=== PATIENT | female | born 1960 ===

== ENCOUNTER 2024-06-25 18:09 | Outpatient (REF) | payer OTHER, SELFPAY ==
[2024-06-25 18:14] LABS: MANUAL DIFF FLAG NO
[2024-06-25 18:20] LABS: Basophils Absolute Auto 0.1 X10*3/uL (0.0-0.2); Basophils Percent Auto 0.7 % (0-2); Eosinophils Absolute Auto 0.2 X10*3/uL (0.0-0.4); Eosinophils Percent Auto 1.8 % (0-4); Hemoglobin 10.9 g/dl (12.0-16.0); Imm Gran Abs Auto 0.03 X10*3/uL (0.00-0.03); Imm Gran Pct Auto 0.3 % (0.0-0.4); Lymphocytes Absolute Auto 2.8 X10*3/uL (1.2-4.9); Lymphocytes Percent Auto 32.1 % (20-40); Mean Corpuscular HGB Conc 31.1 g/dl (31.0-35.0); Mean Corpuscular Hemoglobin 28.1 pg (27.0-33.0); Mean Corpuscular Volume 90.2 fL (80.0-98.0); Mean Platelet Volume 9.4 fL (9.4-12.3); Monocytes Absolute Auto 0.8 X10*3/uL (0.1-1.2); Monocytes Percent Auto 9.3 % (2-11); Neutrophils Absolute Auto 4.9 x10*3/uL (2.0-8.3); Neutrophils Percent Auto 55.8 % (45-73); Platelet Count 343 X10*3/uL (160-400); Red Blood Count 3.88 X10*6/uL (4.20-5.50); Red Cell Distribution Width 15.8 % (11.0-16.0); White Blood Count 8.8 X10*3/uL (4.8-10.8)
[2024-06-25 19:02] LABS: Alanine Aminotransferase 26 U/L (0-31); Alkaline Phosphatase 112 U/L (39-117); Anion Gap 14 (12-20); Aspartate Amino Transferase 27 U/L (5-31); Bilirubin Direct 0.1 mg/dL (0.0-0.5); Bilirubin Total 0.3 mg/dL (0.0-1.0); Blood Urea Nitrogen 16 mg/dL (9-16); C Reactive Protein 0.38 mg/dL (< or = 0.50); Calcium 8.8 mg/dL (8.4-10.2); Carbon Dioxide 26 mmol/L (22-29); Chloride 106 mmol/L (96-108); Estimated Glomerular Filt Rate > 60; Glucose Random 95 mg/dL (60-115); Potassium 4.7 mmol/L (3.3-5.1); Sodium 141 mmol/L (135-145); Total Protein 7.3 g/dL (6.5-8.0)
[2024-06-25 19:04] LABS: Erythrocyte Sedimentation Rate 62 MM/HR (0-20)
--- OUTSIDE RECORDS SUMMARY | 2024-06-25 19:18 | XMS_ITS | Encounter Summary ---
Demographics Address [address] [place] [address] Mobile Phone Home Phone Email Address Preferred Language Tajik Marital Status Baptist Affiliation Unknown Race White Ethnic Group Unknown Author Organization [facility] Address [address] [place] [address] Support Name Relationship Address Phone Houston Haas Emergency Contact [address] [place] [address] Shana Danielle Emergency Contact [address] [place] [address] Care Team Providers Care Production Line Mechanic Name Role Phone CostaAlfreda Primary Care Provider [phone] Leela Nieto MANAGER TRANSITION Unavailable Unavailable Encounter Details Date Type Department Care Team (Late st Contact Info) Description 10/16/2019 Orders Only [facility] [address] [place] [phone] Marybeth Chacon MD [address] [place] [phone] Social History Tobacco Use Types Packs/Day Years Used Date Smoking Tobacco: Never Smokeless Tobacco: Never Alcohol Use Standard Drinks/Week Comments Yes 1 (1 standard drink = 0.6 oz pure alcohol) occasional, 1 drink per week at the most Comments No Sex and Gender Information Value Date Recorded Sex Assigned at Not on file Legal Sex Female 2:53 AM EDT Gender Identity Not on file Sexual Orientation Not on file 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 No / Unsure 10/16/2019 3:46 PM EDT documented as of this encounter Progress Notes * Staci De Los Santos - 10/16/2019 3:58 PM EDT . * Leela Nieto NP - 10/16/2019 3:58 PM EDT MCM sent documented in this encounter Plan of Treatment Upcoming Encounters Date Type Department Care Team (Late st Contact Info) Description 06/27/2024 11:00 AM EST Office Visit [facility] [address] [place] [address] Deanne Ibarra PA [address] [place] [address] HFU 08/16/2024 10:25 AM EDT CPE - Comprehensive Physical Exam [facility] [address] [place] [address] Alfreda Costa DO [address] [place] [address] Physical [facility] 02/27/2025 1:15 PM EST Radiology [address] Mammography [address] [place] [address] documented as of this encounter Procedures * Due to [place] [email or web address] law, this organization might not be sharing negative HIV tests. Procedure Name Priority Date/Time Associated Diagnosis Comments THYROID STIMULATING HORMONE (TSH) WITH FREE T4 REFLEX, SERUM Routine 10/16/2019 3:58 PM EDT Weight gain documented in this encounter Results * Due to [place] [email or web address] law, this organization might not be sharing negative HIV tests. * THYROID STIMULATING HORMONE (TSH) WITH FREE T4 REFLEX, SERUM (10/16/2019 3:58 PM EDT) TSH 0.49 0.40 - 4.50 mIU/L [facility] 10/16/2019 3:58 PM EDT 10/16/2019 11:00 PM EDT Narrative Resulting Agency Comment [id number] us Marybeth Chacon MD LABORATORY Final Result [facility] [address] [place] [address] documented in this encounter Visit Diagnoses Diagnosis Weight gain Abnormal weight gain documented in this encounter Additional Health Concerns Infection Onset Date Last Indicated Resolved Time COVID-19 Rule-Out 01/05/2021 01/05/2021 01/06/2021 11:16 AM EDT documented as of this encounter Care Teams Production Line Mechanic Relationship Specialty Start Date End Date Alfreda Costa DO [address] [place] [address] PCP - General Internal Medicine 09/03/19 Leela Nieto NP [address] [place] [address] PCP - Backup PCP Internal Medicine 09/03/19 11/17/22 documented as of this encounter
--- OUTSIDE RECORDS SUMMARY | 2024-06-25 19:18 | XMS_ITS | Encounter Summary ---
Demographics Address [address] [place] [address] Mobile Phone Home Phone Email Address [email or web address] Preferred Language Nauruan Marital Status Christianity Affiliation Unknown Race White Ethnic Group Unknown Author Organization [facility] Address [address] [place] [address] Support Name Relationship Address Phone [place] Haas Emergency Contact [address] [place] [address] Shana Danielle Emergency Contact [address] [place] [address] Care Team Providers Care Plain Goods Hemmer Name Role Phone IgorAlfreda Primary Care Provider [phone] Encounter Details Date Type Department Care Team (Late st Contact Info) Description 05/29/2024 Consult (Initial) NON FC SA [facility] [address] [place] [address] [facility], Unknown Provider Social History Tobacco Use Types Packs/Day Years Used Date Smoking Tobacco: Never Smokeless Tobacco: Never Alcohol Use Standard Drinks/Week Comments Not Currently 1 (1 standard drink = 0.6 oz pure alcohol) occasional, 1 drink per week at the most PHQ-2 Answer Date Recorded PHQ-2 Score 0 08/08/2023 Intimate Partner Violence Answer Date R ecorded Fear of Current or Ex-Partner Not on file Emotionally Abused Not on file 12/10/2022 Physically Abused Not on file 12/10/2022 Sexually Abused Not on file 12/10/2022 Feel Safe at Home Not on file 12/10/2022 Comments No Sex and Gender Information Value Date Recorded Sex Assigned at Not on file Legal Sex Female 2:53 AM EDT Gender Identity Not on file Sexual Orientation Not on file 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 Denies any recent illness. REASON FOR CONSULTATION: ? Depression HISTORY OF PRESENT ILLNESS: Patient is a 63-year-old female with history of depression, currently admitted for concerns of PE, attempted to evaluate for depression. Patient was attempted to be evaluated this afternoon, patient was present with a family member. The patient was reluctant to talk about her psychiatric issues and did not want to engage in conversation with his provider. Patient stated she needs to see a psychiatrist, she will inform the team at some other point. Patient wanted to end the conversation with this provider, this provider has respected her decision. PHYSICAL EXAM: VITAL SIGNS: Vital Signs: Last Charted: 24 Hr Minimum: 24 Hr Maximum: Temperature Oral 37.0 (05/29 07:30) 37.0 (05/29 03:50) 37.1 (05/28 19:15) Heart Rate 89 (05/29 07:30) 85 (05/29 03:50) 97 (05/28 19:15) Respiratory Rate 16 (05/29 07:30) 16 (05/29 00:25) 17 (05/28 19:15) Systolic BP 96 (05/29 07:30) 96 (05/28 19:15) 99 (05/29 03:50) Diastolic BP 61 (05/29 07:30) 58 (L) (05/28 19:15) 62 (05/29 00:25) Blood Pressure Location Left, Uppe (05/29 03:50) Blood Pressure Method Automatic (05/29 07:30) Oxygen Percent 90 (05/29 07:30) 90 (05/29 07:30) 96 (05/29 03:50) MEDICAL DECISION MAKING: Adjust Lamical dose and cymbalta dose after contacting providers. ASSESSMENT/PLAN: 1. Leukocytosis (D72.829) 2. Ambulatory dysfunction (R26.2) 3. Memory loss (R41.3) Diagnosis: History of major depressive disorder. Patient was attempted to be evaluated for depression but patient did not want to talk with this provider. This provider has reviewed the patient's medication list and recommend the following. The dose of Lamictal is over the recommended dose, would recommend contacting with her outpatient prescriber, the usual recommended dose for Lamictal is up to 400 mg a day. Also the dose of Cymbalta is maximum dose, would recommend dose adjustment after consulting her outpatient provider. If patient wants psychiatric evaluation, she was told to inform the nurse. This provider will reevaluate if patient feels she needs any psychiatric help. PROBLEM LIST/PAST MEDICAL HISTORY: Ongoing Bipolar (Patient Stated) Depression (Patient Stated) Historical No qualifying data SOCIAL HISTORY: Home/Environment Human Trafficking Red Flags None., 07/14/2023 Smoking/Tobacco Use Smoking tobacco use: Never smoker., 07/14/2023 Substance Abuse Use: Denies use., 07/14/2023 MEDICATIONS: Medications (18) Active Scheduled: (12) acetaminophen (Tylenol) 975 mg = 3 tab, Oral, Q8hr atorvastatin 40 mg = 1 tab, Oral, Daily cefTRIAXone 2 g, IV Piggyback, [id number] duloxetine (DULoxetine) 120 mg = 2 cap, Oral, Daily haloperidol 0.5 mg = 0.5 tab, Oral, BID lamoTRIgine 200 mg = 1 tab, Oral, TID oxyCODONE 20 mg = 4 tab, Oral, Q6hr polyethylene glycol 3350 (MiraLax) 17 g = 1 packet(s), Oral, Daily psyllium (Metamucil) 3.4 g = 1 packet(s), Oral, Daily senna 17.2 mg = 2 tab, Oral, Q Bedtime traMADol 25 mg = 0.5 tab, Oral, Q6hr traZODONE (traZODone) 150 mg = 1 tab, Oral, Q Bedtime Continuous: (0) PRN: (6) clonazePAM 0.5 mg = 1 tab, Oral, TID docusate (Colace) 100 mg = 1 cap, Oral, BID ondansetron (Zofran) 4 mg = 2 mL, IV Push, Q8hr polyethylene glycol 3350 (MiraLax) 17 g = 1 packet(s), Oral, Daily senna (Senokot) 8.6 mg = 1 tab, Oral, Daily sodium chloride (sodium chloride 0.9% flush) 10 mL, IV Push, As Directed ALLERGIES: Allergies (3) Active Reaction ampicillin rash Keflex rash penicillin rash LAB RESULTS: Hematology Basic - Last 36 hours (34) Result Date/Time WBC 16.1 (H) 05/29 02:20 RBC 3.44 (L) 05/29 02:20 Hgb 9.6 (L) 05/29 02:20 Hct 30.1 (L) 05/29 02:20 MCV 88 05/29 02:20 MCH 28 05/29 02:20 MCHC 32 05/29 02:20 RDW-SD 47 05/29 02:20 Platelet Count 516 (H) 05/29 02:20 MPV 8.6 05/29 02:20 NRBC Auto Abs 0.00 05/29 02:20 NRBC Auto Rel 0 05/29 02:20 Neutrophil Rel 62 05/29 02:20 Lymphocyte Rel 24 (L) 05/29 02:20 Monocyte Rel 7 05/29 02:20 Eosinophil Rel 2 05/29 02:20 Basophil Rel 0 05/29 02:20 Imm Gran Rel 4 05/29 02:20 Neutrophil Abs 10.1 (H) 05/29 02:20 Lymphocyte Abs 3.8 05/29 02:20 Monocyte Abs 1.1 (H) 05/29 02:20 Eosinophil Abs 0.32 05/29 02:20 Basophil Abs 0.07 05/29 02:20 Imm Gran Abs 1 05/29 02:20 Segs Man 58 05/28 02:18 Band Man 1 05/28 02:18 Lymphocyte Man 30 05/28 02:18 Monocyte Man 5 05/28 02:18 Eos Man 2 05/28 02:18 Basophil Man 0 05/28 02:18 Metamyelo Man 2 05/28 02:18 Myelocyte Man 2 05/28 02:18 Cells Counted 100 cell diff 05/28 02:18 Plt Estimate Appears Normal 05/28 02:18 Chemistry Comprehensive - Last 36 hours (23) Result Date/time Sodium Lvl 138 05/29 02:20 Potassium Lvl 4.6 05/29 02:20 Chloride Lvl 100 05/29 02:20 CO2 30 05/29 02:20 Glucose Level 109 (H) 05/29 02:20 BUN 12 05/29 02:20 Creatinine Lvl 0.83 05/29 02:20 AGAP 8.0 05/29 02:20 BUN/Creat 14 05/29 02:20 Total Protein 7.1 05/29 02:20 Albumin Lvl 3.0 (L) 05/29 02:20 Calcium Lvl 9.1 05/29 02:20 Alk Phos 199 (H) 05/29 02:20 AST 28 05/29 02:20 ALT 20 05/29 02:20 Globulin 4.1 05/29 02:20 Osmolality Calc 286 05/29 02:20 A/G Ratio 0.7 (L) 05/29 02:20 Magnesium Lvl 2.3 05/29 02:20 Phosphate 4.6 (H) 05/28 02:18 Bili Total 0.2 05/29 02:20 Bili Direct <0.2 05/29 02:20 Bili Indirect >0.0 05/29 02:20 RADIOLOGY/DIAGNOSTIC RESULTS: Radiology - Last 36 hours (0) No results in past 36 hours Diagnostics - Non-Radiology (3) Non-Invasive Vascular Report (05/21 11:05) Please review the final report in the patient?s chart. Cardiology Reports (05/21 08:32) Please review the final report in the patient?s chart. ED EKG-CernerCV (05/20 00:19) Please review the final report in the patient?s chart. documented in this encounter Plan of Treatment Upcoming Encounters Date Type Department Care Team (Late st Contact Info) Description 06/27/2024 11:00 AM EST Office Visit [facility] 4 [place] [phone] Deanne Ibarra PA 4 [place] [address] HFU 08/16/2024 10:25 AM EDT CPE - Comprehensive Physical Exam [facility] 4 [facility] [place] [phone] Alfreda Costa DO 4 [place] [address] Physical - [facility] 02/27/2025 1:15 PM EST Rad[facility] [address] [facility] [facility] [address] [facility] [place] [place] [address] documented as of this encounter Visit Diagnoses Not on filedocumented in this encounter Care Teams Plain Goods Hemmer Relationship Specialty Start Date End Date Alfreda Costa DO [address] [place] [address] PCP - General Internal Medicine 09/03/19 documented as of this encounter
--- OUTSIDE RECORDS SUMMARY | 2024-06-25 19:18 | XMS_ITS | Encounter Summary ---
Demographics Address [address] [place] [address] Mobile Phone Home Phone Email Address [email or web address] Preferred Language Guatemalan Marital Status Nondenominational Affiliation Unknown Race White Ethnic Group Unknown Author Organization [facility] Address [address] [place] [address] Support Name Relationship Address Phone [place] Jangain Emergency Contact [address] [place] [address] Shana Danielle Emergency Contact [address] [place] [address] Care Team Providers Care Mud Mill Tender Name Role Phone Alfreda Costa Primary Care Provider [phone] Leela Nieto MAIL HANDLER Unavailable Unavailable Encounter Details Date Type Department Care Team (Late st Contact Info) Description 10/16/2019 Orders Only [facility]. Rheumatology [address] [place] [phone] Renetta Bailon MD Social History Tobacco Use Types Packs/Day Years [...] as of this encounter Progress Notes * Renetta Bailon MD - 10/16/2019 3:58 PM EDT . * Renetta Bailon MD - 10/16/2019 3:58 PM EDT . documented in this encounter Plan of Treatment Upcoming Encounters Date Type Department Care Team (Late st Contact Info) Description 06/27/2024 11:00 AM EST Office Visit [facility] [address] [place] [address] Deanne Ibarra PA [address] [place] [address] HFU 08/16/2024 10:25 AM EDT CPE - Comprehensive Physical Exam [facility] [address] [place] [phone] Alfreda Costa DO 4 [place] [address] Physical - [facility] 02/27/2025 1:15 PM EST Radiology [address] Mammography [address] [place] [address] documented as of this encounter Procedures * Due to [place] [employer] law, this organization might not be sharing negative HIV tests. Procedure Name Priority Date/Time Associated Diagnosis Comments VENIPUNCTURE Routine 10/16/2019 3:58 PM EDT Hand pain, left Hand pain, right Chronic bilateral low back pain without sciatica C-REACTIVE PROTEIN (CRP) - INFLAMMATION Routine 10/16/2019 3:58 PM EDT Hand pain, left Hand pain, right ERYTHROCYTE SEDIMENTATION RATE (ESR) Routine 10/16/2019 3:58 PM EDT Hand pain, left Hand pain, right documented in this encounter Results * Due to [place] state law, this organization might not be sharing negative HIV tests. * C-REACTIVE PROTEIN (CRP) - INFLAMMATION (10/16/2019 3:58 PM EDT) C reactive protein 0.3 <8.0 mg/L [facility] 10/16/2019 3:58 PM EDT 10/16/2019 11:00 PM EDT Narrative Resulting Agency Comment [id number] Renetta Bailon MD LABORATORY Final Result [facility] [address] [place] [address] * ERYTHROCYTE SEDIMENTATION RATE (ESR), [place] (10/16/2019 3:58 PM EDT) Sedimentation Rate [place] (ESR) 6 < OR = 30 mm/h [facility] 10/16/2019 3:58 PM EDT 10/16/2019 11:00 PM EDT Narrative Resulting Agency Comment [id number] Renetta Bailon MD LAB SAME DAY RESULT Final Result Performing Organization Address [facility] Co de Phone Number [facility] [address] [place] [address] * HLA-B27 ANITGEN (10/16/2019 3:58 PM EDT) HLA-B27 Negative Negative [facility] 10/16/2019 3:58 PM EDT 10/16/2019 11:00 PM EDT Narrative Resulting Agency Comment [id number] Renetta Bailon MD LABORATORY Final Result Performing Organization Address [facility] Co de Phone Number [facility] [address] [place] [address] documented in this encounter Visit Diagnoses Diagnosis Hand pain, left Pain in limb Hand pain, right Pain in limb Chronic bilateral low back pain without sciatica documented in this encounter Additional Health Concerns Infection Onset Date Last Indicated Resolved Time COVID-19 Rule-Out 01/05/2021 01/05/2021 01/06/2021 11:16 AM EDT documented as of this encounter Care Teams Mud Mill Tender Relationship Specialty Start Date End Date Alfreda Costa DO [address] [place] [address] PCP - General Internal Medicine 09/03/19 Leela Nieto NP [address] [place] [address] PCP - Backup PCP Internal Medicine 09/03/19 11/17/22 documented as of this encounter
--- OUTSIDE RECORDS SUMMARY | 2024-06-25 19:18 | XMS_ITS | Encounter Summary ---
Demographics Address [address] [place] [address] Mobile Phone Home Phone Email Address Preferred Language Equatorial Guinean Marital Status Religion Affiliation Unknown Race White Ethnic Group Unknown Author Organization [facility] Address [address] [place] [address] Support Name Relationship Address Phone [place] Haas Emergency Contact [address] [place] [address] Shana Danielle Emergency Contact [address] [place] [address] Care Team Providers Care Tube Coverer Name Role Phone IgorAlfreda Primary Care Provider [phone] Encounter Details Date Type Department Care Team (Late st Contact Info) Description 05/30/2024 Minor Procedure/Test NON FC SA [facility] [address] [place] [address] Sv, Unknown Provider Social History Tobacco Use Types [...] on file documented as of this encounter Procedure Notes * Svh, Unknown Provider - 05/30/2024 10:06 AM ESTAssociated Order(s): PROCEDURE NOTE PROCEDURE: Placement of Midline Catheter at the patient's bedside INDICATION: Intravenous access requested for 2 weeks IV Ceftriaxone SKIP MINER BLASTING: Jodi Ortega RN MEDICATIONS: Local anesthesia with 1% Lidocaine GUIDANCE: Ultrasound DEVICE: BARD POLYMIDLINE 4 Fr x 20 cm single lumen polyurethane catheter lot # [id number] COMPLICATIONS: None TECHNIQUE: Informed consent was obtained from the patient after discussion of risks, benefits and alternatives. The patient was prepped and draped using maximal barrier technique. A timeout was performed. After local anesthesia with 1% Lodcaine, the Left Basilic vein was accessed with a 21 gauge needle under sterile sonographic guidance. The access needle was exchanged for a peel-away sheath over a 0/018 wire. The determination for the appropriate catheter length was based on anthropometric measurements. The Midline was inserted in the left Basilic vein with tip terminating in the axilla. The lumen was flushed with 20mL normal saline, aspirated blood briskly and terminally flushed with Heparin 50units per 5mL NS. The catheter was secure with a StatLock adhesive device and covered with a sterile dressing. The patient tolerated the procedure well with no insertion related complications. Placement of 4 Fr x 20 cm Single Bard PolyMidline via the Left Basilic vein. The position of the catheter tip in the axilla. documented in this encounter Plan of Treatment Upcoming Encounters Date Type Department Care Team (Late st Contact Info) Description 06/27/2024 11:00 AM EST Office Visit [facility] [address] [place] [phone] Deanne Ibarra PA 4 [place] [address] HFU 08/16/2024 10:25 AM EDT CPE - Comprehensive Physical Exam [facility] [address] [place] [phone] Alfreda Costa DO [address] [place] [address] Physical - [facility] S[facility] 02/27/2025 1:15 PM EST Radiology [address] Mammography [address] [place] [address] documented as of this encounter Procedures * Due to [facility] law, this organization might not be sharing negative HIV tests. Procedure Name Priority Date/Time Associated Diagnosis Comments PROCEDURE NOTE 05/30/2024 documented in this encounter Results * Due to [place] [employer] law, this organization might not be sharing negative HIV tests. * PROCEDURE NOTE (05/30/2024) Narrative 05/30/2024 Ordered by an unspecified provider. Procedure Note [facility], Unknown Provider - 05/30/2024 10:06 AM EST PROCEDURE: Placement of Midline Catheter at the patient's bedside INDICATION: Intravenous access requested for 2 weeks IV Ceftriaxone SKIP MINER BLASTING: Jodi Ortega RN MEDICATIONS: Local anesthesia with 1% Lidocaine GUIDANCE: Ultrasound DEVICE: BARD POLYMIDLINE 4 Fr x 20 cm single lumen polyurethane catheterlot # [id number] COMPLICATIONS: None TECHNIQUE: Informed consent was obtained from the patient after discussionof risks, benefits and alternatives. The patient was prepped and drapedusing maximal barrier technique. A timeout was performed. After localanesthesia with 1% Lodcaine, the Left Basilic vein was accessed with a 21 gaugeneedle under sterile sonographic guidance. The access needle was exchanged fora peel-away sheath over a 0/018 wire. The determination for theappropriate catheter length was based on anthropometric measurements. The Midlinewas inserted in the left Basilic vein with tip terminating in the axilla. The lumen was flushed with 20mL normal saline, aspirated blood brisklyand terminally flushed with Heparin 50units per 5mL NS. The catheter wassecure with a StatLock adhesive device and covered with a sterile dressing. The patient tolerated the procedure well with no insertion relatedcomplications. Placement of 4 Fr x 20 cm Single Bard PolyMidline via the Left Basilicvein. The position of the catheter tip in the axilla. us Unknown Provider [facility] PROCEDURE NON-FC (HIWAY) Fi nal Result documented in this encounter Visit Diagnoses Not on filedocumented in this encounter Care Teams Tube Coverer Relationship Specialty Start Date End Date Alfreda Costa DO [address] [place] [address] PCP - General Internal Medicine 09/03/19 documented as of this encounter
--- OUTSIDE RECORDS SUMMARY | 2024-06-25 19:18 | XMS_ITS | Encounter Summary ---
Demographics Address [address] [place] [address] Mobile Phone Home Phone Email Address Preferred Language Sri Lankan Marital Status Congregational Affiliation Unknown Race White Ethnic Group Unknown Author Organization [facility] Address [address] [place] [address] Support Name Relationship Address Phone [facility] Contact 2 [address] [place] [address] Shana Danielle Emergency Contact [address] [place] [address] Care Team Providers Care Health Care Manager Name Role Phone Alfreda Costa DO Primary Care Provider [phone] Reason for Visit * Reason Comments Other Sick letter Encounter Details Date Type Department Care Team (Late st Contact Info) Description 05/15/2024 Telephone [facility] [address] [place] [phone] Alfreda Costa DO 4 [place] [address] Other (Sick letter ) Social History Tobacco Use Types Packs/Day Years [...] on file documented as of this encounter Miscellaneous Notes * Telephone Encounter - TatoTrina webb - 05/15/2024 8:31 AM EST Pt calling, says her employer is requesting a note stating she is able to return to work. Pt was dizzy, fell, had wallace removed. Due to her dizziness, the employer says she is unable to return to work without a note. Pt wants this by noon today. Routing to PSS. Can you pls ask Dr. Costa to sign this letter by noon today? documented in this encounter Plan of Treatment Upcoming Encounters Date Type Department Care Team (Late st Contact Info) Description 06/27/2024 11:00 AM EST Office Visit [facility] [address] [place] [address] Deanne Ibarra PA 4 [place] [address] U 08/16/2024 10:25 AM EDT CPE - Comprehensive Physical Exam [facility] [address] [place] [address] Alfreda Costa DO 4 [place] [address] Physical - [facility] 02/27/2025 1:15 PM EST Radiology [address] Mammography 5 [place] [address] documented as of this encounter Visit Diagnoses Not on filedocumented in this encounter Care Teams Health Care Manager Relationship Specialty Start Date End Date Alfreda Costa DO 4 [place] [address] PCP - General Internal Medicine 09/03/19 documented as of this encounter
--- OUTSIDE RECORDS SUMMARY | 2024-06-25 19:18 | XMS_ITS | Encounter Summary ---
Demographics Address [address] [place] [address] Mobile Phone Home Phone Email Address Preferred Language Turkmen Marital Status Samaritan Affiliation Unknown Race White Ethnic Group Unknown Author Organization [facility] Address [address] [place] [address] Support Name Relationship Address Phone [place] [facility] Contact 2 [address] [place] [address] Shana Danielle Emergency Contact [address] [place] [address] Care Team Providers Care Adventure Guide Name Role Phone CostaAlfreda Primary Care Provider [phone] Encounter Details Date Type Department Care Team (Latest Contact Info) Description 05/21/2024 Professional Billing [facility] Based Manager Investment Donnell Qureshi MD Unsteady gait-PT; Leukocytosis, unspecified type; Acute anemia; Bilateral pulmonary embolism; Hypotension, unspecified hypotension type; Gram-positive cocci bacteremia; Muscle abscess; Acute deep vein thrombosis (DVT) of left peroneal vein; MOOD DISORDER xx0.33xx Social History Tobacco Use Types Packs/Day Years [...] on file documented as of this encounter Plan of Treatment Upcoming Encounters Date Type Department Care Team (Late st Contact Info) Description 06/27/2024 11:00 AM EST Office Visit [facility] 4 [place] [address] Deanne Ibarra PA 4 [place] [address] HFU 08/16/2024 10:25 AM EDT CPE - Comprehensive Physical Exam [facility] 4 [place] [phone] Alfreda Costa DO 4 [place] [address] Physical - LETTER SENT TO [facility] 02/27/2025 1:15 PM EST Radiology [facility] [address] [place] [address] documented as of this encounter Visit Diagnoses Diagnosis Unsteady gait-PT Abnormality of gait Leukocytosis, unspecified type Acute anemia Bilateral pulmonary embolism (HCC) Other pulmonary embolism and infarction Hypotension, unspecified hypotension type Gram-positive cocci bacteremia Bacteremia Muscle abscess Other disorder of muscle, ligament, and fascia Acute deep vein thrombosis (DVT) of left peroneal vein (HCC) MOOD DISORDER xx0.33xx documented in this encounter Care Teams Adventure Guide Relationship Specialty Start Date End Date Alfreda Costa DO 4 [place] [address] PCP - General Internal Medicine 09/03/19 documented as of this encounter
--- OUTSIDE RECORDS SUMMARY | 2024-06-25 19:19 | XMS_ITS | Encounter Summary ---
Demographics Address [address] [place] [address] Mobile Phone Home Phone Email Address Preferred Language Cypriot Marital Status Latter Day Affiliation Unknown Race White Ethnic Group Unknown Author Organization [facility] Address [address] [place] [address] Support Name Relationship Address Phone [place] [facility] Contact [address] [place] [address] Shana Danielle Emergency Contact [address] [place] [address] Care Team Providers Care Waiter/Waitress Economy Class Name Role Phone CostaAlfreda Primary Care Provider [phone] Encounter Details Date Type Department Care Team (Late Contact Info) Description 06/20/2024 Minor Procedure/Test [facility] [address] [place] [address] [facility], Unknown Provider Social History Tobacco Use Types [...] Encounters Date Type Department Care Team (Late Contact Info) Description 06/27/2024 11:00 AM EST Office Visit [facility] 4 [place] [address] Deanne Ibarra PA 4 [place] [address] U 08/16/2024 10:25 AM EDT CPE - Comprehensive Physical Exam [facility] 4 [place] [address] Alfreda Costa DO 4 [place] [address] Physical - LETTER SENT TO [facility] 02/27/2025 1:15 PM EST Radiology [facility]. Mammography 5 [place] [address] documented as of this encounter Visit Diagnoses Not on filedocumented in this encounter Care Teams Waiter/Waitress Economy Class Relationship Specialty Start Date End Date Alfreda Costa DO [address] [place] [address] PCP - General Internal Medicine 09/03/19 documented as of this encounter
--- OUTSIDE RECORDS SUMMARY | 2024-06-25 19:19 | XMS_ITS | Encounter Summary ---
Demographics Address [address] [place] [address] Mobile Phone Home Phone Email Address Preferred Language Tuvaluan Marital Status Samaritan Affiliation Unknown Race White Ethnic Group Unknown Author Organization [facility] Address [address] [place] [address] Support Name Relationship Address Phone [place] [facility] Contact [address] [place] [address] Shana Danielle Emergency Contact [address] [place] [address] Care Team Providers Care Machine Welder Name Role Phone IgorAlfreda Primary Care Provider [phone] Encounter Details Date Type Department Care Team (Late st Contact Info) Description 06/07/2024 Orders Only [facility] [address] [place] [address] [facility], Unknown Provider Social History Tobacco Use Types [...] as of this encounter Procedure Notes * [facility], Unknown Provider - 06/07/2024 3:56 PM ESTAssociated Order(s): UNCLASSIFIED TEST/PROCEDURE Images from the original note were not included. Procedures by Eliazar Hammond RN at 06/07/2024 3:51 PM Author: Eliazar Hammond RN Service: IV Access Nursing Author Type: Registered Nurse Filed: 06/07/2024 3:56 PM Date of Service: 06/07/2024 3:51 PM Status: Signed Swimming Coach: Eliazar Hammond RN (Registered Nurse) Procedure Orders 1. PROCESS DESCRIPTION WRITER PICC and Midline [[id number]] ordered by Eliazar Hammond RN [facility] IV Access Nursing Procedure Note PICC line insertion Date/Time: 06/07/2024 3:55 PM Performed by: Eliazar Hammond RN Provider type: External RN Vendor Reason for Insertion: intravenous antibiotics Successful placement: yes [place] Protocol Patient identity confirmed: Name and MRN on the patient's armband and Name and with patient Written consent obtained?: yes Procedure consent matches procedure to be performed: Yes All relevant documents/tests are correctly identified, labeled, and matched to patient: Yes Relevant tests/ Imaging studies available/reviewed: Yes Correct site marked: N/A Required blood products, implants, devices and special equipment available: Yes Immediately prior to the procedure a time out was called: Yes Pre-Procedure Central Line Bundle Sterile barrier technique: All Elements of full barrier protection used Skin preparation: ChloraPrep Ultrasound: Sterile sheath and gel used Site Assessment Vein Accessed: Right deep brachial Initial Arm Circumference (cm): 27 Procedure Details Local Anesthetic: Injectable Ultrasound guidance: yes Number of attempts: 1 Blood return in all lumens?: Yes All lumens flush freely?: Yes Catheter Secured: Catheter securement device Device Details Catheter Type: Bard PowerPICC Sherlock ECG Tip Catheter Lumens: Single lumen Catheter Size (fr): 4 Lot #: [id number] Catheter Total Length (cm): 38 Catheter External Length (cm): 0 Post-Procedure Central Line Bundle Guidewire Removal Confirmed?: Yes All Ports Capped?: Yes Verification of Line Placement: ECG guidance system Dressing Applied: Antimicrobial Post-Procedure Details Patient tolerance of procedure: Tolerated well, no immediate complications Significant events: None Plan: PICC line ready for immediate use Handoff Report Given to: MJ Alfredo RN Susan J Stgermain : 1960 CSN: [id number] documented in this encounter Plan of Treatment Upcoming Encounters Date Type Department Care Team (Late st Contact Info) Description 06/27/2024 11:00 AM EST Office Visit [facility] 4 [place] [phone] Deanne Ibarra PA 4 [place] [address] HFU 08/16/2024 10:25 AM EDT CPE - Comprehensive Physical Exam [facility] 4 [place] [phone] Alfreda Costa DO 4 [place] [address] Physical - LETTER SENT TO [facility] 02/27/2025 1:15 PM EST Radiology [address] [facility] [facility] 5 [place] [address] documented as of this encounter Procedures * Due to [place] [employer] law, this organization might not be sharing negative HIV tests. Procedure Name Priority Date/Time Associated Diagnosis Comments CBC AUTO DIFFERENTIAL Routine 06/14/2024 6:00 AM EST COMPREHENSIVE METABOLIC PANEL Routine 06/14/2024 5:00 AM EST CBC AUTO DIFFERENTIAL Routine 06/11/2024 5:00 AM EST BASIC METABOLIC PANEL Routine 06/11/2024 5:00 AM EST UNCLASSIFIED TEST/PROCEDURE 06/07/2024 3:51 PM EST documented in this encounter Results * Due to [place] [employer] law, this organization might not be sharing negative HIV tests. * (ABNORMAL) CBC AUTO DIFFERENTIAL (06/14/2024 6:00 AM EST) WBC 6.1 4.8 - 10.8 10*3/uL [facility] RBC 3.33(L) 4.20 - 5.40 10*6/uL [facility] Hemoglobin 9.3(L) 11.7 - 15.5 g/dL [facility] Hematocrit 28.9(L) 35.7 - 45.8 % [facility] MCV 86.8 81.0 - 99.0 fL [facility] MCH 27.9 26.0 - 34.0 pg [facility] MCHC 32.2 31.0 - 36.0 g/dL [facility] RDW 14.4 12.0 - 15.0 % [facility] RDW STANDARD DEVIATION 45.1 36.4 - 46.3 fL [facility] PLT 470(H) 140 - 440 10*3/uL [facility] Platelet mean volume 8.7(L) 9.4 - 12.3 fL [facility] Neutrophils % 36.6(L) 50.0 - 75.0 % [facility] Granulocytes.betty ture/100 leukocytes 0.5 0.0 - 0.9 % [facility] Lymphocytes % 45.6(H) 20.0 - 44.0 % [facility] Monocytes % 10.1 0.0 - 14.0 % [facility] Eosinophils % 6.4(H) 0.0 - 5.0 % [facility] Basophils % 0.8 0.0 - 2.0 % [facility] Neutrophils # 2.24 1.80 - 7.70 10*3/uL [facility] Immature Granulocytes # 0.03 0.00 - 0.03 10*3/uL [facility] Lymphocytes # 2.80 1.00 - 4.75 10*3/uL [facility] Monocytes # 0.60 0.00 - 0.60 10*3/uL [facility] Eosinophils # 0.40 0.00 - 0.80 10*3/uL [facility] Basophils # 0.10 0.00 - 0.20 10*3/uL [facility] Erythrocytes.nucl eated/100 leukocytes 0.0 0 - 0 /100 WBCs [facility] Erythrocytes.nucl eated <0.01 0.00 - 0.13 10*3/uL [facility] 06/14/2024 6:00 AM EST Narrative [facility] - 06/14/2024 8:44 AM EST NUR3^300^A^0156^^BED^0156 us Unknown Provider [facility] LABORATORY Final Resu lt [facility] [employer] [address] [place] [address] * (ABNORMAL) COMPREHENSIVE METABOLIC PANEL (06/14/2024 5:00 AM EST) Sodium 142 136 - 145 mmol/L [facility] Potassium 4.2 3.5 - 5.1 mmol/L [facility] Chloride 103 98 - 109 mmol/L [facility] Carbon dioxide 32 22 - 32 mmol/L [facility] Anion gap 11 >=0 [facility] Glucose 103(H) 60 - 99 mg/dL [facility] Creatinine 0.66 0.50 - 1.12 mg/dL [facility] Calcium 8.7 8.4 - 10.4 mg/dL [facility] Protein Total (Serum) 6.1(L) 6.6 - 8.7 g/dL [facility] Albumin 3.2(L) 3.5 - 5.0 g/dL [facility] Bilirubin Total 0.1(L) 0.2 - 1.2 mg/dL [facility] Alkaline phosphatase 123 40 - 129 U/L [facility] AST (SGOT) 27 0 - 33 U/L [facility] ALT (SGPT) 17 <=33 U/L [facility] Urea Nitrogen Blood (BUN) 8 8 - 23 mg/dL [facility] EGFR >90 >=60 mL/min/1.7 3m2 [facility] Comment: The estimated glomerular filtration rate (eGFR) is calculated using a new formula developed by the NKF-ASN task force to eliminate race-based correction factors. The new formula uses serum/plasma creatinine, age, and gender to determine eGFR. A value below 60mls/min might indicate kidney disease and will be flagged. For additional information, see Lia valentino al, Am J Kidney Dis. 2021;79(2):268-288, A Unifying Approach for GFR estimation: Recommendations of the NKF-ASN Task Force on Reassessing the Inclusion of Race in Diagnosing Kidney Disease . GLOBULIN, TOTAL 2.9 2.1 - 4.2 g/dL [facility] A/G RATIO 1.1(L) 1.5 - 3.0 [facility] 06/14/2024 5:00 AM EST Narrative [facility] - 06/14/2024 9:08 AM EST NUR3^300^A^0156^^BED^0156 NUR3\S\300\S\A\S\0156\S\S\BED\S\0156 us Unknown Provider [facility] LABORATORY Final Resu lt [facility] [employer] [address] [place] [id number] * (ABNORMAL) BASIC METABOLIC PANEL (06/11/2024 5:00 AM EST) Sodium 136 136 - 145 mmol/L [facility] Potassium 4.4 3.5 - 5.1 mmol/L [facility] Chloride 97(L) 98 - 109 mmol/L [facility] Carbon dioxide 28 22 - 32 mmol/L [facility] Urea Nitrogen Blood (BUN) 7(L) 8 - 23 mg/dL [facility] Creatinine 0.61 0.50 - 1.12 mg/dL [facility] Glucose 106(H) 60 - 99 mg/dL [facility] Calcium 8.5 8.4 - 10.4 mg/dL [facility] Anion gap 15 >=0 [facility] EGFR >90 >=60 mL/min/1.7 3m2 [facility] Comment: The estimated glomerular filtration rate (eGFR) is calculated using a new formula developed by the NKF-ASN task force to eliminate race-based correction factors. The new formula uses serum/plasma creatinine, age, and gender to determine eGFR. A value below 60mls/min might indicate kidney disease and will be flagged. For additional information, see Lia valentino al, Am J Kidney Dis. 2021;79(2):268-288, A Unifying Approach for GFR estimation: Recommendations of the NKF-ASN Task Force on Reassessing the Inclusion of Race in Diagnosing Kidney Disease . 06/11/2024 5:00 AM EST Narrative [facility] - 06/11/2024 9:45 AM EST NUR3^300^A^0156^^BED^0156 NUR3\S\300\S\A\S\0156\S\S\BED\S\0156 us Unknown Provider [facility] LABORATORY Final Resu lt [facility] [address] [place] [address] * (ABNORMAL) CBC AUTO DIFFERENTIAL (06/11/2024 5:00 AM EST) WBC 6.0 4.8 - 10.8 10*3/uL [facility] RBC 3.30(L) 4.20 - 5.40 10*6/uL [facility] Hemoglobin 9.2(L) 11.7 - 15.5 g/dL [facility] Hematocrit 28.4(L) 35.7 - 45.8 % [facility] MCV 86.1 81.0 - 99.0 fL [facility] MCH 27.9 26.0 - 34.0 pg [facility] MCHC 32.4 31.0 - 36.0 g/dL [facility] RDW 14.3 12.0 - 15.0 % [facility] RDW STANDARD DEVIATION 43.8 36.4 - 46.3 fL [facility] PLT 537(H) 140 - 440 10*3/uL [facility] Platelet mean volume 9.2(L) 9.4 - 12.3 fL [facility] Neutrophils % 60.4 50.0 - 75.0 % [facility] Granulocytes.betty ture/100 leukocytes 0.7 0.0 - 0.9 % [facility] Lymphocytes % 20.1 20.0 - 44.0 % [facility] Monocytes % 12.9 0.0 - 14.0 % [facility] Eosinophils % 5.4(H) 0.0 - 5.0 % [facility] Basophils % 0.5 0.0 - 2.0 % [facility] Neutrophils # 3.61 1.80 - 7.70 10*3/uL [facility] Immature Granulocytes # 0.04(H) 0.00 - 0.03 10*3/uL [facility] Lymphocytes # 1.20 1.00 - 4.75 10*3/uL [facility] Monocytes # 0.80(H) 0.00 - 0.60 10*3/uL [facility] Eosinophils # 0.30 0.00 - 0.80 10*3/uL [facility] Basophils # <0.03 0.00 - 0.20 10*3/uL [facility] Erythrocytes.nucl eated/100 leukocytes 0.0 0 - 0 /100 WBCs [facility] Erythrocytes.nucl eated <0.01 0.00 - 0.13 10*3/uL [facility] 06/11/2024 5:0 0 AM EST Narrative [facility] - 06/11/2024 9:41 AM EST NUR3^300^A^0156^^BED^0156 us Unknown Provider [facility] LABORATORY Final Resu lt [facility] [address] [place] [address] * UNCLASSIFIED TEST/PROCEDURE (06/07/2024 3:51 PM EST) Narrative 06/07/2024 3:51 PM EST Ordered by an unspecified provider. Procedure Note [facility], Unknown Provider - 06/07/2024 3:56 PM EST Images from the original note were not included. Procedures by Eliazar Hammond RN at 06/07/2024 3:51 PM Author: Eliazar Hammond RN Service: IV Access Nursing Author Type:Registered Nurse Filed: 06/07/2024 3:56 PM Date of Service: 06/07/2024 3:51 PM Status:Signed Swimming Coach: Eliazar Hammond RN (Registered Nurse) Procedure Orders 1. PROCESS DESCRIPTION WRITER PICC and Midline [[id number]] ordered by Eliazar Hammond RN [facility] IV Access Nursing Procedure Note PICC line insertion Date/Time: 06/07/2024 3:55 PM Performed by: Eliazar Hammond RN Provider type: External RN Vendor Reason for Insertion: intravenous antibiotics Successful placement: yes [place] Protocol Patient identity confirmed: Name and MRN on the patient's armband andName and with patient Written consent obtained?: yes Procedure consent matches procedure to be performed: Yes All relevant documents/tests are correctly identified, labeled, andmatched to patient: Yes Relevant tests/ Imaging studies available/reviewed: Yes Correct site marked: N/A Required blood products, implants, devices and special equipmentavailable: Yes Immediately prior to the procedure a time out was called: Yes Pre-Procedure Central Line Bundle Sterile barrier technique: All Elements of full barrier protection used Skin preparation: ChloraPrep Ultrasound: Sterile sheath and gel used Site Assessment Vein Accessed: Right deep brachial Initial Arm Circumference (cm): 27 Procedure Details Local Anesthetic: Injectable Ultrasound guidance: yes Number of attempts: 1 Blood return in all lumens?: Yes All lumens flush freely?: Yes Catheter Secured: Catheter securement device Device Details Catheter Type: Bard PowerPICC Sherlock ECG Tip Catheter Lumens: Single lumen Catheter Size (fr): 4 Lot #: [id number] Catheter Total Length (cm): 38 Catheter External Length (cm): 0 Post-Procedure Central Line Bundle Guidewire Removal Confirmed?: Yes All Ports Capped?: Yes Verification of Line Placement: ECG guidance system Dressing Applied: Antimicrobial Post-Procedure Details Patient tolerance of procedure: Tolerated well, no immediatecomplications Significant events: None Plan: PICC line ready for immediate use Handoff Report Given to: MJ Alfredo RN Susan J Stgermain : 1960 CSN: [id number] us Unknown Provider [facility] PROCEDURES Final Resu lt documented in this encounter Visit Diagnoses Not on filedocumented in this encounter Care Teams Machine Welder Relationship Specialty Start Date End Date Alfreda Costa DO [address] [place] [address] PCP - General Internal Medicine 09/03/19 documented as of this encounter
--- OUTSIDE RECORDS SUMMARY | 2024-06-25 19:19 | XMS_ITS | Encounter Summary ---
Demographics Address [address] [place] [address] Mobile Phone Home Phone Email Address [email or web address] Preferred Language Chadian Marital Status Christianity Affiliation Unknown Race White Ethnic Group Unknown Author Organization [facility] Address [address] [place] [address] Support Name Relationship Address Phone [place] Haas Emergency Contact [address] [place] [address] Shana Danielle Emergency Contact [address] [place] [address] Care Team Providers Care Vp Scientific Affairs Name Role Phone Alfreda Costa DO Primary Care Provider [phone] Leela Nieto BUNCHER HAND Unavailable Unavailable Reason for Visit * Reason Comments Prior Authorization Issue Encounter Details Date Type Department Care Team (Late st Contact Info) Description 12/27/2019 Telephone [facility] Magnetic Resonance Imaging [address] [place] [address] Alfreda Costa DO [address] [place] [id number] Prior Authorization Issue Social History Tobacco Use Types Packs/Day Years [...] have Coronavirus / COVID-19? No / Unsure 12/28/2019 10:04 AM EDT documented as of this encounter Miscellaneous Notes * Telephone Encounter - Nicole Odom LPN - 01/10/2020 11:11 AM EDT My chart message and letter sent to pt. * Telephone Encounter - Lashay Richard - 01/08/2020 2:20 PM EDT Call # 2 to patient. Left message asking to return call to [facility]. * Telephone Encounter - Lashay Richard - 01/04/2020 5:04 PM EDT Call # 1 to patient. Left message asking to return call to [facility]. * Telephone Encounter - Rosa Velasquez - 01/04/2020 2:59 PM EDT This exam is now approved with the updated information. Thank you, Benefit Coordinator Radiology * Telephone Encounter - Kathleen Conklin NP - 01/04/2020 2:42 PM EDT Recalculation of Tyrer/Cuzick model using additional family history data obtained from the patient raised her breast cancer risk from 19.7 to 24.7. Using this additional information she does meet criteria for high risk screening for breast cancer. When appealing this decision please use the addendum of my note dated 08/12/2016. * Telephone Encounter - Alfreda Costa DO - 01/04/2020 12:16 PM EDT Sent back to Kathleen conklin to clarify. * Telephone Encounter - Alfreda Costa DO - 01/04/2020 12:14 PM EDT Kathleen, Please clarify your note from 2017. At one point it states pt meets criteria for alternating mammogram and mri of breasts but at the end it states there is insufficient evidence for breast MRI. MRI was denied by insurance so pt is asking why at one Point they were covered and now not. Vaibhav Gant * Telephone Encounter - Lashay Richard - 01/04/2020 11:51 AM EDT Call to patient. Given message below from provider. Pt seen in [address] Conklin and MRI suggested. Pt had breast MRI in 2019- unable to make f/u as she was caring for ill parent. To PCP- pt wondering why she was approved for breast MRI in the past and now being denied. * Telephone Encounter - Lashay Richard - 01/02/2020 10:39 AM EDT Call # 2 to patient. Left message asking to return call to [facility]. * Telephone Encounter - Lashay Richard - 12/28/2019 9:49 AM EDT Call # 1 to patient. Left message asking to return call to [facility]. * Telephone Encounter - Alfreda Costa DO - 12/27/2019 3:44 PM EDT Please let pt know she wont be having a breast MRI * Telephone Encounter - Rosa Velasquez - 12/27/2019 3:24 PM EDT We are unable to process your request for MRI breast screening for cancer. The insurance requires the patient meets criteria for this exam, which is 20% or higher lifetime risk of developing breast cancer. Per the Hem/Onc notes There is insufficient evidence to recommend for breast MRI screening according to the NCCN guidelines version 1.2016 given that her life time risk for breast cancer is below the high risk level of 20%. ??We recommend surveillance with monthly breast self-exam, physicianbreast exam (at least once a year). As per the [place] [employer] Guidelines, we also recommend yearly mammograms starting at age 45 and continuing for as long as a woman is in good health. Patient was instructed on self-breast exam and written information was provided. Thank you, Benefit Coordinator Radiology documented in this encounter Plan of Treatment Upcoming Encounters Date Type Department Care Team (Late st Contact Info) Description 06/27/2024 11:00 AM EST Office Visit [facility] [address] [place] [address] Deanne Ibarra PA [address] [place] [address] [facility] 08/16/2024 10:25 AM EDT CPE - Comprehensive Physical Exam [facility] [address] [place] [address] Alfreda Costa DO [address] [place] [address] Physical - [facility] 02/27/2025 1:15 PM EST Radiology [address] Mammography [address] [place] [address] documented as of this encounter Visit Diagnoses Not on filedocumented in this encounter Additional Health Concerns Infection Onset Date Last Indicated Resolved Time COVID-19 Rule-Out 01/05/2021 01/05/2021 01/06/2021 11:16 AM EDT documented as of this encounter Care Teams Vp Scientific Affairs Relationship Specialty Start Date End Date Alfreda Costa DO [address] [place] [address] PCP - General Internal Medicine 09/03/19 Leela Nieto NP [address] [place] [address] PCP - Backup PCP Internal Medicine 09/03/19 11/17/22 documented as of this encounter
--- OUTSIDE RECORDS SUMMARY | 2024-06-25 19:19 | XMS_ITS | Encounter Summary ---
Demographics Address [address] [place] [address] Mobile Phone Home Phone Email Address Preferred Language Austrian Marital Status Mormonism Affiliation Unknown Race White Ethnic Group Unknown Author Organization [facility] Address [address] [place] [address] Support Name Relationship Address Phone [place] Haas Emergency Contact [address] [place] [address] Shana Danielle Emergency Contact [address] [place] [address] Care Team Providers Care Technical Report Writer Name Role Phone IgorAlfreda Primary Care Provider Encounter Details Date Type Department Care Team (Late st Contact Info) Description 06/05/2024 Consult (Initial) [facility] [address] [place] [address] [facility], Unknown Provider Social History Tobacco Use Types [...] as of this encounter Consult Notes * [facility], Unknown Provider - 06/05/2024 9:35 PM EST Consults by Mitchell Elena IV, MD at 06/05/2024 8:46 PM Author: Mitchell Elena IV, MD Service: Infectious Disease Author Type: Physician Filed: 06/05/2024 9:35 PM Date of Service: 06/05/2024 8:46 PM Status: Signed Furniture Arranger: Mitchell Elena IV, MD (Physician) Related Notes: Original Note by Herman Sutherland MD (Fellow) filed at 06/05/2024 9:12 PM Consult Orders 1. Inpatient consult to Infectious Diseases [[id number]] ordered by Dejah Sweeney MD at 06/05/24 1342 Infectious Disease Consult Note Date of admission: 06/01/2024 11:18 AM Consult requested by: Attending Provider: Eliazar Morgan MD [phone] Reason for consult: Groin Abscess Chief complaint: Blood in urine History of present illness: Dorothy Vázquez is a 63 y.o. female with h/o major depressive disorder, memory loss recently hospitalized at [facility] where she was treated for strep intermedius bacteremia, pelvic abscess-???s/p drainage on 05/29 and was treated with ceftriaxone/Flagyl with tentative plan to complete 14 days of therapy ending 06/04. Over the course of hospitalization she was found to have DVT/pulmonary embolism and she was started on anticoagulation. She was admitted to [facility] 4 days back with hematuria. ID was engaged today because of CT chest findings of nodular lesions in the left lower zone. She has remained hemodynamically stable and afebrile throughout hospital her blood cultures drawn on 06/02 are negative. She did have leukocytosis on presentation with WBC count of 14.1 which has sincenormalized. Review of care everywhere reveals extensive workup done in [facility] including a transthoracic and transesophageal echocardiogram without any vegetations. MRI of the spine was done as well with noevidence of an infective focus. She had a CTAP on presentation on 06/01 which revealed a small residual intramuscular collection within the left adductor dian/obturator externus muscle consistent with residual abscess. She had grouped pulmonary nodules left lower lobe. Outside CT chest with contrast from 05/20 had shown acute pulmonary embolism in the right proximal to distal subsegmental lower lobe arteries. CT scan with contrast from 06/01 had shown non-occlusive filling defect in a segmental pulmonary artery branch of the left lower lobe. She continues to complain of pain in her groin. She denies any respiratory symptoms. She has complained of night sweats but mentions that they have been going on for over 5 years since menopause. 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 Review of systems: All other components of the review of systems are negative, except those described in the history of present illness. Past Medical History: Diagnosis Date ??? Anxiety ??? Depression ??? High cholesterol ??? Lung nodule s/p resection ??? Syncope Past Surgical History: Procedure Laterality Date ??? LUNG SEGMENTECTOMY 11/15/2022 MGB resection of a spiculated lung lesion; path is neg for malignancy Social History Tobacco Use ??? Smoking status: Never ??? Smokeless tobacco: Never Substance Use Topics ??? Alcohol use: Never ??? Drug use: Never Family History Problem Relation Age of Onset ??? Hyperlipidemia Mother ??? Prostate cancer Father ??? Graves' disease Brother ??? Breast cancer Maternal Grandmother ??? Ovarian cancer Maternal Grandmother ??? Lung cancer Maternal Grandfather ??? Graves' disease Paternal Grandmother ??? Breast cancer Paternal Grandmother ??? Bladder Cancer Paternal Grandmother ??? Liver cancer Paternal Grandfather ??? Uterine cancer Father's Sister ??? Ovarian cancer Paternal Great-grandmother Medications: apixaban, 5 mg, oral, q12h SERAFIN atorvastatin, 40 mg, oral, Daily [START ON 06/06/2024] cefTRIAXone, 1 g, intravenous, q24h SERAFIN clonazePAM, 0.5 mg, oral, 3x daily docusate sodium, 100 mg, oral, 2x daily [START ON 06/06/2024] DULoxetine DR, 120 mg, oral, Daily iron sucrose, 100 mg, intravenous, Daily lamoTRIgine, 200 mg, oral, 2x daily metroNIDAZOLE, 500 mg, intravenous, q8h SERAFIN senna, 17.2 mg, oral, Nightly sodium chloride, 10 mL, intravenous, See admin instructions And sodium chloride, 10 mL, intraluminal, q12h SERAFIN sodium chloride, 2.5-10 mL, intravenous, See admin instructions And sodium chloride, 2.5-10 mL, intravenous, q12h SERAFIN traZODone, 150 mg, oral, Nightly Allergies: Allergies Allergen Reactions ??? Ampicillin Rash ??? Cephalexin Rash ??? Penicillin G Potassium Rash Physical Exam: Temp: [36.9 ??C (98.4 ??F)-38 ??C (100.4 ??F)] 37 ??C (98.6 ??F) Heart Rate: [93-97] 93 Resp: [18-19] 18 BP: (97-113)/(54-62) 113/62 SpO2: [95 %-100 %] 95 % General appearance: no obvious distress, well nourished HEENT: normocephalic, atraumatic, no icterus, no conjunctival erythema CVS: regular rate and rhythm Lungs: No respiratory distress/accessory muscle use Abdomen: soft, non-distended, non-tender MSK: no obvious abnormality, no major joint effusion Extremities: no edema or swelling Skin: no obvious rashes or abnormal lesions Neuro: alert and oriented, no focal deficits Psych: appropriate mood and affect Laboratory data: I have independently reviewed all recent lab results; including all microbiological data and culture results from previous years. Results from last 7 days Lab Units 06/05/24 03406/04/24 2241 06/04/24 0957 WBC 10*3/uL 9.5 10.7 10.2 HEMOGLOBIN g/dL 9.2* 9.1* 9.7* HEMATOCRIT % 28.8* 27.7* 30.7* PLATELETS 10*3/uL 830* 803* 813* Results from last 7 days Lab Units 06/05/24 03406/04/247 06/04/24 0344 SODIUM mmol/L 137 136 138 POTASSIUM mmol/L 3.7 4.0 4.0 CHLORIDE mmol/L 99 98 99 CARBON DIOXIDE mmol/L 27 28 26 BUN mg/dL 7 8 10 CREATININE mg/dL 0.62 0.64 0.71 TOTAL BILIRUBIN mg/dL -- 0.3 0.4 ALKALINE PHOSPHATASE U/L -- 132* 163* ALT U/L -- 9* 12 AST U/L -- 19 22 GLUCOSE mg/dL 122* 115* 186* Microbiology data: Microbiology Results (last 21 days) Procedure Component Value - Date/Time Blood Culture, Peripheral #1 [[id number]] Collected: 06/02/241641 Lab Status: Preliminary result Specimen: Blood from Venous, Peripheral Updated: 06/03/24 0646 Culture No growth to date Narrative: [facility] Received Date: MICRO NUMBER: [id number] SPECIMEN QUALITY: Adequate SOURCE: BLOOD VENOUS, PERIPHERAL STATUS: PRELIMINARY COMMENT: Aerobic and anaerobic bottle received. Blood Culture, Peripheral #2 [[id number]] Collected: 06/02/241641 Lab Status: Preliminary result Specimen: Blood from Venous, Peripheral Updated: 06/03/24 0652 Culture No growth to date Narrative: [facility] Received Date: MICRO NUMBER: [id number] SPECIMEN QUALITY: Adequate SOURCE: BLOOD VENOUS, PERIPHERAL STATUS: PRELIMINARY COMMENT: Aerobic and anaerobic bottle received. Radiology: I have reviewed all imaging data available during this hospitalization independently. CT Chest W Contrast Result Date: 06/05/2024 Impression: Clustered nodular opacities in the left lower lobe favored to be infectious in etiology. Recommend repeat CT in 8 weeks to evaluate for complete resolution. Postsurgical changes status post wedge resection left upper lobe. Soft tissue thickening along the suture margin. Recommend correlation with prior studies attention on follow-up imaging. A(n) Yellow actionable finding has been communicated to the ordering or responsible provider via the [employer] system on06/05/2024 1:18 PM. Receipt of this communication by the responsible provider will be documented in [employer] upon receiving acknowledgement if applicable, Message ID [id number]. If this radiology report contains a blank impression section, it is an incomplete radiology report. Please contact the interpreting radiologist or applicable radiology division as soon as possible to obtain the completed interpretation. Workstation ID: [id number] Up-to-date CT equipment and radiation dose reduction techniques were employed. CTDIvol: 5.2 mGy. DLP: 154 mGy-cm. Impression: Dorothy Vázquez is a 63 y.o. female with history of major depressive disorder, memory loss, recent hospitalization at [facility] for strep intermedius associated pelvic abscess s/p drainage and / and a new lead diagnosed DVT with pulmonary embolism for which she was started on anticoagulation. She was admitted at [facility] because of hematuria stop she has remained hemodynamically stable and afebrile throughout her hospitalization with blood cultures on 06/02 remaining negative. Her persistent groin pain is likely related to the residual abscess within the left adductor dian/obturator externus muscle. DVT may also be contributing to her symptoms. We recommend continuation of ceftriaxone/Flagyl with repeat imaging in 2 weeks to assess for the resolution of collection prior to discontinuing antibiotics. She can be transition to oral cefadroxil 1 g twice daily and p.o. Flagyl at discharge. The pulmonary nodular lesions in the left lower lobe are likely secondary to evolving pulmonary infarcts. # Strep intermedius bacteremia --gluteal abscess s/p drainage at [facility] on 05/[address] scan on 06/01 showing residual collection; MAXIMO negative for any vegetations at [facility] # DVT with pulmonary embolism with a cluster of nodular pulmonary lesions in the left lower zone likely secondary to evolving pulmonary infarcts Recommendations: Continue ceftriaxone/Flagyl for now Can switch to PO cefadroxil 1gm twice daily and Flagyl 500 mg twice daily The plan of care was discussed with the primary hospital team. Thank you for this consultation. Please don't hesitate to call the Infectious Disease team for questions or any acute changes in patient's clinical condition. Herman Sutherland MD Fellow Infectious Diseases Dorothy Vázquez : 1960 CSN: [id number] Infectious Disease Attending Addendum I have seen and examined the patient with the ID fellow - Dr. Sutherland on the date of service and we discussed the history, physical exam, laboratory/radiographic data and plan as stated in the note. Strep intermedius bacteremia, likely GI in origin leading to obturator abscess. Collection size is improved. Still needs some consolidation at this time. Potentially needs a colonoscopy down the line. The ID team will continue to follow. Please don't hesitate to call us with any questions or changesin patient's condition. Mitchell Elena IV, MD MS Transplant/General Infectious Disease Independent Living Instructorsupervisor [place] [facility] documented in this encounter Plan of Treatment Upcoming Encounters Date Type Department Care Team (Late st Contact Info) Description 06/27/2024 11:00 AM EST Office Visit [facility] [address] [place] [phone] Deanne Ibarra PA [address] [place] [address] U 08/16/2024 10:25 AM EDT CPE - Comprehensive Physical Exam [facility] [address] [place] [address] Alfreda Costa DO [address] [place] [address] Physical - [facility] 02/27/2025 1:15 PM EST Radiology [facility]. Mammography [address] [place] [address] documented as of this encounter Visit Diagnoses Not on filedocumented in this encounter Care Teams Technical Report Writer Relationship Specialty Start Date End Date Alfreda Costa DO [address] [place] [address] PCP - General Internal Medicine 09/03/19 documented as of this encounter
--- OUTSIDE RECORDS SUMMARY | 2024-06-25 19:19 | XMS_ITS | Encounter Summary ---
Demographics Address [address] [place] [address] Mobile Phone Home Phone Email Address Preferred Language Emirati Marital Status Gnosticism Affiliation Unknown Race White Ethnic Group Unknown Author Organization [facility] Address [address] [place] [address] Support Name Relationship Address Phone Houston Haas Emergency Contact [address] [place] [address] Shana Danielle Emergency Contact [address] [place] [address] Care Team Providers Care Insole Department Worker Name Role Phone IgorAlfreda Primary Care Provider [phone] Encounter Details Date Type Department Care Team (Late st Contact Info) Description 06/02/2024 Consult (Initial) [facility] [address] [place] [address] [facility], Unknown Provider Social History Tobacco Use Types [...] as of this encounter Consult Notes * [facility], Unknown Provider - 06/02/2024 5:11 PM EST Consults by Fanny Dominguez MD at 06/02/2024 1:15 PM Author: Fanny Dominguez MD Service: Neurology Author Type: Physician Filed: 06/02/2024 5:11 PM Date of Service: 06/02/2024 1:15 PM Status: Addendum Meat Pickler: Fanny Dominguez MD (Physician) Related Notes: Original Note by Fanny Dominguez MD (Physician) filed at 06/02/2024 5:06 PM Consult Orders 1. Inpatient consult to Neurology [[id number]] ordered by Bin Fairchild MD at 06/02/24 1255 [facility] Neurology Initial Consult Note History of Present Illness: Ms. Vázquez is a 63 y.o. female with a history of HLD, syncope, cognitive impairment, bipolar disorder, for whom neurology is consulted for progressive proximal BLE weakness. She was recently admitted at [facility] (discharged 05/30/24) for intra-abdominal abscessof unknown etiology; this was drained by IR. Blood culture was positive for Streptococcus intermedius and she was treated with and discharged on ceftriaxone and metronidazole. She was also found to have pelvic DVT and PE and was discharged on apixaban. While home and getting home PT, she noted progressive weakness of the proximal BLE such that she now has significant difficulty elevating her knee while walking. She now uses a walker for the first time in life and has been using it for the past few weeks. Also while at home after discharge from [facility], she noticed hematuria and suprapubic pain, which prompted her admission at [facility]. She was seen by urology and recommended to continue apixaban use. Chart review shows BLE weakness started on 05/17. When I tried to confirm that with the patient today (06/02), she was unable to corroborate date. She did mention to me a recent fall with head strike and without loss of consciousness - chart review notes this occurred on 05/05/24 - and she was seen at [facility] for this. She endorses anesthesia of the groin during the same time period she has had suprapubic pain, but she is unable to state whether this has been ongoing for days or weeks. She denies recent diplopia, dysphagia, dysarthria, dysphonia, paresthesias, incontinence, constipation, retention. She follows with [facility] neurology for dizziness and cognitive impairment. Past Medical History: Diagnosis Date ??? Anxiety ??? Depression ??? High cholesterol ??? Syncope No past surgical history on file. Medications: Current Facility-Administered Medications Medication Dose Route Frequency Provider Last Rate Last Admin ??? apixaban (ELIQUIS) tablet 5 mg 5 mg oral q12h [facility] Juma Hernandez MD 5 mg at 06/02/24925 ??? cefTRIAXone (ROCEPHIN) injection 1 g 1 g intravenous q24h [facility] Yovany Khan MD 1 gat 06/02/24925 ??? docusate sodium (COLACE) capsule 100 mg 100 mg oral 2x daily Juma Hernandez MD 100 mg at 06/02/24925 ??? metroNIDAZOLE (FLAGYL) 500 mg in 0.9% NaCl 100 mL IVPB premix 500 mg intravenous q8h [facility] Yovany Khan MD 0 mL/hr at 06/01/24 2333 500 mg at 06/02/24 0604 ??? naloxone (NARCAN) injection 0.4 mg 0.4 mg intravenous q2h PRN Juma Hernandez MD ??? naloxone 0.04 mg injection 0.04 mg intravenous q3min PRN Juma Hernandez MD ??? oxyCODONE IR (ROXICODONE) tablet 5 mg 5 mg oral q3h PRN Juma Hernandez MD 5 mg at 06/02/24 0957 Or ??? oxyCODONE IR (ROXICODONE) tablet 20 mg 20 mg oral q6h PRN Juma Hernandez MD 20 mg at 06/02/24 1210 ??? senna (SENOKOT) tablet 17.2 mg 17.2 mg oral Nightly Juma Hernandez MD 17.2 mg at 06/01/24 2233 ??? sodium chloride 0.9% flush 2.5-10 mL 2.5-10 mL intravenous See admin instructions Juma Hernandez MD And ??? sodium chloride 0.9% flush 2.5-10 mL 2.5-10 mL intravenous q12h [facility] Juma Hernandez MD 10 mL at 06/02/24 0926 ??? traZODone (DESYREL) tablet 150 mg 150 mg oral Nightly Juma Hernandez MD 150 mg at 06/01/24 4084 Allergies: Allergies Allergen Reactions ??? Ampicillin Rash ??? Cephalexin Rash ??? Penicillin G Potassium Rash Social history: Social History Tobacco Use ??? Smoking status: Never ??? Smokeless tobacco: Never Substance Use Topics ??? Alcohol use: Never ??? Drug use: Never Family history: No family history on file. ROS: as above Vital Signs: BP 116/70 (BP Location: Right arm, Patient Position: Sitting) Pulse 93 Temp 36.6 ??C (97.9 ??F)(Axillary) Resp 20 Ht 1.638 m (5' 4.5 ) Wt 68.5 kg (151 lb 0.2 oz) SpO2 99% BMI 25.52 kg/m?? General Medical Exam: General: Clinically well-appearing, comfortable. Eyes/ENT: See cranial nerve examination. Neck: Adequate range of motion without tenderness. Respiratory: No respiratory distress Cardiac/vascular: Extremities well-perfused Neurologic Exam: Mental status: awake, alert, appropriately responsive to questions and commands. Repetition intact.Follows two-step commands CRANIAL NERVES: II: No visual field defects III-IV-: Pupils equal round and reactive to light. Normal conjugate, extra- ocular eye movements in all directions of gaze. No nystagmus. No ptosis V: Normal facial sensation VII: Normal facial symmetry and movements VIII: Normal gross hearing IX-X: Normal palatal movement XI: Normal shoulder shrug and head rotation XII: Normal tongue range of motion. Speech is not dysarthric MOTOR: No appreciable abnormal movements. No pronator drift. Tone is within normal limits Strength/Power (MRC grade out of 5): Neck flexion 5 Neck extension 5 Upper extremity power, when graded out of 5, revealed: Right Left Shoulder abduction 5 5 Elbow extension 5 5 Elbow flexion 5 5 Wrist extension 5 5 Wrist flexion 5 5 Finger extension 5 5 Deep finger flexion (D2-3) 5 5 Deep finger flexion (D4-5) 5 5 Finger abduction 5 5 Lower extremity strength, when reported the same way, showed: Right Left Hip flexion 4- 4- Hip adduction 4 4 Hip abduction 5 5 Knee flexion 5 5 Knee extension 5 5 Ankle dorsiflexion 5 5 Ankle plantarflexion 5 5 Foot inversion 5 5 Foot eversion 5 5 Toe extension 4 4 Toe flexion 5 5 Deep Tendon Reflexes (DTRs): Right Left Biceps 2+ 2+ Triceps 2+ 2+ Brachioradialis* 3+ 3+ Patellar 3+ 3+ Achilles 2+ 2+ *spreads to fingers Pectoralis spread: Yes on right Crossed adductors: Yes bilaterally Dumont's sign: Yes on left Plantar responses: Mute Clonus: 2-3 beats on left Jaw jerk: negative SENSORY: Light tough: Normal and symmetrical Pinprick: Normal and symmetrical. No sensory level with pinprick as patient has intact and symmetric sensation to pinprick throughout BLE and abdomen Temperature: Normal and symmetrical to cold sensation of tuning fork in all four extremities Vibration: Normal and symmetrical at first toe bilaterally COORDINATION: Normal qtvvab-al-xczv testing bilaterally GAIT: When attempting to get out of bed to use the walker, she has to rely on hands on walker and flexes torso forward. Cannot take a step due to difficulty of lifting either knee antigravity while standing Imaging: CTA chest with contrast (at [facility] on 05/20/24): 1.Multiple bilateral lower lobe acute segmental/subsegmental pulmonary emboli, more on the left compared to right. No evidence of right heart strain. No central pulmonary embolism. 2.Interstitial alveolar edema, right greater than left. There may be small left lower lobe pulmonary infarcts/hemorrhage in the distribution of left lower lobe pulmonary emboli vs regions of of alveolar edema 3.Incidental 0.7 cm right thyroid nodule, with macro/rim calcification. MRI pelvis with and without contrast (at [facility] on 05/21/24): IMPRESSION: 1.Findings suspicious for 3.6 cm abscess collection within the left obturator muscle. 2.Urinary bladder wall thickening could represent cystitis, correlation with urinalysis is advised. IMPRESSION: 63F PMH HLD, syncope, cognitive impairment, bipolar disorder, for whom neurology is consulted for progressive proximal BLE weakness. She had a recent abscess and Streptococcus intermedius bacteremia, as well as pelvic DVT and PE. Along the same timeline of this clinical course, she has had symmetric, progressive, proximal BLE weakness. Exam shows aforementioned weakness, which localizes to upper lumbar spine (when disregarding toe extension), along with signs of hyperreflexia in BLE but also in BUE. With negative jaw jerk and presence of bilateral weakness and hyperreflexia, localization points to spinal cord at this time. Given bacteremia, would evaluate for infective endocarditis and consider septic emboli as mechanismof cord disease. Also with pelvic DVT recently, would consider paradoxical embolism and thus would get TTE with bubble study. While she may have had an infarct of the cord in a manner that would affect the corticospinal tracts and not sensory tracts, this is uncommon. As such, again taking into consideration her bacteremia,recommend evaluating for epidural abscess with spinal cord imaging with and without contrast. Givenrecent apixaban initiation, epidural hematoma also a consideration. RECOMMENDATIONS: - Blood cultures q48h until negative - If blood culture results positive, recommend infectious disease involvement for management with consideration of potential infective endocarditis - TTE with bubble study - If vegetations not appreciated on TTE with bubble study, recommend MAXIMO - MRI C-spine, T-spine, and L-spine with and without contrast - If no etiology for clotting identified, consider malignancy workup with thorough CT (chest/abdomen/pelvis) or PET scan with and without contrast Please contact neurology consult service as needed. Kwasi Dominguez MD Agent of Neurology documented in this encounter Plan of Treatment Upcoming Encounters Date Type Department Care Team (Late st Contact Info) Description 06/27/2024 11:00 AM EST Office Visit [facility] [address] [place] [phone] Deanne Ibarra PA [address] [place] [address] HFU 08/16/2024 10:25 AM EDT CPE - Comprehensive Physical Exam [facility] [address] [place] [phone] Alfreda Costa DO [address] [place] [address] Physical - LETTER SENT [facility] 02/27/2025 1:15 PM EST Radiology [address] [facility] [address] [place] [address] documented as of this encounter Visit Diagnoses Not on filedocumented in this encounter Care Teams Insole Department Worker Relationship Specialty Start Date End Date Alfreda Costa DO [address] [place] [address] PCP - General Internal Medicine 09/03/19 documented as of this encounter
--- OUTSIDE RECORDS SUMMARY | 2024-06-25 19:19 | XMS_ITS | Encounter Summary ---
Demographics Address [address] [place] [address] Mobile Phone Home Phone Email Address [email or web address] Preferred Language Kenyan Marital Status Bahai Affiliation Unknown Race White Ethnic Group Unknown Author Organization [facility] Address [address] [place] [address] Support Name Relationship Address Phone [place] Haas Emergency Contact [address] [place] [address] Shana Danielle Emergency Contact [address] [place] [address] Care Team Providers Care Sorting Livestock Worker Name Role Phone Alfreda Costa DO Primary Care Provider [phone] Reason for Visit * Reason Comments Hospital F/U Encounter Details Date Type Department Care Team (Late st Contact Info) Description 05/31/2024 Telephone [facility] [address] [place] [phone] Alfreda Costa DO [address] [place] [address] Hospital F/U Social History Tobacco Use Types Packs/Day Years [...] encounter Miscellaneous Notes * Telephone Encounter - Alla Elise RN - 05/31/2024 1:38 PM EST See other TM from today. * Telephone Encounter - Karo Elise - 05/31/2024 1:26 PM EST HFU. documented in this encounter Plan of Treatment Upcoming Encounters Date Type Department Care Team (Late st Contact Info) Description 06/27/2024 11:00 AM EST Office Visit [facility] [address] [place] [phone] Deanne Ibarra PA [address] [place] [address] HFU 08/16/2024 10:25 AM EDT CPE - Comprehensive Physical Exam [facility] [address] [place] [address] Alfreda Costa DO [address] [place] [address] Physical - LETTER SENT TO [facility] 02/27/2025 1:15 PM EST [address] [facility] [address] [place] [phone] documented as of this encounter Visit Diagnoses Not on filedocumented in this encounter Care Teams Sorting Livestock Worker Relationship Specialty Start Date End Date Alfreda Costa DO [address] [place] [address] PCP - General Internal Medicine 09/03/19 documented as of this encounter
--- OUTSIDE RECORDS SUMMARY | 2024-06-25 19:19 | XMS_ITS | Encounter Summary ---
Demographics Address [address] [place] [address] Mobile Phone Home Phone Email Address Preferred Language Surinamese Marital Status Scientology Affiliation Unknown Race White Ethnic Group Unknown Author Organization [facility] Address [address] [place] [address] Support Name Relationship Address Phone [place] Haas Emergency Contact [address] [place] [address] Shana Danielle Emergency Contact [address] [place] [address] Care Team Providers Care Manufacturing Lab Technician Name Role Phone Alfreda Costa DO Primary Care Provider [phone] Reason for Visit * Reason Comments [facility] Hematuria Encounter Details Date Type Department Care Team (Late st Contact Info) Description 05/31/2024 Telephone [facility] [address] [place] [phone] Alfreda Costa DO [address] [place] [address] [facility] Communication; Hematuria Social History Tobacco Use Types Packs/Day Years [...] encounter Miscellaneous Notes * Telephone Encounter - Nolvia Saavedra RN - 06/01/2024 9:08 AM EST Plan and disposition: sent to ER Patient informed that his/her current symptoms require an evaluation in an emergency room setting. His/her symptoms are not appropriate for [facility] or any type of walk in clinic. The patient is informed that if he/she does not go to an ER to seek a medical evaluation for the symptoms described below, then this could lead to a delay in his/her care and may result in a life-threatening situation. Patient verbally acknowledges this nurse's instructions that the ER is the most appropriate place for a medical evaluation for his/her current symptoms. Chief Complaint: Daughter of Dorothy Haas 63 y.o. female calling with complaint of hematuria (very dark), cramping in lower abdomen, Denies burning, fever , other bleeding Onset occurred: today Emergent symptoms: none Allergies: is allergic to sulfamethoxazole-trimethoprim, ampicillin, cat, keflex, oxycodone, and penicillin [penicillin g potassium]. Medications: Current Outpatient Medications: Haloperidol (HALDOL) 0.5 MG tablet, Take 0.5 mg by mouth in the morning and at bedtime., Disp: , Rfl: Atorvastatin Calcium (LIPITOR) 40 MG tablet, Take one tablet (40 mg total) by mouth 1 (one) time each day for cholesterol., Disp: 90 tablet, Rfl: 1 traZODone HCl (DESYREL) 150 MG tablet, TAKE ONE TO TWO TABLETS BY MOUTH EVERY NIGHT AT BEDTIME, Disp: , Rfl: Lamotrigine (LaMICtal) 200 MG tablet, Take 200 mg by mouth - Take 3 tablets daily., Disp: , Rfl: clonazePAM (KlonoPIN) 0.5 MG tablet, 0.5 mg 3 (three) times a day if needed, Disp: , Rfl: DULoxetine HCl (CYMBALTA) 60 MG capsule, Take by mouth 1 (one) time each day, Disp: , Rfl: Amphetamine-Dextroamphetamine 30 MG Tab, 1 tablet twice daily, Disp: , Rfl: Pertinent hx: Eliquis 5mg BID Current home treatment: none. Effectiveness of current home tx: N/A * Telephone Encounter - Azul Ardon - 06/01/2024 9:07 AM EST Len is calling back Call transferred to nurse que * Telephone Encounter - Amie Herrera RN - 06/01/2024 9:02 AM EST Daughter Len calling. Patient gave permission to speak to her. Call dropped. Attempted to call len back x 2 with no ring. * Telephone Encounter - Karo Elise - 06/01/2024 9:00 AM EST Reason for call: hematuria How long have you had these symptoms? This am Is the patient having an emergent symptom? No Follow-up action needed: call transferred to Nurse queue * Telephone Encounter - Karo Elise - 05/31/2024 1:15 PM EST Calling back for nurse. * Telephone Encounter - Mya Zepeda RN - 05/31/2024 1:05 PM EST Josefina P/T with [facility] calling. SOC today. P/T asking when patient's wound dressing to left pelvic areacan come off/wound care orders. Advised they need to contact the provider who placed this to obtainorders. Stated she understood. Also stated they will be seeing patient 2xwk. Per PCP patient needs HFU. Patient's dtr calling (patient gave verbal permission to speak with her). D/C home last night from [facility]. Receiving O/T and P/T services. Calling to schedule HFU. Future Appointments Date Time Provider Department Phone 06/07/24 1:00 PM Taniya Carlos, ADOLFO [facility] [phone] 06/08/24 1:00 PM Alfreda Costa DO [facility] [phone] 08/16/24 10:25 AM Alfreda Costa DO [facility] [phone] 02/27/25 1:15 PM HIGH SPEED OPERATOR MAMMOGRAPHY [address] [facility] [phone] Dtr asking if patient can be seen sooner than this appt? This is the soonest hfu appt, are you ok with a different day/time? * Telephone Encounter - Karo Elise - 05/31/2024 1:03 PM EST [facility] documented in this encounter Plan of Treatment Upcoming Encounters Date Type Department Care Team (Late st Contact Info) Description 06/27/2024 11:00 AM EST Office Visit [facility] [address] [place] [phone] Deanne Ibarra PA [address] [place] [address] HFU 08/16/2024 10:25 AM EDT CPE - Comprehensive Physical Exam [facility] [address] [place] [phone] Alfreda Costa DO [address] [place] [address] Physical - LETTER SENT TO [facility] 02/27/2025 1:15 PM EST Radiology [address] [facility] [address] [place] [address] documented as of this encounter Visit Diagnoses Not on filedocumented in this encounter Care Teams Manufacturing Lab Technician Relationship Specialty Start Date End Date Alfreda Costa DO [address] [place] [address] PCP - General Internal Medicine 09/03/19 documented as of this encounter
--- OUTSIDE RECORDS SUMMARY | 2024-06-25 19:19 | XMS_ITS | Encounter Summary ---
Demographics Address [address] [place] [address] Mobile Phone Home Phone Email Address Preferred Language Latvian Marital Status Denominational Affiliation Unknown Race White Ethnic Group Unknown Author Organization [facility] Address [address] [place] [address] Support Name Relationship Address Phone [facility] Emergency Contact [address] [place] [address] Shana Danielle Emergency Contact [address] [place] [address] Care Team Providers Care Art Model Name Role Phone CostaAlfreda Primary Care Provider [phone] Encounter Details Date Type Department Care Team (Late st Contact Info) Description 06/01/2024 Hospital/Inpatient [address] [address] [place] [facility]/[address] [address] Social History Tobacco Use Types Packs/Day Years [...] Upcoming Encounters Date Type Department Care Team ([facility] st Contact Info) Description 06/27/2024 11:00 AM EST Office Visit [facility] [address] [place] [address] Deanne Ibarra PA [address] [place] [address] HFU 08/16/2024 10:25 AM EDT CPE - Comprehensive Physical Exam [facility] [address] [place] [phone] Alfreda Costa DO [address] [place] [address] Physical - [facility] 02/27/2025 1:15 PM EST Radiology [facility]. Mammography [address] [place] [phone] documented as of this encounter Procedures * Due to [place] state law, this organization might not be sharing negative HIV tests. Procedure Name Priority Date/Time Associated Diagnosis Comments CBC AUTO DIFFERENTIAL Routine 06/08/2024 5:49 AM EST MAGNESIUM Routine 06/08/2024 5:49 AM EST BASIC METABOLIC PANEL Routine 06/08/2024 5:49 AM EST C-REACTIVE PROTEIN Routine 06/07/2024 3: 14 PM EST SEDIMENTATION RATE Routine 06/07/2024 3: 14 PM EST CBC AUTO DIFFERENTIAL Routine 06/07/2024 5:31 AM EST MAGNESIUM Routine 06/07/2024 5:31 AM EST BASIC METABOLIC PANEL Routine 06/07/2024 5:31 AM EST CBC AUTO DIFFERENTIAL Routine 06/06/2024 7:13 AM EST MAGNESIUM Routine 06/06/2024 7:13 AM EST BASIC METABOLIC PANEL Routine 06/06/2024 7:13 AM EST MYELOPROLIFERATIVE NEOPLASMS (MPN) CORE DIAGNOSTIC PANEL Routine 06/05/2024 3:49 AM EST IMMUNOGLOBULINS PANEL (IGG, IGA, IGM) Routine 06/05/2024 3:49 AM EST CBC AUTO DIFFERENTIAL Routine 06/05/2024 3:49 AM EST MAGNESIUM Routine 06/05/2024 3:49 AM EST FOLATE Routine 06/05/2024 3:49 AM EST VITAMIN B12 Routine 06/05/2024 3:49 AM EST BASIC METABOLIC PANEL Routine 06/05/2024 3:49 AM EST CBC AUTO DIFFERENTIAL Routine 06/04/2024 10:41 PM EST LACTIC ACID, PLASMA Routine 06/04/2024 1 0:41 PM EST TYPE AND SCREEN Routine 06/04/2024 10:37 PM EST COMPREHENSIVE METABOLIC PANEL Routine 06/04/2024 10:37 PM EST VON WILLEBRAND FACTOR ANTIGEN Routine 06/04/2024 11:04 AM EST FACTOR 8 RISTOCETIN COFACTOR Routine 06/04/2024 11:04 AM EST CBC AUTO DIFFERENTIAL Routine 06/04/2024 9:57 AM EST MANUAL DIFFERENTIAL Routine 06/04/2024 9 :57 AM EST HOT DIP GALVANIZER ANTIBODY Routine 06/04/2024 3:44 AM EST MORENO (SM) ANTIBODY Routine 06/04/2024 3 :44 AM EST DNA ANTIBODY, DOUBLE-STRANDED Routine 06/04/2024 3:44 AM EST COMPLEMENT C4 Routine 06/04/2024 3:44 AM EST COMPLEMENT C3 Routine 06/04/2024 3:44 AM EST AMADOU SCREEN, IFA, W/REFLEX TO TITER & PATTERN Routine 06/04/2024 3:44 AM EST CBC AUTO DIFFERENTIAL Routine 06/04/2024 3:44 AM EST MANUAL DIFFERENTIAL Routine 06/04/2024 3 :44 AM EST MAGNESIUM Routine 06/04/2024 3:44 AM EST IRON SATURATION Routine 06/04/2024 3:44 AM EST FERRITIN Routine 06/04/2024 3:44 AM EST VITAMIN D 1,25 DIHYDROXY Routine 025 3:44 AM EST ALDOLASE Routine 06/04/2024 3:44 AM EST HEPATIC FUNCTION PANEL Routine 3:44 AM EST BASIC METABOLIC PANEL Routine 06/04/2024 3:44 AM EST PARANEOPLASTIC ANTIBODY EVALUATION W/REFLEX TO TITER AND LINE BLOT, BASIC Routine 06/04/2024 3:44 AM EST RHEUMATOID FACTOR Routine 06/03/2024 6:1 9 PM EST SEDIMENTATION RATE Routine 06/03/2024 6: 19 PM EST LACTATE DEHYDROGENASE Routine 06/03/2024 6:19 PM EST C-REACTIVE PROTEIN Routine 06/03/2024 11 :01 AM EST CBC AUTO DIFFERENTIAL Routine 06/03/2024 11:01 AM EST MAGNESIUM Routine 06/03/2024 11:01 AM EST BASIC METABOLIC PANEL Routine 06/03/2024 11:01 AM EST BLOOD CULTURE Routine 06/02/2024 4:42 PM EST BLOOD CULTURE Routine 06/02/2024 4:42 PM EST CK Routine 06/02/2024 12:03 PM EST CBC Routine 06/02/2024 8:13 AM EST TSH REFLEX FREE T4 Routine 06/02/2024 8: 13 AM EST COMPREHENSIVE METABOLIC PANEL Routine 06/02/2024 8:13 AM EST documented in this encounter Results * Due to [place] state law, this organization might not be sharing negative HIV tests. * (ABNORMAL) BASIC METABOLIC PANEL (06/08/2024 5:49 AM EST) Sodium 142 135 - 145 mmol/L [facility] Potassium 3.7 3.5 - 5.3 mmol/L [facility] Chloride 103 98 - 107 mmol/L [facility] Carbon dioxide 31 22 - 32 mmol/L [facility] Urea Nitrogen Blood (BUN) 9 7 - 23 mg/dL [facility] Creatinine 0.61 0.50 - 1.20 mg/dL [facility] Glucose 118(H) 65 - 99 mg/dL [facility] Calcium 8.5(L) 8.6 - 10.5 mg/dL [facility] Anion gap 8 5 - 15 [facility] EGFR >90 >=60 mL/min/1.7 3m2 [facility] Comment: The estimated glomerular filtration rate (eGFR) is calculated using a new formula developed by the NKF-ASN task force to eliminate race-based correction factors. The new formula uses serum/plasma creatinine, age, and gender to determine eGFR. A value below 60mls/min might indicate kidney disease and will be flagged. For additional information, see Lia et al, Am J Kidney Dis. 2021;79(2):268-288, A Unifying Approach for GFR estimation: Recommendations of the NKF-ASN Task Force on Reassessing the Inclusion of Race in Diagnosing Kidney Disease . 06/08/2024 5:49 AM EST us Unknown Provider [facility] LABORATORY Final Resu lt Performing Organization Address City/[facility]/ZIP Co de Phone Number [facility] [employer] [address] [place] [phone] * MAGNESIUM (06/08/2024 5:49 AM EST) Magnesium 1.9 1.6 - 2.4 mg/dL [facility] 06/08/2024 5:49 AM EST us Unknown Provider [facility] LABORATORY Final Resu lt Performing Organization Address City/[facility]/ZIP Co de Phone Number [facility] [employer] [address] [place] [phone] * (ABNORMAL) CBC AUTO DIFFERENTIAL (06/08/2024 5:49 AM EST) WBC 8.0 3.8 - 10.8 10*3/uL [facility] RBC 3.01(L) 3.80 - 5.10 10*6/uL [facility] Hemoglobin 8.4(L) 11.7 - 15.5 g/dL [facility] Hematocrit 26.3(L) 35.0 - 45.0 % [facility] MCV 87.4 80.0 - 100.0 fL [facility] MCH 27.9 27.0 - 33.0 pg [facility] MCHC 31.9(L) 32.0 - 36.0 g/dL [facility] RDW 13.8 11.0 - 15.0 % [facility] PLT 678(H) 140 - 400 10*3/uL [facility] Platelet mean volume 8.6 7.5 - 12.5 fL [facility] Neutrophils % 49.8 % [facility] Granulocytes.betty ture/100 leukocytes 0.4 0.0 - 0.9 % [facility] Lymphocytes % 31.3 % [facility] Monocytes % 13.7 % [facility] Eosinophils % 3.9 % [facility] Basophils % 0.9 % [facility] Neutrophils # 3.96 1.50 - 7.80 10*3/uL [facility] Immature Granulocytes # 0.03 <=0.03 10*3/uL [facility] Lymphocytes # 2.50 0.85 - 3.90 10*3/uL [facility] Monocytes # 1.10(H) 0.20 - 0.95 10*3/uL [facility] Eosinophils # 0.30 0.02 - 0.50 10*3/uL [facility] Basophils # 0.10 0.00 - 0.20 10*3/uL [facility] Erythrocytes.nucl eated/100 leukocytes 0.0 /100 WBCs [facility] Erythrocytes.nucl eated <0.01 <0.01 10*3/uL [facility] 06/08/2024 5:49 AM EST us Unknown Provider [facility] LABORATORY Final Resu lt [facility] [employer] [address] [place] [phone] * (ABNORMAL) C-REACTIVE PROTEIN (06/07/2024 3:14 PM EST) C reactive protein 29.3(H) <=9.9 mg/L [facility] 06/07/2024 3:14 PM EST us Unknown Provider [facility] LABORATORY Final Resu lt [employer] [address] [place] [address] * (ABNORMAL) SEDIMENTATION RATE (06/07/2024 3:14 PM EST) ESR 60(H) <30 mm/Hr mm/Hr [facility] 06/07/2024 3:14 PM EST us Unknown Provider [facility] LABORATORY Final Resu lt [facility] [employer] [address] [place] [address] * (ABNORMAL) BASIC METABOLIC PANEL (06/07/2024 5:31 AM EST) Sodium 140 135 - 145 mmol/L [facility] Potassium 4.3 3.5 - 5.3 mmol/L [facility] Chloride 102 98 - 107 mmol/L [facility] Carbon dioxide 30 22 - 32 mmol/L [facility] Urea Nitrogen Blood (BUN) 9 7 - 23 mg/dL [facility] Creatinine 0.58 0.50 - 1.20 mg/dL [facility] Glucose 100(H) 65 - 99 mg/dL [facility] Calcium 9.0 8.6 - 10.5 mg/dL [facility] Anion gap 8 5 - 15 [facility] EGFR >90 >=60 mL/min/1.7 3m2 [facility] Comment: The estimated glomerular filtration rate (eGFR) is calculated using a new formula developed by the NKF-ASN task force to eliminate race-based correction factors. The new formula uses serum/plasma creatinine, age, and gender to determine eGFR. A value below 60mls/min might indicate kidney disease and will be flagged. For additional information, see Lia et al, Am J Kidney Dis. 2021;79(2):268-288, A Unifying Approach for GFR estimation: Recommendations of the NKF-ASN Task Force on Reassessing the Inclusion of Race in Diagnosing Kidney Disease . 06/07/2024 5:31 AM EST us Unknown Provider [facility] LABORATORY Final Resu lt Performing Organization Address City/[facility]/ZIP Co de Phone Number [facility] [address] [place] [address] * MAGNESIUM (06/07/2024 5:31 AM EST) Magnesium 2.1 1.6 - 2.4 mg/dL [facility] 06/07/2024 5:31 AM EST us Unknown Provider [facility] LABORATORY Final Resu lt [facility] [employer] [address] [place] [id number] * (ABNORMAL) CBC AUTO DIFFERENTIAL (06/07/2024 5:31 AM EST) WBC 7.1 3.8 - 10.8 10*3/uL [facility] RBC 3.14(L) 3.80 - 5.10 10*6/uL [facility] Hemoglobin 8.7(L) 11.7 - 15.5 g/dL [facility] Hematocrit 27.6(L) 35.0 - 45.0 % [facility] MCV 87.9 80.0 - 100.0 fL [facility] MCH 27.7 27.0 - 33.0 pg [facility] MCHC 31.5(L) 32.0 - 36.0 g/dL [facility] RDW 13.9 11.0 - 15.0 % [facility] PLT 749(H) 140 - 400 10*3/uL [facility] Platelet mean volume 8.6 7.5 - 12.5 fL [facility] Neutrophils % 45.2 % [facility] Granulocytes.betty ture/100 leukocytes 0.3 0.0 - 0.9 % [facility] Lymphocytes % 38.1 % [facility] Monocytes % 12.2 % [facility] Eosinophils % 3.1 % [facility] Basophils % 1.1 % [facility] Neutrophils # 3.22 1.50 - 7.80 10*3/uL [facility] Immature Granulocytes # <0.03 <=0.03 10*3/uL [facility] Lymphocytes # 2.70 0.85 - 3.90 10*3/uL [facility] Monocytes # 0.90 0.20 - 0.95 10*3/uL [facility] Eosinophils # 0.20 0.02 - 0.50 10*3/uL [facility] Basophils # 0.10 0.00 - 0.20 10*3/uL [facility] Erythrocytes.nucl eated/100 leukocytes 0.0 /100 WBCs [facility] Erythrocytes.nucl eated <0.01 <0.01 10*3/uL [facility] 06/07/2024 5:31 AM EST us Unknown Provider [facility] LABORATORY Final Resu lt [facility] [employer] [address] [place] [address] * (ABNORMAL) BASIC METABOLIC PANEL (06/06/2024 7:13 AM EST) Sodium 136 135 - 145 mmol/L [facility] Potassium 4.5 3.5 - 5.3 mmol/L [facility] Chloride 98 98 - 107 mmol/L [facility] Carbon dioxide 30 22 - 32 mmol/L [facility] Urea Nitrogen Blood (BUN) 10 7 - 23 mg/dL [facility] Creatinine 0.63 0.50 - 1.20 mg/dL [facility] Glucose 109(H) 65 - 99 mg/dL [facility] Calcium 9.1 8.6 - 10.5 mg/dL [facility] Anion gap 8 5 - 15 [facility] EGFR >90 >=60 mL/min/1.7 3m2 [facility] Comment: The estimated glomerular filtration rate (eGFR) is calculated using a new formula developed by the NKF-ASN task force to eliminate race-based correction factors. The new formula uses serum/plasma creatinine, age, and gender to determine eGFR. A value below 60mls/min might indicate kidney disease and will be flagged. For additional information, see Lia et al, Am J Kidney Dis. 2021;79(2):268-288, A Unifying Approach for GFR estimation: Recommendations of the NKF-ASN Task Force on Reassessing the Inclusion of Race in Diagnosing Kidney Disease . 06/06/2024 7:13 AM EST us Unknown Provider [facility] LABORATORY Final Resu lt [facility] [employer] [address] [place] [address] * MAGNESIUM (06/06/2024 7:13 AM EST) Pathologist [facility] Magnesium 2.3 1.6 - 2.4 mg/dL [facility] 06/06/2024 7:13 AM EST us Unknown Provider [facility] LABORATORY Final Resu lt [facility] [employer] [address] [place] [address] * (ABNORMAL) CBC AUTO DIFFERENTIAL (06/06/2024 7:13 AM EST) Pathologist [facility] WBC 10.0 3.8 - 10.8 10*3/uL [facility] RBC 3.38(L) 3.80 - 5.10 10*6/uL [facility] Hemoglobin 9.4(L) 11.7 - 15.5 g/dL [facility] Hematocrit 30.0(L) 35.0 - 45.0 % [facility] MCV 88.8 80.0 - 100.0 fL [facility] MCH 27.8 27.0 - 33.0 pg [facility] MCHC 31.3(L) 32.0 - 36.0 g/dL [facility] RDW 13.7 11.0 - 15.0 % [facility] PLT 821(H) 140 - 400 10*3/uL [facility] Platelet mean volume 8.8 7.5 - 12.5 fL [facility] Neutrophils % 48.6 % [facility] Granulocytes.betty ture/100 leukocytes 0.3 0.0 - 0.9 % [facility] Lymphocytes % 35.1 % [facility] Monocytes % 13.0 % [facility] Eosinophils % 2.3 % [facility] Basophils % 0.7 % [facility] Neutrophils # 4.85 1.50 - 7.80 10*3/uL [facility] Immature Granulocytes # 0.03 <=0.03 10*3/uL [facility] Lymphocytes # 3.50 0.85 - 3.90 10*3/uL [facility] Monocytes # 1.30(H) 0.20 - 0.95 10*3/uL [facility] Eosinophils # 0.20 0.02 - 0.50 10*3/uL [facility] Basophils # 0.10 0.00 - 0.20 10*3/uL [facility] Erythrocytes.nucl eated/100 leukocytes 0.0 /100 WBCs [facility] Erythrocytes.nucl eated <0.01 <0.01 10*3/uL [facility] 06/06/2024 7:13 AM EST us Unknown Provider [facility] LABORATORY Final Resu lt [facility] [employer] [address] [place] [address] * MYELOPROLIFERATIVE NEOPLASMS (MPN) CORE DIAGNOSTIC PANEL (06/05/2024 3:49 AM EST) SPECIMENS Specimen Number: [id number] Specimen Type: Blood Specimen Source: Venous, Peripheral Linked Case: N/A Collection/Procedure Date: 06/05/2024 Specimen Description: N/A [facility] JAK2 gene.p.[id number] Not Detected Not Detected, See Comments [facility] CALR MUTATION (EXON 9) Not Detected Not Detected, See Comments [facility] JAK2 gene exon 12 mutation analysis Not Detected Not Detected, See Comments [facility] MPL gene.p.[id number] Not Detected Not Detected, See Comments [facility] INTERPRETATION A negative result does NOT exclude a diagnosis of myeloproliferative neoplasm (MPN) such as Polycythemia vera (PV) Essential thrombocythemia (ET), or Myelofibrosis (MF). ??Although this assay detects the majority mutations observed in MPN a negative result does not rule out the presence of a rare or low level mutation. ??Alterations outside of the tested areas of the JAK2, CALR and MPL genes will not be detected. ??Results should be interpreted in the context of other clinical findings. [facility] CLINICAL HISTORY Obturator Abcess, unknown etiology [facility] TEST DESCRIPTION Intended Use: The ION Ampliseq Custom Panel is designed to detect mutations in genes frequently mutated in human myeloid neoplasms. Clinically actionable mutations are reported, providing therapeutic, diagnostic, or prognostic information that may guide a patient to the appropriate therapy or clinical trial. Mutations which may be suitable for monitoring residual disease are also reported. Method: For tissue specimens, areas of tumor were identified by the pathologist and microdissected. The collected cells were lysed and genomic DNA was purified. DNA was quantified by spectrophotometry/fl uorometry. A library was created using multiplex PCR targeting oncogene hot spot mutations (see details below). PCR amplicons were isolated, followed by ligation of a sequencing linker and barcode for patient identification. Realtime-PCR was used to quantify the library. A sequencing template was prepared first by diluting the library, then by performing emulsion PCR to amplify and link the amplicon to a sequencing bead. Sequencing template was loaded onto an [employer] next generation sequencer and data was analyzed using [employer] V[employer] Caller and [employer] Gene software packages using [id number]_9 (Anatoly HG19) as the reference sequence. ION Ampliseq Custom Panel JAK2(V617F) [id number] MPL ??CALR Contact lab for detail of gene exon/hotspot codons covered in the assay. DNA sequences used as references for this panel of genes can be found at: http://www.ncbi.nlm. nih.gov/refseq/rsg/ The mutation nomenclature is based on the convention recommended by the Human Genome Variation Society (http://www.hgvs.org /mutnomen/). [employer]: When appropriate multiplex PCR amplification of 5 normal gene fragments (100 to 500bp), serving as internal controls, was used to assess the DNA integrity of the specimen. The real-time PCR cycle threshold value of the specimen may also used to evaluate DNA quality/quantity. Appropriate positive and negative controls were run and confirm assay sensitivity and specificity. Detection limit of diluted positive control DNA in a background of wild-type alleles was 5% for mis-sense mutations and 5% for insertions & deletions when sequencing coverage is >500X. When appropriate, mutations detected by [employer] sequencing were confirmed as follows. Patient DNA was analyzed using real time PCR. Specific primer sets were used to amplify the gene region of interest and PCR the amplicons were digested with ExoSAP. DNA products were purified from the S[employer] sequencing reaction and analyzed using capillary gel electrophoresis and fluorescence detection. Limitations: These mutation panels are designed to detect mutations previously identified in cancer genome studies. Most genes are not sequenced in their entirety and mutations outside the targeted regions will not be detected. In addition, this method will not detect gross genetic alterations, such as large deletions, duplications, and inversions. In instances when sequencing coverage falls below 500X a mutation <10% of the total population may not be detected. If a variant of unknown significance is detected, limited information regarding pathogenicity can be inferred since the assay does not distinguish between a somatic mutation and a germ line variant when testing the tumor component alone. [facility] REFERENCES 1. Meg et al. COSMIC: mining complete cancer genomes in the Catalogue of Somatic Mutations in Cancer (COSMIC) Nucleic Acids Research, 2011; 39:945-50. COSMIC Website:http://cancecily r.slick.ac.uk/cosmi c 2. Ramona STOUT et al. dbSNP: the NCBI database of genetic variation. Nucleic Acids Res. 2000Apr 25;29(1):308-11. Available from: http://www.ncbi.nlm. nih.gov/SNP/ 3. Zuri Guzman et al. Mutaional landscape and significance across 12 major cancer types. Nature, 2013; 502:333-339. 4. Rubi TJ et al. Cancer Genome Network. Genomic and Epigenomic Landscapes of Adult De Tu Acute Myeloid Leukemia. ??N Engl J Med 2013;368:2059-74. 5. Vianca A, Chris TL, Tiffanie CM, et al. CALR vs JAK2 vs MPL-mutated or triple-negative myelofibrosis: clinical, cytogenetic and molecular comparisons. Leukemia. 2014 Azeem;28(7):1472-7. doi: 10.1038/keiry.2014.3. [facility] ASR DISCLAIMER These tests were developed and their performance characteristics determined by the [facility]. They have not been cleared or approved by the U.S. Food and Drug Administration (FDA). The FDA has determined that such clearance or approval is not necessary. This test is used for clinical purposes. It should not be regarded as investigational or for research. The laboratory is certified under the Clinical Laboratory Improvement Amendments of 1988 (CLIA-88) as qualified to perform high complexity clinical laboratory testing. Information in this report is compiled from sources believed to be reliable. However, scientific literature, clinical trials, and therapies are constantly updated. This summary should be used only as a guide, and health care providers should employ sound clinical judgment in interpreting this information for individual patient care. These results do not rule out other gene mutations not included in the Ion AmpliSeq Myeloid Custom Panel v3. False positive or negative results may occur for reasons that include blood transfusions, a somatic mutation or single nucleotide polymorphism (SNP) at or near the primer binding sites or involvement of a target gene in a chromosome translocation. Moreover, negative results do not preclude the presence of mutations below detection limits of the assay. [facility] SIGNATURE . [facility] 06/05/2024 3:49 AM EST us Unknown Provider [facility] LABORATORY Final Resu lt Performing Organization Address [facility] Co de Phone Number [facility] [employer] [address] [place] [address] * IMMUNOGLOBULINS PANEL (IGG, IGA, IGM) (06/05/2024 3:49 AM EST) IgA 164 70 - 320 mg/dL [facility] IgG 1474 600 - 1540 mg/dL [facility] IgM 176 50 - 300 mg/dL [facility] 06/05/2024 3:49 AM EST Narrative [facility] - 06/05/2024 5:11 PM EST [facility] Received Date: us Unknown Provider [facility] LABORATORY Final Resu lt Performing Organization Address City/[facility]/ZIP Co de Phone Number [facility] [employer] [address] [place] [address] * FOLATE (06/05/2024 3:49 AM EST) Folate 15.5 4.8 - 24.2 ng/mL [facility] 06/05/2024 3:49 AM EST us Unknown Provider [facility] LABORATORY Final Resu lt Performing Organization Address City/[facility]/ZIP Co de Phone Number [facility] [employer] [address] [place] [address] * (ABNORMAL) VITAMIN B12 (06/05/2024 3:49 AM EST) Vitamin B12 (Cobalamins) 1,249(H) 232 - 1,245 pg/mL [facility] 06/05/2024 3:49 AM EST us Unknown Provider [facility] LABORATORY Final Resu lt [facility] [employer] [address] [place] [address] * (ABNORMAL) BASIC METABOLIC PANEL (06/05/2024 3:49 AM EST) Pathologist [facility] [place] Sodium 137 135 - 145 mmol/L [facility] Potassium 3.7 3.5 - 5.3 mmol/L [facility] Chloride 99 98 - 107 mmol/L [facility] Carbon dioxide 27 22 - 32 mmol/L [facility] Urea Nitrogen Blood (BUN) 7 7 - 23 mg/dL [facility] Creatinine 0.62 0.50 - 1.20 mg/dL [facility] Glucose 122(H) 65 - 99 mg/dL [facility] Calcium 9.0 8.6 - 10.5 mg/dL [facility] Anion gap 11 5 - 15 [facility] EGFR >90 >=60 mL/min/1.7 3m2 [facility] Comment: The estimated glomerular filtration rate (eGFR) is calculated using a new formula developed by the NKF-ASN task force to eliminate race-based correction factors. The new formula uses serum/plasma creatinine, age, and gender to determine eGFR. A value below 60mls/min might indicate kidney disease and will be flagged. For additional information, see Lia et al, Am J Kidney Dis. 2021;79(2):268-288, A Unifying Approach for GFR estimation: Recommendations of the NKF-ASN Task Force on Reassessing the Inclusion of Race in Diagnosing Kidney Disease . 06/05/2024 3:49 AM EST us Unknown Provider [facility] LABORATORY Final Resu lt [facility] [employer] [address] [place] [address] * MAGNESIUM (06/05/2024 3:49 AM EST) Pathologist [facility] [place] Magnesium 1.8 1.6 - 2.4 mg/dL [facility] 06/05/2024 3:49 AM EST us Unknown Provider [facility] LABORATORY Final Resu lt [facility] [employer] [address] [place] [address] * (ABNORMAL) CBC AUTO DIFFERENTIAL (06/05/2024 3:49 AM EST) [facility] WBC 9.5 3.8 - 10.8 10*3/uL [facility] RBC 3.30(L) 3.80 - 5.10 10*6/uL [facility] Hemoglobin 9.2(L) 11.7 - 15.5 g/dL [facility] Hematocrit 28.8(L) 35.0 - 45.0 % [facility] MCV 87.3 80.0 - 100.0 fL [facility] MCH 27.9 27.0 - 33.0 pg [facility] MCHC 31.9(L) 32.0 - 36.0 g/dL [facility] RDW 13.8 11.0 - 15.0 % [facility] PLT 830(H) 140 - 400 10*3/uL [facility] Platelet mean volume 8.6 7.5 - 12.5 fL [facility] Neutrophils % 52.7 % [facility] Granulocytes.betty ture/100 leukocytes 0.3 0.0 - 0.9 % [facility] Lymphocytes % 32.3 % [facility] Monocytes % 12.2 % [facility] Eosinophils % 1.8 % [facility] Basophils % 0.7 % [facility] Neutrophils # 4.98 1.50 - 7.80 10*3/uL [facility] Immature Granulocytes # 0.03 <=0.03 10*3/uL [facility] Lymphocytes # 3.10 0.85 - 3.90 10*3/uL [facility] Monocytes # 1.20(H) 0.20 - 0.95 10*3/uL [facility] Eosinophils # 0.20 0.02 - 0.50 10*3/uL [facility] Basophils # 0.10 0.00 - 0.20 10*3/uL [facility] Erythrocytes.nucl eated/100 leukocytes 0.0 /100 WBCs [facility] Erythrocytes.nucl eated <0.01 <0.01 10*3/uL [facility] 06/05/2024 3:49 AM EST us Unknown Provider [facility] LABORATORY Final Resu lt Performing Organization Address City/[facility]/ZIP Co de Phone Number [facility] [employer] [address] [place] [address] * LACTIC ACID, PLASMA (06/04/2024 10:41 PM EST) Lactate 1.1 0.5 - 1.9 mmol/L [facility] Comment: Sepsis Screening: Initial Lactate Level >2.0 mmol/L - Repeat Lactate Level within 3 hours. Initial Lactate Level >4.0 mmol/L - Repeat Lactate Level within 3 hours, Initiate Septic Shock Protocol. 06/04/2024 10:4 1 PM EST us Unknown Provider [facility] LABORATORY Final Resu lt Performing Organization Address City/[facility]/ZIP Co de Phone Number [facility] [employer] [address] [place] [address] * (ABNORMAL) CBC AUTO DIFFERENTIAL (06/04/2024 10:41 PM EST) WBC 10.7 3.8 - 10.8 10*3/uL [facility] RBC 3.19(L) 3.80 - 5.10 10*6/uL [facility] Hemoglobin 9.1(L) 11.7 - 15.5 g/dL [facility] Hematocrit 27.7(L) 35.0 - 45.0 % [facility] MCV 86.8 80.0 - 100.0 fL [facility] MCH 28.5 27.0 - 33.0 pg [facility] MCHC 32.9 32.0 - 36.0 g/dL [facility] RDW 13.7 11.0 - 15.0 % [facility] PLT 803(H) 140 - 400 10*3/uL [facility] Platelet mean volume 8.6 7.5 - 12.5 fL [facility] Neutrophils % 64.4 % [facility] Granulocytes.betty ture/100 leukocytes 0.5 0.0 - 0.9 % [facility] Lymphocytes % 21.3 % [facility] Monocytes % 11.4 % [facility] Eosinophils % 1.6 % [facility] Basophils % 0.8 % [facility] Neutrophils # 6.86 1.50 - 7.80 10*3/uL [facility] Immature Granulocytes # 0.05(H) <=0.03 10*3/uL [facility] Lymphocytes # 2.30 0.85 - 3.90 10*3/uL [facility] Monocytes # 1.20(H) 0.20 - 0.95 10*3/uL [facility] Eosinophils # 0.20 0.02 - 0.50 10*3/uL [facility] Basophils # 0.10 0.00 - 0.20 10*3/uL [facility] Erythrocytes.nucl eated/100 leukocytes 0.0 /100 WBCs [facility] Erythrocytes.nucl eated <0.01 <0.01 10*3/uL [facility] 06/04/2024 10:4 1 PM EST us Unknown Provider [facility] LABORATORY Final Resu lt [facility] [employer] [address] [place] [address] * TYPE AND SCREEN (06/04/2024 10:37 PM EST) ABO BLOOD TYPE O [facility] RH TYPE Positive [facility] EXPIRATION DATE/TIME 2024-06-07 23:59 [facility] ANTIBODY SCREEN Negative [facility] 06/04/2024 10:3 7 PM EST us Unknown Provider [facility] LABORATORY Edited Res ult - Final [facility] [employer] [address] [place] [address] * (ABNORMAL) COMPREHENSIVE METABOLIC PANEL (06/04/2024 10:37 PM EST) Sodium 136 135 - 145 mmol/L [facility] Potassium 4.0 3.5 - 5.3 mmol/L [facility] Chloride 98 98 - 107 mmol/L [facility] Carbon dioxide 28 22 - 32 mmol/L [facility] Anion gap 10 5 - 15 [facility] Glucose 115(H) 65 - 99 mg/dL [facility] Creatinine 0.64 0.50 - 1.20 mg/dL [facility] Calcium 9.1 8.6 - 10.5 mg/dL [facility] Protein Total (Serum) 7.1 6.0 - 8.0 g/dL [facility] Albumin 3.2(L) 3.5 - 5.2 g/dL [facility] Bilirubin Total 0.3 0.2 - 1.2 mg/dL [facility] Alkaline phosphatase 132(H) 35 - 129 U/L [facility] AST (SGOT) 19 10 - 40 U/L [facility] ALT (SGPT) 9(L) 10 - 40 U/L [facility] Urea Nitrogen Blood (BUN) 8 7 - 23 mg/dL [facility] EGFR >90 >=60 mL/min/1.7 3m2 [facility] Comment: The estimated glomerular filtration rate (eGFR) is calculated using a new formula developed by the NKF-ASN task force to eliminate race-based correction factors. The new formula uses serum/plasma creatinine, age, and gender to determine eGFR. A value below 60mls/min might indicate kidney disease and will be flagged. For additional information, see Lia et al, Am J Kidney Dis. 2021;79(2):268-288, A Unifying Approach for GFR estimation: Recommendations of the NKF-ASN Task Force on Reassessing the Inclusion of Race in Diagnosing Kidney Disease . GLOBULIN, TOTAL 3.9 2.1 - 4.2 g/dL [facility] A/G RATIO 0.8(L) 1.5 - 3.0 [facility] 06/04/2024 10:3 7 PM EST us Unknown Provider [facility] LABORATORY Final Resu lt Performing Organization Address City/[facility]/ZIP Co de Phone Number [facility] [employer] [address] [place] [address] * FACTOR 8 RISTOCETIN COFACTOR (06/04/2024 11:04 AM EST) von Willebrand factor.ristocet in cofactor activity actual/Normal (Platelet Poor Plasma) 68 42 - 200 % normal [facility] 06/04/2024 11:0 4 AM EST Narrative [facility] - 06/07/2024 3:08 PM EST [facility] Received Date:[id number] us Unknown Provider [facility] LABORATORY Final Resu lt Performing Organization Address [facility]/ZIP Co de Phone Number [facility] [employer] [address] [place] [phone] * VON WILLEBRAND FACTOR ANTIGEN (06/04/2024 11:04 AM EST) von Willebrand factor Ag actual/Normal (Platelet Poor Plasma) 111 50 - 217 % [facility] 06/04/2024 11:0 4 AM EST Narrative [facility] - 06/06/2024 1:04 PM EST [facility] Received Date:[id number] us Unknown Provider [facility] LABORATORY Final Resu lt Performing Organization Address City/[facility]/ZIP Co de Phone Number [facility] [employer] [address] [place] [address] * (ABNORMAL) MANUAL DIFFERENTIAL (06/04/2024 9:57 AM EST) Neutrophils.seg mented/100 leukocytes 67 % [facility] Band Neutrophils % 1 0 - 7 % [facility] Lymphocytes % 18 % [facility] Monocytes % 9 % [facility] Eosinophils % 0 % [facility] Basophils % 1 % [facility] Atypical Lymphocytes % 4 0 - 6 % [facility] Neutrophils 6.94 1.50 - 7.80 10*3/uL [facility] BANDS #, MANUAL 0.10 10*3/uL [facility] TOTAL LYMPH #, MANUAL 2.24 0.85 - 3.90 10*3/uL [facility] Monocytes 0.92 0.20 - 0.95 10*3/uL [facility] Eosinophils 0.00(L) 0.02 - 0.50 10*3/uL [facility] Basophils 0.10 0.00 - 0.20 10*3/uL [facility] REACTIVE LYMPHOCYTES # 0.41 10*3/uL [facility] Platelet morphology finding Increased( A) Adequate [facility] Erythrocyte morphology finding Normal Normal, No clinically significant RBC morphology present (IC [facility] Cells counted.total 114 [facility] 06/04/2024 9:57 AM EST us Unknown Provider [facility] LABORATORY Final Resu lt [facility] [employer] [address] [place] [address] * (ABNORMAL) CBC AUTO DIFFERENTIAL (06/04/2024 9:57 AM EST) WBC 10.2 3.8 - 10.8 10*3/uL [facility] RBC 3.48(L) 3.80 - 5.10 10*6/uL [facility] Hemoglobin 9.7(L) 11.7 - 15.5 g/dL [facility] Hematocrit 30.7(L) 35.0 - 45.0 % [facility] MCV 88.2 80.0 - 100.0 fL [facility] MCH 27.9 27.0 - 33.0 pg [facility] MCHC 31.6(L) 32.0 - 36.0 g/dL [facility] RDW 14.1 11.0 - 15.0 % [facility] PLT 813(H) 140 - 400 10*3/uL [facility] Platelet mean volume 8.6 7.5 - 12.5 fL [facility] Erythrocytes.nu cleated/100 leukocytes 0.0 /100 WBCs [facility] Erythrocytes.nu cleated <0.01 <0.01 10*3/uL [facility] 06/04/2024 9:57 AM EST us Unknown Provider [facility] LABORATORY Final Resu lt [facility] [employer] [address] [place] [address] * PARANEOPLASTIC ANTIBODY EVALUATION W/REFLEX TO TITER AND LINE BLOT, BASIC (06/04/2024 3:44 AM EST) Paraneoplastic Ab SEE NOTE [facility] Comment: Staining of HEp2 cells suggests nuclear non-neuronal specific antibodies are present. ?? No fluorescence observed on neuronal tissue. Neuronal nuclear type 1 Ab NEGATIVE NEGATIVE [facility] Neuronal nuclear type 2 Ab NEGATIVE NEGATIVE [facility] Neuronal nuclear type 3 Ab NEGATIVE NEGATIVE [facility] PCA1 (YO) AB, IFA NEGATIVE NEGATIVE [facility] PCA2 AB, IFA NEGATIVE NEGATIVE [facility] DANDY OPERATOR TR (DNER) AB, IFA NEGATIVE NEGATIVE [facility] AGNA/SOX1 AB, IFA NEGATIVE NEGATIVE [facility] Amphiphysin Ab NEGATIVE NEGATIVE [facility] CRMP5/CV2 AB, IFA NEGATIVE NEGATIVE [facility] Comment: The absence of detectable anti-neuronal autoantibodies in this test does not exclude an idiopathic or paraneoplastic autoimmune neurological disorder. Additional testing, including cell-based assays for antibodies to surface antigens, may be indicated. Testing using both CSF and serum increases sensitivity for detection. For additional information, please refer to https://www.[employer].Adzilla/ynz248 (This link is being provided for informational/educational purposes only.) This test was developed and its analytical performance characteristics have been determined by [employer]. It has not been cleared or approved by FDA. This assay has been validated pursuant to the CLIA regulations and is used for clinical purposes. Striated Muscle AB NEGATIVE NEGATIVE [facility] Comment: This test was developed and its analytical performance characteristics have been determined by [employer]. It has not been cleared or approved by FDA. This assay has been validated pursuant to the CLIA regulations and is used for clinical purposes. Voltage-Gated Calcium Channel Ab <30 <30 pmol/L [facility] Voltage-gated potassium channel Ab <80 <80 pmol/L [facility] Comment: This test was developed and its analytical performance characteristics have been determined by [email or web address]. It has not been cleared or approved by FDA. This assay has been validated pursuant to the CLIA regulations and is used for clinical purposes. Acetylcholine receptor ganglionic neuronal Ab <55 <55 pmol/L [facility] Comment: Reference Ranges for Acetylcholine Receptor Ganglionic Antibody: Negative: ?? <55 pmol/L Borderline: 55-160 pmol/L Positive: ?? >160 pmol/L This test was developed and its analytical performance characteristics have been determined by [employer]. It has not been cleared or approved by FDA. This assay has been validated pursuant to the CLIA regulations and is used for clinical purposes. Voltage-gated calcium channel N type binding Ab <54 <54 pmol/L [facility] Comment: This test was developed and its analytical performance characteristics have been determined by [employer]. It has not been cleared or approved by FDA. This assay has been validated pursuant to the CLIA regulations and is used for clinical purposes. Acetylcholine Receptor Binding AB <0.30 nmol/L [facility] Comment: Reference Ranges for Acetylcholine Receptor ??Binding Antibody: Negative: < or =0.30 nmol/L Equivocal: ??0.31-0.49 nmol/L Positive: > or =0.50 nmol/L 06/04/2024 3:44 AM EST Narrative [facility] - 06/14/2024 3:40 AM EST [facility] Received Date: us Unknown Provider [facility] LABORATORY Final Resu lt [facility] [employer] [address] [place] [phone] * AMADOU SCREEN, IFA, W/REFLEX TO TITER & PATTERN (06/04/2024 3:44 AM EST) AMADOU IFA NEGATIVE NEGATIVE [facility] Comment: AMADOU IFA is a first line screen for detecting the presence of up to approximately 150 autoantibodies in various autoimmune diseases. A negative AMADOU IFA result suggests an AMADOU-associated autoimmune disease is not present at this time, but is not definitive. If there is high clinical suspicion for Sjogren's syndrome, testing for anti-SS-A/Ro antibody should be considered. Anti-Lovely-1 antibody should be considered for clinically suspected inflammatory myopathies. AC-0: Negative International Consensus on AMADOU Patterns (https://doi.org/10.1515/fmfe-3924-1155) For additional information, please refer to http://[employer]oud[employer]/faq/CCI087 (This link is being provided for informational/ educational purposes only.) ?? 06/04/2024 3:44 AM EST Narrative [facility] - 06/08/2024 9:35 AM EST [facility] Received Date:[id number] us Unknown Provider [facility] LABORATORY Final Resu lt Performing Organization Address City/[facility]/ZIP Co de Phone Number [facility] [employer] [address] [place] [phone] * ALDOLASE (06/04/2024 3:44 AM EST) Aldolase 4.7 <=8.1 U/L [facility] 06/04/2024 3:44 AM EST Narrative [facility] - 06/08/2024 2:58 AM EST [facility] Received Date:[id number] us Unknown Provider [facility] LABORATORY Final Resu lt Performing Organization Address City/[facility]/ZIP Co de Phone Number [facility] [employer] [address] [place] [address] * (ABNORMAL) VITAMIN D 1,25 DIHYDROXY (06/04/2024 3:44 AM EST) 1,25-Dihydroxyvitami n D 17(L) 18 - 72 pg/mL [facility] Vitamin D3,1, 25(OH)2 17 pg/mL [facility] Vitamin D2, 1,25 (OH)2 <8 pg/mL [facility] Comment: Vitamin D3, 1,25(OH)2 indicates both endogenous production and supplementation. Vitamin D2, 1,25(OH)2 is an indicator of exogenous sources, such as diet or supplementation. ??Interpretation and therapy are based on measurement of Vitamin D,1,25(OH)2, Total. This test was developed and its analytical performance characteristics have been determined by [facility], [place], [place]. It has not been cleared or approved by the FDA. This assay has been validated pursuant to the CLIA regulations and is used for clinical purposes. 06/04/2024 3:44 AM EST Narrative [facility] - 06/07/2024 5:16 PM EST [facility] Received Date: us Unknown Provider [facility] LABORATORY Final Resu lt Performing Organization Address [facility] de Phone Number [facility] [employer] [address] [place] [address] * HOT DIP GALVANIZER ANTIBODY (06/04/2024 3:44 AM EST) Ribonucleoprotein extractable nuclear Ab <1.0 NEG <1.0 NEG AI [facility] 06/04/2024 3:44 AM EST Narrative [facility] - 06/07/2024 7:07 AM EST [facility] Received Date:[id number] us Unknown Provider [facility] LABORATORY Final Resu lt Performing Organization Address [facility] de Phone Number [facility] [employer] [address] [place] [address] * DNA ANTIBODY, DOUBLE-STRANDED (06/04/2024 3:44 AM EST) Dna (DS) Antibody <1 IU/mL [facility] Comment: ? IU/mL ? Interpretation ? < or = 4 ?Negative ? 5-9 ? Indeterminate ? > or = 10 ?? Positive 06/04/2024 3:44 AM EST Narrative [facility] - 06/07/2024 7:07 AM EST [facility] Received Date:[id number] us Unknown Provider [facility] LABORATORY Final Resu lt Performing Organization Address [facility] Co de Phone Number [facility] [employer] [address] [place] [address] * (ABNORMAL) COMPLEMENT C3 (06/04/2024 3:44 AM EST) C3 Complement 248(H) 83 - 193 mg/dL [facility] 06/04/2024 3:44 AM EST Narrative [facility] - 06/05/2024 2:15 PM EST [facility] Received Date:[id number] us Unknown Provider [facility] [facility] LABORATORY Final Resu lt Performing Organization Address [facility] Co de Phone Number [facility] [employer] [address] [place] [address] * COMPLEMENT C4 (06/04/2024 3:44 AM EST) C4 Complement 42 15 - 57 mg/dL [facility] 06/04/2024 3:44 AM EST Narrative [facility] [employer] - 06/05/2024 2:15 PM EST [facility] Received Date:[id number] us Unknown Provider [facility] LABORATORY Final Resu lt Performing Organization Address [facility] de Phone Number [employer] [address] [place] [address] * MORENO (SM) ANTIBODY (06/04/2024 3:44 AM EST) Moreno extractable nuclear Ab <1.0 NEG <1.0 NEG AI [facility] 06/04/2024 3:44 AM EST Narrative [facility] - 06/04/2024 2:23 PM EST [facility] Received Date:[id number] us Unknown Provider [facility] LABORATORY Final Resu lt Performing Organization Address City/[facility]/ZIP Co de Phone Number [facility] [employer] [address] [place] [address] * (ABNORMAL) HEPATIC FUNCTION PANEL (06/04/2024 3:44 AM EST) Protein Total (Serum) 8.2(H) 6.0 - 8.0 g/dL [facility] Albumin 3.7 3.5 - 5.2 g/dL [facility] GLOBULIN, TOTAL 4.5(H) 2.1 - 4.2 g/dL [facility] Bilirubin Total 0.4 0.2 - 1.2 mg/dL [facility] Bilirubin Direct 0.2 <=0.4 mg/dL [facility] Alkaline phosphatase 163(H) 35 - 129 U/L [facility] AST (SGOT) 22 10 - 40 U/L [facility] ALT (SGPT) 12 10 - 40 U/L [facility] BILIRUBIN, INDIRECT 0.20 <=0.70 mg/dL [facility] A/G RATIO 0.8(L) 1.5 - 3.0 [facility] 06/04/2024 3:44 AM EST us Unknown Provider [facility] LABORATORY Final Resu lt Performing Organization Address [facility]/ZIP Co de Phone Number [employer] [address] [place] [address] * (ABNORMAL) IRON SATURATION (06/04/2024 3:44 AM EST) Iron saturation 11(L) 20 - 50 % [facility] Iron 26(L) 30 - 160 ug/dL [facility] Transferrin 192(L) 200 - 360 mg/dL [facility] TOTAL IRON BINDING CAPACITY 240(L) 255 - 450 ug/dL [facility] 06/04/2024 3:44 AM EST us Unknown Provider [facility] LABORATORY Final Resu lt [employer] [address] [place] [address] [place] [address] * (ABNORMAL) FERRITIN (06/04/2024 3:44 AM EST) Ferritin 451.0(H) 11.0 - 306.0 ng/mL [facility] 06/04/2024 3:44 AM EST us Unknown Provider [facility] LABORATORY Final Resu lt Performing Organization Address City/[facility]/ZIP Co de Phone Number [facility] [employer] [address] [place] [address] * (ABNORMAL) MANUAL DIFFERENTIAL (06/04/2024 3:44 AM EST) Neutrophils.seg mented/100 leukocytes 49 % [facility] Lymphocytes % 40 % [facility] Monocytes % 9 % [facility] Eosinophils % 0 % [facility] Basophils % 1 % [facility] Atypical Lymphocytes % 1 0 - 6 % [facility] Neutrophils 5.68 1.50 - 7.80 10*3/uL [facility] TOTAL LYMPH #, MANUAL 4.76(H) 0.85 - 3.90 10*3/uL [facility] Monocytes 1.04(H) 0.20 - 0.95 10*3/uL [facility] Eosinophils 0.00(L) 0.02 - 0.50 10*3/uL [facility] Basophils 0.12 0.00 - 0.20 10*3/uL [facility] REACTIVE LYMPHOCYTES # 0.12 10*3/uL [facility] Platelet morphology finding Increased( A) Adequate [facility] Erythrocyte morphology finding Normal Normal, No clinically significant RBC morphology present (IC [facility] Cells counted.total 114 [facility] 06/04/2024 3:44 AM EST us Unknown Provider [facility] LABORATORY Final Resu lt Performing Organization Address City/[facility]/ZIP Co de Phone Number [facility] [employer] [address] [place] [address] * (ABNORMAL) CBC AUTO DIFFERENTIAL (06/04/2024 3:44 AM EST) WBC 11.6(H) 3.8 - 10.8 10*3/uL [facility] RBC 3.81 3.80 - 5.10 10*6/uL [facility] Hemoglobin 10.3(L) 11.7 - 15.5 g/dL [facility] Hematocrit 32.7(L) 35.0 - 45.0 % [facility] MCV 85.8 80.0 - 100.0 fL [facility] MCH 27.0 27.0 - 33.0 pg [facility] MCHC 31.5(L) 32.0 - 36.0 g/dL [facility] RDW 14.0 11.0 - 15.0 % [facility] PLT 1,166(HH) 140 - 400 10*3/uL [facility] Platelet mean volume 8.5 7.5 - 12.5 fL [facility] Erythrocytes.nu cleated/100 leukocytes 0.0 /100 WBCs [facility] Erythrocytes.nu cleated <0.01 <0.01 10*3/uL [facility] 06/04/2024 3:44 AM EST us Unknown Provider [facility] LABORATORY Final Resu lt [facility] [employer] [address] [place] [address] * (ABNORMAL) BASIC METABOLIC PANEL (06/04/2024 3:44 AM EST) Sodium 138 135 - 145 mmol/L [facility] Potassium 4.0 3.5 - 5.3 mmol/L [facility] Chloride 99 98 - 107 mmol/L [facility] Carbon dioxide 26 22 - 32 mmol/L [facility] Urea Nitrogen Blood (BUN) 10 7 - 23 mg/dL [facility] Creatinine 0.71 0.50 - 1.20 mg/dL [facility] Glucose 186(H) 65 - 99 mg/dL [facility] Calcium 9.5 8.6 - 10.5 mg/dL [facility] Anion gap 13 5 - 15 [facility] EGFR >90 >=60 mL/min/1.7 3m2 [facility] Comment: The estimated glomerular filtration rate (eGFR) [...] of Race in Diagnosing Kidney Disease . 06/04/2024 3:44 AM EST us Unknown Provider [facility] LABORATORY Final Resu lt Performing Organization Address City/[facility]/ZIP Co de Phone Number [facility] [employer] [address] [place] [address] * MAGNESIUM (06/04/2024 3:44 AM EST) Magnesium 2.0 1.6 - 2.4 mg/dL [facility] 06/04/2024 3:44 AM EST us Unknown Provider [facility] LABORATORY Final Resu lt Performing Organization Address City/[facility]/ZIP Co de Phone Number [facility] [employer] [address] [place] [address] * RHEUMATOID FACTOR (06/03/2024 6:19 PM EST) Rheumatoid Factor (Quant) <10 <14 IU/mL [facility] 06/03/2024 6:19 PM EST Narrative [facility] - 06/04/2024 5:10 PM EST [facility] Received Date:[id number] us Unknown Provider [facility] LABORATORY Final Resu lt Performing Organization Address City/[facility]/ZIP Co de Phone Number [facility] [employer] [address] [place] [address] * LACTATE DEHYDROGENASE (06/03/2024 6:19 PM EST) Lactate dehydrogenase 188 135 - 225 U/L [facility] 06/03/2024 6:19 PM EST us Unknown Provider [facility] LABORATORY Final Resu lt Performing Organization Address City/[facility]/ZIP Co de Phone Number [facility] [employer] [address] [place] [address] * (ABNORMAL) SEDIMENTATION RATE (06/03/2024 6:19 PM EST) ESR 84(H) <30 mm/Hr mm/Hr [facility] 06/03/2024 6:19 PM EST us Unknown Provider [facility] LABORATORY Final Resu lt Performing Organization Address [facility]/ZIP Co de Phone Number [facility] [employer] [address] [place] [address] * (ABNORMAL) C-REACTIVE PROTEIN (06/03/2024 11:01 AM EST) C reactive protein 59.2(H) <=9.9 mg/L [facility] [employer] 06/03/2024 11:0 1 AM EST us Unknown Provider [facility] LABORATORY Final Resu lt Performing Organization Address [facility] Co de Phone Number [facility] [employer] [address] [place] [phone] * (ABNORMAL) BASIC METABOLIC PANEL (06/03/2024 11:01 AM EST) Sodium 137 135 - 145 mmol/L [facility] Potassium 4.3 3.5 - 5.3 mmol/L [facility] Chloride 98 98 - 107 mmol/L [facility] Carbon dioxide 26 22 - 32 mmol/L [facility] Urea Nitrogen Blood (BUN) 11 7 - 23 mg/dL [facility] Creatinine 0.73 0.50 - 1.20 mg/dL [facility] Glucose 118(H) 65 - 99 mg/dL [facility] Calcium 9.5 8.6 - 10.5 mg/dL [facility] Anion gap 13 5 - 15 [facility] EGFR >90 >=60 mL/min/1.7 3m2 [facility] Comment: The estimated glomerular filtration rate (eGFR) is calculated using a new formula developed by the NKF-ASN task force to eliminate race-based correction factors. The new formula uses serum/plasma creatinine, age, and gender to determine eGFR. A value below 60mls/min might indicate kidney disease and will be flagged. For additional information, see Lia et al, Am J Kidney Dis. 2021;79(2):268-288, A Unifying Approach for GFR estimation: Recommendations of the NKF-ASN Task Force on Reassessing the Inclusion of Race in Diagnosing Kidney Disease . 06/03/2024 11:0 1 AM EST us Unknown Provider [facility] LABORATORY Final Resu lt [facility] [employer] [address] [place] [address] * MAGNESIUM (06/03/2024 11:01 AM EST) Magnesium 2.0 1.6 - 2.4 mg/dL [facility] 06/03/2024 11:0 1 AM EST us Unknown Provider [facility] LABORATORY Final Resu lt [facility] [employer] [address] [place] [address] * (ABNORMAL) CBC AUTO DIFFERENTIAL (06/03/2024 11:01 AM EST) WBC 11.3(H) 3.8 - 10.8 10*3/uL [facility] RBC 3.59(L) 3.80 - 5.10 10*6/uL [facility] Hemoglobin 10.1(L) 11.7 - 15.5 g/dL [facility] Hematocrit 31.2(L) 35.0 - 45.0 % [facility] MCV 86.9 80.0 - 100.0 fL [facility] MCH 28.1 27.0 - 33.0 pg [facility] MCHC 32.4 32.0 - 36.0 g/dL [facility] RDW 14.0 11.0 - 15.0 % [facility] PLT 805(H) 140 - 400 10*3/uL [facility] Platelet mean volume 8.5 7.5 - 12.5 fL [facility] Neutrophils % 61.3 % [facility] Granulocytes.betty ture/100 leukocytes 0.4 0.0 - 0.9 % [facility] Lymphocytes % 26.0 % [facility] Monocytes % 10.6 % [facility] Eosinophils % 1.1 % [facility] Basophils % 0.6 % [facility] Neutrophils # 6.91 1.50 - 7.80 10*3/uL [facility] Immature Granulocytes # 0.05(H) <=0.03 10*3/uL [facility] Lymphocytes # 2.90 0.85 - 3.90 10*3/uL [facility] Monocytes # 1.20(H) 0.20 - 0.95 10*3/uL [facility] Eosinophils # 0.10 0.02 - 0.50 10*3/uL [facility] Basophils # 0.10 0.00 - 0.20 10*3/uL [facility] Erythrocytes.nucl eated/100 leukocytes 0.0 /100 WBCs [facility] Erythrocytes.nucl eated <0.01 <0.01 10*3/uL [facility] 06/03/2024 11:0 1 AM EST us Unknown Provider [facility] LABORATORY Final Resu lt [facility] [employer] [address] [address] * BLOOD CULTURE (06/02/2024 4:42 PM EST) Bacteria culture No growth after 5 days [facility] 06/02/2024 4:42 PM EST Narrative [facility] - 06/07/2024 8:51 PM EST [facility] Received Date: MICRO NUMBER: [id number] SPECIMEN QUALITY: Adequate SOURCE: BLOOD VENOUS, PERIPHERAL STATUS: FINAL COMMENT: Aerobic and anaerobic bottle received. us Unknown Provider [facility] LABORATORY Final Resu lt Performing Organization Address [facility] Co de Phone Number [employer] [address] [place] [address] * BLOOD CULTURE (06/02/2024 4:42 PM EST) Bacteria culture No growth after 5 days [facility] 06/02/2024 4:42 PM EST Narrative [facility] - 06/07/2024 8:51 PM EST From a different site than #1. [facility] Received Date: MICRO NUMBER: [id number] SPECIMEN QUALITY: Adequate SOURCE: BLOOD VENOUS, PERIPHERAL STATUS: FINAL COMMENT: Aerobic and anaerobic bottle received. us Unknown Provider [facility] LABORATORY Final Resu lt Performing Organization Address [facility] de Phone Number [employer] [address] [place] [address] * (ABNORMAL) CK (06/02/2024 12:03 PM EST) CPK 35(L) 38 - 206 U/L [facility] 06/02/2024 12:0 3 PM EST us Unknown Provider [facility] LABORATORY Final Resu lt Performing Organization Address [facility] de Phone Number [employer] [address] [place] [address] * TSH REFLEX FREE T4 (06/02/2024 8:13 AM EST) TSH 2.910 0.280 - 3.890 uIU/mL [facility] Comment: Females: 1st trimester ? 0.150-4.000 ?IU/mL 2nd trimester ?? 0.310-4.170 ???IU/mL 3rd trimester ?0.380-4.150 ???IU/mL 06/02/2024 8:13 AM EST us Unknown Provider [facility] LABORATORY Final Resu lt Performing Organization Address City/[facility]/ZIP Co de Phone Number [employer] [facility] [address] [place] [address] * (ABNORMAL) COMPREHENSIVE METABOLIC PANEL (06/02/2024 8:13 AM EST) Sodium 139 135 - 145 mmol/L [facility] Potassium 4.2 3.5 - 5.3 mmol/L [facility] Chloride 104 98 - 107 mmol/L [facility] Carbon dioxide 26 22 - 32 mmol/L [facility] Anion gap 9 5 - 15 [facility] Glucose 114(H) 65 - 99 mg/dL [facility] Creatinine 0.77 0.50 - 1.20 mg/dL [facility] Calcium 9.0 8.6 - 10.5 mg/dL [facility] Protein Total (Serum) 7.3 6.0 - 8.0 g/dL [facility] Albumin 3.3(L) 3.5 - 5.2 g/dL [facility] Bilirubin Total <0.2(L) 0.2 - 1.2 mg/dL [facility] Alkaline phosphatase 159(H) 35 - 129 U/L [facility] AST (SGOT) 19 10 - 40 U/L [facility] ALT (SGPT) 12 10 - 40 U/L [facility] Urea Nitrogen Blood (BUN) 10 7 - 23 mg/dL [facility] EGFR 88 >=60 mL/min/1.7 3m2 [facility] Comment: The estimated glomerular filtration rate (eGFR) is calculated using a new formula developed by the NKF-ASN task force to eliminate race-based correction factors. The new formula uses serum/plasma creatinine, age, and gender to determine eGFR. A value below 60mls/min might indicate kidney disease and will be flagged. For additional information, see Fitzgerald et al, Am J Kidney Dis. 2021;79(2):268-288, A Unifying Approach for GFR estimation: Recommendations of the NKF-ASN Task Force on Reassessing the Inclusion of Race in Diagnosing Kidney Disease . GLOBULIN, TOTAL 4.0 2.1 - 4.2 g/dL [facility] A/G RATIO 0.8(L) 1.5 - 3.0 [facility] 06/02/2024 8:13 AM EST us Unknown Provider [facility] LABORATORY Final Resu lt Performing Organization Address [facility]/ZIP Co de Phone Number [employer] [address] [place] [phone] * (ABNORMAL) CBC (06/02/2024 8:13 AM EST) WBC 11.9(H) 3.8 - 10.8 10*3/uL [facility] RBC 3.57(L) 3.80 - 5.10 10*6/uL [facility] Hemoglobin 9.8(L) 11.7 - 15.5 g/dL [facility] Hematocrit 31.3(L) 35.0 - 45.0 % [facility] MCV 87.7 80.0 - 100.0 fL [facility] MCH 27.5 27.0 - 33.0 pg [facility] MCHC 31.3(L) 32.0 - 36.0 g/dL [facility] RDW 14.4 11.0 - 15.0 % [facility] PLT 739(H) 140 - 400 10*3/uL [facility] Platelet mean volume 8.4 7.5 - 12.5 fL [facility] 06/02/2024 8:13 AM EST us Unknown Provider [facility] LABORATORY Final Resu lt Performing Organization Address [facility] Co de Phone Number [employer] [address] [place] [phone] documented in this encounter Visit Diagnoses Not on filedocumented in this encounter Care Teams Art Model Relationship Specialty Start Date End Date Alfreda Costa DO [address] [place] [address] PCP - General Internal Medicine 09/03/19 documented as of this encounter
--- OUTSIDE RECORDS SUMMARY | 2024-06-25 19:19 | XMS_ITS | Encounter Summary ---
Demographics Address [address] [place] [address] Mobile Phone Home Phone Email Address Preferred Language Zimbabwean Marital Status Jewish Affiliation Unknown Race White Ethnic Group Unknown Author Organization [facility] Address [address] [place] [address] Support Name Relationship Address Phone [facility] Emergency Contact [address] [place] [address] Shana Danielle Emergency Contact [address] [place] [address] Care Team Providers Care Financial Cost Analyst Name Role Phone Alfreda Costa Primary Care Provider [phone] Leela Nieto [employer] Unavailable Unavailable Reason for Visit * Reason Comments E-prescribing Refill Request Encounter Details Date Type Department Care Team ([facility] st Contact Info) Description 10/01/2019 Refill [facility] Neurology [address] [facility] [address] [place] [address] Hollie Donato MD [address] [place] [address] E-prescribing Refill Request Social History Tobacco Use Types Packs/Day Years [...] have Coronavirus / COVID-19? No / Unsure 09/21/2019 1:41 PM EDT documented as of this encounter Miscellaneous Notes * Telephone Encounter - Naheed Hardwick RN - 10/02/2019 12:25 PM EDT Called to pt to see if she needs this refilled Chart review, pt states med made her feel worse Pt states she does not need this refilled documented in this encounter Plan of Treatment Upcoming Encounters Date Type Department Care Team (Late st Contact Info) Description 06/27/2024 11:00 AM EST Office Visit [facility] [address] [place] [address] Deanne Ibarra PA [address] [place] [address] HFU 08/16/2024 10:25 AM EDT CPE - Comprehensive Physical Exam [facility] [address] [place] [address] Alfreda Costa DO [address] [place] [address] [facility] 02/27/2025 1:15 PM EST Radiology [facility] [address] [place] [address] documented as of this encounter Visit Diagnoses Not on filedocumented in this encounter Additional Health Concerns Infection Onset Date Last Indicated Resolved Time COVID-19 Rule-Out 01/05/2021 01/05/2021 01/06/2021 11:16 AM EDT documented as of this encounter Care Teams Financial Cost Analyst Relationship Specialty Start Date End Date Alfreda Costa DO [address] [place] [address] PCP - General Internal Medicine 09/03/19 Leela Nieto NP [address] [place] [address] PCP - Backup PCP Internal Medicine 09/03/19 11/17/22 documented as of this encounter
--- OUTSIDE RECORDS SUMMARY | 2024-06-25 19:19 | XMS_ITS | Encounter Summary ---
Demographics Address [address] [place] [address] Mobile Phone Home Phone Email Address [email or web address] Preferred Language Libyan Marital Status Pentecostalism Affiliation Unknown Race White Ethnic Group Unknown Author Organization [facility] Address [address] [place] [address] Support Name Relationship Address Phone [place] Haas Emergency Contact [address] [place] [address] Shana Danielle Emergency Contact [address] [place] [address] Care Team Providers Care Chief Mate Name Role Phone IgorAlfreda Primary Care Provider [phone] Encounter Details Date Type Department Care Team (Late st Contact Info) Description 06/23/2024 Consult (Initial) [facility] [address] [place] [address] [facility], Unknown Provider Social History Tobacco Use [...] as of this encounter Consult Notes * [facility], Unknown Provider - 06/23/2024 11:37 PM EST Images from the original note were not included. Progress Notes by Herman Sutherland MD at 06/23/2024 11:06 PM Author: Herman Sutherland MD Service: Infectious Disease Author Type: Fellow Filed: 06/23/2024 11:37 PM Encounter Date: 06/20/2024 Creation Time: 06/23/2024 11:06 PM Status: Signed Hogshead Packer: Herman Sutherland MD (Fellow) Infectious Diseases Progress Note Reason for Follow-up: Groin abscess Subjective: Feels Better, discharged from rehab. Option care providing with home IV. Interval events: On IV ceftriaxone/Flagyl Review of systems: All other components of the review of systems are negative, except those described in the history of present illness. Medications: Medication Sig Start Date End Date Taking? Authorizing Provider 0.9% NaCl 0.9% piggyback 100 mL with cefTRIAXone 2 gram recon soln 2 g Infuse 2 g intravenously every 24 hours for 24 days. 06/09/24 07/03/24 Yes Luann Cuellar MD apixaban (ELIQUIS) 2.5 mg tablet Take 5 mg by mouth every 12 hours. Yes Unknown Provider, atorvastatin (LIPITOR) 40 mg tablet TAKE ONE TABLET (40 MG TOTAL) BY MOUTH 1 (ONE) TIME EACH DAY FOR CHOLESTEROL 07/18/20 Yes Unknown Provider, bisacodyL (DULCOLAX) 10 mg suppository Insert 1 suppository (10 mg total) into the rectum daily as needed for constipation. 06/08/24 07/08/24 Yes Luann Cuellar MD clonazePAM (KlonoPIN) 0.5 mg tablet Take 0.5 mg by mouth 3 times a day. 09/05/20 Yes Unknown Provider, dextroamphetamine-amphetamine (ADDERALL) 30 mg tablet Take 1 tablet by mouth 2 times a day. 07/01/20 Yes Unknown Provider, docusate sodium (COLACE) 100 mg capsule Take 1 capsule (100 mg total) by mouth 2 times a day. 06/09/24 07/09/24 Yes Luann Cuellar MD DULoxetine DR (CYMBALTA) 60 mg capsule Take 120 mg by mouth daily. 07/31/20 Yes Unknown Provider, haloperidoL (HALDOL) 0.5 mg tablet Take 0.5 mg by mouth 2 times daily. 03/29/24 Yes Unknown Provider, lamoTRIgine (LaMICtal) 200 mg tablet Take 200 mg by mouth 2 times a day. 06/13/20 Yes Unknown ProviderMD metroNIDAZOLE (FLAGYL) 500 mg tablet Take 1 tablet (500 mg total) by mouth every 12 hours for 25 days. 06/08/24 07/03/24 Yes Luann Cuellar MD polyethylene glycol 3350 (MIRALAX) 17 gram packet Take 1 packet (17 g total) by mouth once a day. Mix powder in 4 to 8 oz of water, juice, coffee, or tea prior to administration. 06/09/24 Yes Luann Cuellar MD senna (SENOKOT) 8.6 mg tablet Take 2 tablets (17.2 mg total) by mouth nightly. 06/08/24 07/08/24 Yes Luann Cuellar MD traZODone (DESYREL) 150 mg tablet Take 150 mg by mouth nightly. Yes Unknown Provider, Physical Exam: Vitals: 06/20/24 0952 BP: 101/63 Pulse: 82 Resp: 18 Temp: 36.6 ??C (97.8 ??F) SpO2: 100% General appearance: no obvious distress, well nourished, PICC line site without any redness/erythema Abdomen: non-distended MSK: no obvious abnormality, no major joint effusion Extremities: no edema or swelling Skin: no obvious rashes or abnormal lesions Neuro: alert and oriented, no focal deficits Laboratory data: I have independently reviewed all recent lab results; including all microbiological data and culture results from previous years. Results from last 7 days Lab Units 06/18/24 0555 WBC 10*3/uL 7.2 HEMOGLOBIN g/dL 10.2* HEMATOCRIT % 32.7* PLATELETS 10*3/uL 439 SODIUM mmol/L 141 CARBON DIOXIDE mmol/L 32 BUN mg/dL 13 CREATININE mg/dL 0.70 TOTAL BILIRUBIN mg/dL 0.1* ALKALINE PHOSPHATASE U/L 123 ALT U/L 30 AST U/L 41* GLUCOSE mg/dL 93 Microbiology data: No results found for: CDIFFTOXAB Blood Cultures Lab Results Component Value Date BCRESULT No growth after 5 days 06/02/2024 BCRESULT No growth after 5 days 06/02/2024 Radiology: I have reviewed all imaging data available during this hospitalization independently. Impression: Dorothy Vázquez is a 63 y.o. female with history of major depressive disorder, memory loss, recent hospitalization at [facility] for strep intermedius associated pelvic abscess s/p drainage and 05/29 and a newly diagnosed DVT with pulmonary embolism for which she was started on anticoagulation. She was admitted at [facility] because of hematuria stop she has remained hemodynamically stable and afebrilethroughout her hospitalization with blood cultures on 06/02 remaining negative. She underwent an MRI of the Pelvis which revealed confluent bone marrow edema centered at the pubic symphysis is concerning for acute osteomyelitis. Small amount of fluid at the pubic symphysis is likely septic. Edema involving the pectineus and adductor muscles, in keeping with myositis with small intramuscular abscesses, the largest within the left adductor brevis muscle. Given the recent positive blood cultures forstrep intermedius, we opted against a biopsy and decided to treat her for atleast 6 weeks from negative blood cultures from 05/22. The pulmonary nodular lesions in the left lower lobe are likely secondary to evolving pulmonary infarcts. # Acute osteomyelitis of the pubic symphasis # Strep intermedius bacteremia --gluteal abscess s/p drainage at [facility] on 05/[address] scan on 06/01 showing residual collection; MAXIMO negative for any vegetations at [facility] # DVT with pulmonary embolism with a cluster of nodular pulmonary lesions in the left lower zone likely secondary to evolving pulmonary infarcts # Pelvic Abscess/ Acute osteomyelitis/ myositis Recommendations: Continue IV Ceftriaxone 2gm once daily till 07/03 Please remove PICC line on 07/03 and switch to PO Cefadroxil 1gm twice daily afterwards till follow-up in ID clinic Continue PO flagyl until our next follow on 07/[address]-AP with contrast Follow-up in 3 weeks The plan of care was discussed with the patient, her and Dr Quarles. Herman Sutherland MD Fellow Infectious Diseases Dorothy Vázquez : 1960 CSN: [id number] documented in this encounter Plan of Treatment Upcoming Encounters Date Type Department Care Team (Late st Contact Info) Description 06/27/2024 11:00 AM EST Office Visit [facility] [address] [place] [address] Deanne Ibarra PA [address] [place] [address] [facility] 08/16/2024 10:25 AM EDT CPE - Comprehensive Physical Exam [facility] [address] [place] [address] Alfreda Costa DO [address] [place] [address] Physical - LETTER SENT TO [facility] 02/27/2025 1:15 PM EST Radiology [facility]. [facility] [address] [place] [address] documented as of this encounter Visit Diagnoses Not on filedocumented in this encounter Care Teams Chief Mate Relationship Specialty Start Date End Date Alfreda Costa DO [address] [place] [address] PCP - General Internal Medicine 09/03/19 documented as of this encounter
--- OUTSIDE RECORDS SUMMARY | 2024-06-25 19:19 | XMS_ITS | Encounter Summary ---
Demographics Address [address] [place] [address] Mobile Phone Home Phone Email Address Preferred Language Malawian Marital Status Sabianist Affiliation Unknown Race White Ethnic Group Unknown Author Organization [facility] Address [address] [place] [address] Support Name Relationship Address Phone [place] Haas Emergency Contact [address] [place] [address] Shana Danielle Emergency Contact [address] [place] [address] Care Team Providers Care Teacher Advisor Name Role Phone IgorAlfreda Primary Care Provider [phone] Encounter Details Date Type Department Care Team (Late st Contact Info) Description 06/24/2024 Consult (Initial) [facility] [address] [place] [address] Roslyn Quarles [address] [address] Social History Tobacco Use Types Packs/Day Years [...] as of this encounter Consult Notes * Roslyn Quarles - 06/24/2024 11:21 AM EST Progress Notes by Roslyn Quarles MD at 06/24/2024 11:21 AM Author: Roslyn Quarles MD Service: Infectious Disease Author Type: Physician Filed: 06/24/2024 11:21 AM Encounter Date: 06/20/2024 Creation Time: 06/24/2024 11:21 AM Status: Signed Telegraph Printer Mechanic: Roslyn Quarles MD (Physician) I saw and evaluated the patient. Case discussed with the resident/fellow and I agree with the findings and plan as documented in the resident's/fellow's note. documented in this encounter Plan of Treatment Upcoming Encounters Date Type Department Care Team (Late st Contact Info) Description 06/27/2024 11:00 AM EST Office Visit [facility] [address] [place] [address] Deanne Ibarra PA [address] [place] [address] [facility] 08/16/2024 10:25 AM EDT CPE - Comprehensive Physical Exam [facility] [address] [place] [address] Alfreda Costa DO [address] [place] [address] Physical - LETTER SENT TO [facility] 02/27/2025 1:15 PM EST Radiology [facility]. Mammography [address] [place] [phone] documented as of this encounter Visit Diagnoses Not on filedocumented in this encounter Care Teams Teacher Advisor Relationship Specialty Start Date End Date Alfreda Costa DO [address] [place] [address] PCP - General Internal Medicine 09/03/19 documented as of this encounter
--- OUTSIDE RECORDS SUMMARY | 2024-06-25 19:19 | XMS_ITS | Encounter Summary ---
Demographics Address [address] [place] [address] Mobile Phone Home Phone Email Address Preferred Language Dutch Marital Status Voodoo Affiliation Unknown Race White Ethnic Group Unknown Author Organization [facility] Address [address] [place] [address] Support Name Relationship Address Phone [place] Haas Emergency Contact [address] [place] [address] Shana Danielle Emergency Contact [address] [place] [address] Care Team Providers Care Boot Turner Name Role Phone CostaAlfreda Primary Care Provider [phone] Reason for Visit * Reason Comments Care Coordination Communication Encounter Details Date Type Department Care Team (Late st Contact Info) Description 06/13/2024 Telephone [facility] [address] [place] [phone] Rebekah Alejo [place] [address] [place] [address] Care Coordination Communication Social History Tobacco Use Types Packs/Day Years [...] encounter Miscellaneous Notes * Telephone Encounter - Rebekah Alejo MA - 06/13/2024 8:01 AM EST Attempted to contact patient/family for screening following recent Hospital/SNF Discharge. Patient's risk score is low. Recommended appointment time frame was not applicable. This is the first attempt to reach patient/family. Transition Coordinator was unable to contact patient/family to complete screening. Message was leftfor return call. Summary: pt was dc from [facility] on 06-08-24 for Hematuria and difficulty ambulating. Future Appointments Date Time Provider Department Center 06/20/2024 9:30 AM MD ALYX Walsh documented in this encounter Plan of Treatment Upcoming Encounters Date Type Department Care Team (Late st Contact Info) Description 06/27/2024 11:00 AM EST Office Visit [facility] [address] [place] [address] Deanne Ibarra PA [address] [place] [address] [facility] 08/16/2024 10:25 AM EDT CPE - Comprehensive Physical Exam [facility] [address] [place] [address] Alfreda Costa DO [address] [place] [address] Physical - LETTER SENT TO [facility] 02/27/2025 1:15 PM EST Radiology [facility] [address] [place] [phone] documented as of this encounter Visit Diagnoses Not on filedocumented in this encounter Care Teams Boot Turner Relationship Specialty Start Date End Date Alfreda Costa DO [address] [place] [address] PCP - General Internal Medicine 09/03/19 documented as of this encounter
--- OUTSIDE RECORDS SUMMARY | 2024-06-25 19:19 | XMS_ITS | Encounter Summary ---
Demographics Address [address] [place] [address] Mobile Phone Home Phone Email Address [email or web address] Preferred Language Bangladeshi Marital Status Roman Catholic Affiliation Unknown Race White Ethnic Group Unknown Author Organization [facility] Address [address] [place] [address] Support Name Relationship Address Phone [place] Haas Emergency Contact [address] [place] [address] Shana Danielle Emergency Contact [address] [facility] [place] [address] Care Team Providers Care Medical Certification Specialist Name Role Phone CostaAlfreda Primary Care Provider [phone] Encounter Details Date Type Department Care Team (Late Contact Info) Description 06/18/2024 Orders Only [facility] [address] [place] [address] [facility], Unknown Provider Social History Tobacco Use [...] Description 06/27/2024 11:00 AM EST Office Visit [facility] [address] [place] [phone] Deanne Ibarra PA [address] [place] [address] [facility] 08/16/2024 10:25 AM EDT CPE - Comprehensive Physical Exam [facility] [address] [place] [phone] Alfreda Costa DO [address] [place] [address] Physical - LETTER SENT TO [facility] 02/27/2025 1:15 PM EST Radiology [facility]. [facility] [address] [place] [phone] documented as of this encounter Procedures * Due to [facility] law, this organization might not be sharing negative HIV tests. Procedure Name Priority Date/Time Associated Diagnosis Comments CBC AUTO DIFFERENTIAL Routine 06/18/2024 5:55 AM EST COMPREHENSIVE METABOLIC PANEL Routine 06/18/2024 5:55 AM EST documented in this encounter Results * Due to [place] [employer] law, this organization might not be sharing negative HIV tests. * (ABNORMAL) COMPREHENSIVE METABOLIC PANEL (06/18/2024 5:55 AM EST) Sodium 141 136 - 145 mmol/L [facility] Potassium 4.5 3.5 - 5.1 mmol/L [facility] Chloride 101 98 - 109 mmol/L [facility] Carbon dioxide 32 22 - 32 mmol/L [facility] Anion gap 13 >=0 [facility] Glucose 93 60 - 99 mg/dL [facility] Creatinine 0.70 0.50 - 1.12 mg/dL [facility] Calcium 9.3 8.4 - 10.4 mg/dL [facility] Protein Total (Serum) 6.4(L) 6.6 - 8.7 g/dL [facility] Albumin 3.5 3.5 - 5.0 g/dL [facility] Bilirubin Total 0.1(L) 0.2 - 1.2 mg/dL [facility] Alkaline phosphatase 123 40 - 129 U/L [facility] AST (SGOT) 41(H) 0 - 33 U/L [facility] ALT (SGPT) 30 <=33 U/L [facility] Urea Nitrogen Blood (BUN) 13 8 - 23 mg/dL [facility] EGFR >90 >=60 mL/min/1.7 3m2 [facility] Comment: The estimated glomerular filtration [...] TOTAL 2.9 2.1 - 4.2 g/dL [facility] A/G RATIO 1.2(L) 1.5 - 3.0 [facility] 06/18/2024 5:55 AM EST Narrative [facility] - 06/18/2024 9:57 AM EST NUR3^300^A^0156^^BED^0156 NUR3\S\300\S\A\S\0156\S\S\BED\S\0156 us Unknown Provider [facility] LABORATORY Final Resu lt [facility] [employer] [address] [place] [address] * (ABNORMAL) CBC AUTO DIFFERENTIAL (06/18/2024 5:55 AM EST) WBC 7.2 4.8 - 10.8 10*3/uL [facility] RBC 3.67(L) 4.20 - 5.40 10*6/uL [facility] Hemoglobin 10.2(L) 11.7 - 15.5 g/dL [facility] Hematocrit 32.7(L) 35.7 - 45.8 % [facility] MCV 89.1 81.0 - 99.0 fL [facility] MCH 27.8 26.0 - 34.0 pg [facility] MCHC 31.2 31.0 - 36.0 g/dL [facility] RDW 15.2(H) 12.0 - 15.0 % [facility] RDW STANDARD DEVIATION 48.3(H) 36.4 - 46.3 fL [facility] PLT 439 140 - 440 10*3/uL [facility] Platelet mean volume 8.8(L) 9.4 - 12.3 fL [facility] Neutrophils % 42.0(L) 50.0 - 75.0 % [facility] Granulocytes.betty ture/100 leukocytes 0.8 0.0 - 0.9 % [facility] Lymphocytes % 41.4 20.0 - 44.0 % [facility] Monocytes % 9.8 0.0 - 14.0 % [facility] Eosinophils % 5.2(H) 0.0 - 5.0 % [facility] Basophils % 0.8 0.0 - 2.0 % [facility] Neutrophils # 3.03 1.80 - 7.70 10*3/uL [facility] Immature Granulocytes # 0.06(H) 0.00 - 0.03 10*3/uL [facility] Lymphocytes # 3.00 1.00 - 4.75 10*3/uL [facility] Monocytes # 0.70(H) 0.00 - 0.60 10*3/uL [facility] Eosinophils # 0.40 0.00 - 0.80 10*3/uL [facility] Basophils # 0.10 0.00 - 0.20 10*3/uL [facility] Erythrocytes.nucl eated/100 leukocytes 0.0 0 - 0 /100 WBCs [facility] Erythrocytes.nucl eated <0.01 0.00 - 0.13 10*3/uL [facility] 06/18/2024 5:55 AM EST Narrative [facility] - 06/18/2024 9:46 AM EST NUR3^300^A^0156^^BED^0156 us Unknown Provider [facility] LABORATORY Final Resu lt [facility] [address] [address] [place] [address] documented in this encounter Visit Diagnoses Not on filedocumented in this encounter Care Teams Medical Certification Specialist Relationship Specialty Start Date End Date Alfreda Costa DO [address] [place] [address] PCP - General Internal Medicine 09/03/19 documented as of this encounter
--- OUTSIDE RECORDS SUMMARY | 2024-06-25 19:19 | XMS_ITS | Encounter Summary ---
Demographics Address [address] [place] [address] Mobile Phone Home Phone Email Address Preferred Language Icelandic Marital Status Rastafari Affiliation Unknown Race White Ethnic Group Unknown Author Organization [facility] Address [address] [place] [address] Support Name Relationship Address Phone [place] Haas Emergency Contact [address] [place] [address] Shana Danielle Emergency Contact [address] [place] [address] Care Team Providers Care Freight Handler Name Role Phone Alfreda Costa Primary Care Provider [phone] Reason for Visit * Reason Comments Care Coordination Communication Discharg e CM Note Encounter Details Date Type Department Care Team (Late st Contact Info) Description 06/01/2024 Telephone Population Health [facility] [address] [place] [address] Kamini Tillman, RN [address] [place] [address] Care Coordination Communication (Discharge CM Note ) Social History Tobacco Use Types Packs/Day [...] encounter Miscellaneous Notes * Telephone Encounter - Layne Kamini, MJ - 06/01/2024 10:13 AM EST Summary: Dorothy Haas admitted to [facility] 05/20/24 with bilateral hip groin pain. Discharged home 05/30/24 with [facility]. 63-year-old female with PMH of MDD, memory loss who is presenting with bilateral hip and groin pain. Reports symptoms began with pain in her left anterior hip/groin, by night had pain in bilateral hips. Pain has been progressively worse, now is unable to walk due to pain and unsteady gait. Denies abdominal pain, nausea/vomiting, no fevers or chills, no urinary symptoms. Of note,she was seen in the ED on 05/05 for dizziness resulting in a fall with head trauma, had a lacerationthat was repaired with wallace subsequently removed by PCP. She has had ongoing dizziness for several months and is undergoing workup by PCP including vestibular rehab. Denies other falls since 05/05.She is concerned that her lamictal could be causing some of her symptoms. States she takes 200 mg TID which she has been for many years. She is hesitant to decrease her dose given episode of severe major depression after previously titrating down on her medications. She also reports ongoing memory loss along the same time period, had MOCA testing by PCP scoring 16/30 and is pending repeat evaluation by her neurologist Dr. Whitt on 05/22. Course: On present to the ED, she was afebrile 36.7 ??C, heart rate 81, BP 86/55 saturating 97% on room air. Patient underwent ICU evaluation due to concerns of hypotension with MAP less than 65. However blood pressures improved with MAP stable at >65 with 2 L fluid resuscitation. Patient was noted to have elevated D-dimer necessitating a CT chest PE protocol which showed multiple bilateral low er lobe acute segmental/subsegmental pulmonary emboli, more on the left compared to right, with no evidence of right heart strain/central PE. Interstitial alveolar edema right greater than left was noted along with an incidental 0.7 cm right thyroid nodule with macro/rim calcification. She was started on heparin drip for her acute pulmonary embolism and left peroneal DVT on venous duplex. Blood cultures was positive for Streptococcus intermedius and when she was continued on IV ceftriaxone 2 g daily. TTE and MAXIMO were both unremarkable for any vegetation. Neurology, rheumatology, gynecology were all consulted for evaluation of her bilateral hip and groin pain, however CK, TSH, AMADOU, ANCA were all negative and pelvic exam by gynecology was also unremarkable. Behavioral health was also consulted for any psychogenic causes for her pain, but she declined evaluation. Hester MRI from head to hip showed no septic emboli or abscess except for a 4.1 cm abscess in the left abdominal total muscle. IRwas consulted and they drained the abscess on 05/29/2024. Her second set of blood cultures were negative for any bacteremia, and she was on a 14-day course of IV ceftriaxone 2 g daily, to be completed on 06/04/2024. A midline was placed on 05/30/2024, and PT recommended home with home PT. Patient lives with her spouse and reports independence with ADLs and iADLs including driving. Patient reports that she works and is concerned about missed time from work. Information regarding [facility] and [facility] benefit provided. Patient questioned about advanced directives; blank MOLST form and instructions provided and patient notes she will follow up with her PCP to complete. Patientwill schedule any HFU appts and has been educated regarding IV abx administration in the home. Declines OP CM, denies unmet needs. Patient was discharged to home. Patient was discharged with skilled services. Patient was referred to [facility] Was post acute appointment scheduled prior to discharge? No. Patient was not able to be scheduled due to patient request Case management performed the following activities to assist in patient's discharge: Met with patient/family and supported existing discharge plan of care (3 or more conversations) Is patient being referred for ACP program? No Is outpatient care management recommended as part of discharge plan? No documented in this encounter Plan of Treatment Upcoming Encounters Date Type Department Care Team (Late st Contact Info) Description 06/27/2024 11:00 AM EST Office Visit [facility] [address] [facility] [place] [address] Deanne Ibarra PA [address] [facility] [place] [address] HFU 08/16/2024 10:25 AM EDT CPE - Comprehensive Physical Exam [facility] [address] [place] [address] Alfreda Costa DO [address] [place] [address] Physical - [facility] SENT TO [facility] 02/27/2025 1:15 PM EST Radiology [facility]. Mammography [address] [place] [address] documented as of this encounter Visit Diagnoses Not on filedocumented in this encounter Care Teams Freight Handler Relationship Specialty Start Date End Date Alfreda Costa DO [address] [place] [address] PCP - General Internal Medicine 09/03/19 documented as of this encounter
--- OUTSIDE RECORDS SUMMARY | 2024-06-25 19:19 | XMS_ITS | Encounter Summary ---
Demographics Address [address] [place] [address] Mobile Phone Home Phone Email Address [email or web address] Preferred Language British Marital Status Denominational Affiliation Unknown Race White Ethnic Group Unknown Author Organization [facility] Address [address] [place] [address] Support Name Relationship Address Phone [facility] Contact [address] [place] [address] Shana Danielle [facility] Contact [address] [place] [address] Care Team Providers Care Career Development Coordinator Name Role Phone IgorAlfreda Primary Care Provider [phone] Encounter Details Date Type Department Care Team (Late st Contact Info) Description 06/04/2024 Consult (Initial) [facility] [address] [place] [address] [facility], Unknown Provider Social History Tobacco Use [...] as of this encounter Consult Notes * [facility], Unknown Provider - 06/06/2024 4:47 AM EST Med Student Consult Note by Jesus Alberto Fernando at 06/04/2024 10:01 AM Author: Jesus Alberto Fernando Service: Hematology Author Type: Medical Student Filed: 06/04/2024 4:13 PM Date of Service: 06/04/2024 10:01 AM Status: Attested Credit Card Analyst: Jesus Alberto Fernando (Medical Student) Cosigner: Sathish Ott MD at 06/06/2024 4:47 AM Consult Orders 1. Inpatient consult to Heme/Onc [[id number]] ordered by Dejah Sweeney MD Attestation signed by Sathish Ott MD at 06/06/2024 4:47 AM A Medical Student assisted with the documentation of this service. I saw and personally examined the patient with the Medical Student and reviewed and verified all information documented by the Medical Student and made modification to such information, when appropriate. Katerin 63 yo women with significant family history of malignancy presenting with subacute systemic inflammatory syndrome, chronic suprapubic pain, hematuria, dysuria, asthenia and thrombocytosis in the setting of recent hospitalizatin at [facility] (05/19/24-05/30/24) for same presentation found to have obturator abscess (cryptic etiology), staph intermedius bacteremia, and DVT/PE. Hematology consulted forthrombocytosis. Lab data and symptom constelation are consistent with systemic inflammatory process, with polyclonal gammopathy, anemia, thrombocytosis, elevated ESR/CRP drenching night sweats and severe fatigue/asthenia. The abscess she presented with is troubling given no clear nidus for this, no known immune compromise state. Given abscess drained and on broad spectrum antibiotics, now with blood cultures cleared, if entirety of symptoms were related ot inflammation from abscess/bacteremia would expect markedly improved symptom burden, however this has not been the case. This evokes an underlying systemicinflammatory process that led to immune compromise, infection/abscess, with resulting hypercoaguable state. No clear rheumatologic disease clinically with relatively benign exam, no evidence of lymphoproliferative neoplasm or primary bone marrow pathology. Her anemia and thrombocytosis are both likely reactive in the setting of inflammation, in addition to iron deficiency. Her iron studies show mixed anemia of inflammation/acute phase reaction and RAJ concurrently (tsat <20%, elevated ferritin, low TIBC). Recommend venofer 200mg IV daily x5 doses to replete, expect anemia and thrombocytosis to improve within few days of completing course. Continue braod workup for occult rheumatologic disease among other etiologies, as I do not think we have the entire diagnostic landscape for her yet.Recommend HIV, hep b, c, repeat inflammatgory markers, CT a/p, IgG/M/A, SPEP, sFLC, peripheral flowcytometry r/o SPRAY UNIT FEEDER, and NGS MPN core panel to exclude MPN though this is unlikely given acuity. Please repeat hemolysis markers hapto, LDH, retic, Billirubin, JACK, if positive would send PN flow cytometry last check no hemolysis was present. Would also send PTT, INR, fibrinogen to exclude low gradeDIC though unlikely. Regarding suprapubic pain, perhaps discussion with urology for more insight into other etiologies would prompt other diagnostic avenues to explore, now fully treated for bacterial cystitis so aseptic/chronic cystitis seems to be best fit. No new/high risk sexual partners, no previous IVDU or smoking, no recent exotic travel, no ionizing radiation exposure. Could consider vaginal estrogen for ?post menopausal chronic cystitis, given this symptom has been extremely burdensomefor her. Continue AC for DVT/PE--this was a provoked VTE so 3-6 mo duration would be appropriate presuming underlying inflammatory process is controlled by then. If not would switch to low dose (eliquis 2.5mg bid) after 6mo. If MPN panel returns positive, would start aspirin, hydrea vs rodney. Additionally, given her +FH of malignancy, ensure mammogropahy, c-scope screening per guidelines, and would have her seen by genetics r/o germline mutation. I have reviewed, updated, and verified this note's content. I spent a total of 80 minutes on the date of encounter, which included: ?? Preparing to see the patient (e.g., review of test results) ?? Obtaining and/or reviewing separately obtained history ?? Performing a medically appropriate exam and/or evaluation ?? Counseling and educating the patient/family/caregiver ?? Ordering medications, tests, procedures ?? Referring and communicating with other healthcare professionals, when not separately reported ?? Documenting clinical information in the health record ?? Independently interpreting results (not separately reported) and communicating results to the patient/family/caregiver ?? Care coordination not separately reported ?? Documented time does not include time for procedures performed during this patient encounter Medical Student Notes should not be used for clinical decision making unless the note has been cosigned by an attending physician. Initial Consult Note Inpatient consult to Heme/Onc Consult performed by: Jesus Alberto Fernando Consult ordered by: Eliazar Morgan MD Reason for consult: Thrombocytosis HPI HISTORY OF PRESENT ILLNESS: History obtained from: Patient and Medical Record 63 year old female w/ PMHx HLD, bipolar disorder, syncope, and hx lung nodules, recently admitted at [facility] (05/19-05/30) for Streptococcus intermedius bacteremia 2/ intra-abdominal abscess s/p antibiotics and IR drainage (05/29) with hospital course c/b pelvic DVT and PE discharged on Eliquis who presented on 06/01 with hematuria and LE weakness. Hematology was consulted for uptrending thrombocytosis. Hematologic/Oncologic History: Extensive family history of multiple cancers (prostate, breast, ovarian, lung, bladder, liver, uterine) Spiculated lung mass o S/p ELZA wedge resection 11/15/22, negative for malignancy Screening colonoscopy: o 06/25/21: Tubular adenoma Hospital Admission 05/19/24-05/30/24: Prior to this admission, had a fall with head trauma requiring sutures (05/05/24) and ongoing dizziness/vertigo suspected to be vestibular in nature; also had COVID vaccine 1 week BECK TENDER. Presented with 3 days of b/l hip and groin pain. Patient was noted to have elevated D-dimer necessitating a CT chest PE protocol which showed multiple bilateral lower lobe acute segmental/subsegmental pulmonary emboli, [...] abscess in the left abdominal total muscle. IR was consulted and they drained theabscess on 05/29/2024. Her second set of blood cultures were negative for any bacteremia, and she wason a 14-day course of IV ceftriaxone 2 g daily, to be completed on 06/04/2024. Interval History: After being discharged home, patient reportedly was unable to to get out of bed and had difficult ambulating. Proximal muscle weakness ongoing for 3 weeks. The suprapubic discomfort did not improve significantly after IR biopsy. She denied any fever or sick contacts. She developed gross hematuria the morning of admission which prompted her to go to the hospital. This Admission: In the ED, patient was afebrile and hemodynamically stable. Initial labs notable for leukocytosis to 14, ALP 159. CTAP demonstrated segmental LLL PE, nonoclussive R external iliac DVT, small residualL obturator intramuscular collection, and grouped pulmonary nodules in the LLL suspected to be infectious or inflammatory. Urology was consulted with no intervention recommended. Neurology was consulted with recommendation to workup for infective endocarditis, myositis, and malignancy. Hematuria has improved since admission. She has been receiving CTX and metronidazole since admission. On interview, patient denied any prior blood clots (before April), easy bruising, or easy bleeding. She denied any family history of blood clots or bleeding. She stated that she has been having night sweats drenching through the bed sheets in the last month, although she has been post-menopausal since age 56. No history of hormone replacement therapy. She denied any weight changes or appetite changes. She described rapid progressive memory problem in the last year as well as multiple syncopalepisodes of unclear etiology, previously established outpatient with neurology. No facial flushing,paresthesias, or pruritus. No vaginal bleeding, GI bleeding, or black stool. She is up to date withmammograms and had a colonoscopy in 2021 which found polyps but she was told to follow up in 10 years. She endorsed an extensive family history of cancer. She has wedge resection in in 2022 at [facility] and the pathology was normal. 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 She stated that many of her family members were smokers but she has never smoked. She denied alcohol consumption. Subjective REVIEW OF SYSTEMS: Review of Systems Constitutional: Positive for activity change and diaphoresis. Negative for appetite change, chills,fever and weight loss. HENT: Negative for congestion and rhinorrhea. Eyes: Negative for blurred vision. Respiratory: Negative for cough. Cardiovascular: Negative for chest pain and leg swelling. Gastrointestinal: Positive for constipation. Negative for abdominal distention, melena, blood in stool, nausea and vomiting. Genitourinary: Positive for dysuria and hematuria. Negative for vaginal bleeding. Endocrine: Negative for cold intolerance. Musculoskeletal: Positive for gait problem. Skin: Negative for change in mole. Neurological: Positive for headaches, memory loss, syncope and weakness. Negative for no concussion, dizziness, numbness and tingling. Hematological: Positive for adenopathy and blood clots. Negative for bleeding disorder. Does not bruise/bleed easily. Endorsed a small submandibular tender lymph node Psychiatric/Behavioral: Positive for memory loss. Past Medical History: Anxiety Depression High cholesterol Lung nodule Syncope Past Surgical History: LUNG SEGMENTECTOMY Medications Current Medications: ??? apixaban (ELIQUIS) tablet 5 mg, 5 mg, oral, q12h SERAFIN ??? [START ON 06/05/2024] cefTRIAXone (ROCEPHIN) injection 1 g, 1 g, intravenous, q24h SERAFIN ??? clonazePAM (KlonoPIN) tablet 0.5 mg, 0.5 mg, oral, 3x daily PRN ??? docusate sodium (COLACE) capsule 100 mg, 100 mg, oral, 2x daily ??? metroNIDAZOLE (FLAGYL) 500 mg in 0.9% NaCl 100 mL IVPB premix, 500 mg, intravenous, q8h SERAFIN ??? naloxone (NARCAN) injection 0.4 mg, 0.4 mg, intravenous, q2h PRN ??? naloxone 0.04 mg injection, 0.04 mg, intravenous, q3min PRN ??? oxyCODONE IR (ROXICODONE) tablet 5 mg, 5 mg, oral, q3h PRN OR oxyCODONE IR (ROXICODONE) tablet 20 mg, 20 mg, oral, q6h PRN ??? senna (SENOKOT) tablet 17.2 mg, 17.2 mg, oral, Nightly ??? sodium chloride 0.9% (NS) premix infusion, , intravenous, Continuous ??? IV Midline Catheter Line Care, , , Until discontinued AND sodium chloride 0.9% flush 10 mL,10 mL, intravenous, See admin instructions AND sodium chloride 0.9% flush 10 mL, 10 mL, intraluminal, q12h SERAFIN ??? IV Peripheral Line Care, , , Until discontinued AND sodium chloride 0.9% flush 2.5-10 mL, 2.5-10 mL, intravenous, See admin instructions AND sodium chloride 0.9% flush 2.5-10 mL, 2.5-10 mL, intravenous, q12h SERAFIN ??? traZODone (DESYREL) tablet 150 mg, 150 mg, oral, Nightly Allergies: Ampicillin Cephalexin Penicillin G Potassium Social History: Tobacco Use ??? Smoking status: Never ??? Smokeless tobacco: Never Substance Use Topics ??? Alcohol use: Never ??? Drug use: Never Family History: Problem Relation Age of Onset ??? Bladder Cancer Paternal Grandmother ??? Breast cancer Maternal Grandmother Paternal Grandmother ??? Graves' disease Brother Paternal Grandmother ??? Hyperlipidemia Mother ??? Liver cancer Paternal Grandfather ??? Lung cancer Maternal Grandfather ??? Ovarian cancer Maternal Grandmother Paternal Great-grandmother ??? Prostate cancer Father ??? Uterine cancer Father's Sister Objective Temp: [36.2 ??C (97.2 ??F)-37.1 ??C (98.8 ??F)] 37.1 ??C (98.8 ??F) Heart Rate: [80-103] 90 Resp: [16-20] 20 BP: (110-121)/(56-78) 116/75 SpO2: [93 %-97 %] 93 % Physical Exam Physical Exam Vitals reviewed. Constitutional: General: She is not in acute distress. Appearance: She is not ill-appearing. Comments: Sitting up in bed, comfortable-appearing, conversational, NAD HENT: Mouth/Throat: Pharynx: Oropharynx is clear. Eyes: Conjunctiva/sclera: Conjunctivae normal. Neck: Comments: Small tender L submandibular lymph node Cardiovascular: Rate and Rhythm: Normal rate and regular rhythm. Heart sounds: No murmur heard. Pulmonary: Effort: Pulmonary effort is normal. Breath sounds: Normal breath sounds. No wheezing or rales. Abdominal: General: Abdomen is flat. There is no distension. Palpations: Abdomen is soft. Tenderness: There is no abdominal tenderness. Genitourinary: Comments: No awan Musculoskeletal: General: No swelling. Cervical back: No tenderness. Right lower leg: No edema. Left lower leg: No edema. Skin: General: Skin is warm and dry. Findings: No rash. Neurological: General: No focal deficit present. Mental Status: She is alert. Result Review Previously normal platelet count 289 on 05/25/24 Ongoing leukocytosis since last admission 05/19/24 Latest Reference Range & Units 10/18/20 15:31 06/01/24 13:01 06/02/24 08:13 06/03/24 11:01 06/04/24 03:44 WBC 3.8 - 10.8 10*3/uL 5.9 14.1 (H) 11.9 (H) 11.3 (H) 11.6 (H) RBC Counted 3.80 - 5.10 10*6/uL 4.66 3.69 (L) 3.57 (L) 3.59 (L) 3.81 Hemoglobin 11.7 - 15.5 g/dL 13.4 10.2 (L) 9.8 (L) 10.1 (L) 10.3 (L) Hematocrit 35.0 - 45.0 % 40.0 31.6 (L) 31.3 (L) 31.2 (L) 32.7 (L) MCV 80.0 - 100.0 fL 85.7 85.6 87.7 86.9 85.8 MCH 27.0 - 33.0 pg 28.7 27.6 27.5 28.1 27.0 MCHC 32.0 - 36.0 g/dL 33.5 32.3 31.3 (L) 32.4 31.5 (L) RDW 11.0 - 15.0 % 15.7 (H) 14.4 14.4 14.0 14.0 Platelet Count 140 - 400 10*3/uL 349 787 (H) 739 (H) 805 (H) 1,166 !! MPV 7.5 - 12.5 fL 7.9 8.6 8.4 8.5 8.5 !!: Data is critical (H): Data is abnormally high (L): Data is abnormally low Latest Reference Range & Units 06/04/24 03:44 Neutrophil %, Manual % 49 Lymphocyte %, Manual % 40 Monocyte %, Manual % 9 Eosinophil %, Manual % 0 Basophil %, Manual % 1 Total Neutrophil #, Manual 1.50 - 7.80 10*3/uL 5.68 Total Lymphocyte #, Manual 0.85 - 3.90 10*3/uL 4.76 (H) Monocyte #, Manual 0.20 - 0.95 10*3/uL 1.04 (H) Eosinophil #, Manual 0.02 - 0.50 10*3/uL 0.00 (L) Basophil #, Manual 0.00 - 0.20 10*3/uL 0.12 Reactive Lymphocytes # 10*3/uL 0.12 Reactive Lymphocyte % 0 - 6 % 1 Total Cells Counted 114 (H): Data is abnormally high (L): Data is abnormally low Latest Reference Range & Units 06/04/24 03:44 Sodium 135 - 145 mmol/L 138 Potassium 3.5 - 5.3 mmol/L 4.0 Chloride 98 - 107 mmol/L 99 CO2 22 - 32 mmol/L 26 Anion Gap 5 - 15 13 Glucose 65 - 99 mg/dL 186 (H) BUN 7 - 23 mg/dL 10 Creatinine Serum 0.50 - 1.20 mg/dL 0.71 Calcium 8.6 - 10.5 mg/dL 9.5 Magnesium 1.6 - 2.4 mg/dL 2.0 eGFR >=60 mL/min/1.73m2 >90 (H): Data is abnormally high Latest Reference Range & Units 06/04/24 03:44 Albumin 3.5 - 5.2 g/dL 3.7 Alkaline Phosphatase 35 - 129 U/L 163 (H) ALT 10 - 40 U/L 12 AST 10 - 40 U/L 22 Bilirubin Conjugated <=0.4 mg/dL 0.2 Bilirubin, Total 0.2 - 1.2 mg/dL 0.4 Bilirubin, Indirect <=0.70 mg/dL 0.20 Total Protein 6.0 - 8.0 g/dL 8.2 (H) (H): Data is abnormally high Latest Reference Range & Units 06/03/24 18:19 LDH 135 - 225 U/L 188 Latest Reference Range & Units 06/04/24 03:44 Ferritin 11.0 - 306.0 ng/mL 451.0 (H) Iron Concentration 30 - 160 ug/dL 26 (L) Iron Binding Capacity 255 - 450 ug/dL 240 (L) Transferrin 200 - 360 mg/dL 192 (L) % Saturation 20 - 50 % 11 (L) (H): Data is abnormally high (L): Data is abnormally low Latest Reference Range & Units 06/03/24 11:01 06/03/24 18:19 C Reactive Protein <=9.9 mg/L 59.2 (H) Sed Rate <30 mm/Hr mm/Hr 84 (H) (H): Data is abnormally high Latest Reference Range & Units 06/02/24 08:13 TSH 0.280 - 3.890 uIU/mL 2.910 Latest Reference Range & Units 06/01/24 11:09 Color, Urine Colorless, Light Yellow, Yellow, Dark Yellow Red ! Clarity, Urine Clear Cloudy ! Specific Kerrick, Urine 1.005 - 1.030 1.015 pH, Urine 4.6 - 8.0 6.0 Protein, Urine Negative 2+ ! Glucose, Urine Negative Negative Ketones, Urine Negative Negative Bilirubin, Urine Negative Negative Blood, Urine Negative 3+ ! Nitrite, Urine Negative Negative Urobilinogen, Urine Normal Normal Leukocyte Esterase, Urine Negative Negative WBC, Urine 0 - 2 /HPF 0 RBC, Urine 0 - 2 /HPF >180 (H) Hyaline Casts, Urine 0 - 2 /LPF 0 Bacteria, Urine None /HPF /HPF None Mucus, Urine /LPF Few !: Data is abnormal (H): Data is abnormally high Imaging/Other Studies CTA chest with contrast (at [facility] on 05/20/24): 1.Multiple bilateral lower lobe [...] MRI pelvis with and without contrast (at [facility] on 05/21/24): IMPRESSION: 1.Findings suspicious for 3.6 cm abscess collection within the left obturator muscle. 2.Urinary bladder wall thickening could represent cystitis, correlation with urinalysis is advised. CT Abd Pelvis W Contrast Addendum Date: 06/01/2024 Addendum: COMMUNICATION: The findings were communicated via [employer] secure chat acknowledged by Dr. Khan at 5:35 PM on 06/01/2024. If this radiology report contains a blank impression section, it is an incomplete radiology report. Please contact the interpreting radiologist or applicable radiology division as soon as possible to obtain the completed interpretation. Workstation ID: [id number] Result Date: 06/04/2024 1. Segmental pulmonary embolism in the left lower lobe. 2. Nonocclusive DVT in the right external iliac vein and also likely within the right superficial femoral vein. 3. Small residual intramuscularcollection within the left adductor dian/obturator externus muscle, consistent with residual or recurrent abscess. 4. Punctate 2 mm nonobstructing stone in the lower pole the left kidney. No hydronephrosis of either kidney. No ureteral stones. 5. Grouped pulmonary nodules in the left lower lobe may be infectious or inflammatory. Suggest comparison with previous outside imaging, if available. Otherwise recommend follow-up chest CT in 3 months. MRI Cervical Spine W WO Contrast, MRI Thoracic Spine with and without Contrast Result Date: 06/03/2024 Degraded study by motion artifact. There is straightening of cervical lordosis, could be positional. The alignment of the cervical spine is otherwise preserved. Diffuse low T1 signal intensity is present of osseous structures. This is nonspecific, possibly representing rebound red marrow in the setting of chronic anemia. Other diffuse infiltrative bone marrow processes may potentially have a similar appearance. No bone marrow signal abnormality is identified. The vertebral body heights are preserved. Degenerative signal through the posterior- superior aspect of the C6 vertebral body. Given thelimitation of the study the visualized spinal cord appears unremarkable. No abnormal enhancement. There is loss of intervertebral disc height and signal at multiple levels in keeping with disc degeneration. The visualized prevertebral and paraspinal soft tissues are unremarkable. At C2-C3, no neural foraminal or spinal canal stenosis.. At C3- C4,uncovertebral joint and facet arthropathy resulting in mild left neural foraminal narrowing. No spinal canal stenosis. At C4-C5, shallow disc herniation, bilateral facet arthropathy without significant neural foraminal or spinal canal stenosis. At C5-C6, grade 1 anterolisthesis of C5 on C6, no significant neural foraminal narrowing. Mild spinal canalstenosis. At C6-C7, uncovertebral joint and facet arthropathy resulting in moderate to severe left n eural foraminal narrowing. No significant spinal canal stenosis. At C7-T1, no significant neural foraminal or spinal canal stenosis. No significant neural foraminal or spinal canal stenosis at thoracic levels. IMPRESSION: Evaluation is degraded by motion artifact on multiple sequences. 1. Multilevel multifactorial degenerative changes most pronounced at C5-C6 and C6-C7 levels where there is up tomoderate to severe left neural foraminal narrowing and mild spinal canal stenosis. 2. No significant neural foraminal or spinal canal stenosis at thoracic levels. 3. No abnormal signal or postcontrast enhancement through the spinal cord. MRI Lumbar Spine W WO Contrast Result Date: 06/03/2024 No evidence of discitis/osteomyelitis in the lumbar spine. No epidural collections or cauda equina compression. Mild L5-S1 disc degeneration without significant spinal canal or neural foraminal narrowing. If this radiology report contains a blank impression section, it is an incomplete radiology report. Please contact the interpreting radiologist or applicable radiology division as soon as possible to obtain the completed interpretation. Workstation ID: [id number] Smear Review: Reactive lymphocytes, some ovalocytes, no schistocytes or dysplastic cells Assessment & Plan Principal Problem: Weakness of both lower extremities Active Problems: Hematuria Pelvic abscess in female Gait instability 63F w/ PMHx HLD, bipolar disorder, syncope, and hx lung nodules, recently admitted at [facility] (05/19-05/30) for Streptococcus intermedius bacteremia 2/2 intra- abdominal abscess s/p antibiotics and IR drainage (05/29) with hospital course c/b pelvic DVT and PE discharged on Eliquis who presented on 06/01 with hematuria and LE weakness. Hematology was consulted for uptrending thrombocytosis. # Severe thrombocytosis # Anemia of inflammation # Elevated acute phase reactants # Recent abdominal abscess s/p IR drainage # Recent unprovoked DVT and PE Impression: Patient with previously normal platelet count as recently as Apr 2024 has developed acute thrombocytosis without bleeding in the setting of recent Streptococcus intermedius bacteremia andintra-abdominal abscess s/p IR drainage (2/) and ongoing antibiotics which is altogether most consistent with reactive thrombocytosis in the setting of acute inflammation. The patient has an elevated ESR/CRP/ferritin and and iron studies are suggestive of a mixed inflammatory and iron deficiency profile. Blood smear was reviewed and notable for reactive lymphocytes suggestive of infection; no schistocytes or dysplastic cells. Would recommend starting IV iron x5 days for suspected iron deficiency and pursue further nutritional workup. While the patient has a history of syncope previously established with outpatient neurology, the patient's CBC trend in the past year is not suggestive of chronic polycythemia or thrombocytosis. No pruritus, flushing, or paresthesias and no family history of hematologic disorders. However, would send for MPN panel to definitely rule out acquired MPN-related primary thrombocytosis. PNH unlikely given absence of hemolysis and intact RBCs noted in gross hematuria. The patient did endorse 1 month of night sweats with no associated weight loss, but no lymphadenopathy noted on recent imaging at OSH. Would favor more extensive infectious workup (e.g. immunocompromised) given that cause of L obturator abscess is unclear. Given that platelets >100,000 recommend studies for acquired vWF deficiency as severe thrombocytosis can deplete vWF and increase risk for bleeding. Would continue anticoagulation with eliquis as previously indicated for recent unprovoked DVT/PE. - Recommend IV venofer x5 days - Recommend NGS MPN panel - Recommend B12/folate levels - Recommend IgG/IgM/IgA levels - F/u vWF antigen and factor 8 ristocetin cofactor - F/u cross-sectional imaging and TTE as recommenced by neurology - Consider further infectious workup (e.g. HIV) - Consider thyroid US for thyroid nodule with rim calcification - Defer to urology for bladder malignancy workup GLOBAL PLAN OF CARE: I have discussed the plan of care with: Fellow and Attending. JESUS ALBERTO FERNANDO MS-4 * [facility], Unknown Provider - 06/04/2024 2:17 PM EST Consults by Oli Hardwick RN at 06/04/2024 2:14 PM Author: Oli Hardwick RN Service: IV Access Nursing Author Type: Registered Nurse Filed: 06/04/2024 2:17 PM Date of Service: 06/04/2024 2:14 PM Status: Signed Credit Card Analyst: Oli Hardwick, RN (Registered Nurse) [facility] IV Access Nursing Consult CONSULTS [facility] ELECTROPLATER AUTOMATIC CONSULT NOTE Oli Hardwick, RN Requested by RN to assess Left UE IV device whether it was a Midline or PICC line. It is a single lumen midline with Midline printed on the hub and also the lumen tubing states power injectable midline. Patient's daughter at bedside also confirmed it was a midline place at [facility].Primary RN at bedside and shown the printing. documented in this encounter Plan of Treatment Upcoming Encounters Date Type Department Care Team (Late st Contact Info) Description 06/27/2024 11:00 AM EST Office Visit [facility] [address] [place] [phone] Deanne Ibarra PA [address] [place] [address] U 08/16/2024 10:25 AM EDT CPE - Comprehensive Physical Exam [facility] [address] [place] [phone] Alfreda Costa DO [address] [place] [address] Physical - LETTER SENT TO [facility] 02/27/2025 1:15 PM EST Radiology [facility] [address] [place] [phone] documented as of this encounter Visit Diagnoses Not on filedocumented in this encounter Care Teams Career Development Coordinator Relationship Specialty Start Date End Date Alfreda Costa DO [address] [place] [address] PCP - General Internal Medicine 09/03/19 documented as of this encounter
--- OUTSIDE RECORDS SUMMARY | 2024-06-25 19:19 | XMS_ITS | Clinical Summary ---
Demographics Address [address] [place] [address] Mobile Phone Home Phone Email Address [email or web address] Preferred Language Albanian Marital Status Sikhism Affiliation Unknown Race White Ethnic Group Unknown Author Organization [facility] Address [address] [place] [address] Support Name Relationship Address Phone [facility] Emergency Contact [address] [place] [address] Shana Danielle Emergency Contact [address] [place] [address] Care Team Providers Care Pattern Technician Name Role Phone CostaAlfreda Primary Care Provider [phone] Allergies Active Allergy Reactions Criticality Noted Date Comments Ampicillin Maculopapular Rash 07/06/2006 Cat Other 12/30/2022 Eyes nose ears and skin itch Keflex Maculopapular Rash 07/06/2006 Oxycodone Pruritus (itching) 11/22/2022 Penicillin G Potassium Maculopapular Rash 07/06 Sulfamethoxazole-Trimet hoprim Maculopapular Rash Medium 11/27/2022 Medications Amphetamine-Dextroa mphetamine 30 MG Tab 1 tablet twice daily 9 Active DULoxetine HCl (CYMBALTA) 60 MG capsule Take by mouth 1 (one) time each day 0 Active clonazePAM (KlonoPIN) 0.5 MG tablet 0.5 mg 3 (three) times a day if needed 0 Active Lamotrigine (LaMICtal) 200 MG tablet Take 200 mg by mouth - Take 3 tablets daily. 1 Active traZODone HCl (DESYREL) 150 MG tablet TAKE ONE TO TWO TABLETS BY MOUTH EVERY NIGHT AT BEDTIME 2 Active Atorvastatin Calcium (LIPITOR) 40 MG tabletIndications:H yperlipidemia, unspecified hyperlipidemia type Take one tablet (40 mg total) by mouth 1 (one) time each day for cholesterol. 90 tablet 1 Active Haloperidol (HALDOL) 0.5 MG tablet Take 0.5 mg by mouth in the morning and at bedtime. 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 A 9 mm nodule with spiculated margins in the left lung apex. 01/13: 1. Left upper lobe spiculated nodule measuring up to 9 mm, stable compared to 10/19/20, with 3 month stability documented. Continued surveillance recommended, with follow-up chest CT in approximately September 2021. 08/02/2022 Pet scan completed 08/[address] scan 6-12 months to monitor stability 07/2023: surgically removed 10/2022; continues to be followed by polmonology Colon cancer screening 03/24/2020 Overview (08/02/2022): 08/02/2022 up to date; colonoscopy 07/14 with recommended 7 year follow-up Hyperlipidemia 06/06/2017 Overview (08/02/2022): 08/02/2022: continues on statin therapy. Labs pending Lab Results Component Value Date CHOLESTEROL 132 12/26/2020 HDL 61 12/26/2020 LDL 55 12/26/2020 CHOLNONHDL 71 12/26/2020 TRIGLYCERIDE 78 12/26/2020 Family history of breast cancer 08/12/2016 Overview (08/08/2023): Recalculation of Tyrer/Cuzick model using additional family history data obtained from the patient raised her breast cancer risk from 19.7 to 24.7. Using this additional information she does meet criteria for high risk screening for breast cancer. mammogram alternative with mri breast This is to inform you that this patient did not schedule her appointment for a MRI to evaluate for Encounter for screening for malignant neoplasm of breast, unspecified screening . MRI done July 2020, next due for mmg Jan 2021. Pt aware and will call radiology for this. 08/02/2022 mammogram scheduled for 08/2022. She alternates between breast MRI and mammogram every 6 months. 07/2023: alternates between mammogram and MRI every 6 months. Pap smear for cervical cancer screening 07/29/19 Overview (08/02/2022): 06-19-2012 Pap - Negative/HPV not detected. 07-22-2016 Pap - Negative/HPV not detected. Plan: rpt 3 yrs. Due in 2019. Discussed New ASCCP guidelines and pt meets criteria to have pap every 5 years. Deferred pap today 07/15/2022: pap w;ith hpv typing done. Results = neg/ neg hpv. PLAN: repeat co- testing in 5 yrs. 08/02/2022: Followed by Cath Lab Manager Multinodular thyroid 07/12/2012 Overview (08/08/2023): 07/2023: continued to be followed by endocrinology Last seen in Endo 2012 with plan of: - f/up US in 1 year. If stable, will have fup US Q 1.5-2 years x 2, then Q 3 y x2 by PCP and return to endo if other Qs/ nodules need FNAs. That wasn't done. Ordering 08/15. Assessment & Plan (11/02/2022 4:52 PM EDT): 11/14: Impression: 1. Heterogeneous and hyperemic thyroid with nodules as above. Recommend fine needle biopsy of nodule #4 in the isthmus if not previously performed. Recommend follow-up imaging in 12 months. MOOD DISORDER xx0.33xx 11/30/2006 Overview (08/02/2022): On Haldol as needed (patienr rarely takes this) Adderall, Cymbalta,lamictal, mirtazapine 08/02/2022 established with both a therapist and a psychiatrist in [place]. She reports mood has been stable. She has started to spend time with friends, which she finds helpful. Assessment & Plan (04/11/2020 1:32 PM EST): On adderall thru Dr Jolly, psychiatrist. Anxiety 03/03/2006 Overview (08/02/2022): Seeing Dr. Bashir in [place]. Looking for therapist. 08/02/2022 she is established with a therapist, finds this helpful. Anxiety is manageable. 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 Sacral back pain PT 09/20/2018 01/01/20 Easy bruising 03/31/2018 03/11/2020 Dysfunction of right rotator cuff 08/01/2017 03/11/2020 Family history of ovarian cancer 08/12/2016 03/24/2020 Spinal stenosis, lumbar 12/15/201502/23 Overview (12/15/2015): Refer to MRI 10/30/15 Impression: Right foraminal/far lateral disc herniation L5-S1 which contacts the right L4 nerve root. There is moderate right-sided foraminal narrowing. Disc bulge L4-5 with mild central canal stenosis and mild left-sided foraminal narrowing. Degenerative changes. Adhesive capsulitis of left shoulder 10/02/2015 03/24/2020 Adhesive capsulitis of left shoulder--REHAB 08/13/2015 11/25/2015 Sacroiliitis 05/02/2015 03/24/2020 Nipple discharge in female 06/25/2014 0 01/04/2020 Overview (06/17/2015): 06/2014 Patient reports scant, intermittent whitish discharge from the right nipple approximately one month. At first, patient questioned if there may have been a foul odor to the discharge but now discharge is odorless. Right nipple has always been inverted. She denies any obvious injury or trauma to the right breast. Patient had a recent normal mammography in May 2014 that did note dense breasts, small mass could not be excluded. Left breast and nipple have been normal without discharge and/or pain. Patient has a family history of breast cancer in both grandmothers and a paternal great aunt. She denies any pain or redness of the breast, she denies any bleeding from the nipple and/or staining of her bras, no palpable masses on self breast examinations at home, and she denies fever/chills. Breast exam today is normal without masses and/or axillary lymphadenopathy bilaterally. Right nipple is inverted, dry and excoriated, culture obtained to rule out skin infection. Ultrasound right breast with focus on areola ordered to rule out malignancy. Advised warm compress and vitamin E oil to area for possible blocked mammary duct. Advised to follow-up as needed if symptoms fail to improve or sooner if redness, pain, fever, bleeding, and/or palpable mass develop. Patient agreeable with plan. 06/2014 Culture of nipple discharge positive for staph-patient started on bactrim DS x 10 days based on culture and sensitivity. Ultrasound normal, no collection or focal abnormality visualized Elevated cholesterol 10/22/2013 020 Blood glucose abnormal 10/22/201301/03 Eating disorder 11/14/2009 03/24/2020 VARICOSE VEIN OF LEG 10/21/2006 020 Overview (08/24/2013): Stripping august 2006 , Chronic headache 03/03/2006 05/15/2020 Overview (03/24/2020): Follows with neurology Gastroesophageal reflux disease 10/14/2003 03/24/2020 Overview (08/26/2020): 10/12/2000 Maegan PARMAR M.D. Sinusitis (chronic) 06/28/2003 01/01/20 20 Overview (03/21/2015): 06/28/2003 Maegan PARMAR M.D. 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 Encounters Date Type Department Care Team Description 06/24/2024 Consult (Initial) [facility] [address] [place] [address] Roslyn Quarles 06/23/2024 Consult (Initial) [facility] [address], Unknown Provider 06/20/2024 Minor Procedure/Test [facility] [address], Unknown Provider 06/18/2024 Telephone [facility] [address] [place] [address] Alfreda Costa [facility] F/U 06/18/2024 Orders Only [facility] [address], Unknown Provider 06/13/2024 Telephone [facility] [address] [place] [phone] Rebekah Alejo MA Care Coordination Communication 06/07/2024 Professional Billing [facility] Based Quality Assurance Auditor Chrissy Lincoln MD Lower abdominal pain [R10.30]; Hip pain, unspecified laterality [M25.559]; Difficulty walking [R26.2]; Hypotension, unspecified hypotension type [I95.9]; Bilateral pulmonary embolism (HCC) [I26.99]; Acute deep vein thrombosis (DVT) of left peroneal vein (HCC) [I82.452]; Pelvic abscess in female [N73.9]; Bacteremia due to Streptococcus [R78.81, B95.5]; Memory loss [R41.3]; Constipation, unspecified constipation type [K59.00] 06/07/2024 Orders Only [facility] [address], Unknown Provider 06/05/2024 Consult (Initial) [facility] [address] [place], [place] [id number] [place] [address], Unknown Provider 06/04/2024 Consult (Initial) [facility] [address] [place], [place] [phone] [place] [address], Unknown Provider 06/02/2024 Consult (Initial) [facility] [address] [place], [place] [id number] [place] [address], Unknown Provider 06/01/2024 Hospital/Inpatient [facility] [address] [place] [address] Cleveland Napoles 06/01/2024 Hospital/Inpatient [facility] [address] [place], [place] [id number] [place] [address], Unknown Provider 06/01/2024 Telephone [facility] Infectious Disease [address] [facility] [address] [place] [address] Juma Hernandez MD VNA Communication 06/01/2024 ER [facility] [address] [place], [place] [phone] [place] [address], Unknown Provider 06/01/2024 Telephone [facility] [address] [place] [address] Kamini Tillman, MJ Care Coordination Communication (Discharge CM Note ) 05/31/2024 Telephone [facility] [address] [place] [phone] Alfreda Costa DO Hospital F/U 05/31/2024 Telephone [facility] [address] [place] [phone] Alfreda Costa DO VNA Communication; Hematuria 05/30/2024 Minor Procedure/Test NON [facility] [address] [place] [address] [facility], Unknown Provider 05/29/2024 Consult (Initial) NON [facility] [address] [place] [address] [facility], Unknown Provider 05/25/2024 Consult (Initial) NON [facility] [address] [place] [address] [facility], Unknown Provider 05/24/2024 Consult (Initial) NON [facility] [address] [place] [address] [facility], Unknown Provider 05/24/2024 Professional Billing [facility] Cardiology [address] [facility] [address] [place] [address] Juan Jose Cannon, DO Bacteremia 05/23/2024 Professional Billing [facility] Cardiology [address] [facility] [address] [place] [address] Juan Jose Cannon, DO Acute pulmonary embolism without acute cor pulmonale, unspecified pulmonary embolism type; Bacteremia 05/22/2024 Consult (Initial) NON FC [facility] [address] [place] [address] Hollie Tellez MD 05/22/2024 Consult (Initial) NON FC [facility] [address] [place] [address] [facility], Unknown Provider 05/22/2024 Professional [facility] Neurology [address] [facility] [address] [place] [address] Hollie Tellez MD Bilateral leg weakness 05/22/2024 Consult (Initial) NON FC [facility] [address] [place] [address] Juma Hernandez MD 05/21/2024 Professional Billing [facility] Based Quality Assurance Auditor Donnell Qureshi MD Unsteady gait-PT; Leukocytosis, unspecified type; Acute anemia; Bilateral pulmonary embolism; Hypotension, unspecified hypotension type; Gram-positive cocci bacteremia; Muscle abscess; Acute deep vein thrombosis (DVT) of left peroneal vein; MOOD DISORDER xx0.33xx 05/21/2024 Professional [facility] [address] [facility] [address] [place] [address] Juan Jose Cannon, Other acute pulmonary embolism without acute cor pulmonale; Leukocytosis, unspecified type; Weakness of both lower extremities 05/21/2024 Consult (Initial) NON FC [facility] [address] [place] [address] [facility], Unknown Provider 05/21/2024 Consult (Initial) NON FC [facility] [address] [place] [address] Juan Jose Cannon, DO 05/21/2024 Minor Procedure/Test NON FC [facility] [address], Unknown Provider 05/20/2024 Telephone [facility] Night Triage [address] [place] [address] Alfreda Costa DO Return Call 05/20/2024 ER NON [address], Unknown Provider 05/19/2024 Hospital/[place] [address] Chrissy Lincoln MD Shortness of breath; Infective myositis, left thigh; Other pulmonary embolism with acute cor pulmonale; Other shock; Unspecified dementia, unspecified severity, with mood disturbance; Major depressive disorder, single episode, unspecified; Bipolar disorder, unspecified; Nonrheumatic mitral (valve) insufficiency; Acute embolism and thrombosis of left peroneal vein; Bacteremia; Unspecified dementia, unspecified severity, with anxiety; Other elevated white blood cell count; Hyperlipidemia, unspecified; Hypoxemia; senior living (current) use of anticoagulants; Other superintendent container terminal (current) drug therapy; Dizziness and giddiness; Other amnesia; 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) use of antithrombotics/antip latelets; Other streptococcus as the cause of diseases classified elsewhere; Elevated white blood cell count, unspecified; Unsteadiness on feet; Constipation, unspecified; History of falling; Allergy status to penicillin; Allergy status to other antibiotic agents Discharge Disposition: Discharged/transd to home (care by home health service organization) 05/18/[address] [phone] Alfreda Costa DO Other (Groin pain ) 05/15/[address] [phone] Alfreda Costa DO Other (Sick letter ) 05/11/2024 10:00 AM EST Office Visit [facility] [address] [phone] Alfreda Costa DO Open wound (Primary Dx); Vertigo; Need for vaccination; MOOD DISORDER xx0.33xx; Benign paroxysmal positional vertigo, unspecified laterality; Anxiety; Multinodular thyroid; Hyperlipidemia, unspecified hyperlipidemia type; Dementia, unspecified dementia severity, unspecified dementia type, unspecified whether behavioral, psychotic, or mood disturbance or anxiety; Hyperlipidemia; Major depressive disorder, recurrent episode, in partial remission; Unspecified dementia, unspecified severity, without behavioral disturbance, psychotic disturbance, mood disturbance, and anxiety 05/11/2024 Telephone [facility] [address] [place] [phone] Alfreda Costa, Other 05/10/2024 Telephone [facility] Neurology [address] [facility] [address] [place] [address] Ramakrishna Whitt MD Dizziness 05/08/2024 Telephone [facility] [address] [place] [phone] Alfreda Costa, Appointment 05/07/2024 Telephone [facility] Neurology [address] [facility] [address] [place] [address] Ramakrishna Whitt MD Dizziness (Evaluated at [facility] ER 05/06 ) 05/05/2024 Minor Procedure/Test Emergency Department [place], [address] Provider, Unknown 05/05/2024 Minor Procedure/Test Emergency Department [place], [address] Tenzin Mendieta 05/05/2024 ER [facility], Unk Prov 04/17/2024 Refill [facility] [address] [place] [phone] Alfreda Costa DO Refill Request 04/09/2024 Telephone [facility] Machine Operator Helper [address] [place] [phone] Taniya Carlos FUEL TECHNICIAN Reschedule 04/02/2024 Telephone [facility] Machine Operator [facility] [address] [place] [phone] Taniya Carlos NP Reschedule 03/27/2024 11:00 AM EST Minor Procedure/Test [facility] [address] [place] [phone] HarrisTommy ridley, TRACTOR SWEEPER DRIVER Unsteady gait-PT (Primary Dx) from Last 3 Months Immunizations Name Administration Dates Next Due COVID-19, mRNA (Pfizer Pre F all 2022) Monovalent, 30 mcg/0.3 ml 04/29/2021 Covid-19, Vector-nr (PLAYSTUDIOS), 0.5 Ml 07/26/2020 Covid-19, mRNA (Pfizer Comir anupama) Seasonal, 30 mcg/0.3 mL (12+) 08/08/2023 Flu Not O/W Specified, 3yrs & > 01/19/2012 Flu Vac Purchased 36 mos and older 01/25/2009 Influenza,MDCK,trivalent,PF (Flucelvax) 05/11/2024 Influenza,injectable,MDCK, P rsrv Fr,Quad 08/08/2023,04/11/2020 Influenza,injectable,quad,Prsrv Fr 04/29,12/20/2018,03/31/2018,2013 Influenza,seasonal,trivalent ,preserva tive (FLUZONE MDV) 04/05/2007,04/02/2003,02/10/2000 PPD/TST (Tuberculin Skin Test) 01/09/2014,2007,01/03/2008 Rsv Recombinant Bivalent, 0. 5 ML (Abrysvo) 05/11/2024 State H1N1 Vaccine,injection 05/21/2009 Td (adult), adsorbed 06/06/2017 Tdap 05/11/2024 Tdap(Boostrix) 10/21/2006 Zoster (Shingrix) 08/03/2021,04/11/2020 Family History Medical History Relation Name Comments Thyroid Disorder Brother Graves Cancer - Prostate Father Diabetes Father Lipid/Cholesterol Abnormality Father Cancer - Breast Maternal grandmother Lipid/Cholesterol Abnormality Mother Cancer - Ovarian Other 2 paternal gr eat grandmother Cancer (?Type) Paternal aunt uterine canc er age 19= hyst and ovaries removed. Cancer (?Type) Paternal grandfather liver Cancer (?Type) Paternal grandmother bladd er cancer before breast cancer. Cancer - Breast Paternal grandmother IN H ER 50'S/ Thyroid Disorder Paternal grandmother Gra ves Relation Name Status Comments Brother Alive Father Alive Maternal grandfather Maternal grandmother Mother Alive Other 1 Other 2 Paternal aunt Alive Paternal grandfather Paternal grandmother Social History Tobacco Use Types Packs/Day Years Used Date Smoking Tobacco: Never Smokeless Tobacco: Never Tobacco Cessation:Counseling Given: Not Answered Alcohol Use Standard Drinks/Week Comments Not Currently [...] file Not on file Not on file Last Filed Vital Signs Vital Sign Reading Time Taken Comments Blood Pressure 107/69 05/11/2024 10:14 AM EST Pulse 92 05/11/2024 10:14 AM EST Temperature 37.3 ??C (99.1 ??F) 03/29/2022 3:10 PM ES T Respiratory Rate 16 01/09/2018 7:27 PM EDT Oxygen Saturation 98% 03/29/2022 3:10 PM EST Inhaled Oxygen Concentration - - Weight 68.5 kg (151 lb) 05/11/2024 10:14 AM EST Height 163.8 cm (5' 4.5 ) 08/08/2023 10:21 AM ED T Body Mass Index 25.52 08/08/2023 10:21 AM EDT Plan of Treatment Upcoming Encounters Date Type Department Care Team (Late st Contact Info) Description 06/27/2024 11:00 AM EST Office Visit [facility] [address] [place], [place] [phone] [facility] [phone] Deanne Ibarra PA [address] [place] [address] HFU 08/16/2024 10:25 AM EDT CPE - Comprehensive Physical Exam [facility] [address] [place] [address] [place] [phone] Alfreda Costa DO [address] [place] [address] Physical - LETTER SENT TO [facility] 02/27/2025 1:15 PM EST Radiology [facility]. Mammography [address] [place] [address] Health Maintenance Due Date Last Done Comments Pneumococcal 50+ years (1 of 1 - PCV) 2012 COVID-19 Vaccine ( season) 2023 08/08/2023, 04/29/2021, 07/26/2020 Mammogram/Breast Imaging 01/10/2025 024, 12/21/2022, 08/13/2021, Additional history exists Pap Smear 07/15/2025 07/15/2022, 06/25, 06/19/2012, Additional history exists Colonoscopy 06/25/2028 06/25/2021 DTaP/Tdap/Td (4 - Td or Tdap) 05/11/2034 05/11/2024, 06/06/2017, 10/21/2006 PPD Discontinued 01/09/2014, 12/24, 01/03/2008 Bone Density Discontinued 07/12/2017 Eye/Retina Exam Discontinued 12/21/2017, 11/24, 12/21/2017, Additional history exists Hepatitis C Screening Completed 05/26/2018 Colon Cancer Screening Discontinued 06/25/2021 Zoster (Shingrix) Completed 08/03/2021, 04/11/2020 HPV Testing Discontinued 07/15/2022 LDL Cholesterol Discontinued 08/08/2023, 07/24, 12/26/2020, Additional history exists Physical Discontinued 08/08/2023, 07/24, 05/15/2020, Additional history exists Influenza Completed 05/11/2024, 07/24, 04/29/2021, Additional history exists RSV Completed 05/11/2024 EKG Discontinued 05/20/2024, 12/24, 12/30/2022, Additional history exists Chest Imaging Discontinued 06/05/2024, 05/26, 06/05/2024, Additional history exists Carotid Imaging Discontinued 06/06/2024, 10/19/2020 HPV Vaccine Aged Out No longer eligi ble based on patient's age to complete this topic Hep A Aged Out No longer eligi ble based on patient's age to complete this topic Hep B Aged Out No longer eligi ble based on patient's age to complete this topic Hib Aged Out No longer eligi ble based on patient's age to complete this topic Meningococcal ACWY Aged Out No longer eligible based on patient's age to complete this topic Zoster (Zostavax) Discontinued Procedures * Due to [place] state law, this organization might not be sharing negative HIV tests. Procedure Name Priority Date/Time Associated Diagnosis Comments COMPREHENSIVE METABOLIC PANEL Routine 06/18/2024 5:55 AM EST CBC AUTO DIFFERENTIAL Routine 06/18/2024 5:55 AM EST CBC AUTO DIFFERENTIAL Routine 06/14/2024 6:00 AM EST COMPREHENSIVE METABOLIC PANEL Routine 06/14/2024 5:00 AM EST BASIC METABOLIC PANEL Routine 06/11/2024 5:00 AM EST CBC AUTO DIFFERENTIAL Routine 06/11/2024 5:00 AM EST BASIC METABOLIC PANEL Routine 06/08/2024 5:49 AM EST MAGNESIUM Routine 06/08/2024 5:49 AM EST CBC AUTO DIFFERENTIAL Routine 06/08/2024 5:49 AM EST XR PELVIS 3 OR MORE VWS 06/07/19 5:18 PM EST UNCLASSIFIED TEST/PROCEDURE 06/07/2024 3:51 PM EST C-REACTIVE PROTEIN Routine 06/07/2024 3: 14 PM EST SEDIMENTATION RATE Routine 06/07/2024 3: 14 PM EST BASIC METABOLIC PANEL Routine 06/07/2024 5:31 AM EST MAGNESIUM Routine 06/07/2024 5:31 AM EST CBC AUTO DIFFERENTIAL Routine 06/07/2024 5:31 AM EST MRI BRAIN W WO CONTRAST 06/06/19 9:51 AM EST MRI (MSK) PELVIS W AND WO CONTRAST 06/06/2024 9:29 AM EST BASIC METABOLIC PANEL Routine 06/06/2024 7:13 AM EST MAGNESIUM Routine 06/06/2024 7:13 AM EST CBC AUTO DIFFERENTIAL Routine 06/06/2024 7:[address] CHEST WITH CONTRAST 1:18 PM EST TRANSTHORACIC ECHO (TTE) BUBBLE STUDY 06/05/2024 10:55 AM EST MYELOPROLIFERATIVE NEOPLASMS (MPN) CORE DIAGNOSTIC PANEL Routine 06/05/2024 3:49 AM EST IMMUNOGLOBULINS PANEL (IGG, IGA, IGM) Routine 06/05/2024 3:49 AM EST FOLATE Routine 06/05/2024 3:49 AM EST VITAMIN B12 Routine 06/05/2024 3:49 AM EST BASIC METABOLIC PANEL Routine 06/05/2024 3:49 AM EST MAGNESIUM Routine 06/05/2024 3:49 AM EST CBC AUTO DIFFERENTIAL Routine 06/05/2024 3:49 AM EST LACTIC ACID, PLASMA Routine 06/04/2024 10:41 PM EST CBC AUTO DIFFERENTIAL Routine 06/04/2024 10:41 PM EST TYPE AND SCREEN Routine 06/04/2024 10:37 PM EST COMPREHENSIVE METABOLIC PANEL Routine 06/04/2024 10:37 PM EST FACTOR 8 RISTOCETIN COFACTOR Routine 06/04/2024 11:04 AM EST VON WILLEBRAND FACTOR ANTIGEN Routine 06/04/2024 11:04 AM EST MANUAL DIFFERENTIAL Routine 06/04/2024 9 :57 AM EST CBC AUTO DIFFERENTIAL Routine 06/04/2024 9:57 AM EST PARANEOPLASTIC ANTIBODY EVALUATION W/REFLEX TO TITER AND LINE BLOT, BASIC Routine 06/04/2024 3:44 AM EST AMADOU SCREEN, IFA, W/REFLEX TO TITER & PATTERN Routine 06/04/2024 3:44 AM EST ALDOLASE Routine 06/04/2024 3:44 AM EST VITAMIN D 1,25 DIHYDROXY Routine 025 3:44 AM EST WATER SAF[employer]Y TEACHER ANTIBODY Routine 06/04/2024 3:44 AM EST DNA ANTIBODY, DOUBLE-STRANDED Routine 06/04/2024 3:44 AM EST COMPLEMENT C3 Routine 06/04/2024 3:44 AM EST COMPLEMENT C4 Routine 06/04/2024 3:44 AM EST MORENO (SM) ANTIBODY Routine 06/04/2024 3 :44 AM EST HEPATIC FUNCTION PANEL Routine 3:44 AM EST IRON SATURATION Routine 06/04/2024 3:44 AM EST FERRITIN Routine 06/04/2024 3:44 AM EST MANUAL DIFFERENTIAL Routine 06/04/2024 3 :44 AM EST CBC AUTO DIFFERENTIAL Routine 06/04/2024 3:44 AM EST BASIC METABOLIC PANEL Routine 06/04/2024 3:44 AM EST MAGNESIUM Routine 06/04/2024 3:44 AM EST RHEUMATOID FACTOR Routine 06/03/2024 6:1 9 PM EST LACTATE DEHYDROGENASE Routine 06/03/2024 6:19 PM EST SEDIMENTATION RATE Routine 06/03/2024 6: 19 PM EST MRI CERVICAL SPINE W WO CONTRAST 06/03/2024 2:11 PM EST MRI THORACIC SPINE W WO CONTRAST 06/03/2024 2:11 PM EST MRI LUMBAR SPINE W WO CONTRAST 06/03/2024 12:03 PM EST C-REACTIVE PROTEIN Routine 06/03/2024 11:01 AM EST BASIC METABOLIC PANEL Routine 06/03/2024 11:01 AM EST MAGNESIUM Routine 06/03/2024 11:01 AM EST CBC AUTO DIFFERENTIAL Routine 06/03/2024 11:01 AM EST BLOOD CULTURE Routine 06/02/2024 4:42 PM EST BLOOD CULTURE Routine 06/02/2024 4:42 PM EST CK Routine 06/02/2024 12:03 PM EST TSH REFLEX FREE T4 Routine 06/02/2024 8: 13 AM EST COMPREHENSIVE METABOLIC PANEL Routine 06/02/2024 8:13 AM EST CBC Routine 06/02/2024 8:[address] ABDOMEN PELVIS W CONTRAST 06/01/2024 5:47 PM EST TYPE AND SCREEN Routine 06/01/2024 1:01 PM EST BASIC METABOLIC PANEL Routine 06/01/2024 1:01 PM EST CBC AUTO DIFFERENTIAL Routine 06/01/2024 1:01 PM EST URINALYSIS W/REFLEX TO MICROSCOPIC & CULTURE Routine 06/01/2024 11:09 AM EST GLUCOSE POINT OF CARE Routine 05/30/2024 4:03 PM EST GLUCOSE POINT OF CARE Routine 05/30/2024 11:11 AM EST GLUCOSE POINT OF CARE Routine 05/30/2024 6:26 AM EST MAGNESIUM LEVEL Routine 05/30/2024 6:20 AM EST HEPATIC FUNCTION PANEL Routine 6:20 AM EST BASIC METABOLIC PANEL Routine 05/30/2024 6:20 AM EST COMPLETE BLOOD COUNT WITH AUTO DIFFERENTIAL Routine 05/30/2024 6:20 AM EST PROCEDURE NOTE 05/30/2024 GLUCOSE POINT OF CARE Routine 05/29/2024 8:18 PM EST GLUCOSE POINT OF CARE Routine 05/29/2024 4:[address] GUIDED CATH FLUID DRAINAGE Routine 05/29/2024 11:56 AM EST WOUND CULTURE Routine 05/29/2024 11:55 AM EST PARTIAL THROMBOPLASTIN TIME Routine 05/29/2024 10:40 AM EST PARTIAL THROMBOPLASTIN TIME Routine 05/29/2024 2:20 AM EST MAGNESIUM LEVEL Routine 05/29/2024 2:20 AM EST HEPATIC FUNCTION PANEL Routine 2:20 AM EST BASIC METABOLIC PANEL Routine 05/29/2024 2:20 AM EST COMPLETE BLOOD COUNT WITH AUTO DIFFERENTIAL Routine 05/29/2024 2:20 AM EST LAZARO INDIRECT ANTIBODY SCREEN, RBC WITH REFLEX TO IDENTIFICATION AND TITER Routine 05/28/2024 2:18 AM EST ABO/RH Routine 05/28/2024 2:18 AM EST PARTIAL THROMBOPLASTIN TIME Routine 05/28/2024 2:18 AM EST MANUAL DIFF Routine 05/28/2024 2:18 AM EST PHOSPHATE LEVEL Routine 05/28/2024 2:18 AM EST MAGNESIUM LEVEL Routine 05/28/2024 2:18 AM EST PROTHROMBIN TIME Routine 05/28/2024 2:18 AM EST BASIC METABOLIC PANEL Routine 05/28/2024 2:18 AM EST COMPLETE BLOOD COUNT WITH AUTO DIFFERENTIAL Routine 05/28/2024 2:18 AM EST PARTIAL THROMBOPLASTIN TIME Routine 05/27/2024 2:31 AM EST MAGNESIUM LEVEL Routine 05/27/2024 2:31 AM EST HEPATIC FUNCTION PANEL Routine 2:31 AM EST BASIC METABOLIC PANEL Routine 05/27/2024 2:31 AM EST COMPLETE BLOOD COUNT WITH AUTO DIFFERENTIAL Routine 05/27/2024 2:31 AM EST PARTIAL THROMBOPLASTIN TIME Routine 05/26/2024 6:50 PM EST PARTIAL THROMBOPLASTIN TIME Routine 05/26/2024 3:14 PM EST MANUAL DIFF Routine 05/26/2024 6:04 AM EST PARTIAL THROMBOPLASTIN TIME Routine 05/26/2024 6:04 AM EST COMPLETE BLOOD COUNT WITH AUTO DIFFERENTIAL Routine 05/26/2024 6:04 AM EST MAGNESIUM LEVEL Routine 05/26/2024 6:04 AM EST HEPATIC FUNCTION PANEL Routine 6:04 AM EST BASIC METABOLIC PANEL Routine 05/26/2024 6:04 AM EST PARTIAL THROMBOPLASTIN TIME Routine 05/25/2024 10:42 PM EST PARTIAL THROMBOPLASTIN TIME Routine 05/25/2024 3:[address] PELVIS W. CONTRAST Routine 05/25/2024 10:49 AM EST MAGNESIUM LEVEL Routine 05/25/2024 7:44 AM EST HEPATIC FUNCTION PANEL Routine 7:44 AM EST BASIC METABOLIC PANEL Routine 05/25/2024 7:44 AM EST PARTIAL THROMBOPLASTIN TIME Routine 05/25/2024 7:44 AM EST COMPLETE BLOOD COUNT WITH AUTO DIFFERENTIAL Routine 05/25/2024 7:44 AM EST PARTIAL THROMBOPLASTIN TIME Routine 05/24/2024 9:51 PM EST PARTIAL THROMBOPLASTIN TIME Routine 05/24/2024 2:42 PM EST PROTHROMBIN TIME Routine 05/24/2024 2:42 PM EST COMPLETE BLOOD COUNT WITH AUTO DIFFERENTIAL Routine 05/24/2024 2:42 PM EST VANCOMYCIN LEVEL TROUGH Routine 05/24/19 8:18 AM EST TRANSESOPHAGEAL ECHOCARDIOGRAM Routine 05/24/2024 7:45 AM EST ANTINEUTROPHIL CYTOPLASMIC AB Routine 05/24/2024 6:06 AM EST MYELOPEROXIDASE ANTIBODIES Routine 05/24/2024 6:06 AM EST ANTINUCLEAR ANTIBODIES, IFA Routine 05/24/2024 6:06 AM EST MAGNESIUM LEVEL Routine 05/24/2024 6:06 AM EST HEPATIC FUNCTION PANEL Routine 6:06 AM EST BASIC METABOLIC PANEL Routine 05/24/2024 6:06 AM EST COMPLETE BLOOD COUNT WITH AUTO DIFFERENTIAL Routine 05/24/2024 6:06 AM EST PHOSPHATE LEVEL Routine 05/23/2024 9:10 AM EST MAGNESIUM LEVEL Routine 05/23/2024 9:10 AM EST HEPATIC FUNCTION PANEL Routine 9:10 AM EST BASIC METABOLIC PANEL Routine 05/23/2024 9:10 AM EST COMPLETE BLOOD COUNT WITH AUTO DIFFERENTIAL Routine 05/23/2024 9:10 AM EST MRI THOR WO/W CM Routine 05/22/2024 8:16 PM EST MRI BRAIN/HEAD WO/W CM Routine 8:15 PM EST BLOOD CULTURE Routine 05/22/2024 4:50 PM EST BLOOD CULTURE Routine 05/22/2024 4:50 PM EST PARTIAL THROMBOPLASTIN TIME Routine 05/22/2024 12:20 PM EST VANCOMYCIN LEVEL TROUGH Routine 05/22/19 12:20 PM EST PARTIAL THROMBOPLASTIN TIME Routine 05/22/2024 8:01 AM EST PHOSPHATE LEVEL Routine 05/22/2024 5:25 AM EST MAGNESIUM LEVEL Routine 05/22/2024 5:25 AM EST COMPREHENSIVE METABOLIC PANEL Routine 05/22/2024 5:25 AM EST COMPLETE BLOOD COUNT WITH AUTO DIFFERENTIAL Routine 05/22/2024 5:25 AM EST PARTIAL THROMBOPLASTIN TIME Routine 05/21/2024 10:09 PM EST MRI PELVIS WO/W CM Routine 05/21/2024 10:06 PM EST MRI LUMB WO/W CM Routine 05/21/2024 10:03 PM EST PARTIAL THROMBOPLASTIN TIME Routine 05/21/2024 1:06 PM EST COMPREHENSIVE METABOLIC PANEL Routine 05/21/2024 12:52 PM EST TROPONIN T, HIGH SENSITIVITY Routine 05/21/2024 12:52 PM EST ECHOCARDIOGRAM Routine 05/21/2024 8:32 AM EST COMPLETE BLOOD COUNT WITH AUTO DIFFERENTIAL Routine 05/21/2024 6:25 AM EST MANUAL DIFF Routine 05/21/2024 12:05 AM EST PARTIAL THROMBOPLASTIN TIME Routine 05/21/2024 12:05 AM EST PROTHROMBIN TIME Routine 05/21/2024 12:05 AM EST COMPLETE BLOOD COUNT WITH AUTO DIFFERENTIAL Routine 05/21/2024 12:05 AM EST CARDIOVASCULAR TEST/PROCEDURE, UNSPECIFIED 05/21/2024 CTA CHEST W/ CONTRAST Routine 05/20/2024 10:57 PM EST OXYCODONE SCREEN Routine 05/20/2024 5:49 PM EST OPIATE SCREEN URINE Routine 05/20/2024 5 :49 PM EST COCAINE SCREEN URINE Routine 05/20/2024 5:49 PM EST CANNABINOID SCREEN URINE Routine 025 5:49 PM EST BENZODIAZEPINE SCREEN URINE Routine 05/20/2024 5:49 PM EST BARBITURATE SCREEN URINE Routine 025 5:49 PM EST AMPHETAMINE SCREEN URINE Routine 025 5:49 PM EST URINALYSIS WITH CULTURE IF INDICATED Routine 05/20/2024 5:49 PM EST D DIMER Routine 05/20/2024 5:39 PM EST RHEUMATOID FACTOR QUANTITATIVE Routine 05/20/2024 3:45 PM EST C REACTIVE PROTEIN QUANT Routine 025 3:45 PM EST THYROXINE FREE Routine 05/20/2024 3:45 PM EST THYROID STIMULATING HORMONE Routine 05/20/2024 3:45 PM EST LDH Routine 05/20/2024 3:45 PM EST CPK Routine 05/20/2024 3:45 PM EST SEDIMENTATION RATE Routine 05/20/2024 3: 45 PM EST CBC Routine 05/20/2024 3:[address] BRAIN W/O CONTRAST Routine 05/20/2024 8:24 AM EST RESPIRATORY VIRUS COVID-19 FLU A+B RSV PCR Routine 05/20/2024 6:34 AM EST CHEST, 1 VIEW Routine 05/20/2024 6:30 AM EST LAMOTRIGINE LEVEL Routine 05/20/2024 5:4 2 AM EST BLOOD CULTURE Routine 05/20/2024 5:42 AM EST BLOOD CULTURE Routine 05/20/2024 5:42 AM EST ELECTROCARDIOGRAM, TRACING Routine 05/20/2024 12:26 AM EST URINALYSIS MICROSCOPIC EXAM Routine 05/19/2024 10:59 PM EST URINALYSIS AUTO W/MICROSCOPIC Routine 05/19/2024 10:[address] ABDOMEN AND PELVIS COMBINED W CONTRAST Routine 05/19/2024 9:46 PM EST MAGNESIUM LEVEL Routine 05/19/2024 9:15 PM EST LIPASE LEVEL Routine 05/19/2024 9:15 PM EST HEPATIC FUNCTION PANEL Routine 9:15 PM EST BASIC METABOLIC PANEL Routine 05/19/2024 9:15 PM EST COMPLETE BLOOD COUNT WITH AUTO DIFFERENTIAL Routine 05/19/2024 8:13 PM EST XRAY ELBOW COMPLETE MIN 3 VWS 05/05/2024 XRAY CHEST 2 VIEWS PA & LAT 05/05/2024 CT HEAD/BRAIN W/O CONTRAST THEN W/CONTRAST AND MORE SECTIONS 05/05/2024 CT SCAN OF SPINE 05/05/2024 MAMMOGRAM SCREENING TOMOSYNTHESIS, BILATERAL Routine 01/11/2024 5:30 PM EDT Breast cancer screening by mammogram LIPID PANEL WITH REFLEX TO DIRECT LDL Routine 08/08/2023 11:13 AM EDT Hyperlipidemia, unspecified hyperlipidemia type THINPREP TIS PAP AND HPV RNA, HR E6/E7, TMA Routine 07/15/2022 2:35 PM EDT Screening for malignant neoplasm of cervix COLONOSCOPY, FLEXIBLE; WITH BIOPSY, SINGLE OR MULTIPLE Routine 06/25/2021 9:21 AM EST Adenomatous polyp of colon, unspecified part of colon Screen for colon cancer Internal hemorrhoids CT ANGIOGRAM HEAD AND NECK W CONTRAST STROKE ACTIVATION 10/19/2020 1:47 AM EDT HEPATITIS C AB WITH REFLEX TO RNA PCR, SERUM Routine 05/26/2018 3:52 PM EST Elevated liver function tests DXA BONE DENSITY STUDY AXIAL (LSSPINE, HIP) (DX: POSTMENOPAUSAL) Routine 07/12/2017 2:44 PM EDT from Last 3 Months or Most Recently Relevant to Health Maintenance Results * Due to [place] state law, this organization might not be sharing negative HIV tests. * (ABNORMAL) CBC AUTO DIFFERENTIAL (06/18/2024 5:55 AM EST) Only the most recent of12 resultswithin the time period is included. WBC 7.2 4.8 - 10.8 10*3/uL [facility] RBC 3.67(L) 4.20 - 5.40 10*6/uL [facility] Hemoglobin 10.2(L) 11.7 - 15.5 g/dL [facility] Hematocrit 32.7(L) 35.7 - 45.8 % [facility] MCV 89.1 81.0 - 99.0 fL [facility] MCH 27.8 26.0 - 34.0 pg [facility] MCHC 31.2 31.0 - 36.0 g/dL [facility] RDW 15.2(H) 12.0 - 15.0 % [facility] RDW STANDARD DEVIATION 48.3(H) 36.4 - 46.3 fL [facility] PLT 439 140 - 440 10*3/uL [facility] Platelet mean volume 8.8(L) 9.4 - 12.3 fL [facility] Neutrophils % 42.0(L) 50.0 - 75.0 % [facility] Granulocytes.betty ture/100 leukocytes 0.8 0.0 - 0.9 % [facility] Lymphocytes % 41.4 20.0 - 44.0 % [facility] Monocytes % 9.8 0.0 - 14.0 % [facility] Eosinophils % 5.2(H) 0.0 - 5.0 % [facility] Basophils % 0.8 0.0 - 2.0 % [facility] Neutrophils # 3.03 1.80 - 7.70 10*3/uL [facility] Immature Granulocytes # 0.06(H) 0.00 - 0.03 10*3/uL [facility] Lymphocytes # 3.00 1.00 - 4.75 10*3/uL [facility] Monocytes # 0.70(H) 0.00 - 0.60 10*3/uL [facility] Eosinophils # 0.40 0.00 - 0.80 10*3/uL [facility] Basophils # 0.10 0.00 - 0.20 10*3/uL [facility] Erythrocytes.nucl eated/100 leukocytes 0.0 0 - 0 /100 WBCs [facility] Erythrocytes.nucl eated <0.01 0.00 - 0.13 10*3/uL [facility] 06/18/2024 5:55 AM EST Narrative [facility] - 06/18/2024 9:46 AM EST NUR3^300^A^0156^^BED^0156 us Unknown Provider [facility] LABORATORY Final Resu lt [facility] [employer] [address] [place] [phone] * (ABNORMAL) COMPREHENSIVE METABOLIC PANEL (06/18/2024 5:55 AM EST) Only the most recent of4 resultswithin the time period is included. Sodium 141 136 - 145 mmol/L [facility] Potassium 4.5 3.5 - 5.1 mmol/L [facility] Chloride 101 98 - 109 mmol/L [facility] Carbon dioxide 32 22 - 32 mmol/L [facility] Anion gap 13 >=0 [facility] Glucose 93 60 - 99 mg/dL [facility] Creatinine 0.70 0.50 - 1.12 mg/dL [facility] Calcium 9.3 8.4 - 10.4 mg/dL [facility] Protein Total (Serum) 6.4(L) 6.6 - 8.7 g/dL [facility] Albumin 3.5 3.5 - 5.0 g/dL [facility] Bilirubin Total 0.1(L) 0.2 - 1.2 mg/dL [facility] Alkaline phosphatase 123 40 - 129 U/L [facility] AST (SGOT) 41(H) 0 - 33 U/L [facility] ALT (SGPT) 30 <=33 U/L [facility] Urea Nitrogen Blood (BUN) 13 8 - 23 mg/dL [facility] EGFR >90 >=60 mL/min/1.7 3m2 [facility] Comment: The estimated glomerular filtration [...] GLOBULIN, TOTAL 2.9 2.1 - 4.2 g/dL [facility] A/G RATIO 1.2(L) 1.5 - 3.0 [facility] 06/18/2024 5:55 AM EST Narrative [facility] - 06/18/2024 9:57 AM EST NUR3^300^A^0156^^BED^0156 NUR3\S\300\S\A\S\0156\S\S\BED\S\0156 us Unknown Provider [facility] LABORATORY Final Resu lt [facility] [employer] [address] [place] [phone] * (ABNORMAL) BASIC METABOLIC PANEL (06/11/2024 5:00 AM EST) Only the most recent of8 resultswithin the time period is included. Sodium 136 136 - 145 mmol/L [facility] Potassium 4.4 3.5 - 5.1 mmol/L [facility] Chloride 97(L) 98 - 109 mmol/L [facility] Carbon dioxide 28 22 - 32 mmol/L [facility] Urea Nitrogen Blood (BUN) 7(L) 8 - 23 mg/dL [facility] Creatinine 0.61 0.50 - 1.12 mg/dL [facility] Glucose 106(H) 60 - 99 mg/dL [facility] Calcium 8.5 8.4 - 10.4 mg/dL [facility] Anion gap 15 >=0 [facility] EGFR >90 >=60 mL/min/1.7 3m2 [facility] Comment: The estimated glomerular filtration rate (eGFR) [...] Disease . 06/11/2024 5:00 AM EST Narrative [facility] - 06/11/2024 9:45 AM EST NUR3^300^A^0156^^BED^0156 NUR3\S\300\S\A\S\0156\S\S\BED\S\0156 us Unknown Provider [facility] LABORATORY Final Resu lt Performing Organization Address City/[facility] Co de Phone Number [facility] [employer] [address] [place] [phone] * MAGNESIUM (06/08/2024 5:49 AM EST) Only the most recent of6 resultswithin the time period is included. Magnesium 1.9 1.6 - 2.4 mg/dL [facility] 06/08/2024 5:49 AM EST us Unknown Provider [facility] LABORATORY Final Resu lt Performing Organization Address [facility] Co de Phone Number [facility] [employer] [address] [place] [phone] * XR PELVIS 3 OR MORE VWS (06/07/2024 5:18 PM EST) Anatomical Region Laterality Modality Other 06/07/2024 5:18 PM EST Narrative 06/07/2024 5:18 PM EST COMPARISON: MRI of the pelvis from 06/06/2024. IMPRESSION: FINDINGS/IMPRESSION: There is patchy sclerosis involving the pubis symphysis, left greater right, which may be degenerative or related to suspected osteomyelitis demonstrated on prior MRI from 06/06/2023. No radiographic evidence of acute fracture or dislocation. Both hips are congruent. The sacroiliac joints appear intact. Degenerative changes of the partially imaged lumbar spine. The sacrum is obscured by overlying soft tissue structures. If this radiology report contains a blank impression section, it is an incomplete radiology report. ??Please contact the interpreting radiologist or applicable radiology division as soon as possible to obtain the completed interpretation. ? Workstation ID: [id number]' [id number] Procedure Note [facility], Unknown Provider - 06/07/2024 COMPARISON: MRI of the pelvis from 06/06/2024. IMPRESSION: FINDINGS/IMPRESSION: There is patchy sclerosis involving the pubissymphysis, left greater right, which may be degenerative or related tosuspected osteomyelitis demonstrated on prior MRI from 06/06/2023. No radiographic evidence of acute fracture or dislocation. Both hips arecongruent. The sacroiliac joints appear intact. Degenerative changes ofthe partially imaged lumbar spine. The sacrum is obscured by overlyingsoft tissue structures. If this radiology report contains a blank impression section, it is anincomplete radiology report. Please contact the interpreting radiologistor applicable radiology division as soon as possible to obtain thecompleted interpretation. Workstation ID: [id number] 5' [id number] us Unknown Provider [facility] Final Resu lt * UNCLASSIFIED TEST/PROCEDURE (06/07/2024 3:51 PM EST) Narrative 06/07/2024 3:51 PM EST Ordered by an unspecified provider. Procedure Note [facility], Unknown Provider - 06/07/2024 3:56 PM EST Images from the original note were not included. Procedures by Eliazar Hammond RN at 06/07/2024 3:51 PM Author: Eliazar Hammond RN Service: IV Access Nursing Author Type:Registered Nurse Filed: 06/07/2024 3:56 PM Date of Service: 06/07/2024 3:51 PM Status:Signed Keyseating Machine Set Up Operator: Eliazar Hammond RN (Registered Nurse) Procedure Orders 1. PLASTERER STUCCO PICC and Midline [[id number]] ordered by Eliazar Hammond RN [facility] IV Access Nursing Procedure Note PICC line insertion Date/Time: 06/07/2024 3:55 PM Performed by: Eliazar Hammond RN Provider type: External RN Vendor Reason for Insertion: intravenous antibiotics Successful placement: yes [place] Protocol Patient identity confirmed: Name and MRN [...] lumen Catheter Size (fr): 4 Lot #: [id number] Catheter Total Length (cm): 38 Catheter External Length (cm): 0 Post-Procedure Central Line Bundle Guidewire Removal Confirmed?: Yes All Ports Capped?: Yes Verification of Line Placement: ECG guidance system Dressing Applied: Antimicrobial Post-Procedure Details Patient tolerance of procedure: Tolerated well, no immediatecomplications Significant events: None Plan: PICC line ready for immediate use Handoff Report Given to: MJ Alfredo RN Ashleigh Silveira : 1960 [facility]: [phone] us Unknown Provider [facility] PROCEDURES Final Resu lt * (ABNORMAL) C-REACTIVE PROTEIN (06/07/2024 3:14 PM EST) Only the most recent of2 resultswithin the time period is included. C reactive protein 29.3(H) <=9.9 mg/L [facility] 06/07/2024 3:14 PM EST us Unknown Provider [facility] LABORATORY Final Resu lt Performing Organization Address [facility] Co de Phone Number [facility] [employer] [address] [place] [phone] * (ABNORMAL) SEDIMENTATION RATE (06/07/2024 3:14 PM EST) Only the most recent of2 resultswithin the time period is included. ESR 60(H) <30 mm/Hr mm/Hr [facility] 06/07/2024 3:14 PM EST us Unknown Provider [facility] LABORATORY Final Resu lt Performing Organization Address [facility] de Phone Number [facility] [employer] [address] [place] [phone] * MRI BRAIN W WO CONTRAST (06/06/2024 9:51 AM EST) Anatomical Region Laterality Modality Other 06/06/2024 9:51 AM EST Narrative 06/06/2024 9:51 AM EST EXAMINATION: MRI brain without and with contrast PHARMACEUTICAL: 0.1 mmol/kg of gadolinium administered intravenously. TECHNIQUE: Multiplanar and multisequence MRI of brain performed without and with intravenous administration of gadolinium. CLINICAL INFORMATION: new onset proximal muscle weakness FINDINGS: Very few small T2 hyperintense foci in cerebral white matter, with entirely nonspecific morphology and distribution. ??This degree of white matter change is of doubtful clinical significance considering the patient's age. Remainder of the brain parenchyma shows normal signal characteristics. ??No acute infarction or acute hemorrhage. ??No intracranial mass. ??No midline shift. ??No abnormal parenchymal or meningeal enhancement. The ventricles and extra-axial CSF spaces are normal in size and configuration. The major intracranial vessels show normal flow related signal void. The orbits, sellar/parasellar structures and craniovertebral junction show no significant abnormality on this nontargeted study. Subcutaneous T2 hyperintensity in frontal scalp, overlying nasal bridge in bilateral premaxillary regions, question prior cosmetic procedure. ??Correlate with history. IMPRESSION: 1. ??No acute intracranial abnormality. 2. ??Very few small T2 hyperintense foci in cerebral white matter, nonspecific, of doubtful clinical significance for patient's age. ?? 3. ??Subcutaneous T2 hyperintensity in face and frontal scalp, question prior cosmetic procedure. ??Correlate with history. If this radiology report contains a blank impression section, it is an incomplete radiology report. ??Please contact the interpreting radiologist or applicable radiology division as soon as possible to obtain the completed interpretation. ? Workstation ID: [id number] 5' [id number] Procedure Note [facility], Unknown Provider - 06/06/2024 EXAMINATION: MRI brain without and with contrast PHARMACEUTICAL: 0.1 mmol/kg of gadolinium administered intravenously. TECHNIQUE: Multiplanar and multisequence MRI of brain performed without and withintravenous administration of gadolinium. CLINICAL INFORMATION: new onset proximal muscle weakness FINDINGS: Very few small T2 hyperintense foci in cerebral white matter, withentirely nonspecific morphology and distribution. This degree of whitematter change is of doubtful clinical significance considering thepatient's age. Remainder of the brain parenchyma shows normal signal characteristics. Noacute infarction or acute hemorrhage. No intracranial mass. No midlineshift. No abnormal parenchymal or meningeal enhancement. The ventricles and extra-axial CSF spaces are normal in size andconfiguration. The major intracranial vessels show normal flow relatedsignal void. The orbits, sellar/parasellar structures and craniovertebral junction showno significant abnormality on this nontargeted study. Subcutaneous T2 hyperintensity in frontal scalp, overlying nasal bridge inbilateral premaxillary regions, question prior cosmetic procedure.Correlate with history. IMPRESSION: 1. No acute intracranial abnormality. 2. Very few small T2 hyperintense foci in cerebral white matter,nonspecific, of doubtful clinical significance for patient's age. 3. Subcutaneous T2 hyperintensity in face and frontal scalp, questionprior cosmetic procedure. Correlate with history. If this radiology report contains a blank impression section, it is anincomplete radiology report. Please contact the interpreting radiologistor applicable radiology division as soon as possible to obtain thecompleted interpretation. Workstation ID: [id number] 5' 4.940 204 us Unknown Provider [facility] Final Resu lt * (ABNORMAL) MRI (MSK) PELVIS W AND WO CONTRAST (06/06/2024 9:29 AM EST) Incidental Findings Yes(A) [facility] Anatomical Region Laterality Modality Other 06/06/2024 9:29 AM EST Narrative 06/06/2024 9:29 AM EST INDICATION: ??To eval for inflammatory changes or abscess(es) in muscles . Recent history of pelvic abscess status post drainage on 05/29/2024. TECHNIQUE: Multiplanar, multisequence MRI of the pelvis was performed according to standard departmental protocol both with and without the uneventful administration of intravenous contrast. COMPARISON: CT abdomen pelvis study 06/01/2024. FINDINGS: Confluent T1 hypointense, T2 hyperintense bone marrow edema centered at the pubic symphysis extending to the superior and inferior pubic rami bilaterally. Small amount of fluid in the pubic symphysis. Diffuse edema involving the bilateral pectineus and adductor muscles with heterogenous postcontrast enhancement and few small peripherally enhancing intramuscular fluid collections, the largest one measuring 0.9 x 0.5 cm in the left adductor brevis muscle. No evidence of fractures. Patchy heterogeneous appearance of the bone marrow, likely related to red marrow reconversion. Mild bilateral hip osteoarthritis. Degenerative changes of the sacroiliac joints. Multilevel disc degeneration facet arthropathy of the lower lumbar spine. Mild diffuse fatty atrophy of the pelvic musculature. No drainable intrapelvic fluid collections. 0.9 x 0.9 cm proteinaceous cyst in the cervix, in keeping with nabothian cyst. Visualized neurovascular structures appears unremarkable. IMPRESSION: IMPRESSION: 1. ??Confluent bone marrow edema centered at the pubic symphysis is concerning for acute osteomyelitis. Small amount of fluid at the pubic symphysis is likely septic. 2. ??Edema involving the pectineus and adductor muscles, in keeping with myositis with small intramuscular abscesses, the largest within the left adductor brevis muscle. A(n) [place] actionable finding has been communicated to the ordering or responsible provider via the Witel system on 06/06/2024 9:29 AM. ??Receipt of this communication by the responsible provider will be documented in Witel upon receiving acknowledgement if applicable, Message ID [id number]. I, Eliazar Nieves, have reviewed the examination and concur with the findings as reported or so edited. Trainee: ??Rosa Maria Morales If this radiology report contains a blank impression section, it is an incomplete radiology report. ??Please contact the interpreting radiologist or applicable radiology division as soon as possible to obtain the completed interpretation. ? Workstation ID: [id number] 5' 4.488 151 Procedure Note [facility], Unknown Provider - 06/06/2024 INDICATION: To eval for inflammatory changes or abscess(es) in muscles .Recent history of pelvic abscess status post drainage on 05/29/2024. TECHNIQUE: Multiplanar, multisequence MRI of the pelvis was performedaccording to standard departmental protocol both with and without theuneventful administration of intravenous contrast. COMPARISON: CT abdomen pelvis study 06/01/2024. FINDINGS: Confluent T1 hypointense, T2 hyperintense bone marrow edema centered atthe pubic symphysis extending to the superior and inferior pubic ramibilaterally. Small amount of fluid in the pubic symphysis. Diffuse edema involving the bilateral pectineus and adductor muscles withheterogenous postcontrast enhancement and few small peripherally enhancingintramuscular fluid collections, the largest one measuring 0.9 x 0.5 cm inthe left adductor brevis muscle. No evidence of fractures. Patchy heterogeneous appearance of the bonemarrow, likely related to red marrow reconversion. Mild bilateral hiposteoarthritis. Degenerative changes of the sacroiliac joints. Multileveldisc degeneration facet arthropathy of the lower lumbar spine. Mild diffuse fatty atrophy of the pelvic musculature. No drainableintrapelvic fluid collections. 0.9 x 0.9 cm proteinaceous cyst in thecervix, in keeping with nabothian cyst. Visualized neurovascularstructures appears unremarkable. IMPRESSION: IMPRESSION: 1. Confluent bone marrow edema centered at the pubic symphysis isconcerning for acute osteomyelitis. Small amount of fluid at the pubicsymphysis is likely septic. 2. Edema involving the pectineus and adductor muscles, in keeping withmyositis with small intramuscular abscesses, the largest within the leftadductor brevis muscle. A(n) [place] actionable finding has been communicated to the ordering orresponsible provider via the Witel system on06/06/2024 9:29 AM. Receipt of this communication by the responsibleprovider will be documented in Witel upon receiving acknowledgement ifapplicable, Message ID [id number]. I, Eliazar Nieves, have reviewed the examination and concur with the findings asreported or so edited. Trainee: Rosa Maria Morales If this radiology report contains a blank impression section, it is anincomplete radiology report. Please contact the interpreting radiologistor applicable radiology division as soon as possible to obtain thecompleted interpretation. Workstation ID: [id number] 5' 4.488 151 us Unknown Provider [facility] Final Resu lt * (ABNORMAL) CT CHEST WITH CONTRAST (06/05/2024 1:18 PM EST) Incidental Findings Yes(A) [facility] Anatomical Region Laterality Modality Other 06/05/2024 1:18 PM EST Narrative 06/05/2024 1:18 PM EST Indication: ??r/o malignancies, Comparison: None Dose: For radiation dose control at least one of the following techniques was used in this procedure (1) Automated exposure control (2) Adjustment of the mA and/or kV according to patient size (3) Use of iterative reconstruction technique. Findings: Neck and thoracic inlet: No abnormality. Mediastinum and large vessels: ? Aorta No abnormality. Pulmonary arteries Unremarkable shape and diameter. Esophagus Normal esophagus. Other mediastinal findings No other abnormal mediastinal findings are present. Heart: Cardiac size Heart size is normal. Coronary arteries No visible coronary calcifications. Valves No valvular calcifications. Pericardium No abnormality. Lymph nodes: Supraclavicular and axillary Normal sized lymph nodes, no enlarged lymph nodes. Mediastinal Normal sized lymph nodes, no enlarged lymph nodes. Hilar Normal sized lymph nodes, no enlarged lymph nodes. Others None. Lung parenchyma: Biapical pleural-parenchymal scarring. ??Postsurgical changes status post left upper lobe wedge resection. ??Minimal soft tissue thickening in the left upper lobe adjacent to the suture margin along the mediastinal pleural surface. ??Several clustered nodular opacities in the left lower lobe (4:191) peribronchial distribution (4:148) Airways: No abnormality. Pleura: No abnormality. Upper abdomen: No adrenal nodules. ??No focal abnormality in the spleen. ??Low-density lesions in liver suggestive of cysts. Chest wall and bones: Mild degenerative change in the spine. IMPRESSION: Impression: Clustered nodular opacities in the left lower lobe favored to be infectious in etiology. ??Recommend repeat CT in 8 weeks to evaluate for complete resolution. Postsurgical changes status post wedge resection left upper lobe. ??Soft tissue thickening along the suture margin. ??Recommend correlation with prior studies attention on follow-up imaging. A(n) [place] actionable finding has been communicated to the ordering or responsible provider via the Witel system on 06/05/2024 1:18 PM. ??Receipt of this communication by the responsible provider will be documented in Game[employer]ic Findings upon receiving acknowledgement if applicable, Message ID [id number]. If this radiology report contains a blank impression section, it is an incomplete radiology report. ??Please contact the interpreting radiologist or applicable radiology division as soon as possible to obtain the completed interpretation. ? Workstation ID: [id number] Up-to-date CT equipment and radiation dose reduction techniques were employed. CTDIvol: 5.2 mGy. DLP: 154 mGy-cm. 5' 4.488 151 Procedure Note [facility], Unknown Provider - 06/05/2024 Indication: r/o malignancies, Comparison: None Dose: For radiation dose control at least one of the following techniqueswas used in this procedure (1) Automated exposure control (2) Adjustmentof the mA and/or kV according to patient size (3) Use of iterativereconstruction technique. Findings: Neck and thoracic inlet: No abnormality. Mediastinum and large vessels: Aorta No abnormality. Pulmonary arteries Unremarkable shape and diameter. Esophagus Normal esophagus. Other mediastinal findings No other abnormal mediastinal findings are present. Heart: Cardiac size Heart size is normal. Coronary arteries No visible coronary calcifications. Valves No valvular calcifications. Pericardium No abnormality. Lymph nodes: Supraclavicular and axillary Normal sized lymph nodes, no enlarged lymph nodes. Mediastinal Normal sized lymph nodes, no enlarged lymph nodes. Hilar Normal sized lymph nodes, no enlarged lymph nodes. Others None. Lung parenchyma: Biapical pleural-parenchymal scarring. Postsurgical changes status postleft upper lobe wedge resection. Minimal soft tissue thickening in theleft upper lobe adjacent to the suture margin along the mediastinalpleural surface. Several clustered nodular opacities in the left lower lobe (4:191) peribronchialdistribution (4:148) Airways: No abnormality. Pleura: No abnormality. Upper abdomen: No adrenal nodules. No focal abnormality in the spleen. Low-densitylesions in liver suggestive of cysts. Chest wall and bones: Mild degenerative change in the spine. IMPRESSION: Impression: Clustered nodular opacities in the left lower lobe favored to beinfectious in etiology. Recommend repeat CT in 8 weeks to evaluate forcomplete resolution. Postsurgical changes status post wedge resection left upper lobe. Softtissue thickening along the suture margin. Recommend correlation withprior studies attention on follow-up imaging. A(n) [place] actionable finding has been communicated to the ordering orresponsible provider via the Witel system on06/05/2024 1:18 PM. Receipt of this communication by the responsibleprovider will be documented in Witel upon receiving acknowledgement ifapplicable, Message ID [id number]. If this radiology report contains a blank impression section, it is anincomplete radiology report. Please contact the interpreting radiologistor applicable radiology division as soon as possible to obtain thecompleted interpretation. Workstation ID: [id number] Up-to-date CT equipment and radiation dose reduction techniques wereemployed. CTDIvol: 5.2 mGy. DLP: 154 mGy-cm. 5' 4.488 151 us Unknown Provider [facility] Final Resu lt * TRANSTHORACIC ECHO (TTE) BUBBLE STUDY (06/05/2024 10:55 AM EST) 06/05/2024 10:5 5 AM EST Narrative [facility] RAD - 06/05/2024 10:55 AM EST - ??Normal biventricular size and global systolic function. ??Estimated LVEF is 70%. ??No regional wall motion abnormalities. - ??Normal atrial size. - ??No significant valvular disease identified. - ??No interatrial shunt detected by color flow Doppler. No interatrial septal aneurysm. Unable to perform bubble study. Table formatting from the original result was not included. Images from the original result were not included. ?? [facility] Cardiac Ultrasound [address] [place] [address] Phone: ? Ashleigh Silveira ?? Procedures: ??Transthoracic Echo (TTE) Complete w/ Bubble Patient Patient : ??1960 (63 y.o.) Legal Sex: ??Female Height: ??1.638 m (5' 4.49 ) Weight: ??68.5 kg (151 lb) BSA: ??1.77 m? Blood Pressure: ??107/61 Accession Number: ??[id number] Date of Study: ??06/05/2024 Ordering Provider: ??Bin Fairchild MD Clinical Indications: ??Other, Recent bacteremia, unexplained neurological weakness ??Reading Physicians ??Performing Staff Cardiology: ??Julián Rivera MD Tech: ??Inga Serra [facility] Patient Class: Inpatient Prior Study ?? No prior study available for comparison. Interpretation Summary ??Result History is available. - ??Normal biventricular size and global systolic function. ??Estimated LVEF is 70%. ??No regional wall motion abnormalities. - ??Normal atrial size. - ??No significant valvular disease identified. - ??No interatrial shunt detected by color flow Doppler. No interatrial septal aneurysm. Unable to perform bubble study. Study Findings ?? Left Ventricle The left ventricle size is normal. Normal left ventricular wall thickness. Left ventricular mass index is normal. Normal left ventricular wall motion. Normal left ventricular systolic function with estimated LVEF 70% by Campa?s biplane method of disc. Estimated left ventricular filling pressure is normal. Aorta The sinuses of Valsalva and ascending aorta are normal. Left Atrium Left atrium size is normal. Left atrium volume index is 27 mL/m2. Ventricular Septum Normal septal motion. Atrial Septum No interatrial shunt detected by color flow Doppler. No interatrial septal aneurysm. Right Ventricle Right ventricle size is normal. Normal right ventricular systolic function. TAPSE is normal (>=1.7 cm). Tissue Doppler peak systolic velocity is normal (>9.5 cm/s). Pulmonary Artery TR jet was inadequate to estimate pulmonary artery pressure. Right Atrium Right atrium is normal in size. RA volume index is 13.80 mL/m2. IVC/SVC IVC diameter is less than or equal to 21 mm and decreases greater than 50% during inspiration; therefore the estimated right atrial pressure is normal ( R 3 mmHg). Aortic Valve There is a normal aortic valve. No aortic regurgitation. No aortic stenosis. Mitral Valve Mitral valve structure is normal. Moderate systolic anterior motion of the mitral chordae. Trace mitral regurgitation. No mitral stenosis. Tricuspid Valve Tricuspid valve structure is normal. Mild tricuspid regurgitation. No tricuspid stenosis. Pulmonic Valve Pulmonic valve structure is normal. No pulmonic regurgitation. No pulmonic stenosis. Pericardium No pericardial effusion. Pediatric/Congenital Measurements ?? Measurement Z-score Normal Range Aortic Valve Diam 1.8 cm ?(cm) Ascending aorta 3.3 cm ?(cm) LV ED Dimension 4.00 ? LV ED Post Wall 1.00 ? LV ES Dimension 3.00 ? Data set: [place] Z-score normal range: +/-2 BSA formula: Haycock 2D Measurements ?? Dimensions LVIDD 4 cm LVIDS 3 cm IVS 0.9 cm PW 1 cm EF 2D 70 % LV Diastolic Volume 74 mL LV Diastolic Volume Index 42 mL/m2 LV Systolic Volume 18 mL LV Systolic Volume Index 10 mL/m2 LA size 3.1 cm LA volume 48 mL LA Volume Index 27 mL/m2 LA Volume Index 27 mL/m2 LV Mass Index 67 g/m2 Global longitudinal strain -18.2 ?? Relative Wall Thickness 0.5 ?? LV GLS A4C -20 ?? LV GLS A2C -17 ?? LV GLS A3C -12 ?? Aortic Root - End Diastolic Sinus 3.5 cm Aortic Root Z-score 1.29 ?? Ascending aorta 3.3 cm Ao-asc Z score 1.13 ?? Inferior Vena Cava RIGHT ATRIAL PRESSURE 3 mmHg ?? Doppler Measurements - Right Ventricle ?? Dimensions TAPSE 1.5 cm ?? Doppler Measurements - Aortic Valve ?? Stenosis LVOT diameter 1.8 cm LVOT area 2.54 cm2 ? Doppler Measurements - Mitral Valve ?? PISA-MS MV Peak E Zuly 0.56 m/s ? Doppler Measurements - Diastolic Filling ?? Diastolic Filling E/A ratio 0.9 ?? Septal e' 0.09 m/s Lateral e' 0.12 m/s E wave deceleration time 187 msec MV Peak A Zuly 0.64 m/s Signed ?? at 1055 EST Linked Charges ?? Charge Code Link Type Charge Type Modifiers Echo Heart Xthoracic,Complete W Doppler 49353 Automatic Professional 26 Echo 2d W/Doppler/Color Flow [[id number]] 45963 Automatic Technical ?? Echo Heart Xthoracic,Complete W Doppler 10167 Automatic Global ?? [place] Myocardial Strain Img Using Speckle Trck-Drvd Ass Myocrd Mechanics 96679 Context Professional ?? 3d Rendering W/Interp ??T ??Postprocess Supervision 48288 Context Professional 26 Procedure Note [facility], Unknown Provider - 06/05/2024 - Normal biventricular size and global systolic function. Estimated LVEFis 70%. No regional wall motion abnormalities. - Normal atrial size. - No significant valvular disease identified. - No interatrial shunt detected by color flow Doppler. No interatrialseptal aneurysm. Unable to perform bubble study. Table formatting from the original result was not included. Images from the original result were not included. [facility] Cardiac Ultrasound [address] [facility] [address] Phone: HeidebereAshleigh mcguire Procedures: Transthoracic Echo (TTE) Complete w/ Bubble Patient Patient : 1960 (63 y.o.) Legal Sex: Female Height: 1.638 m (5' 4.49 ) Weight: 68.5 kg (151 lb) BSA: 1.77 m? Blood Pressure: 107/61 Accession Number: [id number] Date of Study: 06/05/2024 Ordering Provider: Bin Fairchild MD Clinical Indications: Other, Recent bacteremia, unexplained neurologicalweakness Reading Physicians Performing Staff Cardiology: Julián Rivera MD Tech: Inga Serra RDCS Patient Class: Inpatient Prior Study No prior study available for comparison. Interpretation Summary Result History is available. - Normal biventricular size and global systolic function. Estimated LVEFis 70%. No regional wall motion abnormalities. - Normal atrial size. - No significant valvular disease identified. - No interatrial shunt detected by color flow Doppler. No interatrialseptal aneurysm. Unable to perform bubble study. Study Findings Left Ventricle The left ventricle size is normal. Normal left ventricularwall thickness. Left ventricular mass index is normal. Normal leftventricular wall motion. Normal left ventricular systolic function withestimated LVEF 70% by Campa?s biplane method of disc. Estimated left ventricular filling pressure is normal. Aorta The sinuses of Valsalva and ascending aorta are normal. Left Atrium Left atrium size is normal. Left atrium volume index is 27mL/m2. Ventricular Septum Normal septal motion. Atrial Septum No interatrial shunt detected by color flow Doppler. Nointeratrial septal aneurysm. Right Ventricle Right ventricle size is normal. Normal right ventricularsystolic function. TAPSE is normal (>=1.7 cm). Tissue Doppler peaksystolic velocity is normal (>9.5 cm/s). Pulmonary Artery TR jet was inadequate to estimate pulmonary arterypressure. Right Atrium Right atrium is normal in size. RA volume index is 13.80mL/m2. IVC/SVC IVC diameter is less than or equal to 21 mm and decreases greaterthan 50% during inspiration; therefore the estimated right atrial pressureis normal ( R 3 mmHg). Aortic Valve There is a normal aortic valve. No aortic regurgitation. Noaortic stenosis. Mitral Valve Mitral valve structure is normal. Moderate systolic anteriormotion of the mitral chordae. Trace mitral regurgitation. No mitralstenosis. Tricuspid Valve Tricuspid valve structure is normal. Mild tricuspidregurgitation. No tricuspid stenosis. Pulmonic Valve Pulmonic valve structure is normal. No pulmonicregurgitation. No pulmonic stenosis. Pericardium No pericardial effusion. Pediatric/Congenital Measurements Measurement Z-score Normal Range Aortic Valve Diam 1.8 cm (cm) Ascending aorta 3.3 cm (cm) LV ED Dimension 4.00 LV ED Post Wall 1.00 LV ES Dimension 3.00 Data set: [place] Z-score normal range: +/-2 BSA formula: Haycock 2D Measurements Dimensions LVIDD 4 cm LVIDS 3 cm IVS 0.9 cm PW 1 cm EF 2D 70 % LV Diastolic Volume 74 mL LV Diastolic Volume Index 42 mL/m2 LV Systolic Volume 18 mL LV Systolic Volume Index 10 mL/m2 LA size 3.1 cm LA volume 48 mL LA Volume Index 27 mL/m2 LA Volume Index 27 mL/m2 LV Mass Index 67 g/m2 Global longitudinal strain -18.2 Relative Wall Thickness 0.5 LV GLS A4C -20 LV GLS A2C -17 LV GLS A3C -12 Aortic Root - End Diastolic Sinus 3.5 cm Aortic Root Z-score 1.29 Ascending aorta 3.3 cm Ao-asc Z score 1.13 Inferior Vena Cava RIGHT ATRIAL PRESSURE 3 mmHg Doppler Measurements - Right Ventricle Dimensions TAPSE 1.5 cm Doppler Measurements - Aortic Valve Stenosis LVOT diameter 1.8 cm LVOT area 2.54 cm2 Doppler Measurements - Mitral Valve PISA-MS MV Peak E Zuly 0.56 m/s Doppler Measurements - Diastolic Filling Diastolic Filling E/A ratio 0.9 Septal e' 0.09 m/s Lateral e' 0.12 m/s E wave deceleration time 187 msec MV Peak A Zuly 0.64 m/s Signed at 1055 EST Linked Charges Charge Code Link Type Charge Type Modifiers Echo Heart Xthoracic,Complete W Doppler 23947 Automatic Professional 26 HC Echo 2d W/Doppler/Color Flow [[id number]] 22127 Automatic Technical Echo Heart Xthoracic,Complete W Doppler 59694 Automatic Global [place] Myocardial Strain Img Using Speckle Trck-Drvd Ass Myocrd Aafqtryct65563 Context Professional 3d Rendering W/Interp T Postprocess Supervision 13733 ContextProfessional 26 us Unknown Provider [facility] CARDIOVASCULAR-NO INBASKET RTG Final Result [facility] [employer] app [address] [place] [address] * MYELOPROLIFERATIVE NEOPLASMS (MPN) CORE DIAGNOSTIC PANEL (06/05/2024 3:49 AM EST) SPECIMENS Specimen Number: [id number] Specimen Type: Blood Specimen Source: Venous, Peripheral Linked Case: N/A Collection/Procedure Date: 06/05/2024 Specimen Description: N/A [facility] JAK2 gene.p.V617F Not Detected Not Detected, See Comments [facility] CALR MUTATION (EXON 9) Not Detected Not Detected, See Comments [facility] JAK2 gene exon 12 mutation analysis Not Detected Not Detected, See Comments [facility] MPL gene.p.W515L+W51 5K+[id number] Not Detected Not Detected, See Comments [facility] INTERPRETATION A negative result does NOT exclude [...] in the context of other clinical findings. [facility] CLINICAL HISTORY Obturator Abcess, unknown etiology [facility] TEST DESCRIPTION Intended Use: The ION Ampliseq [...] bead. Sequencing template was loaded onto an [employer] PGAxentra next generation sequencer and data was analyzed using [employer] Variant Caller and Verbling Next Gene software packages using BUDq44_0 (Anatoly HG19) as the reference sequence. ION Ampliseq Custom Panel JAK2(V617F) [id number] MPL ??CALR Contact lab for detail of gene exon/hotspot codons covered in the assay. DNA sequences used as references for this panel of genes can be found at: http://www.ncbi.nlm. nih.gov/refseq/rsg/ The mutation nomenclature is based on the convention recommended by the Human Genome Variation Society (http://www.hgvs.org /mutnomen/). Line Inspector: When appropriate multiplex PCR amplification of 5 [...] is >500X. When appropriate, mutations detected by Elevate HRt sequencing were confirmed as follows. Patient DNA was analyzed using real time PCR. Specific primer sets were used to amplify the gene region of interest and PCR the amplicons were digested with ExoSAP. DNA products were purified from the [place] sequencing reaction and analyzed using capillary gel [...] variant when testing the tumor component alone. [facility] REFERENCES 1. Meg et al. COSMIC: mining complete cancer genomes in the Catalogue of Somatic Mutations in Cancer (COSMIC) Nucleic Acids Research, 2011; 39:945-50. COSMIC Website:http://cance r.jermaine.ac.uk/cosmi c 2. Ramona STOUT et al. dbSNP: the NCBI database of genetic variation. Nucleic Acids Res. 2000Apr 25;29(1):308-11. Available from: http://www.ncbi.nlm. nih.gov/SNP/ 3. Zuri Guzman et al. Mutaional landscape and significance across 12 major cancer types. Nature, 2013; 502:333-339. 4. Rubi LORENZO et al. Cancer Genome Network. Genomic and Epigenomic Landscapes of Adult De Tu Acute Myeloid Leukemia. ??N Engl J Med 2013;368:2059-74. 5. Vianca A, Chirs TL, Tiffanie CM, et al. CALR vs JAK2 vs MPL-mutated or triple-negative myelofibrosis: clinical, cytogenetic and molecular comparisons. Leukemia. 2014 Azeem;28(7):1472-7. doi: 10.1038/keiry.2014.3. [facility] ASR DISCLAIMER These tests were developed and [...] other gene mutations not included in the Your Style [employer] Myeloid Custom Panel v3. False positive or negative results may occur for reasons that include blood transfusions, a somatic mutation or single nucleotide polymorphism (SNP) at or near the primer binding sites or involvement of a target gene in a chromosome translocation. Moreover, negative results do not preclude the presence of mutations below detection limits of the assay. [facility] SIGNATURE . [facility] 06/05/2024 3:49 AM EST us Unknown Provider [facility] LABORATORY Final Resu lt Performing Organization Address City/[facility]/ZIP Co de Phone Number [facility] [employer] ONE [address] [place] [phone] * IMMUNOGLOBULINS PANEL (IGG, IGA, IGM) (06/05/2024 3:49 AM EST) IgA 164 70 - 320 mg/dL [facility] IgG 1474 600 - 1540 mg/dL [facility] IgM 176 50 - 300 mg/dL [facility] 06/05/2024 3:49 AM EST Narrative [facility] - 06/05/2024 5:11 PM EST [facility] Received Date:[id number] us Unknown Provider [facility] LABORATORY Final Resu lt Performing Organization Address City/[facility]/ZIP Co de Phone Number [facility] [employer] [address] [place] [phone] * FOLATE (06/05/2024 3:49 AM EST) Folate 15.5 4.8 - 24.2 ng/mL [facility] 06/05/2024 3:49 AM EST us Unknown Provider [facility] LABORATORY Final Resu lt Performing Organization Address City/[facility]/ZIP Co de Phone Number [facility] Independent IP [employer] [address] [place] [phone] * (ABNORMAL) VITAMIN B12 (06/05/2024 3:49 AM EST) Vitamin B12 (Cobalamins) 1,249(H) 232 - 1,245 pg/mL [facility] 06/05/2024 3:49 AM EST us Unknown Provider [facility] LABORATORY Final Resu lt Performing Organization Address [facility]/ZIP Co de Phone Number [facility] Independent IP [employer] [address] [place] [address] * LACTIC ACID, PLASMA (06/04/2024 10:41 PM EST) Lactate 1.1 0.5 - 1.9 mmol/L [facility] Comment: Sepsis Screening: Initial Lactate Level >2.0 mmol/L - Repeat Lactate Level within 3 hours. Initial Lactate Level >4.0 mmol/L - Repeat Lactate Level within 3 hours, Initiate Septic Shock Protocol. 06/04/2024 10:4 1 PM EST us Unknown Provider [facility] LABORATORY Final Resu lt Performing Organization Address [facility] Co de Phone Number [facility] Independent IP [employer] [address] [place] [address]184 * TYPE AND SCREEN (06/04/2024 10:37 PM EST) Only the most recent of2 resultswithin the time period is included. ABO BLOOD TYPE O [facility] RH TYPE Positive [facility] EXPIRATION DATE/TIME 2024-06-07 23:59 [facility] ANTIBODY SCREEN Negative [facility] 06/04/2024 10:3 7 PM EST us Unknown Provider [facility] LABORATORY Edited Res ult - Final Performing Organization Address [facility]/ZIP Co de Phone Number [facility] Independent IP [employer] [address] [place] [address] * VON WILLEBRAND FACTOR ANTIGEN (06/04/2024 11:04 AM EST) von Willebrand factor Ag actual/Normal (Platelet Poor Plasma) 111 50 - 217 % [facility] 06/04/2024 11:0 4 AM EST Narrative [facility] - 06/06/2024 1:04 PM EST [facility] Received Date:[id number] us Unknown Provider [facility] LABORATORY Final Resu lt Performing Organization Address City/[facility]/ZIP Co de Phone Number [employer] [address] [place] [address] * FACTOR 8 RISTOCETIN COFACTOR (06/04/2024 11:04 AM EST) von Willebrand factor.ristocet in cofactor activity actual/Normal (Platelet Poor Plasma) 68 42 - 200 % normal [facility] 06/04/2024 11:0 4 AM EST Narrative [facility] - 06/07/2024 3:08 PM EST [facility] Received Date: us Unknown Provider [facility] LABORATORY Final Resu lt [employer] [address] [place] [address] * (ABNORMAL) MANUAL DIFFERENTIAL (06/04/2024 9:57 AM EST) Only the most recent of2 resultswithin the time period is included. Neutrophils.seg mented/100 leukocytes 67 % [facility] Band Neutrophils % 1 0 - 7 % [facility] Lymphocytes % 18 % [facility] Monocytes % 9 % [facility] Eosinophils % 0 % [facility] Basophils % 1 % [facility] Atypical Lymphocytes % 4 0 - 6 % [facility] Neutrophils 6.94 1.50 - 7.80 10*3/uL [facility] BANDS #, MANUAL 0.10 10*3/uL [facility] TOTAL LYMPH #, MANUAL 2.24 0.85 - 3.90 10*3/uL [facility] Monocytes 0.92 0.20 - 0.95 10*3/uL [facility] Eosinophils 0.00(L) 0.02 - 0.50 10*3/uL [facility] Basophils 0.10 0.00 - 0.20 10*3/uL [facility] REACTIVE LYMPHOCYTES # 0.41 10*3/uL [facility] Platelet morphology finding Increased( A) Adequate [facility] Erythrocyte morphology finding Normal Normal, No clinically significant RBC morphology present (IC [facility] Cells counted.total 114 [facility] 06/04/2024 9:57 AM EST us Unknown Provider [facility] LABORATORY Final Resu lt Performing Organization Address [facility] de Phone Number [facility] Independent IP [employer] [address] [place] [address] * W[employer] TE[employer]ER ANTIBODY (06/04/2024 3:44 AM EST) Ribonucleoprotein extractable nuclear Ab <1.0 NEG <1.0 NEG AI [facility] 06/04/2024 3:44 AM EST Narrative [facility] - 06/07/2024 7:07 AM EST [facility] Received Date:[id number] us Unknown Provider [facility] LABORATORY Final Resu lt Performing Organization Address [facility] de Phone Number [facility] Independent IP [employer] [address] [place] [address] * MORENO (SM) ANTIBODY (06/04/2024 3:44 AM EST) Moreno extractable nuclear Ab <1.0 NEG <1.0 NEG AI [facility] 06/04/2024 3:44 AM EST Narrative [facility] - 06/04/2024 2:23 PM EST [facility] Received Date:[id number] us Unknown Provider [facility] LABORATORY Final Resu lt Performing Organization Address [facility] de Phone Number [facility] Independent IP [employer] [address] [place] [address] * DNA ANTIBODY, DOUBLE-STRANDED (06/04/2024 3:44 AM EST) Dna (DS) Antibody <1 IU/mL [facility] Comment: ? IU/mL ? Interpretation ? < or = 4 ?Negative ? 5-9 ? Indeterminate ? > or = 10 ?? Positive 06/04/2024 3:44 AM EST Narrative [facility] - 06/07/2024 7:07 AM EST [facility] Received Date:[id number] us Unknown Provider [facility] LABORATORY Final Resu lt Performing Organization Address [facility] Co de Phone Number [facility] Independent IP [employer] [address] [place] [address] * COMPLEMENT C4 (06/04/2024 3:44 AM EST) C4 Complement 42 15 - 57 mg/dL [facility] 06/04/2024 3:44 AM EST Narrative [facility] - 06/05/2024 2:15 PM EST [facility] Received Date:[id number] us Unknown Provider [facility] LABORATORY Final Resu lt Performing Organization Address [facility] de Phone Number [facility] Independent IP [employer] [address] [place] [phone] * (ABNORMAL) COMPLEMENT C3 (06/04/2024 3:44 AM EST) C3 Complement 248(H) 83 - 193 mg/dL [facility] 06/04/2024 3:44 AM EST Narrative [facility] - 06/05/2024 2:15 PM EST [facility] Received Date:[id number] us Unknown Provider [facility] LABORATORY Final Resu lt Performing Organization Address [facility] de Phone Number [facility] Independent IP [employer] [address] [place] [address] * AMADOU SCREEN, IFA, W/REFLEX TO TITER & PATTERN (06/04/2024 3:44 AM EST) AMADOU IFA NEGATIVE NEGATIVE [facility] Comment: AMADOU IFA is a first line [...] AC-0: Negative International Consensus on AMADOU Patterns (https://doi.org/10.1515/iyyv-5829-1195) For additional information, please refer to http://education.[employer]/faq/URK105 (This link is being provided for informational/ educational purposes only.) ?? 06/04/2024 3:44 AM EST Narrative [facility] - 06/08/2024 9:35 AM EST [facility] Received Date: us Unknown Provider [facility] LABORATORY Final Resu lt Performing Organization Address [facility] Co de Phone Number [facility] [employer] [address] [place] [phone] * (ABNORMAL) IRON SATURATION (06/04/2024 3:44 AM EST) Iron saturation 11(L) 20 - 50 % [facility] Iron 26(L) 30 - 160 ug/dL [facility] Transferrin 192(L) 200 - 360 mg/dL [facility] TOTAL IRON BINDING CAPACITY 240(L) 255 - 450 ug/dL [facility] 06/04/2024 3:44 AM EST us Unknown Provider [facility] LABORATORY Final Resu lt Performing Organization Address City/[facility]/ZIP Co de Phone Number [facility] [employer] [address] [place] [address] * (ABNORMAL) FERRITIN (06/04/2024 3:44 AM EST) Ferritin 451.0(H) 11.0 - 306.0 ng/mL [facility] 06/04/2024 3:44 AM EST us Unknown Provider [facility] LABORATORY Final Resu lt Performing Organization Address City/[facility]/ZIP Co de Phone Number [facility] [employer] ONE [address] [place] [address] * (ABNORMAL) VITAMIN D 1,25 DIHYDROXY (06/04/2024 3:44 AM EST) 1,25-Dihydroxyvitami n D 17(L) 18 - 72 pg/mL [facility] Vitamin D3,1, 25(OH)2 17 pg/mL [facility] Vitamin D2, 1,25 (OH)2 <8 pg/mL [facility] Comment: Vitamin D3, 1,25(OH)2 indicates both endogenous production and supplementation. Vitamin D2, 1,25(OH)2 is an indicator of exogenous sources, such as diet or supplementation. ??Interpretation and therapy are based on measurement of Vitamin D,1,25(OH)2, Total. This test was developed and its analytical performance characteristics have been determined by [employer] [place], [place], [place]. It has not been cleared or approved by the FDA. This assay has been validated pursuant to the CLIA regulations and is used for clinical purposes. 06/04/2024 3:44 AM EST Narrative [facility] - 06/07/2024 5:16 PM EST [facility] Received Date:[id number] us Unknown Provider [facility] LABORATORY Final Resu lt Performing Organization Address [facility] Co de Phone Number [facility] [employer] ONE [address] [place] [phone] * ALDOLASE (06/04/2024 3:44 AM EST) Aldolase 4.7 <=8.1 U/L [facility] 06/04/2024 3:44 AM EST Narrative [facility] - 06/08/2024 2:58 AM EST [facility] Received Date:[id number] us Unknown Provider [facility] LABORATORY Final Resu lt Performing Organization Address [facility]/ZIP Co de Phone Number [facility] Independent IP [employer] [address] [place] [phone] * (ABNORMAL) HEPATIC FUNCTION PANEL (06/04/2024 3:44 AM EST) Protein Total (Serum) 8.2(H) 6.0 - 8.0 g/dL [facility] Albumin 3.7 3.5 - 5.2 g/dL [facility] GLOBULIN, TOTAL 4.5(H) 2.1 - 4.2 g/dL [facility] Bilirubin Total 0.4 0.2 - 1.2 mg/dL [facility] Bilirubin Direct 0.2 <=0.4 mg/dL [facility] Alkaline phosphatase 163(H) 35 - 129 U/L [facility] AST (SGOT) 22 10 - 40 U/L [facility] ALT (SGPT) 12 10 - 40 U/L [facility] BILIRUBIN, INDIRECT 0.20 <=0.70 mg/dL [facility] A/G RATIO 0.8(L) 1.5 - 3.0 [facility] 06/04/2024 3:44 AM EST us Unknown Provider [facility] LABORATORY Final Resu lt [facility] [employer] [address] [place] [address] * PARANEOPLASTIC ANTIBODY EVALUATION W/REFLEX TO TITER AND LINE BLOT, BASIC (06/04/2024 3:44 AM EST) Pathologist [facility] Paraneoplastic Ab SEE NOTE [facility] Comment: Staining of HEp2 cells suggests nuclear non-neuronal specific antibodies are present. ?? No fluorescence observed on neuronal tissue. Neuronal nuclear type 1 Ab NEGATIVE NEGATIVE [facility] Neuronal nuclear type 2 Ab NEGATIVE NEGATIVE [facility] Neuronal nuclear type 3 Ab NEGATIVE NEGATIVE [facility] PCA1 (YO) AB, IFA NEGATIVE NEGATIVE [facility] PCA2 AB, IFA NEGATIVE NEGATIVE [facility] DIE TURNER TR (DNER) AB, IFA NEGATIVE NEGATIVE [facility] AGNA/SOX1 AB, IFA NEGATIVE NEGATIVE [facility] Amphiphysin Ab NEGATIVE NEGATIVE [facility] CRMP5/CV2 AB, IFA NEGATIVE NEGATIVE [facility] Comment: The absence of detectable anti-neuronal autoantibodies in this test does not exclude an idiopathic or paraneoplastic autoimmune neurological disorder. Additional testing, including cell-based assays for antibodies to surface antigens, may be indicated. Testing using both CSF and serum increases sensitivity for detection. For additional information, please refer to [email or web address].[email or web address] (Listn)/zkd302 (This link is being provided for informational/educational purposes only.) This test was developed and its analytical performance characteristics have been determined by [employer]. It has not been cleared or approved by FDA. This assay has been validated pursuant to the CLIA regulations and is used for clinical purposes. Striated Muscle AB NEGATIVE NEGATIVE [facility] Comment: This test was developed and its analytical performance characteristics have been determined by [employer]. It has not been cleared or approved by FDA. This assay has been validated pursuant to the CLIA regulations and is used for clinical purposes. Voltage-Gated Calcium Channel Ab <30 <30 pmol/L [facility] Voltage-gated potassium channel Ab <80 <80 pmol/L [facility] Comment: This test was developed and its analytical performance characteristics have been determined by [employer]. It has not been cleared or approved by FDA. This assay has been validated pursuant to the CLIA regulations and is used for clinical purposes. Acetylcholine receptor ganglionic neuronal Ab <55 <55 pmol/L [facility] Comment: Reference Ranges for Acetylcholine Receptor Ganglionic Antibody: Negative: ?? <55 pmol/L Borderline: 55-160 pmol/L Positive: ?? >160 pmol/L This test was developed and its analytical performance characteristics have been determined by [employer]. It has not been cleared or approved by FDA. This assay has been validated pursuant to the CLIA regulations and is used for clinical purposes. Voltage-gated calcium channel N type binding Ab <54 <54 pmol/L [facility] Comment: This test was developed and its analytical performance characteristics have been determined by [employer]. It has not been cleared or approved by FDA. This assay has been validated pursuant to the CLIA regulations and is used for clinical purposes. Acetylcholine Receptor Binding AB <0.30 nmol/L [facility] Comment: Reference Ranges for Acetylcholine Receptor ??Binding Antibody: Negative: < or =0.30 nmol/L Equivocal: ??0.31-0.49 nmol/L Positive: > or =0.50 nmol/L 06/04/2024 3:44 AM EST Narrative [facility] - 06/14/2024 3:40 AM EST [facility] Received Date:[id number] us Unknown Provider [facility] LABORATORY Final Resu lt Performing Organization Address [facility] Co de Phone Number [facility] [employer] ONE [address] [place] [phone] * RHEUMATOID FACTOR (06/03/2024 6:19 PM EST) Rheumatoid Factor (Quant) <10 <14 IU/mL [facility] 06/03/2024 6:19 PM EST Narrative [facility] - 06/04/2024 5:10 PM EST [facility] Received Date:[id number] us Unknown Provider [facility] LABORATORY Final Resu lt Performing Organization Address [facility] Phone Number [facility] [employer] ONE [address] [place] [address] * LACTATE DEHYDROGENASE (06/03/2024 6:19 PM EST) Lactate dehydrogenase 188 135 - 225 U/L [facility] 06/03/2024 6:19 PM EST us Unknown Provider [facility] LABORATORY Final Resu lt Performing Organization Address [facility] de Phone Number [facility] [employer] [address] [place] [address] * MRI THORACIC SPINE W WO CONTRAST (06/03/2024 2:11 PM EST) Anatomical Region Laterality Modality Other 06/03/2024 2:11 PM EST Narrative 06/03/2024 2:11 PM EST EXAMINATION: MRI of cervical spine and thoracic without and with contrast PHARMACEUTICAL: 0.1 mmol/kg of Gadolinium administered intravenously. TECHNIQUE: Multiplanar and multisequence MR imaging of cervical spine and thoracic performed prior to and following intravenous administration of Gadolinium. Sequences obtained include, Sagittal plane: T1, T2 and STIR Axial plane: T2 and gradient Post gadolinium sequences: T1 in sagittal and axial plane. CLINICAL INFORMATION: Unexplained hyperreflexia and proximal muscle weakness in patient with recent bacteremia COMPARISON: ??None IMPRESSION: Degraded study by motion artifact. There is [...] identified. The vertebral body heights are preserved. ??Degenerative signal through the posterior-superior aspect of the C6 vertebral body. Given the limitation of the study the visualized spinal cord appears unremarkable. No abnormal enhancement. There is loss of intervertebral disc height and signal at multiple levels in keeping with disc degeneration. The visualized prevertebral and paraspinal soft tissues are unremarkable. At C2-C3, no neural foraminal or spinal canal stenosis.. At C3-C4,uncovertebral joint and facet arthropathy resulting in mild left neural foraminal narrowing. No spinal canal stenosis. At C4-C5, shallow disc herniation, bilateral facet arthropathy without significant neural foraminal or spinal canal stenosis. At C5-C6, grade 1 anterolisthesis of C5 on C6, no significant neural foraminal narrowing. Mild spinal canal stenosis. At C6-C7, uncovertebral joint and facet arthropathy resulting in moderate to severe left neural foraminal narrowing. No significant spinal canal stenosis. At C7-T1, no significant neural foraminal or spinal canal stenosis. No significant neural foraminal or spinal canal stenosis at thoracic levels. IMPRESSION: Evaluation is degraded by motion artifact on multiple sequences. 1. ??Multilevel multifactorial degenerative changes most pronounced at C5-C6 and C6-C7 levels where there is up to moderate to severe left neural foraminal narrowing and mild spinal canal stenosis. 2. ??No significant neural foraminal or spinal canal stenosis at thoracic levels. 3. ??No abnormal signal or postcontrast enhancement through the spinal cord. I, Hollis French, have reviewed the examination and concur with the findings as reported or so edited. Trainee: ??Salome Pineda If this radiology report contains a blank impression section, it is an incomplete radiology report. ??Please contact the interpreting radiologist or applicable radiology division as soon as possible to obtain the completed interpretation. ? Workstation ID: [id number] 5' 4.5 151.02 Procedure Note [facility], Unknown Provider - 06/03/2024 EXAMINATION: MRI of cervical spine and thoracic without and withcontrast PHARMACEUTICAL: 0.1 mmol/kg of Gadolinium administered intravenously. TECHNIQUE: Multiplanar and multisequence MR imaging of cervical spine and thoracicperformed prior to and following intravenous administration ofGadolinium. Sequences obtained include, Sagittal plane: T1, T2 and STIR Axial plane: T2 and gradient Post gadolinium sequences: T1 in sagittal and axial plane. CLINICAL INFORMATION: Unexplained hyperreflexia and proximal muscleweakness in patient with recent bacteremia COMPARISON: None IMPRESSION: Degraded study by motion artifact. There is straightening of cervical lordosis, could be positional. Thealignment of the cervical spine is otherwise preserved. Diffuse low [id number] intensity is present of osseous structures. This is nonspecific,possibly representing rebound red marrow in the setting of chronic anemia. Other diffuse infiltrative bone marrowprocesses may potentially have a similar appearance. No bone marrow signalabnormality is identified. The vertebral body heights are preserved. Degenerative signal through theposterior-superior aspect of the C6 vertebral body. Given the limitation of the study the visualized spinal cord appearsunremarkable. No abnormal enhancement. There is loss of intervertebral disc height and signal at multiple levelsin keeping with disc degeneration. The visualized prevertebral and paraspinal soft tissues areunremarkable. At C2-C3, no neural foraminal or spinal canal stenosis.. At C3-C4,uncovertebral joint and facet arthropathy resulting in mild leftneural foraminal narrowing. No spinal canal stenosis. At C4-C5, shallow disc herniation, bilateral facet arthropathy withoutsignificant neural foraminal or spinal canal stenosis. At C5-C6, grade 1 anterolisthesis of C5 on C6, no significant neuralforaminal narrowing. Mild spinal canal stenosis. At C6-C7, uncovertebral joint and facet arthropathy resulting in moderateto severe left neural foraminal narrowing. No significant spinal canalstenosis. At C7-T1, no significant neural foraminal or spinal canal stenosis. No significant neural foraminal or spinal canal stenosis at thoraciclevels. IMPRESSION: Evaluation is degraded by motion artifact on multiple sequences. 1. Multilevel multifactorial degenerative changes most pronounced atC5-C6 and C6-C7 levels where there is up to moderate to severe left neuralforaminal narrowing and mild spinal canal stenosis. 2. No significant neural foraminal or spinal canal stenosis at thoraciclevels. 3. No abnormal signal or postcontrast enhancement through the spinalcord. I, Hollis French, have reviewed the examination and concur with the findingsas reported or so edited. Trainee: Salome Pineda If this radiology report contains a blank impression section, it is anincomplete radiology report. Please contact the interpreting radiologistor applicable radiology division as soon as possible to obtain thecompleted interpretation. Workstation ID: [id number] 5' 4.5 151.02 us Unknown Provider [facility] Final Resu lt * MRI CERVICAL SPINE W WO CONTRAST (06/03/2024 2:11 PM EST) Anatomical Region Laterality Modality Other 06/03/2024 2:11 PM EST Narrative 06/03/2024 2:11 PM EST EXAMINATION: MRI of cervical spine and thoracic without and with contrast PHARMACEUTICAL: 0.1 mmol/kg of Gadolinium administered intravenously. TECHNIQUE: Multiplanar and multisequence MR imaging of cervical spine and thoracic performed prior to and following intravenous administration of Gadolinium. Sequences obtained include, Sagittal plane: T1, T2 and STIR Axial plane: T2 and gradient Post gadolinium sequences: T1 in sagittal and axial plane. CLINICAL INFORMATION: Unexplained hyperreflexia and proximal muscle weakness in patient with recent bacteremia COMPARISON: ??None IMPRESSION: Degraded study by motion artifact. There is [...] identified. The vertebral body heights are preserved. ??Degenerative signal through the posterior-superior aspect of the C6 vertebral body. Given the limitation of the study the visualized spinal cord appears unremarkable. No abnormal enhancement. There is loss of intervertebral disc height and signal at multiple levels in keeping with disc degeneration. The visualized prevertebral and paraspinal soft tissues are unremarkable. At C2-C3, no neural foraminal or spinal canal stenosis.. At C3-C4,uncovertebral joint and facet arthropathy resulting in mild left neural foraminal narrowing. No spinal canal stenosis. At C4-C5, shallow disc herniation, bilateral facet arthropathy without significant neural foraminal or spinal canal stenosis. At C5-C6, grade 1 anterolisthesis of C5 on C6, no significant neural foraminal narrowing. Mild spinal canal stenosis. At C6-C7, uncovertebral joint and facet arthropathy resulting in moderate to severe left neural foraminal narrowing. No significant spinal canal stenosis. At C7-T1, no significant neural foraminal or spinal canal stenosis. No significant neural foraminal or spinal canal stenosis at thoracic levels. IMPRESSION: Evaluation is degraded by motion artifact on multiple sequences. 1. ??Multilevel multifactorial degenerative changes most pronounced at C5-C6 and C6-C7 levels where there is up to moderate to severe left neural foraminal narrowing and mild spinal canal stenosis. 2. ??No significant neural foraminal or spinal canal stenosis at thoracic levels. 3. ??No abnormal signal or postcontrast enhancement through the spinal cord. I, Hollis French, have reviewed the examination and concur with the findings as reported or so edited. Trainee: ??Salome Pineda If this radiology report contains a blank impression section, it is an incomplete radiology report. ??Please contact the interpreting radiologist or applicable radiology division as soon as possible to obtain the completed interpretation. ? Workstation ID: [id number] 5' 4.5 151.02 Procedure Note [facility], Unknown Provider - 06/03/2024 EXAMINATION: MRI of cervical spine and thoracic without and withcontrast PHARMACEUTICAL: 0.1 mmol/kg of Gadolinium administered intravenously. TECHNIQUE: Multiplanar and multisequence MR imaging of cervical spine and thoracicperformed prior to and following intravenous administration ofGadolinium. Sequences obtained include, Sagittal plane: T1, T2 and STIR Axial plane: T2 and gradient Post gadolinium sequences: T1 in sagittal and axial plane. CLINICAL INFORMATION: Unexplained hyperreflexia and proximal muscleweakness in patient with recent bacteremia COMPARISON: None IMPRESSION: Degraded study by motion artifact. There is straightening of cervical lordosis, could be positional. Thealignment of the cervical spine is otherwise preserved. Diffuse low S5tlrpes intensity is present of osseous structures. This is nonspecific,possibly representing rebound red marrow in the setting of chronic anemia. Other diffuse infiltrative bone marrowprocesses may potentially have a similar appearance. No bone marrow signalabnormality is identified. The vertebral body heights are preserved. Degenerative signal through theposterior-superior aspect of the C6 vertebral body. Given the limitation of the study the visualized spinal cord appearsunremarkable. No abnormal enhancement. There is loss of intervertebral disc height and signal at multiple levelsin keeping with disc degeneration. The visualized prevertebral and paraspinal soft tissues areunremarkable. At C2-C3, no neural foraminal or spinal canal stenosis.. At C3-C4,uncovertebral joint and facet arthropathy resulting in mild leftneural foraminal narrowing. No spinal canal stenosis. At C4-C5, shallow disc herniation, bilateral facet arthropathy withoutsignificant neural foraminal or spinal canal stenosis. At C5-C6, grade 1 anterolisthesis of C5 on C6, no significant neuralforaminal narrowing. Mild spinal canal stenosis. At C6-C7, uncovertebral joint and facet arthropathy resulting in moderateto severe left neural foraminal narrowing. No significant spinal canalstenosis. At C7-T1, no significant neural foraminal or spinal canal stenosis. No significant neural foraminal or spinal canal stenosis at thoraciclevels. IMPRESSION: Evaluation is degraded by motion artifact on multiple sequences. 1. Multilevel multifactorial degenerative changes most pronounced atC5-C6 and C6-C7 levels where there is up to moderate to severe left neuralforaminal narrowing and mild spinal canal stenosis. 2. No significant neural foraminal or spinal canal stenosis at thoraciclevels. 3. No abnormal signal or postcontrast enhancement through the spinalcord. I, Hollis French, have reviewed the examination and concur with the findingsas reported or so edited. Trainee: Salome Pineda If this radiology report contains a blank impression section, it is anincomplete radiology report. Please contact the interpreting radiologistor applicable radiology division as soon as possible to obtain thecompleted interpretation. Workstation ID: [id number] 5' 4.5 151.02 us Unknown Provider [facility] Final Resu lt * MRI LUMBAR SPINE W WO CONTRAST (06/03/2024 12:03 PM EST) Anatomical Region Laterality Modality Other 06/03/2024 12:0 3 PM EST Narrative 06/03/2024 12:03 PM EST INDICATION: Proximal muscle weakness. Bacteremia. TECHNIQUE: Multiplanar, multisequence MRI of the lumbar spine was performed with and without contrast using standard departmental protocol. COMPARISON: CT abdomen and pelvis 06/01/2024. FINDINGS: Numbering: This report assumes five nonrib-bearing lumbar-type vertebrae. L5 is identified by the iliolumbar ligament and lumbosacral angle. Alignment: Anatomic. Bones: Vertebral body heights are within normal limits. Background bone marrow signal is unremarkable. T12 hemangioma. Discs: Mild L5-S1 disc desiccation with mild disc height loss. Fatty type degenerative endplate changes at L5-S1. Sacroiliac joints: Incompletely imaged. Nerves: The conus medullaris terminates at L1-L2. The visualized spinal cord signal is intact. No clumping or thickening of cauda equina nerve roots. No epidural collections. No abnormal enhancement. T11-T12: Intervertebral disc: Within normal limits. Spinal canal: No stenosis. Neuroforamina: No narrowing. T12-L1: Intervertebral disc: Within normal limits. Spinal canal: No stenosis. Neuroforamina: No narrowing. Facet joints: Mild arthropathy. L1-L2: Intervertebral disc: Within normal limits. Spinal canal: No stenosis. Neuroforamina: No narrowing. Facet joints: Mild arthropathy. L2-L3: Intervertebral disc: Within normal limits. Spinal canal: No stenosis. Neuroforamina: No narrowing. Facet joints: Mild arthropathy. L3-L4: Intervertebral disc: Within normal limits. Spinal canal: No stenosis. Neuroforamina: Mild bilateral narrowing. Facet joints: Mild arthropathy. L4-L5: Intervertebral disc: Within normal limits. Spinal canal: No stenosis. Neuroforamina: Mild bilateral narrowing. Facet joints: Mild arthropathy. L5-S1: Intervertebral disc: Mild disc bulge. Spinal canal: No stenosis. Neuroforamina: Mild bilateral narrowing. Facet joints: Mild arthropathy. Abdomen/Retroperitoneum: Hepatic cysts. Left adnexal 1.2 cm cyst. Paraspinal muscles and soft tissues: Within normal limits. IMPRESSION: No evidence of discitis/osteomyelitis in the lumbar spine. No epidural collections or cauda equina compression. Mild L5-S1 disc degeneration without significant spinal canal or neural foraminal narrowing. If this radiology report contains a blank impression section, it is an incomplete radiology report. ??Please contact the interpreting radiologist or applicable radiology division as soon as possible to obtain the completed interpretation. ? Workstation ID: [id number] 5' 4.5 151.02 Procedure Note [facility], Unknown Provider - 06/03/2024 INDICATION: Proximal muscle weakness. Bacteremia. TECHNIQUE: Multiplanar, multisequence MRI of the lumbar spine wasperformed with and without contrast using standard departmentalprotocol. COMPARISON: CT abdomen and pelvis 06/01/2024. FINDINGS: Numbering: This report assumes five nonrib-bearing lumbar-type vertebrae.L5 is identified by the iliolumbar ligament and lumbosacral angle. Alignment: Anatomic. Bones: Vertebral body heights are within normal limits. Background bonemarrow signal is unremarkable. T12 hemangioma. Discs: Mild L5-S1 disc desiccation with mild disc height loss. Fatty typedegenerative endplate changes at L5-S1. Sacroiliac joints: Incompletely imaged. Nerves: The conus medullaris terminates at L1-L2. The visualized spinalcord signal is intact. No clumping or thickening of cauda equina nerveroots. No epidural collections. No abnormal enhancement. T11-T12: Intervertebral disc: Within normal limits. Spinal canal: No stenosis. Neuroforamina: No narrowing. T12-L1: Intervertebral disc: Within normal limits. Spinal canal: No stenosis. Neuroforamina: No narrowing. Facet joints: Mild arthropathy. L1-L2: Intervertebral disc: Within normal limits. Spinal canal: No stenosis. Neuroforamina: No narrowing. Facet joints: Mild arthropathy. L2-L3: Intervertebral disc: Within normal limits. Spinal canal: No stenosis. Neuroforamina: No narrowing. Facet joints: Mild arthropathy. L3-L4: Intervertebral disc: Within normal limits. Spinal canal: No stenosis. Neuroforamina: Mild bilateral narrowing. Facet joints: Mild arthropathy. L4-L5: Intervertebral disc: Within normal limits. Spinal canal: No stenosis. Neuroforamina: Mild bilateral narrowing. Facet joints: Mild arthropathy. L5-S1: Intervertebral disc: Mild disc bulge. Spinal canal: No stenosis. Neuroforamina: Mild bilateral narrowing. Facet joints: Mild arthropathy. Abdomen/Retroperitoneum: Hepatic cysts. Left adnexal 1.2 cm cyst. Paraspinal muscles and soft tissues: Within normal limits. IMPRESSION: No evidence of discitis/osteomyelitis in the lumbar spine. No epidural collections or cauda equina compression. Mild L5-S1 disc degeneration without significant spinal canal or neuralforaminal narrowing. If this radiology report contains a blank impression section, it is anincomplete radiology report. Please contact the interpreting radiologistor applicable radiology division as soon as possible to obtain thecompleted interpretation. Workstation ID: [id number] 5' 4.5 151.02 us Unknown Provider [facility] Final Resu lt * BLOOD CULTURE (06/02/2024 4:42 PM EST) Only the most recent of2 resultswithin the time period is included. Bacteria culture No growth after 5 days [facility] 06/02/2024 4:42 PM EST Narrative [facility] - 06/07/2024 8:51 PM EST [facility] Received Date: MICRO NUMBER: [id number] SPECIMEN QUALITY: Adequate SOURCE: BLOOD VENOUS, PERIPHERAL STATUS: FINAL COMMENT: Aerobic and anaerobic bottle received. us Unknown Provider [facility] LABORATORY Final Resu lt Performing Organization Address [facility] de Phone Number [facility] [employer] [address] [place] [phone] * (ABNORMAL) CK (06/02/2024 12:03 PM EST) CPK 35(L) 38 - 206 U/L [facility] 06/02/2024 12:0 3 PM EST us Unknown Provider [facility] LABORATORY Final Resu lt Performing Organization Address [facility] Co de Phone Number [facility] [employer] [address] [place] [address] * (ABNORMAL) CBC (06/02/2024 8:13 AM EST) WBC 11.9(H) 3.8 - 10.8 10*3/uL [facility] RBC 3.57(L) 3.80 - 5.10 10*6/uL [facility] Hemoglobin 9.8(L) 11.7 - 15.5 g/dL [facility] Hematocrit 31.3(L) 35.0 - 45.0 % [facility] MCV 87.7 80.0 - 100.0 fL [facility] MCH 27.5 27.0 - 33.0 pg [facility] MCHC 31.3(L) 32.0 - 36.0 g/dL [facility] RDW 14.4 11.0 - 15.0 % [facility] PLT 739(H) 140 - 400 10*3/uL [facility] Platelet mean volume 8.4 7.5 - 12.5 fL [facility] 06/02/2024 8:13 AM EST us Unknown Provider [facility] LABORATORY Final Resu lt Performing Organization Address City/[facility]/ZIP Co de Phone Number [facility] [employer] [address] [place] [phone] * TSH REFLEX FREE T4 (06/02/2024 8:13 AM EST) [facility] TSH 2.910 0.280 - 3.890 uIU/mL [facility] Comment: Females: 1st trimester ? 0.150-4.000 ?IU/mL 2nd trimester ?? 0.310-4.170 ???IU/mL 3rd trimester ?0.380-4.150 ???IU/mL 06/02/2024 8:13 AM EST us Unknown Provider [facility] LABORATORY Final Resu lt Performing Organization Address City/[facility]/ZIP Co de Phone Number [facility] [employer] [address] [place] [phone] * (ABNORMAL) CT ABDOMEN PELVIS W CONTRAST (06/01/2024 5:47 PM EST) [facility] Incidental Findings Yes(A) [facility] Anatomical Region Laterality Modality Other 06/01/2024 5:47 PM EST Addenda Addendum by [facility], Unknown Provider on 06/01/2024 5:49 PM EST COMMUNICATION: The findings were communicated via [employer] secure chat acknowledged by Dr. Khan at 5:35 PM on 06/01/2024. If this radiology report contains a blank impression section, it is an incomplete radiology report. ??Please contact the interpreting radiologist or applicable radiology division as soon as possible to obtain the completed interpretation. ? Workstation ID: [id number] COMPARISON: None ?? FINDINGS: Evaluation of the lung bases reveals a group of nodules, each measuring approximately 10-11 mm in the left lower lobe. A nonocclusive filling defect in a segmental pulmonary arterial branch of the left lower lobe is also seen (series 2021, images 12-17), consistent with pulmonary embolism. The liver is normal in contour. Multiple well-circumscribed hypodensities in the liver are consistent with cysts, the largest in the left hepatic lobe measures 2 cm. The gallbladder is unremarkable. There is no biliary ductal dilatation. The spleen, adrenal glands and pancreas are normal. Kidneys are normal in size with symmetrical parenchymal enhancement. Note is made of a punctate 2 mm nonobstructing stone in the lower pole collecting system of the left kidney. There are no renal masses or cysts. There is no hydronephrosis of either kidney. No ureteral stones. The renal arteries and veins are patent. The GI tract is normal in caliber without bowel obstruction or mural thickening. The appendix is normal. No free air or free fluid in the abdomen or pelvis. No lymphadenopathy. The abdominal aorta is normal in caliber. The main branch vessels are patent. IVC is within normal limits. However, there is a nonocclusive filling defect in the right external iliac vein (series 201, image 117), consistent with deep venous thrombosis. There also appears to be a filling defect within the right superficial femoral vein (series 201, image 150). The portal, splenic and superior mesenteric veins are patent. The urinary bladder is unremarkable. The uterus and adnexa are grossly within normal limits. The bones are intact. There is no acute osseous abnormality. However, there appears to be a small mildly rim-enhancing collection within the left adductor dian/obturator externus measuring approximately 2 x 0.9 x 0.8 cm (series 201, image 145). IMPRESSION: 1. Segmental pulmonary embolism in the left lower lobe. 2. Nonocclusive DVT in the right external iliac vein and also likely within the right superficial femoral vein. 3. Small residual intramuscular collection within the left adductor dian/obturator externus muscle, [...] recommend follow-up chest CT in 3 months. (Incidental) COMMUNICATION: Per this written report. A(n) Incidental - ED actionable finding has been communicated to the ordering or responsible provider via the [employer] system on 06/01/2024 5:05 PM. ??Receipt of this communication by the responsible provider will be documented in Witel upon receiving acknowledgement if applicable, Message ID [id number]. If this radiology report contains a blank impression section, it is an incomplete radiology report. ??Please contact the interpreting radiologist or applicable radiology division as soon as possible to obtain the completed interpretation. ? Workstation ID: [id number] Narrative 06/01/2024 5:13 PM EST COMPARISON: None ?? FINDINGS: Evaluation of the lung bases reveals a group of nodules, each measuring approximately 10-11 mm in the left lower lobe. A nonocclusive filling defect in a segmental pulmonary arterial branch of the left lower lobe is also seen (series 202, images 12-17), consistent with pulmonary embolism. The liver is normal in contour. Multiple well-circumscribed hypodensities in the liver are consistent with cysts, the largest in the left hepatic lobe measures 2 cm. The gallbladder is unremarkable. There is no biliary ductal dilatation. The spleen, adrenal glands and pancreas are normal. Kidneys are normal in size with symmetrical parenchymal enhancement. Note is made of a punctate 2 mm nonobstructing stone in the lower pole collecting system of the left kidney. There are no renal masses or cysts. There is no hydronephrosis of either kidney. No ureteral stones. The renal arteries and veins are patent. The GI tract is normal in caliber without bowel obstruction or mural thickening. The appendix is normal. No free air or free fluid in the abdomen or pelvis. No lymphadenopathy. The abdominal aorta is normal in caliber. The main branch vessels are patent. IVC is within normal limits. However, there is a nonocclusive filling defect in the right external iliac vein (series 201, image 117), consistent with deep venous thrombosis. There also appears to be a filling defect within the right superficial femoral vein (series 201, image 150). The portal, splenic and superior mesenteric veins are patent. The urinary bladder is unremarkable. The uterus and adnexa are grossly within normal limits. The bones are intact. There is no acute osseous abnormality. However, there appears to be a small mildly rim-enhancing collection within the left adductor dian/obturator externus measuring approximately 2 x 0.9 x 0.8 cm (series 201, image 145). IMPRESSION: 1. Segmental pulmonary embolism in the left lower lobe. 2. Nonocclusive DVT in the right external iliac vein and also likely within the right superficial femoral vein. 3. Small residual intramuscular collection within the left adductor dian/obturator externus muscle, [...] recommend follow-up chest CT in 3 months. (Incidental) COMMUNICATION: Per this written report. A(n) Incidental - ED actionable finding has been communicated to the ordering or responsible provider via the Witel system on 06/01/2024 5:05 PM. ??Receipt of this communication by the responsible provider will be documented in Witel upon receiving acknowledgement if applicable, Message ID [id number]. If this radiology report contains a blank impression section, it is an incomplete radiology report. ??Please contact the interpreting radiologist or applicable radiology division as soon as possible to obtain the completed interpretation. ? Workstation ID: [id number] Procedure Note [facility], Unknown Provider - 06/01/2024 COMPARISON: None FINDINGS: Evaluation of the lung bases reveals a group of nodules, each measuringapproximately 10-11 mm in the left lower lobe. A nonocclusive fillingdefect in a segmental pulmonary arterial branch of the left lower lobe isalso seen (series 2021, images 12-17), consistent with pulmonary embolism. The liver is normal in contour. Multiple well-circumscribed hypodensitiesin the liver are consistent with cysts, the largest in the left hepaticlobe measures 2 cm. The gallbladder is unremarkable. There is no biliaryductal dilatation. The spleen, adrenal glands and pancreas are normal. Kidneys are normal in size with symmetrical parenchymal enhancement. Noteis made of a punctate 2 mm nonobstructing stone in the lower polecollecting system of the left kidney. There are no renal masses or cysts.There is no hydronephrosis of either kidney. No ureteral stones. The renal arteries and veins are patent. The GI tract is normal in caliber without bowel obstruction or muralthickening. The appendix is normal. No free air or free fluid in the abdomen or pelvis. No lymphadenopathy. The abdominal aorta is normal in caliber. The main branch vessels arepatent. IVC is within normal limits. However, there is a nonocclusivefilling defect in the right external iliac vein (series 201, image 117),consistent with deep venous thrombosis. There also appears to be a filling defect within the right superficialfemoral vein (series 201, image 150). The portal, splenic and superiormesenteric veins are patent. The urinary bladder is unremarkable. The uterus and adnexa are grosslywithin normal limits. The bones are intact. There is no acute osseous abnormality. However,there appears to be a small mildly rim-enhancing collection within theleft adductor dian/obturator externus measuring approximately 2 x 0.9 x0.8 cm (series 201, image 145). IMPRESSION: 1. Segmental pulmonary embolism in the left lower lobe. 2. Nonocclusive DVT in the right external iliac vein and also likelywithin the right superficial femoral vein. 3. Small residual intramuscular collection within the left adductormagnus/obturator externus muscle, consistent with residual or recurrentabscess. 4. Punctate 2 mm nonobstructing stone in the lower pole the left kidney.No hydronephrosis of either kidney. No ureteral stones. 5. Grouped pulmonary nodules in the left lower lobe may be infectious orinflammatory. Suggest comparison with previous outside imaging, ifavailable. Otherwise recommend follow-up chest CT in 3 months.(Incidental) COMMUNICATION: Per this written report. A(n) Incidental - ED actionable finding has been communicated to theordering or responsible provider via the [employer] FindingsChartbeat on 06/01/2024 5:05 PM. Receipt of this communication by theresponsible provider will be documented in [employer] Findings upon receiving acknowledgement ifapplicable, Message ID [id number]. If this radiology report contains a blank impression section, it is anincomplete radiology report. Please contact the interpreting radiologistor applicable radiology division as soon as possible to obtain thecompleted interpretation. Workstation ID: [id number] 135 us Unknown Provider [facility] IMAGING-[facility] Final Resu lt * (ABNORMAL) URINALYSIS W/REFLEX TO MICROSCOPIC & CULTURE (06/01/2024 11:09 AM EST) Color (Urine) Red(A) Colorless, Light Yellow, Yellow, Dark Yellow [facility] Clarity (Urine) Cloudy(A) Clear [facility] Specific gravity (Urine) 1.015 1.005 - 1.030 [facility] pH (Urine) 6.0 4.6 - 8.0 [facility] Protein (Urine) 2+(A) Negative [facility] Glucose (Urine) Negative Negative [facility] Ketones (Urine) Negative Negative [facility] Bilirubin (Urine) Negative Negative [facility] Hemoglobin (Urine) 3+(A) Negative [facility] Nitrite (Urine) Negative Negative [facility] Urobilinogen (Urine) Normal Normal [facility] Leukocyte esterase (Urine) Negative Negative [facility] WBC (Urine) 0 0 - 2 /HPF [facility] RBC (Urine Sed) >180(H) 0 - 2 /HPF [facility] Hyaline casts (Urine sed) 0 0 - 2 /LPF [facility] Bacteria (Urine) None None /HPF /HPF [facility] Mucus (Urine sed) Few /LPF [facility] 06/01/2024 11:0 9 AM EST us Unknown Provider [facility] LABORATORY Final Resu lt [facility] [employer] [address] [place] [address] * (ABNORMAL) GLUCOSE POINT OF CARE (05/30/2024 4:03 PM EST) Only the most recent of5 resultswithin the time period is included. Glucose (Capillary Blood) 148(H) 70 - 105 mg/dL [facility] 05/30/2024 4:03 PM EST 05/30/2024 4:03 PM EST us Chrissy Lincoln MD LABORATORY Final Result Performing Organization Address [facility]/ZIP Co de Phone Number [facility] [address] [place] [address] * MAGNESIUM LEVEL (05/30/2024 6:20 AM EST) Only the most recent of10 resultswithin the time period is included. Magnesium 2.3 1.6 - 2.6 mg/dL [facility] 05/30/2024 6:20 AM EST 05/30/2024 6:40 AM EST us Unknown Provider [facility] LABORATORY Final Resul t Performing Organization Address [facility]/ZIP Co de Phone Number [facility] [address] [place] [address] * (ABNORMAL) COMPLETE BLOOD COUNT WITH AUTO DIFFERENTIAL (05/30/2024 6:20 AM EST) Only the most recent of13 resultswithin the time period is included. WBC 13.3(H) 3.9 - 11.0 x10(3)/mcL [facility] RBC 3.37(L) 3.70 - 5.10 million/mc L [facility] HGB 9.5(L) 11.5 - 12.5 g/dL [facility] HCT 29.2(L) 34.0 - 44.0 % [facility] MCV 87 80 - 100 fL [facility] MCH 28 27 - 33 pg [facility] MCHC 32 31 - 36 g/dL [facility] RDW-SD 47 [facility] PLATELET COUNT 559(H) 150 - 450 x10(3)/[facility] MPV 8.5 7.0 - 11.0 fL [facility] NEUTROPHIL REL 62 42 - 76 % [facility] LYMPHOCYTE REL 24(L) 27 - 47 % [facility] MONOCYTE REL 10 4 - 13 % [facility] EOSINOPHIL REL 2 0 - 7 % [facility] BASOPHIL REL 0 0 - 3 % [facility] IMM GRAN REL 2 % [facility] NEUTROPHIL ABS 8.2(H) 1.8 - 7.0 x10(3)/[facility] LYMPHOCYTE ABS 3.2 1.1 - 5.9 x10(3)/[facility] MONOCYTE ABS 1.3(H) 0.1 - 0.8 x10(3)/[facility] EOSINOPHIL ABS 0.22 0.00 - 0.40 x10(3)/[facility] BASOPHIL ABS 0.06 0.00 - 0.20 x10(3)/[facility] IMM GRAN ABS 0 10(3)/uL [facility] NRBC AUTO REL 0 % [facility] NRBC AUTO ABS 0.00 x10(3)/[facility] 05/30/2024 6:20 AM EST 05/30/2024 6:40 AM EST us Unknown Provider [facility] LABORATORY Final Resul t [facility] [address] [place] [address] * (ABNORMAL) HEPATIC FUNCTION PANEL (05/30/2024 6:20 AM EST) Only the most recent of8 resultswithin the time period is included. Protein Total (Serum) 7.4 6.0 - 8.5 g/dL [facility] Albumin 3.2(L) 3.6 - 4.8 g/dL [facility] Alkaline phosphatase 197(H) 25 - 165 U/L [facility] AST (SGOT) 22 0 - 40 U/L [facility] ALT (SGPT) 17 0 - 32 U/L [facility] Bilirubin Total 0.2 0.1 - 1.2 mg/dL [facility] Comment: ?Premature ? Full Term Cord ? <2.0 ?<2.0 0-1d ? <8.0 ?<8.0 1-2d ? <12.0 ?<8.0 3-5d ? <16.0 ?<12.0 5-10d ?<2.0 ? 0.2-1.0 >10d ? <2.0 ? 0.2-1.0 Bilirubin Direct <0.2 0.0 - 0.4 mg/dL [facility] Bilirubin Indirect >0.0 0.0 - 0.8 mg/dL [facility] Globulin 4.2 1.5 - 4.5 g/dL [facility] Albumin/Globulin 0.8(L) 1.1 - 2.5 [facility] 05/30/2024 6:20 AM EST 05/30/2024 6:40 AM EST us Unknown Provider [facility] LABORATORY Final Resul t Performing Organization Address [facility] Co de Phone Number [facility] [address] [place] [address] * (ABNORMAL) BASIC METABOLIC PANEL (05/30/2024 6:20 AM EST) Only the most recent of9 resultswithin the time period is included. Sodium 139 134 - 144 mEq/L [facility] Potassium 4.3 3.6 - 5.6 mEq/L [facility] Chloride 102 96 - 109 mEq/L [facility] Carbon dioxide 30 20 - 32 mEq/L [facility] Glucose 102(H) 65 - 99 mg/dL [facility] Urea Nitrogen Blood (BUN) 11 5 - 26 mg/dL [facility] Creatinine 0.76 0.50 - 1.50 mg/dL [facility] Calcium 9.3 8.3 - 10.0 mg/dL [facility] Anion gap 7.0(L) 8.0 - 15.0 [facility] BUN/Creatinine Ratio 14 8 - 27 [facility] Osmolality 288 275 - 295 mOsm/kg [facility] EGFR CKD-EPI 89(L) >=90 mL/min/1.7 3m2 [facility] 05/30/2024 6:20 AM EST 05/30/2024 6:40 AM EST us Unknown Provider [facility] LABORATORY Final Resul t Performing Organization Address [facility] Co de Phone Number [facility] [address] [place] [address] * PROCEDURE NOTE (05/30/2024) Narrative 05/30/2024 Ordered by an unspecified provider. Procedure Note [facility], Unknown Provider - 05/30/2024 10:06 AM EST PROCEDURE: Placement of Midline Catheter at the patient's bedside INDICATION: Intravenous access requested for 2 weeks IV Ceftriaxone BRADDISHER: Jodi Ortega RN MEDICATIONS: Local anesthesia with 1% Lidocaine GUIDANCE: Ultrasound DEVICE: BARD POLYMIDLINE 4 Fr x 20 cm single lumen polyurethane catheterlot # [id number] COMPLICATIONS: None TECHNIQUE: Informed consent was obtained [...] tip in the axilla. us Unknown Provider [facility] PROCEDURE NON-FC (HIWAY) Fi nal Result * CT GUIDED CATH FLUID DRAINAGE (05/29/2024 11:56 AM EST) [facility] Patient Name: ? AGUILAASHLEIGH MCGUIRE : ??1960 ? Sex:Female ?Location: [place] [address]; [facility]; ? [facility] [address] ?[place] [address]- ? Radiology ACCESSION ? EXAM DATE/TIME ??PROCEDURE ? ORDERING ? STATUS ?PROVIDER [id number] ??05/29/2024 11:56 ??IR Drain Sft ?LATONIA CRAIG, ? Auth 12 ?EST ? Tiss Fluid ?CHRISSY A ?(Verified) ?Monse W/Cath ?Perc Reason For Exam (IR Drain Sft Tiss Fluid Monse W/Cath Perc) pelvic abcess Report PROCEDURE: Fluid collection aspiration Procedural Personnel Attending physician(s): Rodney Perez MD Fellow physician(s): None Resident physician(s): Amarilis Hayward MD Advanced practice provider(s): None Pre-procedure diagnosis: Left obturator intramuscular focal fluid collection Post-procedure diagnosis: Same Indication: Suspected abscess Additional clinical history: None Complications: No immediate complications. IMPRESSION: Percutaneous aspiration of left obturator intramuscular focal fluid collection, yielding 3 mL of bloody fluid. No drainage catheter was left in place. Plan: -Per primary team. -Follow up specimen culture studies. __ PROCEDURE SUMMARY: - Puncture aspiration of focal fluid collection under CT guidance - Additional procedure(s): None PROCEDURE DETAILS: Pre-procedure Admitting: ?LATONIA CRAIG, CHRISSY Azevedo Consulting: ?? Darlene CRAIG, Iesha Freeman ; EDIN CRAIG, AUTUMN Lennon ; RICH DRUMMOND ?DO, CHRIS Tejeda ; LEANDRA CRAIG, ELDER ; DOUGLAS CRAIG, MIRNA Mendez ; JINA ?, JUMA ; GEOFF CRAIG, HOLLIE Johnson ; PAULA CRAIG, ANNA ; Patient Name: ? ASHLEIGH SILVEIRA : ??1960 ? Sex:Female ?Location: [facility] - 34; 3416; ? [address] ?[place] [address]- ? Radiology Report Consent: Informed consent for the procedure including risks, benefits and alternatives was obtained and time-out was performed prior to the procedure. Preparation: The site was prepared and draped using maximal sterile barrier technique including cutaneous antisepsis. Anesthesia/sedati on Level of anesthesia/sedati on: Moderate sedation (conscious sedation) Anesthesia/sedati on administered by: Independent trained observer under attending supervision with continuous monitoring of the patient\X2019\s level of consciousness and physiologic status Total intra-service sedation time (minutes): 20 Fluid collection aspiration The patient was positioned supine. Initial imaging was performed. Local anesthesia was administered. The fluid collection was accessed using an access needle. Position within the fluid collection was confirmed and fluid aspiration was performed. All instruments were then removed. Aspiration location: Left obturator muscle Initial imaging findings: focal fluid collection in the left obturator muscle. Aspiration needle/catheter: 5F [place] Radiation Dose CT dose length product (mGy-cm): 205 Additional Details Additional description of procedure: None Registry event: V/3/f Device used: None Equipment details: None Specimens removed: 3 mL of bloody fluid. Aspirated fluid was sent for analysis. Estimated blood loss (mL): Less than 10 Standardized report: SIR_DrainageAspir ation_v3.1 Attestation Signer name: Rodney Perez MD I attest that I was present for the entire procedure. I reviewed the stored images and agree with the report as written. Admitting: ?LATONIA CRAIG, CHRISSY Azevedo Consulting: ?? Darlene CRAIG, Iesha Freeman ; EDIN CRAIG, AUTUMN Lennon ; RICH DRUMMOND ?DO, CHRIS Tejeda ; LEANDRA CRAIG, ELDER ; DOUGLAS CRAIG, MIRNA Mendez ; JINA ?JUMA CRAIG ; GEOFF CRAIG, HOLLIE Johnson ; PAULA CRAIG, ANNA ; Patient Name: ? ASHLEIGH SILVEIRA : ??1960 ? Sex:Female ?Location: [facility] - 34; 341; ? B [facility] [address] ?[place] [address]- ? Radiology Report Reading Site: [facility] Final Report Dictated: 05/29/2024 1:07 pm ?Dictated By: Amarilis Hayward Electronic Signature: ??05/30/2024 3:00 pm ?? Signed By: CHRIS CRAIG, RODNEY Admitting: ?LATONIA CRAIG, CHRISSY Azevedo Consulting: ?? Darlene CRAIG, Iesha Freeman ; EDIN CRAIG, AUTUMN Lennon ; RICH DRUMMOND ?DO, CHRIS Tejeda ; LEANDRA CRAIG, ELDER ; DOUGLAS CRAIG, MIRNA Mendez ; JINA ?, JUMA ; GEOFF CRAIG, HOLLIE Johnson ; PAULA CRAIG, ANNA ; [facility] 05/29/2024 11:5 6 AM EST us Chrissy Lincoln MD OTHERTESTPROC IMAGING-[facility] Final Result [facility] [address] [place] [address] * WOUND CULTURE (05/29/2024 11:55 AM EST) WOUND CULTURE Patient Name: ? ASHLEIGH SILVEIRA : ??1960 ? Sex:Female ?Location: [facility] - 34; 3416; [facility] ? Medical ? Director(s): [address] ? [place] [address]- Ordering Physician: ?CHRISSY LINCOLN MD ? Microbiology Procedure: ?Wound Culture ??[*1] Accession: ? [id number] Source: ? Abscess ? Body Site: ? Pelvic Collected ? 05/29/2024 11:55 EST ??Received ? 05/29/2024 12:50 EST Date/Time: ?Date/Time: Start Date/Time: ?05/29/2024 12:51 EST ??Free Text Source: ??pelvic abscess ? drainage FINAL REPORTS Final Report ??[] Verified Date/Time: 06/02/2024 14:02 EST No growth at 4 days. PRELIMINARY REPORTS Preliminary Report ??[] Verified Date/Time: 06/02/2024 08:02 EST No growth at 4 days. Preliminary Report ??[] Verified Date/Time: 06/01/2024 09:02 EST No growth at 3 days. Preliminary Report ??[] Verified Date/Time: 05/31/2024 10:30 EST No growth at 2 days. Preliminary Report ??[] Verified Date/Time: 05/30/2024 11:37 EST No growth at 1 day. STAINS GS ??[] Verified Date/Time: 05/29/2024 17:10 EST Moderate White Blood Cells No bacteria seen Performing Locations *1: ?? This test was performed at: ?[facility], [address] [place] [address], [address], [place], ?[phone] Legend: A = Abnormal, H = High, L = Low, ! = Critical, f = Footnote, r = Refere = Corrected, I = Interpretation [facility] 05/29/2024 11:5 5 AM EST 05/29/2024 12:50 PM EST Chrissy Lincoln MD LABORATORY Final Result Performing Organization Address [facility] Co de Phone Number [facility] [address] [place] [id number] * PARTIAL THROMBOPLASTIN TIME (05/29/2024 10:40 AM EST) Only the most recent of17 resultswithin the time period is included. Thromboplastin Time 31.5 25.0 - 35.0 sec [facility] Comment: Normal: ? 25.0-35.0 Therapeutic: ??50.0-90.0 05/29/2024 10:4 0 AM EST 05/29/2024 10:49 AM EST Chrissy Lincoln MD LABORATORY Final Result Performing Organization Address [facility] Co de Phone Number [facility] [address] [place] [id number] * ABO/RH (05/28/2024 2:18 AM EST) ABORH TYPE Patient Name: ? ASHLEIGH SILVEIRA : ??1960 ? Sex:Female ?Location: [place] [address]; [facility]; [facility] ? Medical ? Director(s): [address] ? [place] [address]- Ordering Physician: ?ZEENAT PATINO MD ?Laboratory Results ? Blood Bank Collected Date/Time ? Specimen Type 05/28/2024 02:18 EST ?Blood Procedure ? Result ?Units ? Reference ?Verified ?Range ?Date/Time BB ID Number ?[id number] ??[*1] ?05/28/2024 03:35 ? EST ABORh Bld Gr/ ?? O POS [*1] ? 05/28/2024 03:35 Tp ? EST Performing Locations *1: ?? This test was performed at: ?[facility], [address] [place] [address], [address], , ?[phone] Legend: A = Abnormal, H = High, L = Low, ! = Critical, f = Footnote, r = Refere = Corrected, I = Interpretation [facility] 05/28/2024 2:1 8 AM EST 05/28/2024 2:45 AM EST us Unknown Provider [facility] LABORATORY Final Resul t [facility] [address] [place] [address] * LAZARO INDIRECT ANTIBODY SCREEN, RBC WITH REFLEX TO IDENTIFICATION AND TITER (05/28/2024 2:18 AM EST) ANTIBODY SCREEN Patient Name: ? ASHLEIGH SILVEIRA DOB: ??1960 ? Sex:Female ?Location: [place] [address]; [facility]; [facility] ? Medical ? Director(s): [address] [place] [address] ? [place] [address]- Ordering Physician: ?SUKUMAR CRAIG, ZEENAT OCASIO ?Laboratory Results ? Blood Bank Collected Date/Time ? Specimen Type 05/28/2024 02:18 EST ?Blood Procedure ? Result ?Units ? Reference ?Verified ?Range ?Date/Time Antibody ?Negative ABSC ?05/28/2024 03:35 Screen ?[*1] ? EST Performing Locations *1: ?? This test was performed at: ?[facility], [address] [place] [address], [address], , ?[phone] Legend: A = Abnormal, H = High, L = Low, ! = Critical, f = Footnote, r = Refere = Corrected, I = Interpretation [facility] 05/28/2024 2:18 AM EST 05/28/2024 2:45 AM EST us Unknown Provider [facility] LABORATORY Final Resul t [facility] [address] [place] [address] * (ABNORMAL) PROTHROMBIN TIME (05/28/2024 2:18 AM EST) Only the most recent of3 resultswithin the time period is included. PT 11.0 9.1 - 12.0 sec [facility] INR 1.0(L) 2.0 - 3.5 [facility] Comment: INR reference interval applies to patients on anticoagulant therapy. Suggested INR therapeutic range for oral anticoagulant therapy: (Stabilized anticoagulated patients) Routine Therapy: 2.0-3.0 Recurrent Myocardial Infarction or Mechanical Prosthetic Valves: 2.5-3.5 05/28/2024 2:18 AM EST 05/28/2024 2:46 AM EST us Unknown Provider [facility] LABORATORY Final Resul t Performing Organization Address City/[facility]/ZIP Co de Phone Number [facility] [address] [place] [address] * (ABNORMAL) MANUAL DIFF (05/28/2024 2:18 AM EST) Only the most recent of3 resultswithin the time period is included. SEGS MAN 58 % [facility] BAND MAN 1 % [facility] LYMPHOCYTE MAN 30 % [facility] MONOCYTE MAN 5 % [facility] EOS MAN 2 0 - 3 % [facility] BASOPHIL MAN 0 % [facility] METAMYELO MAN 2 % [facility] MYELOCYTE MAN 2 % [facility] Platelet Estimation Appears Normal Appears Normal [facility] Erythrocyte shape Abnormal(A) Normal [facility] Microcytes 1+(A) None Seen [facility] Polychromasia 1+(A) None Seen [facility] Platelet morphology finding Large(A) Normal [facility] Ovalocytes 1+(A) None Seen [facility] CELLS COUNTED 100 cell diff [facility] 05/28/2024 2:18 AM EST 05/28/2024 2:46 AM EST us Unknown Provider [facility] LABORATORY Final Resul t Performing Organization Address [facility]/ZIP Co de Phone Number [facility] [address] [place] [address] * (ABNORMAL) PHOSPHATE LEVEL (05/28/2024 2:18 AM EST) Only the most recent of3 resultswithin the time period is included. Phosphate 4.6(H) 2.5 - 4.5 mg/dL [facility] 05/28/2024 2:18 AM EST 05/28/2024 2:47 AM EST us Unknown Provider [facility] LABORATORY Final Resul t [facility] [address] [place] [address] * CT PELVIS W. CONTRAST (05/25/2024 10:49 AM EST) RADRPT Patient Name: ? ASHLEIGH SILVEIRA : ??1960 ? Sex:Female ?Location: [facility] - 34; 3416; ? [facility] [address] ?[place] [address]- ? Radiology ACCESSION ? EXAM DATE/TIME ??PROCEDURE ? ORDERING ? STATUS ?PROVIDER [id number] ??05/25/2024 ? CT Pelvis w/ ?IAM CRAIG KARRI Auth 08 ?10:49 EST ? Contrast ? (Verified) Reason For Exam (CT Pelvis w/ Contrast) Abscess Pelvis Report EXAM: CT pelvis with contrast INDICATION: Pelvic abscess TECHNIQUE: CT of the pelvis with intravenous contrast was performed. Multiplanar reformats were provided. ??80 cc Isovue-370 IV. Adaptive Iterative Dose Reduction (AIDR) and NEMA XR 25 DOSE Check software, were used to reduce radiation dose to the patient. COMPARISON: MR pelvis with and without contrast dated May 21, 2024. FINDINGS: Redemonstrated peripherally enhancing 4.1 cm collection within the left obturator muscle, similar in appearance to the prior MRI. ??No other abscess is seen. ??Reactive appearing bilateral inguinal lymph nodes. Filling defects in the right common femoral and external iliac veins. There is mild gallbladder wall thickening. ??Other pelvic structures appear unremarkable. ??No acute osseous abnormalities. IMPRESSION: 1.Stable appearance of left obturator abscess measuring up to 4.1 cm. 2.Filling defects in the right venous system could represent venous thrombosis or contrast mixing artifact. ??Correlation with Doppler ultrasound is recommended. 3.Urinary bladder wall thickening could represent cystitis. Admitting: ?LATONIA CRAIG, CHRISSY Azevedo Consulting: ?? LEANDRA CRAIG, ELDER ; DOUGLAS CRAIG, MIRNA Mendez ; JINA CRAIG, JUMA ; ?GEOFF CRAIG, HOLLIE Johnson ; PAULA CRAIG, ANNA ; JUAN JOSE CANNON DO Patient Name: ? RAOUL ASHLEIGH : ??1960 ? Sex:Female ?Location: [place] [address]; [facility]; ? [facility] [address] ?[place] [address]- ? Radiology Report Reading site: [facility] Final Report Dictated: 05/25/2024 1:28 pm ?Dictated By: CASSIDY GUILLAUME MD Electronic Signature: ??05/25/2024 1:33 pm ?? Signed By: CASSIDY GUILLAUME MD Admitting: ?LATONIA CRAIG, CHRISSY Azevedo Consulting: ?? LEANDRA CRAIG, ELDER ; DOUGLAS CRAIG, MIRNA Mendez ; JINA CRAIG, JUMA ; ?GEOFF CRAIG, HOLLIE Johnson ; PAULA CRAIG, ANNA ; KASSANDRA BARTON, JUAN JOSE Garcia [facility] Anatomical Region Laterality Modality Other 05/25/2024 10:4 9 AM EST Unknown Provider [facility] Final Resul t * VANCOMYCIN LEVEL TROUGH (05/24/2024 8:18 AM EST) Only the most recent of2 resultswithin the time period is included. [facility] Vancomycin^trou gh 17.1 10.0 - 20.0 mcg/mL [facility] 05/24/2024 8:18 AM EST 05/24/2024 9:03 AM EST Donnell Qureshi MD LABORATORY Final Result [facility] [address] [place] [address] * TRANSESOPHAGEAL ECHOCARDIOGRAM (05/24/2024 7:45 AM EST) [facility] CARDIOLOGY REPORTS Please click on link to see image. [facility] Comment:Missing Attachment A TTACHMENT Can be viewed in source system REPORT Study ID: [id number] [address] [id number] Non- Invasive Cardiology Laboratory ?Transesophageal Echocardiogram Final Report Name: ASHLEIGH SILVEIRA ? Study Date: 05/24/2024 07:45 AM ? Patient Location: 34 : 1960 ? Age: 63 yrs ?Gender: Female Reason For Study: Bacteremia Ordering Physician: KARRI VITALE Referring Physician: CHRISSY LINCOLN Interpretation Summary The study was diagnostic quality. -Left ventricular systolic function is normal. -Ejection Fraction = 65 %. -No valve vegetation. No echocardiographic evidence of endocarditis. MAXIMO Procedure Notes A 2D transesophageal echocardiogram with Spectral and color flow Doppler was performed. The patient was prepped in the standard fashion. Intravenous access was obtained and the patient received continuous oxygen with oximetric monitoring. The patient???s blood pressure, heart rate, and cardiac rhythm were continuously monitored. Once informed consent for the MAXIMO and for conscious sedation was obtained by the attending, the posterior oropharynx was anesthetized. Conscious sedation was obtained. The MAXIMO probe was then inserted into the mouth, guided to the posterior oropharynx, and, with manipulation, the esophagus was intubated. A standard MAXIMO was then performed using the Omniplane probe through transesophageal and transgastric windows. Spectral Doppler, color-flow Doppler, and 2-dimensional echocardiographic images were obtained of all important cardiac structures in multiple planes and were saved on videotape and in digital files. The probe was withdrawn from the esophagus and the posterior pharynx. The patient was observed until satisfactory recovery was achieved. There were no complications. DOSING: Versed: 2.5 mg. DOSING: Fentanyl: 62.5 mcg. Left Ventricle The left ventricle is normal in size. There is normal left ventricular wall thickness. Left ventricular systolic function is normal. Ejection Fraction = 65 %. No regional wall motion abnormalities noted. Right Ventricle The right ventricle is normal in size and function. Atria The interatrial septum is intact with no evidence for an atrial septal defect. The left atrial size is normal. 4 out of 4 pulmonary veins visualized draining into the left atrium. Right atrial size is normal. Mitral Valve The mitral valve leaflets appear normal. There is no evidence of stenosis, fluttering, or prolapse. There is no vegetation seen on the mitral valve. There is mild mitral regurgitation. Tricuspid Valve The tricuspid valve is normal. There is no tricuspid valve vegetation. There is trace tricuspid regurgitation. Pulmonary Artery Systolic Pressure could not be estimated because of incomplete tricuspid regurgitation Doppler jet envelope. Aortic Valve The aortic valve is trileaflet. The aortic valve opens well. There is no aortic valvular vegetation. There is no aortic stenosis. No aortic regurgitation is present. Pulmonic Valve The pulmonic valve leaflets are thin and pliable; valve motion is normal. There is no vegetation on the pulmonic valve. Trace pulmonic valvular regurgitation. Vessels The aortic root is normal size. The ascending aorta is normal in size. Pericardium There is no pericardial effusion. MMode/2D Measurements \T\ Calculations Ao root diam: 3.0 cm ?asc Aorta Diam: 3.2 cm Ao root area: 7.2 cm2 Electronically Signed By: ? Juan Jose Cannon ? 05/24/2024 07:49 AM Authenticated by JUAN JOSE CANNON DO [[id number]] on 05/24/2024 at 07:31:03 [facility] 05/24/2024 7:45 AM EST Narrative [facility] - 05/24/2024 7:31 AM EST per ID recommendations us Unknown Provider Svh CARDIOVASCULAR-NO INANAHY RTG Edited Result - Final [facility] [address] [place] [address] * ANTINEUTROPHIL CYTOPLASMIC AB (05/24/2024 6:06 AM EST) C ANCA Titer <1:20 Neg:<1:20 titer [facility] Comment: Performed at: ?? - [facility] [address] ??[id number] Revenue Analyst: Maranda Mon MD, Phone: ??[phone] P Anca Titer <1:20 Neg:<1:20 titer [facility] Comment: The presence of positive fluorescence exhibiting P-ANCA or C-ANCA patterns alone is not specific for the diagnosis of Will's Granulomatosis (WG) or microscopic polyangiitis. Decisions about treatment should not be based solely on ANCA IFA results. ??The [employer] ANCA [employer] Consensus recommends follow up testing of positive sera with both TN- 3 and MPO-ANCA enzyme immunoassays. As many as 5% serum samples are positive only by EIA. Ref. AM J Clin Pathol 1999;111:507-513. Performed at: ?? - [facility] [address] ??[id number] Revenue Analyst: Maranda Mon MD, Phone: ??[phone] Atypical P ANCA Titer <1:20 Neg:<1:20 titer [facility] Comment: The atypical pANCA pattern has been observed in a significant percentage of patients with ulcerative colitis, primary sclerosing cholangitis and autoimmune hepatitis. Performed at: ?? - [facility] [address] ??[id number] Revenue Analyst: Maranda Mon MD, Phone: ??[phone] 05/24/2024 6:06 AM EST 05/24/2024 6:13 AM EST us Unknown Provider [facility] LABORATORY Final Resul t [facility] [address] [place] [address] * MYELOPEROXIDASE ANTIBODIES (05/24/2024 6:06 AM EST) Myeloperoxidase Ab <0.2 0.0 - 0.9 units [facility] Comment: Performed at: ??BN - [facility] [address] ??[id number] Revenue Analyst: Maranda Mon MD, Phone: ??[phone] 05/24/2024 6:06 AM EST 05/24/2024 6:12 AM EST us Unknown Provider [facility] LABORATORY Final Resul t Performing Organization Address [facility] Co de Phone Number [facility] [address] [place] [address] * ANTINUCLEAR ANTIBODIES, IFA (05/24/2024 6:06 AM EST) [facility] AMADOU Screen Negative Negative [facility] Comment: Performed at: ??RN - [facility] [address] ??[id number] Revenue Analyst: Raquel English MD, Phone: ??[phone] 05/24/2024 6:06 AM EST 05/24/2024 6:13 AM EST us Unknown Provider [facility] LABORATORY Final Resul t Performing Organization Address [facility] de Phone Number [facility] [address] [place] [address] * MRI THOR WO/W CM (05/22/2024 8:16 PM EST) Pathologist [facility] RADRPT Patient Name: ? ASHLEIGH SILVEIRA : ??1960 ? Sex:Female ?Location: [facility] - 34; 3416; ? [facility] [address] ?[place] [address]- ? Radiology ACCESSION ? EXAM DATE/TIME ??PROCEDURE ? ORDERING ? STATUS ?PROVIDER [id number] ??05/22/2024 ? MRI Spine ? IAM CRAIG, KARRI Auth 56 ?20:16 EST ? Thoracic w/ + ?(Verified) ?w/o Contrast Reason For Exam (MRI Spine Thoracic w/ + w/o Contrast) concern for septic emboli/abscess;Ot her - Populate Reason For Exam (Freetext) Report MRI THORACIC SPINE WITHOUT AND WITH CONTRAST INDICATION: Concern for septic emboli/abscess. TECHNIQUE: MRI of the thoracic spine was performed using 1.5Tesla magnet with and without intravenous contrast. Sagittal T1, T2 and STIR; axial T1 and T2 sequences were obtained. After injection of 13 mL of Dotarem intravenously, axial, sagittal images were obtained. COMPARISON: Lumbar spine May 21, 2024 FINDINGS: VERTEBRA: Normal height and alignment. ??Normal vertebral signal intensity. Bridging anterior osteophytosis of T10-T11. ??Small lipoma noted within the left T11 posterior vertebral body/anterior pedicle. SPINAL CORD: ??Normal caliber and signal intensity of the spinal cord. Flow-void seen within the spinal canal. INTERVERTEBRAL DISCS: ??Mild multilevel desiccation changes of discs.. Axial images were obtained from C7-T1 through T12-L1. Level by level analysis yields the following: C7-T1: No significant disc abnormality or critical canal stenosis. No neural foraminal narrowing. T1-T2: No significant disc abnormality or critical canal stenosis. No neural foraminal narrowing. T2-T3: No significant disc abnormality or critical canal stenosis. No neural foraminal narrowing. Admitting: ?LATONIA CRAIG, CHRISSY Azevedo Consulting: ?? JINA CRAIG, JUMA TELLEZ MD, HOLLIE MITCHELL MD, ?ANNA CANNON DO, JUAN JOSE Garcia Patient Name: ? ASHLEIGH SILVEIRA : ??1960 ? Sex:Female ?Location: [facility] - ; [facility]; ? [facility] [address] ?[place] [address]- ? Radiology Report T3-T4: No significant disc abnormality or critical canal stenosis. No neural foraminal narrowing. T4-T5: No significant disc abnormality or critical canal stenosis. No neural foraminal narrowing. T5-T6: No significant disc abnormality or critical canal stenosis. No neural foraminal narrowing. T6-T7: No significant disc abnormality or critical canal stenosis. No neural foraminal narrowing. T7-T8: No significant disc abnormality or critical canal stenosis. Left facet joint hypertrophy and mild left neural from stenosis.. T8-T9: Minor central to minimally right-sided protrusion, barely impressing the thecal sac. ??No spinal or foraminal stenosis. ??Anterior endplate proliferative changes. T9-T10: No significant disc abnormality or critical canal stenosis. No neural foraminal narrowing. T10-T11: No significant disc abnormality or critical canal stenosis. No neural foraminal narrowing. ?? Mild endplate degenerative changes are seen. T11-T12: No significant disc abnormality or critical canal stenosis. No neural foraminal narrowing. Likely small osseous hemangioma the left pedicle. T12-L1: No significant disc abnormality or critical canal stenosis. No neural foraminal narrowing. SOFT TISSUES AND PARAVERTEBRAL REGION: OTHER: No abnormal enhancement is seen. ??Posterior dependent effusions. IMPRESSION: 1.No definite evidence of fluid collections. ??Soft tissues are intact. 2.No significant disc abnormality or critical canal stenosis. Mild chronic degenerative changes as described above. 3.No abnormal enhancement is seen. ATTENDING REVIEW by Bryanna Gay MD: 05/23/2024 8:22 AM I have reviewed the case and agree with the reported findings. Admitting: ?LATONIA CRAIG, CHRISSY Azevedo Consulting: ?? JINA CRAIG, JUMA TELLEZ MD, HOLLIE MITCHELL MD, ?ANNA CANNON DO, JUAN JOSE Garcia Patient Name: ? ASHLEIGH SILVEIRA : ??1960 ? Sex:Female ?Location: [facility] - ; [facility]; ? [facility] [address] ?[place] [address] ? Radiology Report Reading Site: [facility] Final Report Dictated: 05/23/2024 7:48 am ?Dictated By: Francisco Wheat Electronic Signature: ??05/23/2024 8:29 am ?? Signed By: BRYANNA GAY MD Admitting: ?LATONIA CRAIG, CHRISSY Azevedo Consulting: ?? JINA CRAIG, JUMA TELLEZ MD, HOLLIE MITCHELL MD, ?ANNA CANNON DO, [facility] Anatomical Region Laterality Modality Other 05/22/2024 8:16 PM EST us Unknown Provider [facility] IMAGING-[facility] Final Resul t * MRI BRAIN/HEAD WO/W CM (05/22/2024 8:15 PM EST) RADRPT Patient Name: ? HEIDEASHLEIGH SERNA : ??1960 ? Sex:Female ?Location: [facility] - 34; 3416; ? [facility] [address] [facility] [address] ?[place] [address] ? Radiology ACCESSION ? EXAM DATE/TIME ??PROCEDURE ? ORDERING ? STATUS ?PROVIDER [id number] ??05/22/2024 ? MRI Brain w/ + ??IAM CRAIG, KARRI Auth 55 ?20:15 EST ? w/o Contrast ? (Verified) Reason For Exam (MRI Brain w/ + w/o Contrast) concern for septic emboli/abscess;O ther - Populate Reason For Exam (Freetext) Report MRI Brain without and with contrast History [ : Concern for septic emboli/abscess. ??Head injury. All images 1.5 [employer] scanner. Sagittal FLAIR T1, axial T1, FLAIR T2, T2, SWI, DWI sequences are obtained. ??Following ??13 cc of Dotarem intravenous contrast, Ax T1, and T1 LAWLER imaging is performed with multiplanar reformatted imaging. Comparison: CT brain dated 05/20/2024. Findings: Diffusion Weighted imaging: There is no evidence of acute infarction. Ventricles, sulci and extra-axial spaces: Ventricular size, sulci and extra-axial spaces are normal in appearance. Parenchyma: Parenchymal structures are normal in appearance. No hemorrhage or mass effect is seen. Minor foci of white matter FLAIR and T2 ??bright foci are noted in keeping with non-specific changes often seen with small vessel disease. Post contrast imaging reveals normal parenchymal enhancement. Skull base: Sella and foramen magnum regions are unremarkable. Orbits: There is a normal appearance of the orbital structures. Paranasal sinuses: Paranasal sinuses are clear. Mastoid air cells are clear. Bones: Normal appearance of the bones and bony marrow. Admitting: ?LATONIA CRAIG, CHRISSY Azevedo Consulting: ?? JINA CRAIG, JUMA ; GEOFF CRAIG, HOLLIE MITCHELL MD, ?ANNA CANNON DO, JUAN JOSE Garcia Patient Name: ? STGASHLEIGH SERNA : ??1960 ? Sex:Female ?Location: [facility] - 34; 3416; ? [facility] [address] ?[place] [address]- ? Radiology Report Vessels: Normal major intracranial vascular flow voids are seen including vessels of the [place] of [place] and dural venous sinuses. Soft tissues: Normal appearance of the soft tissues. Impression: 1. No acute intracranial changes are noted.. ??No restriction of diffusion. ??No evidence of abscess. ??No evidence of acute infarction. 2. No mass effect or abnormal enhancement is seen. Reading Site: ??[facility] Final Report Dictated: 05/23/2024 7:13 am ?Dictated By: BRYANNA GAY MD Electronic Signature: ??05/23/2024 7:37 am ?? Signed By: BRYANNA GAY MD Admitting: ?LATONIA CRAIG, CHRISSY Azevedo Consulting: ?? JINA CRAIG, JUMA TELLEZ MD, HOLLIE MITCHELL MD, ?ANNA CANNON DO, JUAN JOSE Garcia [facility] Anatomical Region Laterality Modality Other 05/22/2024 8:15 PM EST us Unknown Provider [facility] IMAGING-[facility] Final Resul t * BLOOD CULTURE (05/22/2024 4:50 PM EST) Only the most recent of4 resultswithin the time period is included. BLOOD CULTURE Patient Name: ? ASHLEIGH SILVEIRA : ??1960 ? Sex:Female ?Location: [place] [address]; [facility]; [facility] ? Medical ? Director(s): [address] [place] [address] ? [place] [address]- Ordering Physician: ?KARRI VITALE MD ? Microbiology Procedure: ?Blood Culture ??[*1] Accession: ? [id number] Source: ? Peripheral Draw ? Body Site: Collected ? 05/22/2024 16:50 ? Received ? 05/22/2024 17:51 Date/Time: ?EST ? Date/Time: ? EST Start Date/Time: ?05/22/2024 17:51 ? Free Text Source: ?EST FINAL REPORTS Final Report ??[] Verified Date/Time: 05/28/2024 00:01 EST No growth at 5 days. PRELIMINARY REPORTS Preliminary Report ??[] Verified Date/Time: 05/27/2024 00:01 EST No growth at 4 days. Preliminary Report ??[] Verified Date/Time: 05/26/2024 00:01 EST No growth at 3 days. Preliminary Report ??[] Verified Date/Time: 05/25/2024 00:01 EST No growth at 2 days. Preliminary Report ??[] Verified Date/Time: 05/24/2024 00:02 EST No growth at 1 day. Performing Locations *1: ?? This test was performed at: ?[facility], [address] [place] [address], [phone], , ?[phone] Legend: A = Abnormal, H = High, L = Low, ! = Critical, f = Footnote, r = Refere = Corrected, I = Interpretation [facility] 05/22/2024 4:50 PM EST 05/22/2024 5:51 PM EST us Unknown Provider [facility] LABORATORY Final Resul t [facility] [address] [place] [address] * (ABNORMAL) COMPREHENSIVE METABOLIC PANEL (05/22/2024 5:25 AM EST) Only the most recent of2 resultswithin the time period is included. Sodium 141 134 - 144 mEq/L [facility] Potassium 3.2(L) 3.6 - 5.6 mEq/L [facility] Chloride 108 96 - 109 mEq/L [facility] Carbon dioxide 22 20 - 32 mEq/L [facility] Glucose 107(H) 65 - 99 mg/dL [facility] Urea Nitrogen Blood (BUN) 7 5 - 26 mg/dL [facility] Creatinine 0.69 0.50 - 1.50 mg/dL [facility] Anion gap 11.0 8.0 - 15.0 [facility] BUN/Creatinine Ratio 10 8 - 27 [facility] Protein Total (Serum) 5.7(L) 6.0 - 8.5 g/dL [facility] Albumin 2.8(L) 3.6 - 4.8 g/dL [facility] Calcium 8.1(L) 8.3 - 10.0 mg/dL [facility] Bilirubin Total 0.3 0.1 - 1.2 mg/dL [facility] Comment: ?Premature ? Full Term Cord ? <2.0 ?<2.0 0-1d ? <8.0 ?<8.0 1-2d ? <12.0 ?<8.0 3-5d ? <16.0 ?<12.0 5-10d ?<2.0 ? 0.2-1.0 >10d ? <2.0 ? 0.2-1.0 Alkaline phosphatase 278(H) 25 - 165 U/L [facility] AST (SGOT) 38 0 - 40 U/L [facility] ALT (SGPT) 27 0 - 32 U/L [facility] Globulin 2.9 1.5 - 4.5 g/dL [facility] Osmolality 290 275 - 305 mmol/kg [facility] Albumin/Globulin 1.0(L) 1.1 - 2.5 [facility] Calcium 9 mg/dL [facility] EGFR CKD-EPI >90 >=90 mL/min/1.7 3m2 [facility] 05/22/2024 5:25 AM EST 05/22/2024 6:13 AM EST us Unknown Provider [facility] LABORATORY Final Resul t [facility] [address] [place] [address] * MRI PELVIS WO/W CM (05/21/2024 10:06 PM EST) RADRPT Patient Name: ? HEIDEASHLEIGH SERNA JUAN: ??1960 ? Sex:Female ?Location: [facility] - 34; 3416; ? [facility] [address] ?[place] [address]- ? Radiology ACCESSION ? EXAM DATE/TIME ??PROCEDURE ? ORDERING ? STATUS ?PROVIDER [id number] ??05/21/2024 ? MRI Pelvis w/ ?? DONNELL QURESHI MD Modified 24 ?22:07 EST ? + w/o Contrast ??K Reason For Exam (MRI Pelvis w/ + w/o Contrast) bilateral thigh pain & concern for infection;Other - Populate Reason For Exam (Freetext) Addendum error Final Report Dictated: 05/22/2024 2:49 pm ?Dictated By: CASSIDY GUILLAUME MD Electronic Signature: ??05/22/2024 2:50 pm ?? Signed By: CASSIDY GUILLAUME MD Report MRI OF THE PELVIS WITH AND WITHOUT CONTRAST INDICATION: Bilateral thigh pain, concern for infection TECHNIQUE: MRI of the pelvis is performed with and without intravenous contrast. 13mL of Dotarem was injected intravenously. Coronal T1, T2 and STIR. Axial T1, T2 and proton density. Sagittal T1 FSE. Post contrast injection axial, sagittal and coronal images. COMPARISON: CT abdomen pelvis May 19, 2024 FINDINGS: UTERUS: The uterus is retroflexed. No endometrial canal thickening. OVARIES:Ovaries not well demonstrated, most likely atrophic. BLADDER: There is mild urinary bladder wall thickening. ??No suspicious intraluminal masses. LYMPH NODES: No definite lymphadenopathy seen. OTHERS: Partially demonstrated lower GI tract is unremarkable. Large stool burden of the cecum. Admitting: ?LATONIA RCAIG, CHRISSY Azevedo Consulting: ?? JINA CRAIG, JUMA TELLEZ MD, HOLLIE MITCHELL MD, ?ANNA CANNON DO, JUAN JOSE Garcia Patient Name: ? RAOUL ASHLEIGH : ??1960 ? Sex:Female ?Location: [place] [address]; [facility]; ? [facility] [address] ?[place] [address]- ? Radiology Report BONES and SOFT TISSUES: There is a fluid collection measuring 3.6 x 0.7 cm within the left obturator muscle, noting surrounding capsular enhancement. No suspicious bone finding. IMPRESSION: 1.Findings suspicious for 3.6 cm abscess collection within the left obturator muscle. 2.Urinary bladder wall thickening could represent cystitis, correlation with urinalysis is advised. I have personally reviewed the study and agree with the reported findings. Cassidy Guillaume MD Reading site: [facility] Final Report Dictated: 05/22/2024 12:51 pm ? Dictated By: Francisco Wheat Electronic Signature: ??05/22/2024 2:40 pm ?? Signed By: CASSIDY GUILLAUME MD Report last revised on 05/22/2024 14:50 EST by CASSIDY GUILLAUME MD Admitting: ?LATONIA CRAIG, CHRISSY Azevedo Consulting: ?? JINA CRAIG, JUMA Danielle TELLEZ MD, HOLLIE MITCHELL MD, ?ANNA CANNON DO, JUAN JOSE Garcia [facility] Anatomical Region Laterality Modality Other 05/21/2024 10:0 6 PM EST us Donnell Qureshi MD IMAGING-[facility] Edited Result - Final * MRI LUMB WO/W CM (05/21/2024 10:03 PM EST) RADRPT Patient Name: ? RAOULASHLEIGH : ??1960 ? Sex:Female ?Location: [facility] - 34; 3416; ? [facility] [address] [facility] [address] ?[place] [address] ? Radiology ACCESSION ? EXAM DATE/TIME ??PROCEDURE ? ORDERING ? STATUS ?PROVIDER [id number] ??05/21/2024 ? MRI Spine ? TITUS CRAIG, DONNELL Modified 25 ?22:06 EST ? Lumbar w/ + ? K ?w/o Contrast Reason For Exam (MRI Spine Lumbar w/ + w/o Contrast) low back pain & concern for infection;Lower Extremity Pain Addendum Addendum: Abnormal T2 and STIR hyperintense signal within the L5-S1 disc space, suggestive of a small annular fissure. Final Report Dictated: 05/22/2024 2:50 pm ?Dictated By: CASSIDY GUILLAUME MD Electronic Signature: ??05/22/2024 2:50 pm ?? Signed By: CASSIDY GUILLAUME MD Report MRI LUMBAR SPINE WITHOUT AND WITH CONTRAST INDICATION: Lower extremity pain, back pain. COMPARISON: None available. TECHNIQUE: Magnetic resonance imaging of the lumbar spine was performed both WITHOUT and WITH injected contrast. 13 cc of Dotarem was administered intravenously. Sagittal T1, T2, STIR, axial T1 and T2 and pre and post contrast T1 fat-sat with ((+++subtraction+++ )))in axial and sagittal planes were obtained. FINDINGS: LUMBAR SPINE: Normal lumbar lordosis. Normal height and alignment. ??Type II Modic changes seen at L5-S1 ??Normal vertebral body signal intensity otherwise seen. CONUS: Normal distal tapering of conus medullaris at T12-L1 INTERVERTEBRAL DISKS: Mild loss of height and degenerative signal seen in the L5-S1 disc. ??Normal height and signal intensity otherwise seen. ??No abnormal enhancing lesions. Admitting: ?LATONIA CRAIG, CHRISSY Azevedo Consulting: ?? JINA CRAIG, JUMA ; GEOFF CRAIG, HOLLIE MITCHELL MD, ?ANNA CANNON DO, JUAN JOSE Garcia Patient Name: ? ASHLEIGH SILVEIRA : ??1960 ? Sex:Female ?Location: [place] [address]; [facility]; ? [address] [place] [address] [address] ?[place] [id number]- ? Radiology Report T12- L1: No disc herniation. ??No spinal canal stenosis or neuroforaminal narrowing. L1-L2: No disc herniation. ??No spinal canal stenosis. ??No neuroforaminal narrowing L2-L3: No disc herniation. ??No spinal canal stenosis or neuroforaminal narrowing.. L3-L4: No disc herniation. ??No spinal canal stenosis or neuroforaminal narrowing.. L4-L5: Mild circumferential disc bulging. ??No spinal canal stenosis or neuroforamina.. L5-S1: Mild circumferential disc bulging. ??Minimal right neuroforaminal narrowing. ??No spinal stenosis Unremarkable appearance of the overlying soft tissue and visualized retroperitoneal structures. No abnormal postcontrast enhancement. Mild dependent sacral edema. IMPRESSION: No high-grade spinal canal stenosis. ??No other acute MRI findings within the lumbar spine. I have personally reviewed the study and agree with the reported findings. Cassidy Guillaume MD Reading site: [facility] Final Report Dictated: 05/22/2024 5:54 am ?Dictated By: Angela Gonzalez MD Electronic Signature: ??05/22/2024 8:21 am ?? Signed By: CASSIDY GUILLAUME MD Report last revised on 05/22/2024 14:50 EST by CASSIDY GUILLAUME MD Admitting: ?LATONIA CRAIG, CHRISSY Azevedo Consulting: ?? JINA CRAIG, JUMA TELLEZ MD, HOLLIE MITCHELL MD, ?ANNA CANNON DO, JUAN JOSE Garcia [facility] Anatomical Region Laterality Modality Other 05/21/2024 10:0 3 PM EST Donnell Qureshi MD IMAGING-[facility] Edited Result - Final * TROPONIN T, HIGH SENSITIVITY (05/21/2024 12:52 PM EST) TROPONIN T. CARDIAC [facility] PT SER/PLAS QN HIGH SENSITIVITY 9 0 - 14 ng/L [facility] 05/21/2024 12:5 2 PM EST 05/21/2024 1:08 PM EST Donnell Carter Titus CRAIG LABORATORY Final Result [facility] [address] [place] [address] * ECHOCARDIOGRAM (05/21/2024 8:32 AM EST) REPORT Study ID: [id number] [facility] [address] [place] [address] Non- Invasive Cardiology Laboratory ? Transthoracic Echocardiogram Final Report Name: ASHLEIGH SILVEIRA ??Study Date: 05/21/2024 08:32 AM ?Patient Location: : 1960 ? Height: 65 in Age: 63 yrs ? Gender: Female ?Weight: 143 lb Reason For Study: Embolic event ? BSA: 1.7 m2 History: Embolic event Ordering Physician: KIM SOLORZANO Referring Physician: CHRISSY LINCOLN Performed By: Lashay Craig [facility] Fellow: MD Edith Sweeney Interpretation Summary The study was technically adequate. There is no comparison study available. A two-dimensional transthoracic echocardiogram was performed. A prominent pericardial fat pad is suggested. Ejection Fraction = 60-65%. There is mild mitral regurgitation. Left Ventricle The left ventricle is normal in size. There is normal left ventricular wall thickness. The left ventricular ejection fraction is normal. Ejection Fraction = 60-65%. Left ventricular systolic function is normal. The transmitral spectral Doppler flow pattern is normal for age. The left ventricular wall motion is normal. Right Ventricle The right ventricle is normal size. The right ventricular systolic function is normal. Atria The left atrial size is normal. Right atrial size is normal. The interatrial septum is intact with no evidence for an atrial septal defect. Mitral Valve The mitral valve leaflets appear thickened, but open well. There is no evidence of mitral valve prolapse. There is no mitral valve stenosis. There is mild mitral regurgitation. Tricuspid Valve The tricuspid valve is normal in structure and function. There is mild tricuspid regurgitation. Pulmonary Artery Systolic Pressure estimates from tricuspid regurgitation jet velocity is 23 mms of Hg. Pulmonary Artery Systolic Pressure estimates assume a Right Atrial pressure of 0-3 mm of Hg. Aortic Valve The aortic valve is trileaflet. The aortic valve opens well. Cusp calcification is mild. There is no aortic stenosis. No aortic regurgitation is present. Pulmonic Valve The pulmonic valve is not well seen, but is grossly normal. Trace pulmonic valvular regurgitation. Great Vessels The aortic root is normal size. The ascending aorta is normal in size. Inferior Vena Cava is normal suggesting a normal right atrial pressure. Pericardium/Pleur al A prominent pericardial fat pad is suggested. There is no pericardial effusion. MMode/2D Measurements \T\ Calculations IVSd: 1.0 cm ? LVIDd: 4.7 cm ? LVIDs: 2.9 cm ? LVPWd: 0.93 cm FS: 37.9 % ? Ao root diam: 3.1 cm EDV(Teich): 104.5 ml ? Ao root area: 7.7 cm2 ESV(Teich): 33.5 ml ?LA dimension: 3.6 cm asc Aorta Diam: 3.1 cm ? LVOT diam: 1.9 cm ? LVOT area: 3.0 cm2 TAPSE_phl: 2.2 cm ?IVC Diam_phl: 1.2 cm RA A4Cs_phl: 11.5 cm2 ?RV Base_phl: 3.4 cm LA Area AP2C: 18.7 cm2 ? LA Area AP4C: 18.4 cm2 LA Length: 5.1 cm ?LA Vol: 57.0 ml LA Vol Index: 33.2 ml/m2 Doppler Measurements \T\ Calculations MV E max zuly: 89.3 cm/sec MV A max zuly: 72.3 cm/sec ? MV dec slope: 650.9 cm/sec2 MV E/A: 1.2 ? MV dec time: 0.14 sec LV V1 max P.9 mmHg ?SV(LVOT): 76.1 ml LV V1 mean P.4 mmHg LV V1 max: 131.6 cm/sec LV V1 mean: 101.0 cm/sec LV V1 VTI: 25.6 cm TR max zuly: 226.1 cm/sec ?MV P1/2t-pr_phl: 40.2 msec TR max P.4 mmHg RV S Vel_phl: 12.8 cm/sec ? E/Lat E': 8.2 E/Med E': 7.6 Electronically Signed By: ? Josesito Bustamante DO ? 05/21/2024 05:44 PM [facility] CARDIOLOGY REPORTS Please click on link to see image. Authenticated by JOSESITO BUSTAMANTE DO [[id number]] on 05/21/2024 at 12:10:54 [facility] Comment:Missing Attachment A TTACHMENT Can be viewed in source system 05/21/2024 8:32 AM EST us Kim STEWART CARDIOVASCULAR-NO INBASK ET RTG Edited Result - Final [facility] [address] [place] [id number] * CARDIOVASCULAR TEST/PROCEDURE, UNSPECIFIED (05/21/2024) Narrative 05/21/2024 Ordered by an unspecified provider. Procedure Note Beka Stewart MD - 05/27/2024 1:33 PM EST Vascular Laboratory Report: Venous LE SVH History: Note: OP Indications: PE Venous Duplex Scan Report (Lower Extremity) Right Thrombus Left Thrombus Patency Imaged Patency Imaged External Iliac Com Fem. Patient No PatentNo Prof Fem. Patient No PatentNo Prox Fem Patient No PatentNo Dist Fem Patient No PatentNo Popliteal Patient No PatentNo Ant Tibial Post Tibial Patient No PatentNo Peroneal Patient No Partial Yes Prox GSV Mid GSV Dist GSV SSV Impressions: Final Comments: One of paired left peroneal veins partial compression and color filldefect consistent with acute DVT. The remainder of the venous duplex scan of the bilateral lower extremity showed no evidence of acute deep vein thrombosis in the visualizedsegments. The visualized veins were fully compressible with good respiratoryvariance and response to augmentation. Normal Doppler flow was noted. Results Called To: us Unknown Provider [facility] CARDIOVASCULAR-NO INBASKET RTG Final Result * CTA CHEST W/ CONTRAST (05/20/2024 10:57 PM EST) Pathologist [facility] RADRPT Patient Name: ? STGASHLEIGH SERNA: ??1960 ? Sex:Female ?Location: [facility]; [facility]; ? [facility] [address] [facility] [address] ?[place] [address] ? Radiology ACCESSION ? EXAM DATE/TIME ??PROCEDURE ? ORDERING ? STATUS ?PROVIDER [id number] ??05/20/2024 ? CTA Chest w/ ?LATONIA CRAIG, ? Auth 37 ?23:17 EST ? Contrast ?CHRISSY A ?(Verified) Reason For Exam (CTA Chest w/ Contrast) abnormal D dimer;Other - Populate Reason For Exam (Freetext) Report STUDY: CT chest with contrast, pulmonary artery embolism detection protocol INDICATION:Abnormal d-dimer. COMPARISON: PET/CT from 08/12/2019 TECHNIQUE: CT scan of the chest was performed utilizing the pulmonary artery embolism detection protocol following the rapid intravenous administration of 100 cc of Isovue 370. ??Coronal and sagittal reformatted images were generated, together with axial maximum intensity projection images of the lungs. \X201C\Adaptive Iterative Dose Reduction (AIDR) and NEMA XR 25 DOSE Check software, were used to reduce radiation dose to the patient.\X201D\ FINDINGS: PULMONARY ARTERIES: Acute pulmonary embolus seen in the right proximal to distal subsegmental lower lobe arteries. Multiple acute pulmonary emboli seen in the proximal segmental and multiple proximal to mid subsegmental arteries in the lower lobe. The main pulmonary trunk, right and left pulmonary arteries are opacified normally with no evidence of embolism. The main pulmonary artery is not dilated. ??No evidence for right heart strain, the RV/LV ratio is less than 1 LUNGS AND LARGE AIRWAYS: The trachea and mainstem bronchi are patent. Right greater than left interest lobular septal thickening, and right posterior, basilar atelectasis seen. Left basilar small irregular opacities seen in the description of the pulmonary emboli, likely small secondary lung infarcts/hemorrhage versus alveolar edema. Admitting: ?LATONIA CRAIG, CHRISSY Azevedo Consulting: ?? ANNA MITCHELL MD ; JUAN JOSE CANNON DO Patient Name: ? HEIDEASHLEIGH SERNA : ??1960 ? Sex:Female ?Location: [facility] - ; [facility]; ? [address] [place] [address] [address] ?[place] [address]- ? Radiology Report PLEURA: Fluid seen tracking along the left nature fissure. ??No pneumothorax.. MEDIASTINUM AND LISA: Few scattered subcentimeter mediastinal lymph nodes are seen. No hilar lymphadenopathy. ??There is a 0.7 mm right thyroid hypodensity/nodule, with macro calcification/rim calcification.. ??The esophagus is underdistended. HEART AND VESSELS: ??The heart is not enlarged. ??Trace pericardial effusion. ?? The thoracic aorta is non-aneurysmal with atherosclerotic calcifications. UPPER ABDOMEN: Scattered hepatic hypodensities, compatible with simple hepatic cysts. ??There is fluid seen surrounding the contracted gallbladder. ??No other cystic signs of inflammation/acute cholecystitis. This is likely related to third spacing. ??Incidental splenule. ??Other partially visualized upper abdominal structures are within normal limits. BONES AND SOFT TISSUES: No acute soft tissue abnormality. No acute osseous abnormality. IMPRESSION: 1.Multiple bilateral lower lobe acute segmental/subsegmen barb pulmonary emboli, more on the left compared to right. ??No evidence of right heart strain. ??No central pulmonary embolism. 2.Interstitial alveolar edema, right greater than left. ??There may be small left lower lobe pulmonary infarcts/hemorrhage in the distribution of left lower lobe pulmonary emboli vs regions of of alveolar edema 3.Incidental 0.7 cm right thyroid nodule, with macro/rim calcification. Recommend nonemergent thyroid ultrasound for further evaluation. Findings of bilateral segmental pulmonary embolism discussed by Dr. Gonzalez, Metal Mixer, with CHRISSY LINCOLN at 05/20/2024 11:33 PM. Attending review by Sameer Venegas.Wolfgang. I have personally reviewed the study and agree with the reported findings. Admitting: ?CHRISSY LINCOLN MD Consulting: ?? ANNA MITCHELL MD ; JUAN JOSE CANNON DO Patient Name: ? ASHLEIGH SILVEIRA : ??1960 ? Sex:Female ?Location: [place] [address]; [facility]; ? [facility] [address] ?[place] [address] ? Radiology Report Reading Site: [facility] Final Report Dictated: 05/20/2024 11:29 pm ? Dictated By: Angela Gonzalez MD Electronic Signature: ??05/21/2024 2:05 pm ?? Signed By: DIAZ MARQUES DO Admitting: ?LATONIA CRAIG, CHRISSY Azevedo Consulting: ?? ANNA MITCHELL MD ; KASSANDRA BARTON, JUAN JOSE Garcia [facility] 05/20/2024 10:5 7 PM EST Chrissy Lincoln MD CV IMAGING-[facility] Final Result Performing Organization Address [facility] Co de Phone Number [facility] [address] [place] [address] * OPIATE SCREEN URINE (05/20/2024 5:49 PM EST) Opiates (Urine) Negative Negative [facility] Comment: Result is unconfirmed and is to be used for medical purposes only. Unconfirmed results must not be used for non-medical purposes. 05/20/2024 5:49 PM EST 05/20/2024 5:51 PM EST us Kim Solorzano PA LABORATORY Final Re sult Performing Organization Address [facility]/ZIP Co de Phone Number [facility] [address] [place] [address] * BARBITURATE SCREEN URINE (05/20/2024 5:49 PM EST) Barbiturates (Urine) Negative Negative [facility] Comment: Result is unconfirmed and is to be used for medical purposes only. Unconfirmed results must not be used for non-medical purposes. 05/20/2024 5:49 PM EST 05/20/2024 5:51 PM EST Kim STEWART LABORATORY Final Re sult Performing Organization Address [facility] Co de Phone Number [facility] [address] [place] [address] * URINALYSIS WITH CULTURE IF INDICATED (05/20/2024 5:49 PM EST) Specific gravity (Urine) 1.016 1.003 - 1.030 [facility] pH (Urine) 6.0 5.0 - 9.0 [facility] Leukocyte esterase (Urine) Negative Negative [facility] Nitrite (Urine) Negative Negative [facility] Protein (Urine) Negative Negative mg/dL [facility] Glucose (Urine) Negative Negative mg/dL [facility] Ketones (Urine) Negative Negative mg/dL [facility] Urobilinogen (Urine) Normal Normal mg/dL [facility] Bilirubin (Urine) Negative [facility] Hemoglobin (Urine) Trace Negative [facility] Color (Urine) Light-Yellow [facility] Appearance (Urine) Clear Clear [facility] 05/20/2024 5:49 PM EST 05/20/2024 5:51 PM EST Kim STEWART LABORATORY Final Re sult Performing Organization Address [facility]/ZIP Co de Phone Number [facility] [address] [place] [id number] * AMPHETAMINE SCREEN URINE (05/20/2024 5:49 PM EST) Amphetamine (Urine) Negative Negative [facility] Comment: Result is unconfirmed and is to be used for medical purposes only. Unconfirmed results must not be used for non-medical purposes. 05/20/2024 5:49 PM EST 05/20/2024 5:51 PM EST Kim STEWART LABORATORY Final Re sult Performing Organization Address City/[facility]/ZIP Co de Phone Number [facility] [address] [place] [address] * CANNABINOID SCREEN URINE (05/20/2024 5:49 PM EST) Cannabinoids (Urine) Negative Negative [facility] 05/20/2024 5:49 PM EST 05/20/2024 5:51 PM EST Kim STEWART LABORATORY Final Re sult Performing Organization Address City/[facility]/ZIP Co de Phone Number [facility] [address] [place] [address] * BENZODIAZEPINE SCREEN URINE (05/20/2024 5:49 PM EST) Benzodiazepines (Urine) Negative Negative [facility] Comment: Result is unconfirmed and is to be used for medical purposes only. Unconfirmed results must not be used for non-medical purposes. 05/20/2024 5:49 PM EST 05/20/2024 5:51 PM EST Kim STEWART LABORATORY Final Re sult Performing Organization Address [facility] Co de Phone Number [facility] [address] [place] [address] * COCAINE SCREEN URINE (05/20/2024 5:49 PM EST) Cocaine (Urine) Negative Negative [facility] Comment: Result is unconfirmed and is to be used for medical purposes only. Unconfirmed results must not be used for non-medical purposes. 05/20/2024 5:49 PM EST 05/20/2024 5:51 PM EST Kim STEWART LABORATORY Final Re sult Performing Organization Address City/[facility]/ZIP Co de Phone Number [facility] [address] [place] [address] * OXYCODONE SCREEN (05/20/2024 5:49 PM EST) Oxycodone (Urine) Negative Negative [facility] 05/20/2024 5:49 PM EST 05/20/2024 5:51 PM EST Kim STEWART LABORATORY Final Re sult [facility] [address] [place] [address] * (ABNORMAL) D DIMER (05/20/2024 5:39 PM EST) Fibrin D-dimer FEU (Platelet Poor Plasma) 12.09(C) <=0.49 mg/L FEU [facility] Comment: Critical called to and read back by Pedrito Garza RN 05/20/2024 18:25:15 EST TS According to the assay rn call center's published package insert, a normal (<0.50 mg/L FEU) D-dimer result in conjunction with a non-high clinical probability assessment, excludes deep vein thrombosis (DVT) and pulmonary embolism (PE) with high sensitivity. D-dimer values increase with age and this can make VTE exclusion of an older population difficult. To address this, the [employer], based on best available evidence and recent guidelines, recommends that clinicians use age-adjusted D-dimer thresholds in patients greater than 50 years of age with; a) a low probability of PE who do not meet all Pulmonary Embolism Rule Out Criteria, or b) in those with intermediate probability of PE. The formula for an age-adjusted D-dimer cut-off is 'age/100'. For example, a 60 year old patient would have an age-adjustment cut-off of 0.60 mg/L FEU and an 80 year old 0.80 mg/L FEU. 05/20/2024 5:39 PM EST 05/20/2024 5:42 PM EST Chrissy Lincoln MD LABORATORY Final Result [facility] [address] [place] [address] * (ABNORMAL) RHEUMATOID FACTOR QUANTITATIVE (05/20/2024 3:45 PM EST) Pathologist [facility] Rheumatoid Factor (Quant) 26.3(H) <14.0 int_units/ mL [facility] Comment: Performed at: ??RN - [facility] [address] ??[id number] Revenue Analyst: Raquel English MD, Phone: ??[phone] 05/20/2024 3:45 PM EST 05/20/2024 4:16 PM EST Kim STEWART LABORATORY Final Re sult Performing Organization Address [facility]/ZIP Co de Phone Number [facility] [address] [place] [address] * (ABNORMAL) C REACTIVE PROTEIN QUANT (05/20/2024 3:45 PM EST) [facility] C reactive protein 237.60(H) 0.00 - 4.90 mg/L [facility] Comment:result by auto dilut ion 05/20/2024 3:45 PM EST 05/20/2024 4:04 PM EST Kim STEWART LABORATORY Final Re sult Performing Organization Address [facility]/ZIP Co de Phone Number [facility] [address] [place] [phone] * (ABNORMAL) SEDIMENTATION RATE (05/20/2024 3:45 PM EST) Pathologist [facility] SED RATE 25(H) 2 - 15 mm/hr [facility] 05/20/2024 3:45 PM EST 05/20/2024 4:04 PM EST Kim STEWART LABORATORY Final Re sult Performing Organization Address [facility]/ZIP Co de Phone Number [facility] [address] [place] [phone] * (ABNORMAL) CBC (05/20/2024 3:45 PM EST) WBC 17.4(H) 3.9 - 11.0 x10(3)/[facility] RBC 3.29(L) 3.70 - 5.10 million/mc L [facility] HGB 9.5(L) 11.5 - 12.5 g/dL [facility] HCT 29.5(L) 34.0 - 44.0 % [facility] MCV 90 80 - 100 fL [facility] MCH 29 27 - 33 pg [facility] MCHC 32 31 - 36 g/dL [facility] RDW-SD 45 [facility] PLATELET COUNT 184 150 - 450 x10(3)/[facility] MPV 9.4 7.0 - 11.0 fL [facility] 05/20/2024 3:45 PM EST 05/20/2024 4:04 PM EST Kim STEWART LABORATORY Final Re sult Performing Organization Address City/[facility]/ZIP Co de Phone Number [facility] [address] [place] [address] * THYROID STIMULATING HORMONE (05/20/2024 3:45 PM EST) Pathologist [facility] TSH 0.632 0.450 - 4.500 uU/mL [facility] Comment: Thyroid Fannin: If the TSH is normal, no additional testing is performed unless individually ordered. 05/20/2024 3:45 PM EST 05/20/2024 4:04 PM EST Kim STEWART LABORATORY Final Re sult [facility] [address] [place] [address] * LDH (05/20/2024 3:45 PM EST) Pathologist [facility] Lactate dehydrogenase 147 0 - 215 U/L [facility] 05/20/2024 3:45 PM EST 05/20/2024 4:04 PM EST Kim STEWART LABORATORY Final Re sult Performing Organization Address [facility] de Phone Number [facility] [address] [place] [address] * THYROXINE FREE (05/20/2024 3:45 PM EST) FT4 1.130 0.700 - 1.700 ng/dL [facility] 05/20/2024 3:45 PM EST 05/20/2024 4:04 PM EST Kim STEWART LABORATORY Final Re sult Performing Organization Address [facility] de Phone Number [facility] [address] [place] [address] * CPK (05/20/2024 3:45 PM EST) CPK 43 24 - 173 U/L [facility] 05/20/2024 3:45 PM EST 05/20/2024 4:04 PM EST Kim STEWART LABORATORY Final Re sult Performing Organization Address [facility] de Phone Number [facility] [address] [place] [address] * CT BRAIN W/O CONTRAST (05/20/2024 8:24 AM EST) RADRPT Patient Name: ? HEIDEASHLEIGH SERNA : ??1960 ? Sex:Female ?Location: [facility] - 34; 3416; ? [facility] [address] ?[place] [address] ? Radiology ACCESSION ? EXAM DATE/TIME ??PROCEDURE ? ORDERING ? STATUS ?PROVIDER [id number] ??05/20/2024 ? CT Head or ?JEANINE STEWART, ?? Auth 92 ?08:31 EST ? Brain w/o ? KIM ?(Verified) ?Contrast Reason For Exam (CT Head or Brain w/o Contrast) Head Injury Report Unenhanced CT Scan of the Brain INDICATION: Head injury TECHNIQUE: Axial acquisition through the brain performed without contrast material. ??Coronal and sagittal reconstructions created. Adaptive Iterative Dose Reduction (AIDR) and NEMA XR 25 DOSE Check software, were used to reduce radiation dose to the patient. COMPARISON: Head CT from 05/05/2024 FINDINGS: Ventricles, Sulci and extra axial spaces: The ventricles, sulci and cisterns are symmetric and prominent in keeping with age-related volume loss without hydrocephalous. Brain Parenchyma: No acute hemorrhage or infarct is seen. ??No mass, shift of midline structures or vasogenic edema. Jj white differentiation is preserved. Vascular: No intracranial atherosclerotic calcifications. There is no evidence of hyperdense MCA or basilar artery to suggest intraluminal thrombus. Skull Base: Sella and pineal gland are unremarkable. Orbits: The orbits are unremarkable. Paranasal sinuses: The visualized paranasal sinuses and mastoid air cells are clear.. Bones and soft tissues: The calvarium is intact. Redemonstrated tiny left frontal scalp swelling. IMPRESSION: Admitting: ?CHRISSY LINCOLN MD Consulting: ?? GEOFF CRAIG, HOLLIE Johnson Patient Name: ? ASHLEIGH SILVEIRA DOB: ??1960 ? Sex:Female ?Location: [facility] - 34; 3416; ? [facility] [address] ?[place] [id number] ? Radiology Report No interval change from the prior exam. No acute intracranial abnormality. Reading site: [facility] Final Report Dictated: 05/20/2024 5:00 pm ?Dictated By: RABIA RAUSCH MD Electronic Signature: ??05/20/2024 5:05 pm ?? Signed By: RABIA RAUSCH MD Admitting: ?CHRISSY LINCOLN MD Consulting: ?? GEOFF CRAIG, MONIK [facility] Anatomical Region Laterality Modality Other 05/20/2024 8:24 AM EST us Kim STEWART IMAGING-[facility] Final Re sult * RESPIRATORY VIRUS COVID-19 FLU A+B RSV PCR (05/20/2024 6:34 AM EST) SARS-COV-2 RNA Negative [address] [facility] Influenza A Negative Negative [facility] Influenza B Negative Negative [facility] Respiratory syncytial virus RNA Negative Negative [facility] 05/20/2024 6:34 AM EST 05/20/2024 6:39 AM EST us Kim STEWART LABORATORY Final Re sult [facility] [address] [place] [address] * CHEST, 1 VIEW (05/20/2024 6:30 AM EST) RADRPT Patient Name: ? ASHLEIGH SILVEIRA : ??1960 ? Sex:Female ?Location: [place] [address]; [facility]; ? [facility] [address] ?[place] [address]- ? Radiology ACCESSION ? EXAM DATE/TIME ??PROCEDURE ? ORDERING ? STATUS ?PROVIDER [id number] ??05/20/2024 ? XR Chest 1 ?JEANINE STEWART, ?? Auth 36 ?06:37 EST ? View ?KIM ?(Verified) Reason For Exam (XR Chest 1 View) Tachycardia Report AP UPRIGHT PORTABLE CHEST RADIOGRAPH AT 06:17 HOURS INDICATION: Tachycardia. COMPARISON STUDY: Chest radiograph latest dated 05/05/2024. FINDINGS: Unchanged mild rightward tracheal deviation . Mild background of pulmonary vascular congestion. ??No focal consolidation. No pleural effusion is seen. No pneumothorax is seen. The heart is normal in size. ??There is atherosclerosis of the thoracic aorta. ??Left upper lung/mediastinal post surgical changes noted. No surrounding soft tissue abnormalities. No acute osseous abnormalities. IMPRESSION: Mild pulmonary vascular congestion. ??No focal consolidation. Attending review by Dr. Rabia Rausch, 05/21/2024 12:01 AM. I have personally reviewed the case and agree with the reported findings. Reading site: [facility] Final Report Dictated: 05/20/2024 7:10 am ?Dictated By: Angela Gonzalez MD Electronic Signature: ??05/21/2024 0:02 am ?? Signed By: RABIA RAUSCH MD Admitting: ?LATONIA CRAIG, CHRISSY Azevedo Consulting: ?? GEOFF CRAIG, [facility] Anatomical Region Laterality Modality Other 05/20/2024 6:30 AM EST us Kim Solorzano PA IMAGING-[facility] Final Re sult * LAMOTRIGINE LEVEL (05/20/2024 5:42 AM EST) Lamotrigine 9.3 2.0 - 20.0 mcg/mL [facility] Comment: ?Detection Limit = 1.0 Performed at: ?? - [facility] ??[id number] Revenue Analyst: Maranda Mon MD, Phone: ??[phone] 05/20/2024 5:42 AM EST 05/20/2024 6:09 AM EST us Kim Solorzano PA LABORATORY Final Re sult Performing Organization Address [facility] Co de Phone Number [facility] [address] [place] [address] * ELECTROCARDIOGRAM, TRACING (05/20/2024 12:26 AM EST) T-40 HORIZONTAL AXIS -76 degree [facility] QTCF 435 msec [facility] Q ONSET 499 msec [facility] RR INTERVAL 496 msec [facility] RAD I-40 FRONT AXIS -50 degree [facility] P FRONT AXIS degree [facility] ED EKG-CERNERCV - ABNORMAL ECG - Atrial fibrillation [facility] Comment:Missing Attachment B [id number] Can be viewed in source system T WAVE AXIS 1 degree [facility] RAD I-40 HORIZONTAL AXIS 65 degree [facility] HEART RATE 121 bpm [facility] RAD P HORIZONTAL AXIS degree [facility] QTCB 488 msec [facility] T HORIZONTAL AXIS 53 degree [facility] P DURATION 132 msec [facility] QT INTERVAL 344 msec [facility] RAD S-T FRONT AXIS -[address] [facility] RAD T-40 FRONT AXIS degree [facility] QRS AXIS 64 degree [facility] TN INTERVAL msec [facility] RAD QRSD INTERVAL 96 msec [facility] RAD S-T HORIZONTAL AXIS 213 degree [facility] QRS HORIZONTAL AXIS -4 degree [facility] ATRIAL RATE 123 msec [facility] 05/20/2024 12:2 6 AM EST us Unknown Provider [facility] CARDIOVASCULAR-NO INBASKET RTG Final Result Performing Organization Address [facility]/ZIP Co de Phone Number [facility] [address] [place] [address] * (ABNORMAL) URINALYSIS MICROSCOPIC EXAM (05/19/2024 10:59 PM EST) Pathologist [facility] WBC (Urine) 0-10 0 - 10 /hpf [facility] RBC (Urine Sed) 3-5(A) 0 - 2 /hpf [facility] Bacteria (Urine) None Seen None Seen /hpf [facility] Epithelial cells.squamous (Urine sed) None Seen None Seen /hpf [facility] 05/19/2024 10:5 9 PM EST 05/19/2024 11:04 PM EST us Unknown Provider [facility] LABORATORY Final Resul t Performing Organization Address City/[facility]/ZIP Co de Phone Number [facility] [address] [place] [address] * (ABNORMAL) URINALYSIS AUTO W/MICROSCOPIC (05/19/2024 10:59 PM EST) [facility] Specific gravity (Urine) 1.038(H) 1.003 - 1.030 [facility] pH (Urine) 6.5 5.0 - 9.0 [facility] Leukocyte esterase (Urine) Negative Negative [facility] Nitrite (Urine) Negative Negative [facility] Protein (Urine) Negative Negative mg/dL [facility] Glucose (Urine) Negative Negative mg/dL [facility] Ketones (Urine) Negative Negative mg/dL [facility] Urobilinogen (Urine) Normal Normal mg/dL [facility] Bilirubin (Urine) Negative [facility] Hemoglobin (Urine) Trace Negative [facility] Color (Urine) Light-Yellow [facility] Appearance (Urine) Clear Clear [facility] 05/19/2024 10:5 9 PM EST 05/19/2024 11:04 PM EST us Unknown Provider [facility] LABORATORY Final Resul t Performing Organization Address [facility]/ZIP Co de Phone Number [facility] [address] [place] [address] * CT ABDOMEN AND PELVIS COMBINED W CONTRAST (05/19/2024 9:46 PM EST) Pathologist [facility] RADRPT Patient Name: ? STGERMAIN, ASHLEIGH : ??1960 ? Sex:Female ?Location: [facility] [address] ?[place] [address]- ? Radiology ACCESSION ? EXAM DATE/TIME ??PROCEDURE ? ORDERING ? STATUS ?[id number] ??05/19/2024 ? CT Abdomen ?ELISEO CRAIG, ? Auth 73 ?21:59 EST ? And Pelvis W/ ?? BEAULIEU ? (Verified) ?Contrast Reason For Exam (CT Abdomen And Pelvis W/ Contrast) Abdominal Pain Generalized Report CT ABDOMEN AND PELVIS WITH INTRAVENOUS CONTRAST TECHNIQUE: CT scan of the abdomen and pelvis was performed following the intravenous administration of 80 cc of Isovue 370. Coronal and sagittal reformatted images were generated. Adaptive Iterative Dose Reduction (AIDR) and NEMA XR 25 DOSE Check software, were used to reduce radiation dose to the patient. INDICATION: Abdominal pain, generalized COMPARISON: PET/CT dated 08/11/2021. FINDINGS: LOWER THORAX: ??The heart is normal in size. No pericardial effusion. No focal consolidation in the visualized lungs. ??Mild bibasilar atelectasis. No pleural effusion. HEPATOBILIARY: ??The liver is normal in size and contour. Multiple hepatic hypodensities compatible with simple cysts, largest measures 2.0 cm in the liver segment 5. No intrahepatic or extrahepatic biliary ductal dilatation. The gallbladder is physiologic. SPLEEN: ??The spleen is not enlarged. No focal lesion is seen. PANCREAS: ??Unremarkable. The pancreatic duct is not dilated. ADRENAL GLANDS: ??No nodules. KIDNEYS AND UPPER URETERS: ??The bilateral kidneys enhance symmetrically. They appear normal in size and position. No hydronephrosis or hydroureters. Admitting: ?ELISEO CRAIG, CHRISTOFER Consulting: Patient Name: ? ASHLEIGH SILVEIRA : ??1960 ? Sex:Female ?Location: [address] ?[place] [address]- ? Radiology Report STOMACH/GI TRACT: ??Small amount of fluid seen in the distal esophagus, can be seen in gastroesophageal reflux. The stomach is distended with ingested contents. The caliber and wall thickness of the small and large bowel loops are within limits of normal. Unremarkable appendix. PELVIC STRUCTURES AND URINARY BLADDER: The urinary bladder is well distended and unremarkable. No abnormal pelvic masses. PERITONEUM AND RETROPERITONEUM: ??No free or loculated fluid. No free air. Anteverted uterus within normal limits. LYMPH NODES: ??No lymph node enlargement by CT size criteria. VESSELS: ??The abdominal aorta is nonaneurysmal. The visualized abdominal and pelvic vessels enhance homogeneously. BONES AND SOFT TISSUES: No acute soft tissue abnormality.No acute osseous abnormality. IMPRESSION: 1.No acute intra-abdominal/pelv ic pathology. 2.Fluid seen in the distal esophagus, can be seen in gastroesophageal reflux. Attending review by Dr. Perez, 05/19/2024 11:45 PM. I have personally reviewed the case and agree with the reported findings. Final Report Dictated: 05/19/2024 10:23 pm ? Dictated By: Angela Gonzalez MD Electronic Signature: ??05/19/2024 11:46 pm ??Signed By: RODNEY PEREZ MD Admitting: ?CHRISTOFER GOMES MD Consulting: [facility] Anatomical Region Laterality Modality Other 05/19/2024 9:46 PM EST us Unknown Provider [facility] IMAGING-[facility] Final Resul t * LIPASE LEVEL (05/19/2024 9:15 PM EST) Lipase 17 0 - 59 U/L [facility] 05/19/2024 9:15 PM EST 05/19/2024 9:17 PM EST us Unknown Provider [facility] LABORATORY Final Resul t [facility] [address] [place] [address] * CT SCAN OF SPINE (05/05/2024) 05/05/2024 Narrative 05/05/2024 Ordered by an unspecified provider. us Unknown Provider GENERAL IMAGING- OTHER Final Re sult * XRAY ELBOW COMPLETE MIN 3 VWS (05/05/2024) 05/05/2024 Narrative 05/05/2024 Ordered by an unspecified provider. us Unknown Provider GENERAL IMAGING- OTHER Final Re sult * XRAY CHEST 2 VIEWS PA & LAT (05/05/2024) 05/05/2024 Narrative 05/05/2024 Ordered by an unspecified provider. us Unknown Provider GENERAL IMAGING- OTHER Final Re sult * CT HEAD/BRAIN W/O CONTRAST THEN W/CONTRAST AND MORE SECTIONS (05/05/2024) 05/05/2024 Narrative 05/05/2024 Ordered by an unspecified provider. us Unknown Provider CONTRAST STUDY- OTHER Final Res ult * MAMMOGRAM SCREENING TOMOSYNTHESIS, BILATERAL FC (01/11/2024 5:30 PM EDT) Anatomical Region Laterality Modality BREAST Bilateral Mammography Impressions 01/22/2024 10:10 AM EDT : No mammographic evidence of malignancy BI-RADS: 1 - Negative (overall) RECOMMENDATION: ?- Routine Screening Mammogram. A result letter has been sent to the patient. Narrative 01/22/2024 10:10 AM EDT Name: Ashleigh Stout Germain Exam Date: 01/11/24 [facility] [address], [place] [address] EXAMINATION: SCREENING MAMMOGRAM HISTORY: Screening TECHNIQUE: Standard Bilateral 2D digital mammography and tomosynthesis were obtained and interpreted with CAD COMPARISON: Comparison is made to prior exams dated back to 2020 BREAST COMPOSITION: The breasts are heterogeneously dense, which may obscure small masses. FINDINGS: There are no suspicious masses, calcifications or areas of unexplained architectural distortion. Alfreda Costa DO G MAMMO ORDERABLES Final Resul t * LIPID PANEL WITH REFLEX TO DIRECT LDL (08/08/2023 11:13 AM EDT) Cholesterol 148 <200 mg/dL [facility] HDL Cholesterol 66 > OR = 50 mg/dL [facility] Triglyceride 74 <150 mg/dL [facility] LDL Cholesterol 67 mg/dL (calc) [facility] Comment: Reference range: <100 Desirable range <100 mg/dL for primary prevention; ?? <70 mg/dL for patients with CHD or diabetic patients with > or = 2 CHD risk factors. LDL-C is now calculated using the Walter calculation, which is a validated novel method providing better accuracy than the Friedewald equation in the estimation of LDL-C. Quentin SS et al. JAMEE. 2013;310(57): 8025-3940 (http://education.MVious Xotics/faq/ABL151) CHOL/HDL Ratio 2.2 <5.0 (calc) [facility] Cholesterol Non-HDL 82 <130 mg/dL (calc) [facility] Comment: For patients with diabetes plus 1 major ASCVD risk factor, treating to a non-HDL-C goal of <100 mg/dL (LDL-C of <70 mg/dL) is considered a therapeutic option. 08/08/2023 11:1 3 AM EDT 08/08/2023 7:11 PM EDT Narrative Resulting Agency Comment [id number] Deanne STEW[facility]ORAT[facility] Final Result Performing Organization Address City/State/[facility] Co de Phone Number [facility] [address] [place] [address] * THINPREP TIS PAP AND HPV RNA, HR E6/E7, TMA (07/15/2022 2:35 PM EDT) Clinical information Postmenopausal [facility] Date last menstrual period POSTMENOPAUSAL [facility] Date of previous PAP smear 07/22/2016 [facility] Date of previous biopsy NONE GIVEN [facility] Specimen source (Cvx/Vag) Cervix [facility] Statement of Adequacy (Cvx/Vag) SATISFACTORY FOR EVALUATION [facility] Cytology, Pap Smear Negative for intraepithelial lesion or malignancy. Atrophic pattern; predominantly parabasal cells [facility] Cytology study comment (Cvx/Vag) This Pap test has been evaluated with computer assisted technology. [facility] Animal Breeder (Cvx/Vag) NAOMY GREEN(ASCP) CT screening location: [place] [address] [facility] COMMENT SEE NOTE [facility] Comment: EXPLANATORY NOTE: The Pap is a screening test for cervical cancer. It is not a diagnostic test and is subject to false negative and false positive results. It is most reliable when a satisfactory sample, regularly obtained, is submitted with relevant clinical findings and history, and when the Pap result is evaluated along with historic and current clinical information. HPV MRNA E6/E7 Not Detected Not Detected [facility] Comment: Methodology: Telephone Operator Receptionist-Mediated Amplification This assay detects E6/E7 viral messenger RNA (mRNA) from 14 high-risk HPV types (16,18,31,33,35,39,45,51,52,56,58,59,66,68). Cervical sources are required for HPV testing. If a vaginal source from a patient who has had a total hysterectomy with removal of cervix was submitted, please contact the testing laboratory for alternative testing options. For additional information, please refer to http://education.Drimmi/faq/CEA805z3 (This link if provided for information/ educational purposes only.) Cervical 07/15/2022 2:35 PM EDT 07/16/2022 5:57 AM EDT Narrative Resulting Agency Comment [id number] us Amiekel Lloydkitty [facility] Final Result [facility] [address] [place] [address] * CT ANGIOGRAM HEAD AND NECK W CONTRAST STROKE ACTIVATION (10/19/2020 1:47 AM EDT) 10/19/2020 1:47 AM EDT Narrative [facility] - 10/19/2020 1:47 AM EDT Comparison: None available. 3-D reformats were obtained. FINDINGS: CTA NECK: The aortic arch shows atheromatous changes without aneurysmal dilatation. The arch of aorta shows conventional branching pattern. Bilateral common, internal carotid arteries are normal in caliber. The vertebral arteries are normal in caliber. The right vertebral artery is dominant. CTA HEAD: The internal carotid arteries are normal in caliber. The anterior cerebral arteries are normal in caliber. The middle cerebral arteries and their distal branches are normal in caliber. The vertebral arteries, the basilar artery and the posterior cerebral arteries are normal in caliber. The left posterior communicating artery is patent. The right posterior, indicating arteries are not well visualized. The major dural venous sinuses grossly appear unremarkable. Nonvascular findings: Heterogenous subcentimeter size nodule in the right lobe of the thyroid gland. Biapical pleuroparenchymal scarring is noted with a 9 mm nodule with spiculated margins in the left apex. Otherwise, the included bilateral upper lungs do not show significant abnormality. The osseous cervical spine appears unremarkable. IMPRESSION: 1. ??No large vessel occlusion, hemodynamically significant stenosis, dissection, aneurysm or vascular malformation is identified. 2. ??A 9 mm nodule with spiculated margins in the left lung apex. Please refer to the Fleischner Society guidelines for follow-up recommendations as described below. Fleischner Society 2017 Guidelines for Management of Incidentally Detected Pulmonary Nodules in Adults either low or high risk patients consider follow-up CT at 3 months, and/or CT-PET, and/or biopsy Low risk patients: minimal or absent history of smoking and or other known risk factors High risk patients: history of smoking or of other known risk factors (e.g. first degree relative with lung cancer, or exposure to asbestos, radon, uranium) Note: These guidelines do not apply to patients younger than 35 years, immunocompromised patients, or patients with cancer. A Incidental - ED actionable finding has been communicated via the Witel system on 10/19/2020 1:47 AM. ??Receipt of this communication by the responsible provider will be documented in Witel upon receiving acknowledgement, Message ID [id number] If this radiology report contains a blank impression section, it is an incomplete radiology report. ??Please contact the interpreting radiologist or applicable radiology division as soon as possible to obtain the completed interpretation. ? Workstation ID: [id number] Up-to-date CT equipment and radiation dose reduction techniques were employed. CTDIvol: 2.9 - 22.9 mGy. DLP: 905 mGy-cm. Procedure Note [facility], Unknown Provider - 10/19/2020 Comparison: None available. 3-D reformats were obtained. FINDINGS: CTA NECK: The aortic arch shows atheromatous changes without aneurysmal dilatation.The arch of aorta shows conventional branching pattern. Bilateral common,internal carotid arteries are normal in caliber. The vertebral arteriesare normal in caliber. The right vertebral artery is dominant. CTA HEAD: The internal carotid arteries are normal in caliber. The anterior cerebralarteries are normal in caliber. The middle cerebral arteries and theirdistal branches are normal in caliber. The vertebral arteries, the basilarartery and the posterior cerebral arteries are normal in caliber. The left posterior communicatingartery is patent. The right posterior, indicating arteries are not wellvisualized. The major dural venous sinuses grossly appear unremarkable. Nonvascular findings: Heterogenous subcentimeter size nodule in the rightlobe of the thyroid gland. Biapical pleuroparenchymal scarring is notedwith a 9 mm nodule with spiculated margins in the left apex. Otherwise,the included bilateral upper lungs do not show significant abnormality. The osseous cervical spine appearsunremarkable. IMPRESSION: 1. No large vessel occlusion, hemodynamically significant stenosis,dissection, aneurysm or vascular malformation is identified. 2. A 9 mm nodule with spiculated margins in the left lung apex. Pleaserefer to the Fleischner Society guidelines for follow-up recommendationsas described below. Fleischner Society 2017 Guidelines for Management of Incidentally DetectedPulmonary Nodules in Adults either low or high risk patients consider follow-up CT at 3 months, and/or CT-PET, and/or biopsy Low risk patients: minimal or absent history of smoking and or other knownrisk factors High risk patients: history of smoking or of other known risk factors(e.g. first degree relative with lung cancer, or exposure to asbestos,radon, uranium) Note: These guidelines do not apply to patients younger than 35 years,immunocompromised patients, or patients with cancer. A Incidental - ED actionable finding has been communicated via PetLove Findings system on 10/19/2020 1:47 AM. Receipt ofthis communication by the responsible provider will be documented inWaremakers Actionable Findings upon receiving acknowledgement, Message ID [id number] If this radiology report contains a blank impression section, it is anincomplete radiology report. Please contact the interpreting radiologistor applicable radiology division as soon as possible to obtain thecompleted interpretation. Workstation ID: [id number] Up-to-date CT equipment and radiation dose reduction techniques wereemployed. CTDIvol: 2.9 - 22.9 mGy. DLP: 905 mGy-cm. us Unknown Provider [facility] CARDIOVASCULAR IMAGING-NAVEED SS Final Result [facility] [place] [address] [address] * HEPATITIS C AB WITH REFLEX TO RNA PCR, SERUM (05/26/2018 3:52 PM EST) Hepatitis C virus Ab NON-REACTI VE NON-REACT EBEN [facility] Hepatitis C virus Ab Signal/Cutoff 0.02 <1.00 [facility] 05/26/2018 3:52 PM EST 05/26/2018 9:05 PM EST Narrative Resulting Agency Comment [id number] us Elizabet Hair MD LABORATORY Final Res ult [facility] [address] [facility] [address] * DXA BONE DENSITY STUDY AXIAL (LSSPINE, HIP) (DX: POSTMENOPAUSAL Z78.0/ V49.81 ) FC (07/12/2017 2:44PM EDT) Anatomical Region Laterality Modality BONE DENSITY Impressions 07/14/2017 7:59 PM EDT : All patients should be treated with appropriate dosages of calcium and vitamin D as necessary to meet recommended daily requirements. Weight bearing exercise and resistive weight training may also be helpful if clinically appropriate. Avoidance of tobacco and excessive alcohol is recommended. FOLLOWUP: Approximately 2-3 years after menopause or as clinically indicated. WHO DIAGNOSTIC CRITERIA: (Applicable for ??postmenopausal women and men age 50 and older.) Normal: ?T-score at or above -1 SD Osteopenia: ?T-score between -1 and -2.5 SD Osteoporosis: ?T-score at or below -2.5 SD Established (Severe) Osteoporosis : T-score at or below -2.5 SD plus ?? fragility fracture Narrative 07/14/2017 7:59 PM EDT DUAL-ENERGY X-RAY ABSORPTIOMETRY (DXA) SCAN: ?? DXA MODEL: Sifteo SL in fast scan mode RISK FACTORS: The patient reports none. TREATMENT: The patient reports none. LIMITATIONS: None. RESULTS: Lumbar Spine L1-L4: 1.041 g/cm2, T-score -0.1, Z-score 1.0 Left Femoral Neck: 0.678 g/cm2, ??T- score -1.5, Z-score -0.5 Left Total Hip: 0.774 g/cm2, ??T-score -1.4, Z-score -0.7 DIAGNOSIS: Bone density is within range expected for patient's age. Note: World Health Organization guidelines are not validated for premenopausal women. ??In this population, Z-scores, not T-scores, are preferred. A Z-score of -2.0 or lower is defined as below the expected range for age and a Z-score above -2.0 is within the expected range for age. 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
--- OUTSIDE RECORDS SUMMARY | 2024-06-25 19:19 | XMS_ITS | Encounter Summary ---
Demographics Address [address] [place] [address] Mobile Phone Home Phone Email Address Preferred Language Moroccan Marital Status Church Affiliation Unknown Race White Ethnic Group Unknown Author Organization [facility] Address [address] [place] [address] Support Name Relationship Address Phone Houston Haas Emergency Contact [address] [place] [address] Shana Danielle Emergency Contact [address] [place] [address] Care Team Providers Care Awning Craftsperson Name Role Phone CostaAlfreda Primary Care Provider [phone] Reason for Visit * Reason Comments VNA Communication Encounter Details Date Type Department Care Team ([facility] st Contact Info) Description 06/01/2024 Telephone [facility] Infectious Disease [address] [facility] [address] [place] [address] Juma Hernandez MD [address] [id number] VNA Communication Social History Tobacco Use Types Packs/Day [...] encounter Miscellaneous Notes * Telephone Encounter - Herminia Jose RN - 06/12/2024 8:41 AM EST Chart reviewed- noted patient has f/u with [facility] ID Dr. Herman Sutherland on 06/20/24. * Telephone Encounter - Roxana Casanova LVN LPN - 06/04/2024 5:04 PM EST Currently inpatient at [facility] Will follow [facility] with [facility] in morning 06/05 * Telephone Encounter - Oma Blake - 06/04/2024 1:31 PM EST Received call from Verena with [facility] in regards to message below. Verena asking if we had any updates. Requesting nursing return call when available at [phone] Nursing please advise * Telephone Encounter - Roxana Casanova LVN LPN - 06/01/2024 4:05 PM EST [facility] calling stating they admitted patient from hospital and will be on iv ceftriaxone 2 grams daily with end date 06/04/24 asking for orders Reviewed above with dr hernandez and he advised stop date of iv ceftriaxone is on 06/04 but at this time he advised vna not to remove iv line and follow up with ID Sunday 06/04 for further orders as he isawaiting culture result to determine if patient will continue on a different iv antibiotic Called and spoke with kanika at [facility] and they advised they will follow up with us Sunday 06/04 for further orders Noted patient currently at [facility] ER documented in this encounter Plan of Treatment Upcoming Encounters Date Type Department Care Team (Late st Contact Info) Description 06/27/2024 11:00 AM EST Office Visit [facility] [address] [place] [address] Deanne Ibarra PA [address] [place] [address] HFU 08/16/2024 10:25 AM EDT CPE - Comprehensive Physical Exam [facility] [address] [place] [address] Alfreda Costa DO [address] [place] [address] Physical - LETTER SENT TO [facility] 02/27/2025 1:15 PM EST Radiology [facility]. Mammography [address] [place] [id number] documented as of this encounter Visit Diagnoses Not on filedocumented in this encounter Care Teams Awning Craftsperson Relationship Specialty Start Date End Date Alfreda Costa DO [address] [place] [address] PCP - General Internal Medicine 09/03/19 documented as of this encounter
--- OUTSIDE RECORDS SUMMARY | 2024-06-25 19:19 | XMS_ITS | Encounter Summary ---
Demographics Address [address] [place] [address] Mobile Phone Home Phone Email Address Preferred Language Mauritanian Marital Status Zoroastrianism Affiliation Unknown Race White Ethnic Group Unknown Author Organization [facility] Address [address] [place] [address] Support Name Relationship Address Phone [place] Haas Emergency Contact [address] [place] [address] Shana Danielle Emergency Contact [address] [place] [address] Care Team Providers Care Exterminator Helper Termite Name Role Phone Alfreda Costa DO Primary Care Provider [phone] Reason for Visit * Reason Comments Hospital F/U Encounter Details Date Type Department Care Team (Late st Contact Info) Description 06/18/2024 Telephone [facility] [address] [place] [id number] Alfreda Costa DO [address] [place] [address] Hospital F/U Social History Tobacco Use Types [...] encounter Miscellaneous Notes * Telephone Encounter - Lilly Adkins RN - 06/18/2024 10:33 AM EST Plan/disposition: Future Appointments Date Time Provider Department Phone 06/27/24 11:00 AM Deanne Ibarra PA [facility] [phone] 08/16/24 10:25 AM Alfreda Costa DO [facility] [phone] 02/27/25 1:15 PM [facility]TER [facility]ITER MAMMOGRAPHY [id number] Mammography [phone] Noreen CM from [facility] calls to book a HFU for patient who is in rehab and going home tomorrow Has infectious disease followup on 06/20/24 Was seen at hospital for abscess, staph intermedius bacteremia, DVT/PE Has patient made any non reliant specialty/consult follow up appointments? No Referral to Care Management/Disease Management: not needed Chief Complaint: Dorothy Haas 63 y.o. female was assessed following an Emergency Department visit. ED location: [facility] ER Was The Injury Work Related: No She was hospitalized following this ED visit. Clinical Reason for ED Visit: hematuria and dysuria Testing done during ED visit: CT scan, blood work, and urine * Telephone Encounter - Karo Elise - 06/18/2024 10:22 AM EST HFU. documented in this encounter Plan of Treatment Upcoming Encounters Date Type Department Care Team (Late st Contact Info) Description 06/27/2024 11:00 AM EST Office Visit [facility] [address] [place] [address] Deanne Ibarra PA [address] [place] [address] HFU 08/16/2024 10:25 AM EDT CPE - Comprehensive Physical Exam [facility] [address] [place] [facility] [place] [address] Alfreda Costa DO [address] [place] [address] Physical - [facility] 02/27/2025 1:15 PM EST Radiology [facility]. Mammography [address] [place] [address] documented as of this encounter Visit Diagnoses Not on filedocumented in this encounter Care Teams Exterminator Helper Termite Relationship Specialty Start Date End Date Alfreda Costa DO [address] [place] [address] PCP - General Internal Medicine 09/03/19 documented as of this encounter
--- OUTSIDE RECORDS SUMMARY | 2024-06-25 19:19 | XMS_ITS | Encounter Summary ---
Demographics Address [address] [place] [address] Mobile Phone Home Phone Email Address Preferred Language Mongolian Marital Status Scientologist Affiliation Unknown Race White Ethnic Group Unknown Author Organization [facility] Address [address] [place] [address] Support Name Relationship Address Phone [facility] Contact 2 04/[address] [place] [address] Shana Danielle Emergency Contact [address] [place] [address] Care Team Providers Care Career Placement Specialist Name Role Phone Igor Alfreda Primary Care Provider [phone] Encounter Details Date Type Department Care Team (Late st Contact Info) Description 06/01/2024 Hospital/Inpatient [facility] [address] [place] [address] [facility], Unknown Provider Social History Tobacco [...] on file documented as of this encounter Discharge Summaries * [facility], Unknown Provider - 06/08/2024 5:34 PM EST Images from the original note were not included. Discharge Summary by Luann Cuellar MD at 06/08/2024 4:54 PM Author: Luann Cuellar MD Service: Internal Medicine Author Type: Resident Filed: 06/08/2024 4:55 PM Date of Service: 06/08/2024 4:54 PM Status: Attested Procurement Manager: Luann Cuellar MD (Resident) Cosigner: Eliazar Morgan MD at 06/08/2024 5:34 PM Attestation signed by Eliazar Morgan MD at 06/08/2024 5:34 PM I spent 29 minutes performing discharge day services (e.g. examination, discussion of hospital course, follow up care and planning) as appropriate I saw and evaluated the patient on the date of discharge. I reviewed and agree with the resident's documentation. Patient able to obtain bed at [facility] today. Discharged on antibiotics until 07/03. Needs follow up with ID as documented here. Also has incidental cervical spinal stenosis (not causing her symptoms) and pulmonary nodules that will need follow-up with PCP. Dorothy Lunaeran : 1960 CSN: [id number] DISCHARGE SUMMARY [facility] DISCHARGE INFORMATION: Date and Time of Admission: 06/01/2024 8:17 PM Date of Discharge: 06/08/24 DISCHARGE DIAGNOSIS: Problem List Active Problems * (Principal) Gait instability Anemia Anxiety Hematuria Hyperlipidemia Left leg weakness Osteomyelitis of pelvis (CMS/HCC) (HCC) Pelvic abscess in female Pulmonary nodules Streptococcal bacteremia Thrombocytosis ATTENDING PHYSICIAN ON DISCHARGE: Attending Provider: Eliazar Morgan MD [phone] FOLLOW-UPS AND SCHEDULED APPOINTMENTS: Future Appointments Date Time Provider Department Center 06/20/2024 9:30 AM Herman Sutherland MD MEM INFECT D [facility] CONTACT INFORMATION FOR FOLLOW-UP Alfreda Costa Specialty: Internal Medicine Relationship: PCP - General [facility] Internal Medicine [address] [place] [id number] Next Steps: Follow up Instructions: After discharge from [facility]. Herman Sutherland MD Specialty: Infectious Diseases [address] [place] [address] Infectious Diseases [facility] [id number] Next Steps: Follow up on 06/20/2024 Instructions: at 9:30 am - Bigg ESTRADA, [facility], [address] PENDING LABS: . Ordered COMPREHENSIVE MYOSITIS PANEL -RF 06/03/24 1532 DISCHARGE MEDICATIONS: Discharge Medication list: Discharge Medications New Medications Sig Disp Refill 0.9% NaCl 0.9% piggyback 100 mL with cefTRIAXone 2 gram recon soln 2 g Start taking on: June 09, 2024 Infuse 2 g intravenously every 24 hours for 24 days. 0 bisacodyL 10 mg suppository Commonly known as: DULCOLAX Insert 1 suppository (10 mg total) into the rectum daily as needed for constipation. 0 docusate sodium 100 mg capsule Commonly known as: COLACE Start taking on: June 09, 2024 Take 1 capsule (100 mg total) by mouth 2 times a day. 0 metroNIDAZOLE 500 mg tablet Commonly known as: FLAGYL Take 1 tablet (500 mg total) by mouth every 12 hours for 25 days. 0 oxyCODONE IR 5 mg tablet Commonly known as: ROXICODONE Take 1 tablet (5 mg total) by mouth every 3 hours as needed for pain for up to 5 days. Max Daily Amount: 40 mg 0 polyethylene glycol 3350 17 gram packet Commonly known as: MIRALAX Start taking on: June 09, 2024 Take 1 packet (17 g total) by mouth once a day. Mix powder in 4 to 8 oz of water, juice, coffee, ortea prior to administration. 0 senna 8.6 mg tablet Commonly known as: SENOKOT Take 2 tablets (17.2 mg total) by mouth nightly. 0 Medications To Continue Sig Disp Refill apixaban 2.5 mg tablet Commonly known as: ELIQUIS Take 5 mg by mouth every 12 hours. 0 atorvastatin 40 mg tablet Commonly known as: LIPITOR TAKE ONE TABLET (40 MG TOTAL) BY MOUTH 1 (ONE) TIME EACH DAY FOR CHOLESTEROL 0 clonazePAM 0.5 mg tablet Commonly known as: KlonoPIN Take 0.5 mg by mouth 3 times a day. 0 dextroamphetamine-amphetamine 30 mg tablet Commonly known as: ADDERALL Take 1 tablet by mouth 2 times a day. [address] 60 mg capsule Commonly known as: CYMBALTA Take 120 mg by mouth daily. 0 lamoTRIgine 200 mg tablet Commonly known as: LaMICtal Take 200 mg by mouth 2 times a day. 0 traZODone 150 mg tablet Commonly known as: DESYREL Take 150 mg by mouth nightly. 0 ALLERGIES: Ampicillin, Cephalexin, and Penicillin g potassium IMMUNIZATION HISTORY: Most Recent Immunizations Administered Date(s) Administered ? ? Covid-19 Vaccine, J&J, Vector-nr, [id number], PF, 0.5 mL 07/26/2020 ??? Covid-19, Pfizer, mRNA, Monovalent, PF 30 mcg/0.3 mL dose (for ages 12 and older) 04/29/2021 ??? Covid-19, Pfizer, mRNA, Kendrick-sucrose Vaccine, PF, 30 mcg/0.3 mL (for age 12 y and up) 08/08/2023 PRESENTATION INFORMATION: HISTORY OF PRESENT ILLNESS: CHIEF COMPLAINT: Hematuria and difficulty ambulating HISTORY OF PRESENT ILLNESS: History obtained from: Patient and Family Member: 63 years old female, past medical history of MDD, memory loss and pelvic DVT/abscess recently discharged from [facility] after being treated for PE, pelvic DVT and intra-abdominal abscess with IR drainage has returned to the hospital complaining of difficulty getting out of the bed and hematuria. Per records, patient presented to [facility] about 10 days ago with severe pelvic pain, imaging and studies at that time showed 4 cm pelvic abscess and DVT and pulmonary emboli. Blood culture later came back positive for strep intermedius for which she got treated with ceftriaxone and p.o. metronidazole and later underwent IR drainage of the abscess, cultures pending at discharge. Patient was able to start ambulating slightly and therefore got discharged home with recommendations for home PT. After going home she notices she cannot get out of the bed and now has hematuria and therefore came back to the hospital. Seen by urology in the ED and after evaluation they decided against any active intervention and they recommended patient can resume taking Eliquis. On the other hand patient cannot get out of the bed due to severe proximal muscle weakness and therefore needs to be seen by physical therapy probably rehab placement To make an approach more complicated , patient has developed severe memory problem and her MoCA score has dropped to 16/30 on her last visit with neurology, no specific reason could be found. PAST MEDICAL HISTORY: Past Medical History: Diagnosis Date ??? Anxiety ??? Depression ??? High cholesterol ??? Lung nodule s/p resection ??? Syncope PAST SURGICAL HISTORY: Past Surgical History: Procedure Laterality Date ??? LUNG SEGMENTECTOMY 11/15/2022 MGB resection of a spiculated lung lesion; path is neg for malignancy PAST FAMILY HISTORY: Family History Problem Relation Age of Onset ??? Hyperlipidemia Mother ??? Prostate cancer Father ??? Graves' disease Brother ??? Breast cancer Maternal Grandmother ??? Ovarian cancer Maternal Grandmother ??? Lung cancer Maternal Grandfather ??? Graves' disease Paternal Grandmother ??? Breast cancer Paternal Grandmother ??? Bladder Cancer Paternal Grandmother ??? Liver cancer Paternal Grandfather ??? Uterine cancer Father's Sister ??? Ovarian cancer Paternal Great-grandmother PAST SOCIAL HISTORY: Social History[1] HOSPITAL COURSE: Internal Medicine Hospital Course Admission dates: 06/01/2024 to 06/08/2024 Principle diagnosis: Gait instability. Hospital Summary Pt is a 63 y/o F w PMH of MDD, memory loss, pelvic DVT/abscess, and recent PE currently on Eliquis,as well as PFH of multiple cancers (uterine, ovarian, breast, prostate), who was admitted for hematuria. Now resolved and back on Eliquis, course c/b proximal BLE weakness x3wks. UPON DISCHARGE: - START antibiotics until 07/03 - CTX 2g daily - Flagyl 500mg BID *Please see ID DC Recs below - Continue oxycodone 5-7.5mg q3h PRN for moderate-severe pain - Continue bowel reg w nightly senna, daily miralax, and PRN bisacodyl suppository - Continue Eliquis - Consider IVC filter placement if continues having hematuria or bleed - Continue all other home meds, including: - Clonazepam 0.5mg 3 times a day - Lamotrigine 200mg BID - Duloxetine 120mg daily - Adderall 30mg BID PRN - Atorvastatin 40mg daily [ ] F/up labs below: - Myositis panel - Serum paraneoplastic panel - NGS MPN panel [ ] F/up rpt CT chest in 6 wks to be ordered by PCP ID DC Recs: Indication for IV/PO antibiotics: Pelvis Abscess Continue Parenteral Ceftriaxone 2 g every day and Peroral Flagyl 500mg twice daily Plan is to complete 6 weeks of antimicrobial therapy from 05/22 Can consider switching to PO abx in clinic Pending results: None End date of antimicrobial therapy: 07/03 Suppressive antibiotic therapy?: No Line: It can be removed at the completion of therapy unless necessary for another speciality. Please remove PICC line after completion of antibiotic therapy, if not needed by other services. Please call to verify removal beforehand. Is follow-up imaging/EKG indicated?: Yes; Consider Repeat CT_AP towards completion of therapy if symptoms are persistent Outpatient labs to be drawn weekly (Please have results faxed attention outpatient team identified below). CBC w/ diff and CMP Upon discharge, please direct questions/concerns re: patient's care to the outpatient ID team: Outpatient ID attending: Dr Quarles Outpatient ID fellow/DEBBIE: [place] [address] Please follow-up at the ID clinic: Dr. Sutherland 06/20 @ 9:30 AM Bigg WILSON, [facility], [address] [place] [address] * Gait instability Left leg weakness Assessment & Plan Patient is mainly brought to the hospital due to gait instability. Patient was recently discharged home with recommendation for home PT- OT but since being discharged she has not been able to get outof the bed-the main reason that she is brought to the hospital. Seen by home PT who recommended sheis likely candidate for home physical therapy and she needs to be sent to rehab for inpatient physical therapy. There is unexplainable weakness in the lower extremity, mostly in the proximal muscles.Interestingly the left rapid progressive memory problem in the last 1 year. MRI spine demonstratingmultilevel multifactorial degenerative changes most pronounced at C5-C6 and C6-C7 levels where there is up to moderate to severe left neural foraminal narrowing and mild spinal canal stenosis, however there is no significant neural foraminal or spinal canal stenosis at the thoracic levels and thereis no abnormal signal or postcontrast enhancement through the spinal cord. The degenerative changesseen on imaging are not felt to be consistent with the patient's clinical symptoms. Neurology consulted, feeling that lower extremity weakness on exam is more likely secondary to suprapubic pain, andwith encouragement weakness was slightly better prior to previous exams. They do agree with plan for MRI pelvis and MRI brain although have low suspicion for new septic emboli. Patient had TTE with bu bble study not demonstrating any vegetation. MRI brain with with and without contrast was performedwithout any acute intracranial abnormality. Patient's folate and B12 levels within normal limits. Patient's MRI pelvis was significant for several small intramuscular abscesses and concern for osteomyelitis centered around pubic symphysis, likely resulting in patient's gait instability secondary topain. W/up: MRI pelvis: several intramuscular abscesses and concern for osteo around pubic symphysis Myositis panel: pending Serum paraneoplastic panel: pending Autoimmune w/up: AMADOU: negative RF: <10 negative SM (raymond): <1.0 negative Anti-dsDNA: negative HOTEL LOBBY CONCIERGE: negative C3: elevated C4: negative ESR, CRP: elevated Metabolic testing: Aldolase: 4.7 nl VitD: 17 low LDH: 147 [ ] F/up myositis panel, serum paraneoplastic panel Pelvic abscess in female Osteomyelitis of pelvis (CMS/HCC) ([facility]) Streptococcal bacteremia Assessment & Plan Recently been diagnosed with pelvic abscess, 4 cm pelvic abscess status post IR drainage about 2 to3 days ago. During the hospitalization she had a positive culture with strep intermedius. She is onIV ceftriaxone plus p.o. Flagyl to cover PID/pelvic abscess and bacteremia. End date of antibioticswas set on 06/04. However CT demonstrating residual abscess. . Infectious disease consulted. Plan for 2 additional weeks of ceftriaxone and Flagyl . MRI pelvis demonstrating confluent bone marrow edema centered at the pubic symphysis concerning for acute osteomyelitis. Also demonstrating edema involving the pectineus and adductor muscles, in keeping with myositis with small intramuscular abscesses, the largest within the left adductor brevis muscle. Per ortho, no acute intervention. - Continue CTX 2g daily until 07/03 - Continue flagyl 500mg BID until 07/03 - Oxycodone 5-7.5mg q3h PRN for moderate-severe pain - Senna jimmy nightly - Miralax jimmy daily - Bisacodyl suppository PRN ID DC Recs: Indication for IV/PO antibiotics: Pelvis Abscess Continue Parenteral Ceftriaxone 2 g every day and Peroral Flagyl 500mg twice daily Plan is to complete 6 weeks of antimicrobial therapy from 05/22 Can consider switching to PO abx in clinic Pending results: None End date of antimicrobial therapy: 07/03 Suppressive antibiotic therapy?: No Line: It can be removed at the completion of therapy unless necessary for another speciality. Please remove PICC line after completion of antibiotic therapy, if not needed by other services. Please call to verify removal beforehand. Is follow-up imaging/EKG indicated?: Yes; Consider Repeat CT_AP towards completion of therapy if symptoms are persistent Outpatient labs to be drawn weekly (Please have results faxed attention outpatient team identified below). CBC w/ diff and CMP Upon discharge, please direct questions/concerns re: patient's care to the outpatient ID team: Outpatient ID attending: Dr Quarles Outpatient ID fellow/DEBBIE: [place] [address] Please follow-up at the ID clinic: Dr. Sutherland 06/20 @ 9:30 AM [facility], [facility], [address] [place] [address] Thrombocytosis Assessment & Plan Patient was significant acute thrombocytosis on labs, with platelets up to 1166 on Sunday 06/04. Hematology consulted. Given that patient has recent Streptococcus intermedius bacteremia and intra-abdominal abscess and is status post IR drainage, recent acute thrombocytosis is believed to be reactive thrombocytosis secondary to inflammation or infection. Patient's acute inflammatory markers and iron studies consistent with mixed inflammatory and iron deficiency profile. Given CBC trend over the past year and lack of pruritus flushing paresthesias or family history of hematologic disorders, hematology with low suspicion for chronic polycythemia or MPN related primary thrombocytosis. However inorder to rule out, will acquire MPN panel. IgG IgM IgA levels negative. vWF antigen and factor 8 ristocetin cofactor WNL. [ ] F/up NGS MPN panel Hematuria Assessment & Plan Recently diagnosed with PE due to pulmonary vein thrombosis, patient has been on Eliquis. Patient recently discharged home, noticed hematuria and came to the hospital. Seen by urology, hematuria has stopped and they recommended patient can go back on Eliquis. - Continue Eliquis - Consider IVC filter placement if continues having hematuria or bleed Anxiety Assessment & Plan -Continue home clonazepam 0.5 mg 3 times daily -Continue home lamotrigine 200 mg twice daily -Continue home duloxetine 120 mg daily -Continue home Adderall 30 mg twice daily as needed Hyperlipidemia Assessment & Plan -Continue home atorvastatin 40 mg daily Pulmonary nodules Assessment & Plan CT chest performed and significant for biapical pleural parenchymal scarring, postsurgical changes from left upper lobe wedge resection, minimal soft tissue thickening in the left upper lobe adjacentto the suture margin, and clustered nodular opacities in left lower lobe concerning for infectious etiology. Patient is endorsing night sweats. Most recent CBC without elevated white blood cell count, patient remaining afebrile vital checks. HIV Ab negative. [ ] F/up rpt CT chest in 6 wks to be ordered by PCP Anemia Assessment & Plan Patient with slight but stable anemia, Hgb around 10. Iron studies significant for ferritin of 451,iron concentration 26, iron binding capacity 240, transferrin 192, percent saturation of 11%. Iron studies suggestive of mixed chronic inflammatory and iron deficiency anemia. Given IV venofer x4d 06/05-06/08. DISCHARGE DAY INFORMATION: DISCHARGE PHYSICAL EXAM: Vital signs: Blood pressure (!) 90/47, pulse 65, temperature 37 ??C (98.6 ??F), temperature source Oral, resp. rate 18, height 1.638 m (5' 4.49 ), weight 68.2 kg (150 lb 5.7 oz), SpO2 92%. Physical Exam: Gen: Awake and alert, NAD, lying comfortably in bed HEENT: NCAT, MMM, anicteric sclerae w pink and moist conjunctivae CV: RRR, normal S1 and S2, no m/r/g, non-cyanotic Pulm: lungs CTAB, no crackles/wheezes, breathing comfortably, no increased WOB Abd: soft, NTND, no guarding or rebound, pelvic tenderness present Ext: MURPHY, WWP, no edema bilaterally Neuro: A&O to situation, answering questions appropriately, normal affect RLE: 3/5 HF unable to lift fully antigravity but able to keep leg off bed after being passively lifted, 5/5 KF/KE/DF/PF LLE: 3/5 HF unable to lift fully antigravity but able to keep leg off bed after being passively lifted, 5/5 KF/KE/DF/PF Sensation: intact to light touch in BLE Gait: unsteady gait pitched forward, using hands for stability on furniture LAB AND RADIOLOGY: Labs: Recent Results (from the past 48 hours) CBC Auto Differential Collection Time: 06/07/24 5:31 AM Specimen: Venous, Peripheral; Blood Result Value Ref Range WBC 7.1 3.8 - 10.8 10*3/uL RBC 3.14 (L) 3.80 - 5.10 10*6/uL Hemoglobin 8.7 (L) 11.7 - 15.5 g/dL Hematocrit 27.6 (L) 35.0 - 45.0 % MCV 87.9 80.0 - 100.0 fL MCH 27.7 27.0 - 33.0 pg MCHC 31.5 (L) 32.0 - 36.0 g/dL RDW 13.9 11.0 - 15.0 % Platelets 749 (H) 140 - 400 10*3/uL MPV 8.6 7.5 - 12.5 fL Neutrophil % 45.2 % Immature Grans % 0.3 0.0 - 0.9 % Lymphocyte % 38.1 % Monocyte % 12.2 % Eosinophil % 3.1 % Basophil % 1.1 % Neutrophil # 3.22 1.50 - 7.80 10*3/uL Immature Grans # <0.03 <=0.03 10*3/uL Lymphocyte # 2.70 0.85 - 3.90 10*3/uL Monocyte # 0.90 0.20 - 0.95 10*3/uL Eosinophil # 0.20 0.02 - 0.50 10*3/uL Basophil # 0.10 0.00 - 0.20 10*3/uL nRBC % 0.0 /100 WBCs nRBC # <0.01 <0.01 10*3/uL Basic metabolic panel Collection Time: 06/07/24 5:31 AM Specimen: Venous, Peripheral; Blood Result Value Ref Range NA 140 135 - 145 mmol/L K 4.3 3.5 - 5.3 mmol/L Cl 102 98 - 107 mmol/L CO2 30 22 - 32 mmol/L BUN 9 7 - 23 mg/dL Creatinine 0.58 0.50 - 1.20 mg/dL Glucose 100 (H) 65 - 99 mg/dL Calcium 9.0 8.6 - 10.5 mg/dL Anion Gap 8 5 - 15 eGFR >90 >=60 mL/min/1.73m2 Magnesium Collection Time: 06/07/24 5:31 AM Specimen: Venous, Peripheral; Blood Result Value Ref Range MG 2.1 1.6 - 2.4 mg/dL Sedimentation Rate Collection Time: 06/07/24 3:14 PM Specimen: Venous, Peripheral; Blood Result Value Ref Range Sed Rate 60 (H) <30 mm/Hr mm/Hr C-reactive protein Collection Time: 06/07/24 3:14 PM Specimen: Venous, Peripheral; Blood Result Value Ref Range C Reactive Protein 29.3 (H) <=9.9 mg/L CBC Auto Differential Collection Time: 06/08/24 5:49 AM Specimen: Venous, Peripheral; Blood Result Value Ref Range WBC 8.0 3.8 - 10.8 10*3/uL RBC 3.01 (L) 3.80 - 5.10 10*6/uL Hemoglobin 8.4 (L) 11.7 - 15.5 g/dL Hematocrit 26.3 (L) 35.0 - 45.0 % MCV 87.4 80.0 - 100.0 fL MCH 27.9 27.0 - 33.0 pg MCHC 31.9 (L) 32.0 - 36.0 g/dL RDW 13.8 11.0 - 15.0 % Platelets 678 (H) 140 - 400 10*3/uL MPV 8.6 7.5 - 12.5 fL Neutrophil % 49.8 % Immature Grans % 0.4 0.0 - 0.9 % Lymphocyte % 31.3 % Monocyte % 13.7 % Eosinophil % 3.9 % Basophil % 0.9 % Neutrophil # 3.96 1.50 - 7.80 10*3/uL Immature Grans # 0.03 <=0.03 10*3/uL Lymphocyte # 2.50 0.85 - 3.90 10*3/uL Monocyte # 1.10 (H) 0.20 - 0.95 10*3/uL Eosinophil # 0.30 0.02 - 0.50 10*3/uL Basophil # 0.10 0.00 - 0.20 10*3/uL nRBC % 0.0 /100 WBCs nRBC # <0.01 <0.01 10*3/uL Basic metabolic panel Collection Time: 06/08/24 5:49 AM Specimen: Venous, Peripheral; Blood Result Value Ref Range NA 142 135 - 145 mmol/L K 3.7 3.5 - 5.3 mmol/L Cl 103 98 - 107 mmol/L CO2 31 22 - 32 mmol/L BUN 9 7 - 23 mg/dL Creatinine 0.61 0.50 - 1.20 mg/dL Glucose 118 (H) 65 - 99 mg/dL Calcium 8.5 (L) 8.6 - 10.5 mg/dL Anion Gap 8 5 - 15 eGFR >90 >=60 mL/min/1.73m2 Magnesium Collection Time: 06/08/24 5:49 AM Specimen: Venous, Peripheral; Blood Result Value Ref Range MG 1.9 1.6 - 2.4 mg/dL Microbiology Results (last 21 days) Procedure Component Value - Date/Time Blood Culture, Peripheral #1 [[id number]] Collected: 06/02/241641 Lab Status: Final result Specimen: Blood from Venous, Peripheral Updated: 06/07/242051 Culture No growth after 5 days Narrative: [facility] Received Date: MICRO NUMBER: [id number] SPECIMEN QUALITY: Adequate SOURCE: BLOOD VENOUS, PERIPHERAL STATUS: FINAL COMMENT: Aerobic and anaerobic bottle received. Blood Culture, Peripheral #2 [[id number]] Collected: 06/02/241641 Lab Status: Final result Specimen: Blood from Venous, Peripheral Updated: 06/07/242051 Culture No growth after 5 days Narrative: [facility] Received Date: MICRO NUMBER: [id number] SPECIMEN QUALITY: Adequate SOURCE: BLOOD VENOUS, PERIPHERAL STATUS: FINAL COMMENT: Aerobic and anaerobic bottle received. Imaging: X-Ray Pelvis 3+ Views Result Date: 06/07/2024 FINDINGS/IMPRESSION: There is patchy sclerosis involving the [...] an incomplete radiology report. Please contact the in terpreting radiologist or applicable radiology division as soon as possible to obtain the completedinterpretation. Workstation ID: [id number] MRI Brain with and without Contrast Result Date: 06/06/2024 1. No acute intracranial abnormality. 2. Very few small T2 hyperintense foci in cerebral white matter, nonspecific, of doubtful clinical significance for patient's age. 3. Subcutaneous T2 hyperintensity in face and frontal scalp, question prior cosmetic procedure. Correlate with history. If this radiology report contains a blank impression section, it is an incomplete radiology report. Please contact the interpreting radiologist or applicable radiology division as soon as possible to obtain thecompleted interpretation. Workstation ID: [id number] MRI ([facility]) Pelvis W WO Contrast Result Date: 06/06/2024 IMPRESSION: 1. Confluent bone marrow edema centered at the pubic symphysis is concerning for acute osteomyelitis. Small amount of fluid at the pubic symphysis is likely septic. 2. Edema involving thepectineus and adductor muscles, in keeping with myositis with small intramuscular abscesses, the largest within the left adductor brevis muscle. A(n) Wells actionable finding has been communicated to the ordering or responsible provider via the [employer] system on 06/06/2024 9:29 AM. Receipt of this communication by the responsible provider will be documented in [employer] upon receiving acknowledgement if applicable, Message ID [id number]. IEliazar,have reviewed the examination and concur with the findings as reported or so edited. Trainee: Rosa Maria Morales If this radiology report contains a blank impression section, it is an incomplete radiology report. Please contact the interpreting radiologist or applicable radiology division as soon as possible to obtain the completed interpretation. Workstation ID: [id number] CT Chest W Contrast Result Date: 06/05/2024 [...] the ordering or responsible provider via the Gen9 system on06/05/2024 1:18 PM. Receipt of this communication by the responsible provider will be documented in Gen9 upon receiving acknowledgement if applicable, Message ID [id number]. If this radiology report contains a blank impression section, it is an incomplete radiology report. Please contact the interpreting radiologist or applicable radiology division as soon as possible to obtain the completed interpretation. Workstation ID: [id number] Up-to-date CT equipment and radiation dose reduction techniques were employed. CTDIvol: 5.2 mGy. DLP: 154 mGy-cm. MRI Cervical Spine W WO Contrast MRI Cervical Spine W WO Contrast, MRI [...] French, have reviewed the examination and concur withthe findings as reported or so edited. Trainee: Salome Pineda If this radiology report containsa blank impression section, it is an incomplete radiology report. Please contact the interpreting radiologist or applicable radiology division as soon as possible to obtain the completed interpretation. Workstation ID: [id number] MRI Lumbar Spine W WO Contrast Result [...] to obtain the completed interpretation. Workstation ID: [id number] Prior Echo Procedures Transthoracic Echo (TTE) Bubble Study Exam End: 06/05/2024 9:39 AM (Final result) Narrative: ??? Normal biventricular size and global systolic function. Estimated LVEF is 70%. No regional wall motion abnormalities. ??? Normal atrial size. ??? No significant valvular disease identified. ??? No interatrial shunt detected by color flow Doppler. No interatrial septal aneurysm. Unable to perform bubble study. GLOBAL PLAN OF CARE CONSULTS: IP CONSULT TO NEUROLOGY IP CONSULT TO HEMATOLOGY IP CONSULT TO IV THERAPY NURSE IP CONSULT TO INFECTIOUS DISEASES IP CONSULT TO NUTRITION SERVICES IP CONSULT TO ORTHOPEDIC SURGERY INPATIENT CONSULT FOR PICC PLACEMENT BY NURSING PROCEDURES: . Active Lines Name Placement date Placement time Site Days PICC 06/07/24 Pressure injectable Right Brachial Single Lumen 06/07/24 1535 Right Brachial 1 QUALITY Central Venous Catheter: keep central line in for IV abx CONDITION: Fair ADVANCED CARE PLANNING Code Status: Full Code Medical Decision Maker: Signature: Luann Cuellar MD PGY-1 Electronic Signature [1] Social History Socioeconomic History ??? Marital status: Spouse name: Not on file ??? Number of children: Not on file ??? Years of education: Not on file ??? Highest education level: Not on file Occupational History ??? Not on file Tobacco Use ??? Smoking status: Never ??? Smokeless tobacco: Never Substance and Sexual Activity ??? Alcohol use: Never ??? Drug use: Never ??? Sexual activity: Not on file Other Topics Concern ??? Not on file Social History Narrative ??? Not on file documented in this encounter H&P Notes * [facility], Unknown Provider - 06/07/2024 5:48 PM EST Consult to H&P by Agueda Dominguez MD at 06/07/2024 12:38 PM Author: Agueda Dominguez MD Service: Orthopedics Author Type: Resident Filed: 06/07/2024 2:33 PM Date of Service: 06/07/2024 12:38 PM Status: Attested Procurement Manager: Agueda Dominguez MD (Resident) Cosigner: Immanuel Ulloa MD at 06/07/2024 5:48 PM Attestation signed by Immanuel Ulloa MD at 06/07/2024 5:48 PM I reviewed the case with the resident but did not see the patient. I agree with the assessment and plan as documented in the resident's note. Orthopaedic Surgery Consult Note Reason for Consultation: Pubic symphysis osteomyelitis Date of Injury: Approximately 2 weeks Mechanism of Injury: Atraumatic History of Present Ilness: Dorothy Vázquez is a prior community ambulator 63 y.o. female with no significant past medical history who presents with hematuria and lower extremity weakness. An MRI of the pelvis was obtained and had concern for pubic symphysis osteomyelitis and so orthopedics was consulted. This patient has ahistory of a left obturator intramuscular abscess which was drained at [facility] on 05/29. It grew Staph intermedius. She was discharged on antibiotics, ceftriaxone and metronidazole.. She was alsofound to have a PE at that time. She was started on Eliquis for that. She represented with hematuria and lower extremity weakness. Her hematuria has since resolved. Due to lower extremity weakness multiple MRIs were obtained. Orthopedics is consulted for radiology readof possible osteomyelitis. On examination she is complaining of pain in her anterior pelvic area. She denies any numbness or tingling. She has been ambulating with a walker which is somewhat difficult secondary to the pain Past Medical History: Past Medical History: Diagnosis Date ??? Anxiety ??? Depression ??? High cholesterol ??? Lung nodule s/p resection ??? Syncope Past Surgical History: Past Surgical History: Procedure Laterality Date ??? LUNG SEGMENTECTOMY 11/15/2022 MGB resection of a spiculated lung lesion; path is neg for malignancy Medications: Current Outpatient Medications Medication Instructions ??? apixaban (ELIQUIS) 5 mg, Every 12 hours scheduled ??? atorvastatin (LIPITOR) 40 mg tablet TAKE ONE TABLET (40 MG TOTAL) BY MOUTH 1 (ONE) TIME EACH DAY FOR CHOLESTEROL ??? clonazePAM (KLONOPIN) 0.5 mg, oral, 3 times daily ??? dextroamphetamine-amphetamine (ADDERALL) 30 mg tablet 1 tablet, oral, 2 times daily ??? DULoxetine DR (CYMBALTA) 120 mg, oral, Daily ??? lamoTRIgine (LAMICTAL) 200 mg, oral, 2 times daily ??? traZODone (DESYREL) 150 mg, Nightly Allergies: Allergies Allergen Reactions ??? Ampicillin Rash ??? Cephalexin Rash ??? Penicillin G Potassium Rash Social History: Other Drugs: Denies drug use Pre-injury ambulatory status: Community Contact: Extended Emergency Contact Information Primary Emergency Contact: Patrick Vázquez Mobile Relation: Spouse Secondary Emergency Contact: Esme Vázquez Mobile Relation: Daughter Family History: Denies family history of bleeding or clotting disorders Review of Systems: Negative unless noted in HPI Physical Exam: Vitals: 06/07/24 0546 BP: 104/65 Gen Appearance: Well appearing, NAD Lungs: Non labored breathing Abdomen: Nondistended Alert and conversing appropriately Oriented to person, place, time, situation Left Lower Extremity Skin not examined, patient in pink pajamas Motor: Fires EHL, FHL, GSC, TA Sensation: SP, DP, T distributions intact Brisk Capillary Refill Palp DP Pulse Right Lower Extremity Skin intact without erythema or ecchymosis Motor: Fires EHL, FHL, GSC, TA Sensation: SP, DP, T distributions intact Brisk Capillary Refill Palp DP Pulse Imaging: Xrays reveal no acute osseous abnormalities. MRI of the pelvis demonstrates bone marrow edema of the pubic symphysis. Labs: Pertinent labs were reviewed by me. They include: Hematocrit: 27.6 WBC: 7.1 Na: 140 K: 4.3 INR: Cr: 0.58 Glucose: 100 CRP: 59.2 ESR: 84 Lactate: 1.1 EtOH: Assessment + Plan: Dorothy Vázquez is a 63 y.o. female with past medical history of anxiety, depression, hyperlipidemia, who presents with hematuria and lower extremity weakness. She has history of a left obturator intramuscular abscess that was drained at [facility] on 06/19. She was just charged on ceftriaxoneand metronidazole. It grew Staph intermedius. She also had a PE at that time. She presents with hematuria and lower extremity weakness. For this she got multiple MRIs. MRI of the pelvis demonstrated concern for osteomyelitis for which orthopedics is consulted. On physical exam she is having pain in the anterior pelvic region. She has no numbness or tingling.She is hemodynamically stable and afebrile. Inflammatory markers are pending. She has been having difficulty ambulating due to the pain and has been using a walker. ESR and CRP are pending. Due to medical concern for possible osteomyelitis that has been refractory to antibiotics we are recommending an IR consult for possible IR biopsy. No orthopedic intervention. Antibiotic treatment per primary team. As for the abscesses if there is concern for need for further treatment of the abscesses would recommend consult to general surgery. Weightbearing restrictions: WBAT BLE Immobilization: none DVT PPx: per primary Antibiotics: Per primary team Disposition: pending IR biopsy Agueda Dominguez MD PGY-2 Orthopedic Surgery * [facility], Unknown Provider - 06/02/2024 7:36 AM EST Consult to H&P by Lea Horne MD at 06/01/2024 4:28 PM Author: Lea Horne MD Service: Urology Author Type: Resident Filed: 06/01/2024 6:11 PM Date of Service: 06/01/2024 4:28 PM Status: Attested Procurement Manager: Lea Horne MD (Resident) Related Notes: Original Note by Lea Horne MD (Resident) filed at 06/01/2024 6:11 PM Cosigner: Kirsty Salgado MD at 06/02/2024 7:36 AM Attestation signed by Kirsty Salgado MD at 06/02/2024 7:36 AM I reviewed the case with the resident but did not see the patient. I agree with the assessment and plan as documented in the resident's note. History and Physical/ED Consult CONSULTS REQUESTED BY: Yovany Khan MD REASON FOR CONSULT: Gross hematuria HPI CHIEF COMPLAINT: Gross hematuria HISTORY OF PRESENT ILLNESS: History obtained from: Patient, Partner, and Medical Record Dorothy Vázquez is a 63 year old female with history of MDD, anxiety, high cholesterol, and syncopepresenting with gross hematuria, dysuria, suprapubic discomfort, and bilateral leg pain/weakness. Patient was recently hospitalized at [facility] for Streptococcus intermedius bacteremia secondary to L obturator muscle abscess s/p IR guided drainage on 05/29, and discharged on 05/30. Duringthat hospital stay the patient was found to have a PE/DVT, and was started on Eliquis. She was alsodischarged on ceftriaxone and flagyl. Urology consulted for gross hematuria. Patient states the gross hematuria began this morning, and was dark red without clots. She states since then the urine has become pink. She notes suprapubic discomfort that's exacerbated with movement of her legs. She states that she was having difficulty urinating earlier while in the ER, but was eventually able to void a large amount. Labs notable for leukocytosis of 14.1 (compared to 13 on day of discharge), creatinine 0.72. UA with 3+ blood, negative nitrite, negative leukocyte, 0 WBC, >[address] AP notable for a 2 mm non-obstructing stone in the lower pole of the left kidney, but no hydronephrosis or ureteral stones. Bladder was unremarkable. Small residual left adductor dian/obturator externus muscle as well as leftlower lobe PE and right external iliac vein DVT. Subjective REVIEW OF SYSTEMS: All other systems are negative Past Medical History: Anxiety Depression High cholesterol Syncope Past Surgical History: No Surgical History Home Medications: ??? atorvastatin (LIPITOR) 40 mg tablet, TAKE ONE TABLET (40 MG TOTAL) BY MOUTH 1 (ONE) TIME EACH DAY FOR CHOLESTEROL ??? clonazePAM (KlonoPIN) 0.5 mg tablet, Take 0.5 mg by mouth 3 times a day. ??? dextroamphetamine-amphetamine (ADDERALL) 30 mg tablet, Take 1 tablet by mouth 2 times a day. ??? DULoxetine DR (CYMBALTA) 60 mg capsule, Take 120 mg by mouth daily. ??? lamoTRIgine (LaMICtal) 200 mg tablet, Take 200 mg by mouth 2 times a day. ??? mirtazapine (REMERON) 15 mg tablet, Take 15 mg by mouth nightly. ??? propranoloL (INDERAL) 10 mg tablet, Allergies: Ampicillin Cephalexin Penicillin G Potassium Social History: Tobacco Use ??? Smoking status: Never ??? Smokeless tobacco: Never Substance Use Topics ??? Alcohol use: Never ??? Drug use: Never Family History: History reviewed. No pertinent family history. Objective Temp: [36.9 ??C (98.4 ??F)] 36.9 ??C (98.4 ??F) Heart Rate: [84-87] 84 Resp: [11-16] 16 BP: (94-106)/(48-70) 101/63 SpO2: [97 %-99 %] 99 % . Active Lines Name Placement date Placement time Site Days PICC 06/01/24 Left Cephalic Double Lumen 06/01/24 -- Left Cephalic less than 1 , Active Drains None Physical Exam Gen: Alert and oriented x 4 GI: Abdomen soft, nondistended. Mild suprapubic discomfort : No awan catheter in place Back: Negative CVA tenderness Skin: Warm, dry, intact Psych: Answers all questions appropriately Result Review I have reviewed the patient's labs results from the last 24 hours. Results from last 24 hours Lab Units 06/01/24 1301 WBC 10*3/uL 14.1* HEMOGLOBIN g/dL 10.2* HEMATOCRIT % 31.6* PLATELETS 10*3/uL 787* Results from last 24 hours Lab Units 06/01/24 1301 SODIUM mmol/L 137 BUN mg/dL 13 CREATININE mg/dL 0.72 GLUCOSE mg/dL 111* Results from last 24 hours Lab Units 06/01/24 1109 COLOR, UA Red* CLARITY, UA Cloudy* SPEC GRAV, UA 1.015 PH, UA 6.0 PROTEIN, UA 2+* GLUCOSE, UA Negative KETONES, UA Negative BILIRUBIN, UA Negative BLOOD, UA 3+* NITRITE, UA Negative UROBILINOGEN, UA Normal LEUKOCYTE ESTERASE, UA Negative WBC, UA /HPF 0 RBC, UA /HPF >180* HYALINE CASTS, UA /LPF 0 BACTERIA, UA /HPF None Imaging Results Radiology Review: I have personally reviewed the patient's imaging results. CT Abd Pelvis W Contrast Result Date: 06/01/2024 1. Segmental pulmonary embolism in the left [...] the ordering or responsible provider via the Gen9 system on 06/01/2024 5:05 PM. Receipt of this communication by the responsible provider will be documented in Gen9 upon receiving acknowledgement if applicable, Message ID [id number]. If this radiology report contains a blank impression section, it is an incomplete radiology report. Please contact the interpreting radiologist or applicable radiology division as soon as possible to obtain the completed interpretation. Workstation ID: [id number] Assessment & Plan Active Problems: No Active Problems: There are no active problems currently on the Problem List. Please update the Problem List and refresh. A: 63 year old female with pmh MDD, anxiety, high cholesterol, and syncope, presenting with gross hematuria x 1 day, dysuria, and suprapubic discomfort. Patient recently hospitalized at [facility] where she had IR drainage of a left obturator abscess, and was found to have a PE and DVT, and was started on Eliquis. Labs notable for leukocytosis to 14. Patient's CT shows a decompressed bladder without clot and she states her urine has lightened in color compared to this morning. Hematuria may likely be due to being on an anticoagulant and bladder deconditioning/dehydration after long hospital stay. P: After discussion with attending Dr. Salgado, the recommendations are as follows: - No acute urologic interventions - No indication for awan catheter - Increase hydration - Okay to continue anticoagulation from urologic perspective - Continue patient's home antibiotics. It would be beneficial to ensure IR culture specificities cover with current antibiotics Urology will sign off at this time. Please reconsult the team at #[id number] if you have any questions, concerns or if there is anyway we can support you in caring for this patient. GLOBAL PLAN OF CARE: FLUIDS AND NUTRITION FLUIDS: NUTRITION: No diet orders on file ADVANCED CARE PLANNING Code Status: No Order Medical Decision Maker: I have discussed the plan of care with: Patient, Family, Attending, Resident, and Inter-professional team. I have reviewed, updated, and verified this note's content. I spent a total of 40 minutes on the date of encounter, which included: ?? Preparing to see the patient (e.g., review of test results) ?? Obtaining and/or reviewing separately obtained history ?? Performing a medically appropriate exam and/or evaluation ?? Counseling and educating the patient/family/caregiver ?? Referring and communicating with other healthcare professionals, when not separately reported Signature: TERRY Warner MD PGY2 Electronic Signature * [facility], Unknown Provider - 06/01/2024 9:55 PM EST H&P by Juma Hernandez MD at 06/01/2024 9:36 PM Author: Juma Hernandez MD Service: Internal Medicine Author Type: Physician Filed: 06/01/2024 9:54 PM Date of Service: 06/01/2024 9:36 PM Status: Signed Procurement Manager: Juma Hernandez MD (Physician) History and Physical HPI CHIEF COMPLAINT: Hematuria and difficulty ambulating HISTORY OF PRESENT ILLNESS: History obtained from: Patient and Family Member: 63 years old female, past medical history of MDD, memory loss and pelvic DVT/abscess recently discharged from [facility] after being treated for PE, pelvic DVT and intra-abdominal abscess with IR drainage has returned to the hospital complaining of difficulty getting out of the bed and hematuria. Per records, patient presented to [facility] about 10 days ago with severe pelvic pain, imaging and studies at that time showed 4 cm pelvic abscess and DVT and pulmonary emboli. Blood culture later came back positive for strep intermedius for which she got treated with ceftriaxone and p.o. metronidazole and later underwent IR drainage of the abscess, cultures pending at discharge. Patient was able to start ambulating slightly and therefore got discharged home with recommendations for home PT. After going home she notices she cannot get out of the bed and now has hematuria and therefore came back to the hospital. Seen by urology in the ED and after evaluation they decided against any active intervention and they recommended patient can resume taking Eliquis. On the other hand patient cannot get out of the bed due to severe proximal muscle weakness and therefore needs to be seen by physical therapy probably rehab placement To make an approach more complicated , patient has developed severe memory problem and her MoCA score has dropped to 16/30 on her last visit with neurology, no specific reason could be found. Subjective REVIEW OF SYSTEMS: Review of Systems - History obtained from the patient General ROS: positive for - fatigue Respiratory ROS: no cough, shortness of breath, or wheezing Cardiovascular ROS: no chest pain or dyspnea on exertion Gastrointestinal ROS: no abdominal pain, change in bowel habits, or black or bloody stools Genito-Urinary ROS: positive for - hematuria and pelvic pain Musculoskeletal ROS: positive for - gait disturbance and muscular weakness Neurological ROS: positive for - memory loss Dermatological ROS: negative Past Medical History: Anxiety Depression High cholesterol Syncope Past Surgical History: No Surgical History Home Medications: ??? atorvastatin (LIPITOR) 40 mg tablet, TAKE ONE TABLET (40 MG TOTAL) BY MOUTH 1 (ONE) TIME EACH DAY FOR CHOLESTEROL ??? clonazePAM (KlonoPIN) 0.5 mg tablet, Take 0.5 mg by mouth 3 times a day. ??? dextroamphetamine-amphetamine (ADDERALL) 30 mg tablet, Take 1 tablet by mouth 2 times a day. ??? DULoxetine DR (CYMBALTA) 60 mg capsule, Take 120 mg by mouth daily. ??? lamoTRIgine (LaMICtal) 200 mg tablet, Take 200 mg by mouth 2 times a day. ??? mirtazapine (REMERON) 15 mg tablet, Take 15 mg by mouth nightly. ??? propranoloL (INDERAL) 10 mg tablet, Allergies: Ampicillin Cephalexin Penicillin G Potassium Social History: Tobacco Use ??? Smoking status: Never ??? Smokeless tobacco: Never Substance Use Topics ??? Alcohol use: Never ??? Drug use: Never Family History: History reviewed. No pertinent family history. Objective Temp: [36.9 ??C (98.4 ??F)] 36.9 ??C (98.4 ??F) Heart Rate: [77-87] 77 Resp: [11-18] 18 BP: (94-149)/(48-84) 149/84 SpO2: [97 %-99 %] 97 % Left arm PICC line Physical Exam General appearance: Alert, In no acute distress HEENT: Normocephalic, atraumatic Pupils are equal, round and react to light Nonicteric Lungs: clear to ausculation bilaterally, no wheeze, rales or rhonchi Heart: Rate and Rhythm: regular Abdomen: Soft, non-tender throughout and non-distended Extremities: Normal range of motion, Skin warm and dry, and No muscular atrophy Skin: No rash or ulcers Neurologic: Alert and oriented x 3, CN II - XII intact, No facial droop, and Hearing normal Result Review Results from last 24 hours Lab Units 06/01/24 1301 SODIUM mmol/L 137 BUN mg/dL 13 CREATININE mg/dL 0.72 GLUCOSE mg/dL 111* Results from last 24 hours Lab Units 06/01/24 1301 WBC 10*3/uL 14.1* HEMOGLOBIN g/dL 10.2* HEMATOCRIT % 31.6* PLATELETS 10*3/uL 787* Results from last 24 hours Lab Units 06/01/24 1109 COLOR, UA Red* CLARITY, UA Cloudy* SPEC GRAV, UA 1.015 PH, UA 6.0 PROTEIN, UA 2+* GLUCOSE, UA Negative KETONES, UA Negative BILIRUBIN, UA Negative BLOOD, UA 3+* NITRITE, UA Negative UROBILINOGEN, UA Normal LEUKOCYTE ESTERASE, UA Negative WBC, UA /HPF 0 RBC, UA /HPF >180* HYALINE CASTS, UA /LPF 0 BACTERIA, UA /HPF None Imaging Results Radiology Review: I have personally reviewed the patient's imaging results. Assessment & Plan Principal Problem: Hematuria Active Problems: Pelvic abscess in female Gait instability * Hematuria Assessment & Plan Recently diagnosed with PE due to pulmonary vein thrombosis, patient has been on Eliquis. Patient recently discharged home, noticed hematuria and came to the hospital. Seen by urology, hematuria has stopped and they recommended patient can go back on Eliquis. Plan: 1-high risk for DVT/PE, will resume Eliquis. If she continues having hematuria, she may need IVC filter placement Gait instability Assessment & Plan Patient is mainly brought to the hospital due to gait instability. Patient has been discharged homewith recommendation for home PT- OT but since being discharged she has not been able to get out of the bed-the main reason that she is brought to the hospital. Seen by home PT who recommended she is likely candidate for home physical therapy and she needs to be sent to rehab for inpatient physical therapy. There is unexplainable weakness in the lower extremity, mostly in the proximal muscles. Interestingly the left rapid progressive memory problem in the last 1 year. Combination of these findings with pelvic DVT may point toward autoimmune encephalitis Plan: 1-PT/OT 2-neurology consult in the morning Pelvic abscess in female Assessment & Plan Recently been diagnosed with pelvic abscess, 4 cm pelvic abscess status post IR drainage about 2 to3 days ago. During the hospitalization she had a positive culture with strep intermedius. She is onIV ceftriaxone plus p.o. Flagyl to cover PID/pelvic abscess and bacteremia. End date of antibioticswas set on 06/04. Culture from pelvic abscess drainage is pending Plan: 1-resume ceftriaxone and Flagyl 2-follow-up with cultures from [facility] from IR abscess drainage GLOBAL PLAN OF CARE: FLUIDS AND NUTRITION FLUIDS: NUTRITION: Diet, Adult Full participation; Regular VTE PROPHYLAXIS Pharmacologic Prophylaxis: eliquis Mechanical Prophylaxis: not needed ADVANCED CARE PLANNING Code Status: Full Code Medical Decision Maker: I have discussed the plan of care with: Patient and Family. Med Reconciliation Status: Medication Reconciliation Status: COMPLETE: Medication reconciliation iscomplete in full using one or more reliable source(s). I have reviewed, updated, and verified this note's content. Signature: Juma Hernandez MD Electronic Signature documented in this encounter Plan of Treatment Upcoming Encounters Date Type Department Care Team (Late st Contact Info) Description 06/27/2024 11:00 AM EST Office Visit [facility] [address] [place] [id number] Deanne Ibarra PA [address] [place] [address] HFU 08/16/2024 10:25 AM EDT CPE - Comprehensive Physical Exam [facility] [address] [place] [id number] Alfreda Costa DO [address] [place] [address] Physical - LETTER SENT TO [facility] 02/27/2025 1:15 PM EST Radiology [facility]. Mammography [address] [place] [id number] documented as of this encounter Procedures * Due to [place] [email or web address] law, this organization might not be sharing negative HIV tests. Procedure Name Priority Date/Time Associated Diagnosis Comments XR PELVIS 3 OR MORE VWS 06/07/2024 5:18 PM EST MRI BRAIN W WO CONTRAST 06/06/2024 9:51 AM EST MRI ([facility]) PELVIS W AND WO CONTRAST 06/06/2024 9:[address] CHEST WITH CONTRAST 1:18 PM EST TRANSTHORACIC ECHO (TTE) BUBBLE STUDY 06/05/2024 10:55 AM EST MRI THORACIC SPINE W WO CONTRAST 06/03/2024 2:11 PM EST MRI CERVICAL SPINE W WO CONTRAST 06/03/2024 2:11 PM EST MRI LUMBAR SPINE W WO CONTRAST 06/03/2024 12:03 PM EST documented in this encounter Results * Due to [place] [email or web address] law, this organization might not be sharing negative HIV tests. * XR PELVIS 3 OR MORE VWS [...] obtain the completed interpretation. ? Workstation ID: [id number] 5' 4.488 150.35 Procedure Note [facility], Unknown Provider - 06/07/2024 COMPARISON: [...] possible to obtain thecompleted interpretation. Workstation ID: [id number] 5' 4.488 150.35 us Unknown Provider [facility] IMAGING-[place] Final Resu lt * MRI BRAIN W WO CONTRAST (06/06/2024 [...] obtain the completed interpretation. ? Workstation ID: [id number] 5' 4.488 151 Procedure Note [facility], Unknown Provider - 06/06/2024 EXAMINATION: [...] possible to obtain thecompleted interpretation. Workstation ID: [id number] 5' 4.040 151 us Unknown Provider [facility] Final Resu lt * (ABNORMAL) MRI (MSK) PELVIS W AND WO CONTRAST (06/06/2024 9:29 AM EST) Incidental Findings Yes(A) [facility] Anatomical Region Laterality Modality Other 06/06/2024 [...] within the left adductor brevis muscle. A(n) Wells actionable finding has been communicated to the ordering or responsible provider via the Gen9 system on 06/06/2024 9:29 AM. ??Receipt of this communication by the responsible provider will be documented in Gen9 upon receiving acknowledgement if applicable, Message ID [id number]. I, Eliazar Nieves, have reviewed the examination and concur with the findings as reported or so edited. Trainee: ??Rosa Maria Morales If this radiology report contains a blank impression section, it is an incomplete radiology report. ??Please contact the interpreting radiologist or applicable radiology division as soon as possible to obtain the completed interpretation. ? Workstation ID: [id number] 5' 4.488 151 Procedure Note [facility], Unknown Provider - 06/06/2024 INDICATION: [...] largest within the leftadductor brevis muscle. A(n) Wells actionable finding has been communicated to the ordering orresponsible provider via the Gen9 system on06/06/2024 9:29 AM. Receipt of this communication by the responsibleprovider will be documented in [employer] Findings upon receiving acknowledgement ifapplicable, Message ID [id number]. I, Eliazar Nieves, have reviewed the examination and concur with the findings asreported or so edited. Trainee: Rosa Maria Morales If this radiology report contains a blank impression section, it is anincomplete radiology report. Please contact the interpreting radiologistor applicable radiology division as soon as possible to obtain thecompleted interpretation. Workstation ID: [id number] 5' 4.488 151 us Unknown Provider [facility] IMAGING-[facility] Final Resu lt * (ABNORMAL) CT CHEST WITH CONTRAST (06/05/2024 1:18 PM EST) Incidental Findings Yes(A) [facility] Anatomical Region Laterality Modality Other 06/05/2024 [...] the ordering or responsible provider via the Gen9 system on 06/05/2024 1:18 PM. ??Receipt of this communication by the responsible provider will be documented in [employer] Actionable Findings upon receiving acknowledgement if applicable, Message ID [id number]. If this radiology report contains a blank impression section, it is an incomplete radiology report. ??Please contact the interpreting radiologist or applicable radiology division as soon as possible to obtain the completed interpretation. ? Workstation ID: [id number] Up-to-date CT equipment and radiation dose reduction techniques were employed. CTDIvol: 5.2 mGy. DLP: 154 mGy-cm. 5' 4.488 151 Procedure Note [facility], Unknown Provider - 06/05/2024 Indication: [...] to the ordering orresponsible provider via the Gen9 system on06/05/2024 1:18 PM. Receipt of this communication by the responsibleprovider will be documented in Gen9 upon receiving acknowledgement ifaruma, Message ID [id number]. If this radiology report contains a blank impression section, it is anincomplete radiology report. Please contact the interpreting radiologistor applicable radiology division as soon as possible to obtain thecompleted interpretation. Workstation ID: [id number] Up-to-date CT equipment and radiation dose reduction techniques wereemployed. CTDIvol: 5.2 mGy. DLP: 154 mGy-cm. 5' 4.488 151 us Unknown Provider [facility] Final Resu lt * TRANSTHORACIC ECHO (TTE) BUBBLE STUDY (06/05/2024 10:55 AM EST) 06/05/2024 10:5 5 AM EST Narrative [facility] - 06/05/2024 10:55 AM EST - ??Normal [...] the original result were not included. ?? [facility] Cardiac Ultrasound [address] [place] [id number] Phone: ? Dorothy Vázquez ?? Procedures: ??Transthoracic Echo (TTE) Complete w/ Bubble Patient Patient : ??1960 (63 y.o.) Legal Sex: ??Female Height: ??1.638 m (5' 4.49 ) Weight: ??68.5 kg (151 lb) BSA: ??1.77 m? Blood Pressure: ??107/61 Accession Number: ??[id number] Date of Study: ??06/05/2024 Ordering Provider: ??Bin Fairchild MD Clinical Indications: ??Other, Recent bacteremia, unexplained neurological weakness ??[facility] ??Performing Staff Cardiology: ??Julián Rivera MD Tech: ??Inga Serra [facility] Patient Class: Inpatient Prior Study ?? No [...] LV ES Dimension 3.00 ? Data set: [place] Z-score normal range: +/-2 BSA formula: [place] 2D Measurements ?? Dimensions LVIDD 4 cm [...] Mitral Valve ?? PISA-MS MV Peak E Jamie 0.56 m/s ? Doppler Measurements - Diastolic Filling ?? Diastolic Filling E/A ratio 0.9 ?? Septal e' 0.09 m/s Lateral e' 0.12 m/s E wave deceleration time 187 msec MV Peak A Jamie 0.64 m/s Signed ?? at 1055 EST Linked Charges ?? Charge Code Link Type Charge Type Modifiers Echo Heart Xthoracic,Complete W Doppler 68892 Automatic Professional 26 HC Echo 2d W/Doppler/Color Flow [[id number]] 09183 Automatic Technical ?? Echo Heart Xthoracic,Complete W Doppler 75904 Automatic Global ?? [place] Myocardial Strain Img Using Speckle Trck-Drvd Ass Myocrd Mechanics 79443 Context Professional ?? 3d Rendering W/Interp ??T ??Postprocess Supervision 98458 Context Professional 26 Procedure Note [facility], Unknown Provider - 06/05/2024 - [...] from the original result were not included. [facility] Cardiac Ultrasound [address] [place] [address] Phone: Dorothy Vázquez Procedures: Transthoracic Echo (TTE) Complete w/ Bubble Patient Patient : 1960 (63 y.o.) Legal Sex: Female Height: 1.638 m (5' 4.49 ) Weight: 68.5 kg (151 lb) BSA: 1.77 m? Blood Pressure: 107/61 Accession Number: [id number] Date of Study: 06/05/2024 Ordering Provider: Bin Fairchild MD Clinical Indications: Other, Recent bacteremia, unexplained neurologicalweakness [facility] Performing Staff Cardiology: Julián Rivera MD Tech: Inga Serra [facility] Patient Class: Inpatient Prior Study No prior [...] 1.00 LV ES Dimension 3.00 Data set: [place] Z-score normal range: +/-2 BSA formula: [place] [...] - Mitral Valve PISA-MS MV Peak E Jamie 0.56 m/s Doppler Measurements - Diastolic Filling Diastolic Filling E/A ratio 0.9 Septal e' 0.09 m/s Lateral e' 0.12 m/s E wave deceleration time 187 msec MV Peak A Jamie 0.64 m/s Signed at 1055 EST Linked Charges Charge Code Link Type Charge Type Modifiers Echo Heart Xthoracic,Complete W Doppler 24213 Automatic Professional 26 HC Echo 2d W/Doppler/Color Flow [[id number]] 12083 Automatic Technical Echo Heart Xthoracic,Complete W Doppler 10733 Automatic Global [place] Myocardial Strain Img Using Speckle Trck-Drvd Ass Myocrd [id number] Context Professional 3d Rendering W/Interp T Postprocess Supervision 99778 ContextProfessional 26 us Unknown Provider [facility] CARDIOVASCULAR-NO INBASKET RTG Final Result [facility] [employer] [address] [place] [address] * MRI CERVICAL SPINE W WO CONTRAST [...] obtain the completed interpretation. ? Workstation ID: [id number] 5' 4.5 151.02 Procedure Note [facility], Unknown Provider - 06/03/2024 EXAMINATION: [...] cervical spine is otherwise preserved. Diffuse low D9iqauov intensity is present of osseous structures. This [...] possible to obtain thecompleted interpretation. Workstation ID: [id number] 5' 4.5 151.02 us Unknown Provider [facility] Final Resu lt * MRI THORACIC SPINE W WO CONTRAST [...] obtain the completed interpretation. ? Workstation ID: [id number] 5' 4.5 151.02 Procedure Note [facility], Unknown Provider - 06/03/2024 EXAMINATION: [...] cervical spine is otherwise preserved. Diffuse low O5helnbi intensity is present of osseous structures. This [...] possible to obtain thecompleted interpretation. Workstation ID: [id number] 5' 4.5 151.02 us Unknown Provider [facility] Final Resu lt * MRI LUMBAR SPINE [...] obtain the completed interpretation. ? Workstation ID: [id number] 5' 4.5 151.02 Procedure Note [facility], Unknown Provider - 06/03/2024 INDICATION: [...] possible to obtain thecompleted interpretation. Workstation ID: [id number] 5' 4.5 151.02 us Unknown Provider [facility] Final Resu lt documented in this encounter Visit Diagnoses Not on filedocumented in this encounter Care Teams Career Placement Specialist Relationship Specialty Start Date End Date Alfreda Costa DO [address] [place] [address] PCP - General Internal Medicine 09/03/19 documented as of this encounter
--- OUTSIDE RECORDS SUMMARY | 2024-06-25 19:19 | XMS_ITS | Encounter Summary ---
Demographics Address [address] [place] [address] Mobile Phone Home Phone Email Address Preferred Language Israeli Marital Status Holiness Affiliation Unknown Race White Ethnic Group Unknown Author Organization [facility] Address [address] [place] [address] Support Name Relationship Address Phone [place] Haas Emergency Contact [address] [place] [address] Shana Danielle Emergency Contact [address] [place] [address] Care Team Providers Care Almond Blancher Name Role Phone Igor Alfreda Primary Care Provider [phone] Encounter Details Date Type Department Care Team (Late st Contact Info) Description 06/01/2024 ER [facility] [address] [place] [address] [facility], Unknown Provider Social History Tobacco Use [...] on file documented as of this encounter ED Notes * [facility], Unknown Provider - 06/11/2024 8:49 AM EST ED Continuation of Care by Yovany Khan MD at 06/01/2024 3:16 PM Author: Yovany Khan MD Service: Emergency Medicine Author Type: Resident Filed: 06/10/2024 9:44 PM Date of Service: 06/01/2024 3:16 PM Status: Attested Director Home Health: Yovany Khan MD (Resident) Cosigner: Cleveland Napoles MD at 06/11/2024 8:49 AM Attestation signed by Cleveland Napoles MD at 06/11/2024 8:49 AM Attending to Resident/Fellow - I saw and evaluated the patient that I received in signout from the prior attending. I discussed the case with the previous attending, and discussed the plan with the resident(s)/fellow(s) and agree with the findings and plan as documented by the resident(s)/fellow(s). Alston elements, clarifications and/or exceptions are noted by me. Dorothy Garcia Kathie : 1960 CSN: [id number] ED Continuation of Care 06/01/24 3:16 PM Sign out 63-year-old female with history of MDD, recent admission at [facility] after being found have Streptococcus intermedius bacteremia likely secondary to left abdominal muscle abscess status post IR guided drainage, discharged on IV antibiotics, also found to have PE/DVT discharged on Eliquis who presents emergency department today with hematuria and dysuria. Patient was recently discharged from the hospital 05/30. Since then has had some lower abdominal discomfort that she had while she was hospitalized at [facility]. This morning started having some suprapubic discomfort, dysuria and new hematuria. Denies any vaginal bleeding or any blood in the stool or melena. Called her PCP out of concern for this, who recommended she come to the ED for evaluation. Patient denies any other symptoms. No fevers or chills. No dizziness or lightheadedness. No chest pain or shortness of breath. No nausea or vomiting. BS US showed clot but was voiding on her own so no awan placed UA with hematuria Urine is still yeimi blood CT AP for question of injury during her abscess drain did not show any new injury or issues with the abcess 06/01/24 6:08 PM Attending Note: urine is less bloody. Urology does not rec any CBI. I think it is best to continue anticoagulant at this time given recent PE/DVT. Will consider observation for this till them am. Will d/w the patient MDM Pt was admitted to the hospital ED Course as of 06/01/24 180TueJun 01, 2024 1222 ED Attending Note 63 y/o female with [facility] who presents with difficulty urinating and lower abd pain/suprapubic pain this AM, dysuria and hematuria. Patient bacteremic at St . Also had PE/DVT on eliquis during the visit. Discharged 2 days ago. [CM] 1301 Patient was able to spontaneously void on her own. Given this, will defer 3-way awan at this time. [AP] 1729 CT AP shows: IMPRESSION: 1. Segmental pulmonary embolism in the [...] follow-up chest CT in 3 months. (Incidental) [MB] 1730 Given hematuria with a stone and PE/DVT who was recently on Eliquis will wait for urology to weigh in and discuss AC given the stone and large hematuria [MB] ED Course User Index [AP] Ross Lobato MD [CM] Luz Fisher MD [MB] Yovany Khan MD [facility] 1960 [facility]N: [id number] * [facility], Unknown Provider - 06/05/2024 1:56 PM EST ED Provider Notes by Ross Lobato MD at 06/01/2024 10:46 AM Author: Ross Lobato MD Service: Emergency Medicine Author Type: Resident Filed: 06/04/2024 2:24 PM Date of Service: 06/01/2024 10:46 AM Status: Attested Director Home Health: Ross Lobato MD (Resident) Cosigner: Luz Fisher MD at 06/05/2024 1:55 PM Attestation signed by Luz Fisher MD at 06/05/2024 1:55 PM Attending to Resident/Fellow - I saw and evaluated the patient. I discussed the case with the resident(s)/fellow(s) and agree with the findings and plan as documented by the resident(s)/fellow(s). Alston elements, clarifications and/or exceptions are noted by me. Dorothy Vázquez : 1960 CSN: [id number] History HPI: Chief Complaint Patient presents with ??? Blood in Urine HPI 63-year-old female with history of MDD, recent admission at [facility] after being found have Streptococcus intermedius bacteremia likely secondary to left abdominal muscle abscess status post IR guided drainage, discharged on IV antibiotics, also found to have PE/DVT discharged on Eliquis who presents emergency department today with hematuria and dysuria. Patient was recently discharged from the hospital 05/30. Since then has had some lower abdominal discomfort that she had while she was hospitalized at [facility]. This morning started having some suprapubic discomfort, dysuria and new hematuria. Denies any vaginal bleeding or any blood in the stool or melena. Called her PCP out of concern for this, who recommended she come to the ED for evaluation. Patient denies any other symptoms. No fevers or chills. No dizziness or lightheadedness. No chest pain or shortness of breath. No nausea or vomiting. No other new symptoms. Patient History Past Medical History: Diagnosis Date ??? Anxiety ??? Depression ??? High cholesterol ??? Syncope No past surgical history on file. No family history on file. Social History Tobacco Use ??? Smoking status: Never ??? Smokeless tobacco: Never Substance Use Topics ??? Alcohol use: Never ??? Drug use: Never Sexuality and Gender Identity Sexuality Legal Information Legal first name: Dorothy Legal last name: [place] Legal sex: Female Gender Identity Patient's sex assigned at : Female Organ Inventory Organs the patient currently has: Organs present at or expected at to develop: Organs surgically enhanced or constructed: Organs hormonally enhanced or developed: breasts cervix ovaries uterus vagina penis prostate testes Review of Systems REVIEW OF SYSTEMS: Physical Exam Physical Exam ED Triage Vitals [06/01/24 1105] Temp Heart Rate Resp BP SpO2 36.9 ??C (98.4 ??F) 85 16 103/65 99 % Temp src Heart Rate Source Patient Position BP Location Set FiO2 (O2%) -- -- -- -- -- Physical Exam Vitals and nursing note reviewed. Constitutional: General: She is not in acute distress. HENT: Head: Normocephalic. Cardiovascular: Rate and Rhythm: Normal rate and regular rhythm. Pulmonary: Effort: Pulmonary effort is normal. No respiratory distress. Breath sounds: Normal breath sounds. Abdominal: Palpations: Abdomen is soft. Tenderness: There is abdominal tenderness (Lower abdomen). There is no guarding or rebound. Musculoskeletal: Cervical back: Normal range of motion. Skin: General: Skin is warm and dry. Comments: No overlying skin changes/wounds to abdomen Neurological: Mental Status: She is alert and oriented to person, place, and time. Medical Decision Making and ED Course Assessment and Plan: 63-year-old female with history of MDD, recent admission at [facility] after being found have Streptococcus intermedius bacteremia likely secondary to left abdominal muscle abscess status post IR guided drainage, discharged on IV antibiotics, also found to have PE/DVT discharged on Eliquis who presents emergency department today with hematuria and dysuria that started today. No fevers, no nausea or vomiting. Here she is well-appearing, afebrile, vitals reassuring. Exam as above. Bedside ultrasound performed demonstrating distended bladder with heterogeneous material within thebladder suggestive of blood clots. Differential includes hemorrhagic cystitis, hematuria in the setting of newly started anticoagulation. Given her recent IR procedure with anterior approach, consider bladder injury. Given recent bacteremia and DVT/PE, consider renal infarct though less likely. Will obtain labs including CBC, BMP, and UA. Will pursue CT abdomen pelvis. If patient unable to void here, will plan to place three-way Awan for bladder irrigation. 1500 See ED course below for additional updates. Labs with leukocytosis of 14, hemoglobin 10.2. UA with 3+ blood, greater than 180 RBCs, nitrite negative, negative LE, 0 WBC, no bacteria. BMP with reassuring electrolytes and kidney function. Patient ultimately signed out to [facility] pod team, pending CT abdomen pelvis. Also plan for urology consult given hematuria on anticoagulation. Amount and/or Complexity of Data Reviewed: Type of data reviewed: external radiology data reviewed Type of external notes reviewed: hospitalization Details: 63-year-old female with history of MDD, recent admission at [facility] after being found have Streptococcus intermedius bacteremia likely secondary to left abdominal muscle abscess statuspost IR guided drainage, discharged on IV antibiotics, also found to have PE/DVT discharged on Eliquis ED Course as of 06/04/24 1419 TueJun 01, 2024 1222 ED Attending Note 63 y/o female with recent [facility] admission who presents with difficulty urinating and lower abd pain/suprapubic pain this AM, dysuria and hematuria. Patient bacteremic at [facility]. Also had PE/DVT on eliquis during the visit. Discharged 2 days ago. [CM] 1301 Patient was able to spontaneously void on her own. Given this, will defer 3-way awan at this time. [AP] 1729 CT AP shows: IMPRESSION: 1. Segmental pulmonary embolism in the [...] follow-up chest CT in 3 months. (Incidental) [MB] 1730 Given hematuria with a stone and PE/DVT who was recently on Eliquis will wait for urology to weigh in and discuss AC given the stone and large hematuria [MB] ED Course User Index [AP] Ross Lobato MD [CM] Luz Fisher MD [MB] Yovany Khan MD Dorothy Vázquez : 1960 CSN: [id number] Ross Lobato MD Resident 06/04/24 1424 Electronically signed by Interface, [facility] External Transcriptions at 06/05/2024 2:01 PM EST documented in this encounter Plan of Treatment Upcoming Encounters Date Type Department Care Team (Late st Contact Info) Description 06/27/2024 11:00 AM EST Office Visit [facility] [address] [place] [address] Deanne Ibarra PA [address] [place] [address] HFU 08/16/2024 10:25 AM EDT CPE - Comprehensive Physical Exam [facility] [address] [place] [address] Alfreda Costa DO [address] [place] [address] Physical - LETTER SENT TO [facility]ULE- [facility] 02/27/2025 1:15 PM EST Radiology [facility]. [facility] [address] [place] [phone] documented as of this encounter Procedures * Due to [place] state law, this organization might not be sharing negative HIV tests. Procedure Name Priority Date/Time Associated Diagnosis Comments CT ABDOMEN PELVIS W CONTRAST 06/01/2024 5:47 PM EST TYPE AND SCREEN Routine 06/01/2024 1:01 PM EST CBC AUTO DIFFERENTIAL Routine 06/01/2024 1:01 PM EST BASIC METABOLIC PANEL Routine 06/01/2024 1:01 PM EST URINALYSIS W/REFLEX TO MICROSCOPIC & CULTURE Routine 06/01/2024 11:09 AM EST documented in this encounter Results * Due to [place] state law, this organization might not be sharing negative HIV tests. * (ABNORMAL) CT ABDOMEN PELVIS W CONTRAST (06/01/2024 5:47 PM EST) Incidental Findings Yes(A) [facility] Anatomical Region Laterality Modality Other 06/01/2024 5:47 PM EST Addenda Addendum by [facility], Unknown Provider on 06/01/2024 5:49 PM EST COMMUNICATION: The findings were communicated via [employer] secure chat acknowledged by Dr. Khan at 5:35 PM on 06/01/2024. If this radiology report contains a blank impression section, it is an incomplete radiology report. ??Please contact the interpreting radiologist or applicable radiology division as soon as possible to obtain the completed interpretation. ? Workstation ID: [id number] COMPARISON: None ?? FINDINGS: Evaluation of the [...] the ordering or responsible provider via the [employer] system on 06/01/2024 5:05 PM. ??Receipt of this communication by the responsible provider will be documented in [employer] upon receiving acknowledgement if applicable, Message ID [id number]. If this radiology report contains a blank impression section, it is an incomplete radiology report. ??Please contact the interpreting radiologist or applicable radiology division as soon as possible to obtain the completed interpretation. ? Workstation ID: [id number] Narrative 06/01/2024 5:13 PM EST COMPARISON: [...] the ordering or responsible provider via the [employer] system on 06/01/2024 5:05 PM. ??Receipt of this communication by the responsible provider will be documented in [employer] upon receiving acknowledgement if applicable, Message ID [id number]. If this radiology report contains a blank impression section, it is an incomplete radiology report. ??Please contact the interpreting radiologist or applicable radiology division as soon as possible to obtain the completed interpretation. ? Workstation ID: [id number] Procedure Note [facility], Unknown Provider - 06/01/2024 COMPARISON: None FINDINGS: Evaluation of the lung bases reveals a group of nodules, each measuringapproximately 10-11 mm in the left lower lobe. A nonocclusive fillingdefect in a segmental pulmonary arterial branch of the left lower lobe isalso seen (series 202, images 12-17), consistent with [...] to theordering or responsible provider via the [employer] Findingssystem on 06/01/2024 5:05 PM. Receipt of this communication by theresponsible provider will be documented in [employer] upon receiving acknowledgement ifapplicable, Message ID [id number]. If this radiology report contains a blank impression section, it is anincomplete radiology report. Please contact the interpreting radiologistor applicable radiology division as soon as possible to obtain thecompleted interpretation. Workstation ID: [id number] 135 us Unknown Provider [facility] Final Resu lt * TYPE AND SCREEN (06/01/2024 1:01 PM EST) ABO BLOOD TYPE O [facility] RH TYPE Positive [facility] EXPIRATION DATE/TIME 2024-06-04 23:59 [facility] ANTIBODY SCREEN Negative [facility] 06/01/2024 1:01 PM EST us Unknown Provider [facility] Edited Res ult - Final [facility] [employer] [address] [place] [address] * (ABNORMAL) BASIC METABOLIC PANEL (06/01/2024 1:01 PM EST) Sodium 137 135 - 145 mmol/L [facility] Potassium 4.3 3.5 - 5.3 mmol/L [facility] Chloride 100 98 - 107 mmol/L [facility] Carbon dioxide 26 22 - 32 mmol/L [facility] Urea Nitrogen Blood (BUN) 13 7 - 23 mg/dL [facility] Creatinine 0.72 0.50 - 1.20 mg/dL [facility] Glucose 111(H) 65 - 99 mg/dL [facility] Calcium 9.3 8.6 - 10.5 mg/dL [facility] Anion gap 11 5 - 15 [facility] EGFR >90 >=60 mL/min/1.7 3m2 [facility] Comment: The estimated glomerular filtration rate (eGFR) [...] of Race in Diagnosing Kidney Disease . 06/01/2024 1:01 PM EST us Unknown Provider [facility] Final Resu lt [facility] [employer] [address] [place] [address] * (ABNORMAL) CBC AUTO DIFFERENTIAL (06/01/2024 1:01 PM EST) WBC 14.1(H) 3.8 - 10.8 10*3/uL [facility] RBC 3.69(L) 3.80 - 5.10 10*6/uL [facility] Hemoglobin 10.2(L) 11.7 - 15.5 g/dL [facility] Hematocrit 31.6(L) 35.0 - 45.0 % [facility] MCV 85.6 80.0 - 100.0 fL [facility] MCH 27.6 27.0 - 33.0 pg [facility] MCHC 32.3 32.0 - 36.0 g/dL [facility] RDW 14.4 11.0 - 15.0 % [facility] PLT 787(H) 140 - 400 10*3/uL [facility] Platelet mean volume 8.6 7.5 - 12.5 fL [facility] Neutrophils % 69.9 % [facility] Granulocytes.betty ture/100 leukocytes 0.9 0.0 - 0.9 % [facility] Lymphocytes % 20.5 % [facility] Monocytes % 7.5 % [facility] Eosinophils % 0.8 % [facility] Basophils % 0.4 % [facility] Neutrophils # 9.86(H) 1.50 - 7.80 10*3/uL [facility] Immature Granulocytes # 0.12(H) <=0.03 10*3/uL [facility] Lymphocytes # 2.90 0.85 - 3.90 10*3/uL [facility] Monocytes # 1.10(H) 0.20 - 0.95 10*3/uL [facility] Eosinophils # 0.10 0.02 - 0.50 10*3/uL [facility] Basophils # 0.10 0.00 - 0.20 10*3/uL [facility] Erythrocytes.nucl eated/100 leukocytes 0.0 /100 WBCs [facility] Erythrocytes.nucl eated <0.01 <0.01 10*3/uL [facility] 06/01/2024 1:01 PM EST us Unknown Provider [facility] Final Resu lt [facility] [employer] [address] [place] [address] * (ABNORMAL) URINALYSIS W/REFLEX TO MICROSCOPIC & CULTURE (06/01/2024 11:09 AM EST) Color (Urine) Red(A) Colorless, Light Yellow, Yellow, Dark Yellow [facility] Clarity (Urine) Cloudy(A) Clear [facility] Specific gravity (Urine) 1.015 1.005 - 1.030 [facility] pH (Urine) 6.0 4.6 - 8.0 [facility] Protein (Urine) 2+(A) Negative [facility] Glucose (Urine) Negative Negative [facility] Ketones (Urine) Negative Negative [facility] Bilirubin (Urine) Negative Negative [facility] Hemoglobin (Urine) 3+(A) Negative [facility] Nitrite (Urine) Negative Negative [facility] Urobilinogen (Urine) Normal Normal [facility] Leukocyte esterase (Urine) Negative Negative [facility] WBC (Urine) 0 0 - 2 /HPF [facility] RBC (Urine Sed) >180(H) 0 - 2 /HPF [facility] Hyaline casts (Urine sed) 0 0 - 2 /LPF [facility] Bacteria (Urine) None None /HPF /HPF [facility] Mucus (Urine sed) Few /LPF [facility] 06/01/2024 11:0 9 AM EST us Unknown Provider [facility]OR[facility] Final Resu lt [facility] [employer] [address] [place] [address] documented in this encounter Visit Diagnoses Not on filedocumented in this encounter Care Teams Almond Blancher Relationship Specialty Start Date End Date Alfreda Costa DO [address] [place] [address] PCP - General Internal Medicine 09/03/19 documented as of this encounter
--- OUTSIDE RECORDS SUMMARY | 2024-06-25 19:20 | XMS_ITS | Encounter Summary ---
Demographics Address [address] [place] [address] Mobile Phone Home Phone Email Address Preferred Language Citizen Of [place] Marital Status Restorationist Affiliation Unknown Race White Ethnic Group Unknown Author Organization [facility] Address [address] [place] [address] Support Name Relationship Address Phone [place] Haas Emergency Contact [address] [place] [address] Shana Danielle Emergency Contact [address] [place] [address] Care Team Providers Care Licensed Appraiser Name Role Phone Baldo Parmar MD Primary Care Provider Unavaila Ami Ansari-C Unavailable Unavailab Elizabet Hawthorne MD Primary Care Provider [phone] Elizabet Hair MD Primary Care Provider [phone] Marybeth Chacon MD Primary Care Provider [phone] Alfreda Costa DO Primary Care Provider [phone] Leela Nieto SPORTS COMPLEX ATTENDANT Unavailable Unavailable Encounter Details Date Type Department Care Team ([facility] Contact Info) Description 07/10/2013 Orders Only [facility] [address] [place] [phone] Baldo Parmar MD Social History Tobacco Use Types Packs/Day Years Used Date Smoking Tobacco: Never Smokeless Tobacco: Never Alcohol Use Standard Drinks/Week Comments No 0 (1 standard drink = 0.6 oz pur e alcohol) Comments No Sex and Gender Information Value Date Recorded Sex Assigned at Not on file Legal Sex Female 2:53 AM EDT Gender Identity Not on file Sexual Orientation Not on file Occupation Industry Job Start Date Job End Date Not on file Not on file Not on file Not on file documented as of this encounter Plan of Treatment Upcoming Encounters Date Type Department Care Team (Late Contact Info) Description 06/27/2024 11:00 AM EST Office Visit [facility] [address] [place] [phone] Deanne Ibarra PA [address] [place] [address] HFU 08/16/2024 10:25 AM EDT CPE - Comprehensive Physical Exam [facility] [address] [place] [phone] Alfreda Costa DO [address] [place] [address] Physical - LETTER SENT TO [facility] 02/27/2025 1:15 PM EST Radiology [facility] [address] [place] [address] documented as of this encounter Visit Diagnoses Not on filedocumented in this encounter Additional Health Concerns Infection Onset Date Last Indicated Resolved Time COVID-19 Rule-Out 01/05/2021 01/05/2021 01/06/2021 11:16 AM EDT documented as of this encounter Care Teams Licensed Appraiser Relationship Specialty Start Date End Date Baldo Parmar MD PCP - General 05/11/12 12/11/17 Ami Osullivan PA-C PCP - Backup PCP Internal Medicine 06/16/15 11/24/17 Elizabet Hair MD PCP - General Family Medicine 12/12/17 02/14/18 Elizabet Hair MD PCP - General 02/15/18 08/15/18 Marybeth Chacon MD PCP - General Internal Medicine 08/16/18 09/02/19 Alfreda Costa DO [address] [place] [address] PCP - General Internal Medicine 09/03/19 Leela Nieto NP [address] [place] [address] PCP - Backup PCP Internal Medicine 09/03/19 11/17/22 documented as of this encounter
--- OUTSIDE RECORDS SUMMARY | 2024-06-25 19:20 | XMS_ITS | Encounter Summary ---
Demographics Address [address] [place] [address] Mobile Phone Home Phone Email Address [email or web address] Preferred Language Malagasy Marital Status Alevism Affiliation Unknown Race White Ethnic Group Unknown Author Organization [facility] Address [address] [place] [address] Support Name Relationship Address Phone [place] Jangain Emergency Contact 2 [address] [place] [address] Shana Danielle Emergency Contact [address] [place] [address] Care Team Providers Care Senior Shipping Clerk Name Role Phone Baldo Parmar MD Primary Care Provider Unavaila Ami Ansari-Megan Unavailable Unavailab Elizabet Hawthorne MD Primary Care Provider [phone] Elizabet Hair MD Primary Care Provider [phone] Marybeth Chacon MD Primary Care Provider [phone] Alfreda Costa DO Primary Care Provider Leela Nieto [employer] Unavailable Unavailable Reason for Visit * Reason Comments Leg Pain Encounter Details Date Type Department Care Team ([facility] st Contact Info) Description 07/22/2016 Telephone [facility] Vascular Surgery [address] [facility] [address] [place] [phone] Baldo Davis MD [address] [place] [address] Leg Pain Social History Tobacco Use Types Packs/Day Years Used Date Smoking Tobacco: Never Smokeless Tobacco: Never Alcohol Use Standard Drinks/Week Comments Yes 0 (1 standard drink = 0.6 oz pur e alcohol) occasional Comments No Sex and Gender Information Value [...] encounter Miscellaneous Notes * Telephone Encounter - Cherry Pressley - 08/02/2016 2:12 PM EDT Spoke to pt, booked duplex and f/u on 08/19. * Telephone Encounter - Clara Leslie - 07/27/2016 11:03 AM EDT Pt called back. Tried to get a active insurance for her but both where coming up as ineligible. Pt is going to call insurance then call us back. * Telephone Encounter - Priscilla Chin - 07/27/2016 9:10 AM EDT LMOM to book appt with vas lab and with us. * Telephone Encounter - Felicita Wilkerson - 07/26/2016 10:[address] Davis would you like testing done before this appointment? * Telephone Encounter - Nolvia Rahman - 07/22/2016 5:02 PM EDT PSS: Please schedule appt * Telephone Encounter - Priscilla Chin - 07/22/2016 4:08 PM EDT Patient Calling-Went to OBGYN who said she should get her legs checked out before the obgyn can prescribe any hormones for her. She was last seen in 2010 for Varicose veins with Dr. Davis. Please advise. documented in this encounter Plan of Treatment Upcoming Encounters Date Type Department Care Team (Late st Contact Info) Description 06/27/2024 11:00 AM EST Office Visit [facility] [address] [place] [address] Deanne Ibarra PA [address] [place] [address] HFU 08/16/2024 10:25 AM EDT CPE - Comprehensive Physical Exam [facility] 4 [place] [phone] Alfreda Costa DO 4 [place] [address] Physical - LETTER SENT TO [facility] 02/27/2025 1:15 PM EST Radiology [address] Mammography 5 [place] [address] documented as of this encounter Visit Diagnoses Not on filedocumented in this encounter Additional Health Concerns Infection Onset Date Last Indicated Resolved Time COVID-19 Rule-Out 01/05/2021 01/05/2021 01/06/2021 11:16 AM EDT documented as of this encounter Care Teams Senior Shipping Clerk Relationship Specialty Start Date End Date Baldo Parmar MD PCP - General 05/11/12 12/11/17 Ami Osullivan PATellyC PCP - Backup PCP Internal Medicine 06/16/15 11/24/17 Elizabet Hair MD PCP - General Family Medicine 12/12/17 02/14/18 Elizabet Hair MD PCP - General 02/15/18 08/15/18 Marybeth Chacon MD PCP - General Internal Medicine 08/16/18 09/02/19 Alfreda Costa DO [address] [facility] [place] [address] PCP - General Internal Medicine 09/03/19 Leela Nieto NP [address] [place] [address] PCP - Backup PCP Internal Medicine 09/03/19 11/17/22 documented as of this encounter
--- OUTSIDE RECORDS SUMMARY | 2024-06-25 19:20 | XMS_ITS | Encounter Summary ---
Demographics Address [address] [place] [address] Mobile Phone Home Phone Email Address Preferred Language Algerian Marital Status Samaritan Affiliation Unknown Race White Ethnic Group Unknown Author Organization [facility] Address [address] [place] [address] Support Name Relationship Address Phone [place] Haas Emergency Contact [address] [place] [address] Shana Danielle Emergency Contact [address] [place] [address] Care Team Providers Care Senior Java Ui Developer Name Role Phone Baldo Parmar MD Primary Care Provider Unavaila Ami Ansari-Megan Unavailable Unavailab Elizabet Hawthorne MD Primary Care Provider [phone] Elizabet Hair MD Primary Care Provider [phone] Marybeth Chacon MD Primary Care Provider [phone] Alfreda Costa DO Primary Care Provider [phone] Leela Nieto NP Unavailable Unavailable Encounter Details Date Type Department Care Team (Late st Contact Info) Description 05/04/2017 Orders Only [facility] [address] [place] [id number] Roselyn Hopper NP Social History Tobacco Use Types Packs/Day Years [...] on file documented as of this encounter Progress Notes * Roselyn Hopper NP - 05/05/2017 11:47 AM EST Call patient about recent lab results. CBC, basic metabolic panel, and Lyme titer were all negative/unremarkable. As discussed in our visit, with Lyme ruled out, I have placed orders to further evaluate her symptoms of polyarthralgia and polymyalgia. She can go directly to lab at her convenience. documented in this encounter Plan of Treatment Upcoming Encounters Date Type Department Care Team (Late st Contact Info) Description 06/27/2024 11:00 AM EST Office Visit [facility] 4 [place] [address] Deanne Ibarra PA 4 [place] [address] HFU 08/16/2024 10:25 AM EDT CPE - Comprehensive Physical Exam [facility] 4 [place] [address] Alfreda Costa DO 4 [place] [address] Physical - LETTER SENT TO [facility] 02/27/2025 1:15 PM EST Radiology [facility] 5 [place] [address] documented as of this encounter Procedures * Due to [place] [employer] law, this organization might not be sharing negative HIV tests. Procedure Name Priority Date/Time Associated Diagnosis Comments BORRELIA BURGDORFERI AB (LYME), EIA WITH REFLEX IGG, IGM WB Routine 05/04/2017 3:00 PM EST Polyarthralgia CBC INCLUDES DIFFERENTIAL AND PLATELET COUNT Routine 05/04/2017 3:00 PM EST Polyarthralgia BASIC METABOLIC PANEL WITH (GFR) Routine 05/04/2017 3:00 PM EST Polyarthralgia documented in this encounter Results * Due to [place] state law, this organization might not be sharing negative HIV tests. * BORRELIA BURGDORFERI AB (LYME), EIA WITH REFLEX IGG, IGM WB (05/04/2017 3:00 PM EST) [facility] Borrelia burgdorferi Ab <0.90 index [facility] Comment: ? Index ?Interpretation ? ----- ? < 0.90 ? Negative ? 0.90-1.09 ?Equivocal ? > 1.09 ? Positive As recommended by the Food and Drug Administration (FDA), all samples with positive or equivocal results in a Borrelia burgdorferi antibody screen will be tested using a blot method. Positive or equivocal screening test results should not be interpreted as truly positive until verified as such using a supplemental assay (e.g., B. burgdorferi blot). The screening test and/or blot for B. burgdorferi antibodies may be falsely negative in early stages of Lyme disease, including the period when erythema migrans is apparent. 05/04/2017 3:00 PM EST 05/04/2017 10:54 PM EST Narrative Resulting Agency Comment [id number] Roselyn Hopper NP LABORATORY Final Result Performing Organization Address City/State/[facility] Co de Phone Number [facility] [address] [place] [address] * (ABNORMAL) CBC INCLUDES DIFFERENTIAL AND PLATELET COUNT (05/04/2017 3:00 PM EST) [facility] WBC 7.1 3.8 - 10.8 Thousand/u L [facility] RBC 4.66 3.80 - 5.10 Million/uL [facility] Hemoglobin 13.1 11.7 - 15.5 g/dL [facility] Hematocrit 39.5 35.0 - 45.0 % [facility] MCV 84.8 80.0 - 100.0 fL [facility] MCH 28.0 27.0 - 33.0 pg [facility] MCHC 33.0 32.0 - 36.0 g/dL [facility] RDW 16.2(H) 11.0 - 15.0 % [facility] PLT 340 140 - 400 Thousand/u L [facility] MPV 8.1 7.5 - 12.5 fL [facility] Neutrophils # 3216 1500 - 7800 cells/uL [facility] Lymphocytes # 3060 850 - 3900 cells/uL [facility] Monocytes # 682 200 - 950 cells/uL [facility] Eosinophils # 107 15 - 500 cells/uL [facility] Basophils # 36 0 - 200 cells/uL [facility] Neutrophils % 45.3 % [facility] Lymphocytes % 43.1 % [facility] Monocytes % 9.6 % [facility] Eosinophils % 1.5 % [facility] Basophils % 0.5 % [facility] 05/04/2017 3:00 PM EST 05/04/2017 10:54 PM EST Narrative Resulting Agency Comment [id number] Roselyn Hopper [facility] SAME DAY RESULT Final Result Performing Organization Address City/State/[facility] Co de Phone Number [facility] [address] [place] [address] * BASIC METABOLIC PANEL WITH (GFR) (05/04/2017 3:00 PM EST) Glucose 95 65 - 99 mg/dL [facility] Comment:Fasting reference in terval Urea Nitrogen Blood (BUN) 22 7 - 25 mg/dL [facility] Creatinine 0.81 0.50 - 1.05 mg/dL [facility] Comment: For patients >49 years of age, the reference limit for Creatinine is approximately 13% higher for people identified as -Guyanese. GFR 82 > OR = 60 mL/min/1 .73m2 [facility] GFR () 95 > OR = 60 mL/min/1 .73m2 [facility] BUN/Creatinine Ratio NOT APPLICABLE 6 - 22 (calc) [facility] Sodium 140 135 - 146 mmol/L [facility] Potassium 4.6 3.5 - 5.3 mmol/L [facility] Chloride 100 98 - 110 mmol/L [facility] Carbon dioxide 26 20 - 31 mmol/L [facility] Calcium 10.2 8.6 - 10.4 mg/dL [facility] 05/04/2017 3:00 PM EST 05/04/2017 10:54 PM EST Narrative [facility] - 05/05/2017 1:34 AM EST Please note that this estimated GFR does not include an adjustment for the patient's height or weight, and can therefore, be viewed as reliable only for patients with heights between 60 and 72 . More precise quantification using a 24-hour urine sample or height-based algorithm is recommended for patients outside of this range of height and for those individuals with more precise needs for GFR calculation. Resulting Agency Comment [id number] Roselyn Hopper [facility] Final Result [facility] [address] [place] [address] documented in this encounter Visit Diagnoses Diagnosis Polyarthralgia Pain in joint, multiple sites documented in this encounter Additional Health Concerns Infection Onset Date Last Indicated Resolved Time COVID-19 Rule-Out 01/05/2021 01/05/2021 01/06/2021 11:16 AM EDT documented as of this encounter Care Teams Senior Java Ui Developer Relationship Specialty Start Date End Date Baldo Parmar MD PCP - General 05/11/12 12/11/17 Ami Osullivan PA-C PCP - Backup PCP Internal Medicine 06/16/15 11/24/17 Elizabet Hair MD PCP - General Family Medicine 12/12/17 02/14/18 Elizabet Hair MD PCP - General 02/15/18 08/15/18 Marybeth Chacon MD PCP - General Internal Medicine 08/16/18 09/02/19 Alfreda Costa DO [address] [facility] [address] PCP - General Internal Medicine 09/03/19 Leela Nieto NP [address] [place] [address] PCP - Backup PCP Internal Medicine 09/03/19 11/17/22 documented as of this encounter
--- OUTSIDE RECORDS SUMMARY | 2024-06-25 19:20 | XMS_ITS | Encounter Summary ---
Demographics Address [address] [place] [address] Mobile Phone Home Phone Email Address Preferred Language Venezuelan Marital Status Yazidi Affiliation Unknown Race White Ethnic Group Unknown Author Organization [facility] Address [address] [place] [address] Support Name Relationship Address Phone [place] Haas Emergency Contact [address] [place] [address] Shana Danielle Emergency Contact [address] [place] [address] Care Team Providers Care Resident Care Provider Name Role Phone Baldo Parmar MD Primary Care Provider Unavaila Ami Ansari PA-C Unavailable Unavailab Elizabet Hawthorne MD Primary Care Provider [phone] Elizabet Hair MD Primary Care Provider [phone] Marybeth Chacon MD Primary Care Provider [phone] Alfreda Costa DO Primary Care Provider [phone] Leela Nieto DEVOPS ENGINEER Unavailable Unavailable Reason for Referral * OUTPT PROCEDURES AND DIAGNOSTICS (Routine) - Auth Not Needed Specialty Diagnoses / Procedures Referred By Contac t Referred To Contact Vascular Lab Diagnoses Varicose vein of leg Procedures REQUEST FOR VENOUS REFLUX STUDY RIGHT NON-FC Baldo Davis MD [address] [place] [address] Phone: tel: fax: Referral ID Status Reason Start Date Expiration Date Visits Requested Visits Authorized [id number] Auth Not Needed Specialty Services Required 05/05/2017 1 1 Encounter Details Date Type Department Care Team ([facility] Contact Info) Description 05/05/2017 Orders Only [facility] Vascular Surgery [address] [facility] [address] [place] [address] Baldo Davis MD [address] [place] [address] Social History Tobacco Use Types Packs/Day Years [...] Upcoming Encounters Date Type Department Care Team ([facility] Contact Info) Description 06/27/2024 11:00 AM EST Office Visit [facility] 4 [place] [address] Deanne Ibarra PA [address] [place] [address] HFU 08/16/2024 10:25 AM EDT CPE - Comprehensive Physical Exam [facility] [address] [place] [address] Alfreda Costa DO [address] [place] [address] Physical - LETTER SENT TO [facility] 02/27/2025 1:15 PM EST Radiology [facility]. Mammography [address] [place] [phone] Scheduled Orders Name Type Priority Associated Diagnoses Orde r Schedule REQUEST FOR VENOUS REFLUX STUDY RIGHT NON-FC cardiovascular Routine Varicose vein of leg Ordered: 05/05/2017 documented as of this encounter Visit Diagnoses Diagnosis Varicose vein of leg Asymptomatic varicose veins documented in this encounter Additional Health Concerns Infection Onset Date Last Indicated Resolved Time COVID-19 Rule-Out 01/05/2021 01/05/2021 01/06/2021 11:16 AM EDT documented as of this encounter Care Teams Resident Care Provider Relationship Specialty Start Date End Date Baldo Parmar MD PCP - General 05/11/12 12/11/17 Ami Osullivan PA-C PCP - Backup PCP Internal Medicine 06/16/15 11/24/17 Elizabet Hair MD PCP - General Family Medicine 12/12/17 02/14/18 Elizabet Hair MD PCP - General 02/15/18 08/15/18 Marybeth Chacon MD PCP - General Internal Medicine 08/16/18 09/02/19 Alfreda Costa DO 4 [place] [address] PCP - General Internal Medicine 09/03/19 Leela Nieto NP 4 [place] [address] PCP - Backup PCP Internal Medicine 09/03/19 11/17/22 documented as of this encounter
--- OUTSIDE RECORDS SUMMARY | 2024-06-25 19:20 | XMS_ITS | Encounter Summary ---
Demographics Address [address] [place] [address] Mobile Phone Home Phone Email Address Preferred Language Sao Tomean Marital Status Religion Affiliation Unknown Race White Ethnic Group Unknown Author Organization [facility] Address [address] [place] [address] Support Name Relationship Address Phone [place] Paz Germain Emergency Contact 2 [address] [place] [address] Shana Danielle Emergency Contact [address] [place] [address] Care Team Providers Care Paginator Name Role Phone Baldo Parmar MD Primary Care Provider Unavaila Ami Ansari-C Unavailable Unavailab Elizabet Hawthorne MD Primary Care Provider [phone] Elizabet Hair MD Primary Care Provider [phone] Marybeth Chacon MD Primary Care Provider [phone] Alfreda Costa DO Primary Care Provider [phone] Leela Nieto CORRIDOR REDEVELOPMENT MANAGER Unavailable Unavailable Encounter Details Date Type Department Care Team (Late st Contact Info) Description 07/12/2012 Orders Only [facility] Endocrinology [address] [place] [phone] Marcy David MD [facility] [address] [address] Social History Tobacco Use Types Packs/Day Years [...] Description 06/27/2024 11:00 AM EST Office Visit [facility] [address] [place] [address] Deanne Ibarra PA [address] [place] [address] HFU 08/16/2024 10:25 AM EDT CPE - Comprehensive Physical Exam [facility] [address] [place] [phone] Alfreda Costa DO [address] [place] [address] Physical - LETTER SENT TO [facility] 02/27/2025 1:15 PM EST Radiology [facility]. Mammography [address] [place] [address] Scheduled Orders Name Type Priority Associated Diagnoses Orde r Schedule REQUEST FOR THYROID FINE NEEDLE US GUIDED BIOPSY NON-FC Procedures Routine Multinodular goiter Ordered: 07/12/2012 documented as of this encounter Visit Diagnoses Diagnosis Multinodular goiter- Primary Nontoxic multinodular goiter documented in this encounter Additional Health Concerns Infection Onset Date Last Indicated Resolved Time COVID-19 Rule-Out 01/05/2021 01/05/2021 01/06/2021 11:16 AM EDT documented as of this encounter Care Teams Paginator Relationship Specialty Start Date End Date Baldo Parmar MD PCP - General 05/11/12 12/11/17 Ami Osullivan, PATellyC PCP - Backup PCP Internal Medicine 06/16/15 11/24/17 Elizabet Hair MD PCP - General Family Medicine 12/12/17 02/14/18 Elizabet Hair MD PCP - General 02/15/18 08/15/18 Marybeth Chacon MD PCP - General Internal Medicine 08/16/18 09/02/19 Alfreda Costa DO [address] [place] [address] PCP - General Internal Medicine 09/03/19 Leela Nieto NP 4 [place] [address] PCP - Backup PCP Internal Medicine 09/03/19 11/17/22 documented as of this encounter
--- OUTSIDE RECORDS SUMMARY | 2024-06-25 19:20 | XMS_ITS | Encounter Summary ---
Demographics Address [address] [place] [address] Mobile Phone Home Phone Email Address [email or web address] Preferred Language Barbadian Marital Status Oriental Orthodox Affiliation Unknown Race White Ethnic Group Unknown Author Organization [facility] Address [address] [place] [address] Support Name Relationship Address Phone [place] Ha[facility] Emergency Contact 2 [address] [place] [address] Shana Danielle Emergency Contact [address] [place] [address] Care Team Providers Care Health Information Assistant Name Role Phone Baldo Parmar MD Primary Care Provider Unavaila ble Ami Osullivan-C Unavailable Unavailab Elizabet Hawthorne MD Primary Care Provider [phone] Elizabet Hair MD Primary Care Provider [phone] Marybeth Chacon MD Primary Care Provider [phone] Alfreda Costa DO Primary Care Provider [phone] Leela Nieto CHICKEN STUFFER Unavailable Unavailable Encounter Details Date Type Department Care Team (Late st Contact Info) Description 10/08/2010 Orders Only [facility] [address] [place] [phone] Ami Osullivan, PA-C Social History Tobacco Use Types Packs/Day Years [...] as of this encounter Progress Notes * Alfreda Regan - 10/12/2010 10:45 AM EDTQuick Note: Letter sent * Maria Eugenia Lyons - 10/12/2010 10:13 AM EDTQuick Note: . * Vidal Wilson - 10/09/2010 6:04 PM EDTQuick Note: All labs and hormone levels normal, lyme titers negative. * Alfreda Regan - 10/09/2010 2:21 PM EDTQuick Note: . * Alfreda Regan - 10/09/2010 7:33 AM EDTQuick Note: Holding for lyme panel documented in this encounter Plan of Treatment Upcoming Encounters Date Type Department Care Team (Late st Contact Info) Description 06/27/2024 11:00 AM EST Office Visit [facility] [address] [place] [phone] Deanne Ibarra PA [address] [place] [address] [facility] 08/16/2024 10:25 AM EDT CPE - Comprehensive Physical Exam [facility] [address] [place] [address] Alfreda Costa DO [address] [place] [address] Physical - LETTER SENT TO [facility] 02/27/2025 1:15 PM EST Radiology [address] [facility] [address] [place] [address] documented as of this encounter Procedures * Due to [place] [employer] law, this organization might not be sharing negative HIV tests. Procedure Name Priority Date/Time Associated Diagnosis Comments BASIC METABOLIC PANEL W/GLOMERULAR FILTRATION RATE (EGFR) Routine 10/08/2010 Malaise and fatigue LYME DISEASE PANEL W/WB REFLEX Routine 10/08/2010 Malaise and fatigue CBC 5 PART DIFF Routine 10/08/2010 Malaise and fatigue THYROID STIMULATING HORMONE (TSH) WITH FREE T4 REFLEX, SERUM Routine 10/08/2010 Malaise and fatigue LUTEINIZING HORMONE Routine 10/08/2010 Malaise and fatigue FOLLICLE STIM. HORMONE Routine 10/08/2010 Malaise and fatigue documented in this encounter Results * Due to [place] [employer] law, this organization might not be sharing negative HIV tests. * LYME DISEASE PANEL W/WB REFLEX (10/08/2010) LYME (B. BURGDORFERI) AB SCREEN NEGATIVE [facility] Comment: < OR = 0.90 ?? NEGATIVE 0.91 - 1.09 ?? EQUIVOCAL > OR = 1.10 ?? POSTIVE LYME EIA SCREEN IS REFLEXED TO WESTERN BLOT IF POSITIVE. 10/08/2010 10/08/2010 9:1 5 PM EDT Ami Osullivan PA-C LABORATORY Final Resu lt [facility] [address] [place] [address] * (ABNORMAL) CBC 5 PART DIFF (10/08/2010) WHITE BLOOD COUNT 7.9 3.8 - 10.8 THOUS/UL [facility] RBC 4.22 3.80 - 5.10 MIL/UL [facility] Hemoglobin 12.4 11.7 - 15.5 G/DL [facility] HCT (HEMATOCRIT) 37.1 35.0 - 45.0 % [facility] MCV 88.0 80.0 - 100.0 FL [facility] MCH 29.4 27.0 - 33.0 PG [facility] MCHC 33.4 32.0 - 36.0 G/DL [facility] BAND % 0 0 - 5 % [facility] NEUTROPHIL % 50 48 - 75 % [facility] LYMPHOCYTE % 40 17 - 40 % [facility] MONOCYTE % 10 0 - 14 % [facility] EOSINOPHIL % 0 0 - 5 % [facility] BASOPHIL % 0 0 - 3 % [facility] ATYPICAL LYMPHOCYTE % 0 0 - 5 % [facility] PLATELETS 225 140 - 400 THOUS/UL [facility] BANDS # 0 0 - 750 CELLS/MCL [facility] NEUTROPHILS # 3950 1500 - 7800 CELLS/MCL [facility] LYMPHOCYTES # 3160 850 - 3900 CELLS/MCL [facility] MONOCYTES # 790 200 - 950 CELLS/MCL [facility] EOSINOPHILS # 0(L) 15 - 550 CELLS/MCL [facility] BASOPHILS # 0 0 - 200 CELLS/MCL [facility] ATYPICAL LYMPHOCYTES # 0 0 - 200 CELLS/MCL [facility] RDW 13.6 11.0 - 15.0 % [facility] MPV 8.8 7.5 - 11.5 FL [facility] 10/08/2010 10/08/2010 9:1 5 PM EDT Ami Osullivan PA-C LAB SAME DAY RESULT Final Result [facility] [address] [place] [address] * BASIC METABOLIC PANEL W/GLOMERULAR FILTRATION RATE (EGFR) (10/08/2010) CALCIUM 8.6 8.6 - 10.2 MG/DL [facility] BUN 15 7 - 25 MG/DL [facility] CREATININE 0.70 0.59 - 1.07 MG/DL [facility] Glucose 76 65 - 99 MG/DL [facility] SODIUM 144 135 - 146 MMOL/L [facility] POTASSIUM 3.8 3.5 - 5.3 MMOL/L [facility] CHLORIDE 107 98 - 110 MMOL/L [facility] CARBON DIOXIDE 22 21 - 33 MMOL/L [facility] GFR > 60 60 AND ABOVE [facility] Comment:UNITS: ML/MIN/1.73 S Q METERS EGFR > 60 60 AND ABOVE [facility] Comment:UNITS: ML/MIN/1.73 S Q METERS 10/08/2010 10/08/2010 9:1 5 PM EDT Narrative [facility] - 10/09/2010 4:47 AM EDT Please note that this estimated GFR does [...] with more precise needs for GFR calculation. [employer] PA-C LABORATORY Final Resu lt Performing Organization Address [facility] de Phone Number [facility] [address] [place] [address] * THYROID STIMULATING HORMONE (TSH) WITH FREE T4 REFLEX, SERUM (10/08/2010) TSH, THYROTROPIN 0.633 0.40 - 4.50 UIU/ML [facility] 10/08/2010 10/08/2010 9:1 5 PM EDT [employer] PA-C LABORATORY Final Resu lt Performing Organization Address [facility] de Phone Number [facility] [address] [place] [address] * LUTEINIZING HORMONE (10/08/2010) Luteinizing Hormone (LH) 1.8 MIU/ML [facility] Comment: FOLLICULAR: ??1.9 - 12.5 MIDCYCLE: ??8.7 - 76.3 LUTEAL: ??0.5 - 16.9 POST MENOPAUSAL: ??5.0 - 52.3 10/08/2010 10/08/2010 9:1 5 PM EDT [employer]-C LAB SAME DAY RESULT Final Result Performing Organization Address [facility] de Phone Number [facility] [address] [place] [address] * FOLLICLE STIM. HORMONE (10/08/2010) FSH 2.9 MIU/ML [facility] Comment: FOLLICULAR: 2.5 - 10.2 MIDCYCLE: 3.1 - 17.7 LUTEAL: 1.5 - 9.1 POST MENOPAUSAL: 23.0 - 116.3 10/08/2010 10/08/2010 9:1 5 PM EDT Ami Osullivan PA-C LAB SAME DAY RESULT Final Result [facility] [address] [place] [address] documented in this encounter Visit Diagnoses Diagnosis Malaise and fatigue Other malaise and fatigue documented in this encounter Additional Health Concerns Infection Onset Date Last Indicated Resolved Time COVID-19 Rule-Out 01/05/2021 01/05/2021 01/06/2021 11:16 AM EDT documented as of this encounter Care Teams Health Information Assistant Relationship Specialty Start Date End Date Baldo Parmar MD PCP - General 05/11/12 12/11/17 Ami Osullivan PA-C PCP - Backup PCP Internal Medicine 06/16/15 11/24/17 Elizabet Hair MD PCP - General Family Medicine 12/12/17 02/14/18 Elizabet Hair MD PCP - General 02/15/18 08/15/18 Marybeth Chacon MD PCP - General Internal Medicine 08/16/18 09/02/19 Alfreda Costa DO [address] [place] [address] PCP - General Internal Medicine 09/03/19 Leela Nieto NP [address] [place] [address] PCP - Backup PCP Internal Medicine 09/03/19 11/17/22 documented as of this encounter
--- OUTSIDE RECORDS SUMMARY | 2024-06-25 19:20 | XMS_ITS | Encounter Summary ---
Demographics Address [address] [place] [address] Mobile Phone Home Phone Email Address Preferred Language Spanish Marital Status Baptist Affiliation Unknown Race White Ethnic Group Unknown Author Organization [facility] Address [address] [place] [address] Support Name Relationship Address Phone [place] Haas Emergency Contact [address] [place] [address] Shana Danielle Emergency Contact [address] [place] [address] Care Team Providers Care Patrol Police Lieutenant Name Role Phone Alfreda Costa DO Primary Care Provider [phone] Leela Nieto STEM CLEANING MACHINE FEEDER Unavailable Unavailable Reason for Visit * Reason Comments Mouth Lesions Encounter Details Date Type Department Care Team (Late st Contact Info) Description 12/01/2020 Telephone [facility] [address] [place] [phone] Alfreda Costa DO [address] [place] [address] Mouth Lesions Social History Tobacco Use Types Packs/Day Years Used Date Smoking Tobacco: Never Smokeless Tobacco: Never Alcohol Use Standard Drinks/Week Comments Not Currently 1 (1 standard drink = 0.6 oz pure alcohol) occasional, 1 drink per week at the most PHQ-2 Answer Date Recorded PHQ-2 Score 0 05/15/2020 Comments No Sex and Gender Information Value Date Recorded Sex Assigned at Not on file Legal Sex Female 2:53 AM EDT Gender Identity Not on file Sexual Orientation Not on file 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 Not on file Not on file documented as of this encounter Miscellaneous Notes * Telephone Encounter - , September - 12/01/2020 3:32 PM EDT Brown raised spot on lip She would like a referral to see derm Order done if ok please sign documented in this encounter Plan of Treatment Upcoming Encounters Date Type Department Care Team (Late st Contact Info) Description 06/27/2024 11:00 AM EST Office Visit [facility] [address] [place] [address] Deanne Ibarra PA [address] [place] [address] HFU 08/16/2024 10:25 AM EDT CPE - Comprehensive Physical Exam [facility] [address] [place] [phone] Alfreda Costa DO [address] [place] [address] Physical - LETTER SENT TO [facility] 02/27/2025 1:15 PM EST Radiology [address] [facility] [facility] [address] [place] [address] documented as of this encounter Visit Diagnoses Diagnosis Mouth lesion Other and unspecified diseases of the oral soft tissues documented in this encounter Additional Health Concerns Infection Onset Date Last Indicated Resolved Time COVID-19 Rule-Out 01/05/2021 01/05/2021 01/06/2021 11:16 AM EDT documented as of this encounter Care Teams Patrol Police Lieutenant Relationship Specialty Start Date End Date Alfreda Costa DO [address] [place] [address] PCP - General Internal Medicine 09/03/19 Leela Nieto NP [address] [place] [address] PCP - Backup PCP Internal Medicine 09/03/19 11/17/22 documented as of this encounter
--- OUTSIDE RECORDS SUMMARY | 2024-06-25 19:20 | XMS_ITS | Encounter Summary ---
Demographics Address [address] [place] [address] Mobile Phone Home Phone Email Address [email or web address] Preferred Language Ugandan Marital Status Church Affiliation Unknown Race White Ethnic Group Unknown Author Organization [facility] Address [address] [place] [address] Support Name Relationship Address Phone [place] Haas Emergency Contact 2 [address] [place] [address] Shana Danielle Emergency Contact [address] [facility] [place] [address] Care Team Providers Care Remanufacturing Technician Name Role Phone Baldo Parmar MD Primary Care Provider Unavaila Ami Anasri-Megan Unavailable Unavailab Elizabet Hawthorne MD Primary Care Provider [phone] Elizabet Hair MD Primary Care Provider [phone] Marybeth Chacon MD Primary Care Provider [phone] Alfreda Costa DO Primary Care Provider [phone] Leela Nieto DIRECTOR BUILDING Unavailable Unavailable Encounter Details Date Type Department Care Team ([facility] Contact Info) Description 10/21/2006 Orders Only [facility] [address] [place] [phone] Baldo Parmar MD Social History Tobacco Use Types Packs/Day Years Used Date Smoking Tobacco: Never Alcohol Use Standard Drinks/Week Comments [...] Upcoming Encounters Date Type Department Care Team ([facility] Contact Info) Description 06/27/2024 11:00 AM EST Office Visit [facility] [address] [place] [phone] Deanne Ibarra PA [address] [place] [address] HFU 08/16/2024 10:25 AM EDT CPE - Comprehensive Physical Exam [facility] [address] [place] [phone] Alfreda Costa DO [address] [place] [address] Physical - LETTER SENT TO [facility]CH[facility] 02/27/2025 1:15 PM EST Radiology [address] [facility] [address] [place] [phone] documented as of this encounter Procedures * Due to [place] [employer] law, this organization might not be sharing negative HIV tests. Procedure Name Priority Date/Time Associated Diagnosis Comments BASIC METABOLIC PANEL Routine 10/21/2006 SCREENING FOR HYPERTENSION CBC 5 PART DIFF Routine 10/21/2006 SCREENING FOR LIPOID DISORDERS ALANINE AMINOTRANSFERASE (ALT), SERUM Routine 10/21/2006 SCREENING FOR LIPOID DISORDERS TSH, THYROTROPIN Routine 10/21/2006 SCREENING FOR LIPOID DISORDERS URINALYSIS, COMPLETE (DIP & MICRO) Routine 10/21/2006 SCREENING FOR LIPOID DISORDERS CARDIAC RISK/LIPID PROFILE I Routine 10/21/2006 SCREENING FOR LIPOID DISORDERS documented in this encounter Results * Due to [place] [employer] law, this organization might not be sharing negative HIV tests. * TSH, THYROTROPIN (10/21/2006) TSH, THYROTROPIN 0.7 0.3 - 5.5 UIU/ML [facility] (CLIA# [id number]) 10/21/2006 10/21/2006 4:4 6 PM EDT Baldo Parmar MD LABORATORY Final Result [facility] (CLIA# [id number]) [address] [place] [address] * URINALYSIS, COMPLETE (DIP & MICRO) (10/21/2006) COLOR (URINE) YELLOW YELLOW [facility] (CLIA# [id number]) APPEARANCE (URINE) CLEAR CLEAR [facility] (CLIA# [id number]) SPECIFIC GRAVITY 1.016 1.001 - 1.035 [facility] (CLIA# [id number]) PH (URINE) 8.0 5.0 - 8.0 [facility] (CLIA# [id number]) PROTEIN (URINE) NEG NEG [facility] (CLIA# [id number]) GLUCOSE (URINE) NEG NEG FC [facility] (CLIA# [id number]) Ketones (Urine) NEG NEG [facility] (CLIA# [id number]) BILIRUBIN (URINE) NEG NEG [facility] (CLIA# [id number]) BLOOD (URINE) NEG NEG [facility] (CLIA# [id number]) WBC (URINE) NEG NEG [facility] (CLIA# [id number]) NITRITE (URINE) NEG NEG [facility] (CLIA# [id number]) WBC (URINE) 0-4 0-4/HPF [facility] (CLIA# [id number]) RBC (Urine Sed) 0 0-3/HPF [facility] (CLIA# [id number]) EPITHELIAL CELLS.SQUAMOUS (URINE SED) 0-5 0-5/HPF [facility] (CLIA# [id number]) EPITHELIAL CELLS.TRANSITIO NAL (URINE SED) 0 0-5/HPF [facility] (CLIA# [id number]) EPITHELIAL CELLS.RENAL (URINE SED) 0 0-3/HPF [facility] (CLIA# [id number]) BACTERIA (URINE) NONE SEEN NONE SEEN [facility] (CLIA# [id number]) 10/21/2006 10/21/2006 4:4 6 PM EDT us Baldo Parmar MD LAB SAME DAY RESULT Final Resul t Performing Organization Address [facility] Co de Phone Number [facility] (CLIA# [id number]) [address] [place] [address] * ALANINE AMINOTRANSFERASE (ALT), SERUM (10/21/2006) ALT (SGPT) 12 6 - 40 U/L [facility] (CLIA# [id number]) 10/21/2006 10/21/2006 4:4 6 PM EDT us Baldo Parmar MD LAB SAME DAY RESULT Final Resul t Performing Organization Address [facility] de Phone Number [facility] (CLIA# [id number]) [address] [place] [address] * CARDIAC RISK/LIPID PROFILE I (10/21/2006) CHOLESTEROL, TOTAL 190 125 - 200 MG/DL [facility] (CLIA# [id number]) TRIGLYCERIDES 88 30 - 149 MG/DL [facility] (CLIA# [id number]) HDL-CHOLESTEROL 63 40 - 77 MG/DL [facility] (CLIA# [id number]) LDL-CHOLESTEROL 109 62 - 130 MG/DL [facility] (CLIA# [id number]) Comment: RISK CATEGORY: ??LDL-CHOLESTEROL GOAL CHD AND CHD RISK EQUIVALENTS: ??<100 MULTIPLE (2+) FACTORS: ??<130 ZERO TO ONE RISK FACTOR: ??<160 CHD RELATIVE RISK RATIO (TOTAL/HDL) 3.02 0.0 - 5.0 [facility] (CLIA# [id number]) Comment:(< .25 X AVERAGE) 10/21/2006 10/21/2006 4:4 6 PM EDT us Baldo Parmar MD LABORATORY Final Result [facility] (CLIA# [id number]) [address] [place] [address] * (ABNORMAL) CBC 5 PART DIFF (10/21/2006) WHITE BLOOD COUNT 7.4 3.8 - 10.8 THOUS/UL [facility] (CLIA# [id number]) RBC 4.63 3.80 - 5.10 MIL/UL [facility] (CLIA# [id number]) Hemoglobin 14.2 11.7 - 15.5 G/DL [facility] (CLIA# [id number]) HCT (HEMATOCRIT) 41 35.0 - 45.0 % [facility] (CLIA# [id number]) MCV 88 80.0 - 100.0 FL [facility] (CLIA# [id number]) MCH 31 27.0 - 33.0 PG [facility] (CLIA# [id number]) MCHC 35 32.0 - 36.0 G/DL [facility] (CLIA# [id number]) BAND % 0 0 - 5 % [facility] (CLIA# [id number]) NEUTROPHIL % 50 48 - 75 % [facility] (CLIA# [id number]) LYMPHOCYTE % 35 17 - 40 % [facility] (CLIA# [id number]) MONOCYTE % 10 0 - 14 % [facility] (CLIA# [id number]) EOSINOPHIL % 4 0 - 5 % [facility] (CLIA# [id number]) BASOPHIL % 1 0 - 3 % [facility] (CLIA# [id number]) ATYPICAL LYMPHOCYTE % 0 0 - 5 % [facility] (CLIA# [id number]) PLATELETS 211 140 - 400 THOUS/UL [facility] (CLIA# [id number]) BANDS # 0 0 - 750 CELLS/MCL [facility] (CLIA# [id number]) NEUTROPHILS # 3700 1500 - 7800 CELLS/MCL [facility] (CLIA# [id number]) LYMPHOCYTES # 2590 850 - 3900 CELLS/MCL [facility] (CLIA# [id number]) MONOCYTES # 740 200 - 950 CELLS/MCL [facility] (CLIA# [id number]) EOSINOPHILS # 296 15 - 550 CELLS/MCL [facility] (CLIA# [id number]) BASOPHILS # 74 0 - 200 CELLS/MCL [facility] (CLIA# [id number]) ATYPICAL LYMPHOCYTES # 0 0 - 200 /UL [facility] (CLIA# [id number]) RDW 15.1(H) 11.0 - 15.0 % [facility] (CLIA# [id number]) MPV 8.3 7.5 - 11.5 FL [facility] (CLIA# [id number]) 10/21/2006 10/21/2006 4:4 6 PM EDT Baldo Parmar MD LAB SAME DAY RESULT Final Resul t [facility] (CLIA# [id number]) [address] [place] [address] * BASIC METABOLIC PANEL (10/21/2006) CALCIUM 9.4 8.6 - 10.2 MG/DL [facility] (CLIA# [id number]) BUN 15 7 - 25 MG/DL [facility] (CLIA# [id number]) CREATININE 0.9 0.5 - 1.2 MG/DL [facility] (CLIA# [id number]) BUN/Creatinine Ratio 17 6 - 25 [facility] (CLIA# [id number]) Glucose 78 65 - 99 MG/DL [facility] (CLIA# [id number]) SODIUM 141 135 - 146 MMOL/L [facility] (CLIA# [id number]) POTASSIUM 4.2 3.5 - 5.3 MMOL/L [facility] (CLIA# [id number]) CHLORIDE 104 98 - 110 MMOL/L [facility] (CLIA# [id number]) CARBON DIOXIDE 27 21 - 33 MMOL/L [facility] (CLIA# [id number]) 10/21/2006 10/21/2006 4:4 6 PM EDT us Baldo Parmar MD LAB SAME DAY RESULT Final Resul t [facility] (CLIA# [id number]) [address] [place] [address] documented in this encounter Visit Diagnoses Diagnosis SCREENING FOR HYPERTENSION Screening for hypertension SCREENING FOR LIPOID DISORDERS Screening for lipoid disorders documented in this encounter Additional Health Concerns Infection Onset Date Last Indicated Resolved Time COVID-19 Rule-Out 01/05/2021 01/05/2021 01/06/2021 11:16 AM EDT documented as of this encounter Care Teams Remanufacturing Technician Relationship Specialty Start Date End Date Baldo Parmar MD PCP - General 05/11/12 12/11/17 Ami Osullivan PA-C PCP - Backup PCP Internal Medicine 06/16/15 11/24/17 Elizabet Hair MD PCP - General Family Medicine 12/12/17 02/14/18 Elizabet Hair MD PCP - General 02/15/18 08/15/18 Marybeth Chacon MD PCP - General Internal Medicine 08/16/18 09/02/19 Alfreda Costa DO [address] [place] [address] PCP - General Internal Medicine 09/03/19 Leela Nieto NP [address] [place] [address] PCP - Backup PCP Internal Medicine 09/03/19 11/17/22 documented as of this encounter
--- OUTSIDE RECORDS SUMMARY | 2024-06-25 19:20 | XMS_ITS | Encounter Summary ---
Demographics Address [address] [place] [address] Mobile Phone Home Phone Email Address Preferred Language Hungarian Marital Status Jehovah'S Witness Affiliation Unknown Race White Ethnic Group Unknown Author Organization [facility] Address [address] [place] [address] Support Name Relationship Address Phone [place] Haas Emergency Contact [address] [place] [address] Shana Danielle Emergency Contact [address] [place] [address] Care Team Providers Care Early Childhood Specialist Name Role Phone Baldo Parmar MD Primary Care Provider Unavaila ble Ami Osullivan-C Unavailable Unavailab Elizabet Hawthorne MD Primary Care Provider [phone] Elizabet Hair MD Primary Care Provider [phone] Marybeth Chacon MD Primary Care Provider [phone] Alfreda Costa DO Primary Care Provider [phone] Leela Nieto ELECTRICAL TRYOUT PERSON Unavailable Unavailable Encounter Details Date Type Department Care Team ([facility] Contact Info) Description 12/02/2015 Orders Only [facility] [address] [place] [id number] Ami Osullivan, PATellyC Social History Tobacco Use Types Packs/Day Years [...] Description 06/27/2024 11:00 AM EST Office Visit [facility] [address] [place] [phone] Deanne Ibarra PA [address] [place] [address] HFU 08/16/2024 10:25 AM EDT CPE - Comprehensive Physical Exam [facility] 4 [place] [phone] Alfreda Costa DO [address] [place] [address] Physical - LETTER SENT TO [facility] 02/27/2025 1:15 PM EST Radiology [facility]. Mammography [address] [place] [address] documented as of this encounter Procedures * Due to [place] [employer] law, this organization might not be sharing negative HIV tests. Procedure Name Priority Date/Time Associated Diagnosis Comments HEMOGLOBIN A1C Routine 12/02/2015 2:27 PM EDT Hyperlipemia ALBUMIN (MICROALBUMIN), RANDOM URINE, WITH CREATININE Routine 12/02/2015 2:27 PM EDT Hyperlipemia LIPID PANEL WITH REFLEX TO DIRECT LDL Routine 12/02/2015 2:27 PM EDT Hyperlipemia BASIC METABOLIC PANEL WITH (GFR) Routine 12/02/2015 2:27 PM EDT Hyperlipemia documented in this encounter Results * Due to [place] [employer] law, this organization might not be sharing negative HIV tests. * BASIC METABOLIC PANEL WITH (GFR) (12/02/2015 2:27 PM EDT) Glucose 96 65 - 99 mg/dL [facility] Comment: {GLUCOSE {[id number]) ? Fasting reference interval Urea Nitrogen Blood (BUN) 13 7 - 25 mg/dL [facility] Comment:{UREA NITROGEN (BUN) {[id number]) Creatinine 0.90 0.50 - 1.05 mg/dL [facility] Comment: {CREATININE {[id number]) For patients >49 years of age, the reference limit for Creatinine is approximately 13% higher for people identified as -Norwegian. GFR 73 > OR = 60 mL/min/1 .73m2 [facility] Comment:{eGFR NON-AFR. AMERI CAN {[id number]) GFR () 85 > OR = 60 mL/min/1 .73m2 [facility] Comment:{eGFR AMERIC AN {[id number]) BUN/Creatinine Ratio NOT APPLICABLE (calc) [facility] Comment:{BUN/CREATININE RATI O {[id number]) Sodium 140 135 - 146 mmol/L [facility] Comment:{SODIUM {[id number]) Potassium 4.4 3.5 - 5.3 mmol/L [facility] Comment:{POTASSIUM {[id number]) Chloride 104 98 - 110 mmol/L [facility] Comment:{CHLORIDE {[id number]) Carbon dioxide 28 20 - 31 mmol/L [facility] Comment:{CARBON DIOXIDE {[id number]) Calcium 9.2 8.6 - 10.4 mg/dL [facility] Comment:{CALCIUM {[id number]) 12/02/2015 2:27 PM EDT 12/02/2015 8:09 PM EDT Narrative [facility] - 12/02/2015 10:18 PM EDT Please note that this estimated GFR [...] needs for GFR calculation. Resulting Agency Comment [id number] Ami Osullivan PA-C LABORATORY Final Resu lt [facility] [address] [place] [address] * ALBUMIN (MICROALBUMIN), RANDOM URINE, WITH CREATININE (12/02/2015 2:27 PM EDT) Creatinine (Urine) 169 20 - 320 mg/dL [facility] Comment:{CREATININE, RANDOM URINE {[id number]) Albumin (Urine) 0.3 mg/dL [facility] Comment: {MICROALBUMIN {[id number]) Reference Range Not established Albumin/Creatinine (Urine) 2 <30 mcg/mg creat [facility] Comment: {MICROALBUMIN/CREATININE RATIO, RANDOM URINE {[id number]) The ADA defines abnormalities in albumin excretion as follows: Category ? Result (mcg/mg creatinine) Normal ?<30 Microalbuminuria ? 30-299 Clinical albuminuria ?? > OR = 300 The ADA recommends that at least two of three specimens collected within a 3-6 month period be abnormal before considering a patient to be within a diagnostic category. 12/02/2015 2:27 PM EDT 12/02/2015 8:09 PM EDT Narrative Resulting Agency Comment [id number] Ami Osullivan PA-C LABORATORY Final Resu lt [facility] [address] [place] [address] * (ABNORMAL) LIPID PANEL WITH REFLEX TO DIRECT LDL (12/02/2015 2:27 PM EDT) Cholesterol 239(H) 125 - 200 mg/dL [facility] Comment:{CHOLESTEROL, TOTAL {[id number]) HDL Cholesterol 88 > OR = 46 mg/dL [facility] Comment:{HDL CHOLESTEROL {[id number]) Triglyceride 110 <150 mg/dL [facility] Comment:{TRIGLYCERIDES {[id number]) LDL Cholesterol 129 <130 mg/dL (calc) [facility] Comment: {LDL-CHOLESTEROL {[id number]) Desirable range <100 mg/dL for patients with CHD or diabetes and <70 mg/dL for diabetic patients with known heart disease. CHOL/HDL Ratio 2.7 < OR = 5.0 (calc) [facility] Comment:{CHOL/HDLC RATIO {[id number]) Cholesterol Non-HDL 151 mg/dL (calc) [facility] Comment: {NON HDL CHOLESTEROL {[id number]) Target for non-HDL cholesterol is 30 mg/dL higher than LDL cholesterol target. 12/02/2015 2:27 PM EDT 12/02/2015 8:09 PM EDT Narrative Resulting Agency Comment [id number] Ami Osullivan PA-C LABORATORY Final Resu lt [facility] [address] [place] [address] * (ABNORMAL) HEMOGLOBIN A1C (12/02/2015 2:27 PM EDT) Hemoglobin A1C 6.0(H) <5.7 % of total Hgb [facility] Comment: {HEMOGLOBIN A1c {[id number]) According to ADA guidelines, hemoglobin A1c <7.0% represents optimal control in non- diabetic patients. Different metrics may apply to specific patient populations. Standards of Medical Care in Diabetes-2013. Diabetes Care. 2013;36:s11-s66 For the purpose of screening for the presence of diabetes <5.7% ? Consistent with the absence of diabetes 5.7-6.4% ?Consistent with increased risk for diabetes ?(prediabetes) >or=6.5% ?Consistent with diabetes This assay result is consistent with an increased risk of diabetes. Currently, no consensus exists for use of hemoglobin A1c for diagnosis of diabetes for children. Estimated Average Glucose 136 mg/dL (calc) [facility] Comment:{MEAN PLASMA GLUCOSE {[id number]) 12/02/2015 2:27 PM EDT 12/02/2015 8:09 PM EDT Narrative Resulting Agency Comment [id number] Ami Osullivan PA-C LABORATORY Final Resu lt [facility] [address] [place] [address] documented in this encounter Visit Diagnoses Diagnosis Hyperlipemia- Primary Other and unspecified hyperlipidemia documented in this encounter Additional Health Concerns Infection Onset Date Last Indicated Resolved Time COVID-19 Rule-Out 01/05/2021 01/05/2021 01/06/2021 11:16 AM EDT documented as of this encounter Care Teams Early Childhood Specialist Relationship Specialty Start Date End Date Baldo Parmar MD PCP - General 05/11/12 12/11/17 Ami Osullivan PA-C PCP - Backup PCP Internal Medicine 06/16/15 11/24/17 Elizabet Hair MD PCP - General Family Medicine 12/12/17 02/14/18 Elizabet Hair MD PCP - General 02/15/18 08/15/18 Marybeth Chacon MD PCP - General Internal Medicine 08/16/18 09/02/19 Alfreda Costa DO [address] [place] [address] PCP - General Internal Medicine 09/03/19 Leela Nieto NP [address] [place] [address] PCP - Backup PCP Internal Medicine 09/03/19 11/17/22 documented as of this encounter
--- OUTSIDE RECORDS SUMMARY | 2024-06-25 19:20 | XMS_ITS | Encounter Summary ---
Demographics Address [address] [place] [address] Mobile Phone Home Phone Email Address Preferred Language Bruneian Marital Status Sabianism Affiliation Unknown Race White Ethnic Group Unknown Author Organization [facility] Address [address] [place] [address] Support Name Relationship Address Phone [place] Paz Germain Emergency Contact [address] [place] [address] Shana Danielle Emergency Contact [address] [place] [address] Care Team Providers Care Fitting Room Inspector Name Role Phone Baldo Parmar MD Primary Care Provider Unavaila Ami Ansari-Megan Unavailable Unavailab Elizabet Hawthorne MD Primary Care Provider [phone] Elizabet Hair MD Primary Care Provider [phone] Marybeth Chacon MD Primary Care Provider [phone] Alfreda Costa DO Primary Care Provider [phone] Leela Nieto RV TECHNICIAN Unavailable Unavailable Encounter Details Date Type Department Care Team (Late st Contact Info) Description 10/10/2015 Telephone [facility] Magnetic Resonance Imaging [address] [place] [address] Houston Conti MD [address] [place] [address] Social History Tobacco Use Types Packs/Day Years [...] Description 06/27/2024 11:00 AM EST Office Visit [facility] [address] [place] [address] Deanne Ibarra PA [address] [place] [address] HFU 08/16/2024 10:25 AM EDT CPE - Comprehensive Physical Exam [facility] [address] [place] [phone] Alfreda Costa DO [address] [place] [address] Physical - LETTER SENT TO [facility] 02/27/2025 1:15 PM EST Radiology [facility]. Mammography [address] [place] [address] documented as of this encounter Visit Diagnoses Not on filedocumented in this encounter Additional Health Concerns Infection Onset Date Last Indicated Resolved Time COVID-19 Rule-Out 01/05/2021 01/05/2021 01/06/2021 11:16 AM EDT documented as of this encounter Care Teams Fitting Room Inspector Relationship Specialty Start Date End Date Baldo Parmar MD PCP - General 05/11/12 12/11/17 Ami Osullivan PA-C PCP - Backup PCP Internal Medicine 06/16/15 11/24/17 Elizabet Hair MD PCP - General Family Medicine 12/12/17 02/14/18 Elizabet Hair MD PCP - General 02/15/18 08/15/18 Marybeth Chacon MD PCP - General Internal Medicine 08/16/18 09/02/19 Alfreda Costa DO [address] [place] [address] PCP - General Internal Medicine 09/03/19 Leela Nieto NP [address] [place] [address] PCP - Backup PCP Internal Medicine 09/03/19 11/17/22 documented as of this encounter
--- OUTSIDE RECORDS SUMMARY | 2024-06-25 19:20 | XMS_ITS | Encounter Summary ---
Demographics Address [address] [place] [place] [address] Mobile Phone Home Phone Preferred Language New Zealander Marital Status Buddhism Affiliation Unknown Race White Ethnic Group Not or Lati no Author Organization [facility] Address [address] [place] [address] Care Team Providers Care Refund Specialist Name Role Phone Alfreda Costa Jose Primary Care Provider [phone] Reason for Referral * MRI/CAT/PET Scan (Emergency) - Authorized Specialty Diagnoses / Procedures Referred By Contac t Referred To Contact Radiology Diagnoses Osteomyelitis of pelvis (CMS/HCC) (HCC) Streptococcal bacteremia Pelvic abscess in female Procedures CT Abdomen Pelvis with Contrast CT Abdomen Pelvis with Contrast Roslyn Quarles MD [address] [place] [address] Phone: tel: fax: Referral ID Status Reason Start Date Expiration Date V isits Requested Visits Authorized [id number] Authorized 06/25/2024 07/24/2024 1 1 Reason for Visit * Reason Comments General ID Encounter Details Date Type Department Care Team (Late st Contact Info) Description 06/20/2024 9:30 AM EST Follow-Up [facility] [address] [place] [address] Compliance Coordinator: Herman Michael MD [address] [place] [address] [address] [address] Osteomyelitis of pelvis (CMS/HCC) (HCC) (Primary Dx); Streptococcal bacteremia; Pelvic abscess in female; Antibiotic long-term use Social History Tobacco Use Types Packs/Day Years Used Date Smoking Tobacco: Never Smokeless Tobacco: Never Alcohol Use Standard Drinks/Week Comments Never 0 (1 standard drink = 0.6 oz pur e alcohol) Comments Unknown Sex and Gender Information Value Date Recorded Sex Assigned at Female 06/01/2024 11:00 AM EST Legal Sex Female 1:26 AM EDT Gender Identity Not on file Sexual Orientation Not on file documented as of this encounter Last Filed Vital Signs Vital Sign Reading Time Taken Comments Blood Pressure 101/63 06/20/2024 9:52 AM EST Pulse 82 06/20/2024 9:52 AM EST Temperature 36.6 ??C (97.8 ??F) 06/20/2024 9:52 AM ES T Respiratory Rate 18 06/20/2024 9:52 AM EST Oxygen Saturation 100% 06/20/2024 9:52 AM EST Inhaled Oxygen Concentration - - Weight 66.8 kg (147 lb 3.2 oz) 06/20/2024 9:52 A M EST Height - - Body Mass Index 24.89 06/05/2024 6:43 AM EST documented in this encounter Progress Notes * Roslyn Quarles MD - 06/24/2024 11:21 AM EST I saw and evaluated the patient. Case discussed with the resident/fellow and I agree with the findings and plan as documented in the resident's/fellow's note. * Herman Sutherland MD - 06/23/2024 11:06 PM EST Images from the original note were not included. Infectious Diseases Progress Note Reason for Follow-up: [...] 2 times a day. 06/13/20 Yes Unknown Provider, metroNIDAZOLE (FLAGYL) 500 mg tablet Take 1 [...] depressive disorder, memory loss, recent hospitalization at [facility] for strep intermedius associated pelvic abscess s/p drainage and 05/29 and a newly diagnosed DVT with pulmonary embolism for which she was started on anticoagulation. She was admitted at [facility] because of hematuria stop she has [...] intermedius bacteremia --gluteal abscess s/p drainage at [facility] on 05/[address] scan on 06/01 showing residual collection; MAXIMO negative for any vegetations at [facility] # DVT with pulmonary embolism with [...] Infectious Diseases Dorothy Vázquez : 1960 CSN: [id number] documented in this encounter Plan of Treatment Upcoming Encounters Date Type Department Care Team (Late st Contact Info) Description 07/11/2024 9:00 AM EDT Follow-Up [facility] [address] [place] [address] Compliance Coordinator: Herman Michael MD [address] [place] [address] [address] [place] [address] Scheduled Orders Name Type Priority Associated Diagnoses Orde r Schedule CT Abdomen Pelvis with Contrast Imaging STAT Osteomyelitis of pelvis (CMS/HCC) (HCC) Streptococcal bacteremia Pelvic abscess in female Expected: 06/23/2024, Expires: 08/23/2025 documented as of this encounter Visit Diagnoses Diagnosis Osteomyelitis of pelvis (CMS/HCC) (HCC)- Primary Streptococcal bacteremia Pelvic abscess in female Antibiotic long-term use Encounter for long-term (current) use of antibiotics documented in this encounter Care Teams Refund Specialist Relationship Specialty Start Date End Date Alfreda Costa [address] [place] [address] PCP - General Internal Medicine 06/01/24 documented as of this encounter
--- OUTSIDE RECORDS SUMMARY | 2024-06-25 19:20 | XMS_ITS | Encounter Summary ---
Demographics Address [address] [place] [address] Mobile Phone Home Phone Email Address Preferred Language Uzbek Marital Status Yarsani Affiliation Unknown Race White Ethnic Group Unknown Author Organization [facility] Address [address] [place] [address] Support Name Relationship Address Phone [place] Haas Emergency Contact [address] [place] [address] Shana Danielle Emergency Contact [address] [place] [address] Care Team Providers Care Business Liaison Officer Name Role Phone Marybeth Chacon MD Primary Care Provider Alfreda Costa DO Primary Care Provider [phone] Leela Nieto MOTION GRAPHICS ARTIST Unavailable Unavailable Reason for Visit * Reason Comments Labs/orders Encounter Details Date Type Department Care Team (Late st Contact Info) Description 05/10/2019 Telephone [facility] [address] [place] [address] Marybeth Chacon MD [address] [place] [address] Labs/orders Social History Tobacco Use Types Packs/Day Years [...] encounter Miscellaneous Notes * Telephone Encounter - Staci De Los Santos - 05/10/2019 10:33 AM EST Psych asking to have TSH drawn Psych may need to switch meds but asking for TSH first Due to side effects, She has had weight gain, no explanation why. phych wants to R/O thyroid before changing as meds areworking well for her Med, Quetiapine TSH ordered FYI to PCP * Telephone Encounter - Val Veronica - 05/10/2019 10:31 AM EST Pt calling to discuss 30 day holter monitor order and discuss getting TSH checked documented in this encounter Plan of Treatment Upcoming Encounters Date Type Department Care Team (Late st Contact Info) Description 06/27/2024 11:00 AM EST Office Visit [facility] [address] [place] [address] Deanne Ibarra PA [address] [place] [address] HFU 08/16/2024 10:25 AM EDT CPE - Comprehensive Physical Exam [facility] [address] [place] [address] Alfreda Costa DO [address] [place] [address] Physical - [facility] 02/27/2025 1:15 PM EST Radiology [facility] [facility] Mammography [address] [place] [address] documented as of this encounter Results * Due to [place] state law, this organization might not be sharing negative HIV tests. * THYROID STIMULATING HORMONE (TSH) WITH FREE T4 REFLEX, SERUM (10/16/2019 3:58 PM EDT) TSH 0.49 0.40 - 4.50 mIU/L [facility] 10/16/2019 3:58 PM EDT 10/16/2019 11:00 PM EDT Narrative Resulting Agency Comment [id number] Marybeth Chacon MD LABORATORY Final Result [facility] [address] [place] [address] documented in this encounter Visit Diagnoses Diagnosis Weight gain Abnormal weight gain documented in this encounter Additional Health Concerns Infection Onset Date Last Indicated Resolved Time COVID-19 Rule-Out 01/05/2021 01/05/2021 01/06/2021 11:16 AM EDT documented as of this encounter Care Teams Business Liaison Officer Relationship Specialty Start Date End Date Marybeth Chacon MD PCP - General Internal Medicine 08/16/18 09/02/19 Alfreda Costa DO [address] [facility] [place] [address] PCP - General Internal Medicine 09/03/19 Leela Nieto NP 4 [place] [address] PCP - Backup PCP Internal Medicine 09/03/19 11/17/22 documented as of this encounter
--- OUTSIDE RECORDS SUMMARY | 2024-06-25 19:20 | XMS_ITS | Encounter Summary ---
Demographics Address [address] [place] [address] Mobile Phone Home Phone Email Address [email or web address] Preferred Language Peruvian Marital Status Cheondoism Affiliation Unknown Race White Ethnic Group Unknown Author Organization [facility] Address [address] [place] [address] Support Name Relationship Address Phone [place] Haas Emergency Contact 2 [address] [place] [address] Shana Danielle Emergency Contact [address] [place] [address] Care Team Providers Care Chief Lending Officer Name Role Phone Baldo Parmar MD Primary Care Provider Unavaila Ami Ansari-Megan Unavailable Unavailab Elizabet Hawthorne MD Primary Care Provider [phone] Elizabet Hair MD Primary Care Provider [phone] Marybeth Chacon MD Primary Care Provider [phone] Alfreda Costa DO Primary Care Provider [phone] Leela Nieto LOBBYIST Unavailable Unavailable Encounter Details Date Type Department Care Team (Late st Contact Info) Description 05/05/2017 Orders Only [facility] Pre-Admission Testing [address] [facility] [address] [place] [address] Sulema Garcia MD 4 [place] [address] Social History Tobacco Use Types Packs/Day Years [...] Description 06/27/2024 11:00 AM EST Office Visit [facility] [address] [place] [address] Deanne Ibarra PA 4 [place] [address] HFU 08/16/2024 10:25 AM EDT CPE - Comprehensive Physical Exam [facility] [address] [place] [phone] Alfreda Costa DO 4 [place] [address] Physical - LETTER SENT TO [facility] 02/27/2025 1:15 PM EST Radiology [address] Mammography 5 [place] [address] documented as of this encounter Procedures * Due to [place] state law, this organization might not be sharing negative HIV tests. Procedure Name Priority Date/Time Associated Diagnosis Comments MRSA CULTURE SCREEN, NASAL ONLY Routine 05/05/2017 4:05 PM EST Preoperative examination Radiculopathy, unspecified spinal region Esophageal reflux MOOD DISORDER xx0.33xx Mixed hyperlipidemia Migraine without aura and without status migrainosus, not intractable EKG-TO BE READ & BILLED BY ADULT OR PEDIATRIC CARDIOLOGY Routine 05/05/2017 3:19 PM EST Preoperative examination Radiculopathy, unspecified spinal region Esophageal reflux MOOD DISORDER xx0.33xx Mixed hyperlipidemia Migraine without aura and without status migrainosus, not intractable PROTHROMBIN TIME (PT) (INR), BLOOD Routine 05/05/2017 3:02 PM EST Preoperative examination Radiculopathy, unspecified spinal region Esophageal reflux MOOD DISORDER xx0.33xx Mixed hyperlipidemia Migraine without aura and without status migrainosus, not intractable documented in this encounter Results * Due to [place] state law, this organization might not be sharing negative HIV tests. * MRSA CULTURE SCREEN, NASAL ONLY (05/05/2017 4:05 PM EST) Methicillin Resistant Staphylococcus Aureus Screen SEE NOTE [facility] Comment: ??MRSA CULTURE SCREEN ??MICRO NUMBER: ?[id number] ??TEST STATUS: ? FINAL ??SPECIMEN SOURCE: ?? NOT GIVEN ??SPECIMEN QUALITY: ??ADEQUATE ??RESULT: ?No methicillin resistant Staphylococcus aureus ? (MRSA) isolated. 05/05/2017 4:05 PM EST 05/05/2017 10:25 PM EST Narrative Resulting Agency Comment [id number] Sulema Garcia MD LABORATORY Final Result Performing Organization Address [facility]/ZIP Co de Phone Number [facility] [address] [place] [address] * EKG-TO BE READ AND BILLED BY CARDIOLOGY (05/05/2017 3:19 PM EST) VENTRICULAR RATE 83 BPM MUS E EKG SYSTEM ATRIAL RATE 83 BPM MUSE EKG SYSTEM P-R INTERVAL 142 ms MUSE EK G SYSTEM QRS DURATION 78 ms MUSE EK G SYSTEM QT 372 ms MUSE EKG SYSTEM QTC 437 ms MUSE EKG SYSTEM P AXIS 58 degrees MUSE EKG SYSTEM R AXIS 60 degrees MUSE EKG SYSTEM T AXIS 61 degrees MUSE EKG SYSTEM EKG INTERPRETATION Normal sinus rhythm Normal ECG When compared with ECG of 14-APR-2010 15:03, No significant change was found MUSE EKG SYSTEM 05/05/2017 3:19 PM EST 05/07/2017 4:05 AM EST Sulema Garcia MD CARDIOVASCULAR-WITH INBSKT RTG E dited Result - Final Performing Organization Address [facility]/ZIP Co de Phone Number MUSE EKG SYSTEM * PROTHROMBIN TIME (PT) (INR), BLOOD (05/05/2017 3:02 PM EST) INR 1.0 [facility] Comment: Reference Range ? 0.9-1.1 Moderate-intensity Warfarin Therapy 2.0-3.0 Higher-intensity Warfarin Therapy ?? 3.0-4.0 PT 10.0 9.0 - 11.5 sec [facility] Comment: For more information on this test, go to: http://education.Harry [employer] David/faq/CXT939 05/05/2017 3:02 PM EST 05/05/2017 8:53 PM EST us Sulema Garcia MD LAB SAME DAY RESULT Final Result Performing Organization Address City/State/[facility] Co de Phone Number [facility] [address] [place] [address] documented in this encounter Visit Diagnoses Diagnosis Preoperative examination Preoperative examination, unspecified Radiculopathy, unspecified spinal region Esophageal reflux MOOD DISORDER xx0.33xx Mixed hyperlipidemia Migraine without aura and without status migrainosus, not intractable Migraine without aura, without mention of intractable migraine without mention of status migrainosus documented in this encounter Additional Health Concerns Infection Onset Date Last Indicated Resolved Time COVID-19 Rule-Out 01/05/2021 01/05/2021 01/06/2021 11:16 AM EDT documented as of this encounter Care Teams Chief Lending Officer Relationship Specialty Start Date End Date Baldo Parmar MD PCP - General 05/11/12 12/11/17 Ami Osullivan, PATellyC PCP - Backup PCP Internal Medicine 06/16/15 11/24/17 Elizabet Hair MD PCP - General Family Medicine 12/12/17 02/14/18 Elizabet Hair MD PCP - General 02/15/18 08/15/18 Marybeth Chacon MD PCP - General Internal Medicine 08/16/18 09/02/19 Alfreda Costa DO [address] [place] [address] PCP - General Internal Medicine 09/03/19 Leela Nieto NP [address] [place] [address] PCP - Backup PCP Internal Medicine 09/03/19 11/17/22 documented as of this encounter
--- OUTSIDE RECORDS SUMMARY | 2024-06-25 19:20 | XMS_ITS | Encounter Summary ---
Demographics Address [address] [place] [address] Mobile Phone Home Phone Email Address Preferred Language Hungarian Marital Status Methodist Affiliation Unknown Race White Ethnic Group Unknown Author Organization [facility] Address [address] [place] [address] Support Name Relationship Address Phone [place] Haas Emergency Contact [address] [place] [address] Shana Danielle Emergency Contact [address] [place] [address] Care Team Providers Care Special Police Officer Name Role Phone Baldo Parmar MD Primary Care Provider Unavaila ble Ami Osullivan-C Unavailable Unavailab Elizabet Hawthorne MD Primary Care Provider [phone] Elizabet Hair MD Primary Care Provider [phone] Marybeth Chacon MD Primary Care Provider Alfreda Costa DO Primary Care Provider [phone] Leela Nieot PROGRAMMER BUSINESS Unavailable Unavailable Encounter Details Date Type Department Care Team (Late st Contact Info) Description 10/16/2013 Orders Only [facility] [address] [place] [phone] Ami Osullivan, PA-C Social History Tobacco Use [...] as of this encounter Progress Notes * Trice Perez - 10/25/2013 8:48 AM EDTQuick Note: Letter Sent * Maria Eugenia Lyons - 10/25/2013 8:17 AM EDTQuick Note: Send normal stable * Baldo Parmar - 10/25/2013 8:09 AM EDTQuick Note: The results of this test are normal/ stable and/or acceptable notify patient - there is no need to make any changes in approach - as always if the patient has any questions/problems please let me know - documented in this encounter Plan of Treatment Upcoming Encounters Date Type Department Care Team (Late st Contact Info) Description 06/27/2024 11:00 AM EST Office Visit [facility] 4 [place] [address] Deanne Ibarra PA 4 [place] [address] HFU 08/16/2024 10:25 AM EDT CPE - Comprehensive Physical Exam [facility] [address] [place] [address] Alfreda Costa DO 4 [place] [address] Physical - [facility] 02/27/2025 1:15 PM EST Radiology [address] Mammography [address] [place] [address] documented as of this encounter Procedures * Due to [place] state law, this organization might not be sharing negative HIV tests. Procedure Name Priority Date/Time Associated Diagnosis Comments CBC INCLUDES DIFFERENTIAL AND PLATELET COUNT Routine 10/16/2013 8:53 AM EDT Screening for other disorders of blood and blood-forming organs LIPID PANEL WITH REFLEX TO DIRECT LDL Routine 10/16/2013 8:53 AM EDT Lipid screening documented in this encounter Results * Due to [place] state law, this organization might not be sharing negative HIV tests. * (ABNORMAL) LIPID PANEL WITH REFLEX TO DIRECT LDL (10/16/2013 8:53 AM EDT) Cholesterol 213(H) 125 - 200 mg/dL [facility] Comment:{CHOLESTEROL, TOTAL {[id number]) HDL Cholesterol 57 > OR = 46 mg/dL [facility] Comment:{HDL CHOLESTEROL {[id number]) Triglyceride 192(H) <150 mg/dL [facility] Comment:{TRIGLYCERIDES {[id number]) LDL Cholesterol 118 <130 mg/dL (calc) [facility] Comment: {LDL-CHOLESTEROL {[id number]) Desirable range <100 mg/dL for patients with CHD or diabetes and <70 mg/dL for diabetic patients with known heart disease. CHOL/HDL Ratio 3.7 < OR = 5.0 (calc) [facility] Comment:{CHOL/HDLC RATIO {[id number]) Cholesterol Non-HDL 156 mg/dL (calc) [facility] Comment: {NON HDL CHOLESTEROL {[id number]) Target for non-HDL cholesterol is 30 mg/dL higher than LDL cholesterol target. 10/16/2013 8:53 AM EDT 10/16/2013 5:55 PM EDT Narrative Resulting Agency Comment [id number] Ami Osullivan PA-C LABORATORY Final Resu lt [facility] [address] [place] [address] * CBC INCLUDES DIFFERENTIAL AND PLATELET COUNT (10/16/2013 8:53 AM EDT) WBC 6.3 3.8 - 10.8 Thousand/u L [facility] Comment:{WHITE BLOOD CELL CO UNT {[id number]) RBC 4.21 3.80 - 5.10 Million/uL [facility] Comment:{RED BLOOD CELL COUN T {[id number]) Hemoglobin 12.2 11.7 - 15.5 g/dL [facility] Comment:{HEMOGLOBIN {[id number]) Hematocrit 36.2 35.0 - 45.0 % [facility] Comment:{HEMATOCRIT {[id number]) MCV 86.1 80.0 - 100.0 fL [facility] Comment:{MCV {[id number]) MCH 28.9 27.0 - 33.0 pg [facility] Comment:{MCH {[id number]) MCHC 33.6 32.0 - 36.0 g/dL [facility] Comment:{MCHC {[id number]) RDW 13.3 11.0 - 15.0 % [facility] Comment:{RDW {[id number]) PLT 212 140 - 400 Thousand/u L [facility] Comment:{PLATELET COUNT {[id number]) MPV 9.0 7.5 - 11.5 fL [facility] Comment:{MPV {[id number]) Neutrophils # 2785 1500 - 7800 cells/uL [facility] Comment:{ABSOLUTE NEUTROPHIL S {[id number]) Lymphocytes # 2898 850 - 3900 cells/uL [facility] Comment:{ABSOLUTE LYMPHOCYTE S {[id number]) Monocytes # 504 200 - 950 cells/uL [facility] Comment:{ABSOLUTE MONOCYTES {[id number]) Eosinophils # 88 15 - 500 cells/uL [facility] Comment:{ABSOLUTE EOSINOPHIL S {[id number]) Basophils # 25 0 - 200 cells/uL [facility] Comment:{ABSOLUTE BASOPHILS {[id number]) Neutrophils % 44.2 % [facility] Comment:{NEUTROPHILS {[id number]) Lymphocytes % 46.0 % [facility] Comment:{LYMPHOCYTES {[id number]) Monocytes % 8.0 % [facility] Comment:{MONOCYTES {[id number]) Eosinophils % 1.4 % [facility] Comment:{EOSINOPHILS {[id number]) Basophils % 0.4 % [facility] Comment:{BASOPHILS {[id number]) 10/16/2013 8:53 AM EDT 10/16/2013 5:55 PM EDT Narrative Resulting Agency Comment [id number] Ami Osullivan PA-C LAB SAME DAY RESULT Final Result [facility] [address] [place] [address] documented in this encounter Visit Diagnoses Diagnosis Screening for other disorders of blood and blood-forming organs- Primary Lipid screening Screening for lipoid disorders Screen for colon cancer Special screening for malignant neoplasms, colon documented in this encounter Additional Health Concerns Infection Onset Date Last Indicated Resolved Time COVID-19 Rule-Out 01/05/2021 01/05/2021 01/06/2021 11:16 AM EDT documented as of this encounter Care Teams Special Police Officer Relationship Specialty Start Date End Date Baldo Parmar MD PCP - General 05/11/12 12/11/17 Ami Osullivan PA-C PCP - Backup PCP Internal Medicine 06/16/15 11/24/17 Elizabet Hair MD PCP - General Family Medicine 12/12/17 02/14/18 Elizabet Hair MD PCP - General 02/15/18 08/15/18 Marybeth Chacon MD PCP - General Internal Medicine 08/16/18 09/02/19 Alfreda Costa DO [address] [place], [place] [address] [address] PCP - General Internal Medicine 09/03/19 Leela Nieto NP [address] [place] [address] PCP - Backup PCP Internal Medicine 09/03/19 11/17/22 documented as of this encounter
--- OUTSIDE RECORDS SUMMARY | 2024-06-25 19:20 | XMS_ITS | Encounter Summary ---
Demographics Address [address] [place] [address] Mobile Phone Home Phone Email Address [email or web address] Preferred Language Spanish Marital Status Bahai Affiliation Unknown Race White Ethnic Group Unknown Author Organization [facility] Address [address] [place] [address] Support Name Relationship Address Phone [place] Zambrano [facility] Emergency Contact [address] [place] [address] Shana Danielle Emergency Contact [address] [place] [address] Care Team Providers Care Archival Records Clerk Name Role Phone Baldo Parmar MD Primary Care Provider Unavaila Ami Ansari-Megan Unavailable Unavailab Elizabet Hawthorne MD Primary Care Provider [phone] Elizabet Hair MD Primary Care Provider [phone] Marybeth Chacon MD Primary Care Provider [phone] Alfreda Costa DO Primary Care Provider [phone] Leela Nieto SENIOR QUALITY CONTROL TECHNICIAN Unavailable Unavailable Reason for Visit * Reason Comments Letter/form Request Encounter Details Date Type Department Care Team ([facility] st Contact Info) Description 06/10/2017 Telephone [facility] Orthopedic Surgery [address] [address] [place] Conti MD [address] [place] [address] Letter/form Request Social History Tobacco Use Types Packs/Day [...] encounter Miscellaneous Notes * Telephone Encounter - Jeffery Duffy - 06/13/2017 12:22 PM EST Called and left a message stating that if she needs an appointment, to call and have the follow up scheduled. * Telephone Encounter - Karen Crawley - 06/10/2017 4:07 PM EST Patient calling to schedule a f/u with Dr. Conti after her MRI on 06/17. Patient advised Dr. Conti is booking out until July. Please advise on sooner date and time. 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 Pt is seeing Dr Conti for F/up for Spinal Chord Stimulator. Please fax this letter to: [phone], make sure to inculde Bad number #[phone]. Please call Patient to confirm when faxed. documented in this encounter Plan of Treatment Upcoming Encounters Date Type Department Care Team (Late st Contact Info) Description 06/27/2024 11:00 AM EST Office Visit [facility] [address] [place] [address] [place] [address] Deanne Ibarra PA 4 [facility] [place] [address] U 08/16/2024 10:25 AM EDT CPE - Comprehensive Physical Exam [facility] 4 [place] [address] Alfreda Costa DO [address] [place] [address] Physical - LETTER SENT TO [facility] 02/27/2025 1:15 PM EST Radiology [address] [facility] Mammography [address] [place] [address] documented as of this encounter Visit Diagnoses Not on filedocumented in this encounter Additional Health Concerns Infection Onset Date Last Indicated Resolved Time COVID-19 Rule-Out 01/05/2021 01/05/2021 01/06/2021 11:16 AM EDT documented as of this encounter Care Teams Archival Records Clerk Relationship Specialty Start Date End Date Baldo Parmar MD PCP - General 05/11/12 12/11/17 Ami Osullivan, LAURITAC PCP - Backup PCP Internal Medicine 06/16/15 11/24/17 Elizabet Hair MD PCP - General Family Medicine 12/12/17 02/14/18 Elizabet Hair MD PCP - General 02/15/18 08/15/18 Marybeth Chacon MD PCP - General Internal Medicine 08/16/18 09/02/19 Alfreda Costa DO [address] [place] [address] PCP - General Internal Medicine 09/03/19 Leela Nieto NP [address] [place] [address] PCP - Backup PCP Internal Medicine 09/03/19 11/17/22 documented as of this encounter
--- OUTSIDE RECORDS SUMMARY | 2024-06-25 19:20 | XMS_ITS | Encounter Summary ---
Demographics Address [address] [place] [address] Mobile Phone Home Phone Email Address Preferred Language Eritrean Marital Status Faith Affiliation Unknown Race White Ethnic Group Unknown Author Organization [facility] Address [address] [place] [address] Support Name Relationship Address Phone [place] Haas Emergency Contact [address] [place] [address] Sahna Danielle Emergency Contact [address] [facility] [place] [address] Care Team Providers Care Individualized Education Plan Aide Name Role Phone Baldo Parmar MD Primary Care Provider Unavaila Ami Ansari-Megan Unavailable Unavailab Elizabet Hawthorne MD Primary Care Provider [phone] Elizabet Hair MD Primary Care Provider [phone] Marybeth Chacon MD Primary Care Provider [phone] Alfreda Costa DO Primary Care Provider [phone] Leela Nieto GROUP SALES MANAGER Unavailable Unavailable Encounter Details Date Type Department Care Team (Late st Contact Info) Description 06/30/2016 Orders Only [facility] [address] [place] [address] Sharona Workman NP Social History Tobacco Use Types Packs/Day [...] as of this encounter Progress Notes * Roxana Fowler MA - 07/02/2016 7:18 AM EST Letter sent * Sharona Workman NP - 07/01/2016 11:33 AM EST Please send letter that A1C improved from 7 mos ago; has gone down to 5.9. Would recommend monitoring in 1 year documented in this encounter Plan of Treatment Upcoming Encounters Date Type Department Care Team (Late st Contact Info) Description 06/27/2024 11:00 AM EST Office Visit [facility] [address] [place] [address] Deanne Ibarra PA [address] [place] [address] HFU 08/16/2024 10:25 AM EDT CPE - Comprehensive Physical Exam [facility] [address] [place] [address] Alfreda Costa DO [address] [place] [address] Physical - [facility] SENT TO [facility] 02/27/2025 1:15 PM EST Radiology [facility] Mammography [address] [place] [address] documented as of this encounter Procedures * Due to [place] [employer] law, this organization might not be sharing negative HIV tests. Procedure Name Priority Date/Time Associated Diagnosis Comments HEMOGLOBIN A1C Routine 06/30/2016 2:56 PM EST Blood glucose abnormal Urinary frequency documented in this encounter Results * Due to [place] [employer] law, this organization might not be sharing negative HIV tests. * (ABNORMAL) HEMOGLOBIN A1C (06/30/2016 2:56 PM EST) Hemoglobin A1C 5.9(H) <5.7 % of total Hgb [facility] Comment: According to ADA guidelines, hemoglobin A1c <7.0% [...] of diabetes for children. Estimated Average Glucose 133 mg/dL (calc) [facility] 06/30/2016 2:56 PM EST 06/30/2016 9:31 PM EST Narrative Resulting Agency Comment [id number] Sharona Workman NP LABORATORY Final Result Performing Organization Address City/State/[facility] Co de Phone Number [facility] [address] [place] [address] documented in this encounter Visit Diagnoses Diagnosis Blood glucose abnormal Other abnormal glucose Urinary frequency documented in this encounter Additional Health Concerns Infection Onset Date Last Indicated Resolved Time COVID-19 Rule-Out 01/05/2021 01/05/2021 01/06/2021 11:16 AM EDT documented as of this encounter Care Teams Individualized Education Plan Aide Relationship Specialty Start Date End Date Baldo Parmar MD PCP - General 05/11/12 12/11/17 Ami Osullivan PA-C PCP - Backup PCP Internal Medicine 06/16/15 11/24/17 Elizabet Hair MD PCP - General Family Medicine 12/12/17 02/14/18 Elizabet Hair MD PCP - General 02/15/18 08/15/18 Marybeth Chacon MD PCP - General Internal Medicine 08/16/18 09/02/19 Alfreda Costa DO [address] [place] [address] PCP - General Internal Medicine 09/03/19 Leela Nieto NP [address] [place] [address] PCP - Backup PCP Internal Medicine 09/03/19 11/17/22 documented as of this encounter
--- OUTSIDE RECORDS SUMMARY | 2024-06-25 19:20 | XMS_ITS | Encounter Summary ---
Demographics Address [address] [place] [address] Mobile Phone Home Phone Email Address Preferred Language Gabonese Marital Status Church Affiliation Unknown Race White Ethnic Group Unknown Author Organization [facility] Address [address] [place] [address] Support Name Relationship Address Phone Houston Haas Emergency Contact [address] [place] [address] Shana Danielle Emergency Contact [address] [place] [address] Care Team Providers Care Neck Skewer Name Role Phone Alfreda Costa DO Primary Care Provider [phone] Leela Nieto [employer] Unavailable Unavailable Reason for Visit * Reason Comments Unable To Schedule The patient is unabl e to contact for Mammography scheduling,several attempts was made to schedule the appointment, Encounter Details Date Type Department Care Team (Late st Contact Info) Description 12/24/2020 Telephone CALL CENTER [address] [address] Alfreda Costa DO [address] [place] [address] Unable To Schedule (The patient is unable to contact for Mammography scheduling,several attempts was made to schedule the appointment,) Social History Tobacco Use Types Packs/Day Years [...] encounter Miscellaneous Notes * Telephone Encounter - Daniela Bruno - 12/24/2020 7:00 PM EDT There was an attempt to schedule the appointment. The patient is unable to contact for scheduling MAMMOGRAPHY BILAT 3D JENA (DX: SCREENING FOR BREAST CANCER Z12.31) (1 YR FROM LAST) FC the order willbe Pull from [facility] 01/22/21. Thank You Radiology Scheduling Dpet documented in this encounter Plan of Treatment Upcoming Encounters Date Type Department Care Team (Late st Contact Info) Description 06/27/2024 11:00 AM EST Office Visit [facility] [address] [place] [address] Deanne Ibarra PA [address] [place] [address] HFU 08/16/2024 10:25 AM EDT CPE - Comprehensive Physical Exam [facility] [address] [place] [address] Alfreda Costa DO [address] [place] [address] Physical - [facility] S[facility] 02/27/2025 1:15 PM EST Radiology [facility]. Mammography [address] [place] [address] documented as of this encounter Results * Due to [place] state law, this organization might not be sharing negative HIV tests. * MAMMOGRAPHY BILAT 3D JENA (DX: SCREENING FOR BREAST CANCER Z12.31) (1 YR FROM LAST) FC (01/08/2021 1:38 PM EDT) Anatomical Region Laterality Modality BREAST Bilateral Mammography Impressions 01/12/2021 1:03 PM EDT : No specific mammographic evidence of malignancy. RECOMMENDATION: ? - Routine Screening Mammogram in 1 Year for both breasts. BI-RADS: 1 Negative (overall) RESULTS COMMUNICATED TO PATIENT: In a letter Narrative 01/12/2021 1:03 PM EDT EXAMINATION: SCREENING MAMMOGRAM HISTORY: Routine screening mammogram. TECHNIQUE: Digital Bilateral, CAD ,tomosynthesis COMPARISON: Comparison is made to prior mammograms. BREAST COMPOSITION: ??The breasts are heterogeneously dense, which may obscure small masses. FINDINGS:No suspicious dominant mass lesions, clustered microcalcifications, or areas of unexplained architectural distortion are seen in either breast(s). Alfreda Costa DO IMG MAMMO ORDERABLES Final Resul t documented in this encounter Visit Diagnoses Not on filedocumented in this encounter Additional Health Concerns Infection Onset Date Last Indicated Resolved Time COVID-19 Rule-Out 01/05/2021 01/05/2021 01/06/2021 11:16 AM EDT documented as of this encounter Care Teams Neck Skewer Relationship Specialty Start Date End Date Alfreda Costa DO [address] [place] [address] PCP - General Internal Medicine 09/03/19 Leela Nieto NP [address] [place] [address] PCP - Backup PCP Internal Medicine 09/03/19 11/17/22 documented as of this encounter
--- OUTSIDE RECORDS SUMMARY | 2024-06-25 19:20 | XMS_ITS | Encounter Summary ---
Demographics Address [address] [place] [address] Mobile Phone Home Phone Email Address [email or web address] Preferred Language North Korean Marital Status Buddhism Affiliation Unknown Race White Ethnic Group Unknown Author Organization [facility] Address [address] [place] [address] Support Name Relationship Address Phone Houston Paz Germain Emergency Contact 2 [address] [place] [address] Shana Danielle Emergency Contact [address] [place] [address] Care Team Providers Care Supervising Appraiser Name Role Phone Baldo Parmar MD Primary Care Provider Unavaila Ami Ansari-Megan Unavailable Unavailab Elizabet Hawthorne MD Primary Care Provider [phone] Elizabet Hair MD Primary Care Provider [phone] Marybeth Chacon MD Primary Care Provider [phone] Alfreda Costa DO Primary Care Provider Leela Nieto LABORATORY SECRETARY Unavailable Unavailable Reason for Referral * OUTPT PROCEDURES AND DIAGNOSTICS (Routine) - New Request Specialty Diagnoses / Procedures Referred By Juventino bailon Referred To Contact Endocrinology Diagnoses Multinodular goiter Procedures REQUEST FOR THYROID FINE NEEDLE US GUIDED BIOPSY NON-FC Marcy David MD Phone: tel: fax: Referral ID Status Reason Start Date Expiration Date Visits Requested Visits Authorized [id number] New Request Specialty Services Required 10/20/2012 1 1 Encounter Details Date Type Department Care Team ([facility] st Contact Info) Description 10/20/[address] [facility] [address] [place] [phone] Marcy David MD [address] [address] Social History Tobacco Use Types Packs/Day Years [...] Upcoming Encounters Date Type Department Care Team ([facility] st Contact Info) Description 06/27/2024 11:00 AM EST Office Visit [facility] [address] [place] [address] Deanne Ibarra PA [address] [place] [address] HFU 08/16/2024 10:25 AM EDT CPE - Comprehensive Physical Exam [facility] [address] [place] [address] Alfreda Costa DO [address] [place] [address] Physical - [facility] 02/27/2025 1:15 PM EST Radiology [facility]. Mammography [address] [place] [address] Scheduled Orders Name Type Priority Associated Diagnoses Orde r Schedule REQUEST FOR THYROID FINE NEEDLE US GUIDED BIOPSY NON-FC Procedures Routine Multinodular goiter Ordered: 10/20/2012 documented as of this encounter Visit Diagnoses Diagnosis Multinodular goiter- Primary Nontoxic multinodular goiter documented in this encounter Additional Health Concerns Infection Onset Date Last Indicated Resolved Time COVID-19 Rule-Out 01/05/2021 01/05/2021 01/06/2021 11:16 AM EDT documented as of this encounter Care Teams Supervising Appraiser Relationship Specialty Start Date End Date Baldo Parmar MD PCP - General 05/11/12 12/11/17 Ami Osullivan PA-C PCP - Backup PCP Internal Medicine 06/16/15 11/24/17 Elizabet Hair MD PCP - General Family Medicine 12/12/17 02/14/18 Elizabet Hair MD PCP - General 02/15/18 08/15/18 Marybeth Chacon MD PCP - General Internal Medicine 08/16/18 09/02/19 Alfreda Costa DO [address] [place] [address] PCP - General Internal Medicine 09/03/19 Leela Nieto NP [address] [place] [address] PCP - Backup PCP Internal Medicine 09/03/19 11/17/22 documented as of this encounter
--- OUTSIDE RECORDS SUMMARY | 2024-06-25 19:20 | XMS_ITS | Encounter Summary ---
Demographics Address [address] [place] [address] Mobile Phone Home Phone Email Address Preferred Language Singaporean Marital Status Adventism Affiliation Unknown Race White Ethnic Group Unknown Author Organization [facility] Address [address] [place] [address] Support Name Relationship Address Phone [place] Haas Emergency Contact [address] [place] [address] Shana Danielle Emergency Contact [address] [place] [address] Care Team Providers Care Outpatient Services Director Name Role Phone Baldo Parmar MD Primary Care Provider Unavaila Ami Ansari-Megan Unavailable Unavailab Elizabet Hawthorne MD Primary Care Provider [phone] Elizabet Hair MD Primary Care Provider [phone] Marybeth Chacon MD Primary Care Provider [phone] Alfreda Costa DO Primary Care Provider [phone] Leela Nieto NP Unavailable Unavailable Encounter Details Date Type Department Care Team (Late st Contact Info) Description 05/04/2017 Orders Only [facility] [address] [place] [phone] Sharona Workman NP Social History Tobacco Use [...] Description 06/27/2024 11:00 AM EST Office Visit [facility] [address] [place] [address] Deanne Ibarra PA [address] [place] [address] HFU 08/16/2024 10:25 AM EDT CPE - Comprehensive Physical Exam [facility] 4 [place] [id number] Alfreda Costa DO [address] [place] [address] Physical - [facility] 02/27/2025 1:15 PM EST Radiology [facility]. Mammography [address] [place] [address] documented as of this encounter Procedures * Due to [place] [employer] law, this organization might not be sharing negative HIV tests. Procedure Name Priority Date/Time Associated Diagnosis Comments ALANINE AMINOTRANSFERASE (ALT), SERUM Routine 05/04/2017 3:00 PM EST Healthcare maintenance LIPID PANEL WITH REFLEX TO DIRECT LDL Routine 05/04/2017 3:00 PM EST Healthcare maintenance documented in this encounter Results * Due to [place] [employer] law, this organization might not be sharing negative HIV tests. * ALANINE AMINOTRANSFERASE (ALT), SERUM (05/04/2017 3:00 PM EST) ALT (SGPT) 28 6 - 29 U/L [facility] 05/04/2017 3:00 PM EST 05/04/2017 10:55 PM EST Narrative Resulting Agency Comment [id number] us Sharona Workman NP LAB SAME DAY RESULT Final Re sult [facility] [address] [place] [address] * (ABNORMAL) LIPID PANEL WITH REFLEX TO DIRECT LDL (05/04/2017 3:00 PM EST) Cholesterol 224(H) <200 mg/dL [facility] HDL Cholesterol 82 >50 mg/dL [facility] Triglyceride 80 <150 mg/dL [facility] LDL Cholesterol 125(H) mg/dL (calc) [facility] Comment: Reference range: <100 Desirable range <100 mg/dL for patients with CHD or diabetes and <70 mg/dL for diabetic patients with known heart disease. LDL-C is now calculated using the Quentin-Arevalo calculation, which is a validated novel method providing better accuracy than the Friedewald equation in the estimation of LDL-C. Quentin SS et al. JAMEE. 2013;310(19): 6645-4507 (http://education.[employer]/faq/WTI694) CHOL/HDL Ratio 2.7 <5.0 (calc) [facility] Cholesterol Non-HDL 142(H) <130 mg/dL (calc) [facility] Comment: For patients with diabetes plus 1 major ASCVD risk factor, treating to a non-HDL-C goal of <100 mg/dL (LDL-C of <70 mg/dL) is considered a therapeutic option. 05/04/2017 3:00 PM EST 05/04/2017 10:55 PM EST Narrative Resulting Agency Comment [id number] Sharona Workman NP LABORATORY Final Result [facility] [address] [place] [address] documented in this encounter Visit Diagnoses Diagnosis Healthcare maintenance Routine general medical examination at a health care facility documented in this encounter Additional Health Concerns Infection Onset Date Last Indicated Resolved Time COVID-19 Rule-Out 01/05/2021 01/05/2021 01/06/2021 11:16 AM EDT documented as of this encounter Care Teams Outpatient Services Director Relationship Specialty Start Date End Date Baldo Parmar MD PCP - General 05/11/12 12/11/17 Ami Osullvian PA-C PCP - Backup PCP Internal Medicine 06/16/15 11/24/17 Elizabet Hair MD PCP - General Family Medicine 12/12/17 02/14/18 Elizabet Hair MD PCP - General 02/15/18 08/15/18 Marybeth Chacon MD PCP - General Internal Medicine 08/16/18 09/02/19 Alfreda Costa DO [address] [place] [address] PCP - General Internal Medicine 09/03/19 Leela Nieto NP [address] [place] [address] PCP - Backup PCP Internal Medicine 09/03/19 11/17/22 documented as of this encounter
--- OUTSIDE RECORDS SUMMARY | 2024-06-25 19:20 | XMS_ITS | Encounter Summary ---
Demographics Address [address] [place] [address] Mobile Phone Home Phone Email Address Preferred Language Icelandic Marital Status Sikhism Affiliation Unknown Race White Ethnic Group Unknown Author Organization [facility] Address [address] [place] [address] Support Name Relationship Address Phone Houston Zambrano [facility] Emergency Contact [address] [place] [address] Shana Danielle Emergency Contact [address] [place] [address] Care Team Providers Care Filler Spreader Name Role Phone Baldo Parmar MD Primary Care Provider Unavaila Ami Ansari-Megan Unavailable Unavailab Elizabet Hawthorne MD Primary Care Provider [phone] Elizabet Hair MD Primary Care Provider [phone] Marybeth Chacon MD Primary Care Provider [phone] Alfreda Costa DO Primary Care Provider [phone] Leela Nieto CEMENT PAVER Unavailable Unavailable Encounter Details Date Type Department Care Team (Late st Contact Info) Description 06/23/2017 Orders Only [facility] Orthopedic Surgery [address] [facility] [address] [place] [address] Houston Conti MD [address] [place] [address] Social History Tobacco Use Types Packs/Day Years [...] Description 06/27/2024 11:00 AM EST Office Visit [facility] [address] [place] [address] Deanne Ibarra PA [address] [place] [address] HFU 08/16/2024 10:25 AM EDT CPE - Comprehensive Physical Exam [facility] [address] [place] [phone] Alfreda Costa DO [address] [place] [address] Physical [facility] 02/27/2025 1:15 PM EST Radiology [facility]. [facility] [address] [place] [phone] documented as of this encounter Results * Due to [place] state law, this organization might not be sharing negative HIV tests. * XRAY HIPS, BILAT, COMPLETE 2 VIEWS FC (07/26/2017 2:31 PM EDT) Anatomical Region Laterality Modality LOWER EXTREMITY Computed Radiogr aphy 07/27/2017 9:04 PM EDT Narrative 07/27/2017 9:04 PM EDT Single view of the pelvis with bilateral hips Comparison: None Findings: Minimal degenerative changes of the right hip with minimal osteophyte formation. ??No fractures. ??Normal alignment. Normal left hip. ??No fractures. ??Normal alignment. ??No significant degenerative changes. Impression: Minimal degenerative changes right hip with minimal osteophyte formation. Procedure Note Cal Gray MD - 07/27/2017 Single view of the pelvis with bilateral hips Comparison: None Findings: Minimal degenerative changes of the right hip with minimalosteophyte formation. No fractures. Normal alignment. Normal left hip. No fractures. Normal alignment. No significantdegenerative changes. Impression: Minimal degenerative changes right hip with minimal osteophyteformation. us Houston Conti MD IMG XRAY NO CONTRAST ORDERABLE S Final Result documented in this encounter Visit Diagnoses Diagnosis Bilateral hip pain Pain in joint, pelvic region and thigh Bilateral hip pain Pain in joint, pelvic region and thigh Chronic right shoulder pain Pain in joint, shoulder region documented in this encounter Additional Health Concerns Infection Onset Date Last Indicated Resolved Time COVID-19 Rule-Out 01/05/2021 01/05/2021 01/06/2021 11:16 AM EDT documented as of this encounter Care Teams Filler Spreader Relationship Specialty Start Date End Date Baldo Parmar MD PCP - General 05/11/12 12/11/17 Ami Osullivan PA-C PCP - Backup PCP Internal Medicine 06/16/15 11/24/17 Elizabet Hair MD PCP - General Family Medicine 12/12/17 02/14/18 Elizabet Hair MD PCP - General 02/15/18 08/15/18 Marybeth Chacon MD PCP - General Internal Medicine 08/16/18 09/02/19 lAfreda Costa DO [address] [place] [address] PCP - General Internal Medicine 09/03/19 Leela Nieto NP [address] [place] [address] PCP - Backup PCP Internal Medicine 09/03/19 11/17/22 documented as of this encounter
--- OUTSIDE RECORDS SUMMARY | 2024-06-25 19:20 | XMS_ITS | Encounter Summary ---
Demographics Address [address] [place] [address] Mobile Phone Home Phone Email Address Preferred Language Kazakh Marital Status Latter Day Affiliation Unknown Race White Ethnic Group Unknown Author Organization [facility] Address [address] [place] [address] Support Name Relationship Address Phone [place] Paz Germain Emergency Contact 2 [address] [place] [address] Shana Danielle Emergency Contact [address] [place] [address] Care Team Providers Care Reinforcing Rod Layer Name Role Phone Baldo Parmar MD Primary Care Provider Unavaila Ami Ansari-C Unavailable Unavailab Elizabet Hawthorne MD Primary Care Provider [phone] Elizabet Hair MD Primary Care Provider [phone] Marybeth Chacon MD Primary Care Provider [phone] Alfreda Costa DO Primary Care Provider [phone] Leela Nieto COGNOS TM1 DEVELOPER Unavailable Unavailable Encounter Details Date Type Department Care Team (Late st Contact Info) Description 09/14/2012 Orders Only [facility] Endocrinology [address] [place] [phone] Marcy David MD [facility] [address] [address] Social History Tobacco Use Types Packs/Day Years [...] Description 06/27/2024 11:00 AM EST Office Visit [facility] [address] [place] [address] Deanne Ibarra PA [address] [place] [address] HFU 08/16/2024 10:25 AM EDT CPE - Comprehensive Physical Exam [facility] [address] [place] [phone] Alfreda Costa DO [address] [place] [address] Physical - [facility] 02/27/2025 1:15 PM EST Radiology [facility]. Mammography [address] [place] [address] documented as of this encounter Procedures * Due to [place] state law, this organization might not be sharing negative HIV tests. Procedure Name Priority Date/Time Associated Diagnosis Comments ERYTHROCYTE SEDIMENTATION RATE (ESR) Routine 09/14/2012 7:41 AM EDT Fatigue CBC INCLUDES DIFFERENTIAL AND PLATELET COUNT Routine 09/14/2012 7:41 AM EDT Fatigue ASPARTATE AMINOTRANSFERASE (AST), SERUM Routine 09/14/2012 7:41 AM EDT Fatigue TSH, 3RD GENERATION Routine 09/14/2012 7 :41 AM EDT Multinodular thyroid IRON PROFILE (IRON/TIBC), SERUM Routine 09/14/2012 7:41 AM EDT Fatigue FERRITIN Routine 09/14/2012 7:41 AM EDT Fatigue BASIC METABOLIC PANEL WITH (GFR) Routine 09/14/2012 7:41 AM EDT Fatigue documented in this encounter Results * Due to [place] state law, this organization might not be sharing negative HIV tests. * ERYTHROCYTE SEDIMENTATION RATE (ESR), WESTERGREN (09/14/2012 7:41 AM EDT) Sedimentation Rate [place] (ESR) 14 < OR = 20 mm/h [facility] Comment:{SED RATE BY MODIFIE D WESTERGREN {[id number]) 09/14/2012 7:41 AM EDT 09/14/2012 11:36 AM EDT Narrative Resulting Agency Comment [id number] Marcy David MD LAB SAME DAY RESULT Final Resu lt Performing Organization Address City/[facility]/ZIP Co de Phone Number [facility] [address] [place] [address] * ASPARTATE AMINOTRANSFERASE (AST), SERUM (09/14/2012 7:41 AM EDT) AST (SGOT) 17 10 - 35 U/L [facility] Comment:{AST {[id number]) 09/14/2012 7:41 AM EDT 09/14/2012 11:36 AM EDT Narrative Resulting Agency Comment [id number] Marcy David MD LAB SAME DAY RESULT Final Resu lt Performing Organization Address City/[facility]/ZIP Co de Phone Number [facility] [address] [place] [address] * (ABNORMAL) BASIC METABOLIC PANEL WITH (GFR) (09/14/2012 7:41 AM EDT) Glucose 100(H) 65 - 99 mg/dL [facility] Comment: {GLUCOSE {[id number]) ? Fasting reference interval Urea Nitrogen Blood (BUN) 15 7 - 25 mg/dL [facility] Comment:{UREA NITROGEN (BUN) {[id number]) Creatinine 0.84 0.50 - 1.05 mg/dL [facility] Comment: {CREATININE {[id number]) For patients >49 years of age, the reference limit for Creatinine is approximately 13% higher for people identified as -Brazilian. GFR 81 > OR = 60 mL/min/1 .73m2 [facility] Comment:{eGFR NON-AFR. AMERI CAN {[id number]) GFR () 94 > OR = 60 mL/min/1 .73m2 [facility] Comment:{eGFR AMERIC AN {[id number]) BUN/Creatinine Ratio NOT APPLICABLE 6 (calc) [facility] Comment:{BUN/CREATININE RATI O {[id number]) Sodium 140 135 - 146 mmol/L [facility] Comment:{SODIUM {[id number]) Potassium 4.2 3.5 - 5.3 mmol/L [facility] Comment:{POTASSIUM {[id number]) Chloride 105 98 - 110 mmol/L [facility] Comment:{CHLORIDE {[id number]) Carbon dioxide 26 19 - 30 mmol/L [facility] Comment:{CARBON DIOXIDE {[id number]) Calcium 9.1 8.6 - 10.4 mg/dL [facility] Comment:{CALCIUM {[id number]) 09/14/2012 7:41 AM EDT 09/14/2012 11:36 AM EDT Narrative [facility] - 09/14/2012 3:46 PM EDT Please note that this estimated [...] needs for GFR calculation. Resulting Agency Comment [id number] Marcy David MD LABORATORY Final Result [facility] [address] [place] [address] * CBC INCLUDES DIFFERENTIAL AND PLATELET COUNT (09/14/2012 7:41 AM EDT) WBC 6.5 3.8 - 10.8 Thousand/u L [facility] Comment:{WHITE BLOOD CELL CO UNT {[id number]) RBC 4.28 3.80 - 5.10 Million/uL [facility] Comment:{RED BLOOD CELL COUN T {[id number]) Hemoglobin 12.6 11.7 - 15.5 g/dL [facility] Comment:{HEMOGLOBIN {[id number]) Hematocrit 37.5 35.0 - 45.0 % [facility] Comment:{HEMATOCRIT {[id number]) MCV 87.6 80.0 - 100.0 fL [facility] Comment:{MCV {[id number]) MCH 29.4 27.0 - 33.0 pg [facility] Comment:{MCH {[id number]) MCHC 33.6 32.0 - 36.0 g/dL [facility] Comment:{MCHC {[id number]) RDW 13.5 11.0 - 15.0 % [facility] Comment:{RDW {[id number]) PLT 345 140 - 400 Thousand/u L [facility] Comment:{PLATELET COUNT {[id number]) MPV 8.5 7.5 - 11.5 fL [facility] Comment:{MPV {[id number]) Neutrophils # 2912 1500 - 7800 cells/uL [facility] Comment:{ABSOLUTE NEUTROPHIL S {[id number]) Lymphocytes # 2776 850 - 3900 cells/uL [facility] Comment:{ABSOLUTE LYMPHOCYTE S {[id number]) Monocytes # 644 200 - 950 cells/uL [facility] Comment:{ABSOLUTE MONOCYTES {[id number]) Eosinophils # 150 15 - 500 cells/uL [facility] Comment:{ABSOLUTE EOSINOPHIL S {[id number]) Basophils # 20 0 - 200 cells/uL [facility] Comment:{ABSOLUTE BASOPHILS {[id number]) Neutrophils % 44.8 % [facility] Comment:{NEUTROPHILS {[id number]) Lymphocytes % 42.7 % [facility] Comment:{LYMPHOCYTES {[id number]) Monocytes % 9.9 % [facility] Comment:{MONOCYTES {[id number]) Eosinophils % 2.3 % [facility] Comment:{EOSINOPHILS {[id number]) Basophils % 0.3 % [facility] Comment:{BASOPHILS {[id number]) 09/14/2012 7:41 AM EDT 09/14/2012 11:36 AM EDT Narrative Resulting Agency Comment [id number] Marcy David MD LAB SAME DAY RESULT Final Resu lt Performing Organization Address City/[facility] Co de Phone Number [facility] [address] [place] [address] * IRON PROFILE (IRON/TIBC), SERUM (09/14/2012 7:41 AM EDT) Iron 92 40 - 160 mcg/dL [facility] Comment:{IRON, TOTAL {[id number]) Iron binding capacity 411 250 - 450 mcg/dL [facility] Comment:{IRON BINDING CAPACI TY {[id number]) Iron saturation 22 15 - 50 % (calc) [facility] Comment:{% SATURATION {[id number]) 09/14/2012 7:41 AM EDT 09/14/2012 11:36 AM EDT Narrative Resulting Agency Comment [id number] Marcy David MD LABORATORY Final Result Performing Organization Address [facility] Co de Phone Number [facility] [address] [place] [address] * FERRITIN (09/14/2012 7:41 AM EDT) Ferritin 85 10 - 232 ng/mL [facility] Comment:{FERRITIN {[id number]) 09/14/2012 7:41 AM EDT 09/14/2012 11:36 AM EDT Narrative Resulting Agency Comment [id number] Marcy David MD LABORATORY Final Result Performing Organization Address City/[facility] Co de Phone Number [facility] [address] [place] [address] * TSH, 3RD GENERATION (09/14/2012 7:41 AM EDT) TSH 0.61 mIU/L [facility] Comment: {TSH {[id number]) ?Reference Range ?> or = 20 Years ??0.40-4.50 ? Ranges ?First trimester ?0.26-2.66 ?Second trimester ?? 0.55-2.73 ?Third trimester ?0.43-2.91 09/14/2012 7:41 AM EDT 09/14/2012 11:36 AM EDT Narrative Resulting Agency Comment [id number] Marcy David MD LABORATORY Final Result Performing Organization Address City/State/[facility] Co de Phone Number [facility] [address] [place] [address] documented in this encounter Visit Diagnoses Diagnosis Multinodular thyroid Nontoxic multinodular goiter Fatigue Other malaise and fatigue documented in this encounter Additional Health Concerns Infection Onset Date Last Indicated Resolved Time COVID-19 Rule-Out 01/05/2021 01/05/2021 01/06/2021 11:16 AM EDT documented as of this encounter Care Teams Reinforcing Rod Layer Relationship Specialty Start Date End Date Baldo Parmar MD PCP - General 05/11/12 12/11/17 Ami Osullivan PA-C PCP - Backup PCP Internal Medicine 06/16/15 11/24/17 Elizabet Hair MD PCP - General Family Medicine 12/12/17 02/14/18 Elizabet Hair MD PCP - General 02/15/18 08/15/18 Marybeth Chacon MD PCP - General Internal Medicine 08/16/18 09/02/19 Alfreda Costa DO [address] [place] [address] PCP - General Internal Medicine 09/03/19 Leela Nieto NP [address] [place] [address] PCP - Backup PCP Internal Medicine 09/03/19 11/17/22 documented as of this encounter
--- OUTSIDE RECORDS SUMMARY | 2024-06-25 19:20 | XMS_ITS | Encounter Summary ---
Demographics Address [address] [place] [address] Mobile Phone Home Phone Email Address Preferred Language Montenegrin Marital Status Voodoo Affiliation Unknown Race White Ethnic Group Unknown Author Organization [facility] Address [address] [place] [address] Support Name Relationship Address Phone [place] Haas Emergency Contact [address] [place] [address] Shana Danielle Emergency Contact [address] [place] [address] Care Team Providers Care Manager Home Name Role Phone Baldo Parmar MD Primary Care Provider Unavaila ble Ami Osullivan-C Unavailable Unavailab Elizabet Hawthorne MD Primary Care Provider [phone] Elizabet Hair MD Primary Care Provider [phone] Marybeth Chacon MD Primary Care Provider [phone] Alfreda Costa DO Primary Care Provider [phone] Leela Nieto MISSILE INSPECTOR PREFLIGHT Unavailable Unavailable Encounter Details Date Type Department Care Team ([facility] Contact Info) Description 09/14/2012 Orders Only [facility] [address] [place] [phone] Ami Osullivan, PATellyC Social History Tobacco Use [...] Description 06/27/2024 11:00 AM EST Office Visit [facility] [address] [place] [phone] Deanne Ibarra PA [address] [place] [address] HFU 08/16/2024 10:25 AM EDT CPE - Comprehensive Physical Exam [facility] [address] [place] [phone] Alfreda Costa DO [address] [place] [address] Physical - [facility] SENT [facility] 02/27/2025 1:15 PM EST Radiology [facility]. Mammography [address] [place] [address] documented as of this encounter Procedures * Due to [place] [employer] law, this organization might not be sharing negative HIV tests. Procedure Name Priority Date/Time Associated Diagnosis Comments VITAMIN D, 25-HYDROXY, TOTAL, IMMUNOASSAY Routine 09/14/2012 7:41 AM EDT Special screening for other specified conditions LIPID PANEL WITH REFLEX TO DIRECT LDL Routine 09/14/2012 7:41 AM EDT Lipid screening documented in this encounter Results * Due to [place] [employer] law, this organization might not be sharing negative HIV tests. * VITAMIN D, 25-HYDROXY, LC/MS/MS (09/14/2012 7:41 AM EDT) Vitamin D, 25-OH, Total 42 30 - 100 ng/mL [facility] Comment:{VITAMIN D, 25 OH, T OTAL {[id number]) Vitamin D, D3 (Cholecalciferol ) 42 ng/mL [facility] Comment:{VITAMIN D, 25 OH, D 3 {[id number]) Vitamin D, 25-OH, D2 (Calciferol) <4 ng/mL [facility] Comment: {VITAMIN D, 25 OH, D2 {[id number]) ? 25-OHD3 indicates both endogenous production and ? supplementation. 25-OHD2 is an indicator of exogenous ? sources such as diet or supplementation. Therapy is based on ? measurement of Total 25-OHD, with levels <20 ng/mL indicative ? of Vitamin D deficiency, while levels between 20 ng/mL and ? 30 ng/mL suggest insufficiency. Optimal levels are ? > or = 30 ng/mL. 09/14/2012 7:41 AM EDT 09/14/2012 11:36 AM EDT Narrative Resulting Agency Comment [id number] Baldo Parmar MD LABORATORY Final Result [facility] [address] [place] [address] * (ABNORMAL) LIPID PANEL WITH REFLEX TO DIRECT LDL (09/14/2012 7:41 AM EDT) Cholesterol 208(H) 125 - 200 mg/dL [facility] Comment:{CHOLESTEROL, TOTAL {[id number]) HDL Cholesterol 68 > OR = 46 mg/dL [facility] Comment:{HDL CHOLESTEROL {[id number]) Triglyceride 143 <150 mg/dL [facility] Comment:{TRIGLYCERIDES {[id number]) LDL Cholesterol 111 <130 mg/dL (calc) [facility] Comment: {LDL-CHOLESTEROL {[id number]) Desirable range <100 mg/dL for patients with CHD or diabetes and <70 mg/dL for diabetic patients with known heart disease. CHOL/HDL Ratio 3.1 < OR = 5.0 (calc) [facility] Comment:{CHOL/HDLC RATIO {[id number]) Cholesterol Non-HDL 140 mg/dL (calc) [facility] Comment: {NON HDL CHOLESTEROL {[id number]) Target for non-HDL cholesterol is 30 mg/dL higher than LDL cholesterol target. 09/14/2012 7:41 AM EDT 09/14/2012 11:36 AM EDT Narrative Resulting Agency Comment [id number] Baldo Parmar MD LABORATORY Final Result [facility] [address] [place] [address] documented in this encounter Visit Diagnoses Diagnosis Lipid screening Screening for lipoid disorders Special screening for other specified conditions(V82.89) Special screening for other specified conditions documented in this encounter Additional Health Concerns Infection Onset Date Last Indicated Resolved Time COVID-19 Rule-Out 01/05/2021 01/05/2021 01/06/2021 11:16 AM EDT documented as of this encounter Care Teams Manager Home Relationship Specialty Start Date End Date Baldo Parmar MD PCP - General 05/11/12 12/11/17 Ami Osullivan PA-C PCP - Backup PCP Internal Medicine 06/16/15 11/24/17 Elizabet Hair MD PCP - General Family Medicine 12/12/17 02/14/18 Elizabet Hair MD PCP - General 02/15/18 08/15/18 Marybeth Chacon MD PCP - General Internal Medicine 08/16/18 09/02/19 Alfreda Costa DO [address] [place] [address] PCP - General Internal Medicine 09/03/19 Leela Nieto NP [address] [place] [address] PCP - Backup PCP Internal Medicine 09/03/19 11/17/22 documented as of this encounter
--- OUTSIDE RECORDS SUMMARY | 2024-06-25 19:20 | XMS_ITS | Encounter Summary ---
Demographics Address [address] [place] [address] Mobile Phone Home Phone Email Address [email or web address] Preferred Language Bermudian Marital Status Rastafari Affiliation Unknown Race White Ethnic Group Unknown Author Organization [facility] Address [address] [place] [address] Support Name Relationship Address Phone [place] Haas Emergency Contact 2 [address] [place] [address] Shana Danielle Emergency Contact [address] [place] [address] Care Team Providers Care Skilled Nursing Facility Counselor Name Role Phone CostaAlfreda Primary Care Provider [phone] Leela Nieto MANAGER APPOINTMENT Unavailable Unavailable Reason for Visit * Reason Comments Appointment Encounter Details Date Type Department Care Team (Late st Contact Info) Description 10/24/2020 Telephone [facility] Neurology [address] [facility] [address] [place] [address] Ramakrishna Whitt MD [address] [place] [address] Appointment Social History Tobacco Use Types Packs/Day Years [...] Telephone Encounter - Naheed Hardwick RN - 10/24/2020 2:06 PM EDT See other tms * Telephone Encounter - Ann Brady - 10/24/2020 2:02 PM EDT Dorothy called she has been experiencing new symptoms that have nothing to do with her headaches or botox. She went to the ER recently for uncontrollable jerking of her body. She is looking to come in and see Dr. Whitt but you are booking 12/22/20 for an appointment and she really can't wait that long. She is looking to have you call her on return to the office. Please call then. documented in this encounter Plan of Treatment Upcoming Encounters Date Type Department Care Team (Late st Contact Info) Description 06/27/2024 11:00 AM EST Office Visit [facility] [address] [place] [address] Deanne Ibarra PA [address] [place] [address] [facility] 08/16/2024 10:25 AM EDT CPE - Comprehensive Physical Exam [facility] [address] [place] [address] Alfreda Costa DO [address] [place] [address] Physical [facility] 02/27/2025 1:15 PM EST Radiology [address] Mammography [address] [place] [address] documented as of this encounter Visit Diagnoses Not on filedocumented in this encounter Additional Health Concerns Infection Onset Date Last Indicated Resolved Time COVID-19 Rule-Out 01/05/2021 01/05/2021 01/06/2021 11:16 AM EDT documented as of this encounter Care Teams Skilled Nursing Facility Counselor Relationship Specialty Start Date End Date Alfreda Costa DO [address] [place] [address] PCP - General Internal Medicine 09/03/19 Leela Nieto NP [address] [place] [address] PCP - Backup PCP Internal Medicine 09/03/19 11/17/22 documented as of this encounter
--- OUTSIDE RECORDS SUMMARY | 2024-06-25 19:20 | XMS_ITS | Encounter Summary ---
Demographics Address [address] [place] [address] Mobile Phone Home Phone Email Address Preferred Language Bahraini Marital Status Jainism Affiliation Unknown Race White Ethnic Group Unknown Author Organization [facility] Address [address] [place] [address] Support Name Relationship Address Phone [place] Haas Emergency Contact 2 [address] [place] [address] Shana Danielle Emergency Contact [address] [place] [address] Care Team Providers Care Electric Blasting Cap Assembler Name Role Phone CostaAlfreda Primary Care Provider [phone] Encounter Details Date Type Department Care Team (Latest Contact Info) Description 06/07/2024 Professional Billing [facility] Based Traffic Or System Dispatcher Bon Clark MD [address] [place] [address] Lower abdominal pain [R10.30]; Hip pain, unspecified laterality [M25.559]; Difficulty walking [R26.2]; Hypotension, unspecified hypotension type [I95.9]; Bilateral pulmonary embolism (HCC) [I26.99]; Acute deep vein thrombosis (DVT) of left peroneal vein (HCC) [I82.452]; Pelvic abscess in female [N73.9]; Bacteremia due to Streptococcus [R78.81, B95.5]; Memory loss [R41.3]; Constipation, unspecified constipation type [K59.00] Social History Tobacco Use Types Packs/Day Years [...] Description 06/27/2024 11:00 AM EST Office Visit [facility] [address] [place] [address] Deanne Ibarra PA [address] [place] [address] HFU 08/16/2024 10:25 AM EDT CPE - Comprehensive Physical Exam [facility] [address] [place] [address] Alfreda Costa DO [address] [place] [address] Physical - LETTER SENT TO [facility] 02/27/2025 1:15 PM EST Radiology 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
--- OUTSIDE RECORDS SUMMARY | 2024-06-25 19:20 | XMS_ITS | Encounter Summary ---
Demographics Address [address] [place] [address] Mobile Phone Home Phone Email Address [email or web address] Preferred Language Papua [place] Guinean Marital Status Denominational Affiliation Unknown Race White Ethnic Group Unknown Author Organization [facility] Address [address] [place] [address] Support Name Relationship Address Phone [place] Haas Emergency Contact 2 [address] [place] [address] Shana Danielle Emergency Contact [address] [place] [address] Care Team Providers Care Airset Molder Name Role Phone Baldo Parmar MD Primary Care Provider Unavaila Ami Ansari-Megan Unavailable Unavailab Elizabet Hawthorne MD Primary Care Provider [phone] Elizabet Hair MD Primary Care Provider [phone] Marybeth Chacon MD Primary Care Provider [phone] Alfreda Costa DO Primary Care Provider [phone] Leela Nieto GAS ANALYST Unavailable Unavailable Encounter Details Date Type Department Care Team (Late st Contact Info) Description 07/22/2016 Orders Only [facility] [address] [place] [facility] [address] [place] [address] Amie Wade CRNP [address] [place] [address] Social History Tobacco Use Types Packs/Day Years [...] as of this encounter Progress Notes * Megha Sun LVN LPN - 07/28/2016 10:56 AM EDT Per provider note, No hx of abnl pap. Normal pap/hpv letter sent to pt with annual breast/pelvic exams and repeat pap in 3 years. To provider documented in this encounter Plan of Treatment Upcoming Encounters Date Type Department Care Team (Late st Contact Info) Description 06/27/2024 11:00 AM EST Office Visit [facility] [address] [place] [address] Deanne Ibarra PA [address] [place] [address] HFU 08/16/2024 10:25 AM EDT CPE - Comprehensive Physical Exam [facility] [address] [place] [address] Alfreda Costa DO [address] [place] [address] Physical - [facility] SENT [facility] 02/27/2025 1:15 PM EST Radiology [facility]. Mammography [address] [place] [phone] documented as of this encounter Procedures * Due to [place] Sm[employer] law, this organization might not be sharing negative HIV tests. Procedure Name Priority Date/Time Associated Diagnosis Comments [facility] PAP AND HR HPV DNA Routine 07/22/2016 1:19 PM EDT Screening for malignant neoplasm of cervix documented in this encounter Results * Due to [place] Sm[employer] law, this organization might not be sharing negative HIV tests. * [facility] PAP AND HR HPV DNA (07/22/2016 1:19 PM EDT) Clinical information None given [facility] Date last menstrual period [id number] [facility] Date of previous PAP smear [id number] -HPV- [facility] Date of previous biopsy NONE GIVEN [facility] Specimen source (Cvx/Vag) Cervix, Endocervix [facility] Statement of Adequacy (Cvx/Vag) Satisfactory for evaluation. Endocervical/zhou sformation zone component present. Partially obscuring inflammation [facility] Cytology, Pap Smear Negative for intraepithelial lesion or malignancy. [facility] Cytology study comment (Cvx/Vag) This Pap test has been evaluated with computer assisted technology. [facility] Larriman Helper (Cvx/Vag) RMM, CT(ASCP) CT screening location: [place] [address] [facility] Larriman Helper (Cvx/Vag) CMG, CT(ASCP) CT screening location: [place] [address] [facility] HPV MRNA E6/E7 Not Detected NOT DETECTED [facility] Comment: This test was performed using the APTIMA HPV Assay ([employer] This assay detects E6/E7 viral messenger RNA (mRNA) from 14 high-risk HPV types (16,18,31,33,35,39,45,51,52,56,58,59,66,68). The analytical performance characteristics of this assay, when used to test [facility] specimens, have been determined by [employer] 07/22/2016 1:19 PM EDT 07/22/2016 10:56 PM EDT Narrative Resulting Agency Comment [id number] [facility] Final Result Performing Organization Address City/State/[facility] Co de Phone Number [facility] [address] [place] [address] documented in this encounter Visit Diagnoses Diagnosis Screening for malignant neoplasm of cervix Screening for malignant neoplasm of the cervix documented in this encounter Additional Health Concerns Infection Onset Date Last Indicated Resolved Time COVID-19 Rule-Out 01/05/2021 01/05/2021 01/06/2021 11:16 AM EDT documented as of this encounter Care Teams Airset Molder Relationship Specialty Start Date End Date Baldo Parmar MD PCP - General 05/11/12 12/11/17 Ami Osullivan PA-C PCP - Backup PCP Internal Medicine 06/16/15 11/24/17 Elizabet Hair MD PCP - General Family Medicine 12/12/17 02/14/18 Elizabet Hair MD PCP - General 02/15/18 08/15/18 Marybeth Chacon MD PCP - General Internal Medicine 08/16/18 09/02/19 Alfreda Costa DO 4 [place] [address] PCP - General Internal Medicine 09/03/19 Leela Nieto NP 4 [place] [address] PCP - Backup PCP Internal Medicine 09/03/19 11/17/22 documented as of this encounter
--- OUTSIDE RECORDS SUMMARY | 2024-06-25 19:20 | XMS_ITS | Encounter Summary ---
Demographics Address [address] [place] [address] Mobile Phone Home Phone Email Address Preferred Language Montserratian Marital Status Anabaptism Affiliation Unknown Race White Ethnic Group Unknown Author Organization [facility] Address [address] [place] [address] Support Name Relationship Address Phone [place] Haas Emergency Contact 2 [address] [place] [address] Shana Danielle Emergency Contact [address] [place] [address] Care Team Providers Care Dealer Sales Manager Name Role Phone Baldo Parmar MD Primary Care Provider Unavaila Ami Ansari-Megan Unavailable Unavailab Elizabet Hawthorne MD Primary Care Provider [phone] Elizabet Hair MD Primary Care Provider [phone] Marybeth Chacon MD Primary Care Provider [phone] Alfreda Costa DO Primary Care Provider [phone] Leela Nieto BANKING ASSISTANT Unavailable Unavailable Reason for Referral * OUTPT PROCEDURES AND DIAGNOSTICS (Routine) - Incomplete Specialty Diagnoses / Procedures Referred By Contac t Referred To Contact Vascular Lab Procedures REQUEST FOR VENOUS DUPLEX LEG BILATERAL (DX: LEG EDEMA R60.0) WITHIN 24 HOURS NON-FC Baldo Davis MD [address] [place] [address] Phone: tel: fax: Referral ID Status Reason Start Date Expiration Date Visits Requested Visits Authorized [id number] Incomplete Specialty Services Required 07/26/2016 1 1 Encounter Details Date Type Department Care Team ([facility] st Contact Info) Description 07/26/2016 Orders Only [facility] Vascular Surgery [address] [facility] [address] [place] [address] Baldo Davis MD [address] [place] [address] Social History Tobacco Use Types Packs/Day Years [...] Upcoming Encounters Date Type Department Care Team ([facility] Contact Info) Description 06/27/2024 11:00 AM EST Office Visit [facility] [address] [place] [address] Deanne Ibarra PA 4 [place] [address] HFU 08/16/2024 10:25 AM EDT CPE - Comprehensive Physical Exam [facility] 4 [place] [address] Alfreda Costa DO 4 [place] [address] Physical - [facility] 02/27/2025 1:15 PM EST Radiology [facility]. [facility] [address] [place] [phone] Scheduled Orders Name Type Priority Associated Diagnoses Orde r Schedule REQUEST FOR VENOUS DUPLEX LEG BILATERAL (DX: LEG EDEMA R60.0) WITHIN 24 HOURS NON-FC cardiovascular Routine Ordered: 017 documented as of this encounter Visit Diagnoses Not on filedocumented in this encounter Additional Health Concerns Infection Onset Date Last Indicated Resolved Time COVID-19 Rule-Out 01/05/2021 01/05/2021 01/06/2021 11:16 AM EDT documented as of this encounter Care Teams Dealer Sales Manager Relationship Specialty Start Date End Date Baldo Parmar MD PCP - General 05/11/12 12/11/17 Ami Osullivan PA-C PCP - Backup PCP Internal Medicine 06/16/15 11/24/17 Elizabet Hair MD PCP - General Family Medicine 12/12/17 02/14/18 Elizabet Hair MD PCP - General 02/15/18 08/15/18 Marybeth Chacon MD PCP - General Internal Medicine 08/16/18 09/02/19 Alfreda Costa DO 4 [place] [address] PCP - General Internal Medicine 09/03/19 Leela Nieto NP 4 [place] [address] PCP - Backup PCP Internal Medicine 09/03/19 11/17/22 documented as of this encounter
--- OUTSIDE RECORDS SUMMARY | 2024-06-25 19:20 | XMS_ITS | Encounter Summary ---
Demographics Address [address] [place] [address] Mobile Phone Home Phone Email Address Preferred Language Namibian Marital Status Islam Affiliation Unknown Race White Ethnic Group Unknown Author Organization [facility] Address [address] [place] [address] Support Name Relationship Address Phone [place] Haas Emergency Contact [address] [place] [address] Shana Danielle Emergency Contact [address] [place] [address] Care Team Providers Care Garbage Depot Worker Name Role Phone Alfreda Costa DO Primary Care Provider [phone] Leela Nieto CHAINSTITCH SEAT JOINER Unavailable Unavailable Reason for Visit * Reason Comments Other Encounter Details Date Type Department Care Team (Late st Contact Info) Description 02/18/2021 Telephone [facility] [address] [place] [phone] Alfreda Costa DO [address] [place] [address] Other Social History Tobacco Use Types Packs/Day Years [...] encounter Miscellaneous Notes * Telephone Encounter - Arcadio [place] - 02/18/2021 9:46 AM EDT No recent message from PCP office but pt informed she has an echo scheduled for 02/27 she was unaware was booked. Pt also advised she can call radiology to schedule CT Chest ordered on 01/21 for 3 mo f/u. Pt had questions about her insurance and scheduled mammogram on 07/13. Advised pt she can call the radiology dept to see if exam is approved by her insurance. Pt had no other questions at this time. * Telephone Encounter - King September - 02/18/2021 9:34 AM EDT Patient is insisting that a nurse from Dr. Costa's office called her documented in this encounter Plan of Treatment Upcoming Encounters Date Type Department Care Team (Late st Contact Info) Description 06/27/2024 11:00 AM EST Office Visit [facility] [address] [place] [address] Deanne Ibarra PA 4 [place] [address] U 08/16/2024 10:25 AM EDT CPE - Comprehensive Physical Exam [facility] [address] [place] [address] Alfreda Costa DO 4 [place] [address] Physical - [facility] 02/27/2025 1:15 PM EST Radiology [facility]. Mammography [address] [place] [address] documented as of this encounter Visit Diagnoses Not on filedocumented in this encounter Care Teams Garbage Depot Worker Relationship Specialty Start Date End Date Alfreda Costa DO 4 [place] [address] PCP - General Internal Medicine 09/03/19 Leela Nieto NP [address] [place] [address] PCP - Backup PCP Internal Medicine 09/03/19 11/17/22 documented as of this encounter
--- OUTSIDE RECORDS SUMMARY | 2024-06-25 19:20 | XMS_ITS | Encounter Summary ---
Demographics Address [address] [place] [address] Mobile Phone Home Phone Email Address [email or web address] Preferred Language Jamaican Marital Status Presybeterian Affiliation Unknown Race White Ethnic Group Unknown Author Organization [facility] Address [address] [place] [address] Support Name Relationship Address Phone [place] Paz Germain Emergency Contact 2 [address] [place] [address] Shana Danielle Emergency Contact [address] [place] [address] Care Team Providers Care Factory Focus Technician Name Role Phone Baldo Parmar MD Primary Care Provider Unavaila Ami Ansari-C Unavailable Unavailab Elizabet Hawthorne MD Primary Care Provider [phone] Elizabet Hair MD Primary Care Provider [phone] Marybeth Chacon MD Primary Care Provider [phone] Alfreda Costa DO Primary Care Provider [phone] Leela Nieto ELECTRONICS MECHANIC APPRENTICE Unavailable Unavailable Encounter Details Date Type Department Care Team (Late st Contact Info) Description 12/05/2012 Orders Only [facility] Endocrinology [address] [place] [phone] Marcy David MD [facility] [address] [address] Social History Tobacco Use Types Packs/Day Years [...] as of this encounter Progress Notes * Marcy David - 12/06/2012 5:59 AM EDTQuick Note: [place] FNa 12/12/12 documented in this encounter Plan of Treatment Upcoming Encounters Date Type Department Care Team (Late st Contact Info) Description 06/27/2024 11:00 AM EST Office Visit [facility] [address] [place] [address] Deanne Ibarra PA [address] [place] [address] HFU 08/16/2024 10:25 AM EDT CPE - Comprehensive Physical Exam [facility] [address] [place] [address] Alfreda Costa DO 4 [place] [address] Physical - [facility]ENT [facility] 02/27/2025 1:15 PM EST Radiology [facility]. Mammography [address] [place] [address] documented as of this encounter Procedures * Due to [place] Restore [employer] law, this organization might not be sharing negative HIV tests. Procedure Name Priority Date/Time Associated Diagnosis Comments US GUIDANCE FOR NEEDLE BIOPSY Routine 12/12/2012 3:40 PM EDT ACTIVATED PARTIAL THROMBOPLASTIN TIME (APTT), PLASMA Routine 12/05/2012 3:25 PM EDT Screening for cardiovascular condition PROTHROMBIN TIME (PT) (INR), BLOOD Routine 12/05/2012 3:25 PM EDT Screening for cardiovascular condition documented in this encounter Results * Due to [place] [employer]ore [employer] law, this organization might not be sharing negative HIV tests. * US GUIDANCE FOR NEEDLE BIOPSY (12/12/2012 3:40 PM EDT) RADIOLOGY REPORT [facility] Department of Radiology [address] [place] [address], [place], [address] Name: DOROTHY SILVEIRA : 64 Date of Service: 12/12/12 1541 Acct Number: [id number] Order Number: ??[id number] ?Location: [facility] Report Number: [id number] ?Service: REG REF/ Requesting Physician: Marcy David ([facility]) Category: ULTRASOUND ??[facility] Exam: NEEDLE PLACE ?? Signs/Symptoms: MULTINODULAR GOITER Report Status: Signed Procedures: 1. ??Ultrasound-guided fine needle aspiration of a left isthmic thyroid nodule 2. ??Ultrasound-guided fine needle aspiration of a right lower pole thyroid nodule Technique: Written and oral consent was obtained prior to the procedure. ??Preliminary sonographic interrogation demonstrates a left neck nodule which is heterogeneous and partially cystic containing multiple microcalcifications measuring 1.9 x 1.3 x 0.8 cm in size. ??There is also a right lower pole thyroid nodule which is also heterogeneous with possible small cystic spaces also containing microcalcifications measuring 1.5 x 1.0 x 0.9 cm in size. Attention was first directed to the left neck. ??The overlying skin was prepped and draped in the usual sterile fashion. ??Full-stop time-was performed for patient, site and site verification. Local anesthesia was achieved with a 2% lidocaine solution. ??The ultrasound probe was placed in the left neck. ??Under ultrasound guidance, five 25-gauge FNA samples of the left isthmic thyroid nodule were obtained without difficulty. Following this, attention was then directed to the contralateral right neck. ??The overlying skin was prepped and draped in the usual sterile fashion. ??Full-stop time-was performed for patient, site and site verification. Local anesthesia was achieved with a 2% lidocaine solution. ??The ultrasound probe was placed in the right neck. ??Under ultrasound guidance, five 25-gauge FNA samples of the right lower pole thyroid nodule were obtained without difficulty. The patient tolerated the procedure well. ??There are no immediate complications. ??The patient left the department in good condition with appropriate instructions. Impression: 1. ??Successful ultrasound-guided fine needle aspiration of a 1.9-cm left isthmic thyroid nodule containing microcalcifications. 2. ??Successful ultrasound-guided fine needle aspiration of a 1.5-cm right lower pole thyroid nodule containing microcalcifications. 3. ??Given that both nodules contain multiple microcalcifications, if either sample is non-diagnostic, repeat ultrasound-guided fine needle aspiration should be performed. residential advisor: Shannon Gar MD Interpreting Resident: Date/Time of Dictation: 12/12/12 1540 Approved Electronically By/Date: Deon Mehta 12/12/12 1548 [facility] Department of Radiology [address] [place] [address], [address] ? [phone] ? [facility] RAD Anatomical Region Laterality Modality Other 12/12/2012 3:40 PM EDT Narrative 12/12/2012 3:48 PM EDT Reason for Study/History: Department of Radiology TEST(S) PROCESSED BY [facility] XRAY Marcy David MD IMAGING-[facility] Final Result * ACTIVATED PARTIAL THROMBOPLASTIN TIME (APTT), PLASMA (12/05/2012 3:25 PM EDT) Thromboplastin Time 26 22 - 34 sec [facility] Comment: {PARTIAL THROMBOPLASTIN TIME, ACTIVATED {[id number]) The therapeutic range for unfractionated heparin therapy is 1.5-2.5 times the mean of the reference interval. In patients in whom there is an apparent heparin resistance, a heparin level by an anti-Xa method is available. 12/05/2012 3:25 PM EDT 12/05/2012 6:48 PM EDT Narrative Resulting Agency Comment [id number] Marcy David MD LAB SAME DAY RESULT Final Resu lt Performing Organization Address [facility] Co de Phone Number [facility] [address] [place] [address] * PROTHROMBIN TIME (PT) (INR), BLOOD (12/05/2012 3:25 PM EDT) INR 0.9 [facility] Comment: {INR {[id number]) Reference Range ? 0.9-1.1 Moderate-intensity Warfarin Therapy 2.0-3.0 Higher-intensity Warfarin Therapy ?? 3.0-4.0 PT 9.4 9.0 - 11.5 sec [facility] Comment:{PT {[id number]) 12/05/2012 3:25 PM EDT 12/05/2012 6:48 PM EDT Narrative Resulting Agency Comment [id number] Marcy David MD LAB SAME DAY RESULT Final Resu lt Performing Organization Address [facility] de Phone Number [facility] [address] [place] [address] documented in this encounter Visit Diagnoses Diagnosis Screening for cardiovascular condition Screening for other and unspecified cardiovascular conditions documented in this encounter Additional Health Concerns Infection Onset Date Last Indicated Resolved Time COVID-19 Rule-Out 01/05/2021 01/05/2021 01/06/2021 11:16 AM EDT documented as of this encounter Care Teams Factory Focus Technician Relationship Specialty Start Date End Date Baldo Parmar MD PCP - General 05/11/12 12/11/17 Ami Osullivan PA-C PCP - Backup PCP Internal Medicine 06/16/15 11/24/17 Elizabet Hair MD PCP - General Family Medicine 12/12/17 02/14/18 Elizabet Hair MD PCP - General 02/15/18 08/15/18 Marybeth Chacon MD PCP - General Internal Medicine 08/16/18 09/02/19 Alfreda Costa DO [address] [place] [address] PCP - General Internal Medicine 09/03/19 Leeal Nieto NP [address] [place] [address] PCP - Backup PCP Internal Medicine 09/03/19 11/17/22 documented as of this encounter
--- OUTSIDE RECORDS SUMMARY | 2024-06-25 19:20 | XMS_ITS | Encounter Summary ---
Demographics Address [address] [place] [address] Mobile Phone Home Phone Email Address Preferred Language Wallisian Marital Status Pentecostalism Affiliation Unknown Race White Ethnic Group Unknown Author Organization [facility] Address [address] [place] [address] Support Name Relationship Address Phone [place] Haas Emergency Contact 2 [address] [place] [address] Shana Danielle Emergency Contact [address] [place] [address] Care Team Providers Care Bradley Linebacker Crewmember Name Role Phone Baldo Parmar MD Primary Care Provider Unavaila Ami Ansari-C Unavailable Unavailab Elizabet Hawthorne MD Primary Care Provider [phone] Elizabet Hair MD Primary Care Provider [phone] Marybeth Chacon MD Primary Care Provider [phone] Alfreda Costa DO Primary Care Provider [phone] Leela Nieto BAR TACKER Unavailable Unavailable Encounter Details Date Type Department Care Team ([facility] Contact Info) Description 06/30/2016 Orders Only [facility] [address] [place] [phone] Baldo Parmar MD Social History Tobacco Use [...] Description 06/27/2024 11:00 AM EST Office Visit [facility] [address] [place] [phone] Deanne Ibarra PA [address] [place] [address] HFU 08/16/2024 10:25 AM EDT CPE - Comprehensive Physical Exam [facility] [address] [place] [phone] Alfreda Costa DO [address] [place] [address] Physical - LETTER SENT TO [facility] 02/27/2025 1:15 PM EST Radiology [address] Mammography [address] [place] [address] documented as of this encounter Visit Diagnoses Diagnosis Screening for colorectal cancer Special screening for malignant neoplasms, colon documented in this encounter Additional Health Concerns Infection Onset Date Last Indicated Resolved Time COVID-19 Rule-Out 01/05/2021 01/05/2021 01/06/2021 11:16 AM EDT documented as of this encounter Care Teams Bradley Linebacker Crewmember Relationship Specialty Start Date End Date Baldo Parmar MD PCP - General 05/11/12 12/11/17 Ami Osullivan PA-C PCP - Backup PCP Internal Medicine 06/16/15 11/24/17 Elizabet Hair MD PCP - General Family Medicine 12/12/17 02/14/18 Elizabet Hair MD PCP - General 02/15/18 08/15/18 Marybeth Chacon MD PCP - General Internal Medicine 08/16/18 09/02/19 Alfreda Costa DO [address] [place] [address] PCP - General Internal Medicine 09/03/19 Leela Nieto NP [address] [place] [address] PCP - Backup PCP Internal Medicine 09/03/19 11/17/22 documented as of this encounter
--- OUTSIDE RECORDS SUMMARY | 2024-06-25 19:20 | XMS_ITS | Encounter Summary ---
Demographics Address [address] [place] [address] Mobile Phone Home Phone Email Address [email or web address] Preferred Language Liberian Marital Status Quaker Affiliation Unknown Race White Ethnic Group Unknown Author Organization [facility] Address [address] [place] [address] Support Name Relationship Address Phone Houston Haas Emergency Contact [address] [place] [address] Shana Danielle Emergency Contact [address] [place] [address] Care Team Providers Care Home Care Liaison Name Role Phone Alfreda Costa DO Primary Care Provider [phone] Leela Nieto A AUXILIARY Unavailable Unavailable Reason for Referral * OUTPT P&D-MED SOLUTIONS (Routine) - Closed Specialty Diagnoses / Procedures Referred By Contac t Referred To Contact Magnetic Resonance Imaging Diagnoses Encounter for screening for malignant neoplasm of breast, unspecified screening modality Procedures MRI BREASTS BILATERAL W AND W/O CONTRAST FC Alfreda Costa DO [address] [place] [address] Phone: tel: fax: Referral ID Status Reason Start Date Expiration Date V isits Requested Visits Authorized [id number] Closed Specialty Services Required 06/27/2020 07/26/2020 1 1 Reason for Visit * Reason Comments Cancellation Encounter Details Date Type Department Care Team (Late st Contact Info) Description 05/20/2020 Telephone [facility] Magnetic Resonance Imaging [address] [place] [id number] Alfreda Costa DO [address] [place] [address] Cancellation Social History Tobacco Use Types Packs/Day Years [...] have Coronavirus / COVID-19? No / Unsure 05/20/2020 11:05 AM EST documented as of this encounter Miscellaneous Notes * Telephone Encounter - Lashay Richard - 05/20/2020 12:00 PM EST To PCP to sign new pended order if correct- To Radiology to schedule patient- * Telephone Encounter - Staci Manrique - 05/20/2020 11:25 AM EST This patient had to cancel due to a in her family. She did try to reschedule and there was nothing available until after the order expiration date. She would like to have this done near July 2020 and we have advised her to reach out to your office to get a new order in place at that time. Thank You Radiology Scheduling Dept documented in this encounter Plan of Treatment Upcoming Encounters Date Type Department Care Team (Late st Contact Info) Description 06/27/2024 11:00 AM EST Office Visit [facility] 4 [place] [address] Deanne Ibarra PA [address] [place] [address] [facility] 08/16/2024 10:25 AM EDT CPE - Comprehensive Physical Exam [facility] [address] [place] [phone] Alfreda Costa DO [address] [place] [address] Physical - LETTER SENT TO [facility] 02/27/2025 1:15 PM EST Radiology [facility]. Mammography [address] [place] [address] documented as of this encounter Results * Due to [place] state law, this organization might not be sharing negative HIV tests. * MRI BREASTS BILATERAL W AND W/O CONTRAST FC (07/24/2020 12:28 PM EDT) Anatomical Region Laterality Modality BREAST Bilateral Magnetic Resonan ce Impressions 07/28/2020 10:13 AM EDT : No MRI evidence of malignancy. BI-RADS: ?? - 1 Negative (overall) RECOMMENDATION: ? - Breast MRI in 1 Year for both breasts. Narrative 07/28/2020 10:13 AM EDT EXAMINATION: MRI of the breasts with and without contrast HISTORY: High risk screening for breast cancer COMPARISON: Comparison is made to prior breast MRI's TECHNIQUE: ??Multiplanar imaging was performed through the breasts using routine breast mass protocol. 7 cc of intravenous Multihance was administered for the dynamic portion of the study. The examination was interpreted with the aid of a computer aided detection system FINDINGS: BREAST COMPOSITION: ??The breasts have heterogeneous fibroglandular tissue. Background enhancement: The background parenchymal enhancement is mild. Right breast: No morphologically suspicious masses or suspicious areas of contrast enhancement are seen within the right breast Left breast: No morphologically suspicious masses or suspicious areas of contrast enhancement are seen within the left breast Secondary findings: There is no axillary lymphadenopathy or skin thickening Alfreda Costa DO IMG MR WITH CONTRAST ORDERABLES Final Result documented in this encounter Visit Diagnoses Diagnosis Encounter for screening for malignant neoplasm of breast, unspecified screening modality Encounter for screening for malignant neoplasm of breast, unspecified screening modality documented in this encounter Additional Health Concerns Infection Onset Date Last Indicated Resolved Time COVID-19 Rule-Out 01/05/2021 01/05/2021 01/06/2021 11:16 AM EDT documented as of this encounter Care Teams Home Care Liaison Relationship Specialty Start Date End Date Alfreda Costa DO [address] [place] [place] [address] PCP - General Internal Medicine 09/03/19 Leela Nieto NP [address] [place] [place] [address] PCP - Backup PCP Internal Medicine 09/03/19 11/17/22 documented as of this encounter
--- OUTSIDE RECORDS SUMMARY | 2024-06-25 19:20 | XMS_ITS | Encounter Summary ---
Demographics Address [address] [place] [address] Mobile Phone Home Phone Email Address Preferred Language Citizen Of [place] Marital Status Spiritism Affiliation Unknown Race White Ethnic Group Unknown Author Organization [facility] Address [address] [place] [address] Support Name Relationship Address Phone [place] Haas Emergency Contact [address] [place] [address] Shana Danielle Emergency Contact [address] [place] [address] Care Team Providers Care Therapist Phys Name Role Phone Baldo Parmar MD Primary Care Provider Unavaila Ami Ansari-Megan Unavailable Unavailab Elizabet Hawthorne MD Primary Care Provider [phone] Elizabet Hair MD Primary Care Provider [phone] Marybeth Chacon MD Primary Care Provider [phone] Alfreda Costa DO Primary Care Provider [phone] Leela Nieto APN Unavailable Unavailable Encounter Details Date Type Department Care Team (Late st Contact Info) Description 07/21/2017 Orders Only [facility] Orthopedic Surgery [address] [facility] [address] [place] [address] Ahmet Christie MD [address] [facility] [address] [place] [address] Social History Tobacco Use Types Packs/Day Years [...] Description 06/27/2024 11:00 AM EST Office Visit [facility] 4 [place] [phone] Deanne Ibarra PA 4 [place] [address] [facility] 08/16/2024 10:25 AM EDT CPE - Comprehensive Physical Exam [facility] 4 [place] [phone] Alfreda Costa DO 4 [place] [address] Physical - [facility] 02/27/2025 1:15 PM EST Radiology [facility]. [facility] 5 [place] [phone] documented as of this encounter Results * Due to [place] state law, this organization might not be sharing negative HIV tests. * XRAY SHOULDER COMPLETE MIN 2 VWS - RIGHT FC (07/26/2017 2:31 PM EDT) Anatomical Region Laterality Modality UPPER EXTREMITY Computed Radiogr aphy 07/27/2017 9:04 PM EDT Narrative 07/27/2017 9:04 PM EDT 3 views of the right shoulder Comparison: None Findings: Normal right glenohumeral joint. ??No fractures. ??Normal alignment. ?? Normal soft tissues. ??Normal right acromioclavicular joint. Impression: Normal right shoulder. Procedure Note Cal Gray MD - 07/27/2017 3 views of the right shoulder Comparison: None Findings: Normal right glenohumeral joint. No fractures. Normalalignment. Normal soft tissues. Normal right acromioclavicular joint. Impression: Normal right shoulder. us Ahmet Christie MD IMG XRAY NO CONTRAST ORDERAB LES Final Result documented in this encounter Visit Diagnoses Diagnosis Chronic right shoulder pain Pain in joint, shoulder region Bilateral hip pain Pain in joint, pelvic region and thigh Chronic right shoulder pain Pain in joint, shoulder region documented in this encounter Additional Health Concerns Infection Onset Date Last Indicated Resolved Time COVID-19 Rule-Out 01/05/2021 01/05/2021 01/06/2021 11:16 AM EDT documented as of this encounter Care Teams Therapist Phys Relationship Specialty Start Date End Date Baldo Pamrar MD PCP - General 05/11/12 12/11/17 Ami Osullivan, LAURITAC PCP - Backup PCP Internal Medicine 06/16/15 11/24/17 Elizabet Hair MD PCP - General Family Medicine 12/12/17 02/14/18 Elizabet Hair MD PCP - General 02/15/18 08/15/18 Marybeth Chacon MD PCP - General Internal Medicine 08/16/18 09/02/19 Alfreda Costa DO [address] [place] [address] PCP - General Internal Medicine 09/03/19 Leela Nieto NP [address] [place] [address] PCP - Backup PCP Internal Medicine 09/03/19 11/17/22 documented as of this encounter
--- OUTSIDE RECORDS SUMMARY | 2024-06-25 19:20 | XMS_ITS | Encounter Summary ---
Demographics Address [address] [place] [address] Mobile Phone Home Phone Email Address [email or web address] Preferred Language Ivorian Marital Status Quaker Affiliation Unknown Race White Ethnic Group Unknown Author Organization [facility] Address [address] [place] [address] Support Name Relationship Address Phone Houston Jangain Emergency Contact [address] [place] [address] Shana Danielle Emergency Contact [address] [place] [address] Care Team Providers Care Art Consultant Name Role Phone Baldo Parmar MD Primary Care Provider Unavaila Ami Ansari-C Unavailable Unavailab Elizabet Hawthorne MD Primary Care Provider [phone] Elizabet Hair MD Primary Care Provider [phone] Marybeth Chacon MD Primary Care Provider [phone] Alfreda Costa DO Primary Care Provider [phone] Leela Nieto [employer] PROGRAM DIRECTOR Unavailable Unavailable Encounter Details Date Type Department Care Team ([facility] Contact Info) Description 11/24/2011 Orders Only [facility] [address] [place] [phone] Baldo Parmar MD Social History Tobacco Use [...] Description 06/27/2024 11:00 AM EST Office Visit [facility] 4 [facility] [phone] Deanne Ibarra PA [address] [place] [address] HFU 08/16/2024 10:25 AM EDT CPE - Comprehensive Physical Exam [facility] [address] [place] [phone] Alfreda Costa DO 4 [place] [address] Physical [facility] 02/27/2025 1:15 PM EST Radiology [facility]. Mammography [address] [place] [phone] documented as of this encounter Procedures * Due to [place] GTxcel law, this organization might not be sharing negative HIV tests. Procedure Name Priority Date/Time Associated Diagnosis Comments BORRELIA BURGDORFERI AB (LYME), EIA WITH REFLEX IGG, IGM WB Routine 11/24/2011 2:36 PM EDT Fatigue CBC INCLUDES DIFFERENTIAL AND PLATELET COUNT Routine 11/24/2011 2:36 PM EDT Fatigue FOLATE, SERUM Routine 11/24/2011 2:36 PM EDT Fatigue VITAMIN B12 (CYANOCOBALAMIN), SERUM Routine 11/24/2011 2:36 PM EDT Fatigue VITAMIN D, 25-HYDROXY, TOTAL, IMMUNOASSAY Routine 11/24/2011 2:36 PM EDT Fatigue documented in this encounter Results * Due to [place] GTxcel law, this organization might not be sharing negative HIV tests. * VITAMIN D, 25-HYDROXY, LC/MS/MS (11/24/2011 2:36 PM EDT) Vitamin D, 25-OH, Total 44 30 - 100 ng/mL [employer] Comment:{VITAMIN D, 25 OH, T OTAL {[id number]) Vitamin D, D3 (Cholecalciferol ) 44 ng/mL [facility] Comment:{VITAMIN D, 25 OH, D 3 {[id number]) Vitamin D, 25-OH, D2 (Calciferol) <4 ng/mL [facility] Comment: {VITAMIN D, 25 OH, D2 {[id number]) ? 25-OHD3 indicates both endogenous production and ? supplementation. 25-OHD2 is an indicator of exogenous ? sources such as diet or supplementation. Therapy is based on ? measurement of Total 25-OHD, with levels <20 ng/mL indicative ? of Vitamin D deficiency, while levels between 20 ng/mL and ? 30 ng/mL suggest insufficiency. Optimal levels are ? > or = 30 ng/mL. 11/24/2011 2:36 PM EDT 11/24/2011 10:24 PM EDT Narrative Resulting Agency Comment [id number] Baldo Parmar MD LABORATORY Final Result Performing Organization Address City/State/[facility] Co de Phone Number [facility] [address] [place] [address] * FOLATE, SERUM (11/24/2011 2:36 PM EDT) Folate 17.8 ng/mL [facility] Comment: {FOLATE, SERUM {[id number]) ? Reference Range ? Low: ? <3.4 ? Borderline: ?3.4-5.4 ? Normal: ?>5.4 11/24/2011 2:36 PM EDT 11/24/2011 10:24 PM EDT Narrative Resulting Agency Comment [id number] Baldo Parmar MD LABORATORY Final Result Performing Organization Address [facility] de Phone Number [facility] [address] [place] [address] * VITAMIN B12 (CYANOCOBALAMIN), SERUM (11/24/2011 2:36 PM EDT) Vitamin B12 (Cobalamins) 574 200 - 1100 pg/mL [facility] Comment:{VITAMIN B12 {[id number]) 11/24/2011 2:36 PM EDT 11/24/2011 10:24 PM EDT Narrative Resulting Agency Comment [id number] Baldo Parmar MD LABORATORY Final Result Performing Organization Address [facility] de Phone Number [facility] [address] [place] [address] * BORRELIA BURGDORFERI AB (LYME), EIA WITH REFLEX IGG, IGM WB (11/24/2011 2:36 PM EDT) Pathologist [facility] Borrelia burgdorferi Ab < OR = 0.90 index [facility] Comment: {LYME AB SCREEN {[id number]) Index ? Interpretation < or = 0.90 ? Negative 0.91-1.09 ? Equivocal > or = 1.10 ? Positive As recommended by the Food and Drug Administration (FDA), all samples with positive or equivocal results in the Borrelia burgdorferi antibody EIA (screening) will be tested by Western Blot. Positive or equivocal screening test results should not be interpreted as truly positive until verified as such using a confirmatory assay (e.g., B. burgdorferi Western Blot). The screening test and/or Western Blot for B. burgdorferi antibodies may be falsely negative in early stages of Lyme disease, including the period when erythema migrans is apparent. 11/24/2011 2:36 PM EDT 11/24/2011 10:24 PM EDT Narrative Resulting Agency Comment [id number] us Baldo Parmar MD LABORATORY Final Result [facility] [address] [place] [address] * CBC INCLUDES DIFFERENTIAL AND PLATELET COUNT (11/24/2011 2:36 PM EDT) WBC 8.5 3.8 - 10.8 Thousand/u L [facility] Comment:{WHITE BLOOD CELL CO UNT {[id number]) RBC 4.59 3.80 - 5.10 Million/uL [facility] Comment:{RED BLOOD CELL COUN T {[id number]) Hemoglobin 13.4 11.7 - 15.5 g/dL [facility] Comment:{HEMOGLOBIN {[id number]) Hematocrit 40.6 35.0 - 45.0 % [facility] Comment:{HEMATOCRIT {[id number]) MCV 88.4 80.0 - 100.0 fL [facility] Comment:{MCV {[id number]) MCH 29.3 27.0 - 33.0 pg [facility] Comment:{MCH {[id number]) MCHC 33.1 32.0 - 36.0 g/dL [facility] Comment:{MCHC {[id number]) RDW 13.4 11.0 - 15.0 % [facility] Comment:{RDW {[id number]) PLT 282 140 - 400 Thousand/u L [facility] Comment:{PLATELET COUNT {[id number]) MPV 8.5 7.5 - 11.5 fL [facility] Comment:{MPV {[id number]) Neutrophils # 4769 1500 - 7800 cells/uL [facility] Comment:{ABSOLUTE NEUTROPHIL S {[id number]) Lymphocytes # 2992 850 - 3900 cells/uL [facility] Comment:{ABSOLUTE LYMPHOCYTE S {[id number]) Monocytes # 629 200 - 950 cells/uL [facility] Comment:{ABSOLUTE MONOCYTES {[id number]) Eosinophils # 51 15 - 500 cells/uL [facility] Comment:{ABSOLUTE EOSINOPHIL S {[id number]) Basophils # 60 0 - 200 cells/uL [facility] Comment:{ABSOLUTE BASOPHILS {[id number]) Neutrophils % 56.1 % [facility] Comment:{NEUTROPHILS {[id number]) Lymphocytes % 35.2 % [facility] Comment:{LYMPHOCYTES {[id number]) Monocytes % 7.4 % [facility] Comment:{MONOCYTES {[id number]) Eosinophils % 0.6 % [facility] Comment:{EOSINOPHILS {[id number]) Basophils % 0.7 % [facility] Comment:{BASOPHILS {[id number]) 11/24/2011 2:36 PM EDT 11/24/2011 10:24 PM EDT Narrative Resulting Agency Comment [id number] us Baldo Parmar MD LAB SAME DAY RESULT Final Resul t [facility] [address] [place] [address] documented in this encounter Visit Diagnoses Diagnosis Fatigue Other malaise and fatigue documented in this encounter Additional Health Concerns Infection Onset Date Last Indicated Resolved Time COVID-19 Rule-Out 01/05/2021 01/05/2021 01/06/2021 11:16 AM EDT documented as of this encounter Care Teams Art Consultant Relationship Specialty Start Date End Date Baldo Parmar MD PCP - General 05/11/12 12/11/17 Ami Osullivan PA-C PCP - Backup PCP Internal Medicine 06/16/15 11/24/17 Elizabet Hair MD PCP - General Family Medicine 12/12/17 02/14/18 Elizabet Hair MD PCP - General 02/15/18 08/15/18 Marybeth Chacon MD PCP - General Internal Medicine 08/16/18 09/02/19 Alfreda Costa DO [address] [place] [address] PCP - General Internal Medicine 09/03/19 Leela Nieto NP [address] [place] [address] PCP - Backup PCP Internal Medicine 09/03/19 11/17/22 documented as of this encounter
--- OUTSIDE RECORDS SUMMARY | 2024-06-25 19:21 | XMS_ITS | Encounter Summary ---
Demographics Address [address] [place] [address] Home Phone Mobile Phone Email Address [email or web address] Preferred Language Saudi Arabian Marital Status /Civil Union Jain Affiliation Unknown Race White Ethnic Group Not or Lati no Author Organization [facility] Address [phone] [facility] [place] [address] Care Team Providers Care Software Packager Name Role Phone Alfreda Costa DO Primary Care Provider Encounter Details Date Type Department Care Team (Late st Contact Info) Description 11/26/2022 Procedure Pass [facility] Echocardiography [address] [place] [address] Social History Tobacco Use Types Packs/Day Years Used Date Smoking Tobacco: Never Smokeless Tobacco: Never Alcohol Use Standard Drinks/Week Comments Never 0 (1 standard drink = 0.6 oz pur e alcohol) Education Answer Date Recorded Are you interested in more education? Not on jett e 10/13/2022 Are you concerned about learning? Not on file 10/13/2022 No 10/13/2022 No 10/13/2022 Digital Access Answer Date Recorded No 10/13/2022 No 10/13/2022 Reliable internet access at home? Not on file 10/13/2022 Device with a working camera? Not on file Intimate Partner Violence Answer Date R ecorded Are you denied basic needs s uch as food, clothing, or medical care? No 11/26/2022 In the past 12 months have y ou been in a relationship with a person who hurts, threatens, or tries to control you? No 11/26/2022 Are you denied basic needs s uch as food, clothing, or medical care? No 11/26/2022 In the past 12 months have y ou been in a relationship with a person who hurts, threatens, or tries to control you? No 11/26/2022 Sex and Gender Information Value Date Recorded Sex Assigned at Female 10/12/2022 4:45 PM EDT Gender Identity Female 10/12/2022 4:45 PM EDT Sexual Orientation Straight 10/12/2022 4: 45 PM EDT documented as of this encounter Plan of Treatment Not on file documented as of this encounter Visit Diagnoses Not on filedocumented in this encounter Additional Health Concerns Assessment Noted Time PHQ-2 Depression Total Score: 0 11/25/19 12:22 PM EDT documented as of this encounter Care Teams Software Packager Relationship Specialty Start Date End Date Alfreda Costa DO [address] [place] [address] [email or web address] PCP - General Internal Medicine 10/12/22 documented as of this encounter Additional Source Comments The information contained in this document represents components of the legal health record. It is not the complete legal health record.[facility]
--- OUTSIDE RECORDS SUMMARY | 2024-06-25 19:21 | XMS_ITS | Clinical Summary ---
Demographics Address [address] [place] [address] Home Phone Mobile Phone Email Address [email or web address] Preferred Language Tajik Marital Status /Civil Union Congregation Affiliation Unknown Race White Ethnic Group Not or Lati no Author Organization [facility] Address [phone] [place] [address] Care Team Providers Care Vp Global Name Role Phone Alfreda Costa DO Primary Care Provider [phone] Allergies Active Allergy Reactions Criticality Noted Date Comments Ampicillin Rash Low 07/06/2006 Sulfamethoxazole-Trimet hoprim Maculopapular Rash Medium 11/27/2022 Cephalexin Rash Low 07/06/2006 Oxycodone 11/22/2022 Other reaction(s): Pruritus (itching) Penicillin G Potassium Rash Low 07/06/2006 Medications Medication Sig Dispensed Refills Start Date End Date Status atorvastatin (LIPITOR) 40 MG tablet Take 40 mg by mouth daily. 02/01/2022 Active dextroamphetamine-a mphetamine (ADDERALL) 30 mg Tab tablet Take 1 tablet by mouth 2 (two) times a day. 09/15/2022 Active DULoxetine (CYMBALTA) 60 MG capsule Take 2 capsules by mouth every morning. 10/13/2022 Active lamoTRIgine (LAMICTAL) 200 MG IMMEDIATE release tablet Take 200 mg by mouth 3 (three) times a day. 08/09/2022 Active traZODone (DESYREL) 150 MG tablet Take 150 mg by mouth nightly at bedtime. 07/27/2021 Active senna (SENOKOT) 8.6 mg tablet Take 1 tablet by mouth 2 (two) times a day. Take while requiring narcotic pain medication to prevent constipation. Hold for loose stools. 60 tablet 11/17/2022 Active clobetasol (TEMOVATE) 0.05 % ointment Apply topically 2 (two) times a day. 11/29/2022 Active ibuprofen (ADVIL,MOTRIN) 600 MG tablet Take 1 tablet (600 mg total) by mouth every 6 (six) hours as needed. 11/29/2022 Active Active Problems Problem Noted Date Diagnosed Date Cellulitis 11/26/2022 Lung nodule 11/15/2022 Family History Medical History Relation Comments Prostate cancer Father Lung cancer Maternal Grandfather Breast cancer Maternal Grandmother Relation Status Comments Father Maternal Grandfather Maternal Grandmother Social History Tobacco Use Types Packs/Day Years Used Date Smoking Tobacco: Never Smokeless Tobacco: Never Tobacco Cessation:Counseling Given: Not Answered Alcohol Use Standard Drinks/Week Comments Never 0 [...] Orientation Straight 10/12/2022 4: 45 PM EDT Last Filed Vital Signs Vital Sign Reading Time Taken Comments Blood Pressure 99/59 11/29/2022 8:33 AM EDT Pulse 88 11/29/2022 10:21 AM EDT Temperature 36.4 ??C (97.5 ??F) 11/29/2022 8:33 AM ED T Respiratory Rate 16 11/29/2022 8:33 AM EDT Oxygen Saturation 97% 11/29/2022 8:33 AM EDT Inhaled Oxygen Concentration - - Weight 68.6 kg (151 lb 4.8 oz) 11/27/2022 6:11 A M EDT Height 165.1 cm (5' 5 ) 11/26/2022 7:00 PM EDT Body Mass Index 25.18 11/26/2022 7:00 PM EDT Plan of Treatment Health Maintenance Due Date Last Done Comments LIPID PANEL 1962 HEPATITIS B SCREENING 1980 HIV ONE-TIME SCREENING (18-65 YEARS) 1980 PAP SMEAR 07/09/1983 COLOGUARD 07/09/2007 COLONOSCOPY 07/09/2007 COLORECTAL CANCER SCREENING 07/09/2007 FIT TEST 07/09/2007 FOBT 07/09/2007 SIGMOIDOSCOPY 07/09/2007 VIRTUAL COLONOSCOPY 07/09/2007 PNEUMOCOCCAL VACCINES (50+ years) (1 of 1 - PCV) 2012 MAMMOGRAM 01/17/2020 01/16/2018 INFLUENZA VACCINE (#1) 2023 , 04/11/2020, 12/20/2018, Additional history exists DEPRESSION SCREENING 11/25/2023 11/24/2022 COVID-19 VACCINE ( season) 2023 04/29/2021, 07/26/2020 SCREENING FOR DIABETES 11/29/2025 11/29/2022, 2022 Adult Td,Tdap Booster 06/06/2027 06/06/2017, 007 RSV VACCINE (1 - 1-dose 75+ series) 2037 HEPATITIS C SCREENING Completed 05/26/2018 ZOSTER VACCINES Completed 08/03/2021, 04/11/2020 SMOKING STATUS SCREENING (Once After 26 Yrs) Completed 11/15/2022 HEPATITIS A VACCINES Aged Out No long er eligible based on patient's age to complete this topic HEPATITIS B VACCINES Aged Out No long er eligible based on patient's age to complete this topic HIB VACCINES Aged Out No longer eligi ble based on patient's age to complete this topic MENINGOCOCCAL VACCINES (ACWY) Aged Out No longer eligible based on patient's age to complete this topic Medical Devices Not on file Advance Directives * Full Code (Latest Code Status on File) Date Activated Date Inactivated Comments 11/26/2022 8:13 PM Question Answer Comments Code Status Confirmed With: Patient * Full Code Date Activated Date Inactivated Comments 11/15/2022 2:59 PM 11/26/2022 8:13 PM Question Answer Comments Code Status Confirmed With: Patient Care Teams Vp Global Relationship Specialty Start Date End Date Alfreda Costa DO [address] [place] [id number] [email or web address] PCP - General Internal Medicine 10/12/22 Additional Source Comments The information contained in this document represents components of the legal health record. It is not the complete legal health record.[facility]
--- OUTSIDE RECORDS SUMMARY | 2024-06-25 19:21 | XMS_ITS | Encounter Summary ---
Demographics Address [address] [place] [address] Home Phone Mobile Phone Email Address Preferred Language Niuean Marital Status /Civil Union Scientologist Affiliation Unknown Race White Ethnic Group Not or Lati no Author Organization Located [facility] Address [phone] [facility] [place] [address] Care Team Providers Care Expanding Machine Operator Name Role Phone Alfreda Costa DO Primary Care Provider [phone] Encounter Details Date Type Department Care Team (Late st Contact Info) Description 10/27/2022 Prep for Surgery [facility] Thoracic Surgery [address] [place] [address] [email or web address] Social History Tobacco Use Types Packs/Day Years [...] with a working camera? Not on file Sex and Gender Information Value Date Recorded [...] Noted Time PHQ-2 Depression Total Score: 0 10/23/19 23 12:02 PM EDT documented as of this encounter Care Teams Expanding Machine Operator Relationship Specialty Start Date End Date Alfreda Costa DO [address] [place] [address] [email or web address] PCP - General Internal Medicine 10/12/22 documented as of this encounter Additional Source Comments The information contained in this document represents components of the legal health record. It is not the complete legal health record.[facility]
--- OUTSIDE RECORDS SUMMARY | 2024-06-25 19:21 | XMS_ITS | Referral Summary ---
Demographics Address [address] [place] [address] Mobile Phone Home Phone Preferred Language Kyrgyz Marital Status Yarsanism Affiliation Unknown Race White Ethnic Group Not or Lati no Author Organization [facility] Address [address] [place] [address] Care Team Providers Care Process Inspector Name Role Phone Alfreda Costa Primary Care Provider Encounters Date Type Department Care Team Description 06/20/2024 9:30 AM EST Follow-[facility] [address] [place] [address] Automation Consultant: Herman Michael MD Osteomyelitis of pelvis (CMS/HCC) (HCC) (Primary Dx); Streptococcal bacteremia; Pelvic abscess in female; Antibiotic long-term use 06/08/2024 Lab Requisition [facility] [address] [place] [address] Unknown, Doctor 06/01/2024 11:18 AM EST - 06/08/2024 10:47 PM EST Hospital Encounter [facility] [address] [place] [address] Luz Fisher MD Darling, Chad E, MD Javady, Houman J., MD Dang, Evan N, DO Paudel, Prakash, MD Quarles, Ryan H, MD Lee, Nancy, MD Hematuria (Primary Dx) Discharge Disposition: Inpatient Rehab Facility (IRF) (62) from Last 3 Months Allergies Active Allergy Reactions Criticality Noted Date Comments Ampicillin Rash 07/06/2006 Cephalexin Rash 07/06/2006 Penicillin G Potassium Rash 07/06/2006 Medications lamoTRIgine (LaMICtal) 200 mg tablet Take 200 mg by mouth 2 times a day. 06/13/[address] (CYMBALTA) 60 mg capsule Take 120 mg by mouth daily. 08/01/19 Active dextroamphetam ine-amphetamin e (ADDERALL) 30 mg tablet Take 1 tablet by mouth 2 times a day. 07/02/19 Active clonazePAM (KlonoPIN) 0.5 mg tablet Take 0.5 mg by mouth 3 times a day. 09/06/19 Active atorvastatin (LIPITOR) 40 mg tablet TAKE ONE TABLET (40 MG TOTAL) BY MOUTH 1 (ONE) TIME EACH DAY FOR CHOLESTEROL 07/19/19 Active traZODone (DESYREL) 150 mg tablet Take 150 mg by mouth nightly. Active apixaban (ELIQUIS) 2.5 mg tablet Take 5 mg by mouth every 12 hours. Active 0.9% NaCl 0.9% piggyback 100 mL with cefTRIAXone 2 gram recon soln 2 g Infuse 2 g intravenously every 24 hours for 24 days. 06/09/192024 Active bisacodyL (DULCOLAX) 10 mg suppository Insert 1 suppository (10 mg total) into the rectum daily as needed for constipation. 06/08/19 25 2024 Active docusate sodium (COLACE) 100 mg capsule Take 1 capsule (100 mg total) by mouth 2 times a day. 06/09/192024 Active polyethylene glycol 3350 (MIRALAX) 17 gram packet Take 1 packet (17 g total) by mouth once a day. Mix powder in 4 to 8 oz of water, juice, coffee, or tea prior to administration. 06/09/19 Active senna (SENOKOT) 8.6 mg tablet Take 2 tablets (17.2 mg total) by mouth nightly. 06/08/19 25 2024 Active haloperidoL (HALDOL) 0.5 mg tablet Take 0.5 mg by mouth 2 times daily. 03/29/20 Active cefadroxil (DURICEF) 1 gram tablet Take 1 tablet (1 g total) by mouth 2 times a day for 8 days. 16 tablet 07/05/19 25 2024 Active metroNIDAZOLE (FLAGYL) 500 mg tablet Take 1 tablet (500 mg total) by mouth 2 (two) times a day for 19 days. 38 tablet 06/24/19 25 2024 Active mirtazapine (REMERON) 15 mg tablet Take 15 mg by mouth nightly. 11/01/19 20 2024 Discontinued propranoloL (INDERAL) 10 mg tablet 09/04/19 21 2024 Discontinued metroNIDAZOLE (FLAGYL) 500 mg tablet Take 1 tablet (500 mg total) by mouth every 12 hours for 25 days. 06/08/19 25 2024 Discontinued oxyCODONE IR (ROXICODONE) 5 mg tablet Take 1 tablet (5 mg total) by mouth every 3 hours as needed for pain for up to 5 days. Max Daily Amount: 40 mg 06/08/192024 Active Problems Problem Noted Date Diagnosed Date Osteomyelitis of pelvis ([facility] 06/07/2024 Assessment & Plan (06/08/2024 8:40 AM EST): Streptococcal bacteremia 06/07/2024 Assessment & Plan (06/08/2024 8:40 AM EST): Pulmonary nodules 06/05/2024 Assessment & Plan (06/08/2024 9:34 AM EST): CT chest performed and significant for biapical pleural parenchymal scarring, postsurgical changes from left upper lobe wedge resection, minimal soft tissue thickening in the left upper lobe adjacent to the suture margin, and clustered nodular opacities in left lower lobe concerning for infectious etiology. Patient is endorsing night sweats. Most recent CBC without elevated white blood cell count, patient remaining afebrile vital checks. HIV Ab negative. -Infectious disease consulted Assessment & Plan (06/07/2024 5:47 PM EST): CT chest performed and significant for biapical pleural parenchymal scarring, postsurgical changes from left upper lobe wedge resection, minimal soft tissue thickening in the left upper lobe adjacent to the suture margin, and clustered nodular opacities in left lower lobe concerning for infectious etiology. Patient is endorsing night sweats. Most recent CBC without elevated white blood cell count, patient remaining afebrile vital checks. -Infectious disease consulted -HIV antibodies, negative Assessment & Plan (06/06/2024 7:46 AM EST): CT chest performed and significant for biapical pleural parenchymal scarring, postsurgical changes from left upper lobe wedge resection, minimal soft tissue thickening in the left upper lobe adjacent to the suture margin, and clustered nodular opacities in left lower lobe concerning for infectious etiology. Patient is endorsing night sweats. Most recent CBC without elevated white blood cell count, patient remaining afebrile vital checks. -Infectious disease consulted -HIV antibodies, pending Assessment & Plan (06/05/2024 6:40 PM EST): CT chest performed and significant for biapical pleural parenchymal scarring, postsurgical changes from left upper lobe wedge resection, minimal soft tissue thickening in the left upper lobe adjacent to the suture margin, and clustered nodular opacities in left lower lobe concerning for infectious etiology. Patient is endorsing night sweats. Most recent CBC without elevated white blood cell count, patient remaining afebrile vital checks. -Infectious disease consulted -HIV antibodies, pending Hyperlipidemia 06/05/2024 Assessment & Plan (06/08/2024 8:40 AM EST): -Continue home atorvastatin 40 mg daily Assessment & Plan (06/07/2024 7:50 AM EST): -Continue home atorvastatin 40 mg daily Assessment & Plan (06/06/2024 7:46 AM EST): -Continue home atorvastatin 40 mg daily Assessment & Plan (06/05/2024 6:55 PM EST): -Continue home atorvastatin 40 mg daily Anxiety 06/05/2024 Assessment & Plan (06/08/2024 8:40 AM EST): -Continue home clonazepam 0.5 mg 3 times daily -Continue home lamotrigine 200 mg twice daily -Continue home duloxetine 120 mg daily -Continue home Adderall 30 mg twice daily as needed Assessment & Plan (06/07/2024 7:50 AM EST): -Continue home clonazepam 0.5 mg 3 times daily -Continue home lamotrigine 200 mg twice daily -Continue home duloxetine 120 mg daily -Continue home Adderall 30 mg twice daily as needed Assessment & Plan (06/06/2024 7:46 AM EST): -Continue home clonazepam 0.5 mg 3 times daily -Continue home lamotrigine 200 mg twice daily -Continue home duloxetine 120 mg daily -Continue home Adderall 30 mg twice daily as needed Assessment & Plan (06/05/2024 6:55 PM EST): -Continue home clonazepam 0.5 mg 3 times daily -Continue home lamotrigine 200 mg twice daily -Continue home duloxetine 120 mg daily -Continue home Adderall 30 mg twice daily as needed Thrombocytosis 06/04/2024 Assessment & Plan (06/08/2024 9:33 AM EST): Patient was significant acute thrombocytosis on labs, [...] polycythemia or MPN related primary thrombocytosis. However in order to rule out, will acquire MPN panel. IgG IgM IgA levels negative. vWF antigen and factor 8 ristocetin cofactor WNL. -Hematology consulted -NGS MPN panel, pending Assessment & Plan (06/07/2024 5:47 PM EST): Patient was significant acute thrombocytosis on labs, [...] polycythemia or MPN related primary thrombocytosis. However in order to rule out, will acquire MPN panel. -Hematology consulted -NGS MPN panel, pending -IgG IgM IgA levels, negative -vWF antigen and factor 8 ristocetin cofactor, WNL Assessment & Plan (06/06/2024 7:46 AM EST): Patient was significant acute thrombocytosis on labs, [...] polycythemia or MPN related primary thrombocytosis. However in order to rule out, will acquire MPN panel. -Hematology consulted -NGS MPN panel, pending -IgG IgM IgA levels, pending -vWF antigen and factor 8 ristocetin cofactor, pending -Consider further infectious workup (e.g. HIV) Assessment & Plan (06/05/2024 7:42 AM EST): Patient was significant acute thrombocytosis on labs, [...] polycythemia or MPN related primary thrombocytosis. However in order to rule out, will acquire MPN panel. -Hematology consulted -NGS MPN panel, pending -IgG IgM IgA levels, pending -vWF antigen and factor 8 ristocetin cofactor, pending -Consider further infectious workup (e.g. HIV) Assessment & Plan (06/04/2024 6:20 PM EST): Patient was significant acute thrombocytosis on labs, [...] polycythemia or MPN related primary thrombocytosis. However in order to rule out, will acquire MPN panel. -Hematology consulted -NGS MPN panel, pending -IgG IgM IgA levels, pending -vWF antigen and factor 8 ristocetin cofactor, pending -Consider further infectious workup (e.g. HIV) Anemia 06/04/2024 Assessment & Plan (06/08/2024 8:40 AM EST): Patient with slight but stable anemia, Hgb around 10. Iron studies significant for ferritin of 451, iron concentration 26, iron binding capacity 240, transferrin 192, percent saturation of 11%. Iron studies suggestive of mixed chronic inflammatory and iron deficiency anemia. -Hematology consulted -Venofer IV 5 days, until 06/09 Assessment & Plan (06/07/2024 5:47 PM EST): Patient with slight but stable anemia, Hgb around 10. Iron studies significant for ferritin of 451, iron concentration 26, iron binding capacity 240, transferrin 192, percent saturation of 11%. Iron studies suggestive of mixed chronic inflammatory and iron deficiency anemia. -Hematology consulted -Venofer IV 5 days, until 06/09 Assessment & Plan (06/06/2024 7:46 AM EST): Patient with slight but stable anemia, Hgb around 10. Iron studies significant for ferritin of 451, iron concentration 26, iron binding capacity 240, transferrin 192, percent saturation of 11%. Iron studies suggestive of mixed chronic inflammatory and iron deficiency anemia. -Hematology consulted -Venofer IV 5 days Assessment & Plan (06/05/2024 9:52 AM EST): Patient with slight but stable anemia, Hgb around 10. Iron studies significant for ferritin of 451, iron concentration 26, iron binding capacity 240, transferrin 192, percent saturation of 11%. Iron studies suggestive of mixed chronic inflammatory and iron deficiency anemia. -Hematology consulted -Venofer IV 5 days Assessment & Plan (06/04/2024 6:20 PM EST): Patient with slight but stable anemia, Hgb around 10. Iron studies significant for ferritin of 451, iron concentration 26, iron binding capacity 240, transferrin 192, percent saturation of 11%. Iron studies suggestive of mixed chronic inflammatory and iron deficiency anemia. -Hematology consulted -Venofer IV 5 days Left leg weakness 06/02/2024 Assessment & Plan (06/08/2024 8:40 AM EST): See gait instability and patient summary Assessment & Plan (06/07/2024 7:50 AM EST): See gait instability and patient summary Assessment & Plan (06/06/2024 7:46 AM EST): See gait instability and patient summary Assessment & Plan (06/05/2024 7:42 AM EST): See gait instability and patient summary Assessment & Plan (06/04/2024 8:03 AM EST): See gait instability and patient summary Assessment & Plan (06/03/2024 8:18 AM EST): See gait instability and patient summary Assessment & Plan (06/02/2024 4:45 PM EST): See gait instability and patient summary Hematuria 06/01/2024 Assessment & Plan (06/08/2024 8:40 AM EST): Recently diagnosed with PE due to pulmonary vein thrombosis, patient has been on Eliquis. Patient recently discharged home, noticed hematuria and came to the hospital. Seen by urology, hematuria has stopped and they recommended patient can go back on Eliquis. - High risk for DVT/PE, will resume Eliquis. If she continues having hematuria, she may need IVC filter placement. - Patient was evaluated by urology and was okay to continue the Eliquis - Continue close monitoring. 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 Patient recently discharged home, noticed hematuria and came to the hospital. Seen by urology, hematuria has stopped and they recommended patient can go back on Eliquis. - High risk for DVT/PE, will resume Eliquis. If she continues having hematuria, she may need IVC filter placement. - Patient was evaluated by urology and was okay to continue the Eliquis - Continue close monitoring. 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 Patient recently discharged home, noticed hematuria and came to the hospital. Seen by urology, hematuria has stopped and they recommended patient can go back on Eliquis. - High risk for DVT/PE, will resume Eliquis. If she continues having hematuria, she may need IVC filter placement. - Patient was evaluated by urology and was okay to continue the Eliquis - Continue close monitoring. 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 Patient recently discharged home, noticed hematuria and came to the hospital. Seen by urology, hematuria has stopped and they recommended patient can go back on Eliquis. - High risk for DVT/PE, will resume Eliquis. If she continues having hematuria, she may need IVC filter placement. - Patient was evaluated by urology and was okay to continue the Eliquis - Continue close monitoring. Assessment & Plan (06/04/2024 6:20 PM EST): Recently diagnosed with PE due to pulmonary vein thrombosis, patient has been on Eliquis. Patient recently discharged home, noticed hematuria and came to the hospital. Seen by urology, hematuria has stopped and they recommended patient can go back on Eliquis. - high risk for DVT/PE, will resume Eliquis. If she continues having hematuria, she may need IVC filter placement. - Patient was evaluated by urology and was okay to continue the Eliquis - Continue close monitoring. Assessment & Plan (06/03/2024 3:27 PM EST): Recently diagnosed with PE due to pulmonary vein thrombosis, patient has been on Eliquis. Patient recently discharged home, noticed hematuria and came to the hospital. Seen by urology, hematuria has stopped and they recommended patient can go back on Eliquis. - high risk for DVT/PE, will resume Eliquis. If she continues having hematuria, she may need IVC filter placement. - Patient was evaluated by urology and was okay to continue the Eliquis - Continue close monitoring. Assessment & Plan (06/02/2024 5:27 PM EST): Recently diagnosed with PE due to pulmonary vein thrombosis, patient has been on Eliquis. Patient recently discharged home, noticed hematuria and came to the hospital. Seen by urology, hematuria has stopped and they recommended patient can go back on Eliquis. Plan: high risk for DVT/PE, will resume Eliquis. If she continues having hematuria, she may need IVC filter placement. Patient was evaluated by urology and was okay to continue the Eliquis Continue close monitoring. Pelvic abscess in female 06/01/2024 Assessment & Plan (06/08/2024 1:52 PM EST): Recently been diagnosed with pelvic abscess, 4 cm pelvic abscess status post IR drainage about 2 to 3 days ago. During the hospitalization she had a positive culture with strep intermedius. She is on IV ceftriaxone plus p.o. Flagyl to cover PID/pelvic abscess and bacteremia. End date of antibiotics was set on 06/04. However CT demonstrating residual [...] brevis muscle. Per ortho, no acute intervention. -ID consulted and following - Continue CTX 2g daily - Continue flagyl 500mg BID - Plan for 6wk course abx until 06/23 - Oxycodone 5-7.5mg q3h PRN for moderate-severe [...] outpatient ID team: Outpatient ID attending: Dr Qualres Outpatient ID fellow/DEBBIE: [place] [address] Please follow-up at the ID clinic: Dr. Sutherland 06/20 @ 9:[address] Assessment & Plan (06/07/2024 5:47 PM EST): Recently been diagnosed with pelvic abscess, 4 cm pelvic abscess status post IR drainage about 2 to 3 days ago. During the hospitalization she had a positive culture with strep intermedius. She is on IV ceftriaxone plus p.o. Flagyl to cover PID/pelvic abscess and bacteremia. End date of antibiotics was set on 06/04. However CT demonstrating residual abscess. . Infectious disease consulted. Plan for 2 additional weeks of ceftriaxone and Flagyl . MRI pelvis demonstrating confluent bone marrow edema centered at the pubic symphysis concerning for acute osteomyelitis. Also demonstrating edema involving the pectineus and adductor muscles, in keeping with myositis with small intramuscular abscesses, the largest within the left adductor brevis muscle. -ID consulted and following -Recommending continued ceftriaxone and Flagyl until 06/23 -Oxycodone 5 mg - 10 mg for moderate - severe pain every 3 hours -Ortho consulted Assessment & Plan (06/06/2024 2:45 PM EST): Recently been diagnosed with pelvic abscess, 4 cm pelvic abscess status post IR drainage about 2 to 3 days ago. During the hospitalization she had a positive culture with strep intermedius. She is on IV ceftriaxone plus p.o. Flagyl to cover PID/pelvic abscess and bacteremia. End date of antibiotics was set on 06/04. However CT demonstrating residual abscess. . Infectious disease consulted. Plan for 2 additional weeks of ceftriaxone and Flagyl . MRI pelvis demonstrating confluent bone marrow edema centered at the pubic symphysis concerning for acute osteomyelitis. Also demonstrating edema involving the pectineus and adductor muscles, in keeping with myositis with small intramuscular abscesses, the largest within the left adductor brevis muscle. -ID consulted and following -Recommending continued ceftriaxone and Flagyl -Oxycodone 5 mg - 10 mg for moderate - severe pain every 3 hours Assessment & Plan (06/05/2024 6:55 PM EST): Recently been diagnosed with pelvic abscess, 4 cm pelvic abscess status post IR drainage about 2 to 3 days ago. During the hospitalization she had a positive culture with strep intermedius. She is on IV ceftriaxone plus p.o. Flagyl to cover PID/pelvic abscess and bacteremia. End date of antibiotics was set on 06/04. However CT demonstrating residual abscess. . Infectious disease consulted. Plan for 2 additional weeks of ceftriaxone and Flagyl . -Continue ceftriaxone and Flagyl -Blood cultures from [facility] growing Streptococcus intermedius. -MRI pelvis and proximal lower extremities with contrast, as needed premed w/ Dilaudid once -Oxycodone 5 mg - 10 mg for moderate - severe pain every 3 hours Assessment & Plan (06/04/2024 6:20 PM EST): Recently been diagnosed with pelvic abscess, 4 cm pelvic abscess status post IR drainage about 2 to 3 days ago. During the hospitalization she had a positive culture with strep intermedius. She is on IV ceftriaxone plus p.o. Flagyl to cover PID/pelvic abscess and bacteremia. End date of antibiotics was set on 06/04. Culture from pelvic abscess drainage is pending -Continue ceftriaxone and Flagyl -Blood cultures from [facility] growing Streptococcus intermedius. -MRI pelvis and proximal lower extremities with contrast (to eval for inflammatory changes or abscess(es) in muscles), Assessment & Plan (06/03/2024 3:22 PM EST): Recently been diagnosed with pelvic abscess, 4 cm pelvic abscess status post IR drainage about 2 to 3 days ago. During the hospitalization she had a positive culture with strep intermedius. She is on IV ceftriaxone plus p.o. Flagyl to cover PID/pelvic abscess and bacteremia. End date of antibiotics was set on 06/04. Culture from pelvic abscess drainage is pending -Continue ceftriaxone and Flagyl -Blood cultures from [facility] growing Streptococcus intermedius. -MRI pelvis and proximal lower extremities with contrast (to eval for inflammatory changes or abscess(es) in muscles), Assessment & Plan (06/02/2024 4:45 PM EST): Recently been diagnosed with pelvic abscess, 4 cm pelvic abscess status post IR drainage about 2 to 3 days ago. During the hospitalization she had a positive culture with strep intermedius. She is on IV ceftriaxone plus p.o. Flagyl to cover PID/pelvic abscess and bacteremia. End date of antibiotics was set on 06/04. Culture from pelvic abscess drainage is pending Plan: Continue ceftriaxone and Flagyl Blood cultures from [facility] growing Streptococcus intermedius. Gait instability 06/01/2024 Assessment & Plan (06/08/2024 1:52 PM EST): Patient is mainly brought to the hospital due to gait instability. Patient was recently discharged home with recommendation for home PT-OT but since being discharged she has not [...] in the last 1 year. MRI spine demonstrating multilevel multifactorial degenerative changes most pronounced at C5-C6 and C6-C7 levels where there is up to moderate to severe left neural foraminal narrowing and mild spinal canal stenosis, however there is no significant neural foraminal or spinal canal stenosis at the thoracic levels and there is no abnormal signal or postcontrast enhancement through the spinal cord. The degenerative changes seen on imaging are not felt to be consistent with the patient's clinical symptoms. Neurology consulted, feeling that lower extremity weakness on exam is more likely secondary to suprapubic pain, and with encouragement weakness was slightly better prior to previous exams. They do agree with plan for MRI pelvis and MRI brain although have low suspicion for new septic emboli. Patient had TTE with bubble study not demonstrating any vegetation. MRI brain with with and without contrast was performed without any acute intracranial abnormality. Patient's folate and B12 levels within normal limits. 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 W/up: MRI pelvis: several intramuscular abscesses and concern for osteo around pubic symphysis Myositis panel: pending Serum paraneoplastic panel: pending Autoimmune w/up: AMADOU: negative RF: <10 negative SM (moreno): <1.0 negative Anti-dsDNA: negative [employer]: negative C3: elevated C4: negative ESR, CRP: elevated Metabolic testing: Aldolase: 4.7 nl VitD: 17 low LDH: 147 - F/up w/up as above - PT consulted, rec'd inpt facility Assessment & Plan (06/07/2024 5:47 PM EST): Patient is mainly brought to the hospital due to gait instability. Patient was recently discharged home with recommendation for home PT-OT but since being discharged she has not [...] in the last 1 year. MRI spine demonstrating multilevel multifactorial degenerative changes most pronounced at C5-C6 and C6-C7 levels where there is up to moderate to severe left neural foraminal narrowing and mild spinal canal stenosis, however there is no significant neural foraminal or spinal canal stenosis at the thoracic levels and there is no abnormal signal or postcontrast enhancement through the spinal cord. The degenerative changes seen on imaging are not felt to be consistent with the patient's clinical symptoms. Neurology consulted, feeling that lower extremity weakness on exam is more likely secondary to suprapubic pain, and with encouragement weakness was slightly better prior to previous exams. They do agree with plan for MRI pelvis and MRI brain although have low suspicion for new septic emboli. Patient had TTE with bubble study not demonstrating any vegetation. MRI brain with with and without contrast was performed without any acute intracranial abnormality. Patient's folate and B12 levels within normal limits. 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 - MRI pelvis, several intramuscular abscesses and concern for osteo around pubic symphysis - Myositis panel, pending - Serum paraneoplastic panel, pending - Further labs for autoimmune workup including: AMADOU, RF, moreno (SM), pending - Anti-dsDNA, negative - [employer] ARCHITECT, negative - C3, elevated - C4, negative - ESR, CRP, elevated - Further metabolic testing: aldolase, Vitamin D, Ca, LDH, pending Assessment & Plan (06/06/2024 2:45 PM EST): Patient is mainly brought to the hospital due to gait instability. Patient was recently discharged home with recommendation for home PT-OT but since being discharged she has not [...] in the last 1 year. MRI spine demonstrating multilevel multifactorial degenerative changes most pronounced at C5-C6 and C6-C7 levels where there is up to moderate to severe left neural foraminal narrowing and mild spinal canal stenosis, however there is no significant neural foraminal or spinal canal stenosis at the thoracic levels and there is no abnormal signal or postcontrast enhancement through the spinal cord. The degenerative changes seen on imaging are not felt to be consistent with the patient's clinical symptoms. Neurology consulted, feeling that lower extremity weakness on exam is more likely secondary to suprapubic pain, and with encouragement weakness was slightly better prior to previous exams. They do agree with plan for MRI pelvis and MRI brain although have low suspicion for new septic emboli. Patient had TTE with bubble study not demonstrating any vegetation. MRI brain with with and without contrast was performed without any acute intracranial abnormality. Patient's folate and B12 levels within normal limits. 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 - MRI pelvis, several intramuscular abscesses and concern for osteo around pubic symphysis - Myositis panel, pending - Serum paraneoplastic panel, pending - Further labs for autoimmune workup including: AMADOU, RF, anti-dsDNA, moreno (SM), EN[employer] ARCHITECT, C3, C4, ESR, CRP, pending - Further metabolic testing: aldolase, Vitamin D, Ca, LDH, pending Assessment & Plan (06/05/2024 6:40 PM EST): Patient is mainly brought to the hospital due to gait instability. Patient was recently discharged home with recommendation for home PT-OT but since being discharged she has not [...] in the last 1 year. MRI spine demonstrating multilevel multifactorial degenerative changes most pronounced at C5-C6 and C6-C7 levels where there is up to moderate to severe left neural foraminal narrowing and mild spinal canal stenosis, however there is no significant neural foraminal or spinal canal stenosis at the thoracic levels and there is no abnormal signal or postcontrast enhancement through the spinal cord. The degenerative changes seen on imaging are not felt to be consistent with the patient's clinical symptoms. Neurology consulted, feeling that lower extremity weakness on exam is more likely secondary to suprapubic pain, and with encouragement weakness was slightly better prior to previous exams. They do agree with plan for MRI pelvis and MRI brain although have low suspicion for new septic emboli. - Neurology following -TTE with bubble study, no vegetation noted - MRI brain with and without contrast, pending - MRI pelvis and proximal lower extremities with contrast, pending - Myositis panel, pending - Serum paraneoplastic panel, pending - Further labs for autoimmune workup including: AMADOU, RF, anti-dsDNA, moreno (SM), [employer] ARCHITECT, C3, C4, ESR, CRP, pending - Further metabolic testing: aldolase, Vitamin D, Ca, LDH, pending - Can consider electromyography pending some of the aforementioned testing - folate/b12 levels, pending Assessment & Plan (06/04/2024 6:20 PM EST): Patient is mainly brought to the hospital due to gait instability. Patient was recently discharged home with recommendation for home PT-OT but since being discharged she has not [...] in the last 1 year. MRI spine demonstrating multilevel multifactorial degenerative changes most pronounced at C5-C6 and C6-C7 levels where there is up to moderate to severe left neural foraminal narrowing and mild spinal canal stenosis, however there is no significant neural foraminal or spinal canal stenosis at the thoracic levels and there is no abnormal signal or postcontrast enhancement through the spinal cord. The degenerative changes seen on imaging are not felt to be consistent with the patient's clinical symptoms. -TTE with bubble study - MRI brain with and without contrast - MRI pelvis and proximal lower extremities with contrast (to eval for inflammatory changes or abscess(es) in muscles) - Myositis panel - Serum paraneoplastic panel - Further labs for autoimmune workup including: AMADOU, RF, anti-dsDNA, moreno (SM), [employer] ARCHITECT, C3, C4, ESR, CRP - Further metabolic testing: aldolase, Vitamin D, Ca, LDH - Can consider electromyography pending some of the aforementioned testing - Neurology following - folate/b12 levels, pending Assessment & Plan (06/03/2024 3:22 PM EST): Patient is mainly brought to the hospital due to gait instability. Patient was recently discharged home with recommendation for home PT-OT but since being discharged she has not [...] memory problem in the last 1 year. - Please continue with TTE with bubble study - MRI brain with and without contrast - MRI pelvis and proximal lower extremities with contrast (to eval for inflammatory changes or abscess(es) in muscles), MRI Cervical, thoracic and lumbar spine w/wo contrast - Myositis panel - Serum paraneoplastic panel - Further labs for autoimmune workup including: AMADOU, RF, anti-dsDNA, moreno (SM), EN[employer] ARCHITECT, C3, C4, ESR, CRP - Further metabolic testing: aldolase, Vitamin D, Ca, LDH - Can consider electromyography pending some of the aforementioned testing - Neurology following Assessment & Plan (06/02/2024 4:45 PM EST): Patient is mainly brought to the hospital due to gait instability. Patient was recently discharged home with recommendation for home PT-OT but since being discharged she has not [...] memory problem in the last 1 year. Neurology consulted Repeating MRI Cervical, thoracic and lumbar spine w/wo contrast Repeat blood cultures Echo with bubble study Follow the progression of disease Social History Tobacco Use Types Packs/Day Years [...] on file Sexual Orientation Not on file Last Filed Vital Signs [...] oz) 06/20/2024 9:52 A M EST Height 163.8 cm (5' 4.49 ) 06/05/2024 6:43 AM ES T Body Mass Index 24.89 06/05/2024 6:43 AM EST Plan of Treatment Upcoming Encounters Date Type Department Care Team (Late st Contact Info) Description 07/11/2024 9:00 AM EDT Follow-Up [facility] [address] [place] [id number] Automation Consultant: Herman Michael MD [address] [place] [address] [place] [address] Procedures * Due to [place] state law, this organization might not be [...] AUTO DIFFERENTIAL Routine 06/11/2024 5:00 AM EST HEPATIC FUNCTION PANEL Routine 11:18 AM EST PREALBUMIN Routine 06/09/2024 11:17 AM EST CBC AUTO DIFFERENTIAL Routine 06/09/2024 11:17 AM EST ALBUMIN Routine 06/09/2024 11:16 AM EST BASIC METABOLIC PANEL Routine 06/09/2024 11:16 AM EST MAGNESIUM Routine 06/08/2024 5:49 AM EST BASIC METABOLIC PANEL Routine 06/08/2024 5:49 AM EST CBC AUTO DIFFERENTIAL Routine 06/08/2024 5:49 AM EST [facility] IV SPECTROGRAPHER PICC Routine 3:55 PM EST C-REACTIVE PROTEIN STAT 06/07/2024 3: 14 PM EST SEDIMENTATION RATE, AUTOMATED STAT 06/07/2024 3:14 PM EST XR PELVIS 3+ VW Routine 06/07/2024 1:42 PM EST MAGNESIUM Routine 06/07/2024 5:31 AM EST BASIC METABOLIC PANEL Routine 06/07/2024 5:31 AM EST CBC AUTO DIFFERENTIAL Routine 06/07/2024 5:31 AM EST MAGNESIUM Routine 06/06/2024 7:13 AM EST BASIC METABOLIC PANEL Routine 06/06/2024 7:13 AM EST CBC AUTO DIFFERENTIAL Routine 06/06/2024 7:13 AM EST MRI BRAIN W WO CONTRAST STAT 06/06/19 7:00 AM EST MRI (MSK) PELVIS W WO CONTRAST STAT 06/06/2024 6:[address] CHEST W CONTRAST Routine 06/05/2024 1 2:39 PM EST POCT GLUCOSE Routine 06/05/2024 11:20 AM EST TRANSTHORACIC ECHO (TTE) COMPLETE W/ BUBBLE Routine 06/05/2024 9:39 AM EST POCT GLUCOSE Routine 06/05/2024 7:49 AM EST RED TOP Routine 06/05/2024 4:52 AM EST EXTRA TUBES Routine 06/05/2024 4:52 AM EST FOLATE Routine 06/05/2024 3:49 AM EST VITAMIN B12 Routine 06/05/2024 3:49 AM EST NGS MPN CORE DIAGNOSTIC PANEL Routine 06/05/2024 3:49 AM EST IMMUNOGLOBULINS PANEL (IGG, IGA, IGM) Routine 06/05/2024 3:49 AM EST VITAMIN B12 Routine 06/05/2024 3:49 AM EST MAGNESIUM Routine 06/05/2024 3:49 AM EST BASIC METABOLIC PANEL Routine 06/05/2024 3:49 AM EST CBC AUTO DIFFERENTIAL Routine 06/05/2024 3:49 AM EST LACTIC ACID, PLASMA STAT 06/04/2024 1 0:41 PM EST CBC AUTO DIFFERENTIAL STAT 06/04/2024 10:41 PM EST TYPE AND SCREEN STAT 06/04/2024 10:37 PM EST COMPREHENSIVE METABOLIC PANEL STAT 06/04/2024 10:37 PM EST VON [place]IL[place]AND FACTOR ANTIGEN Routine 06/04/2024 11:04 AM EST FACTOR 8 RISTOCETIN COFACTOR Routine 06/04/2024 11:04 AM EST MANUAL DIFFERENTIAL Routine 06/04/2024 9 :57 AM EST CBC AUTO DIFFERENTIAL Routine 06/04/2024 9:57 AM EST MANUAL DIFFERENTIAL Routine 06/04/2024 3 :44 AM EST HEPATIC FUNCTION PANEL STAT Add-on 3:44 AM EST FERRITIN Add-On 06/04/2024 3:44 AM EST IRON SATURATION Add-On 06/04/2024 3:44 AM EST IRON, TIBC AND FERRITIN PANEL (5616) Add-On 06/04/2024 3:44 AM EST COMPLEMENT C3 Routine 06/04/2024 3:44 AM EST COMPLEMENT C4 Routine 06/04/2024 3:44 AM EST ENTER[employer] ARCHITECT ANTIBODY Routine 06/04/2024 3:44 AM EST MORENO (SM) ANTIBODY Routine 06/04/2024 3 :44 AM EST DNA ANTIBODY, DOUBLE-STRANDED Routine 06/04/2024 3:44 AM EST AMADOU SCREEN, IFA, W/REFLEX TO TITER & PATTERN Routine 06/04/2024 3:44 AM EST PARANEOPLASTIC ANTIBODY EVALUATION W/REFLEX TO TITER AND LINE BLOT, BASIC Routine 06/04/2024 3:44 AM EST VITAMIN D 1,25 DIHYDROXY Routine 06/04/2024 3:44 AM EST ALDOLASE Routine 06/04/2024 3:44 AM EST MAGNESIUM Routine 06/04/2024 3:44 AM EST BASIC METABOLIC PANEL Routine 06/04/2024 3:44 AM EST CBC AUTO DIFFERENTIAL Routine 06/04/2024 3:44 AM EST LACTATE DEHYDROGENASE Routine 06/03/2024 6:19 PM EST SEDIMENTATION RATE, AUTOMATED Routine 06/03/2024 6:19 PM EST RHEUMATOID FACTOR Routine 06/03/2024 6:1 9 PM EST C-REACTIVE PROTEIN Add-On 06/03/2024 11 :01 AM EST MAGNESIUM Routine 06/03/2024 11:01 AM EST BASIC METABOLIC PANEL Routine 06/03/2024 11:01 AM EST CBC AUTO DIFFERENTIAL Routine 06/03/2024 11:01 AM EST MRI CERVICAL SPINE W WO CONTRAST Routine 06/03/2024 9:05 AM EST MRI THORACIC SPINE W WO CONTRAST Routine 06/03/2024 8:35 AM EST MRI LUMBAR SPINE W WO CONTRAST Routine 06/03/2024 8:05 AM EST BLOOD CULTURE Routine 06/02/2024 4:42 PM EST BLOOD CULTURE Routine 06/02/2024 4:42 PM EST CK Timed 06/02/2024 12:03 PM EST TSH REFLEX FREE T4 Add-On 06/02/2024 8: 13 AM EST CBC Routine 06/02/2024 8:13 AM EST COMPREHENSIVE METABOLIC PANEL Routine 06/02/2024 8:[address] ABDOMEN PELVIS W CONTRAST STAT 06/01/2024 4:23 PM EST YELLOW TOP Routine 06/01/2024 1:24 PM EST EXTRA TUBES Routine 06/01/2024 1:24 PM EST TYPE AND SCREEN STAT 06/01/2024 1:01 PM EST BASIC METABOLIC PANEL STAT 06/01/2024 1:01 PM EST CBC AUTO DIFFERENTIAL STAT 06/01/2024 1:01 PM EST CLEMENTE TOP, URN Routine 06/01/2024 11:09 AM EST UA/CULTURE REFLEX Routine 06/01/2024 11: 09 AM EST URINALYSIS W/REFLEX TO MICROSCOPIC & CULTURE Routine 06/01/2024 11:09 AM EST PAP W/HPV, CONVERSION Routine 05/25/2011 9:53 AM EST from Last 3 Months or Most Recently Relevant to Health Maintenance Results * Due to [place] state law, this organization might not be sharing negative HIV tests. * (ABNORMAL) CBC Auto Differential (06/18/2024 5:55 AM EST) Only the most recent of13 resultswithin the time period is included. WBC 7.2 4.8 - 10.8 10*3/uL 06/18/2024 9:46 AM EST [facility] RBC 3.67(L) 4.20 - 5.40 10*6/uL 06/18/2024 9:46 AM [facility] Hemoglobin 10.2(L) 11.7 - 15.5 g/dL 06/18/2024 9:46 AM [facility] Hematocrit 32.7(L) 35.7 - 45.8 % 06/18/2024 9:46 AM [facility] MCV 89.1 81.0 - 99.0 fL 06/18/2024 9:46 AM [facility] MCH 27.8 26.0 - 34.0 pg 06/18/2024 9:46 AM [facility] MCHC 31.2 31.0 - 36.0 g/dL 06/18/2024 9:46 AM [facility] RDW 15.2(H) 12.0 - 15.0 % 06/18/2024 9:46 AM [facility] RDW Standard Deviation 48.3(H) 36.4 - 46.3 fL 06/18/2024 9:46 AM [facility] Platelets 439 140 - 440 10*3/uL 06/18/2024 9:46 AM [facility] MPV 8.8(L) 9.4 - 12.3 fL 06/18/2024 9:46 AM [facility] Neutrophil % 42.0(L) 50.0 - 75.0 % 06/18/2024 9:46 AM [facility] Immature Grans % 0.8 0.0 - 0.9 % 06/18/2024 9:46 AM [facility] Lymphocyte % 41.4 20.0 - 44.0 % 06/18/2024 9:46 AM [facility] Monocyte % 9.8 0.0 - 14.0 % 06/18/2024 9:46 AM [facility] Eosinophil % 5.2(H) 0.0 - 5.0 % 06/18/2024 9:46 AM [facility] Basophil % 0.8 0.0 - 2.0 % 06/18/2024 9:46 AM EST [facility] Neutrophil # 3.03 1.80 - 7.70 10*3/uL 06/18/2024 9:46 AM EST [facility] Immature Grans # 0.06(H) 0.00 - 0.03 10*3/uL 06/18/2024 9:46 AM EST [facility] Lymphocyte # 3.00 1.00 - 4.75 10*3/uL 06/18/2024 9:46 AM EST [facility] Monocyte # 0.70(H) 0.00 - 0.60 10*3/uL 06/18/2024 9:46 AM EST [facility] Eosinophil # 0.40 0.00 - 0.80 10*3/uL 06/18/2024 9:46 AM EST [facility] Basophil # 0.10 0.00 - 0.20 10*3/uL 06/18/2024 9:46 AM EST [facility] nRBC % 0.0 0 - 0 /100 WBCs 06/18/2024 9:46 AM EST [facility] nRBC # <0.01 0.00 - 0.13 10*3/uL 06/18/2024 9:46 AM EST [facility] Blood Structure of peripheral vein / Unknown Venipuncture / Unknown 06/18/2024 5:55 AM EST 06/18/2024 7:40 AM EST us Doctor Unknown LAB BLOOD ORDERABLES Final Resul t [facility] [address] [place] [address] [address] [place] [address], * (ABNORMAL) Comprehensive Metabolic Panel (06/18/2024 5:55 AM EST) Only the most recent of4 resultswithin the time period is included. NA 141 136 - 145 mmol/L 06/18/2024 9:57 AM EST [facility] K 4.5 3.5 - 5.1 mmol/L 06/18/2024 9:57 AM [facility] Cl 101 98 - 109 mmol/L 06/18/2024 9:57 AM [facility] CO2 32 22 - 32 mmol/L 06/18/2024 9:57 AM [facility] Anion Gap 13 >=0 06/18/2024 9:57 AM [facility] Glucose 93 60 - 99 mg/dL 06/18/2024 9:57 AM [facility] Creatinine 0.70 0.50 - 1.12 mg/dL 06/18/2024 9:57 AM [facility] Calcium 9.3 8.4 - 10.4 mg/dL 06/18/2024 9:57 AM [facility] Total Protein 6.4(L) 6.6 - 8.7 g/dL 06/18/2024 9:57 AM [facility] Albumin 3.5 3.5 - 5.0 g/dL 06/18/2024 9:57 AM [facility] Bilirubin, Total 0.1(L) 0.2 - 1.2 mg/dL 06/18/2024 9:57 AM [facility] Alkaline Phosphatase 123 40 - 129 U/L 06/18/2024 9:57 AM [facility] AST 41(H) 0 - 33 U/L 06/18/2024 9:57 AM [facility] ALT 30 <=33 U/L 06/18/2024 9:57 AM [facility] BUN 13 8 - 23 mg/dL 06/18/2024 9:57 AM [facility] eGFR >90 >=60 mL/min/1. 73m2 06/18/2024 9:57 AM [facility] Comment:The estimated glomer ular filtration rate (eGFR) is calculated using a new formula developed by the NKF-ASN task force to eliminate race-based correction factors. The new formula uses serum/plasma creatinine, age, and gender to determine eGFR. A value below 60mls/min might indicate kidney disease and will be flagged. For additional information, see Fitzgerald et al, Am J Kidney Dis. 2021;79(2):268- 288, A Unifying Approach for GFR estimation: Recommendations of the NKF-ASN Task Force on Reassessing the Inclusion of Race in Diagnosing Kidney Disease . Globulin, Total 2.9 2.1 - 4.2 g/dL 06/18/2024 9:57 AM EST [facility] A/G Ratio 1.2(L) 1.5 - 3.0 06/18/2024 9:57 AM EST [facility] Blood Structure of peripheral vein / Unknown Venipuncture / Unknown 06/18/2024 5:55 AM EST 06/18/2024 7:40 AM EST [facility] - 06/18/2024 9:57 AM EST NUR3\S\300\S\A\S\0156\S\S\BED\S\0156 Magdalena Johnson TURN OUT WORKER LAB BLOOD ORDERABLES Final Result [facility] [address] [place] [address] [address] [place] [address], * (ABNORMAL) Basic Metabolic Panel (06/11/2024 5:00 AM EST) Only the most recent of9 resultswithin the time period is included. NA 136 136 - 145 mmol/L 06/11/2024 9:45 AM EST [facility] K 4.4 3.5 - 5.1 mmol/L 06/11/2024 9:45 AM EST [facility] Cl 97(L) 98 - 109 mmol/L 06/11/2024 9:45 AM EST [facility] CO2 28 22 - 32 mmol/L 06/11/2024 9:45 AM EST [facility] BUN 7(L) 8 - 23 mg/dL 06/11/2024 9:45 AM EST [facility] Creatinine 0.61 0.50 - 1.12 mg/dL 06/11/2024 9:45 AM EST [facility] Glucose 106(H) 60 - 99 mg/dL 06/11/2024 9:45 AM EST [facility] Calcium 8.5 8.4 - 10.4 mg/dL 06/11/2024 9:45 AM EST [facility] Anion Gap 15 >=0 06/11/2024 9:45 AM EST [facility] eGFR >90 >=60 mL/min/1. 73m2 06/11/2024 9:45 AM EST [facility] Comment:The estimated glomer ular filtration rate (eGFR) is calculated using a new formula developed by the NKF-ASN task force to eliminate race-based correction factors. The new formula uses serum/plasma creatinine, age, and gender to determine eGFR. A value below 60mls/min might indicate kidney disease and will be flagged. For additional information, see Lia et al, Am J Kidney Dis. 2021;79(2):268- 288, A Unifying Approach for GFR estimation: Recommendations of the NKF-ASN Task Force on Reassessing the Inclusion of Race in Diagnosing Kidney Disease . Blood Structure of peripheral vein / Unknown Venipuncture / Unknown 06/11/2024 5:00 AM EST 06/11/2024 7:03 AM EST Narrative [facility] - 06/11/2024 9:45 AM EST NUR3\S\300\S\A\S\0156\S\S\BED\S\0156 us Doctor Unknown LAB BLOOD ORDERABLES Final Resul t [facility] [address] [place] [address] [address] [place] [address], * (ABNORMAL) Hepatic Function Panel (06/09/2024 11:18 AM EST) Only the most recent of2 resultswithin the time period is included. Total Protein 7.0 6.6 - 8.7 g/dL 06/09/2024 12:57 PM EST [facility] Albumin 3.3(L) 3.5 - 5.0 g/dL 06/09/2024 12:57 PM EST [facility] Globulin, Total 3.7 2.1 - 4.2 g/dL 06/09/2024 12:57 PM EST [facility] Bilirubin, Total 0.2 0.2 - 1.2 mg/dL 06/09/2024 12:57 PM EST [facility] Bilirubin, Direct 0.1 <=0.3 mg/dL 06/09/2024 12:57 PM EST [facility] Alkaline Phosphatase 127 40 - 129 U/L 06/09/2024 12:57 PM EST [facility] AST 20 0 - 33 U/L 06/09/2024 12:57 PM EST [facility] ALT 9 <=33 U/L 06/09/2024 12:57 PM EST [facility] Bilirubin, Indirect 0.10 <=0.70 mg/dL 06/09/2024 12:57 PM EST [facility] A/G Ratio 0.9(L) 1.5 - 3.0 06/09/2024 12:57 PM EST [facility] Blood Structure of peripheral vein / Unknown 06/09/2024 11:18 AM EST 06/09/2024 12:26 PM EST [facility] - 06/09/2024 12:57 PM EST NUR3\S\300\S\A\S\0156\S\S\BED\S\0156 us Aure Richter MD LAB BLOOD ORDERABLES Sherly l Result [facility] [address] [facility] [address] [place] [address], * (ABNORMAL) Prealbumin (06/09/2024 11:17 AM EST) Prealbumin 16(L) 20 - 40 mg/dL 06/09/2024 1:16 PM EST [facility] Blood Structure of peripheral vein / Unknown Venipuncture / Unknown 06/09/2024 11:17 AM EST 06/09/2024 11:17 AM EST Narrative [facility] - 06/09/2024 1:16 PM EST NUR3\S\300\S\B\S\0156\S\S\BED\S\0156 us Doctor Unknown LAB BLOOD ORDERABLES Final Resul t Performing Organization Address [facility] de Phone Number [facility] [address] [address], * (ABNORMAL) Albumin (06/09/2024 11:16 AM EST) Albumin 3.3(L) 3.5 - 5.0 g/dL 06/09/2024 12:55 PM EST [facility] Blood Structure of peripheral vein / Unknown Venipuncture / Unknown 06/09/2024 11:16 AM EST 06/09/2024 11:16 AM EST Narrative [facility] - 06/09/2024 12:55 PM EST NUR3\S\300\S\B\S\0156\S\S\BED\S\0156 NUR3\S\300\S\B\S\0156\S\S\BED\S\0156 us Doctor Unknown LAB BLOOD ORDERABLES Final Resul t Performing Organization Address [facility] Co de Phone Number [facility] [address] [place] [id number], * Magnesium (06/08/2024 5:49 AM EST) Only the most recent of6 resultswithin the time period is included. MG 1.9 1.6 - 2.4 mg/dL 06/08/2024 6:27 AM EST [facility] Blood Structure of peripheral vein / Unknown Venipuncture / Unknown 06/08/2024 5:49 AM EST 06/08/2024 5:58 AM EST us Eliazar Morgan MD LAB BLOOD ORDERABLES Final Res ult [id number] [address] [place] [address], [place] * P[employer]IC AND RECONSTRUCTIVE SURGEON PICC and Midline (06/07/2024 3:55 PM EST) Narrative Eliazar Hammond RN - 06/07/2024 3:55 PM EST Eliazar Hammond RN ? 06/07/2024 ??3:56 PM PICC line insertion Date/Time: 06/07/2024 3:55 PM Performed by: Eliazar Hammond RN Provider type: External RN Vendor ??Reason for Insertion: intravenous antibiotics ?Successful placement: yes ?? [place] Protocol ??Patient identity confirmed: ??Name and MRN on the patient's armband and Name and with patient ??Written consent obtained?: yes ?Procedure consent matches procedure to be performed: ??Yes ??All relevant documents/tests are correctly identified, labeled, and matched to patient: ??Yes ??Relevant tests/ Imaging studies available/reviewed: ??Yes ??Correct site marked: ??N/A ??Required blood products, implants, devices and special equipment available: ??Yes ??Immediately prior to the procedure a time out was called: ??Yes Pre-Procedure Central Line Bundle ??Sterile barrier technique: All Elements of full barrier protection used ?Skin preparation: ??ChloraPrep ??Ultrasound: Sterile sheath and gel used ?? Site Assessment ??Vein Accessed: ??Right deep brachial ??Initial Arm Circumference (cm): ??27 Procedure Details ??Local Anesthetic: ??Injectable ??Ultrasound guidance: yes ?Number of attempts: ??1 ??Blood return in all lumens?: Yes ?All lumens flush freely?: Yes ?Catheter Secured: ??Catheter securement device Device Details ??Catheter Type: ??Bard PowerPICC Sherlock ECG Tip ??Catheter Lumens: ??Single lumen ??Catheter Size (fr): ??4 ??Lot #: ??[id number] ??Catheter Total Length (cm): ??38 ??Catheter External Length (cm): ??0 Post-Procedure Central Line Bundle ??Guidewire Removal Confirmed?: Yes ?All Ports Capped?: Yes ?Verification of Line Placement: ??ECG guidance system ??Dressing Applied: Antimicrobial Post-Procedure Details ??Patient tolerance of procedure: ??Tolerated well, no immediate complications ??Significant events: ??None ??Plan: ??PICC line ready for immediate use ??Handoff Report Given to: ??Zoe Pires, MJ Eliazar Morgan MD IV THERAPY ORDERABLES Final Re sult * (ABNORMAL) Sedimentation Rate (06/07/2024 3:14 PM EST) Only the most recent of2 resultswithin the time period is included. Sed Rate 60(H) <30 mm/Hr mm/Hr 06/07/2024 3:32 PM EST [facility] Blood Structure of peripheral vein / Unknown Venipuncture / Unknown 06/07/2024 3:14 PM EST 06/07/2024 3:23 PM EST Eliazar Morgan MD LAB BLOOD ORDERABLES Final Res ult Performing Organization Address [facility] Co de Phone Number [facility] [address] [place] [address], * (ABNORMAL) C-reactive protein (06/07/2024 3:14 PM EST) Only the most recent of2 resultswithin the time period is included. C Reactive Protein 29.3(H) <=9.9 mg/L 06/07/2024 3:59 PM EST [facility] Blood Structure of peripheral vein / Unknown Venipuncture / Unknown 06/07/2024 3:14 PM EST 06/07/2024 3:23 PM EST Eliazar Morgan MD LAB BLOOD ORDERABLES Final Res ult [facility] [address] [place] [address], [place] * X-Ray Pelvis 3+ Views (06/07/2024 1:42 PM EST) Anatomical Region Laterality Modality Body, Pelvis Radiographic Mira ging 06/07/2024 4:41 PM EST Impressions 06/07/2024 5:18 PM EST FINDINGS/IMPRESSION: There is patchy sclerosis involving the [...] obtain the completed interpretation. ? Workstation ID: [id number] Narrative 06/07/2024 5:18 PM EST COMPARISON: MRI of the pelvis from 06/06/2024. Resulting Agency Comment [id number] Procedure Note Eliazar Nieves MD - 06/07/2024 COMPARISON: MRI of the pelvis [...] possible to obtain thecompleted interpretation. Workstation ID: [id number] us Eliazar Morgan MD IMG XR PROCEDURES Final Result * MRI Brain with and without Contrast (06/06/2024 7:00 AM EST) Anatomical Region Laterality Modality Head and Neck Magnetic Resonan ce 06/06/2024 6:00 AM EST Impressions 06/06/2024 9:51 AM EST 1. ??No acute intracranial abnormality. 2. ??Very [...] obtain the completed interpretation. ? Workstation ID: [id number] Narrative 06/06/2024 9:51 AM EST EXAMINATION: MRI [...] question prior cosmetic procedure. ??Correlate with history. Resulting Agency Comment [id number] Procedure Note Jose A Padilla MD - 06/06/2024 EXAMINATION: MRI brain without and [...] possible to obtain thecompleted interpretation. Workstation ID: [id number] Chelsea Salinas MD [facility] MRI PROCEDURES Final Result * MRI (MSK) Pelvis W WO Contrast (06/06/2024 6:00 AM EST) Anatomical Region Laterality Modality Body, Pelvis Magnetic Resonan ce 06/06/2024 5:00 AM EST Impressions 06/06/2024 9:29 AM EST IMPRESSION: 1. ??Confluent bone marrow edema centered at the pubic symphysis is concerning for acute osteomyelitis. Small amount of fluid at the pubic symphysis is likely septic. 2. ??Edema involving the pectineus and adductor muscles, in keeping with myositis with small intramuscular abscesses, the largest within the left adductor brevis muscle. A(n) [employer] actionable finding has been communicated to the ordering or responsible provider via the A[employer] system on 06/06/2024 9:29 AM. ??Receipt of this communication by the responsible provider will be documented in [employer] Findings upon receiving acknowledgement if applicable, Message ID [id number]. Eliazar Rizzo, have reviewed the examination and concur with the findings as reported or so edited. Trainee: ??Rosa Maria Morales If this radiology report contains a blank impression section, it is an incomplete radiology report. ??Please contact the interpreting radiologist or applicable radiology division as soon as possible to obtain the completed interpretation. ? Workstation ID: [id number] Narrative 06/06/2024 9:29 AM EST INDICATION: ??To [...] nabothian cyst. Visualized neurovascular structures appears unremarkable. Resulting Agency Comment [id number] Procedure Note Eliazar Nieves MD - 06/06/2024 INDICATION: To eval for inflammatory [...] largest within the leftadductor brevis muscle. A(n) [employer] actionable finding has been communicated to the ordering orresponsible provider via the Adsame system on06/06/2024 9:29 AM. Receipt of this communication by the responsibleprovider will be documented in [employer] uponreceiving acknowledgement if applicable, Message ID [id number]. I, Eliazar Nieves, have reviewed the examination and concur with the findings asreported or so edited. Trainee: Rosa Maria Morales If this radiology report contains a blank impression section, it is anincomplete radiology report. Please contact the interpreting radiologistor applicable radiology division as soon as possible to obtain thecompleted interpretation. Workstation ID: [id number] Chelsea Salinas MD IM MRI PROCEDURES Final Result * CT Chest W Contrast (06/05/2024 12:39 PM EST) Anatomical Region Laterality Modality Body Computed Tomogra phy 06/05/2024 1:11 PM EST Impressions 06/05/2024 1:18 PM EST Impression: Clustered nodular opacities in the left [...] the ordering or responsible provider via the A[employer] system on 06/05/2024 1:18 PM. ??Receipt of this communication by the responsible provider will be documented in [employer] upon receiving acknowledgement if applicable, Message ID [id number]. If this radiology report contains a blank impression section, it is an incomplete radiology report. ??Please contact the interpreting radiologist or applicable radiology division as soon as possible to obtain the completed interpretation. ? Workstation ID: [id number] Up-to-date CT equipment and radiation dose reduction techniques were employed. CTDIvol: 5.2 mGy. DLP: 154 mGy-cm. Narrative 06/05/2024 1:18 PM EST Indication: ??r/o [...] bones: Mild degenerative change in the spine. Resulting Agency Comment [id number] Eliazar Moragn MD IMG CT PROCEDURES Edited Resul t - Final * (ABNORMAL) POCT Glucose, interfaced (06/05/2024 11:20 AM EST) Only the most recent of2 resultswithin the time period is included. [facility] Glucose, POCT 130(H) 70 - 99 mg/dL 06/05/2024 11:32 AM EST [facility] Comment: The service liaison representative has not determined the efficacy of this test in Critically ill patients. ??[facility] defines Critically ill patients for the purpose of blood glucose monitoring (BGM) by glucometer, as patients meeting one or more of the following criteria: Hypotension- non-ICU patients (systolic blood pressure Less than 90 mmHg) due to shock Hypotension -ICU patients ??(Mean Arterial Pressure (MAP) <60 mmHg or systolic blood pressure < 90 mmHg due to shock Patients receiving Vasopressors (phenylephrine, vasopressin or norepinephrine) Anasarca In all locations, BGM test results should not be relied upon in the above situations, unless these results confirmed with lab-based glucose values. Blood 06/05/2024 11:2 0 AM EST 06/05/2024 11:32 AM EST us Eliazar Morgan MD LAB POCT ORDERABLES - DEVICE F inal Result [facility] [address] [place] [address], [place] * TRANSTHORACIC ECHO (TTE) COMPLETE W/ BUBBLE (06/05/2024 9:39 AM EST) RIGHT ATRIAL PRESSURE 3 mmHg Echo EF Estimated 70 % LVIDD 4.0 cm LV Systolic Volume 18 mL LV Systolic Volume Index 10 mL/m2 LVIDS 3.0 cm LV Diastolic Volume 74 mL LV Diastolic Volume Index 42 mL/m2 IVS 0.9 cm LVOT diameter 1.8 cm LVOT area 2.54 cm2 Relative Wall Thickness 0.50 PW 1.0 cm LV Mass Index 67 g/m2 MV Peak E Jamie 0.56 m/s MV avg E/e' 5.54 MV Peak A Jamie 0.64 m/s E/A ratio 0.90 Lateral e' 0.12 m/s E wave deceleration time 187.0 msec Septal e' 0.09 m/s MV E/E' Tissue Velocity Lateral 4.80 LA Volume Index 27 mL/m2 MV E/e' septal 6.54 LA volume 48 mL GLS (auto) -18.2 LA size 3.1 cm TAPSE 1.5 cm RA 2D single-plane vol 25 mL RA vol index 13.80 mL/m2 LV ED Post Wall 1.00 LV ES Dimension 3.00 LV ED Dimension 4.00 Aortic Valve Diam 1.8 cm LV GLS A3C -12 LV GLS A2C -17 LV GLS A4C -20 EF 2D 70 % Global longitudinal strain -18.2 [facility] RV TISSUE DOPPLER S' 15.4 cm/s Ascending aorta 3.3 cm Ao-asc Z score 1.13 Sinus 3.5 cm Aortic Root Z-score 1.29 Dummy BSA 1.75 Anatomical Region Laterality Modality Heart Echocardiography Narrative 06/05/2024 10:55 AM EST ?Normal biventricular size and global systolic function. ??Estimated LVEF is 70%. ??No regional wall motion abnormalities. ?Normal atrial size. ?No significant valvular disease identified. ?No interatrial shunt detected by color flow Doppler. No interatrial septal aneurysm. Unable to perform bubble study. Left Ventricle The left ventricle size is normal. Normal left ventricular wall thickness. Left ventricular mass index is normal. Normal left ventricular wall motion. Normal left ventricular systolic function with estimated LVEF 70% by Campa? s biplane method of disc. Estimated left ventricular filling pressure is normal. Right Ventricle Right ventricle size is normal. Normal right ventricular systolic function. TAPSE is normal (>=1.7 cm). Tissue Doppler peak systolic velocity is normal (>9.5 cm/s). Left Atrium Left atrium size is normal. Left atrium volume index is 27 mL/m2. Right Atrium Right atrium is normal in size. RA volume index is 13.80 mL/m2. IVC/SVC IVC diameter is less than or equal to 21 mm and decreases greater than 50% during inspiration; therefore the estimated right atrial pressure is normal (~3 mmHg). Mitral Valve Mitral valve structure is normal. Moderate systolic anterior motion of the mitral chordae. Trace mitral regurgitation. No mitral stenosis. Tricuspid Valve Tricuspid valve structure is normal. Mild tricuspid regurgitation. No tricuspid stenosis. Aortic Valve There is a normal aortic valve. No aortic regurgitation. No aortic stenosis. Pulmonic Valve Pulmonic valve structure is normal. No pulmonic regurgitation. No pulmonic stenosis. Ascending Aorta The sinuses of Valsalva and ascending aorta are normal. Pericardium No pericardial effusion. Pulmonary Artery TR jet was inadequate to estimate pulmonary artery pressure. Atrial Septum No interatrial shunt detected by color flow Doppler. No interatrial septal aneurysm. Ventricular Septum Normal septal motion. Study Details A complete echo was performed using 2D imaging, color flow Doppler and complete spectral Doppler. Myocardial deformation imaging was performed using Cyanto. During the study the apical, parasternal, subcostal and suprasternal view was captured. Overall the study quality was adequate. Prior Study No prior study available for comparison. STRESS ECHO OVERALL FINDINGS No significant valvular disease identified. Bin Fairchild MD CV ECHO PROCEDURES Final Resul t * Red Top (06/05/2024 4:52 AM EST) Extra Tube Hold for add-ons. 06/05/2024 9:06 AM EST [facility] Comment:Auto resulted. Blood Structure of peripheral vein / Unknown 06/05/2024 4:52 AM EST 06/05/2024 4:52 AM EST Eliazar Morgan MD LAB BLOOD ORDERABLES Final Res ult [facility] [address] [place] [address], * MPN Core Diagnostic Panel (JAK2, CALR, MPL) (06/05/2024 3:49 AM EST) Specimens Specimen Number: [id number] Specimen Type: Blood Specimen Source: Venous, Peripheral Linked Case: N/A Collection/Procedur e Date: 06/05/2024 Specimen Description: N/A [facility] MANUAL 5 4:46 PM EST [facility] JAK2 [id number] Mutation Not Detected Not Detected, See Comments [facility] MANUAL 5 4:46 PM EST [facility] CALR EXON 9 Mutation Not Detected Not Detected, See Comments [facility] MANUAL 5 4:46 PM EST [facility] JAK2 EXON 12 Mutation Not Detected Not Detected, See Comments [facility] MANUAL 5 4:46 PM EST [facility] MPL EXON 10 Mutation Not Detected Not Detected, See Comments [facility] MANUAL 5 4:46 PM EST [facility] Interpretation A negative result does NOT exclude a diagnosis of myeloproliferative neoplasm (MPN) such as Polycythemia vera (PV) Essential thrombocythemia (ET), or Myelofibrosis (MF). Although this assay detects the majority mutations observed in MPN a negative result does not rule out the presence of a rare or low level mutation. Alterations outside of the tested areas of the JAK2, CALR and MPL genes will not be detected. Results should be interpreted in the context of other clinical findings. [facility] MANUAL 5 4:46 PM EST [facility] Clinical History Obturator Abcess, unknown etiology [facility] MANUAL 5 4:46 PM EST [facility] Test Description Intended Use: The ION Ampliseq Custom Panel [...] DNA was purified. DNA was quantified by spectrophotometry/f luorometry. A library was created using multiplex PCR [...] bead. Sequencing template was loaded onto an [employer] next generation sequencer and data was analyzed using [employer] Caller and [employer] Gene software packages using VSLw84_2 (Anatoly HG19) as the reference sequence. ION Ampliseq Custom Panel JAK2(V617F) [id number] MPL CALR Contact lab for detail of gene exon/hotspot codons covered in the assay. DNA sequences used as references for this panel of genes can be found at: http://www.ncbi.nlm .nih.gov/refseq/rsg / The mutation nomenclature is based on the convention recommended by the Human Genome Variation Society (http://www.hgvs.or g/mutnomen/). Depilatory Painter: When appropriate multiplex PCR amplification of 5 [...] is >500X. When appropriate, mutations detected by [employer] sequencing were confirmed as follows. Patient DNA [...] variant when testing the tumor component alone. [facility] MANUAL 5 4:46 PM EST [facility] References 1. Meg et al. COSMIC: mining complete cancer genomes in the Catalogue of Somatic Mutations in Cancer (COSMIC) Nucleic Acids Research, 2011; 39:945-50. COSMIC Website:http://canc U-Systems.slick.ac.uk/cos lb 2. Ramona ST et al. dbSNP: the NCBI database of genetic variation. Nucleic Acids Res. 2001 Apr 25;29(1):308-11. Available from: http://www.ncbi.nlm .nih.gov/SNP/ 3. Zuri Guzman et al. Mutaional landscape and significance across 12 major cancer types. Nature, 2013; 502:333-339. 4. Rubi LORENZO et al. Cancer Genome Network. Genomic and Epigenomic Landscapes of Adult De Tu Acute Myeloid Leukemia. N Engl J Med 2013;368:2059-74. 5. Vianca A, Chris TL, Tiffanie CM, et al. CALR vs JAK2 vs MPL-mutated or triple-negative myelofibrosis: clinical, cytogenetic and molecular comparisons. Leukemia. 2014 Azeem;28(7):1472-7. doi: 10.1038/keiry.2014.3. [facility] MANUAL 5 4:46 PM EST [facility] ASR Disclaimer These tests were developed and their performance [...] other gene mutations not included in the [employer] AmpliSeq Myeloid Custom Panel v3. False positive or negative results may occur for reasons that include blood transfusions, a somatic mutation or single nucleotide polymorphism (SNP) at or near the primer binding sites or involvement of a target gene in a chromosome translocation. Moreover, negative results do not preclude the presence of mutations below detection limits of the assay. [facility] MANUAL 5 4:46 PM EST [facility] Signature . [facility] MANUAL 5 4:46 PM EST [facility] Blood Structure of peripheral vein / Unknown Venipuncture / Unknown 06/05/2024 3:49 AM EST 06/05/2024 4:07 AM EST Eliazar Morgan MD LAB MOLECULAR ORDERABLES Final Result [facility] [address] [place] [address], * Immunoglobulins Panel (IgG, IgA, IgM) (06/05/2024 3:49 AM EST) Immunoglobulin A 164 70 - 320 mg/dL 06/05/2024 5:11 PM EST [facility] IgG, Serum 1474 600 - 1540 mg/dL 06/05/2024 5:11 PM EST [facility] Immunoglobulin M 176 50 - 300 mg/dL 06/05/2024 5:11 PM EST [facility] Blood Implantable venous catheter submitted as specimen / Unknown Venipuncture / Unknown 06/05/2024 3:49 AM EST 06/05/2024 4:20 AM EST Narrative [facility] - 06/05/2024 5:11 PM EST [facility] Received Date: Eliazar Morgan MD LAB BLOOD ORDERABLES Final Res ult [facility] [address] [facility] [address], [place] [address], [place] [phone] [facility] [address] [facility] [address], [place] [address], [place] [phone] * Folate (06/05/2024 3:49 AM EST) Folate 15.5 4.8 - 24.2 ng/mL 06/05/2024 5:39 AM EST [facility] Blood Implantable venous catheter submitted as specimen / Unknown Venipuncture / Unknown 06/05/2024 3:49 AM EST 06/05/2024 4:20 AM EST us Eliazar Morgan MD LAB BLOOD ORDERABLES Final Res ult Performing Organization Address City/[facility]/ZIP Co de Phone Number [facility] [address] [place] [id number], * (ABNORMAL) Vitamin B12 (06/05/2024 3:49 AM EST) Vitamin B12 1,249(H) 232 - 1,245 pg/mL 06/05/2024 5:39 AM EST [facility] Blood Implantable venous catheter submitted as specimen / Unknown Venipuncture / Unknown 06/05/2024 3:49 AM EST 06/05/2024 4:20 AM EST us Eliazar Morgan MD LAB BLOOD ORDERABLES Final Res ult [facility] [address] [place] [address], [place] * Lactic Acid, Plasma (06/04/2024 10:41 PM EST) Lactic Acid 1.1 0.5 - 1.9 mmol/L 06/04/2024 11:18 PM EST [facility] Comment: Sepsis Screening: Initial Lactate Level >2.0 mmol/L - Repeat Lactate Level within 3 hours. Initial Lactate Level >4.0 mmol/L - Repeat Lactate Level within 3 hours, Initiate Septic Shock Protocol. Blood Structure of peripheral vein / Unknown Venipuncture / Unknown 06/04/2024 10:41 PM EST 06/04/2024 10:50 PM EST Marco Antonio STEWART LAB BLOOD ORDERABLES Final Res ult Performing Organization Address [facility] Co de Phone Number [facility] [address] [place] [phone], * Type and screen (06/04/2024 10:37 PM EST) Only the most recent of2 resultswithin the time period is included. ABO Blood Type O 06/04/2024 11:40 PM EST [facility] RH Type Positive 06/04/2024 11:40 PM EST [facility] Expiration Date/Time 2024-06-07 23:59 06/04/2024 11:40 PM EST [facility] Antibody Screen Negative 06/04/2024 11:40 PM EST [facility] Blood Structure of peripheral vein / Unknown Venipuncture / Unknown 06/04/2024 10:37 PM EST 06/04/2024 10:59 PM EST Marco Antonio STEWART LAB BLOOD BANK TEST ORDERABLES Edited Result - Final Performing Organization Address [facility]/ZIP Co de Phone Number [facility] [address] [place] [address], [place] [phone] * Von Willebrand Antigen (06/04/2024 11:04 AM EST) Pathologist [facility] Von Willebrand Factor Antigen 111 50 - 217 % 06/06/2024 1:04 PM EST [facility] MA[facility] (ADAM) Blood Structure of peripheral vein / Unknown Venipuncture / Unknown 06/04/2024 11:04 AM EST 06/04/2024 11:14 AM EST Matthew MAZA ([facility]) - 06/06/2024 1:04 PM EST [facility] Received Date:[id number] Eliazar Morgan MD LAB BLOOD ORDERABLES Final Res ult Performing Organization Address [facility] Co de Phone Number [facility] MAZA [employer]) [address] [place], [place] , [place] * Factor 8 Ristocetin Cofactor (06/04/2024 11:04 AM EST) Pathologist [facility] Ristocetin Cofactor 68 42 - 200 % normal 06/07/2024 3:08 PM EST BARRETT MAZA ([facility]) Blood Structure of peripheral vein / Unknown Venipuncture / Unknown 06/04/2024 11:04 AM EST 06/04/2024 11:14 AM EST Matthew LEE) - 06/07/2024 3:08 PM EST [facility] Received Date:[id number] Eliazar Morgan MD LAB BLOOD ORDERABLES Final Res ult Performing Organization Address City/[facility] Co de Phone Number BARRETT LEE) [address] [place], [place] , [place] * (ABNORMAL) Manual Differential (06/04/2024 9:57 AM EST) Only the most recent of2 resultswithin the time period is included. Pathologist [facility] Neutrophil %, Manual 67 % 06/04/2024 11:00 AM EST [facility] Band % 1 0 - 7 % 06/04/2024 11:00 AM EST [facility] Lymphocyte %, Manual 18 % 06/04/2024 11:00 AM EST [facility] Monocyte %, Manual 9 % 06/04/2024 11:00 AM EST [facility] Eosinophil %, Manual 0 % 06/04/2024 11:00 AM EST [facility] Basophil %, Manual 1 % 06/04/2024 11:00 AM EST [facility] Reactive Lymphocyte % 4 0 - 6 % 06/04/2024 11:00 AM EST [facility] Total Neutrophil #, Manual 6.94 1.50 - 7.80 10*3/uL 06/04/2024 11:00 AM EST [facility] Bands #,Manual 0.10 10*3/uL 06/04/2024 11:00 AM EST [facility] Total Lymph #, Manual 2.24 0.85 - 3.90 10*3/uL 06/04/2024 11:00 AM EST [facility] Monocyte #, Manual 0.92 0.20 - 0.95 10*3/uL 06/04/2024 11:00 AM EST [facility] Eosinophil #, Manual 0.00(L) 0.02 - 0.50 10*3/uL 06/04/2024 11:00 AM EST [facility] Basophil #, Manual 0.10 0.00 - 0.20 10*3/uL 06/04/2024 11:00 AM EST [facility] Reactive Lymphocytes # 0.41 10*3/uL 06/04/2024 11:00 AM EST [facility] Platelet Estimate Increased (A) Adequate 06/04/2024 11:00 AM EST [facility] RBC Morphology Normal Normal, No clinically significant RBC morphology present (ICSH guidelines, 2015). 06/04/2024 11:00 AM EST [facility] Total Cells Counted 114 06/04/2024 11:00 AM EST [facility] Blood Structure of peripheral vein / Unknown Venipuncture / Unknown 06/04/2024 9:57 AM EST 06/04/2024 10:05 AM EST Chelsea Salinas MD LAB BLOOD ORDERABLES Final Resul t [facility] [address] [place] [address], [place] * Moreno (SM) Antibody (06/04/2024 3:44 AM EST) Sm Antibody <1.0 NEG <1.0 NEG AI 06/04/2024 2:23 PM EST [facility] Blood Structure of peripheral vein / Unknown Venipuncture / Unknown 06/04/2024 3:44 AM EST 06/04/2024 4:03 AM EST Narrative [facility] 06/04/2024 2:23 PM EST [facility] Received Date: us Chelsea Salinas MD LAB BLOOD ORDERABLES Final Resul t Performing Organization Address City/[facility]/ZIP Co de Phone Number [facility] [address] [facility] [address] [facility], [place] [address], [place] [phone] [facility] [address], [place] [address], [place] [phone] * (ABNORMAL) Iron Saturation (06/04/2024 3:44 AM EST) Iron Saturation 11(L) 20 - 50 % 8:48 AM EST [facility] Iron 26(L) 30 - 160 ug/dL 06/04/2024 8:48 AM EST [facility] Transferrin 192(L) 200 - 360 mg/dL 06/04/2024 8:48 AM EST [facility] Total Iron Binding Capacity 240(L) 255 - 450 ug/dL 06/04/2024 8:48 AM EST [facility] Blood Structure of peripheral vein / Unknown Venipuncture / Unknown 06/04/2024 3:44 AM EST 06/04/2024 4:03 AM EST us Chelsea Salinas MD LAB BLOOD ORDERABLES Final Resul t [facility] [address] [place] [address], * Paraneoplastic Antibody Evaluation w/Reflex to Titer and Line Blot, Basic, Serum (06/04/2024 3:44 AM EST) Tissue IFA Observation(s) SEE NOTE 06/14/2024 3:40 AM EST [facility] [place] Comment: Staining of HEp2 cells suggests nuclear non-neuronal specific antibodies are present. ?? No fluorescence observed on neuronal tissue. ANNA1 (HU) Ab, IFA NEGATIVE NEGATIVE 2024 3:40 AM EST [facility] [place] ANNA2 (RI) AB, IFA NEGATIVE NEGATIVE 2024 3:40 AM EST [facility] [place] [place] ANNA3 AB, IFA NEGATIVE NEGATIVE 06/14/2024 3:40 AM EST [facility] PCA1 (YO) AB, IFA NEGATIVE NEGATIVE 025 3:40 AM EST [facility] [place] [place] PCA2 Ab, IFA NEGATIVE NEGATIVE 06/14/2024 3:40 AM EST [facility] [place] [place] SUMMER CLERK TR (DNER) Ab, IFA NEGATIVE NEGATIVE 06/14/2024 3:40 AM EST [facility] [place] AGNA/SOX1 Ab, IFA NEGATIVE NEGATIVE 025 3:40 AM EST [facility] Amphiphysin Ab, IFA NEGATIVE NEGATIVE 06/14/2024 3:40 AM EST [facility] CR[facility]/CV2 AB, IFA NEGATIVE NEGATIVE 025 3:40 AM EST [facility] Comment: The absence of detectable anti-neuronal autoantibodies in this test does not exclude an idiopathic or paraneoplastic autoimmune neurological disorder. Additional testing, including cell-based assays for antibodies to surface antigens, may be indicated. Testing using both CSF and serum increases sensitivity for detection. For additional information, please refer to https://[email or web address]/has453 (This link is being provided for informational/educational purposes only.) This test was developed and its analytical performance characteristics have been determined by [facility]. It has not been cleared or approved by FDA. This assay has been validated pursuant to the CLIA regulations and is used for clinical purposes. Striated Muscle Ab Screen NEGATIVE NEGATIVE 06/14/2024 3:40 AM EST [facility] Comment: This test was developed and its analytical performance characteristics have been determined by [facility]. It has not been cleared or approved by FDA. This assay has been validated pursuant to the CLIA regulations and is used for clinical purposes. Voltage Gated Calcium Channel (VGCC) Type P/Q Ab <30 <30 pmol/L 06/14/2024 3:40 AM EST [facility] Voltage Gated Potassium Channel (VGKC) Ab <80 <80 pmol/L 06/14/2024 3:40 AM EST [facility] Comment: This test was developed and its analytical performance characteristics have been determined by [facility]. It has not been cleared or approved by FDA. This assay has been validated pursuant to the CLIA regulations and is used for clinical purposes. Acetylcholine Receptor Ganglionic (Alpha 3) Ab <55 <55 pmol/L 06/14/2024 3:40 AM EST [facility] Comment: Reference Ranges for Acetylcholine Receptor Ganglionic Antibody: Negative: ?? <55 pmol/L Borderline: 55-160 pmol/L Positive: ?? >160 pmol/L This test was developed and its analytical performance characteristics have been determined by [facility]. It has not been cleared or approved by FDA. This assay has been validated pursuant to the CLIA regulations and is used for clinical purposes. Voltage Gated Calcium Channel (VGCC) Type N Ab <54 <54 pmol/L 06/14/2024 3:40 AM EST [facility] Comment: This test was developed and its analytical performance characteristics have been determined by [facility]. It has not been cleared or approved by FDA. This assay has been validated pursuant to the CLIA regulations and is used for clinical purposes. Acetylcholine Receptor Binding Antibody <0.30 nmol/L 06/14/2024 3:40 AM EST [facility] Comment: Reference Ranges for Acetylcholine Receptor ??Binding Antibody: Negative: < or =0.30 nmol/L Equivocal: ??0.31-0.49 nmol/L Positive: > or =0.50 nmol/L Blood Structure of peripheral vein / Unknown Venipuncture / Unknown 06/04/2024 3:44 AM EST 06/04/2024 4:03 AM EST Narrative [facility] - 06/14/2024 3:40 AM EST [facility] Received Date: us Chelsea Salinas MD LAB BLOOD ORDERABLES Final Resul t [facility] [address] [facility] 3rd Floor, [place] [address], [place] [phone] [facility] [address] [place] [address], [place] [phone] * AMADOU Screen, IFA, w/Reflex to Titer & Pattern (06/04/2024 3:44 AM EST) [facility] AMADOU Screen, IFA NEGATIVE NEGATIVE 9:35 AM EST [email or web address] [facility] Comment: AMADOU IFA is a first [...] AC-0: Negative International Consensus on AMADOU Patterns (https://doi.org/10.1515/nrof-3977-2748) For additional information, please refer to http://education.Inductly/faq/BAL997 (This link is being provided for informational/ educational purposes only.) ?? Blood Structure of peripheral vein / Unknown Venipuncture / Unknown 06/04/2024 3:44 AM EST 06/04/2024 4:02 AM EST Narrative [facility] - 06/08/2024 9:35 AM EST [facility] Received Date: us Chelsea Salinas MD LAB BLOOD ORDERABLES Final Resul t [facility] [address] [facility] 3rd Floor, [place] [address], [facility] [address] [facility] 3[address] Floor, [place] [address], * DNA Antibody, Double-stranded (06/04/2024 3:44 AM EST) DNA (Ds) Antibody <1 IU/mL 025 7:07 AM EST [facility] Comment: ? IU/mL ? Interpretation ? < or = 4 ?Negative ? 5-9 ? Indeterminate ? > or = 10 ?? Positive Blood Structure of peripheral vein / Unknown Venipuncture / Unknown 06/04/2024 3:44 AM EST 06/04/2024 4:02 AM EST Narrative [email or web address] [facility] - 06/07/2024 7:07 AM EST [facility] Received Date:[id number] Chelsea Salinas MD LAB BLOOD ORDERABLES Final Resul t Performing Organization Address [facility] de Phone Number [facility] [address] [facility] [address] [facility], [place] [address], [place] [phone] [facility] [address] [facility] 3rd Floor, [place] [address], [place] [phone] * Aldolase (06/04/2024 3:44 AM EST) Aldolase 4.7 <=8.1 U/L 06/08/2024 2:5 8 AM EST [employer] ([employer]) Blood Structure of peripheral vein / Unknown Venipuncture / Unknown 06/04/2024 3:44 AM EST 06/04/2024 4:02 AM EST Narrative [email or web address] [facility] - 06/08/2024 2:58 AM EST [facility] Received Date:[id number] us Chelsea Salinas MD LAB BLOOD ORDERABLES Final Resul t Performing Organization Address City/[facility] Co de Phone Number [facility] [address], [place] [address], [place] [phone] [facility] Globe [employer] ([employer]) [address] [place], [place] , * [employer] Antibody (06/04/2024 3:44 AM EST) [employer] Antibody <1.0 NEG <1.0 NEG AI 06/07/2024 7:07 AM EST [facility] Blood Structure of peripheral vein / Unknown Venipuncture / Unknown 06/04/2024 3:44 AM EST 06/04/2024 4:02 AM EST Narrative [email or web address] [facility] - 06/07/2024 7:07 AM EST [facility] Received Date: Chelsea Salinas MD LAB BLOOD ORDERABLES Final Resul t [facility] [address] [facility] [address] [facility], [place] [address], [place] [phone] [facility] [address] [facility] 3rd Floor, [place] [address], [place] [phone] * (ABNORMAL) Vitamin D 1,25 Dihydroxy (06/04/2024 3:44 AM EST) [facility] Vitamin D,1,25 (OH)2,Total 17(L) 18 - 72 pg/mL 06/07/2024 5:16 PM EST [facility] ([facility]) Vitamin D3, 1,25 (OH)2 17 pg/mL 06/07/2024 5:16 PM EST [facility] ([employer]) Vitamin D2, 1,25 (OH)2 <8 pg/mL 06/07/2024 5:16 PM EST [employer] ([employer]) Comment: Vitamin D3, 1,25(OH)2 indicates both endogenous production and supplementation. Vitamin D2, 1,25(OH)2 is an indicator of exogenous sources, such as diet or supplementation. ??Interpretation and therapy are based on measurement of Vitamin D,1,25(OH)2, Total. This test was developed and its analytical performance characteristics have been determined by [facility], [place], [place]. It has not been cleared or approved by the FDA. This assay has been validated pursuant to the CLIA regulations and is used for clinical purposes. Blood Structure of peripheral vein / Unknown Venipuncture / Unknown 06/04/2024 3:44 AM EST 06/04/2024 4:02 AM EST Narrative [facility] - 06/07/2024 5:16 PM EST [facility] Received Date: Chelsea Salinas MD LAB BLOOD ORDERABLES Final Resul t [facility] [address], [place] [address], [place] [phone] [email or web address] WAYNE (BRUNER) [address] [place] [address], [place] * (ABNORMAL) Complement C3 (06/04/2024 3:44 AM EST) Complement Component C3C 248(H) 83 - 193 mg/dL 06/05/2024 2:15 PM EST [facility] Blood Structure of peripheral vein / Unknown Venipuncture / Unknown 06/04/2024 3:44 AM EST 06/04/2024 4:02 AM EST Narrative [facility] - 06/05/2024 2:15 PM EST [facility] Received Date: us Chelsea Salinas MD LAB BLOOD ORDERABLES Final Resul t Performing Organization Address City/[facility]/ZIP Co de Phone Number [facility] [address] [facility] [address] [facility], [place] [address], [place] [phone] [facility] [address] [facility] [address] [facility], [place] [address], [place] [phone] * Complement C4 (06/04/2024 3:44 AM EST) Complement Component C4C 42 15 - 57 mg/dL 06/05/2024 2:15 PM EST [facility] Blood Structure of peripheral vein / Unknown Venipuncture / Unknown 06/04/2024 3:44 AM EST 06/04/2024 4:02 AM EST Narrative [facility] - 06/05/2024 2:15 PM EST [facility] Received Date:[id number] us Chelsea Salinas MD LAB BLOOD ORDERABLES Final Resul t [facility] [address] [facility] [address]rd Floor, [place] [address], [place] [phone] [facility] [address] [facility] 3rd Floor, [place] [address], [place] [phone] * (ABNORMAL) Ferritin (06/04/2024 3:44 AM EST) Ferritin 451.0(H) 11.0 - 306.0 ng/mL 06/04/2024 8:48 AM EST [facility] Blood Structure of peripheral vein / Unknown Venipuncture / Unknown 06/04/2024 3:44 AM EST 06/04/2024 4:03 AM EST Chelsea Salinas MD LAB BLOOD ORDERABLES Final Resul t Performing Organization Address City/[facility]/ZIP Co de Phone Number [facility] [address] [place] [address] * Rheumatoid Factor (06/03/2024 6:19 PM EST) Rheumatoid Factor <10 <14 IU/mL 06/04/2024 5:10 PM EST [facility] Blood Implantable venous catheter submitted as specimen / Unknown Venipuncture / Unknown 06/03/2024 6:19 PM EST 06/03/2024 6:36 PM EST Narrative [facility] - 06/04/2024 5:10 PM EST [facility] Received Date: Chelsea Salinas MD LAB BLOOD ORDERABLES Final Resul t Performing Organization Address City/[facility]/ZIP Co de Phone Number [facility] [address] [facility] 3rd Floor, [place] [address], [place] [phone] [facility] [address] [facility] 3rd Floor, [place] [address], [place] [phone] * Lactate dehydrogenase (06/03/2024 6:19 PM EST) Pathologist [facility] LDH 188 135 - 225 U/L 06/03/2024 7:06 PM EST [facility] Blood Implantable venous catheter submitted as specimen / Unknown Venipuncture / Unknown 06/03/2024 6:19 PM EST 06/03/2024 6:36 PM EST us Chelsea Salinas MD LAB BLOOD ORDERABLES Final Resul t [facility] [address] [place] [address], [place] * MRI Cervical Spine W WO Contrast (06/03/2024 9:05 AM EST) Anatomical Region Laterality Modality Spine, C-spine Magnetic Resonan ce 06/03/2024 8:30 AM EST Impressions 06/03/2024 2:11 PM EST Degraded study by motion artifact. There is [...] obtain the completed interpretation. ? Workstation ID: [id number] Narrative 06/03/2024 2:11 PM EST EXAMINATION: MRI [...] in patient with recent bacteremia COMPARISON: ??None Resulting Agency Comment [id number] Procedure Note Hollis French MD - 06/03/2024 EXAMINATION: MRI of cervical spine [...] cervical spine is otherwise preserved. Diffuse low H7sqnodt intensity is present of osseous structures. This is nonspecific,possibly representing rebound red marrow in the setting of chronic anemia.Other diffuse infiltrative bone marrow processes may potentially have asimilar appearance. No bone marrow signal abnormality is [...] possible to obtain thecompleted interpretation. Workstation ID: [id number] us Bin Fairchild MD IMG MRI PROCEDURES Final Resul t * MRI Thoracic Spine with and without Contrast (06/03/2024 8:35 AM EST) Anatomical Region Laterality Modality Spine, T-spine Magnetic Resonan ce 06/03/2024 8:00 AM EST Impressions 06/03/2024 2:11 PM EST Degraded study by motion artifact. There is [...] obtain the completed interpretation. ? Workstation ID: [id number] Narrative 06/03/2024 2:11 PM EST EXAMINATION: MRI [...] in patient with recent bacteremia COMPARISON: ??None Resulting Agency Comment [id number] Procedure Note Hollis French MD - 06/03/2024 EXAMINATION: MRI of cervical spine [...] cervical spine is otherwise preserved. Diffuse low Q8gyyayy intensity is present of osseous structures. This is nonspecific,possibly representing rebound red marrow in the setting of chronic anemia.Other diffuse infiltrative bone marrow processes may potentially have asimilar appearance. No bone marrow signal abnormality is [...] possible to obtain thecompleted interpretation. Workstation ID: [id number] Bin Fairchild MD IM MRI PROCEDURES Final Resul t * MRI Lumbar Spine W WO Contrast (06/03/2024 8:05 AM EST) Anatomical Region Laterality Modality Spine, L-spine Magnetic Resonan ce 06/03/2024 7:30 AM EST Impressions 06/03/2024 12:03 PM EST No evidence of discitis/osteomyelitis in the lumbar spine. No epidural collections or cauda equina compression. Mild L5-S1 disc degeneration without significant spinal canal or neural foraminal narrowing. If this radiology report contains a blank impression section, it is an incomplete radiology report. ??Please contact the interpreting radiologist or applicable radiology division as soon as possible to obtain the completed interpretation. ? Workstation ID: [id number] Narrative 06/03/2024 12:03 PM EST INDICATION: Proximal [...] muscles and soft tissues: Within normal limits. Resulting Agency Comment [id number] Procedure Note Reyna Ortiz MD - 06/03/2024 INDICATION: Proximal muscle weakness. Bacteremia. [...] possible to obtain thecompleted interpretation. Workstation ID: [id number] Bin Fairchild MD IMG MRI PROCEDURES Final Resul t * Blood Culture, Peripheral #2 (06/02/2024 4:42 PM EST) Only the most recent of2 resultswithin the time period is included. Culture No growth after 5 days 06/07/2024 8:51 PM EST [facility] Blood Structure of peripheral vein / Unknown Venipuncture / Unknown 06/02/2024 4:42 PM EST 06/02/2024 4:42 PM EST Narrative [facility] - 06/07/2024 8:51 PM EST [facility] Received Date: MICRO NUMBER: [id number] SPECIMEN QUALITY: Adequate SOURCE: BLOOD VENOUS, PERIPHERAL STATUS: FINAL COMMENT: Aerobic and anaerobic bottle received. Bin Fairchild MD LAB MICROBIOLOGY - GENERAL ORD ERABLES Final Result [facility] [address] [facility] [address] [facility], [place] [address], [place] [phone] [facility] [address], [place] [address], [place] [phone] * (ABNORMAL) Creatine Kinase (06/02/2024 12:03 PM EST) Pathologist [facility] CK 35(L) 38 - 206 U/L 06/02/2024 12:40 PM EST [facility] Blood Structure of peripheral vein / Unknown Venipuncture / Unknown 06/02/2024 12:03 PM EST 06/02/2024 12:11 PM EST Bin Fairchild MD LAB BLOOD ORDERABLES Final Res ult [facility] [address] [place] [address], * TSH Reflex Free T4 (06/02/2024 8:13 AM EST) Pathologist [facility] TSH 2.910 0.280 - 3.890 uIU/mL 06/02/2024 12:39 PM EST [facility] Comment: Females: 1st trimester ? 0.150-4.000 ??IU/mL 2nd trimester ?? 0.310-4.170 ?IU/mL 3rd trimester ?0.380-4.150 ?IU/mL Blood Structure of peripheral vein / Unknown Venipuncture / Unknown 06/02/2024 8:13 AM EST 06/02/2024 8:22 AM EST us Bin Fairchild MD LAB BLOOD ORDERABLES Final Res ult [facility] [address] [place] [address], * (ABNORMAL) CBC (06/02/2024 8:13 AM EST) WBC 11.9(H) 3.8 - 10.8 10*3/uL 06/02/2024 8:29 AM EST [facility] RBC 3.57(L) 3.80 - 5.10 10*6/uL 06/02/2024 8:29 AM EST [facility] Hemoglobin 9.8(L) 11.7 - 15.5 g/dL 06/02/2024 8:29 AM EST [facility] Hematocrit 31.3(L) 35.0 - 45.0 % 06/02/2024 8:29 AM EST [facility] MCV 87.7 80.0 - 100.0 fL 06/02/2024 8:29 AM EST [facility] MCH 27.5 27.0 - 33.0 pg 06/02/2024 8:29 AM EST [facility] MCHC 31.3(L) 32.0 - 36.0 g/dL 06/02/2024 8:29 AM EST [facility] RDW 14.4 11.0 - 15.0 % 06/02/2024 8:29 AM EST [facility] Platelets 739(H) 140 - 400 10*3/uL 06/02/2024 8:29 AM EST [facility] MPV 8.4 7.5 - 12.5 fL 06/02/2024 8:29 AM EST [facility] Blood Structure of peripheral vein / Unknown Venipuncture / Unknown 06/02/2024 8:13 AM EST 06/02/2024 8:22 AM EST us uJma Hernandez MD LAB BLOOD ORDERABLES Final R esult [facility] [address] [place] [address], [place] * CT Abd Pelvis W Contrast (06/01/2024 4:23 PM EST) Anatomical Region Laterality Modality Body Computed Tomogra phy 06/01/2024 4:41 PM EST Addenda Addendum by Mirna Haney MD on 06/01/2024 5:47 PM EST COMMUNICATION: The findings were communicated via Alea secure chat acknowledged by Dr. Khan at 5:35 PM on 06/01/2024. If this radiology report contains a blank impression section, it is an incomplete radiology report. ??Please contact the interpreting radiologist or applicable radiology division as soon as possible to obtain the completed interpretation. ? Workstation ID: [id number] Impressions 06/01/2024 5:13 PM EST 1. Segmental pulmonary embolism in the left [...] the ordering or responsible provider via the Adsame system on 06/01/2024 5:05 PM. ??Receipt of this communication by the responsible provider will be documented in Adsame upon receiving acknowledgement if applicable, Message ID [id number]. If this radiology report contains a blank impression section, it is an incomplete radiology report. ??Please contact the interpreting radiologist or applicable radiology division as soon as possible to obtain the completed interpretation. ? Workstation ID: [id number] Narrative 06/01/2024 5:13 PM EST COMPARISON: None ?? FINDINGS: Evaluation of the lung bases reveals a group of nodules, each measuring approximately 10-11 mm in the left lower lobe. A nonocclusive filling defect in a segmental pulmonary arterial branch of the left lower lobe is also seen (series 2020, images 12-17), consistent with pulmonary embolism. The [...] x 0.8 cm (series 201, image 145). Resulting Agency Comment [id number] us Luz Fisher MD IMG CT PROCEDURES Edited Result - Final * Yellow Top (06/01/2024 1:24 PM EST) Extra Tube Hold for add-ons. 06/01/2024 6:05 PM EST [facility] Comment:Auto resulted. Urine Urine specimen collection, clean catch / Unknown 06/01/2024 1:24 PM EST 06/01/2024 1:24 PM EST Luz Fisher MD LAB BLOOD ORDERABLES Sherly l Result Performing Organization Address City/[facility]/ZIP Co de Phone Number [facility] [address] [place] [address], [place] * Clemente Top, Urine (06/01/2024 11:09 AM EST) Extra Tube Hold for add-ons. 06/01/2024 4:05 PM EST [facility] Comment:Auto resulted. Urine Urine specimen collection, clean catch / Unknown Non-Blood Collection / Unknown 06/01/2024 11:09 AM EST 06/01/2024 1:23 PM EST Luz Fisher MD LAB URINE ORDERABLES Sherly l Result Performing Organization Address City/[facility]/ZIP Co de Phone Number [facility] [address] [place] [address], [place] * (ABNORMAL) Urinalysis W/Reflex to Microscopic & Culture (06/01/2024 11:09 AM EST) Color, Urine Red(A) Colorless, Light Yellow, Yellow, Dark Yellow 06/01/2024 1:47 PM EST [facility] Clarity, Urine Cloudy(A) Clear 06/01/2024 1:47 PM EST [facility] Specific Macy, Urine 1.015 1.005 - 1.030 06/01/2024 1:47 PM EST [facility] pH, Urine 6.0 4.6 - 8.0 06/01/2024 1:47 PM EST [facility] Protein, Urine 2+(A) Negative 06/01/2024 1:47 PM EST [facility] Glucose, Urine Negative Negative 06/01/2024 1:47 PM EST [facility] Ketones, Urine Negative Negative 06/01/2024 1:47 PM EST [facility] Bilirubin, Urine Negative Negative 06/01/2024 1:47 PM EST [facility] Blood, Urine 3+(A) Negative 06/01/2024 1:47 PM EST [facility] Nitrite, Urine Negative Negative 06/01/2024 1:47 PM EST [facility] Urobilinogen, Urine Normal Normal 06/01/2024 1:47 PM EST [facility] Leukocyte Esterase, Urine Negative Negative 06/01/2024 1:47 PM EST [facility] WBC, Urine 0 0 - 2 /HPF 06/01/2024 1:47 PM EST [facility] RBC, Urine >180(H) 0 - 2 /HPF 06/01/2024 1:47 PM EST [facility] Hyaline Casts, Urine 0 0 - 2 /LPF 06/01/2024 1:47 PM EST [facility] Bacteria, Urine None None /HPF /HPF 06/01/2024 1:47 PM EST [facility] Mucus, Urine Few /LPF 06/01/2024 1:47 PM EST [facility] Urine Urine specimen collection, clean catch / Unknown Non-Blood Collection / Unknown 06/01/2024 11:09 AM EST 06/01/2024 1:23 PM EST us Luz Fisher MD LAB URINE ORDERABLES Sherly nasrin Result [facility] [address] [place] [address], * Pap w/HPV (05/25/2011 9:53 AM EST) Path Procedure HPV (515879) 1 ?? [id number] 1 ?? TPGAS (067328) 1 ?? Edited by: [id number] NANDA ?? [id number] - 1243 [id number] ?? [id number] - 1332 [facility] Specimen Labeled As: 1 CERVICAL/ENDOCERVI LAVELLE CYTO MATERIAL - Edited by: [id number] [facility] Additional Test Information Specimens were tested for high risk HPV using the FDA approved Digene Hybrid ?? Capture II kit, in the Diagnostic Molecular Oncology Lab at [facility] ?? Health Care. ??This test can detect HPV high risk types 16, 18, 31, 33, 35, 39, ?? 45, 51, 52, 56, 58, 59 and 68. ? High-risk subtypes of HPV are found in ~96% of patients with high grade ?? squamous intraepithelial lesions and cervical squamous cell carcinoma. ?? Additional studies may be indicated in spite of a negative HPV test, e.g. ?? in patients with a friable cervix or multiple previous abnormal Pap tests. ??HPV ?? testing is not recommended for managing patients with atypical glandular cells. ?? Not all high-risk HPV infections are associated with a histologic or cytologic ?? abnormality. ??We endorse the recommendations of the [place] Society for ?? Colposcopy and Cervical Pathology for management of Pap test results, available ?? at www.asccp.org. ? ASCCP guidelines also recommend HPV 16/18 genotyping in patients over the age ?? of 30 who have had positive high risk HPV testing, but have a negative ?? morphologic Pap test (http://www.asccp. org/consensus.shtm l). ? The performance characteristics of this test have been validated by the ?? [facility]. ??They have not been cleared or ?? approved by the U.S. ??Food and Drug Administration (FDA). The FDA has ?? determined that such clearance or approval is not necessary. ??The laboratory is ?? certified (CLIA-88) to perform high complexity clinical laboratory testing. ?? Edited by: [id number] [facility] - [facility] Diagnosis Thinprep Pap Test ? Adequacy: ??Satisfactory for evaluation ? Interpretation: EPITHELIAL CELL ABNORMALITY - SQUAMOUS ? Low Grade Squamous Intraepithelial Lesion ? This Pap test was examined by the ThinPrep Imaging System, [employer], [place], [place]. ?- High risk HPV DNA subtypes: POSITIVE ?? Edited by: [id number] ?? [id number] [facility] ANATOM[facility]OLOG[facility] - [facility] Gynecologic Clinical Data Specimen source:, THINPREP (VAGINAL, CERVICAL AND ENDOCERVICAL) [facility] - [facility] Gynecologic Clinical Data First date of LMP:, 05/17/11 [facility] - [facility] Pathology Codes Client Order Code:, TPHS3 [facility] - [facility] Pathology Codes Bill Type:, 3RD CONSTITUTION PARTY BILLING [facility] - [facility] Data Sent To Pathologist SENT TO PATHOLOGIST ON 06/02/11 AT 1250 ?? Edited by: [id number] 1249 [facility] - [facility] Completed Report CYTOPATH; BAGGING SALVAGER PHYSICIAN INT 1 ?? CYTOPATH C/V AUTORESCR SCR 1 [facility]AT[facility] - [facility] Marker 1 ECA,EPITHELIAL CELL ABNORMALITIES [facility]ATOM[facility] PATHOLOGY - [facility] Marker 2 [facility] ANATOMIC PATHOLOGY - BI[facility] THREE Marker 3 LGSIL,CT LGSIL [facility]ATOM[facility] PATHOLOGY - [facility] Marker 4 PHPV,POSITIVE HPV [facility] ANATOMIC PATHOLOGY - [facility] THREE Marker 5 RIM,RECEIVED IN MOLECULAR [facility] ANATOM[facility] PATHOLOGY - [facility] THREE Marker 6 SW,JELLY REAL [facility] ANATOMIC PATHOLOGY - [facility] THREE Cc Results To OBDULIA CASTORENA OBG [id number] [facility]AT[facility] - [facility] Signature REPORT SIGNED: REY NEWMAN MD 06/03/11 [facility] - [facility] Sign Out Audit REY NEWMAN MD [id number] FINAL Y ADD [id number] [facility] - [facility] Cytology / Unknown 9:53 AM EST 05/27/2011 9:53 AM EST us Immanuel Hogue MD LAB HISTORICAL RESULTS Final R esult [facility] - [facility] [address] [place] [phone], from Last 3 Months or Most Recently Relevant to Health Maintenance Insurance 2 04/26 [facility] [place] [address] [facility] Advance Directives Documents on File Type Date Recorded Patient Child Care Coordinator Expl anation Health Care Proxy 06/08/2024 9:30 AM Patrick Vázquez 07-1 * Full Code (Latest Code Status on File) Date Activated Date Inactivated Comments 06/01/2024 10:16 PM 06/09/2024 12:53 AM * Full Code Date Activated Date Inactivated Comments 06/01/2024 8:17 PM 06/01/2024 10:16 PM Healthcare Agents on File Name Relationship Healthcare Agent Relationshi p Communication Patrick Stgermain Spouse Health Care Agent Care Teams Process Inspector Relationship Specialty Start Date End Date Alfreda Costa [address] [place] [address] PCP - General Internal Medicine 06/01/24
--- OUTSIDE RECORDS SUMMARY | 2024-06-25 19:21 | XMS_ITS | Encounter Summary ---
Demographics Address [address] [place] [address] Mobile Phone Home Phone Email Address [email or web address] Preferred Language Iraqi Marital Status Anabaptist Affiliation Unknown Race White Ethnic Group Unknown Author Organization [facility] Address [address] [place] [address] Support Name Relationship Address Phone [place] [facility] Emergency Contact 2 [address] [place] [address] Shana Danielle Emergency Contact [address] [place] [address] Care Team Providers Care Tool Room Machinist Name Role Phone Alfreda Costa Primary Care Provider [phone] Leela Nieto CASH CONTROL SPECIALIST Unavailable Unavailable Reason for Visit * Reason Comments Denial Encounter Details Date Type Department Care Team (Late st Contact Info) Description 07/30/2021 Telephone CALL CENTER [facility] [address] [place] [address] Ramakrishna Whitt MD [address] [place] [id number] Denial Social History Tobacco Use Types Packs/Day Years [...] encounter Miscellaneous Notes * Telephone Encounter - Bibiana Johnson - 07/30/2021 10:18 AM EDT FROM: Radiology Benefits Coordination Your request for a MRI of the BRAIN has been denied by [facility] based on their imaging guide lines. WE HAVE NOT YET RECEIVED A FAX REASONING FOR THIS DENIAL, A LETTER WILL BE SENT BY THE INSURANCE COMPANY, ONE OF YOUR MEDICAL STAFF MEMBERS MAY CALL YOU HAVE A LIMITED AMOUNT OF TIME TO RESPOND TO THE INSURANCE COMPANY. THESE RULES ARE MADE BY THE INSURER, NOT BY [facility] You, as well as the patient, will be receiving a letter of explanation in the mail. If you wish to appeal this decision, please call within 48 hours and reference order id # [id number].If you do appeal this decision, please notify me of the outcome so we can schedule the patient accordingly. IF A DENIAL IS NOT APPEALED, YOU MUST DOCUMENT, VIA A NOTE AND ROUTE TO THE RADIOLOGY TECHNOLOGY RESOURCE TEACHER POOL, WHY YOU DID NOT APPEAL THE DENIAL. Please route all communication regarding this to the [facility] Benefits Coordination Pool Thank you, Radiology Movement Assembly Final Inspector [id number] documented in this encounter Plan of Treatment Upcoming Encounters Date Type Department Care Team (Late st Contact Info) Description 06/27/2024 11:00 AM EST Office Visit [facility] [address] [place] [address] Deanne Ibarra PA [address] [place] [address] U 08/16/2024 10:25 AM EDT CPE - Comprehensive Physical Exam [facility] [address] [place] [id number] Alfreda Costa DO [address] [place] [address] Physical - LETTER SENT TO [facility] 02/27/2025 1:15 PM EST Radiology [facility] [address] [place] [phone] documented as of this encounter Visit Diagnoses Not on filedocumented in this encounter Care Teams Tool Room Machinist Relationship Specialty Start Date End Date Alfreda Costa DO [address] [place] [address] PCP - General Internal Medicine 09/03/19 Leela Nieto NP [address] [place] [address] PCP - Backup PCP Internal Medicine 09/03/19 11/17/22 documented as of this encounter
--- OUTSIDE RECORDS SUMMARY | 2024-06-25 19:21 | XMS_ITS | Encounter Summary ---
Demographics Address [address] [place] [address] Home Phone Mobile Phone Email Address Preferred Language Citizen Of [place] Marital Status /Civil Union Jainism Affiliation Unknown Race White Ethnic Group Not or Lati no Author Organization [facility] Address [phone] [facility] [place] [address] Care Team Providers Care Energy Consultant Name Role Phone Alfreda Costa DO Primary Care Provider [phone] Encounter Details Date Type Department Care Team (Late st Contact Info) Description 11/15/2022 Procedure Pass [facility] Periop [address] [place] [address] Social History Tobacco Use Types Packs/Day Years [...] documented as of this encounter Care Teams Energy Consultant Relationship Specialty Start Date End Date Alfreda Costa DO [address] [place] [address] [email or web address] PCP - General Internal Medicine 10/12/22 documented as of this encounter Additional Source Comments The information contained in this document represents components of the legal health record. It is not the complete legal health record.[facility]
--- OUTSIDE RECORDS SUMMARY | 2024-06-25 19:21 | XMS_ITS | Encounter Summary ---
Demographics Address [address] [place] [address] Mobile Phone Home Phone Preferred Language Namibian Marital Status Scientologist Affiliation Unknown Race White Ethnic Group Not or Lati no Author Organization [facility] Address [address] [place] [address] Care Team Providers Care Operator Electronic Warfare Name Role Phone Alfreda Costa Primary Care Provider [phone] Reason for Visit * Reason Comments Blood in Urine * Auth/Cert (Routine) Specialty Diagnoses / Procedures Referred By Contac t Referred To Contact Diagnoses Hematuria Referral ID Status Reason Start Date Expiration Date Visits Re quested Visits Authorized [id number] [phone] Encounter Details Date Type Department Care Team (Late st Contact Info) Description 06/01/2024 11:18 AM EST - 06/08/2024 10:47 PM [facility] Hospital Encounter [facility] [address] [place] [address] Luz Fisher MD [address] [place] [address] Cleveland Napoles MD [address] [place] [address] Juma Hernandez MD [address] [place] [address] Tristin Lyn DO [address] [place] [address] Bin Fairchild MD [address] [place] [place] [id number] Eliazar Morgan MD [address] [place] [address] Chelsea Salinas MD [address] [place] [address] Hematuria (Primary Dx) Discharge Disposition: Inpatient Rehab Facility (IRF) (62) Social History Tobacco Use Types Packs/Day Years [...] Sign Reading Time Taken Comments Blood Pressure 90/47 06/08/2024 2:55 PM EST Pulse 65 06/08/2024 2:55 PM EST Temperature 37 ??C (98.6 ??F) 06/08/2024 2:55 PM EST Respiratory Rate 18 06/08/2024 4:32 PM EST Oxygen Saturation 92% 06/08/2024 2:55 PM EST Inhaled Oxygen Concentration - - Weight 68.2 kg (150 lb 5.7 oz) 06/07/2024 5:00 A M EST Height 163.8 cm (5' 4.49 ) 06/05/2024 6:43 AM ES T Body Mass Index 25.42 06/05/2024 6:43 AM EST documented in this encounter Discharge Summaries * Luann Cuellar MD - 06/08/2024 4:54 PM EST Images from the original note were not included. DISCHARGE SUMMARY [facility] DISCHARGE INFORMATION: Date and Time of Admission: 06/01/2024 8:17 PM Date of Discharge: 06/08/24 DISCHARGE DIAGNOSIS: Problem List Active Problems * (Principal) Gait instability Anemia Anxiety Hematuria Hyperlipidemia Left leg weakness Osteomyelitis of pelvis (CMS/HCC) (HCC) Pelvic abscess in female Pulmonary nodules Streptococcal bacteremia Thrombocytosis ATTENDING PHYSICIAN ON DISCHARGE: Attending Provider: Eliazar Morgan MD [phone] FOLLOW-UPS AND SCHEDULED APPOINTMENTS: Future Appointments Date Time Provider Department Center 06/20/2024 9:30 AM Herman Sutherland MD MEM INFECT D [facility] CONTACT INFORMATION FOR FOLLOW-UP Alfreda Costa Specialty: Internal Medicine Relationship: PCP - General [facility] Internal Medicine [address] [place] [id number] Next Steps: Follow up Instructions: After discharge from [place]. Herman Sutherland MD Specialty: Infectious Diseases [address] [place] [address] Infectious Diseases [facility] [address] Next Steps: Follow up on 06/20/2024 Instructions: at 9:30 am - Bigg WILSON, [facility], [address] PENDING LABS: . Ordered COMPREHENSIVE MYOSITIS PANEL -OMRF 06/03/24 1532 DISCHARGE MEDICATIONS: Discharge Medication list: [...] HISTORY: Most Recent Immunizations Administered Date(s) Administered Covid-19 Vaccine, J&J, Vector-nr, [id number], PF, 0.5 mL 07/26/2020 Covid-19, Pfizer, mRNA, Monovalent, PF 30 mcg/0.3 mL dose (for ages 12 and older) 04/29/2021 Covid-19, Pfizer, mRNA, Kendrick-sucrose Vaccine, PF, 30 mcg/0.3 mL (for age 12 y and up) 08/08/2023 PRESENTATION INFORMATION: HISTORY OF PRESENT ILLNESS: CHIEF COMPLAINT: Hematuria and difficulty ambulating HISTORY OF PRESENT ILLNESS: History obtained from: Patient and Family Member: 63 years old female, past medical history of MDD, memory loss and pelvic DVT/abscess recently discharged from [facility] after being treated for PE, pelvic DVT and intra-abdominal abscess with IR drainage has returned to the hospital complaining of difficulty getting out of the bed and hematuria. Per records, patient presented to [facility] about 10 days ago with severe pelvic [...] MEDICAL HISTORY: Past Medical History: Diagnosis Date Anxiety Depression High cholesterol Lung nodule s/p resection Syncope PAST SURGICAL HISTORY: Past Surgical History: Procedure Laterality Date LUNG SEGMENTECTOMY 11/15/2022 MGB resection of a spiculated lung lesion; path is neg for malignancy PAST FAMILY HISTORY: Family History Problem Relation Age of Onset Hyperlipidemia Mother Prostate cancer Father Graves' disease Brother Breast cancer Maternal Grandmother Ovarian cancer Maternal Grandmother Lung cancer Maternal Grandfather Graves' disease Paternal Grandmother Breast cancer Paternal Grandmother Bladder Cancer Paternal Grandmother Liver cancer Paternal Grandfather Uterine cancer Father's Sister Ovarian cancer Paternal Great-grandmother PAST SOCIAL HISTORY: [...] wks to be ordered by PCP ID RAMYA Recs: Indication for IV/PO antibiotics: Pelvis Abscess [...] Dr Quarles Outpatient ID fellow/DEBBIE: Dr Koko WILSON[address] [place] [address] Please follow-up at the ID clinic: Dr. Sutherland 06/20 @ 9:30 AM [place] [address], [address] * Gait instability Left leg weakness Assessment [...] the last 1 year. MRI spine demonstrating m ultilevel multifactorial degenerative changes most pronounced at C5-C6 and C6-C7 levels where thereis up to moderate to severe left neural foraminal narrowing and mild spinal canal stenosis, howeverthere is no significant neural foraminal or spinal canal stenosis at the thoracic levels and there is no abnormal signal or postcontrast enhancement through the spinal cord. The degenerative changes s een on imaging are not felt to be consistent with the patient's clinical symptoms. Neurology consulted, feeling that lower extremity weakness on exam is more likely secondary to suprapubic pain, and with encouragement weakness was slightly better prior to previous exams. They do agree with plan forMRI pelvis and MRI brain although have low suspicion for new septic emboli. Patient had TTE with bubble study not demonstrating any vegetation. MRI brain with with and without contrast was performed without any acute intracranial abnormality. Patient's folate and B12 levels within normal limits. 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 W/up: MRI pelvis: several intramuscular abscesses and concern for osteo around pubic symphysis Myositis panel: pending Serum paraneoplastic panel: pending Autoimmune w/up: AMADOU: negative RF: <10 negative SM (raymond): <1.0 negative Anti-dsDNA: negative ROLLER STAKER: negative C3: elevated C4: negative ESR, CRP: elevated Metabolic testing: Aldolase: 4.7 nl VitD: 17 low LDH: 147 [ ] F/up myositis panel, serum paraneoplastic panel Pelvic abscess in female Osteomyelitis of pelvis ([facility]/HCC) ([facility]) Streptococcal bacteremia Assessment & Plan [...] q3h PRN for moderate-severe pain - Senna serafin nightly - Miralax serafin daily - Bisacodyl suppository PRN ID DC [...] Quarles Outpatient ID fellow/DEBBIE: [place] [address] Please follow-up at the ID clinic: Dr. Sutherland 06/20 @ 9:30 AM [place] [address], [address] Thrombocytosis Assessment & Plan Patient was significant [...] Value - Date/Time Blood Culture, Peripheral #1 [[id number]] Collected: 06/02/241641 Lab Status: Final result Specimen: Blood from Venous, Peripheral Updated: 06/07/242051 Culture No growth after 5 days Narrative: [facility] Received Date: MICRO NUMBER: [id number] SPECIMEN QUALITY: Adequate SOURCE: BLOOD VENOUS, PERIPHERAL STATUS: FINAL COMMENT: Aerobic and anaerobic bottle received. Blood Culture, Peripheral #2 [[id number]] Collected: 06/02/241641 Lab Status: Final result Specimen: Blood from Venous, Peripheral Updated: 06/07/242051 Culture No growth after 5 days Narrative: [facility] Received Date: MICRO NUMBER: [id number] SPECIMEN QUALITY: Adequate SOURCE: BLOOD VENOUS, PERIPHERAL [...] possible to obtain the completedinterpretation. Workstation ID: [id number] MRI Brain with and without Contrast Result [...] possible to obtain thecompleted interpretation. Workstation ID: [id number] MRI (MSK) Pelvis W WO Contrast Result Date: 06/06/2024 IMPRESSION: 1. Confluent bone marrow edema centered at the pubic symphysis is concerning for acute osteomyelitis. Small amount of fluid at the pubic symphysis is likely septic. 2. Edema involving thepectineus and adductor muscles, in keeping with myositis with small intramuscular abscesses, the largest within the left adductor brevis muscle. A(n) [place] actionable finding has been communicated to the ordering or responsible provider via the [facility] system on 06/06/2024 9:29 AM. Receipt of this communication by the responsible provider will be documented in Getaround Findings upon receiving acknowledgement if applicable, Message ID [id number]. IEliazar,have reviewed the examination and concur with the findings as reported or so edited. Trainee: Rosa Maria Morales If this radiology report contains a blank impression section, it is an incomplete radiology report. Please contact the interpreting radiologist or applicable radiology division as soon as possible to obtain the completed interpretation. Workstation ID: [id number] CT Chest W Contrast Result Date: 06/05/2024 [...] the ordering or responsible provider via the [facility] system on06/05/2024 1:18 PM. Receipt of this communication by the responsible provider will be documented in Getaround Findings upon receiving acknowledgement if applicable, Message ID [id number]. If this radiology report contains a blank impression section, it is an incomplete radiology report. Please contact the interpreting radiologist or applicable radiology division as soon as possible to obtain the completed interpretation. Workstation ID: [id number] Up-to-date CT equipment and radiation dose reduction [...] to obtain the completed interpretation. Workstation ID: [id number] MRI Lumbar Spine W WO Contrast Result [...] to obtain the completed interpretation. Workstation ID: [id number] Prior Echo Procedures Transthoracic Echo (TTE) Bubble Study Exam End: 06/05/2024 9:39 AM (Final result) Narrative: Normal biventricular size and global systolic function. Estimated LVEF is 70%. No regional wall motion abnormalities. Normal atrial size. No significant valvular disease identified. No interatrial shunt detected by color flow [...] Electronic Signature [1] Social History Socioeconomic History Marital status: Spouse name: Not on file Number of children: Not on file Years of education: Not on file Highest education level: Not on file Occupational History Not on file Tobacco Use Smoking status: Never Smokeless tobacco: Never Substance and Sexual Activity Alcohol use: Never Drug use: Never Sexual activity: Not on file Other Topics Concern Not on file Social History Narrative Not on file Cosigned by Eliazar Morgan MD at 06/08/2024 5:34 PM EST Associated attestation - Eliazar Morgan MD - 06/08/2024 5:34 PM EST I spent 29 minutes performing discharge day services (e.g. examination, discussion of hospital course, follow up care and planning) as appropriate I saw and evaluated the patient on the date of discharge. I reviewed and agree with the resident's documentation. Patient able to obtain bed at [facility] today. Discharged on antibiotics until 07/03. Needs follow up with ID as documented here. Also has incidental cervical spinal stenosis (not causing her symptoms) and pulmonary nodules that will need follow-up with PCP. Dorothy Vázquez : 1960 CSN: [id number] documented in this encounter Discharge Instructions * Discharge Instructions* Launn Cuellar MD - 06/08/2024 4:56 PM EST Medicine Discharge Instructions Thank you for coming to [facility] and allowing us to participate in your healthcare. It was both a pleasure and a privilege to be part of your team. See below for further information on follow-ups and ToDo's once you leave the hospital. Please see your Hospital Summary in your discharge packet for information about what happened during your hospitalization. Clinical reference(s) have been attached to your discharge packet. These reference(s) are to give you more information about what you were treated for during your hospitalization. Please return to the hospital if you notice any of the following: - fevers or shaking chills that are not responsive to iqzf-gfe-rcdycoe medication - chest pain, shortness of breath, or difficulties breathing that does not quickly resolve - passing out - bleeding that does not stop after 20 minutes of pressure - or any other symptoms that worry you as this may be indicative of a more serious underlying condition. As always, if you have any concerns, please reach out to your primary care provider, urgent care, or local emergency department for further treatment advice. Some of the medications you were taking before admission may have been changed as well as new medications added. Please see the first several pages of your discharge packet for a comprehensive list of your medications. If you need refills of these medications after discharge, please contact your PCP or specialist for refills. - Please continue to take all other medications prior to admission. Take all medications as prescribed and do not stop taking your medications without speaking to your doctor. - Please seek medical attention and call your PCP and/or specialist if you notice worsening symptoms or any symptoms you are concerned about. FOLLOW-UP APPOINTMENTS: Future Appointments Date Time Provider Department Center 06/20/2024 9:30 AM Herman Sutherland MD [facility] - PCP: Please call your PCP and arrange a follow-up within 1-2 weeks of discharge to discuss this hospitalization and any medication changes - Specialist: Please attend all your follow-up appointments after discharge (please bring your discharge paperwork to these visits). Finding a Primary Care Provider (PCP) If you need to find a new primary care provider, you can: 1) Call [phone] ( ) You will speak with an tip banding machine operator who will help you find a doctor accepting new patients in your area. 2) Contact the [address] [phone] 3) Contact [address] [address] 4) You can also find a PCP online through [email or web address] It was a pleasure participating in your care. We wish you good health in the future. * Attachments The following attachments cannot be sent through Care Everywhere. * Osteomyelitis Discharge Instructions (Namibian) * Osteomyelitis in Adults (Namibian) documented in this encounter Medications at Time of Discharge 0.9% NaCl 0.9% piggyback 100 mL with cefTRIAXone 2 gram recon soln 2 g Infuse 2 g intravenously every 24 hours for 24 days. 06/09/2024 apixaban (ELIQUIS) 2.5 mg tablet Take 5 mg by mouth every 12 hours. atorvastatin (LIPITOR) 40 mg tablet TAKE ONE TABLET (40 MG TOTAL) BY MOUTH 1 (ONE) TIME EACH DAY FOR CHOLESTEROL 07/18/2020 bisacodyL (DULCOLAX) 10 mg suppository Insert 1 suppository (10 mg total) into the rectum daily as needed for constipation. 06/08/2024 clonazePAM (KlonoPIN) 0.5 mg tablet Take 0.5 mg by mouth 3 times a day. 09/05/2020 dextroamphetamin e-amphetamine (ADDERALL) 30 mg tablet Take 1 tablet by mouth 2 times a day. 07/01/2020 docusate sodium (COLACE) 100 mg capsule Take 1 capsule (100 mg total) by mouth 2 times a day. 06/09/[address] (CYMBALTA) 60 mg capsule Take 120 mg by mouth daily. 07/31/2020 haloperidoL (HALDOL) 0.5 mg tablet Take 0.5 mg by mouth 2 times daily. 03/29/2024 lamoTRIgine (LaMICtal) 200 mg tablet Take 200 mg by mouth 2 times a day. 06/13/2020 polyethylene glycol 3350 (MIRALAX) 17 gram packet Take 1 packet (17 g total) by mouth once a day. Mix powder in 4 to 8 oz of water, juice, coffee, or tea prior to administration. 06/09/2024 senna (SENOKOT) 8.6 mg tablet Take 2 tablets (17.2 mg total) by mouth nightly. 06/08/2024 traZODone (DESYREL) 150 mg tablet Take 150 mg by mouth nightly. metroNIDAZOLE (FLAGYL) 500 mg tablet Take 1 tablet (500 mg total) by mouth every 12 hours for 25 days. 06/08/2024 oxyCODONE IR (ROXICODONE) 5 mg tablet Take 1 tablet (5 mg total) by mouth every 3 hours as needed for pain for up to 5 days. Max Daily Amount: 40 mg 06/08/2024 5 documented as of this encounter Progress Notes * Luann Cuellar MD - 06/08/2024 7:33 AM EST Images from the original note were not included. Daily Progress Note Impression: Pt is a 63 y/o F w PMH of MDD, memory loss, pelvic DVT/abscess, and recent PE currently on Eliquis,as well as PFH of multiple cancers (uterine, ovarian, breast, prostate), who was admitted for hematuria. Now resolved and back on Eliquis, course c/b proximal BLE weakness x3wks. Now on Hospital Day:8. 24 Hour Events: - Soft pressures, responded appropriately to fluids - NAEON SUBJECTIVE: Pt seen and evaluated at bedside this AM prior to rounds. Continues to have groin pain but is pleased w slow improvement in her walking. Feels like a toddler w furniture walking . Otherwise denies CP, shortness of breath, nausea, acute pain elsewhere. Does feel constipated, hasn't had a BM in at least 2 days. Is worried about where she will be going after DC as she need good sleep for her mentalhealth and is concerned rehab or home w family may not help w that in terms of stress. OBJECTIVE: Vital signs for last 24 hours: Temp: [36.8 ??C (98.2 ??F)-37.1 ??C (98.8 ??F)] 36.8 ??C (98.2 ??F) Heart Rate: [79-87] 79 Resp: [17-18] 18 BP: (94-102)/(54-63) 98/55 SpO2: [96 %-99 %] 98 % Intake/Output for last 24 hours: Intake/Output Summary (Last 24 hours) at 06/08/2024 1353 Last data filed at 06/08/2024 1300 Gross per 24 hour Intake 480 ml Output -- Net 480 ml Active Lines/Drains/Airway: . Active Lines Name Placement date Placement time Site Days PICC 06/07/24 Pressure injectable Right Brachial Single Lumen 06/07/24 1535 Right Brachial less than 1 Active Drains None Active Airways None Physical Exam: Gen: Awake and alert, NAD, [...] forward, using hands for stability on furniture Active Medications: Current Facility-Administered Medications Medication Dose Route Frequency Provider Last Rate Last Admin acetaminophen (TYLENOL) tablet 975 mg 975 mg oral q6h PRN Tim Rainey MD 975 mg at 06/08/24 1025 apixaban (ELIQUIS) tablet 5 mg 5 mg oral q12h REPLACED BY [facility] Juma Hernandez MD 5 mg at 06/08/24 09 atorvastatin (LIPITOR) tablet 40 mg 40 mg oral Daily Juma Hernandez MD 40 mg at 06/08/24 09 bisacodyL (DULCOLAX) suppository 10 mg 10 mg rectal Daily PRN Luann Cuellar MD cefTRIAXone (ROCEPHIN) 2 g in 0.9% NaCl 100 mL Mini-Bag Plus 2 g intravenous q24h REPLACED BY [facility] Tim Rainey MD 200 mL/hr at 06/08/24 0927 2 g at 06/08/24 09 clonazePAM (KlonoPIN) tablet 0.5 mg 0.5 mg oral 3x daily Juma Hernandez MD 0.5 mg at 06/08/24 1316 dextroamphetamine-amphetamine (ADDERALL) tablet 30 mg 30 mg oral 2x daily PRN Tim Rainey MD docusate sodium (COLACE) capsule 100 mg 100 mg oral 2x daily Juma Hernandez MD 100 mg at 06/08/[address] (CYMBALTA) capsule 120 mg 120 mg oral Daily Juma Hernandez MD 120 mg at 06/08/24 0518 iron sucrose (VENOFER) injection 100 mg 100 mg intravenous Daily Tim Rainey MD 100 mg at 06/08/24 1025 lamoTRIgine (LaMICtal) tablet 200 mg 200 mg oral 2x daily Juma Hernandez MD 200 mg at 06/08/24 0923 lidocaine PF (XYLOCAINE) 1% (10 mg/mL) injection 50 mg 5 mL subcutaneous Once PRN Dejah Sweeney MD 50 mg at 06/07/24 1530 metroNIDAZOLE (FLAGYL) tablet 500 mg 500 mg oral q12h REPLACED BY [facility] Eliazar Morgan MD 500 mg at 06/08/24 0923 naloxone (NARCAN) injection 0.4 mg 0.4 mg intravenous q2h PRN Juma Hernandez MD naloxone 0.04 mg injection 0.04 mg intravenous q3min PRN Juma Hernandez MD oxyCODONE IR (ROXICODONE) tablet 5 mg 5 mg oral q3h PRN Tim Rainey MD 5 mg at 06/08/24 1319 Or oxyCODONE IR (ROXICODONE) tablet 7.5 mg 7.5 mg oral q3h PRN Tim Rainey MD 7.5 mg at 06/07/242117 polyethylene glycol 3350 (MIRALAX) packet 17 g 17 g oral Daily Luann Cuellar MD 17 g at 06/08/24 09 senna (SENOKOT) tablet 17.2 mg 17.2 mg oral Nightly Juma Hernandez MD 17.2 mg at 06/07/242117 sodium chloride 0.9% flush 10-30 mL 10-30 mL intravenous See admin instructions Eliazar Morgan MD And sodium chloride 0.9% flush 10-30 mL 10-30 mL intravenous Daily Eliazar Morgan MD 20 mL at 930 sodium chloride 0.9% flush 2.5-10 mL 2.5-10 mL intravenous See admin instructions Juma Hernandez MD And sodium chloride 0.9% flush 2.5-10 mL 2.5-10 mL intravenous q12h SERAFIN Juma Hernandez MD 10 mL at 06/08/24 1319 traZODone (DESYREL) tablet 150 mg 150 mg oral Nightly Juma Hernandez MD 150 mg at 06/07/24 2118 Labs: CBC Results from last 7 days Lab Units 06/08/24 0549 06/07/24 0531 06/06/24 0713 06/04/24 2241 06/04/24 0957 06/04/24 0344 WBC 10*3/uL 8.0 7.1 10.0 < > 10.2 11.6* HEMOGLOBIN g/dL 8.4* 8.7* 9.4* < > 9.7* 10.3* HEMATOCRIT % 26.3* 27.6* 30.0* < > 30.7* 32.7* PLATELETS 10*3/uL 678* 749* 821* < > 813* 1,166* EOSINOPHILS ABS, MAN 10*3/uL -- -- -- -- 0.00* 0.00* < > = values in this interval not displayed. BMP Results from last 7 days Lab Units 06/08/24 0549 06/07/24 0531 06/06/24 0713 SODIUM mmol/L 142 140 136 POTASSIUM mmol/L 3.7 4.3 4.5 CHLORIDE mmol/L 103 102 98 CARBON DIOXIDE mmol/L 31 30 30 BUN mg/dL 9 9 10 CREATININE mg/dL 0.61 0.58 0.63 GLUCOSE mg/dL 118* 100* 109* CALCIUM mg/dL 8.5* 9.0 9.1 ANION GAP 8 8 8 EGFR mL/min/1.73m2 >90 >90 >90 Results from last 7 days Lab Units 06/05/24 1120 06/05/24 0749 GLUCOSE, POCT mg/dL 130* 111* LFT Results from last 7 days Lab Units 06/04/24 2237 06/04/24 0344 06/02/24 0813 TOTAL PROTEIN g/dL 7.1 8.2* 7.3 ALBUMIN g/dL 3.2* 3.7 3.3* TOTAL BILIRUBIN mg/dL 0.3 0.4 <0.2* DIRECT BILIRUBIN mg/dL -- 0.2 -- BILIRUBIN, INDIRECT mg/dL -- 0.20 -- AST U/L 19 22 19 ALT U/L 9* 12 12 ALKALINE PHOSPHATASE U/L 132* 163* 159* Trop/Coags A1c Latest Ref Rng & Units 08/02/2022 2:22 PM HgbA1c Hemoglobin A1C <5.7 % of total Hgb 6.0 This result is from an external source. Lipid panel No data to display Micro: Microbiology Results (last 21 days) Procedure Component Value - Date/Time Blood Culture, Peripheral #1 [[id number]] Collected: 06/02/241641 Lab Status: Final result Specimen: Blood from Venous, Peripheral Updated: 06/07/242051 Culture No growth after 5 days Narrative: [facility] Received Date: MICRO NUMBER: [id number] SPECIMEN QUALITY: Adequate SOURCE: BLOOD VENOUS, PERIPHERAL STATUS: FINAL COMMENT: Aerobic and anaerobic bottle received. Blood Culture, Peripheral #2 [[id number]] Collected: 06/02/241641 Lab Status: Final result Specimen: Blood from Venous, Peripheral Updated: 06/07/242051 Culture No growth after 5 days Narrative: [facility] Received Date: MICRO NUMBER: [id number] SPECIMEN QUALITY: Adequate SOURCE: BLOOD VENOUS, PERIPHERAL [...] possible to obtain the completedinterpretation. Workstation ID: [id number] MRI Brain with and without Contrast Result [...] possible to obtain thecompleted interpretation. Workstation ID: [id number] MRI ([facility]K) Pelvis W WO Contrast Result Date: 06/06/2024 IMPRESSION: 1. Confluent bone marrow edema centered at the pubic symphysis is concerning for acute osteomyelitis. Small amount of fluid at the pubic symphysis is likely septic. 2. Edema involving thepectineus and adductor muscles, in keeping with myositis with small intramuscular abscesses, the largest within the left adductor brevis muscle. A(n) [place] actionable finding has been communicated to the ordering or responsible provider via the [facility] system on 06/06/2024 9:29 AM. Receipt of this communication by the responsible provider will be documented in Getaround Findings upon receiving acknowledgement if applicable, Message ID [id number]. IEliazar,have reviewed the examination and concur with the findings as reported or so edited. Trainee: Rosa Maria Morales If this radiology report contains a blank impression section, it is an incomplete radiology report. Please contact the interpreting radiologist or applicable radiology division as soon as possible to obtain the completed interpretation. Workstation ID: [id number] CT Chest W Contrast Result Date: 06/05/2024 [...] the ordering or responsible provider via the [facility] system on06/05/2024 1:18 PM. Receipt of this communication by the responsible provider will be documented in Getaround Findings upon receiving acknowledgement if applicable, Message ID [id number]. If this radiology report contains a blank impression section, it is an incomplete radiology report. Please contact the interpreting radiologist or applicable radiology division as soon as possible to obtain the completed interpretation. Workstation ID: [id number] Up-to-date CT equipment and radiation dose reduction techniques were employed. CTDIvol: 5.2 mGy. DLP: 154 mGy-cm. CT Abd Pelvis W Contrast Addendum Date: 06/01/2024 Addendum: COMMUNICATION: The findings were communicated via [employer] secure chat acknowledged by Dr. Khan at 5:35 PM on 06/01/2024. If this radiology report contains a blank impression section, it isan incomplete radiology report. Please contact the interpreting radiologist or applicable radiologydivision as soon as possible to obtain the completed interpretation. Workstation ID: [id number] Result Date: 06/04/2024 1. Segmental pulmonary embolism [...] the ordering or responsible provider via the [employer] Findings system on 06/01/2024 5:05 PM. Receipt of this communication by the responsible provider will be documented in Getaround Findings upon receiving acknowledgement if applicable, Message ID [id number]. If this radiology report contains a blank impression section, it is an incomplete radiology report. Please contact the interpreting radiologist or applicable radiology division as soon as possible to obtain the completed interpretation. Workstation ID: [id number] MRI Cervical Spine W WO Contrast MRI [...] or postcontrast enhancement through the spinal cord. IHollis, have reviewed the examination and concur withthe findings as reported or so edited. Trainee: Salome Pineda If this radiology report containsa blank impression section, it is an incomplete radiology report. Please contact the interpreting radiologist or applicable radiology division as soon as possible to obtain the completed interpretation. Workstation ID: [id number] MRI Lumbar Spine W WO Contrast Result [...] to obtain the completed interpretation. Workstation ID: [id number] Prior Echo Procedures Transthoracic Echo (TTE) Bubble Study Exam End: 06/05/2024 9:39 AM (Final result) Narrative: Normal biventricular size and global systolic function. Estimated LVEF is 70%. No regional wall motion abnormalities. Normal atrial size. No significant valvular disease identified. No interatrial shunt detected by color flow Doppler. No interatrial septal aneurysm. Unable to perform bubble study. ASSESSMENT/PLAN: * Gait instability Assessment & Plan Patient is [...] the last 1 year. MRI spine demonstrating m ultilevel multifactorial degenerative changes most pronounced at C5-C6 and C6-C7 levels where thereis up to moderate to severe left neural foraminal narrowing and mild spinal canal stenosis, howeverthere is no significant neural foraminal or spinal canal stenosis at the thoracic levels and there is no abnormal signal or postcontrast enhancement through the spinal cord. The degenerative changes s een on imaging are not felt to be consistent with the patient's clinical symptoms. Neurology consulted, feeling that lower extremity weakness on exam is more likely secondary to suprapubic pain, and with encouragement weakness was slightly better prior to previous exams. They do agree with plan forMRI pelvis and MRI brain although have low suspicion for new septic emboli. Patient had TTE with bubble study not demonstrating any vegetation. MRI brain with with and without contrast was performed without any acute intracranial abnormality. Patient's folate and B12 levels within normal limits. 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 W/up: MRI pelvis: several intramuscular abscesses and concern for osteo around pubic symphysis Myositis panel: pending Serum paraneoplastic panel: pending Autoimmune w/up: AMADOU: negative RF: <10 negative SM (raymond): <1.0 negative Anti-dsDNA: negative ROLLER STAKER: negative C3: elevated C4: negative ESR, CRP: elevated Metabolic testing: Aldolase: 4.7 nl VitD: 17 low LDH: 147 - F/up w/up as above - PT consulted, rec'd inpt facility Left leg weakness Assessment & Plan See gait instability and patient summary Pelvic abscess in female Assessment & Plan [...] q3h PRN for moderate-severe pain - Senna serafin nightly - Miralax serafin daily - Bisacodyl suppository PRN ID [id number] [...] [facility] fellow/DEBBIE: [place] [id number] Please follow-up at the ID clinic: Dr. Sutherland 06/20 @ 9:30 AM [facility] ESTRADA, [facility], [address] [place] [address] Thrombocytosis Assessment & Plan Patient was significant [...] WNL. -Hematology consulted -NGS MPN panel, pending Hematuria Assessment & Plan Recently diagnosed with [...] continue the Eliquis - Continue close monitoring. Anxiety Assessment & Plan -Continue home clonazepam [...] checks. HIV Ab negative. -Infectious disease consulted Anemia Assessment & Plan Patient with slight but stable anemia, Hgb around 10. Iron studies significant for ferritin of 451,iron concentration 26, iron binding capacity 240, transferrin 192, percent saturation of 11%. Iron studies suggestive of mixed chronic inflammatory and iron deficiency anemia. -Hematology consulted -Venofer IV 5 days, until 06/09 Streptococcal bacteremia Assessment & Plan Osteomyelitis of pelvis (CMS/HCC) ([facility]) Assessment & Plan GLOBAL PLAN OF CARE FLUIDS AND NUTRITION FLUIDS: NUTRITION: Diet, Adult Full participation; Regular QUALITY Central Venous Catheter: keep central line in for IV abx VTE PROPHYLAXIS Apixaban Pharmacologic VTE Prophylaxis contraindicated/not needed ADVANCED CARE PLANNING Code Status: Full Code Medical Decision Maker: GLOBALS: DVT ppx: Eliquis Diet: regular diet, ensure supplements Drains: PICC placed 06/07 for IV abx Dispo: pending placement PT: 06/07 inpt facility OT: N/A Patient seen and discussed with Dr. Eliazar Morgan, supervising medicine attending, who agrees with the above assessment and plan except as attested below. Signature: Luann Cuellar MD PGY-1 Electronic Signature Cosigned by Eliazar Morgan MD at 06/08/2024 2:42 PM EST Associated attestation - Eliazar Morgan MD - 06/08/2024 2:42 PM EST I saw and evaluated the patient. Case discussed with the resident/fellow and I agree with the findings and plan as documented in the resident's/fellow's note. Patient seen this morning. Again outlined her treatment plan for her. Advised her that based on reviewing her imaging and discussing her case with orthopedics and ID it does not sound like there is any urgent need for any surgical intervention or sampling of this pelvic fluid. It likely would be low yield. Discussed that we feel that putting her through an invasive procedure would have a low benefit therefore recommend deferring further any further intervention. Awaiting placement decision. Patient seen with her father at bedside. When I did mention rehab she said that her was hopeful that she could come home and use the bathroom near her house. I outlined my concerns that physical therapy is recommending inpatient rehab and that she is at increased risk for a fall which couldlead to worsening of her condition including fracture. I also outlined that while at home is ideal for many patients it may not be safe for her to do so as she would need to demonstrate her ability to safely evacuate if there were an emergency in the home. I am not convinced that she would be able to do that at this time. Ultimately I did say that it would be her decision on where she goes however it is our recommendation that she go to rehab and if she chose to not follow this recommendation I would ask her to sign adocument acknowledging the risk of refusing discharge to rehab against our medical advice. I spent a total of 52 minutes on the date of encounter, which [...] Documenting clinical information in the health record * Hermna Sutherland MD - 06/07/2024 9:00 AM EST Images from the original note were not included. Infectious Diseases Progress Note Date of admission: 06/01/2024 11:18 AM Reason for consult: Groin abscess Subjective: Feels Better. Mentions that pain is better controlled. Interval events: - MRI Pelvis: Confluent bone marrow edema centered at the pubic symphysis is concerning for acute osteomyelitis. Small amount of fluid at the pubic symphysis is likely septic. Edema involving the pectineus and adductor muscles, in keeping with myositis with small intramuscular abscesses, the largest within the left adductor brevis muscle HIV negative on 06/06 Review of systems: All other components of the review of systems are negative, except those described in the history of present illness. Medications: apixaban, 5 mg, oral, q12h SERAFIN atorvastatin, 40 mg, oral, Daily cefTRIAXone, 1 g, intravenous, q24h SERAFIN clonazePAM, 0.5 mg, oral, 3x daily docusate sodium, 100 mg, oral, 2x daily DULoxetine DR, 120 mg, oral, Daily iron [...] q12h SERAFIN traZODone, 150 mg, oral, Nightly Physical Exam: Temp: [36.6 ??C (97.9 ??F)] 36.6 ??C (97.9 ??F) Heart Rate: [87] 87 BP: (93-123)/(56-72) 104/65 SpO2: [98 %] 98 % General appearance: no obvious distress, well nourished Abdomen: non-distended MSK: no obvious abnormality, no major joint effusion Extremities: no edema or swelling Skin: no obvious rashes or abnormal lesions Neuro: alert and oriented, no focal deficits Laboratory data: I have independently reviewed all recent lab results; including all microbiological data and culture results from previous years. Results from last 7 days Lab Units 06/07/24 0531 06/06/24 0713 06/05/24 0349 06/04/24 2241 06/04/24 2237 06/04/24 0957 06/04/24 0344 06/03/24 1101 06/02/24 0813 WBC 10*3/uL 7.1 10.0 9.5 < > -- < > 11.6* < > 11.9* HEMOGLOBIN g/dL 8.7* 9.4* 9.2* < > -- < > 10.3* < > 9.8* HEMATOCRIT % 27.6* 30.0* 28.8* < > -- < > 32.7* < > 31.3* PLATELETS 10*3/uL 749* 821* 830* < > -- < > 1,166* < > 739* SODIUM mmol/L 140 136 137 -- 136 -- 138 < > 139 CARBON DIOXIDE mmol/L 30 30 27 -- 28 -- 26 < > 26 BUN mg/dL 9 10 7 -- 8 -- 10 < > 10 CREATININE mg/dL 0.58 0.63 0.62 -- 0.64 -- 0.71 < > 0.77 TOTAL BILIRUBIN mg/dL -- -- -- -- 0.3 -- 0.4 -- <0.2* ALKALINE PHOSPHATASE U/L -- -- -- -- 132* -- 163* -- 159* ALT U/L -- -- -- -- 9* -- 12 -- 12 AST U/L -- -- -- -- 19 -- 22 -- 19 GLUCOSE mg/dL 100* 109* 122* -- 115* -- 186* < > 114* < > = values in this interval not displayed. Microbiology data: No results found for: CDIFFTOXAB Blood Cultures Lab Results Component Value Date BCRESULT No growth to date 06/02/2024 BCRESULT No growth to date 06/02/2024 Radiology: I have reviewed all imaging data available during this hospitalization independently. Impression: Dorothy Vázquez is a 63 y.o. female with history of major depressive disorder, memory loss, recent hospitalization at [facility] for strep intermedius associated pelvic abscess s/p drainage and 05/29 and a new lead diagnosed DVT with pulmonary embolism for which she was started on anticoagulation. She was admitted at [facility] because of hematuria stop she has remained hemodynamically stable and afebrile throughout her hospitalization with blood cultures on 06/02 remaining negative. She underwent an MRI of the Pelvis which revealed confluent bone marrow edema centered at the pubicsymphysis is concerning for acute osteomyelitis. Small amount of fluid at the pubic symphysis is likely septic.Edema involving the pectineus and adductor muscles, in keeping with myositis with small i ntramuscular abscesses, the largest within the left adductor brevis muscle. Given the recent positive blood cultures for strep intermedius, we don't think a biopsy is indicated. This would however change the duration of therapy. We can start the clock from 05/22 - date of first negative blood cultures and will treat her for atleast 6 weeks. Can consider repeating a CT scan towards the end of the end of therapy depending on clinical condition The pulmonary nodular lesions in the left lower lobe are likely secondary to evolving pulmonary infarcts. # Acute osteomyelitis of the pubic symphasis # Strep intermedius bacteremia --gluteal abscess s/p drainage at [facility] on 05/[address] scan on 06/01 showing residual collection; MAXIMO negative for any vegetations at [facility] # DVT with pulmonary embolism with a cluster of nodular pulmonary lesions in the left lower zone likely secondary to evolving pulmonary infarcts # Pelvic Abscess/ Acute osteomyelitis/ myositis Recommendations: Continue Ceftriaxone and Flagyl for now Increase ceftriaxone to 2gm once daily Decrease Flagyl to 500mg twice daily. Anticipate a 6 week course of antimicrobial therapy [facility] Infectious Disease Discharge Recommendations: If patient is going to rehab or will have VNA services, please document in the d/c summary ID's discharge recommendations and clinic appointment. Indication for IV/PO antibiotics: Pelvis Abscess Continue [...] [facility] fellow/DEBBIE: [place] [id number] ID Clinic Appointment Please follow-up at the ID Clinic: Dr Sutherland 06/20 @ 9:30 AM [facility], [address] The plan of care was discussed with the primary hospital team. Infectious Diseases team will continue to follow. Please don't hesitate to call us with questions or any acute changes in patient's clinical condition. Herman Sutherland MD Fellow Infectious Diseases Dorothy Vázquez : 1960 CSN: [id number] Cosigned by Mitchell Elena IV, MD at 06/07/2024 8:09 PM EST Associated attestation - Mitchell Elena IV, MD - 06/07/2024 8:09 PM EST Patient seen in about a fellow, history and exam confirmed independently on day of service. She is doing relatively well, continues to have pain in her pelvis but this is stable. Will plan for several weeks of antibiotics given confirmation of pubic symphysis osteomyelitis. Source remains confusing, likely suspect GI given process but no obvious answers. Will continue to follow in outpatient setting. Course as per Dr. Koko Elena IV, MD MS Div. 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 female who was admitted on 06/01/2024 (Hospital Day: 7) due to Left leg weakness. SUBJECTIVE CHIEF COMPLAINT: Hematuria and Lower extremity weakness No acute events overnight. Patient has systolic blood pressures still in the 90s. Requesting pain medication, but fell asleep before receiving as needed oxycodone. Patient seen l bedside this morningand appeared comfortable. She was anxious about all of the imaging and lab tests could have been taken.overall hospital course and plan reviewed with with her, and patient felt reassured. She remainsasymptomatic without lightheadedness or dizziness. Blood pressure remains soft, but patient states that she has been told that her blood pressure has been low her whole life. 24 HOUR EVENTS: -MRI Brain, no acute intracranial findings -MRI Pelvis, concerning for multiple small intramuscular abscesses and osteo -PT evaluation, recommending inpatient rehab -Infectious disease consult, recommending continuation of ABX until 06/23 -Ortho consulted Vitals: -Hemodynamically stable, normotensive -Afebrile Ins: 1200 PO Outs: Not recorded BM: Last BM 06/05/2024 Micro: -Blood Cultures, NGTD Labs: White blood cell count 7.1 (10) Hemoglobin 8.7 Platelet count 749 Sodium 140 Potassium 4.3 Glucose 100 BUN 9 Creatinine 0.58 Calcium 9 Magnesium 2.1 HIV nonreactive Von Willebrand 111% ROLLER STAKER antibody, negative DNA antibody double-stranded, negative REVIEW OF SYSTEM As her above OBJECTIVE VITAL SIGNS FOR PAST 24 Hours : Reviewed MEDICATIONS: Current hospital medications reviewed. PHYSICAL EXAM: General: Awake, alert, oriented, not in acute distress Head: Normocephalic Eyes: PERRLA, EOMI, ENT: Mucous membrane moist, Neck: Supple Respiratory: respiratory effort normal, no distress, clear to auscultation bilaterally no rhonchi, no rales, no wheezing. Cardiovascular: Regular rhythm, S1, S2, normal, no murmur, rubs, gallops Abdomen: Soft, lower abdominal and pelvic tenderness. Genitourinary: No CVA tenderness Skin: No acute significant skin lesion Extremities: non tender,no edema Psychiatric: mood normal Neurologic: Awake, alert, oriented x3, speech normal. LAB: Recent Results (from the past 24 hours) CBC Auto Differential Collection Time: 06/07/24 [...] Range MG 2.1 1.6 - 2.4 mg/dL IMAGING/OTHER STUDIES: MRI Brain with and without Contrast Result [...] possible to obtain thecompleted interpretation. Workstation ID: [id number] (MSK) Pelvis W WO Contrast Result Date: 06/06/2024 IMPRESSION: 1. Confluent bone marrow edema centered at the pubic symphysis is concerning for acute osteomyelitis. Small amount of fluid at the pubic symphysis is likely septic. 2. Edema involving thepectineus and adductor muscles, in keeping with myositis with small intramuscular abscesses, the largest within the left adductor brevis muscle. A(n) [place] actionable finding has been communicated to the ordering or responsible provider via the Get[employer] Findings system on 06/06/2024 9:29 AM. Receipt of this communication by the responsible provider will be documented in Getaround Findings upon receiving acknowledgement if applicable, Message ID [id number]. I, Eliazar Nieves,have reviewed the examination and concur with the findings as reported or so edited. Trainee: Rosa Maria Morales If this radiology report contains a blank impression section, it is an incomplete radiology report. Please contact the interpreting radiologist or applicable radiology division as soon as possible to obtain the completed interpretation. Workstation ID: [id number] CT Chest W Contrast Result Date: 06/05/2024 [...] the ordering or responsible provider via the [facility] system on06/05/2024 1:18 PM. Receipt of this communication by the responsible provider will be documented in Getaround Findings upon receiving acknowledgement if applicable, Message ID [id number]. If this radiology report contains a blank impression section, it is an incomplete radiology report. Please contact the interpreting radiologist or applicable radiology division as soon as possible to obtain the completed interpretation. Workstation ID: [id number] Up-to-date CT equipment and radiation dose reduction techniques were employed. CTDIvol: 5.2 mGy. DLP: 154 mGy-cm. Most recent and pertinent Imaging result reports reviewed. HOSPITAL PROBLEMS: Principal Problem: Left leg weakness Active Problems: Hematuria Pelvic abscess in female Gait instability Thrombocytosis Anemia Pulmonary nodules Hyperlipidemia Anxiety Assessment & Plan Gait instability Patient is mainly brought to the hospital [...] the last 1 year. MRI spine demonstrating m ultilevel multifactorial degenerative changes most pronounced at C5-C6 and C6-C7 levels where thereis up to moderate to severe left neural foraminal narrowing and mild spinal canal stenosis, howeverthere is no significant neural foraminal or spinal canal stenosis at the thoracic levels and there is no abnormal signal or postcontrast enhancement through the spinal cord. The degenerative changes s een on imaging are not felt to be consistent with the patient's clinical symptoms. Neurology consulted, feeling that lower extremity weakness on exam is more likely secondary to suprapubic pain, and with encouragement weakness was slightly better prior to previous exams. They do agree with plan forMRI pelvis and MRI brain although have low suspicion for new septic emboli. Patient had TTE with bubble study not demonstrating any vegetation. MRI brain with with and without contrast was performed without any acute intracranial abnormality. Patient's folate and B12 levels within normal limits. 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 - MRI pelvis, several intramuscular abscesses and concern for osteo around pubic symphysis - Myositis panel, pending - Serum paraneoplastic panel, pending - Further labs for autoimmune workup including: AMADOU, RF, raymond (SM), pending - Anti-dsDNA, negative - ROLLER STAKER, negative - C3, elevated - C4, negative - ESR, CRP, elevated - Further metabolic testing: aldolase, Vitamin D, Ca, LDH, pending Left leg weakness See gait instability and patient summary Pelvic abscess in female Recently been diagnosed with pelvic abscess, 4 [...] severe pain every 3 hours -Ortho consulted Pulmonary nodules CT chest performed and significant for biapical [...] checks. -Infectious disease consulted -HIV antibodies, negative Hematuria Recently diagnosed with PE due to pulmonary [...] continue the Eliquis - Continue close monitoring. Thrombocytosis Patient was significant acute thrombocytosis on labs, [...] antigen and factor 8 ristocetin cofactor, WNL Anemia Patient with slight but stable anemia, Hgb around 10. Iron studies significant for ferritin of 451,iron concentration 26, iron binding capacity 240, transferrin 192, percent saturation of 11%. Iron studies suggestive of mixed chronic inflammatory and iron deficiency anemia. -Hematology consulted -Venofer IV 5 days, until 06/09 Hyperlipidemia -Continue home atorvastatin 40 mg daily Anxiety -Continue home clonazepam 0.5 mg 3 times daily -Continue home lamotrigine 200 mg twice daily -Continue home duloxetine 120 mg daily -Continue home Adderall 30 mg twice daily as needed GLOBAL PLAN OF CARE FLUIDS AND NUTRITION FLUIDS: NUTRITION: Diet, Adult Full participation; Regular QUALITY Central Venous Catheter: keep central line in for IV antibiotics. VTE PROPHYLAXIS Apixaban ADVANCED CARE PLANNING Code Status: Full Code Medical Decision Maker: Patient Signature: Tim Rainey MD Electronic Signature Cosigned by Eliazar Morgan MD at 06/08/2024 2:40 PM EST Associated attestation - Eliazar Morgan MD - 06/08/2024 2:40 PM EST I saw and evaluated the patient. Case discussed with the resident/fellow and I agree with the findings and plan as documented in the resident's/fellow's note. Patient seen and examined on 06/07. Continues to show improvement. Beginning to organize a disposition plan for the patient. I spent a total of 42 minutes on the date of encounter, which [...] reported) and communicating results to the patient/family/caregiver * Tim Rainey MD - 06/06/2024 7:39 AM EST DAILY PROGRESS NOTE INTERNAL MEDICINE 06/06/2024 Dorothy Vázquez is a 63 y.o. female who was admitted on 06/01/2024 (Hospital Day: 6) due to Left leg weakness. SUBJECTIVE CHIEF COMPLAINT: Hematuria and Lower extremity weakness No acute events overnight. Patient able to get MRIs this morning without difficulty. She was reported to have been anxious and received 0.25 mg Ativan once. She also received 0.8 mg Dilaudid IV for premedication continued for adequate pain control and MRI machine. Patient seen bedside and later in the day, and appeared tired. Woke up but quickly fell back asleep. Minimal p.o. intake and morning, found to have soft blood pressures afternoon, given 500 cc bolus of fluid. Patient remaining asymptomatic without lightheadedness or dizziness. 24 HOUR EVENTS: -MRI Brain, no acute intracranial findings -MRI Pelvis, concerning for multiple small intramuscular abscesses and osteo -PT evaluation, recommending inpatient rehab -Infectious disease consult, recommending continuation of ABX Vitals: -Hemodynamically stable, normotensive -Afebrile BM: Last BM 06/05/2024 Micro: -Blood Cultures, NGTD Labs: WBC pending BMP pending Ig panel within normal limits Complement C4 within normal limits Albumin C3 elevated at 248 REVIEW OF SYSTEM As her above OBJECTIVE VITAL SIGNS FOR PAST 24 Hours : Reviewed MEDICATIONS: Current hospital medications reviewed. PHYSICAL EXAM: General: Awake, alert, oriented, not in acute distress Head: Normocephalic Eyes: PERRLA, EOMI, ENT: Mucous membrane moist, Neck: Supple Respiratory: respiratory effort normal, no distress, clear to auscultation bilaterally no rhonchi, no rales, no wheezing. Cardiovascular: Regular rhythm, S1, S2, normal, no murmur, rubs, gallops Abdomen: Soft, lower abdominal and pelvic tenderness. Genitourinary: No CVA tenderness Skin: No acute significant skin lesion Extremities: non tender,no edema Psychiatric: mood normal Neurologic: Awake, alert, oriented x3, speech normal. LAB: Recent Results (from the past 24 hours) POCT Glucose, interfaced Collection Time: 06/05/24 7:49 AM Result Value Ref Range Glucose, POCT 111 (H) 70 - 99 mg/dL POCT Glucose, interfaced Collection Time: 06/05/24 11:20 AM Result Value Ref Range Glucose, POCT 130 (H) 70 - 99 mg/dL IMAGING/OTHER STUDIES: CT Chest W Contrast Result Date: 06/05/2024 [...] the ordering or responsible provider via the [employer] system on06/05/2024 1:18 PM. Receipt of this communication by the responsible provider will be documented in [employer] [facility] upon receiving acknowledgement if applicable, Message ID [id number]. If this radiology report contains a blank impression section, it is an incomplete radiology report. Please contact the interpreting radiologist or applicable radiology division as soon as possible to obtain the completed interpretation. Workstation ID: [id number] Up-to-date CT equipment and radiation dose reduction techniques were employed. CTDIvol: 5.2 mGy. DLP: 154 mGy-cm. Most recent and pertinent Imaging result reports reviewed. HOSPITAL PROBLEMS: Principal Problem: Left leg weakness Active Problems: Hematuria Pelvic abscess in female Gait instability Thrombocytosis Anemia Pulmonary nodules Hyperlipidemia Anxiety Assessment & Plan Gait instability Patient is mainly brought to the hospital [...] the last 1 year. MRI spine demonstrating m ultilevel multifactorial degenerative changes most pronounced at C5-C6 and C6-C7 levels where thereis up to moderate to severe left neural foraminal narrowing and mild spinal canal stenosis, howeverthere is no significant neural foraminal or spinal canal stenosis at the thoracic levels and there is no abnormal signal or postcontrast enhancement through the spinal cord. The degenerative changes s een on imaging are not felt to be consistent with the patient's clinical symptoms. Neurology consulted, feeling that lower extremity weakness on exam is more likely secondary to suprapubic pain, and with encouragement weakness was slightly better prior to previous exams. They do agree with plan forMRI pelvis and MRI brain although have low suspicion for new septic emboli. Patient had TTE with bubble study not demonstrating any vegetation. MRI brain with with and without contrast was performed without any acute intracranial abnormality. Patient's folate and B12 levels within normal limits. 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 - MRI pelvis, several intramuscular abscesses and concern for osteo around pubic symphysis - Myositis panel, pending - Serum paraneoplastic panel, pending - Further labs for autoimmune workup including: AMADOU, RF, anti-dsDNA, raymond (SM), ROLLER STAKER, C3, C4, ESR, CRP, pending - Further metabolic testing: aldolase, Vitamin D, Ca, LDH, pending Left leg weakness See gait instability and patient summary Pelvic abscess in female Recently been diagnosed with pelvic abscess, 4 [...] moderate - severe pain every [address] chest performed and significant for biapical [...] checks. -Infectious disease consulted -HIV antibodies, pending Hematuria Recently diagnosed with PE due to pulmonary [...] continue the Eliquis - Continue close monitoring. Thrombocytosis Patient was significant acute thrombocytosis on labs, [...] -Consider further infectious workup (e.g. HIV) Anemia Patient with slight but stable anemia, Hgb around 10. Iron studies significant for ferritin of 451,iron concentration 26, iron binding capacity 240, transferrin 192, percent saturation of 11%. Iron studies suggestive of mixed chronic inflammatory and iron deficiency anemia. -Hematology consulted -Venofer IV 5 days Hyperlipidemia -Continue home atorvastatin 40 mg daily Anxiety -Continue home clonazepam 0.5 mg 3 times daily -Continue home lamotrigine 200 mg twice daily -Continue home duloxetine 120 mg daily -Continue home Adderall 30 mg twice daily as needed GLOBAL PLAN OF CARE FLUIDS AND NUTRITION FLUIDS: NUTRITION: Diet, Adult Full participation; Regular QUALITY Central Venous Catheter: keep central line in for IV antibiotics. VTE PROPHYLAXIS Apixaban ADVANCED CARE PLANNING Code Status: Full Code Medical Decision Maker: Patient Signature: Tim Rainey MD Electronic Signature Cosigned by Eliazar Morgan MD at 06/06/2024 2:49 PM EST Associated attestation - Eliazar Morgan MD - 06/06/2024 2:49 PM EST I saw and evaluated the patient. Case discussed with the resident/fellow and I agree with the findings and plan as documented in the resident's/fellow's note. I spent a total of 51 minutes on the date of encounter, which [...] Documenting clinical information in the health record * Tim Rainey MD - 06/05/2024 7:35 AM EST DAILY PROGRESS NOTE INTERNAL MEDICINE 06/05/2024 Dorothy Vázquez is a 63 y.o. female who was admitted on 06/01/2024 (Hospital Day: 5) due to Left leg weakness. SUBJECTIVE CHIEF COMPLAINT: Hematuria and Lower extremity weakness Overnight patient's blood pressure noted to be 78/53. Patient was asymptomatic. Given 500 cc bolus with improved blood pressure. Remaining normotensive throughout the remainder of the night. Patient's hypotension thought to be secondary to oversedation with pain medication. This morning patient was scheduled to have MRI brain and pelvis performed, however imaging was delayed, patient became anxious that her pain medication was going to wear off, and subsequently requested to be transferred backto the [facility]. Patient was seen bedside later this morning and appears to be comfortable, she continues to endorse general weakness and pain when moving her lower extremities. She also reports thatlast night she experienced night sweats and she soaked her sheets. She denies new onset lightheadedness, dizziness, vision changes, confusion, chest pain, or shortness of breath. 24 HOUR EVENTS: -BP 78/53, asymptomatic -CBC, CMP, lactic acid within normal limits -BP responded to 500 cc bolus -And ketamine 20 mg oxycodone plus Klonopin at 8 PM -MRI canceled due to anxiety Vitals: -Hemodynamically stable -Afebrile BM: Last BM 06/05/2024 Micro: -Blood Cultures, NGTD Labs: White blood cell 9.5 Hemoglobin 9.2 Platelet count 830 (803) Overnight patient noted to have blood pressures with SBP's in the Sodium 137 Potassium 3.7 Chloride 99 Anion gap 11 Glucose 122 Calcium 9.0 Mag 1.8 Folate 15 B12 vitamin 1249 REVIEW OF SYSTEM As her above OBJECTIVE VITAL SIGNS FOR PAST 24 Hours : Reviewed MEDICATIONS: Current hospital medications reviewed. PHYSICAL EXAM: General: Awake, alert, oriented, not in acute distress Head: Normocephalic Eyes: PERRLA, EOMI, ENT: Mucous membrane moist, Neck: Supple Respiratory: respiratory effort normal, no distress, clear to auscultation bilaterally no rhonchi, no rales, no wheezing. Cardiovascular: Regular rhythm, S1, S2, normal, no murmur, rubs, gallops Abdomen: Soft, lower abdominal and pelvic tenderness. Genitourinary: No CVA tenderness Skin: No acute significant skin lesion Extremities: non tender,no edema Psychiatric: mood normal Neurologic: Awake, alert, oriented x3, speech normal. LAB: Recent Results (from the past 24 hours) CBC Auto Differential Collection Time: 06/04/24 9:57 AM Specimen: Venous, Peripheral; Blood Result Value Ref Range WBC 10.2 3.8 - 10.8 10*3/uL RBC 3.48 (L) 3.80 - 5.10 10*6/uL Hemoglobin 9.7 (L) 11.7 - 15.5 g/dL Hematocrit 30.7 (L) 35.0 - 45.0 % MCV 88.2 80.0 - 100.0 fL MCH 27.9 27.0 - 33.0 pg MCHC 31.6 (L) 32.0 - 36.0 g/dL RDW 14.1 11.0 - 15.0 % Platelets 813 (H) 140 - 400 10*3/uL MPV 8.6 7.5 - 12.5 fL nRBC % 0.0 /100 WBCs nRBC # <0.01 <0.01 10*3/uL Manual Differential Collection Time: 06/04/24 9:57 AM Specimen: Venous, Peripheral; Blood Result Value Ref Range Neutrophil %, Manual 67 % Band % 1 0 - 7 % Lymphocyte %, Manual 18 % Monocyte %, Manual 9 % Eosinophil %, Manual 0 % Basophil %, Manual 1 % Reactive Lymphocyte % 4 0 - 6 % Total Neutrophil #, Manual 6.94 1.50 - 7.80 10*3/uL Bands #,Manual 0.10 10*3/uL Total Lymph #, Manual 2.24 0.85 - 3.90 10*3/uL Monocyte #, Manual 0.92 0.20 - 0.95 10*3/uL Eosinophil #, Manual 0.00 (L) 0.02 - 0.50 10*3/uL Basophil #, Manual 0.10 0.00 - 0.20 10*3/uL Reactive Lymphocytes # 0.41 10*3/uL Platelet Estimate Increased (A) Adequate RBC Morphology Normal Normal, No clinically significant RBC morphology present ([facility], 2015). Total Cells Counted 114 Comprehensive metabolic panel Collection Time: 06/04/24 10:37 PM Specimen: Venous, Peripheral; Blood Result Value Ref Range NA 136 135 - 145 mmol/L K 4.0 3.5 - 5.3 mmol/L Cl 98 98 - 107 mmol/L CO2 28 22 - 32 mmol/L Anion Gap 10 5 - 15 Glucose 115 (H) 65 - 99 mg/dL Creatinine 0.64 0.50 - 1.20 mg/dL Calcium 9.1 8.6 - 10.5 mg/dL Total Protein 7.1 6.0 - 8.0 g/dL Albumin 3.2 (L) 3.5 - 5.2 g/dL Bilirubin, Total 0.3 0.2 - 1.2 mg/dL Alkaline Phosphatase 132 (H) 35 - 129 U/L AST 19 10 - 40 U/L ALT 9 (L) 10 - 40 U/L BUN 8 7 - 23 mg/dL eGFR >90 >=60 mL/min/1.73m2 Globulin, Total 3.9 2.1 - 4.2 g/dL A/G Ratio 0.8 (L) 1.5 - 3.0 Type and screen Collection Time: 06/04/24 10:37 PM Result Value Ref Range ABO Blood Type O RH Type Positive Expiration Date/Time 2024-06-07 23:59 Antibody Screen Negative CBC Auto Differential Collection Time: 06/04/24 10:41 PM Specimen: Venous, Peripheral; Blood Result Value Ref Range WBC 10.7 3.8 - 10.8 10*3/uL RBC 3.19 (L) 3.80 - 5.10 10*6/uL Hemoglobin 9.1 (L) 11.7 - 15.5 g/dL Hematocrit 27.7 (L) 35.0 - 45.0 % MCV 86.8 80.0 - 100.0 fL MCH 28.5 27.0 - 33.0 pg MCHC 32.9 32.0 - 36.0 g/dL RDW 13.7 11.0 - 15.0 % Platelets 803 (H) 140 - 400 10*3/uL MPV 8.6 7.5 - 12.5 fL Neutrophil % 64.4 % Immature Grans % 0.5 0.0 - 0.9 % Lymphocyte % 21.3 % Monocyte % 11.4 % Eosinophil % 1.6 % Basophil % 0.8 % Neutrophil # 6.86 1.50 - 7.80 10*3/uL Immature Grans # 0.05 (H) <=0.03 10*3/uL Lymphocyte # 2.30 0.85 - 3.90 10*3/uL Monocyte # 1.20 (H) 0.20 - 0.95 10*3/uL Eosinophil # 0.20 0.02 - 0.50 10*3/uL Basophil # 0.10 0.00 - 0.20 10*3/uL nRBC % 0.0 /100 WBCs nRBC # <0.01 <0.01 10*3/uL Lactic Acid, Plasma Collection Time: 06/04/24 10:41 PM Specimen: Venous, Peripheral; Blood Result Value Ref Range Lactic Acid 1.1 0.5 - 1.9 mmol/L CBC Auto Differential Collection Time: 06/05/24 3:49 AM Specimen: Venous, Central Line; Blood Result Value Ref Range WBC 9.5 3.8 - 10.8 10*3/uL RBC 3.30 (L) 3.80 - 5.10 10*6/uL Hemoglobin 9.2 (L) 11.7 - 15.5 g/dL Hematocrit 28.8 (L) 35.0 - 45.0 % MCV 87.3 80.0 - 100.0 fL MCH 27.9 27.0 - 33.0 pg MCHC 31.9 (L) 32.0 - 36.0 g/dL RDW 13.8 11.0 - 15.0 % Platelets 830 (H) 140 - 400 10*3/uL MPV 8.6 7.5 - 12.5 fL Neutrophil % 52.7 % Immature Grans % 0.3 0.0 - 0.9 % Lymphocyte % 32.3 % Monocyte % 12.2 % Eosinophil % 1.8 % Basophil % 0.7 % Neutrophil # 4.98 1.50 - 7.80 10*3/uL Immature Grans # 0.03 <=0.03 10*3/uL Lymphocyte # 3.10 0.85 - 3.90 10*3/uL Monocyte # 1.20 (H) 0.20 - 0.95 10*3/uL Eosinophil # 0.20 0.02 - 0.50 10*3/uL Basophil # 0.10 0.00 - 0.20 10*3/uL nRBC % 0.0 /100 WBCs nRBC # <0.01 <0.01 10*3/uL Basic metabolic panel Collection Time: 06/05/24 3:49 AM Specimen: Venous, Central Line; Blood Result Value Ref Range NA 137 135 - 145 mmol/L K 3.7 3.5 - 5.3 mmol/L Cl 99 98 - 107 mmol/L CO2 27 22 - 32 mmol/L BUN 7 7 - 23 mg/dL Creatinine 0.62 0.50 - 1.20 mg/dL Glucose 122 (H) 65 - 99 mg/dL Calcium 9.0 8.6 - 10.5 mg/dL Anion Gap 11 5 - 15 eGFR >90 >=60 mL/min/1.73m2 Magnesium Collection Time: 06/05/24 3:49 AM Specimen: Venous, Central Line; Blood Result Value Ref Range MG 1.8 1.6 - 2.4 mg/dL Vitamin B12 Collection Time: 06/05/24 3:49 AM Specimen: Venous, Central Line; Blood Result Value Ref Range Vitamin B12 1,249 (H) 232 - 1,245 pg/mL Folate Collection Time: 06/05/24 3:49 AM Specimen: Venous, Central Line; Blood Result Value Ref Range Folate 15.5 4.8 - 24.2 ng/mL IMAGING/OTHER STUDIES: MRI Cervical Spine W WO Contrast, MRI [...] to obtain the completed interpretation. Workstation ID: [id number] MRI Lumbar Spine W WO Contrast Result [...] to obtain the completed interpretation. Workstation ID: [id number] Most recent and pertinent Imaging result reports reviewed. HOSPITAL PROBLEMS: Principal Problem: Left leg weakness Active Problems: Hematuria Pelvic abscess in female Gait instability Thrombocytosis Anemia Assessment & Plan Gait instability Patient is mainly brought to the hospital [...] the last 1 year. MRI spine demonstrating m ultilevel multifactorial degenerative changes most pronounced at C5-C6 and C6-C7 levels where thereis up to moderate to severe left neural foraminal narrowing and mild spinal canal stenosis, howeverthere is no significant neural foraminal or spinal canal stenosis at the thoracic levels and there is no abnormal signal or postcontrast enhancement through the spinal cord. The degenerative changes s een on imaging are not felt to be consistent with the patient's clinical symptoms. Neurology consulted, feeling that lower extremity weakness on exam is more likely secondary to suprapubic pain, and with encouragement weakness was slightly better prior to previous exams. They do agree with plan forMRI pelvis and MRI brain although have low suspicion for new septic emboli. - Neurology following -TTE with bubble study, no vegetation noted - MRI brain with and without contrast, pending - MRI pelvis and proximal lower extremities with contrast, pending - Myositis panel, pending - Serum paraneoplastic panel, pending - Further labs for autoimmune workup including: AMADOU, RF, anti-dsDNA, raymond (SM), ROLLER STAKER, C3, C4, ESR, CRP, pending - Further metabolic testing: aldolase, Vitamin D, Ca, LDH, pending - Can consider electromyography pending some of the aforementioned testing - folate/b12 levels, pending Left leg weakness See gait instability and patient summary Pelvic abscess in female Recently been diagnosed with pelvic abscess, 4 [...] -Continue ceftriaxone and Flagyl -Blood cultures from . [facility] growing Streptococcus intermedius. -MRI pelvis and proximal lower extremities with contrast, as needed premed w/ Dilaudid once -Oxycodone 5 mg - 10 mg for moderate - severe pain every [address] chest performed and significant for biapical [...] checks. -Infectious disease consulted -HIV antibodies, pending Hematuria Recently diagnosed with PE due to pulmonary [...] continue the Eliquis - Continue close monitoring. Thrombocytosis Patient was significant acute thrombocytosis on labs, [...] -Consider further infectious workup (e.g. HIV) Anemia Patient with slight but stable anemia, Hgb around 10. Iron studies significant for ferritin of 451,iron concentration 26, iron binding capacity 240, transferrin 192, percent saturation of 11%. Iron studies suggestive of mixed chronic inflammatory and iron deficiency anemia. -Hematology consulted -Venofer IV 5 days Hyperlipidemia -Continue home atorvastatin 40 mg daily Anxiety -Continue home clonazepam 0.5 mg 3 times daily -Continue home lamotrigine 200 mg twice daily -Continue home duloxetine 120 mg daily -Continue home Adderall 30 mg twice daily as needed GLOBAL PLAN OF CARE FLUIDS AND NUTRITION FLUIDS: NUTRITION: Diet, Adult Full participation; Regular QUALITY Central Venous Catheter: keep central line in for IV antibiotics. VTE PROPHYLAXIS Apixaban ADVANCED CARE PLANNING Code Status: Full Code Medical Decision Maker: Patient Signature: Tim Rainey MD Electronic Signature Cosigned by Eliazar Morgan MD at 06/06/2024 12:58 PM EST Associated attestation - Eliazar Morgan MD - 06/06/2024 12:58 PM EST I saw and evaluated the patient. Case discussed with the resident/fellow and I agree with the findings and plan as documented in the resident's/fellow's note. Patient seen and examined on 06/05/2024. Unable to tolerate MRI last night. Awaiting MRI for tomorrow. Patient remained stable. 1 low blood pressure overnight. I spent a total of 42 minutes on the date of encounter, which included: * Tim Rainey MD - 06/04/2024 7:53 AM EST DAILY PROGRESS NOTE INTERNAL MEDICINE 06/04/2024 Dorothy Vázquez is a 63 y.o. female who was admitted on 06/01/2024 (Hospital Day: 4) due to Weakness of both lower extremities. SUBJECTIVE CHIEF COMPLAINT: Hematuria and Lower extremity weakness Patient seen bedside this morning and appears to be comfortable, she continues to endorse general weakness and pain when moving her lower extremities. She denies new onset lightheadedness, dizziness,vision changes, confusion, chest pain, or shortness of breath. 24 HOUR EVENTS: -Platelets elevated to 1166 -1 L normal saline at 125 cc an hour -Hematology consulted -Further workup for weakness pending per neurology recs -Planning for MRI brain and MRI pelvis on 06/05 Vitals: -Hemodynamically stable -Afebrile BM: 2/09/25 Micro: -Blood Cultures, NGTD Labs: White blood cell 11.6 Hemoglobin 10.3 Platelet count 1166 (805) Sodium 138 Potassium 4.0 Chloride 99 Anion gap 13 Glucose 186 Calcium 9.5 Mag 2 point LDH 188 C-reactive protein 59.2 Sed rate 84 REVIEW OF SYSTEM As her above OBJECTIVE VITAL SIGNS FOR PAST 24 Hours : Reviewed MEDICATIONS: Current hospital medications reviewed. PHYSICAL EXAM: General: Awake, alert, oriented, not in acute distress Head: Normocephalic Eyes: PERRLA, EOMI, ENT: Mucous membrane moist, Neck: Supple Respiratory: respiratory effort normal, no distress, clear to auscultation bilaterally no rhonchi, no rales, no wheezing. Cardiovascular: Regular rhythm, S1, S2, normal, no murmur, rubs, gallops Abdomen: Soft, non-tender, non-distended, Genitourinary: No CVA tenderness Skin: No acute significant skin lesion Extremities: non tender,no edema Psychiatric: mood normal Neurologic: Awake, alert, oriented, speech normal, CN2-12 intact, lower extremity- proximal weakness of the muscles appearing to be secondary to pain, unable to actively raise the leg above the bed, however when assisted, able to hold hip flexion against force with good strength, patient grimacing while doing so, and reporting pain in lower abdomen. She can move her legs laterally.she has retained sensation to light touch throughout with decreased vibratory senses distally especially on the right. Hyperreflexia throughout- bilateral. LAB: Recent Results (from the past 24 hours) CBC Auto Differential Collection Time: 06/03/24 11:01 AM Specimen: Venous, Central Line; Blood Result Value Ref Range WBC 11.3 (H) 3.8 - 10.8 10*3/uL RBC 3.59 (L) 3.80 - 5.10 10*6/uL Hemoglobin 10.1 (L) 11.7 - 15.5 g/dL Hematocrit 31.2 (L) 35.0 - 45.0 % MCV 86.9 80.0 - 100.0 fL MCH 28.1 27.0 - 33.0 pg MCHC 32.4 32.0 - 36.0 g/dL RDW 14.0 11.0 - 15.0 % Platelets 805 (H) 140 - 400 10*3/uL MPV 8.5 7.5 - 12.5 fL Neutrophil % 61.3 % Immature Grans % 0.4 0.0 - 0.9 % Lymphocyte % 26.0 % Monocyte % 10.6 % Eosinophil % 1.1 % Basophil % 0.6 % Neutrophil # 6.91 1.50 - 7.80 10*3/uL Immature Grans # 0.05 (H) <=0.03 10*3/uL Lymphocyte # 2.90 0.85 - 3.90 10*3/uL Monocyte # 1.20 (H) 0.20 - 0.95 10*3/uL Eosinophil # 0.10 0.02 - 0.50 10*3/uL Basophil # 0.10 0.00 - 0.20 10*3/uL nRBC % 0.0 /100 WBCs nRBC # <0.01 <0.01 10*3/uL Basic metabolic panel Collection Time: 06/03/24 11:01 AM Specimen: Venous, Central Line; Blood Result Value Ref Range NA 137 135 - 145 mmol/L K 4.3 3.5 - 5.3 mmol/L Cl 98 98 - 107 mmol/L CO2 26 22 - 32 mmol/L BUN 11 7 - 23 mg/dL Creatinine 0.73 0.50 - 1.20 mg/dL Glucose 118 (H) 65 - 99 mg/dL Calcium 9.5 8.6 - 10.5 mg/dL Anion Gap 13 5 - 15 eGFR >90 >=60 mL/min/1.73m2 Magnesium Collection Time: 06/03/24 11:01 AM Specimen: Venous, Central Line; Blood Result Value Ref Range MG 2.0 1.6 - 2.4 mg/dL C-reactive protein Collection Time: 06/03/24 11:01 AM Specimen: Venous, Central Line; Blood Result Value Ref Range C Reactive Protein 59.2 (H) <=9.9 mg/L Sedimentation Rate Collection Time: 06/03/24 6:19 PM Specimen: Venous, Central Line; Blood Result Value Ref Range Sed Rate 84 (H) <30 mm/Hr mm/Hr Lactate dehydrogenase Collection Time: 06/03/24 6:19 PM Specimen: Venous, Central Line; Blood Result Value Ref Range LDH 188 135 - 225 U/L CBC Auto Differential Collection Time: 06/04/24 3:44 AM Specimen: Venous, Peripheral; Blood Result Value Ref Range WBC 11.6 (H) 3.8 - 10.8 10*3/uL RBC 3.81 3.80 - 5.10 10*6/uL Hemoglobin 10.3 (L) 11.7 - 15.5 g/dL Hematocrit 32.7 (L) 35.0 - 45.0 % MCV 85.8 80.0 - 100.0 fL MCH 27.0 27.0 - 33.0 pg MCHC 31.5 (L) 32.0 - 36.0 g/dL RDW 14.0 11.0 - 15.0 % Platelets 1,166 (HH) 140 - 400 10*3/uL MPV 8.5 7.5 - 12.5 fL nRBC % 0.0 /100 WBCs nRBC # <0.01 <0.01 10*3/uL Basic metabolic panel Collection Time: 06/04/24 3:44 AM Specimen: Venous, Peripheral; Blood Result Value Ref Range NA 138 135 - 145 mmol/L K 4.0 3.5 - 5.3 mmol/L Cl 99 98 - 107 mmol/L CO2 26 22 - 32 mmol/L BUN 10 7 - 23 mg/dL Creatinine 0.71 0.50 - 1.20 mg/dL Glucose 186 (H) 65 - 99 mg/dL Calcium 9.5 8.6 - 10.5 mg/dL Anion Gap 13 5 - 15 eGFR >90 >=60 mL/min/1.73m2 Magnesium Collection Time: 06/04/24 3:44 AM Specimen: Venous, Peripheral; Blood Result Value Ref Range MG 2.0 1.6 - 2.4 mg/dL Manual Differential Collection Time: 06/04/24 3:44 AM Specimen: Venous, Peripheral; Blood Result Value Ref Range Neutrophil %, Manual 49 % Lymphocyte %, Manual 40 % Monocyte %, Manual 9 % Eosinophil %, Manual 0 % Basophil %, Manual 1 % Reactive Lymphocyte % 1 0 - 6 % Total Neutrophil #, Manual 5.68 1.50 - 7.80 10*3/uL Total Lymph #, Manual 4.76 (H) 0.85 - 3.90 10*3/uL Monocyte #, Manual 1.04 (H) 0.20 - 0.95 10*3/uL Eosinophil #, Manual 0.00 (L) 0.02 - 0.50 10*3/uL Basophil #, Manual 0.12 0.00 - 0.20 10*3/uL Reactive Lymphocytes # 0.12 10*3/uL Platelet Estimate Increased (A) Adequate RBC Morphology Normal Normal, No clinically significant RBC morphology present ([facility] guidelines, 2015). Total Cells Counted 114 IMAGING/OTHER STUDIES: MRI Cervical Spine W WO Contrast, MRI [...] findings as reported or so edited. Trainee: Rastislav Osadsky If this radiology report containsa blank impression section, it is an incomplete radiology report. Please contact the interpreting radiologist or applicable radiology division as soon as possible to obtain the completed interpretation. Workstation ID: [id number] MRI Lumbar Spine W WO Contrast Result [...] to obtain the completed interpretation. Workstation ID: [id number] Most recent and pertinent Imaging result reports reviewed. HOSPITAL PROBLEMS: Principal Problem: Weakness of both lower extremities Active Problems: Hematuria Pelvic abscess in female Gait instability Assessment & Plan Left leg weakness See gait instability and patient summary Gait instability Patient is mainly brought to the hospital due to gait instability. Patient was recently dischargedhome with recommendation for home PT-OT but since [...] for autoimmune workup including: AMADOU, RF, anti-dsDNA, raymond (SM), ROLLER STAKER, C3, C4, ESR, CRP - Further metabolic testing: aldolase, Vitamin D, Ca, LDH - Can consider electromyography pending some of the aforementioned testing - Neurology following - folate/b12 levels, pending Pelvic abscess in female Recently been diagnosed with pelvic abscess, 4 [...] -Continue ceftriaxone and Flagyl -Blood cultures from . V growing Streptococcus intermedius. -MRI pelvis and proximal lower extremities with contrast (to eval for inflammatory changes or abscess(es) in muscles), Hematuria Recently diagnosed with PE due to pulmonary [...] continue the Eliquis - Continue close monitoring. Thrombocytosis Patient was significant acute thrombocytosis on labs, [...] -Consider further infectious workup (e.g. HIV) Anemia Patient with slight but stable anemia, Hgb around 10. Iron studies significant for ferritin of 451,iron concentration 26, iron binding capacity 240, transferrin 192, percent saturation of 11%. Iron studies suggestive of mixed chronic inflammatory and iron deficiency anemia. -Hematology consulted -Venofer IV 5 days GLOBAL PLAN OF CARE FLUIDS AND NUTRITION FLUIDS: Current Fluids/Electrolytes/TPN Stop sodium chloride 0.9% (NS) premix infusion intravenous, Continuous 06/04/24 1429 NUTRITION: Diet, Adult Full participation; Regular QUALITY Central Venous Catheter: keep central line in for IV antibiotics. VTE PROPHYLAXIS Apixaban ADVANCED CARE PLANNING Code Status: Full Code Medical Decision Maker: Patient Signature: Tim Rainey MD Electronic Signature Cosigned by Eliazar Morgan MD at 06/05/2024 4:06 PM EST Associated attestation - Eliazar Morgan MD - 06/05/2024 4:06 PM EST I saw and evaluated the patient. Case discussed with the resident/fellow and I agree with the findings and plan as documented in the resident's/fellow's note. Unable to get MRI today. Tentatively plan for tomorrow. Echocardiogram without any vegetations. Blood cultures remain negative. Still without clear cause. CT showed multiple (likely infectious) nodules. In the setting of her reported night sweats we did discuss this case with ID who did not feel that it was consistent with TB. Advise continuing IV antibiotics given persistent abscess. I spent a total of 52 minutes on the date of encounter, which [...] Documenting clinical information in the health record * Dejah Sweeney MD - 06/03/2024 8:15 AM EST DAILY PROGRESS NOTE INTERNAL MEDICINE 06/03/2024 Dorothy Vázquez is a 63 y.o. female who was admitted on 06/01/2024 (Hospital Day: 3) due to Weakness of both lower extremities. SUBJECTIVE CHIEF COMPLAINT: Hematuria and Lower extremity weakness Patient assessed at bedside this morning. States she is well although still is feeling very week. She also mentions that she is having pain in her pelvic region. She states that her weakness is more so in her LE. She denied any other symptoms such as headache, blurry vision, numbness or tingling. 24 HOUR EVENTS: - MRI final read pending - No further hematuria reported - Further workup for weakness pending per neurology recs - Leukocytosis stable at 11.3 - Bcx NGTD REVIEW OF SYSTEM As her above OBJECTIVE VITAL SIGNS FOR PAST 24 Hours : Reviewed MEDICATIONS: Current hospital medications reviewed. PHYSICAL EXAM: General: Awake, alert, oriented, not in acute distress Head: Normocephalic Eyes: PERRLA, EOMI, ENT: Mucous membrane moist, Neck: Supple Respiratory: respiratory effort normal, no distress, clear to auscultation bilaterally no rhonchi, no rales, no wheezing. Cardiovascular: Regular rhythm, S1, S2, normal, no murmur, rubs, gallops Abdomen: Soft, non-tender, non-distended, Genitourinary: No CVA tenderness Skin: No acute significant skin lesion Extremities: non tender,no edema Psychiatric: mood normal Neurologic: Awake, alert, oriented, speech normal, CN2-12 intact, lower extremity- proximal weakness of the muscles, unable to actively raise the leg above the bed, can move laterally, patellar hyperreflexia - bilateral. LAB: Recent Results (from the past 24 hours) Blood Culture, Peripheral #1 Collection Time: 06/02/24 4:42 PM Specimen: Venous, Peripheral; Blood Result Value Ref Range Culture No growth to date Blood Culture, Peripheral #2 Collection Time: 06/02/24 4:42 PM Specimen: Venous, Peripheral; Blood Result Value Ref Range Culture No growth to date CBC Auto Differential Collection Time: 06/03/24 11:01 AM Specimen: Venous, Central Line; Blood Result Value Ref Range WBC 11.3 (H) 3.8 - 10.8 10*3/uL RBC 3.59 (L) 3.80 - 5.10 10*6/uL Hemoglobin 10.1 (L) 11.7 - 15.5 g/dL Hematocrit 31.2 (L) 35.0 - 45.0 % MCV 86.9 80.0 - 100.0 fL MCH 28.1 27.0 - 33.0 pg MCHC 32.4 32.0 - 36.0 g/dL RDW 14.0 11.0 - 15.0 % Platelets 805 (H) 140 - 400 10*3/uL MPV 8.5 7.5 - 12.5 fL Neutrophil % 61.3 % Immature Grans % 0.4 0.0 - 0.9 % Lymphocyte % 26.0 % Monocyte % 10.6 % Eosinophil % 1.1 % Basophil % 0.6 % Neutrophil # 6.91 1.50 - 7.80 10*3/uL Immature Grans # 0.05 (H) <=0.03 10*3/uL Lymphocyte # 2.90 0.85 - 3.90 10*3/uL Monocyte # 1.20 (H) 0.20 - 0.95 10*3/uL Eosinophil # 0.10 0.02 - 0.50 10*3/uL Basophil # 0.10 0.00 - 0.20 10*3/uL nRBC % 0.0 /100 WBCs nRBC # <0.01 <0.01 10*3/uL Basic metabolic panel Collection Time: 06/03/24 11:01 AM Specimen: Venous, Central Line; Blood Result Value Ref Range NA 137 135 - 145 mmol/L K 4.3 3.5 - 5.3 mmol/L Cl 98 98 - 107 mmol/L CO2 26 22 - 32 mmol/L BUN 11 7 - 23 mg/dL Creatinine 0.73 0.50 - 1.20 mg/dL Glucose 118 (H) 65 - 99 mg/dL Calcium 9.5 8.6 - 10.5 mg/dL Anion Gap 13 5 - 15 eGFR >90 >=60 mL/min/1.73m2 Magnesium Collection Time: 06/03/24 11:01 AM Specimen: Venous, Central Line; Blood Result Value Ref Range MG 2.0 1.6 - 2.4 mg/dL IMAGING/OTHER STUDIES: CT Abd Pelvis W Contrast Addendum Date: 06/01/2024 Addendum: COMMUNICATION: The findings were communicated via [employer] secure chat acknowledged by Dr. Khan at 5:35 PM on 06/01/2024. If this radiology report contains a blank impression section, it is an incomplete radiology report. Please contact the interpreting radiologist or applicable radiology division as soon as possible to obtain the completed interpretation. Workstation ID: [id number] Result Date: 06/01/2024 1. Segmental pulmonary embolism [...] the ordering or responsible provider via the [facility] system on 06/01/2024 5:05 PM. Receipt of this communication by the responsible provider will be documented in [facility] upon receiving acknowledgement if applicable, Message ID [id number]. If this radiology report contains a blank impression section, it is an incomplete radiology report. Please contact the interpreting radiologist or applicable radiology division as soon as possible to obtain the completed interpretation. Workstation ID: [id number] Most recent and pertinent Imaging result reports reviewed. HOSPITAL PROBLEMS: Principal Problem: Weakness of both lower extremities Active Problems: Hematuria Pelvic abscess in female Gait instability Assessment & Plan Weakness of both lower extremities See gait instability and patient summary Gait instability Patient is mainly brought to the hospital [...] for autoimmune workup including: AMADOU, RF, anti-dsDNA, raymond (SM), ROLLER STAKER, C3, C4, ESR, CRP - Further metabolic testing: aldolase, Vitamin D, Ca, LDH - Can consider electromyography pending some of the aforementioned testing - Neurology following Pelvic abscess in female Recently been diagnosed with pelvic abscess, 4 [...] -Continue ceftriaxone and Flagyl -Blood cultures from [facility] growing Streptococcus intermedius. -MRI pelvis and proximal lower extremities with contrast (to eval for inflammatory changes or abscess(es) in muscles), Hematuria Recently diagnosed with PE due to pulmonary [...] continue the Eliquis - Continue close monitoring. I have discussed the plan of care with: Patient and Inter-professional team. GLOBAL PLAN OF CARE FLUIDS AND NUTRITION FLUIDS: NUTRITION: Diet, Adult Full participation; Regular QUALITY Central Venous Catheter: keep central line in for IV antibiotics. VTE PROPHYLAXIS Apixaban ADVANCED CARE PLANNING Code Status: Full Code Medical Decision Maker: Patient Signature: Dejah Sweeney MD Electronic Signature Cosigned by Chelsea Salinas MD at 06/03/2024 3:58 PM EST Associated attestation - Chelsea Salinas MD - 06/03/2024 3:58 PM EST I saw and evaluated the patient. Case discussed with the resident/fellow and I agree with the findings and plan as documented in the resident's/fellow's note. I spent a total of 60 minutes on the date of encounter, which [...] patient/family/caregiver ?? Care coordination not separately reported Patient chart reviewed and available records reviewed from [facility] from [facility] and [facility]. Patient has a history of spiculated lung mass s/p resection with path that was negative for malignancy.Of note, she also has a significant family history for multiple cancers: Family History Problem Relation Age of Onset Hyperlipidemia Mother Prostate cancer Father Graves' disease Brother Breast cancer Maternal Grandmother Ovarian cancer Maternal Grandmother Lung cancer Maternal Grandfather Graves' disease Paternal Grandmother Breast cancer Paternal Grandmother Bladder Cancer Paternal Grandmother Liver cancer Paternal Grandfather Uterine cancer Father's Sister Ovarian cancer Paternal Great-grandmother Her [facility] records show that due to her elevated breast cancer risk, her screening is done every 6months with either mammography or MRI. Also of note, she has a hx of spinal stenosis (mild) per [facility] records. I spoke with patient and she reports that when she thinks back now, she thinks that her LE weaknessmay have been somewhat present in the past and may have suddenly worsened recently. Given the significant Family history and her spinal stenosis history, we spoke with urology as wellas neurology to update our regulatory services consultant teams of this history. MRI spine done at [facility] showing: - Mild L5-S1 disc degeneration without significant spinal canal or neural foraminal narrowing. - Multilevel multifactorial degenerative changes most pronounced at C5-C6 and C6-C7 levels where there is up to moderate to severe left neural foraminal narrowing and mild spinal canal stenosis. - No significant neural foraminal or spinal canal stenosis at thoracic levels. Per discussion with neurology, will proceed with work up with: - TTE with bubble study - MRI brain with and without contrast - MRI pelvis and proximal lower extremities with contrast (to eval for inflammatory changes or abscess(es) in muscles) - Myositis panel - Serum paraneoplastic panel - Further labs for autoimmune workup including: AMDAOU, RF, anti-dsDNA, raymond (SM), ROLLER STAKER, C3, C4, ESR, CRP - Further metabolic testing: aldolase, Vitamin D, Ca, LDH Per discussion with urology, work up for suspected bladder/ malignancy will be done outpatient and no additional inpatient work up from urology perspective. - Will need to expedite outpatient urology follow up upon discharge - high risk for DVT/PE, will resume Eliquis. If she continues having hematuria, she may need IVC filter placement. * Bin Fairchild MD - 06/02/2024 4:18 PM EST DAILY PROGRESS NOTE INTERNAL MEDICINE 06/02/2024 Dorothy Vázquez is a 63 y.o. female who was admitted on 06/01/2024 (Hospital Day: 2) due to Hematuria. SUBJECTIVE CHIEF COMPLAINT: Chief Complaint Patient presents with Blood in Urine 06/02/2024 Lower extremity weakness. 24 HOUR EVENTS: Admitted for hematuria while on oral anticoagulation. Evaluated by urology Hematuria resolved -continues on anticoagulation. Neurology consulted - tests ordered as per recommendations. REVIEW OF SYSTEM Lower extremity weakness Pelvic fullness and suprapubic fullness No incontinence of bowel or bladder OBJECTIVE VITAL SIGNS FOR PAST 24 Hours : Reviewed MEDICATIONS: Current hospital medications reviewed. PHYSICAL EXAM: General: Awake, alert, oriented, not in acute distress Head: Normocephalic Eyes: PERRLA, EOMI, ENT: Mucous membrane moist, Neck: Supple Respiratory: respiratory effort normal, no distress, clear to auscultation bilaterally no rhonchi, no rales, no wheezing. Cardiovascular: Regular rhythm, S1, S2, normal, no murmur, rubs, gallops Abdomen: Soft, non-tender, non-distended, Genitourinary: No CVA tenderness Skin: No acute significant skin lesion Extremities: non tender,no edema Psychiatric: mood normal Neurologic: Awake, alert, oriented, speech normal, CN2-12 intact, lower extremity- proximal weakness of the muscles, unable to actively raise the leg above the bed, can move laterally, patellar hyperreflexia - bilateral. LAB: Most recent pertinent laboratory results reviewed. IMAGING/OTHER STUDIES: CT Abd Pelvis W Contrast Addendum Date: 06/01/2024 Addendum: COMMUNICATION: The findings were communicated via [employer] secure chat acknowledged by Dr. Khan at 5:35 PM on 06/01/2024. If this radiology report contains a blank impression section, it is an incomplete radiology report. Please contact the interpreting radiologist or applicable radiology division as soon as possible to obtain the completed interpretation. Workstation ID: [id number] Result Date: 06/01/2024 1. Segmental pulmonary embolism [...] the ordering or responsible provider via the [facility] system on 06/01/2024 5:05 PM. Receipt of this communication by the responsible provider will be documented in [facility] upon receiving acknowledgement if applicable, Message ID [id number]. If this radiology report contains a blank impression section, it is an incomplete radiology report. Please contact the interpreting radiologist or applicable radiology division as soon as possible to obtain the completed interpretation. Workstation ID: [id number] Most recent and pertinent Imaging result reports reviewed. HOSPITAL PROBLEMS: Principal Problem: Hematuria Active Problems: Pelvic abscess in female Gait instability Pertinent recent patient summary 63-year-old female with history of bipolar disorder recent diagnosis of acute pulmonary embolism, unspecified dementia, with mood disturbance, major depression disorder, nonrheumatic mitral valve insufficiency, venous thrombosis of the leg, hyperlipidemia. Patient had recently presented to [facility] 1-week bilateral hip and groin pain. The pain progressively got worse, and the patient started having unsteady gait and difficulty walking. Patient was evaluated in the ED at [facility] on 05/05 for dizziness resulting in a fall with head trauma with a laceration that was repaired with wallace. She has had ongoing dizziness for several months. Patient was diagnosed with multiple bilateral lower lobe acute segmental/subsegmental pulm emboli more on the left than on the right. Interstitial alveolar edema, small left lower lobe pulmonary infarct/hemorrhage, incidental 0.7 cm right thyroid nodule on a CT scan of 05/20/2024. Patient had an echocardiogram done on 05/21/2024 with the report, he mentioned technically difficultstudy. Ejection fraction 60 to 65%, mild mitral regurgitation, normal left ventricular size and wall thickness, normal right ventricular size and function. Mild mitral regurgitation, mild tricuspid re gurgitation. Patient also underwent MRI of the lumbar spine on 05/22/2024 with the summary report impression reported as no high-grade spinal canal stenosis. No other acute MRI findings within the lumbar spine. MRI of the pelvis with and without contrast was done on 05/21/2024, report summary with findings suspicious for 3.6 cm abscess collection within the left obturator muscle. Urinary bladder wall thickening, to represent cystitis. MRI of the brain was done with the report reading no acute intracranial changes. No restriction of diffusion with no evidence of abscess, no mass effect or abnormal enhancement. MRI thoracic with and without contrast was done on 05/22/2024 with the report reading no definite evidence of fluid collection soft tissues are intact. No significant disc abnormality or critical canal stenosis. Mild chronic degenerative changes. No abnormal enhancement reported. While at [facility] was noted to have proximal muscle proximal pain and weakness. Pain with bilateral hip flexion, unable to straight leg raise. No pain with passive straight leg raise. Sensationsare intact in distal strength was reported. Patient underwent percutaneous aspiration and drainage of the of the left obturator muscle abscess on May 29, 2024. Blood cultures from 05/21/2024 grew gram-positive cocci in chains in aerobic bottle only. Later identified as Streptococcus intermedius Patient was discharged home with plans to complete the antibiotic therapy with Ceftriaxone at home.Patient presented to the ED at [facility] on 06/01/2024 with the complaints of hematuria. Urology evaluated the patient. Hematuria has resolved. Patient continues Eliquis for anticoagulation. She is also continued antibiotics Ceftriaxone and Flagyl. Given the presence of lower extremity weakness, neurology evaluation has been requested. Blood cultures sent, MRI of the cervical, thoracic and lumbar spine, ordered with and without contrast. TTE with bubble study ordered. Patient reportedly has cognitive dysfunction, leading to poor history and more reliance on the available medical records to follow the progression of her overall illness. Assessment & Plan Weakness of both lower extremities See gait instability and patient summary Gait instability Patient is mainly brought to the hospital [...] bubble study Follow the progression of disease Pelvic abscess in female Recently been diagnosed with pelvic abscess, 4 [...] Continue ceftriaxone and Flagyl Blood cultures from [facility] growing Streptococcus intermedius. Hematuria Recently diagnosed with PE due to pulmonary [...] to continue the Eliquis Continue close monitoring. I have discussed the plan of care with: Patient and Inter-professional team. GLOBAL PLAN OF CARE FLUIDS AND NUTRITION FLUIDS: NUTRITION: Diet, Adult Full participation; Regular QUALITY Central Venous Catheter: keep central line in for IV antibiotics. VTE PROPHYLAXIS Apixaban ADVANCED CARE PLANNING Code Status: Full Code Medical Decision Maker: I have reviewed, updated, and verified this note's content. I spent a total of 53 minutes on the date of encounter, which [...] patient/family/caregiver ?? Care coordination not separately reported Signature: Bin Fairchild MD Electronic Signature documented in this encounter H&P Notes * Juma Hernandez MD - 06/01/2024 9:36 PM EST History and Physical CHIEF COMPLAINT: Hematuria and difficulty ambulating HISTORY OF PRESENT ILLNESS: History obtained from: Patient and Family Member: 63 years old female, past medical history of MDD, memory loss and pelvic DVT/abscess recently discharged from [facility] after being treated for PE, pelvic DVT and intra-abdominal abscess with IR drainage has returned to the hospital complaining of difficulty getting out of the bed and hematuria. Per records, patient presented to [facility] about 10 days ago with severe pelvic [...] Surgical History: No Surgical History Home Medications: atorvastatin (LIPITOR) 40 mg tablet, TAKE ONE TABLET (40 MG TOTAL) BY MOUTH 1 (ONE) TIME EACH DAY FOR CHOLESTEROL clonazePAM (KlonoPIN) 0.5 mg tablet, Take 0.5 mg by mouth 3 times a day. dextroamphetamine-amphetamine (ADDERALL) 30 mg tablet, Take 1 tablet by mouth 2 times a day. DULoxetine DR (CYMBALTA) 60 mg capsule, Take 120 mg by mouth daily. lamoTRIgine (LaMICtal) 200 mg tablet, Take 200 mg by mouth 2 times a day. mirtazapine (REMERON) 15 mg tablet, Take 15 mg by mouth nightly. propranoloL (INDERAL) 10 mg tablet, Allergies: Ampicillin Cephalexin Penicillin G Potassium Social History: Tobacco Use Smoking status: Never Smokeless tobacco: Never Substance Use Topics Alcohol use: Never Drug use: Never Family History: History reviewed. [...] has been discharged homewith recommendation for home PT-OT but since being [...] ceftriaxone and Flagyl 2-follow-up with cultures from [facility] from IR abscess drainage GLOBAL [...] MD Electronic Signature documented in this encounter Procedure Notes * Eliazar Hammond RN - 06/07/2024 3:51 PM ESTAssociated Order(s): OPERATIONS COORDINATOR PICC and Midline Images from the original note were not included. [facility] IV Access Nursing Procedure Note PICC line insertion Date/Time: 06/07/2024 3:55 PM Performed by: Eliazar Hammond RN Provider type: External RN Vendor Reason for Insertion: intravenous antibiotics Successful placement: yes [place] Protocol Patient identity confirmed: Name and MRN [...] lumen Catheter Size (fr): 4 Lot #: [id number] Catheter Total Length (cm): 38 Catheter External Length (cm): 0 Post-Procedure Central Line Bundle Guidewire Removal Confirmed?: Yes All Ports Capped?: Yes Verification of Line Placement: ECG guidance system Dressing Applied: Antimicrobial Post-Procedure Details Patient tolerance of procedure: Tolerated well, no immediate complications Significant events: None Plan: PICC line ready for immediate use Handoff Report Given to: MJ Alfredo RN Dorothy Vázquez : 1960 CSN: [id number] documented in this encounter Consult Notes * Mitchell Elena IV, MD - 06/05/2024 8:46 PM ESTAssociated Order(s): IP CONSULT TO INFECTIOUS DISEASES Infectious Disease Consult Note Date of admission: 06/01/2024 11:18 AM Consult requested by: Attending Provider: Eliazar Morgan MD [phone] Reason for consult: Groin Abscess Chief complaint: Blood in urine History of present illness: Dorothy Vázquez is a 63 y.o. female with h/o major depressive disorder, memory loss recently hospitalized at [facility] where she was treated for strep intermedius bacteremia, pelvic abscess-s/p drainage on 05/29 and was treated with ceftriaxone/Flagyl with tentative plan to complete 14 days of therapy ending 06/04. Over the course of hospitalization she was found to have DVT/pulmonary embolism and she was started on anticoagulation. She was admitted to [facility] 4days back with hematuria. ID was engaged today because of CT chest findings of nodular lesions in the left lower zone. She has remained hemodynamically stable and afebrile throughout hospital her blood cultures drawn on 06/02 are negative. She did have leukocytosis on presentation with WBC count of 14.1 which has sincenormalized. Review of care everywhere reveals extensive workup done in [facility] including a transthoracic and transesophageal echocardiogram [...] present illness. Past Medical History: Diagnosis Date Anxiety Depression High cholesterol Lung nodule s/p resection Syncope Past Surgical History: Procedure Laterality Date LUNG SEGMENTECTOMY 11/15/2022 MGB resection of a spiculated lung lesion; path is neg for malignancy Social History Tobacco Use Smoking status: Never Smokeless tobacco: Never Substance Use Topics Alcohol use: Never Drug use: Never Family History Problem Relation Age of Onset Hyperlipidemia Mother Prostate cancer Father Graves' disease Brother Breast cancer Maternal Grandmother Ovarian cancer Maternal Grandmother Lung cancer Maternal Grandfather Graves' disease Paternal Grandmother Breast cancer Paternal Grandmother Bladder Cancer Paternal Grandmother Liver cancer Paternal Grandfather Uterine cancer Father's Sister Ovarian cancer Paternal Great-grandmother Medications: apixaban, 5 [...] mg, oral, Nightly Allergies: Allergies Allergen Reactions Ampicillin Rash Cephalexin Rash Penicillin G Potassium Rash Physical Exam: Temp: [...] from last 7 days Lab Units 06/05/24 0349 06/04/24 2241 06/04/24 0957 WBC 10*3/uL 9.5 10.7 10.2 HEMOGLOBIN g/dL 9.2* 9.1* 9.7* HEMATOCRIT % 28.8* 27.7* 30.7* PLATELETS 10*3/uL 830* 803* 813* Results from last 7 days Lab Units 06/05/24 0349 06/04/24 2237 06/04/24 0344 SODIUM mmol/L 137 136 138 [...] Value - Date/Time Blood Culture, Peripheral #1 [[id number]] Collected: 06/02/24 1642 Lab Status: Preliminary result Specimen: Blood from Venous, Peripheral Updated: 06/03/24 0646 Culture No growth to date Narrative: [facility] Received Date: MICRO NUMBER: [id number] SPECIMEN QUALITY: Adequate SOURCE: BLOOD VENOUS, PERIPHERAL STATUS: PRELIMINARY COMMENT: Aerobic and anaerobic bottle received. Blood Culture, Peripheral #2 [[id number]] Collected: 06/02/24 1642 Lab Status: Preliminary result Specimen: Blood from Venous, Peripheral Updated: 06/03/24 0652 Culture No growth to date Narrative: [facility] Received Date: MICRO NUMBER: [id number] SPECIMEN QUALITY: Adequate SOURCE: BLOOD VENOUS, PERIPHERAL [...] the ordering or responsible provider via the [facility] system on06/05/2024 1:18 PM. Receipt of this communication by the responsible provider will be documented in [facility] upon receiving acknowledgement if applicable, Message ID [id number]. If this radiology report contains a blank impression section, it is an incomplete radiology report. Please contact the interpreting radiologist or applicable radiology division as soon as possible to obtain the completed interpretation. Workstation ID: [id number] Up-to-date CT equipment and radiation dose reduction techniques were employed. CTDIvol: 5.2 mGy. DLP: 154 mGy-cm. Impression: Dorothy Vázquez is a 63 y.o. female with history of major depressive disorder, memory loss, recent hospitalization at [facility] for strep intermedius associated pelvic abscess s/p drainage and 05/29 and a new lead diagnosed DVT with pulmonary embolism for which she was started on anticoagulation. She was admitted at [facility] because of hematuria stop she has [...] intermedius bacteremia --gluteal abscess s/p drainage at [facility] on 05/[address] scan on 06/01 showing residual collection; MAXIMO negative for any vegetations at [facility] # DVT with pulmonary embolism with a [...] Infectious Diseases Dorothy Vázquez : 1960 CSN: [id number] Infectious Disease Attending Addendum I have seen [...] Elena IV, MD MS Transplant/General Infectious Disease Assistant Director Of Plant Operationsstreet contractor [facility] * Oli Hardwick RN - 06/04/2024 2:14 PM EST [facility] IV Access Nursing Consult CONSULTS [facility] GAS CHARGER CONSULT NOTE Oli Hardwick RN Requested by RN to assess Left UE IV device whether it was a Midline or PICC line. It is a single lumen midline with Midline printed on the hub and also the lumen tubing states power injectable midline. Patient's daughter at bedside also confirmed it was a midline place at [facility].Primary RN at bedside and shown the printing. * Fanny Dominguez MD - 06/02/2024 1:15 PM ESTAssociated Order(s): IP CONSULT TO NEUROLOGY [facility] Neurology Initial Consult Note History of Present Illness: Ms. Vázquez is a 63 y.o. female with a history of HLD, syncope, cognitive impairment, bipolar disorder, for whom neurology is consulted for progressive proximal BLE weakness. She was recently admitted at [facility] (discharged 05/30/24) for intra-abdominal abscessof [...] Also while at home after discharge from [facility], she noticed hematuria and suprapubic pain, which prompted her admission at [facility]. She was seen by urology and recommended [...] 05/05/24 - and she was seen at [facility] for this. She endorses anesthesia of the groin during the same time period she has had suprapubic pain, but she is unable to state whether this has been ongoing for days or weeks. She denies recent diplopia, dysphagia, dysarthria, dysphonia, paresthesias, incontinence, constipation, retention. She follows with [facility] neurology for dizziness and cognitive impairment. Past Medical History: Diagnosis Date Anxiety Depression High cholesterol Syncope No past surgical history on file. Medications: Current Facility-Administered Medications Medication Dose Route Frequency Provider Last Rate Last Admin apixaban (ELIQUIS) tablet 5 mg 5 mg oral q12h SERAFIN Hernandez MD 5 mg at 06/02/24 0926 cefTRIAXone (ROCEPHIN) injection 1 g 1 g intravenous q24h SERAFIN Khan MD 1 g at06/02/24 0926 docusate sodium (COLACE) capsule 100 mg 100 mg oral 2x daily Juma Hernandez MD 100 mg at 06/02/24 0926 metroNIDAZOLE (FLAGYL) 500 mg in 0.9% NaCl 100 mL IVPB premix 500 mg intravenous q8h SERAFIN Khan MD 0 mL/hr at 06/01/24 2333 500 mg at 06/02/24 0604 naloxone (NARCAN) injection 0.4 mg 0.4 mg intravenous q2h PRN Juma Hernandez MD naloxone 0.04 mg injection 0.04 mg intravenous q3min PRN Juma Hernandez MD oxyCODONE IR (ROXICODONE) tablet 5 mg 5 mg oral q3h PRN Juma Hernandez MD 5 mg at 06/02/24 0957 Or oxyCODONE IR (ROXICODONE) tablet 20 mg 20 mg oral q6h PRN Juma Hernandez MD 20 mg at 06/02/24 1210 senna (SENOKOT) tablet 17.2 mg 17.2 mg oral Nightly Juma Hernandez MD 17.2 mg at 06/01/24 2233 sodium chloride 0.9% flush 2.5-10 mL 2.5-10 mL intravenous See admin instructions Juma Hernandez MD And sodium chloride 0.9% flush 2.5-10 mL 2.5-10 mL intravenous q12h REPLACED BY [facility] Juma Hernandez MD 10 mL at 06/02/24 0926 traZODone (DESYREL) tablet 150 mg 150 mg oral Nightly Juma Hernandez MD 150 mg at 06/01/24 2233 Allergies: Allergies Allergen Reactions Ampicillin Rash Cephalexin Rash Penicillin G Potassium Rash Social history: Social History Tobacco Use Smoking status: Never Smokeless tobacco: Never Substance Use Topics Alcohol use: Never Drug use: Never Family history: No family [...] symmetrical at first toe bilaterally COORDINATION: Normal rqjsft-fp-zxci testing bilaterally GAIT: When attempting to get out of bed to use the walker, she has to rely on hands on walker and flexes torso forward. Cannot take a step due to difficulty of lifting either knee antigravity while standing Imaging: CTA chest with contrast (at [facility] on 05/20/24): 1.Multiple bilateral lower lobe acute [...] MRI pelvis with and without contrast (at [facility] on 05/21/24): IMPRESSION: 1.Findings suspicious for 3.6 [...] consult service as needed. Kwasi Dominguez MD Assistant Director Of Plant Operations of Neurology documented in this encounter Nursing Notes * Sheila Harris RN - 06/01/2024 10:52 PM EST Pt arrived 0: AxOx4, Pt dx gross hemauria, syncope, bilat leg pain. VSS, Pt with difficulty ambulating weakness legs. 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 Pt c/o pain 5/10 oxy 5mg prn given. Meds whole/thin. Cont plan of care. Pt transfer to [facility]. documented in this encounter ED Notes * Ross Lobato MD - 06/01/2024 10:46 AM EST History HPI: Chief Complaint Patient presents with Blood in Urine HPI 63-year-old female with history of MDD, recent admission at [facility] after being found have Streptococcus intermedius bacteremia [...] she had while she was hospitalized at [facility]. This morning started having some suprapubic discomfort, [...] Patient History Past Medical History: Diagnosis Date Anxiety Depression High cholesterol Syncope No past surgical history on file. No family history on file. Social History Tobacco Use Smoking status: Never Smokeless tobacco: Never Substance Use Topics Alcohol use: Never Drug use: Never Sexuality and Gender Identity Sexuality Legal Information Legal first name: Dorothy Legal last name: Stgermazeem Legal sex: Female Gender Identity Patient's sex [...] with history of MDD, recent admission at [facility] after being found have Streptococcus intermedius bacteremia [...] void here, will plan to place three-way Huff for bladder irrigation. 1500 See ED course below for additional updates. Labs with leukocytosis of 14, hemoglobin 10.2. UA with 3+ blood, greater than 180 RBCs, nitrite negative, negative LE, 0 WBC, no bacteria. BMP with reassuring electrolytes and kidney function. Patient ultimately signed out to [facility] pod team, pending CT abdomen pelvis. Also plan for urology consult given hematuria on anticoagulation. Amount and/or Complexity of Data Reviewed: Type of data reviewed: external radiology data reviewed Type of external notes reviewed: hospitalization Details: 63-year-old female with history of MDD, recent admission at [facility] after being found have Streptococcus intermedius bacteremia likely secondary to left abdominal muscle abscess statuspost IR guided drainage, discharged on IV antibiotics, also found to have PE/DVT discharged on Eliquis ED Course as of 06/04/24 1419 TueJun 01, 2024 1222 ED Attending Note 63 y/o female with recent [facility]' admission who presents with difficulty urinating and lower abd pain/suprapubic pain this AM, dysuria and hematuria. Patient bacteremic at [place]. Also had PE/DVT on eliquis during the visit. Discharged 2 days ago. [CM] 1301 Patient was able to spontaneously void on her own. Given this, will defer 3-way huff at this time. [AP] 1729 CT AP [...] Lobato MD [CM] Luz Fisher MD [MB] MD Dorothy Phipps : 1960 CSN: [id number] Ross Lobato MD Resident 06/04/24 1424 Cosigned by Luz Fisher MD at 06/05/2024 1:55 PM EST Associated attestation - Luz Fisher MD - 06/05/2024 1:55 PM EST Attending to Resident/Fellow - I saw and evaluated the patient. I discussed the case with the resident(s)/fellow(s) and agree with the findings and plan as documented by the resident(s)/fellow(s). Alston elements, clarifications and/or exceptions are noted by me. Dorothy Vázquez : 1960 CSN: [id number] documented in this encounter Miscellaneous Notes * Plan of Care - Raudel Snell RN - 06/08/2024 5:31 PM EST Problem: Adult Inpatient Plan of Care Goal: Plan of Care Review Outcome: Adequate for Discharge Flowsheets (Taken 06/08/2024 1730) Plan of Care Reviewed With: patient Plan of Care Summary: Patient had a suppository for constipation with (+) effect. Medicated for pelvic pain with good effect. Pt is scheduled for discharged to [facility] at 6:30PM Goal: Patient-Specific Goal (Individualized) Outcome: Adequate for Discharge Goal: Absence of Hospital-Acquired Illness or Injury Outcome: Adequate for Discharge Goal: Optimal Comfort and Wellbeing Outcome: Adequate for Discharge Goal: Readiness for Transition of Care Outcome: Adequate for Discharge Plan of Care Summary: Patient had a suppository for constipation with (+) effect. Medicated for pelvic pain with good effect. Pt is scheduled for discharged to [facility] at 6:30PM Plan of Care Reviewed With: patient * Plan of Care - Agnes Morales - 06/08/2024 4:47 PM EST Case Management Discharge note: Hospital Day 7 Pertinent Clinical and medical clearance : Per MDR, the patient is medically cleared to discharge to Rehab today. Final Discharge Plan: Communicated with the patient and Patrick. The patient agrees to discharge to [facility]. Accepted for admission at 6:30pm by [facility] Liaison Sarah Hancock [phone]. S Ambulance transport requested for 6:30 thru Ride Request. Nurse to Nurse Handoff information (if applicable): [phone] Other (including expected out of pocket costs for patient): Transportation cost discussion: TRANSPORTATION DISCLOSURE Discussion with Dorothy Vázquez regarding transportation options for discharge to [facility]. Optionsincluded were Ambulance, Chair Van, or personal/private arrangements. Reviewed potential out of pocket expense for each option and verbally stated that while services are based upon medically necessity, no guarantee of benefits, eligibility or coverage for any transportation arranged can be made. Patient/family acknowledge and elected ambulance. Transportation booked and Certificate of Medical Necessity for ambulance transportation completed online in [employer] * Hospital Course - Luann Cuellar MD - 06/08/2024 4:37 PM EST Internal Medicine Hospital Course Admission dates: 06/01/2024 [...] [facility] Outpatient ID fellow/DEBBIE: [place] [address] Please follow-up at the ID clinic: Dr. Sutherland 06/20 @ 9:30 AM Bigg ESTRADA, [facility], [address] [place] [address] * Gait instability Left leg weakness Assessment [...] the last 1 year. MRI spine demonstrating m ultilevel multifactorial degenerative changes most pronounced at C5-C6 and C6-C7 levels where thereis up to moderate to severe left neural foraminal narrowing and mild spinal canal stenosis, howeverthere is no significant neural foraminal or spinal canal stenosis at the thoracic levels and there is no abnormal signal or postcontrast enhancement through the spinal cord. The degenerative changes s een on imaging are not felt to be consistent with the patient's clinical symptoms. Neurology consulted, feeling that lower extremity weakness on exam is more likely secondary to suprapubic pain, and with encouragement weakness was slightly better prior to previous exams. They do agree with plan forMRI pelvis and MRI brain although have low suspicion for new septic emboli. Patient had TTE with bubble study not demonstrating any vegetation. MRI brain with with and without contrast was performed without any acute intracranial abnormality. Patient's folate and B12 levels within normal limits. 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 W/up: MRI pelvis: several intramuscular abscesses and concern for osteo around pubic symphysis Myositis panel: pending Serum paraneoplastic panel: pending Autoimmune w/up: AMADOU: negative RF: <10 negative SM (raymond): <1.0 negative Anti-dsDNA: negative ROLLER STAKER: negative C3: elevated C4: negative ESR, CRP: elevated Metabolic testing: Aldolase: 4.7 nl VitD: 17 low LDH: 147 [ ] F/up myositis panel, serum paraneoplastic panel Pelvic abscess in female Osteomyelitis of pelvis (CMS/HCC) (HCC) Streptococcal bacteremia Assessment & Plan Recently been [...] q3h PRN for moderate-severe pain - Senna serafin nightly - Miralax serafin daily - Bisacodyl suppository PRN ID DC [...] Dr Quarles Outpatient ID fellow/DEBBIE: Dr Koko WILSON[address] [place] [id number] Please follow-up at the ID clinic: Dr. Sutherland 06/20 @ 9:30 AM eitan [facility], [facility], [address] [place] [address] Thrombocytosis Assessment & Plan Patient was significant [...] deficiency anemia. Given IV venofer x4d 06/05-06/08. * Plan of Care - Gregory Harris, PT - 06/08/2024 3:03 PM EST Images from the original note were not included. Problem: Adult Inpatient Plan of Care Goal: Plan of Care Review Flowsheets (Taken 06/08/2024 9954) Plan of Care Reviewed With: patient Plan of Care Summary: PT treatment complete. Patient continues to make progress toward goals. Patient able to trial steps today and was educated extensively on energy conservation, activity pacing and slowly building tolerance to increased mobility. Patient progressing to SBA with RW for most OOB mobility. Patient would benefit from inpatient facility with daily intensive therapies to focus on building activity tolerance, pain management strategies, pelvic health education / exercises as available, balance / weaning to LRAD, stair training and overall maximizing patient independence for safe dc home. Acute PT will continue to follow. Physical Therapy Physical Therapy Treatment Note Patient Name: Dorothy Vázquez Treatment Received On : 06/08/2024 Clinical Impression Criteria for Skilled Therapeutic Interventions Met: yes, treatment indicated Rehab Potential: good, to achieve stated therapy goals Therapy Frequency: 5 times/wk PT Anticipated Discharge Disposition: inpatient facility PT - OK to Discharge ?: Yes Plan of Care Review Plan of Care Reviewed With: patient Patient's response to therapy: Good, tolerated well Vitals All were stable / WFL Patient Active Problem List Diagnosis Hematuria Pelvic abscess in female Gait instability Left leg weakness Thrombocytosis Anemia Pulmonary nodules Hyperlipidemia Anxiety Osteomyelitis of pelvis (CMS/HCC) (HCC) Streptococcal bacteremia Past Medical History: Diagnosis Date Anxiety Depression High cholesterol Lung nodule s/p resection Syncope Past Surgical History: Procedure Laterality Date LUNG SEGMENTECTOMY 11/15/2022 MGB resection of a spiculated lung lesion; path is neg for malignancy Treatment: Default Flowsheet Data (Last 12 Hours) Adult PT Focused Evaluation/Treatment Row Name 06/08/24 0483 General Information Patient Profile Review yes General Observations of Patient Patient found by this PT sitting on toilet, patient was agreeable to PT. Left at end of session in bed with call button and all needs within reach. Precautions/Restrictions fall;safety Row Name 06/08/24 1503 Editor Dictionary Services Editor Dictionary Needed No [facility] Name 06/08/24 1503 Cognitive Assessment/Intervention Attention (Cognitive) WNL/WFL Behavior/Mood Observations (Cognitive) WNL/WFL Follows Commands/Answers Questions (Cognitive) 100% of the time Personal Safety (Cognitive) WNL/WFL Row Name 06/08/24 1503 Pain Scale Pain Scale Pain Scale: FACES Pre/Post-Treatment (Group) Row Name 06/08/24 1503 Pain Scale: FACES Treatment Pain: Pre Treatment (FACES Scale) 2-->hurts little bit Pain: During Treatment (FACES Scale) 4-->hurts little more Pain: Post Treatment (FACES Scale) 4-->hurts little more Pain: Comment (FACES Scale) pelvic pain, patient reports improved from this morning. States she wasa little sore after walking with PT yesterday but overall was tolerable. Most pain present this AM [facility] Name 06/08/24 1503 Static Sitting Balance Static Sitting Position sitting, edge of bed;sitting, toilet/commode Static Sitting Assistance Independent [facility] Name 06/08/24 1503 Dynamic Sitting Balance Dynamic Sitting Position sitting, edge of bed;sitting, toilet/commode Dynamic Sitting Assistance Independent [facility] Name 06/08/24 1503 Static Standing Balance Static Standing Assistance Supervision Static Standing Assistive Devices walker, rolling Row Name 06/08/24 1503 Dynamic Standing Balance Dynamic Standing Assistance Supervision Dynamic Standing Assistive Devices walker,rolling Row Name 06/08/24 1503 Bed Mobility Assessment/Treatment Assistive Device (Bed Mobility) hospital bed Tul-[id number]-Tyxrrd [place] (Bed Mobility) supervision required Comment (Bed Mobility) cued for technique to reduce pelvic pain Row Name 06/08/24 1503 Transfer Assessment/Treatment Sit-Stand [place] level (Transfers) supervision required Stand-Sit [place] level(Transfers) supervision required Kla-Nqjbv-Ywf Assistive Device (Transfers) walker, rolling Comment (Transfers) cues for sequencing Row Name 06/08/24 1503 Gait Assessment/Treatment [place] (Gait) supervision required Assistive Device (Gait) walker, rolling Distance in Feet (Gait) 100 ft Comment (Gait) reciprocal gait pattern, decreased gait speed and rory, mild antalgic pattern with significant reliance on RW Row Name 06/08/24 1503 Stairs Assessment/Treatment Number of Stairs (Stairs) 5 trials of portable step Handrail Location (Stairs) both sides 3x trials with RW, 2x trial with R HR then L HR [place] (Stairs) supervision required Assistive Device (Stairs) handrail;walker, rolling Technique (Stairs) [id number]-[id number] (ascending);[id number] (descending) Comment (Stairs) cues for sequencing and technique Row Name 06/08/24 1503 IP AM-PAC Basic Mobility '6 Clicks'(With Stairs) Turning in Bed Without Bedrails 3 Lying on Back to Sitting on Edge of Flat Bed 3 Moving Bed to Chair 3 Standing Up from Chair 3 Walk in Room 3 Climbs 3-5 Steps 3 IP Mobility Raw Score 18 CMS 0-100% Score 46.58 % CMS G Code Modifier:Current status (G8978) CK Standardized T-Scale Score 43.63 Row Name 06/08/24 1503 Clinical Impression Criteria for Skilled Therapeutic Interventions Met yes;treatment indicated Rehab Potential good, to achieve stated therapy goals Therapy Frequency 5 times/wk PT Anticipated Discharge Disposition inpatient facility PT - OK to Discharge ? Yes Row Name 06/08/24 1503 Plan of Care Review Plan of Care Reviewed With patient Row Name 06/08/24 1503 PT Eval/ Treat- Additional Details Document Type Therapy treatment note PT Treatment Received On 06/08/24 Patient Effort good Symptoms Noted During/After Treatment increased pain;fatigue PT Goal Summary (all recorded) PT Rehab Goal Summary Row Name 06/05/24 1350 Physical Therapy Goals Bed Mobility Goal Selection (PT) bed mobility, PT goal 1 Transfer Goal Selection (PT) transfer, PT goal 1 Gait Training Goal Selection (PT) gait training, PT goal 1 Stairs Goal Selection (PT) stairs, PT goal 1 Row Name 06/05/24 1350 Bed Mobility Goal 1 (PT) Activity (Bed Mobility Goal 1, PT) bed mobility activities, all [place] Level/Cues Needed (Bed Mobility Goal 1, PT) supervision required Assitive Devices (Bed Mobility Goal 1, PT) hospital bed;bed rails Time Frame (Bed Mobility Goal 1, PT) 10 days Row Name 06/05/24 1350 Transfer Goal 1 (PT) Activity (Transfer Goal 1, PT) transfers, all [place] Level/Cues Needed (Transfer Goal 1, PT) supervision required Assitive Devices (Transfer Goal 1, PT) -- LRAD Time Frame (Transfer Goal 1, PT) 10 days Row Name 06/05/24 1350 Gait Training Goal 1 (PT) Activity (Gait Training Goal 1, PT) gait (walking locomotion) [place] Level (Gait Training Goal 1, PT) supervision required Assistive Devices (Gait Training Goal 1, PT) walker, rolling Distance (Gait Goal 1, PT) 25 ft Time Frame (Gait Training Goal 1, PT) 10 days Row Name 06/05/24 1350 Stairs Goal 1 (PT) Activity (Stairs Goal 1, PT) ascending stairs;descending stairs;using handrail, left;using handrail, right [place] Level/Cues Needed (Stairs Goal 1, PT) contact guard assist Assistive Devices (Stairs Goal 1, PT) handrail Number of Stairs (Stairs Goal 1, PT) 5 Time Frame (Stairs Goal 1, PT) 10 days Row Name 06/05/24 1350 Corporate Safety Coordinator Goal (PT) Statement (Mcc Goal, PT) Patient will perform all household mobility without AD or LRAD [place] Level (Mcc Goal, PT) independent Time Frame (Mcc Goal, PT) 2 months Gregory Harris PT Licensure: KAILASH AMADO: [id number] * Plan of Care - Екатерина Zamora OT - 06/08/2024 9:04 AM EST Images from the original note were not included. Occupational Therapy Problem: Adult Inpatient Plan of Care Goal: Plan of Care Review Flowsheets (Taken 06/08/2024 0903) Plan of Care Reviewed With: patient Plan of Care Summary: OT initial evaluation complete. Patient participating in ADLs and functional mobility below baseline level. Patient reporting 7/10 pain in bilateral groin. Recommend patient d/associate director of development an inpatient facility to further receive OT intervention when medically cleared. OT to follow. Occupational Therapy Initial Assessment Patient Name: Dorothy Issa Stgermain Date of Evaluation: 06/08/2024 Default Flowsheet Data (Last 12 Hours) OT Plan and Recommendation Row Name 06/08/24 0846 Clinical Impression Patient/Family Goals Statement I just want to be able to do everything on my own Criteria for Skilled Therapeutic Interventions Met yes;treatment indicated Impairments Found (describe specific impairments) gait, locomotion, and balance;pain Rehab Potential good, to achieve stated therapy goals Therapy Frequency 5 times/wk OT Anticipated Discharge Disposition inpatient facility OT - OK to Discharge ? Yes Plan of Care Review Plan of Care Reviewed With: patient Occupational Therapy Evaluation complexity level was based on the following elements: occupational profile, medical and therapy history of the patient, assessment and identification of performance deficits and complexity of clinical decision making as documented in the EMR in accordance with CMS CPT code standards. Level of complexity of evaluation : Moderate Comments: Total time spent with patient = 13 minutes HPI: 63 years old female, past medical history of MDD, memory loss and pelvic DVT/abscess recently discharged from [facility] after being treated for PE, pelvic DVT and intra-abdominal abscess with IR drainage has returned to the hospital complaining of difficulty getting out of the bed and hematuria. Per records, patient presented to [facility] about 10 days ago with severe pelvic pain, imaging and studies at that time showed 4 cm pelvic abscess and DVT and pulmonary emboli. Blood culture later came back positive for strep intermedius. Patient was able to start ambulating slightly and therefore got discharged home with recommendations for home PT. After going home she notices she cannot get out of the bed and now has hematuria and therefore came back to the hospital. Seen by urology in the ED and after evaluation they decided against any active intervention and they recommended patientcan resume taking Eliquis. On the other hand [...] neurology, no specific reason could be found. Hospitalization complicated by hypotension, pending MRI Brain which was delayed due to patient pain MRI C/T/L: Multilevel multifactorial degenerative changes most pronounced at C5- C6 and C6-C7 levelswhere there is up to moderate to severe left neural foraminal narrowing and mild spinal canal stenosis. CT Abdomen: 1. Segmental pulmonary embolism of LLL 2. Nonocclusive DVT in the right external iliac vein and likely within the right superficial femoral vein. 3. Small residual intramuscular collection within the left adductor dian/obturator externus muscle, consistent with residual or recurrent abscess. OT consulted 06/07 Up as tolerated Patient Active Problem List Diagnosis Hematuria Pelvic abscess in female Gait instability Left leg weakness Thrombocytosis Anemia Pulmonary nodules Hyperlipidemia Anxiety Osteomyelitis of pelvis (CMS/HCC) (HCC) Streptococcal bacteremia Past Medical History: Diagnosis Date Anxiety Depression High cholesterol Lung nodule s/p resection Syncope Past Surgical History: Procedure Laterality Date LUNG SEGMENTECTOMY 11/15/2022 MGB resection of a spiculated lung lesion; path is neg for malignancy Vitals Assessment: OT EVAL/TREAT (Last 12 Hours) Adult OT Eval/Treat Row Name 06/08/24 0846 General Information Patient Profile Review yes General Observations of Patient patient received and left semi supine, call le in reach, all needs met Precautions/Restrictions fall;safety Row Name 06/08/24 0846 Editor Dictionary Services Editor Dictionary Needed No Row Name 06/08/24 0846 Living Environment Lives With spouse spouse works Living Arrangements house Home Accessibility bath not on first floor;bed and bath are on diferent floors;stairs with 1 railing present;stairs with 2 railings present;stairs to enter home;stairs within home;tub/shower is not walk in Number of Stairs to Enter Home 6 Number of Stairs Within Home 1 FOS to full bathroom and other bedroomss Stair Railings at Home inside, present at both sides;outside, present on right side Number of Floors 2 Home Care Services No Transportation Available family or friend will provide Living Environment Comment patients bedroom on 1st floor, bathroom on seconds floor. 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 Row Name 06/08/24 0846 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 Meal Plan/Prep primary Shopping primary Pig Breeder primary Dependent Care no responsibility Money Management primary Medical/Medication Management primary Transportation primary Row Name 06/08/24 0846 Hearing Hearing Status WFL Row Name 06/08/24 0846 Vision Assessment/Intervention Visual Impairment/Limitations WFL;corrective lenses for reading Row Name 06/08/24 0846 Cognitive Assessment/Intervention Attention (Cognitive) WNL/WFL Behavior/Mood Observations (Cognitive) WNL/WFL;alert;cooperative Follows Commands/Answers Questions (Cognitive) able to follow single-step instructions;able to follow multi-step instructions;100% of the time Personal Safety (Cognitive) WNL/WFL;fully aware of deficits Pragmatics (Cognitive) WNL/WFL Problem Solving (Cognitive) WNL/WFL Short/Corporate Safety Coordinator Memory (Cognitive) short term memory intact;senior care memory intact Orientation Status (Cognitive) oriented x 4 Row Name 06/08/24 0846 Safety Issues, Functional Mobility Impairments Affecting Function (Mobility) pain Row Name 06/08/24 0846 Pain Scale Pain Scale Pain Scale: Numbers Pre/Post-Treatment (Group) Row Name 06/08/24 0846 Pain Scale: Numbers Treatment Pain: Pre Treatment (Numbers Scale) 7/10 Pain: During Treatment (Numbers Scale) 7/10 Pain: Post Treatment (Numbers Scale) 7/10 Pain Location - Side (Numbers Scale) Bilateral Pain Location - Body (Numbers Scale) -- groin Pain Descriptors (Numbers Scale) Sore Pain Interventions (Numbers Scale) care clustered;diversional activity provided;rest Pain: Comment (Numbers Scale) groin pain bilaterally from previous participation in ADLs Row Name 06/08/24 0846 General UE Assessment Upper Extremity: Range of Motion LUE ROM was WFL;RUE ROM was WFL Row Name 06/08/24 0846 MMT: Upper Extremity Upper Extremity: Manual Muscle Testing left UE strength is WFL;right UE strength is WFL Row Name 06/08/24 0846 Sensory Assessment (Somatosensory) Sensory Assessment (Somatosensory) UE sensation intact Row Name 06/08/24 0846 Bed Mobility Assessment/Treatment Assistive Device (Bed Mobility) hospital bed b/l ASPARAGUS BUNCHER from therapist Yliwfa-ym-Bur [place] (Bed Mobility) moderate assist (50% patient effort) Gmi-ao-Iqwaam [place] (Bed Mobility) supervision required Comment (Bed Mobility) required b/l ASPARAGUS BUNCHER to complete supine to sit Row Name 06/08/24 0846 Static Sitting Balance Static Sitting Position sitting, edge of bed Static Sitting Assistance Independent Static Sitting Trunk Support Bilateral Upper Extremities;Bilateral Lower Extremities Row Name 06/08/24 0846 Dynamic Sitting Balance Dynamic Sitting Position sitting, edge of bed Dynamic Sitting Assistance Supervision Dynamic Sitting Trunk Support Bilateral Upper Extremities;Bilateral Lower Extremities Dynamic Sitting Condition Scooting forward;Scooting backwards;Reach up;Reach down;Reach forward Row Name 06/08/24 0846 Static Standing Balance Static Standing Position supported Static Standing Assistance Contact guard Static Standing Extremity Support Bilateral upper extremities;Bilateral lower extremities Static Standing Assistive Devices gait belt;walker, rolling Row Name 06/08/24 0846 Dynamic Standing Balance Dynamic Standing Position supported Dynamic Standing Assistance Contact guard Dynamic Standing Extremity Support Bilateral upper extremities;Bilateral lower extremities Dynamic Standing Assistive Devices gait belt;walker,rolling Row Name 06/08/24 0846 Transfer Assessment/Treatment Sit-Stand [place] level (Transfers) contact guard assist Stand-Sit [place] level(Transfers) contact guard assist Enu-Frazl-Yjg Assistive Device (Transfers) gait belt;walker, rolling Comment (Transfers) cues for correct hand placement and use of RW Row Name 06/08/24 0846 Gait Assessment/Treatment [place] (Gait) contact guard assist Assistive Device (Gait) gait belt;walker, rolling Gait Deviations rory, decreased;step length, decreased Comment (Gait) patient with decreased rory. required cues for use of RW Row Name 06/08/24 0846 Self-Feeding Assessment/Training Position (Self-Feeding) sitting [place] Level (Self-Feeding) set up required [facility] Name 06/08/24 0846 Grooming Assessment/Training Position (Grooming) supported standing [place] Level (Grooming) contact guard assist Comment (Grooming) completed sink side hand washing Row Name 06/08/24 0846 Bathing Assessment/Training Position (Bathing) supported standing [place] Level (Bathing) minimum assist (75% patient effort) Row Name 06/08/24 0846 Upper Body Dressing Assessment/Training Position (UB Dressing) sitting [place] Level (UB Dressing) supervision required Comment (UB Dressing) able to don sweathsirt while seated EOB Row Name 06/08/24 0846 Lower Body Dressing Assessment/Training Position (LB Dressing) sitting;supported standing [place] Level (LB Dressing) minimum assist (75% patient effort) Row Name 06/08/24 0846 Toileting Assessment/Training Position (Toileting) sitting [place] Level (Toileting) contact guard assist Row [facility] 06/08/24 0846 IP AM-PAC Daily Activity '6 Clicks' Putting On/Off Lower Body Clothes 3 Bathing 3 Toileting 3 Putting On/Off Upper Body Clothes 3 Personal Grooming 3 Eating Meals 4 Daily Activity Raw Score 19 CMS 0-100% SCORE 42.8 CMS G-Code Modifier:Current status (G 8967) CK Scale Score 40.22 Row Name 06/08/24 0846 Clinical Impression Patient/Family Goals Statement I just want to be able to do everything on my own Criteria for Skilled Therapeutic Interventions Met yes;treatment indicated Impairments Found (describe specific impairments) gait, locomotion, and balance;pain Rehab Potential good, to achieve stated therapy goals Therapy Frequency 5 times/wk OT Anticipated Discharge Disposition inpatient facility OT - OK to Discharge ? Yes Row Name 06/08/24 0846 Planned Therapy Interventions Planned Therapy Interventions ADL retraining;IADL retraining;balance training;bed mobility training;transfer training Row Name 06/08/24 0846 Plan of Care Review Plan of Care Reviewed With patient Row Name 06/08/2446 Rehab Eval/Treat-Additional Details Document Type Initial Evaluation OT Date of Initial Eval/Re-Eval 06/08/24 OT Ordered Same Day as MEGHAN? Yes Patient Effort good Symptoms Noted During/After Treatment increased pain;fatigue OT Goal Summary (all recorded) OT Goal Summary [facility] Name 06/08/24 09 Occupational Therapy Goals Bed Mobility Goal Selection (OT) bed mobility, OT goal 1 Transfer Goal Selection (OT) transfer, OT goal 1 Grooming Goal Selection (OT) grooming, OT goal 1 Dressing Goal Selection (OT) dressing, OT goal 1 Toileting Goal Selection (OT) toileting, OT goal 1 Row Name 06/08/24 0900 Bed Mobility Goal 1 (OT) Activity (Bed Mobility Goal 1, OT) sit to supine/supine to sit;scooting [place] Level (Bed Mobility Goal 1, OT) contact guard assist Time Frame (Bed Mobility Goal 1, OT) 10 days Row Name 06/08/24 0900 Transfer Goal 1 (OT) Activity (Transfer Goal 1, OT) qvt-wx-cgkjx/zjase-gz-vtz;rfp-ij-fwfmb/radin-ji-hwb;toilet transfer [place] Level (Transfer Goal 1, OT) modified independence Assitive Devices (Transfer Goal 1, OT) walker, rolling Time Frame (Transfer Goal 1, OT) 10 days Row Name 06/08/24 0900 Grooming Goal 1 (OT) Activity (Grooming Goal 1, OT) hair care;oral care;wash face, hands [place] Level (Grooming Goal 1, OT) modified independence Time Frame (Grooming Goal 1, OT) 10 days Row Name 06/08/24 09 Dressing Goal 1 (OT) Activity (Dressing Goal 1, OT) lower body dressing [place] Level (Dressing Goal 1, OT) supervision required Time Frame (Dressing Goal 1, OT) 10 days Row Name 06/08/24 09 Toileting Goal 1 (OT) Activity (Toileting Goal 1, OT) toileting skills, all [place] Level (Toileting Goal 1, OT) modified independence Assistive Devices (Toileting Goal 1, OT) walker, rolling Time Frame (Toileting Goal 1, OT) 10 days Row Name 06/08/24 09 Pain Goal (OT) Pain Score (Pain Score, OT) 3 Activity (Pain Goal, OT) during all tasks in daily routine;during ADLs;during mobility tasks;duringtransfers Time Frame (Pain Goal, OT) 10 days Row Name 06/08/24 09 Corporate Safety Coordinator Goal (OT) Statement (Mcc Goal, OT) participate in ADLs and IADLs [place] Level (Mcc Goal, OT) independent Time Frame (Corporate Safety Coordinator Goal, OT) 6 weeks Екатерина Zamora OT Licensure: [place], [place]: [id number] * Assessment & Plan Note - Luann Cuellar MD - 06/08/2024 8:40 AM ESTAssociated Problem(s): Streptococcal bacteremia * Assessment & Plan Note - Luann Cuellar MD - 06/08/2024 8:40 AM ESTAssociated Problem(s): Osteomyelitis of pelvis (CMS/HCC) (HCC) * Assessment & Plan Note - Luann Cuellar MD - 06/08/2024 8:40 AM ESTAssociated Problem(s): Anxiety -Continue home clonazepam 0.5 mg 3 times daily -Continue home lamotrigine 200 mg twice daily -Continue home duloxetine 120 mg daily -Continue home Adderall 30 mg twice daily as needed * Assessment & Plan Note - Luann Cuellar MD - 06/08/2024 8:40 AM ESTAssociated Problem(s): Hyperlipidemia -Continue home atorvastatin 40 mg daily * Assessment & Plan Note - Luann Cuellar MD - 06/08/2024 8:40 AM ESTAssociated Problem(s): Pulmonary nodules CT chest performed and significant for biapical [...] checks. HIV Ab negative. -Infectious disease consulted * Assessment & Plan Note - Luann Cuellar MD - 06/08/2024 8:40 AM ESTAssociated Problem(s): Anemia Patient with slight but stable anemia, Hgb around 10. Iron studies significant for ferritin of 451,iron concentration 26, iron binding capacity 240, transferrin 192, percent saturation of 11%. Iron studies suggestive of mixed chronic inflammatory and iron deficiency anemia. -Hematology consulted -Venofer IV 5 days, until 06/09 * Assessment & Plan Note - Luann Cuellar MD - 06/08/2024 8:40 AM ESTAssociated Problem(s): Thrombocytosis Patient was significant acute thrombocytosis on labs, [...] WNL. -Hematology consulted -NGS MPN panel, pending * Assessment & Plan Note - Luann Cuellar MD - 06/08/2024 8:40 AM ESTAssociated Problem(s): Left leg weakness See gait instability and patient summary * Assessment & Plan Note - Luann Cuellar MD - 06/08/2024 8:40 AM ESTAssociated Problem(s): Gait instability Patient is mainly brought to the hospital [...] the last 1 year. MRI spine demonstrating m ultilevel multifactorial degenerative changes most pronounced at C5-C6 and C6-C7 levels where thereis up to moderate to severe left neural foraminal narrowing and mild spinal canal stenosis, howeverthere is no significant neural foraminal or spinal canal stenosis at the thoracic levels and there is no abnormal signal or postcontrast enhancement through the spinal cord. The degenerative changes s een on imaging are not felt to be consistent with the patient's clinical symptoms. Neurology consulted, feeling that lower extremity weakness on exam is more likely secondary to suprapubic pain, and with encouragement weakness was slightly better prior to previous exams. They do agree with plan forMRI pelvis and MRI brain although have low suspicion for new septic emboli. Patient had TTE with bubble study not demonstrating any vegetation. MRI brain with with and without contrast was performed without any acute intracranial abnormality. Patient's folate and B12 levels within normal limits. 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 W/up: MRI pelvis: several intramuscular abscesses and concern for osteo around pubic symphysis Myositis panel: pending Serum paraneoplastic panel: pending Autoimmune w/up: AMADOU: negative RF: <10 negative SM (raymond): <1.0 negative Anti-dsDNA: negative ROLLER STAKER: negative C3: elevated C4: negative ESR, CRP: elevated Metabolic testing: Aldolase: 4.7 nl VitD: 17 low LDH: 147 - F/up w/up as above - PT consulted, rec'd inpt facility * Assessment & Plan Note - Luann Cuellar MD - 06/08/2024 8:40 AM ESTAssociated Problem(s): Pelvic abscess in female Recently been diagnosed with pelvic abscess, 4 [...] q3h PRN for moderate-severe pain - Senna serafin nightly - Miralax serafin daily - Bisacodyl suppository PRN ID [id number] [...] [facility] fellow/DEBBIE: [place] [address] Please follow-up at the ID clinic: Dr. Suthelrand 06/20 @ 9:30 AM [place] [address], [address] * Assessment & Plan Note - Luann Cuellar MD - 06/08/2024 8:40 AM ESTAssociated Problem(s): Hematuria Recently diagnosed with PE due to pulmonary [...] continue the Eliquis - Continue close monitoring. * Plan of Care - Justine Abreu RN - 06/08/2024 2:17 AM EST Alert and oriented , presented with lower leg weakness, she is out of bed with awalker to the bathroom , takes pills whole on tylenol and oxy for pain , on iv abx , has R.U.E picc line ,site clean and intact , safety precautions maintained hourly rounding done. * Plan of Care - Zoe Pires RN - 06/07/2024 10:09 PM EST Plan of Care Summary: 1L PICC placed at bsd this shift. Midline removed. Iv abx continued. Pain managed, out of bed to bathroom with walker. Safety maintained. * Assessment & Plan Note - Tim Rainey MD - 06/07/2024 5:47 PM EST Associated Problem(s): Anemia Patient with slight but stable anemia, Hgb around 10. Iron studies significant for ferritin of 451,iron concentration 26, iron binding capacity 240, transferrin 192, percent saturation of 11%. Iron studies suggestive of mixed chronic inflammatory and iron deficiency anemia. -Hematology consulted -Venofer IV 5 days, until 06/09 * Assessment & Plan Note - Tim Rainey MD - 06/07/2024 5:47 PM EST Associated Problem(s): Gait instability Patient is mainly brought to the hospital [...] the last 1 year. MRI spine demonstrating m ultilevel multifactorial degenerative changes most pronounced at C5-C6 and C6-C7 levels where thereis up to moderate to severe left neural foraminal narrowing and mild spinal canal stenosis, howeverthere is no significant neural foraminal or spinal canal stenosis at the thoracic levels and there is no abnormal signal or postcontrast enhancement through the spinal cord. The degenerative changes s een on imaging are not felt to be consistent with the patient's clinical symptoms. Neurology consulted, feeling that lower extremity weakness on exam is more likely secondary to suprapubic pain, and with encouragement weakness was slightly better prior to previous exams. They do agree with plan forMRI pelvis and MRI brain although have low suspicion for new septic emboli. Patient had TTE with bubble study not demonstrating any vegetation. MRI brain with with and without contrast was performed without any acute intracranial abnormality. Patient's folate and B12 levels within normal limits. 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 - MRI pelvis, several intramuscular abscesses and concern for osteo around pubic symphysis - Myositis panel, pending - Serum paraneoplastic panel, pending - Further labs for autoimmune workup including: AMADOU, RF, raymond (SM), pending - Anti-dsDNA, negative - ROLLER STAKER, negative - C3, elevated - C4, negative - ESR, CRP, elevated - Further metabolic testing: aldolase, Vitamin D, Ca, LDH, pending * Assessment & Plan Note - Tim Rainey MD - 06/07/2024 5:47 PM EST Associated Problem(s): Pelvic abscess in female Recently been diagnosed with pelvic abscess, 4 [...] severe pain every 3 hours -Ortho consulted * Assessment & Plan Note - Tim Rainey MD - 06/07/2024 5:47 PM EST Associated Problem(s): Pulmonary nodules CT chest performed and significant for biapical [...] checks. -Infectious disease consulted -HIV antibodies, negative * Assessment & Plan Note - Tim Rainey MD - 06/07/2024 5:47 PM EST Associated Problem(s): Thrombocytosis Patient was significant acute thrombocytosis on labs, [...] antigen and factor 8 ristocetin cofactor, WNL * Plan of Care - Karla Bedoya RN - 06/07/2024 4:35 PM EST Case Management Continued Stay Review: Pertinent Clinical impacting hospitalization, level of care update, if indicated: Per chart review and MDR pt not med ready for DC. Pt cont with LE weakness. Awaiting ID recs. Unclear if pt will need IV abx for a long duration or if she can switch to PO. Therapy recs rehab , CM met with pt and got referrals placed. IRF following but they needed updated PT and OT notes. CM requested provider place OT orders. Awaiting notes. Discharge Planning: Discharge Barrier: Not medically clear. Discharge Plan: STR - [place] is following. CM will cont to follow. Choice list (with star ratings) provided / discussed, if indicated (Y or NA): yes * Consult to H&P - Agueda Dominguez MD - 06/07/2024 12:38 PM EST Orthopaedic Surgery Consult Note Reason for Consultation: [...] obturator intramuscular abscess which was drained at [facility] on 05/29. It grew Staph intermedius. She [...] Medical History: Past Medical History: Diagnosis Date Anxiety Depression High cholesterol Lung nodule s/p resection Syncope Past Surgical History: Past Surgical History: Procedure Laterality Date LUNG SEGMENTECTOMY 11/15/2022 MGB resection of a spiculated lung lesion; path is neg for malignancy Medications: Current Outpatient Medications Medication Instructions apixaban (ELIQUIS) 5 mg, Every 12 hours scheduled atorvastatin (LIPITOR) 40 mg tablet TAKE ONE TABLET (40 MG TOTAL) BY MOUTH 1 (ONE) TIME EACH DAY FOR CHOLESTEROL clonazePAM (KLONOPIN) 0.5 mg, oral, 3 times daily dextroamphetamine-amphetamine (ADDERALL) 30 mg tablet 1 tablet, oral, [address] (CYMBALTA) 120 mg, oral, Daily lamoTRIgine (LAMICTAL) 200 mg, oral, 2 times daily traZODone (DESYREL) 150 mg, Nightly Allergies: Allergies Allergen Reactions Ampicillin Rash Cephalexin Rash Penicillin G Potassium Rash Social History: Other Drugs: Denies drug use Pre-injury ambulatory status: Community Contact: Extended Emergency Contact Information Primary Emergency Contact: JeremybereazeemPatrick Mobile Relation: Spouse Secondary Emergency Contact: Esme [...] obturator intramuscular abscess that was drained at [facility] on 06/19. She was just charged on [...] biopsy Agueda Dominguez MD PGY-2 Orthopedic Surgery Cosigned by Immanuel Ulloa MD at 06/07/2024 5:48 PM EST Associated attestation - Immanuel Ulloa MD - 06/07/2024 5:48 PM EST I reviewed the case with the resident but did not see the patient. I agree with the assessment and plan as documented in the resident's note. * Plan of Care - Gregory Harris, PT - 06/07/2024 11:29 AM EST Images from the original note were not included. Problem: Adult Inpatient Plan of Care Goal: Plan of Care Review Flowsheets (Taken 06/07/2024 1234) Plan of Care Reviewed With: patient Plan of Care Summary: PT treatment session complete. Patient had improved tolerance to PT today andwas able to ambulate 50 ft x 2 with RW and CGA. She remains with pelvic pain but is able to take steps now and ambulate in hallway with assistance. Patient remains with impaired balance, activity tolerance, and strength from her baseline. Would benefit from continued skilled PT to maximize her functional independence. Would recommend discharge to inpatient facility to have ongoing skilled PT and adequate assistance for her mobility and self care needs. Acute PT will continue to follow. Physical Therapy Physical Therapy Treatment Note Patient Name: Dorothy Vázquez Treatment Received On : 06/07/2024 Clinical Impression Criteria for Skilled Therapeutic Interventions Met: yes, treatment indicated Rehab Potential: good, to achieve stated therapy goals Therapy Frequency: 5 times/wk PT Anticipated Discharge Disposition: inpatient facility PT - OK to Discharge ?: Yes Plan of Care Review Plan of Care Reviewed With: patient Patient's response to therapy: Good Vitals Stable / WFL Patient Active Problem List Diagnosis Hematuria Pelvic abscess in female Gait instability Left leg weakness Thrombocytosis Anemia Pulmonary nodules Hyperlipidemia Anxiety Past Medical History: Diagnosis Date Anxiety Depression High cholesterol Lung nodule s/p resection Syncope Past Surgical History: Procedure Laterality Date LUNG SEGMENTECTOMY 11/15/2022 MGB resection of a spiculated lung lesion; path is neg for malignancy Treatment: Default Flowsheet Data (Last 12 Hours) Adult PT Focused Evaluation/Treatment Row Name 06/07/24 1129 General Information Patient Profile Review yes General Observations of Patient Patient presented to PT and left by PT semi- supine in bed in position of optimal comfort with call button and all needs within reach. Patient agreeable to PT. Precautions/Restrictions fall;safety Row Name 06/07/24 1129 Editor Dictionary Services Editor Dictionary Needed No Row Name 06/07/24 1129 Cognitive Assessment/Intervention Attention (Cognitive) WNL/WFL Behavior/Mood Observations (Cognitive) WNL/WFL Follows Commands/Answers Questions (Cognitive) 100% of the time Personal Safety (Cognitive) WNL/WFL Row Name 06/07/24 1129 Pain Scale Pain Scale Pain Scale: Numbers Pre/Post-Treatment (Group) Row Name 06/07/24 1129 Pain Scale: Numbers Treatment Pain: Pre Treatment (Numbers Scale) 5/10 Pain: During Treatment (Numbers Scale) 5/10 Pain: Post Treatment (Numbers Scale) 5/10 Pain: Comment (Numbers Scale) B pelvic pain, had been medicated for pain Row Name 06/07/24 1129 Static Sitting Balance Static Sitting Position sitting, edge of bed Static Sitting Assistance Independent [facility] Name 06/07/24 1129 Dynamic Sitting Balance Dynamic Sitting Position sitting, edge of bed Dynamic Sitting Assistance Supervision Row Name 06/07/24 1129 Static Standing Balance Static Standing Assistance Contact guard Static Standing Extremity Support Bilateral upper extremities;Bilateral lower extremities Static Standing Assistive Devices walker, rolling Row Name 06/07/24 1129 Dynamic Standing Balance Dynamic Standing Assistance Contact guard Dynamic Standing Extremity Support Bilateral upper extremities;Bilateral lower extremities Dynamic Standing Assistive Devices walker,rolling Row Name 06/07/24 1129 Bed Mobility Assessment/Treatment Assistive Device (Bed Mobility) hospital bed;bedrail;adjustable bed Hknsnd-kx-Ikc [place] (Bed Mobility) moderate assist (50% patient effort) Dzh-ll-Vjzdwn [place] (Bed Mobility) supervision required Comment (Bed Mobility) required trunk assist for OOB, cues for hand placement, weight shifting, andsequencing Row Name 06/07/24 1129 Transfer Assessment/Treatment Sit-Stand [place] level (Transfers) contact guard assist Stand-Sit [place] level(Transfers) contact guard assist Pgl-Sqryk-Hdn Assistive Device (Transfers) walker, rolling Comment (Transfers) cues for hand placement and sequencing. adjusted RW to appropriate height for patient Row Name 06/07/24 1129 Gait Assessment/Treatment [place] (Gait) contact guard assist Assistive Device (Gait) walker, rolling Distance in Feet (Gait) 50 ft x 2 with 1 standing rest break Comment (Gait) slow gait speed and rory, improved but still impaired step clearance Row Name 06/07/24 1129 Stairs Assessment/Treatment Comment (Stairs) deferred today to assess patient pain response to increased ambulation activity. If post-PT mobility today is tolerated well, could try stairs next session (patient apprehensive due to being in severe pain and being unable to move the last time she did stairs) Row Name 06/07/24 1129 IP AM-PAC Basic Mobility '6 Clicks'(With Stairs) Turning in Bed Without Bedrails 3 Lying on Back to Sitting on Edge of Flat Bed 2 Moving Bed to Chair 3 Standing Up from Chair 3 Walk in Room 3 Climbs 3-5 Steps 1 IP Mobility Raw Score 15 CMS 0-100% Score 57.7 % CMS G Code Modifier:Current status (G8978) CK Standardized T-Scale Score 39.45 Row Name 06/07/24 1129 Clinical Impression Criteria for Skilled Therapeutic Interventions Met yes;treatment indicated Rehab Potential good, to achieve stated therapy goals Therapy Frequency 5 times/wk PT Anticipated Discharge Disposition inpatient facility PT - OK to Discharge ? Yes Row Name 06/07/24 1129 Plan of Care Review Plan of Care Reviewed With patient Row Name 06/07/24 1129 PT Eval/ Treat- Additional Details Document Type Therapy treatment note PT Treatment Received On 06/07/24 Patient Effort good Symptoms Noted During/After Treatment fatigue PT Goal Summary (all recorded) PT Rehab Goal Summary Row Name 06/05/24 1350 Physical Therapy Goals Bed Mobility Goal Selection (PT) bed mobility, PT goal 1 Transfer Goal Selection (PT) transfer, PT goal 1 Gait Training Goal Selection (PT) gait training, PT goal 1 Stairs Goal Selection (PT) stairs, PT goal 1 Row Name 06/05/24 1350 Bed Mobility Goal 1 (PT) Activity (Bed Mobility Goal 1, PT) bed mobility activities, all [place] Level/Cues Needed (Bed Mobility Goal 1, PT) supervision required Assitive Devices (Bed Mobility Goal 1, PT) hospital bed;bed rails Time Frame (Bed Mobility Goal 1, PT) 10 days Row Name 06/05/24 1350 Transfer Goal 1 (PT) Activity (Transfer Goal 1, PT) transfers, all [place] Level/Cues Needed (Transfer Goal 1, PT) supervision required Assitive Devices (Transfer Goal 1, PT) -- LRAD Time Frame (Transfer Goal 1, PT) 10 days Row Name 06/05/24 1350 Gait Training Goal 1 (PT) Activity (Gait Training Goal 1, PT) gait (walking locomotion) [place] Level (Gait Training Goal 1, PT) supervision required Assistive Devices (Gait Training Goal 1, PT) walker, rolling Distance (Gait Goal 1, PT) 25 ft Time Frame (Gait Training Goal 1, PT) 10 days Row Name 06/05/24 1350 Stairs Goal 1 (PT) Activity (Stairs Goal 1, PT) ascending stairs;descending stairs;using handrail, left;using handrail, right [place] Level/Cues Needed (Stairs Goal 1, PT) contact guard assist Assistive Devices (Stairs Goal 1, PT) handrail Number of Stairs (Stairs Goal 1, PT) 5 Time Frame (Stairs Goal 1, PT) 10 days Row Name 06/05/24 1350 Mcc Goal (PT) Statement (Mcc Goal, PT) Patient will perform all household mobility without AD or LRAD [place] Level (Corporate Safety Coordinator Goal, PT) independent Time Frame (Corporate Safety Coordinator Goal, PT) 2 months Gregory Harris, ANEUDY Licensure: KAILASH AMADO: [id number] * Plan of Care - Rama Collins, RD - 06/07/2024 9:05 AM EST NUTRITION NOTE Interventions / Recommendations: Regular diet as ordered Will arrange Ensure HP (variety) BID Obtain updated measured wt Nutrition Education: N/A Assessment: Patient seen today for initial assessment. Reason For Assessment: consult Past Medical History: Diagnosis Date Anxiety Depression High cholesterol Lung nodule s/p resection Syncope Past Surgical History: Procedure Laterality Date LUNG SEGMENTECTOMY 11/15/2022 MGB resection of a spiculated lung lesion; path is neg for malignancy Patient Summary 63 y.o./female presented w/ gait instability and hematuria. Recent admission for treatment of PE, pelvic DVT and intra-abdominal abscess w/ IR drainage. PMHx: MDD, memory loss, pelvic DVT/abscess Nutrition Assessment Chart reviewed, events noted. RD consulted for poor PO intake. Pt endorsed an okay appetite. Minimal PO intake documented during admission, decreasing over time. A typical day of eating MINI BACCARAT DEALER consistedof: B-protein shake; L-bowl of cereal or leftovers from night before; D-something light. Unable to complete NFPE as pt was trying to rest-interview ended after brief questioning. Pt denied recent wt changes, trouble chewing/swallowing and N/V/D. Endorsed some constipation, but feels she can go soon-last BM on 06/05. Currently on bowel regimen. No wt hx on file to review-tried to obtain updated wt but scale not zeroed. Will arrange ONS. RD will CTM. Current Orders Diet: Regular Supplements: None Intake: Avg 70% x 5 meals; 100% x 1 protein shake Food Allergies: NKFA NFPE: unable to assess Wt Readings from Last 50 Encounters: 06/07/24 68.2 kg (150 lb 5.7 oz) 12/07/18 61.2 kg (135 lb) Date/Time Weight Weight Method 06/07/24 0500 68.2 kg (150 lb 5.7 oz) -- 06/05/24 0643 68.5 kg (151 lb) -- 06/01/24 2212 68.5 kg (151 lb 0.2 oz) Estimated Results from last 24 hours Lab Units 06/07/24 0531 SODIUM mmol/L 140 POTASSIUM mmol/L 4.3 CHLORIDE mmol/L 102 CARBON DIOXIDE mmol/L 30 GLUCOSE mg/dL 100* BUN mg/dL 9 MAGNESIUM mg/dL 2.1 CR: 0.58 mg/dL FSB Pertinent Medications: apixaban, atorvastatin, docusate sodium, iron sucrose, senna Food and Drug Interactions: apixaban, atorvastatin-grapefruit GI: LBM 06/05 Skin: WDL Edema: None noted MST Score=0 Cultural/spiritism/ethnic preferences addressed as able. Nutrition Diagnosis: Predicted Inadequate Energy Intake related to Change in Taste and Appetite or Preference as evidenced by Clinical Notes. Status: new Goal 1: Adequate oral intake of at least 75% meals and supplements upon follow-up. Status: New BMI (Calculated): 25.42 BMI Assessment: BMI 25-29.9: overweight Weight Used For Calculations: 68.2 kg (150 lb 5.7 oz) Estimated Needs: Energy Calorie Requirements: 9262-8993 kcals/day (22-25 kcals/kg BW) Protein (gms/day): 68-82 g/day (1-1.2 g/kg BW) Fluid Requirements: 1 ml/kcal or per pt status Monitor/Evaluation: Food Intake: meet nutrition needs via PO intake Electrolyte/Renal Profile: WNL Glucose/Endocrine Profile: WNL Gastrointestinal Profile: Bowel regularity. No N, V, diarrhea, constipation Weight: Stable Nutrition-Focused Physical Findings: monitor for changes in skin integrity See flowsheets for additional information. Rama Collins RD, LDN [facility] : 1960 CSN: [id number] * Assessment & Plan Note - Tim Rainey MD - 06/07/2024 7:50 AM EST Associated Problem(s): Anxiety -Continue home clonazepam 0.5 mg 3 times daily -Continue home lamotrigine 200 mg twice daily -Continue home duloxetine 120 mg daily -Continue home Adderall 30 mg twice daily as needed * Assessment & Plan Note - Tim Rainey MD - 06/07/2024 7:50 AM EST Associated Problem(s): Left leg weakness See gait instability and patient summary * Assessment & Plan Note - Tim Rainey MD - 06/07/2024 7:50 AM EST Associated Problem(s): Hematuria Recently diagnosed with PE due to pulmonary [...] continue the Eliquis - Continue close monitoring. * Assessment & Plan Note - Tim Rainey MD - 06/07/2024 7:50 AM EST Associated Problem(s): Hyperlipidemia -Continue home atorvastatin 40 mg daily * Plan of Care - Keysha Orellana RN - 06/07/2024 4:29 AM EST Alert and oriented, some forgetfulness, able to make needs known. PRN APAP and oxycodone given for pain with + effects. OOB with walker and stand by assist to bathroom. Continues IV abx. Safety maintained. Plan of Care Reviewed With: patient * Plan of Care - Karla Bedoya RN - 06/06/2024 4:07 PM EST Case Management Continued Stay Review: Pertinent Clinical impacting hospitalization, level of care update, if indicated: Per chart review and MDR pt not med ready for DC. Pt cont with LE weakness and workup. Neuro is consulting. Awaiting ID recs. Unclear if pt will need IV abx for a long duration or if she can switch to PO. Therapy recs rehab. CM to meet with pt to get referrals placed. Discharge Planning: Discharge Barrier: Not medically clear. Discharge Plan: STR when bed has been offered. CM will cont to follow. Choice list (with star ratings) provided / discussed, if indicated (Y or NA): yes * Assessment & Plan Note - Tim Rainey MD - 06/06/2024 2:45 PM EST Associated Problem(s): Gait instability Patient is mainly brought to the hospital [...] the last 1 year. MRI spine demonstrating m ultilevel multifactorial degenerative changes most pronounced at C5-C6 and C6-C7 levels where thereis up to moderate to severe left neural foraminal narrowing and mild spinal canal stenosis, howeverthere is no significant neural foraminal or spinal canal stenosis at the thoracic levels and there is no abnormal signal or postcontrast enhancement through the spinal cord. The degenerative changes s een on imaging are not felt to be consistent with the patient's clinical symptoms. Neurology consulted, feeling that lower extremity weakness on exam is more likely secondary to suprapubic pain, and with encouragement weakness was slightly better prior to previous exams. They do agree with plan forMRI pelvis and MRI brain although have low suspicion for new septic emboli. Patient had TTE with bubble study not demonstrating any vegetation. MRI brain with with and without contrast was performed without any acute intracranial abnormality. Patient's folate and B12 levels within normal limits. 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 - MRI pelvis, several intramuscular abscesses and concern for osteo around pubic symphysis - Myositis panel, pending - Serum paraneoplastic panel, pending - Further labs for autoimmune workup including: AMADOU, RF, anti-dsDNA, raymond (SM), ROLLER STAKER, C3, C4, ESR, CRP, pending - Further metabolic testing: aldolase, Vitamin D, Ca, LDH, pending * Assessment & Plan Note - Tim Rainey MD - 06/06/2024 2:45 PM EST Associated Problem(s): Pelvic abscess in female Recently been diagnosed with pelvic abscess, 4 [...] moderate - severe pain every 3 hours * Brief Progress Note - Kim Rush DO - 06/06/2024 1:53 PM EST Neurology brief progress note Imaging reviewed. Pt not seen today. MRI brain neg for infarcts. 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 No further neurologic work up at this time. Please feel free to reach out with further questions. Kim Rush DO Department of Neurology [facility] * Plan of Care - Ekta Howell RN - 06/06/2024 10:51 AM EST A+Ox4. VSS. Pt reports 11/01 mid pubic pain. Medicated with oxycodone with + effect. Continues on IVabx as ordered. Up to bathroom with walker and stand by assist. Gait slow but steady. Safety precautions maintained. BP low this afternoon. IV bolus given as ordered. BP improving. Pt encouraged to drink fluids and try to eat a meal. Problem: Adult Inpatient Plan of Care Goal: Plan of Care Review Outcome: Ongoing (interventions implemented as appropriate) Problem: Fall Injury Risk Goal: Absence of Fall and Fall-Related Injury Outcome: Ongoing (interventions implemented as appropriate) Problem: Pain Acute Goal: Optimal Pain Control and Function Outcome: Ongoing (interventions implemented as appropriate) * Assessment & Plan Note - Tim Rainey MD - 06/06/2024 7:46 AM EST Associated Problem(s): Left leg weakness See gait instability and patient summary * Assessment & Plan Note - Tim Rainey MD - 06/06/2024 7:46 AM EST Associated Problem(s): Pulmonary nodules CT chest performed and significant for biapical [...] checks. -Infectious disease consulted -HIV antibodies, pending * Assessment & Plan Note - Tim Rainey MD - 06/06/2024 7:46 AM EST Associated Problem(s): Hematuria Recently diagnosed with PE due to pulmonary [...] continue the Eliquis - Continue close monitoring. * Assessment & Plan Note - Tim Rainey MD - 06/06/2024 7:46 AM EST Associated Problem(s): Thrombocytosis Patient was significant acute thrombocytosis on labs, [...] pending -Consider further infectious workup (e.g. HIV) * Assessment & Plan Note - Tim Rainey MD - 06/06/2024 7:46 AM EST Associated Problem(s): Anemia Patient with slight but stable anemia, Hgb around 10. Iron studies significant for ferritin of 451,iron concentration 26, iron binding capacity 240, transferrin 192, percent saturation of 11%. Iron studies suggestive of mixed chronic inflammatory and iron deficiency anemia. -Hematology consulted -Venofer IV 5 days * Assessment & Plan Note - Tim Rainey MD - 06/06/2024 7:46 AM EST Associated Problem(s): Hyperlipidemia -Continue home atorvastatin 40 mg daily * Assessment & Plan Note - Tim Rainey MD - 06/06/2024 7:46 AM EST Associated Problem(s): Anxiety -Continue home clonazepam 0.5 mg 3 times daily -Continue home lamotrigine 200 mg twice daily -Continue home duloxetine 120 mg daily -Continue home Adderall 30 mg twice daily as needed * Plan of Care - Keysha Orellana RN - 06/06/2024 6:27 AM EST Alert and oriented, able to make needs known. PRN oxy given for pain. MRI done this shift, pending results, 1 assist OOB with RW to bathroom. Continues IV abx. Safety maintained. Plan of Care Reviewed With: patient * Assessment & Plan Note - Tim Rainey MD - 06/05/2024 6:55 PM EST Associated Problem(s): Pelvic abscess in female Recently been diagnosed with pelvic abscess, 4 [...] -Continue ceftriaxone and Flagyl -Blood cultures from [facility] growing Streptococcus intermedius. -MRI pelvis and proximal lower extremities with contrast, as needed premed w/ Dilaudid once -Oxycodone 5 mg - 10 mg for moderate - severe pain every 3 hours * Assessment & Plan Note - Tim Rainey MD - 06/05/2024 6:55 PM EST Associated Problem(s): Hyperlipidemia -Continue home atorvastatin 40 mg daily * Assessment & Plan Note - Tim Rainey MD - 06/05/2024 6:55 PM EST Associated Problem(s): Anxiety -Continue home clonazepam 0.5 mg 3 times daily -Continue home lamotrigine 200 mg twice daily -Continue home duloxetine 120 mg daily -Continue home Adderall 30 mg twice daily as needed * Assessment & Plan Note - Tim Rainey MD - 06/05/2024 6:40 PM EST Associated Problem(s): Gait instability Patient is mainly brought to the hospital [...] the last 1 year. MRI spine demonstrating m ultilevel multifactorial degenerative changes most pronounced at C5-C6 and C6-C7 levels where thereis up to moderate to severe left neural foraminal narrowing and mild spinal canal stenosis, howeverthere is no significant neural foraminal or spinal canal stenosis at the thoracic levels and there is no abnormal signal or postcontrast enhancement through the spinal cord. The degenerative changes s een on imaging are not felt to be consistent with the patient's clinical symptoms. Neurology consulted, feeling that lower extremity weakness on exam is more likely secondary to suprapubic pain, and with encouragement weakness was slightly better prior to previous exams. They do agree with plan forMRI pelvis and MRI brain although have low suspicion for new septic emboli. - Neurology following -TTE with bubble study, no vegetation noted - MRI brain with and without contrast, pending - MRI pelvis and proximal lower extremities with contrast, pending - Myositis panel, pending - Serum paraneoplastic panel, pending - Further labs for autoimmune workup including: AMADOU, RF, anti-dsDNA, raymond (SM), ROLLER STAKER, C3, C4, ESR, CRP, pending - Further metabolic testing: aldolase, Vitamin D, Ca, LDH, pending - Can consider electromyography pending some of the aforementioned testing - folate/b12 levels, pending * Assessment & Plan Note - Tim Rainey MD - 06/05/2024 6:40 PM EST Associated Problem(s): Hematuria Recently diagnosed with PE due to pulmonary [...] continue the Eliquis - Continue close monitoring. * Assessment & Plan Note - Tim Rainey MD - 06/05/2024 6:40 PM EST Associated Problem(s): Pulmonary nodules CT chest performed and significant for biapical [...] checks. -Infectious disease consulted -HIV antibodies, pending * Plan of Care - Gregory Harris, PT - 06/05/2024 1:50 PM EST Images from the original note were not included. Problem: Adult Inpatient Plan of Care Goal: Plan of Care Review Flowsheets (Taken 06/05/2024 1631) Plan of Care Reviewed With: patient Plan of Care Summary: PT evaluation complete. Patient current is presenting with generalized groin pain which limits her ability to actively flex her hips and ambulate. Her pain also limits her ability to perform bed mobility and transfers. She attempted to ambulate with PT but was only able to shuffle her feet along the floor with significant effort. She has stairs to enter her house, which she is not safe to attempt at this time- per patient, the last time she was home recently her spouse hadto carry her up the steps and then she was not able to move or take care of herself while home. Given her impairments in strength, pain, activity tolerance, and balance compared to her independent janes barraza, patient will need ongoing skilled PT and to discharge to an inpatient facility where ongoingPT could occur in addition to assistance for patient's mobility and self care needs. Acute PT will continue to follow. Of note, patient also complains of feeling as though her pelvic floor is loose - may or may not be related to patient's current symptoms, would recommend a pelvic health PT followup when available / appropriate. Physical Therapy Physical Therapy Initial Assessment Patient Name: Dorothy Issa Stgermain Date of Evaluation: 06/05/2024 Default Flowsheet Data (Last 12 Hours) PT Plan and Recommendation Row Name 06/05/24 9148 Clinical Impression Patient/Family Goals Statement To get stronger / go to rehab and then go back home Criteria for Skilled Therapeutic Interventions Met yes;treatment indicated Impairments Found (describe specific impairments) gait, locomotion, and balance;pain;muscle performance Rehab Potential good, to achieve stated therapy goals Therapy Frequency 5 times/wk PT Predicted Duration of Therapy Intervention 10 days PT Anticipated Equipment Needs at Discharge tub bench;raised toilet seat PT Anticipated Discharge Disposition inpatient facility PT - OK to Discharge ? Yes Plan of Care Review Plan of Care Reviewed With: patient Physical therapy evaluation level based on elements of the patient???s history, examination of bodysystems, clinical presentation, and complexity of clinical decision making, as documented in the EMR, in accordance with CMS CPT code standards. Level of complexity of evaluation : Moderate Comments:63 years old female, past medical history of MDD, memory loss and pelvic DVT/abscess recently discharged from [place] after being treated for PE, pelvic DVT and intra-abdominal abscess with IR drainage has returned to the hospital complaining of difficulty getting out of the bed and hematuria. Per records, patient presented to [facility] about 10 days ago with severe pelvic pain, imaging and studies at that time showed 4 cm pelvic abscess and DVT and pulmonary emboli. Blood culture later came back positive for strep intermedius. Patient was able to start ambulating slightly and therefore got discharged home with recommendations for home PT. After going home she notices she cannot get out of the bed and now has hematuria and therefore came back to the hospital. Seen by urology in the ED and after evaluation they decided against any active intervention and they recommended patientcan resume taking Eliquis. On the other hand [...] neurology, no specific reason could be found. Hospitalization complicated by hypotension, pending MRI Brain which was delayed due to patient pain MRI C/T/L: Multilevel multifactorial degenerative changes most pronounced at C5- C6 and C6-C7 levelswhere there is up to moderate to severe left neural foraminal narrowing and mild spinal canal stenosis. CT Abdomen: 1. Segmental pulmonary embolism of LLL 2. Nonocclusive DVT in the right external iliac vein and likely within the right superficial femoral vein. 3. Small residual intramuscular collection within the left adductor dian/obturator externus muscle, consistent with residual or recurrent abscess. Patient Active Problem List Diagnosis Hematuria Pelvic abscess in female Gait instability Left leg weakness Thrombocytosis Anemia Past Medical History: Diagnosis Date Anxiety Depression High cholesterol Lung nodule s/p resection Syncope Past Surgical History: Procedure Laterality Date LUNG SEGMENTECTOMY 11/15/2022 MGB resection of a spiculated lung lesion; path is neg for malignancy Vitals Stable / WFL Default Flowsheet Data (Last 12 Hours) Adult PT Focused Evaluation/Treatment Row Name 06/05/24 1352 General Information Patient Profile Review yes General Observations of Patient Patient presented to PT and left by PT semi- supine in bed in position of optimal comfort with call button and all needs within reach Precautions/Restrictions fall;safety Row Name 06/05/24 5766 Editor Dictionary Services Editor Dictionary Needed No Row Name 06/05/24 4730 Living Environment Lives With spouse;child(maria antonia), adult spouse and daughter, both work during the day Living Arrangements house Home Accessibility stairs with 2 railings present;stairs to enter home;stairs within home Number of Stairs to Enter Home 6 Number of Stairs Within Home 1 FOS to full bathroom / shower and other bedrooms, patient's bedroom on first floor Stair Railings at Home inside, present at both sides;outside, present at both sides cannot reach both hand rails at the same time Number of Floors 2 Row Name 06/05/24 1350 Equipment Details Equipment in the home Ambulation (row) Ambulation walker - rolling Row Name 06/05/24 1350 Functional Level Prior Bed Mobility independent Bed Mobility Assistive Device none Transferring independent Transfer Assistive Device none Ambulation independent Ambulation Assistive Device none Stairs modified independent Stairs Assistive Device handrail Row Name 06/05/24 1350 Hearing Hearing Status WFL Row Name 06/05/24 1350 Vision Assessment/Intervention Visual Impairment/Limitations WFL Row Name 06/05/24 1350 Cognitive Assessment/Intervention Attention (Cognitive) WNL/WFL Behavior/Mood Observations (Cognitive) WNL/WFL Follows Commands/Answers Questions (Cognitive) 100% of the time Personal Safety (Cognitive) WNL/WFL Row Name 06/05/24 1350 Sensory Assessment (Somatosensory) Sensory Assessment (Somatosensory) sensation intact;UE sensation intact;LE sensation intact Row Name 06/05/24 1350 Pain Scale Pain Scale Pain Scale: Numbers Pre/Post-Treatment (Group) [facility] 06/05/24 1350 Pain Scale: Numbers Treatment Pain: Pre Treatment (Numbers Scale) 5/10 Pain: During Treatment (Numbers Scale) 5/10 Pain: Post Treatment (Numbers Scale) 5/10 Pain: Comment (Numbers Scale) Groin pain bilaterally, gnawing / aching pain, worse with attempts toactively flex hips or separate legs Row Name 06/05/24 1350 General UE Assessment Upper Extremity: Range of Motion LUE ROM was WFL;RUE ROM was WFL Row Name 06/05/24 1350 General LE Assessment Lower Extremity: Range of Motion LLE ROM was WFL;RLE ROM was WFL pain limitations with hip flexion Row Name 06/05/24 1350 MMT (Manual Muscle Testing) Additional Documentation -- B hips 1 to 2-/5 (pain limited), B knees/quads 3/5 with significant effort, shaking and overactivation of hip flexors, B ankles 4/5 / grossly intact Row Name 06/05/24 1350 Motor Coordination Assessment/Training Gross Motor Skills Impairments Detail impaired at B LEs with functional movement, intact at B UEs Row Name 06/05/24 135 Balance Assessments Balance Assessments Static Sitting Balance;Dynamic Sitting Balance;Static Standing Balance;Dynamic Standing Balance Row Name 06/05/24 1350 Static Sitting Balance Static Sitting Position sitting, edge of bed Static Sitting Assistance Independent Row Name 06/05/24 1350 Dynamic Sitting Balance Dynamic Sitting Position sitting, edge of bed Dynamic Sitting Assistance Supervision Row Name 06/05/24 135 Static Standing Balance Static Standing Assistance Minimal assistance Static Standing Extremity Support Bilateral upper extremities;Bilateral lower extremities Static Standing Assistive Devices walker, rolling Static Standing Balance Impairments pain;decreased;strength Row Name 06/05/24 135 Dynamic Standing Balance Dynamic Standing Assistance Minimal assistance Dynamic Standing Extremity Support Bilateral upper extremities;Bilateral lower extremities Dynamic Standing Assistive Devices walker,rolling Dynamic Standing Balance Impairments pain;decreased;strength Dynamic Standing Comment unable to lift LEs significantly, shuffling with effort Row Name 06/05/24 [facility] Bed Mobility Assessment/Treatment Assistive Device (Bed Mobility) adjustable bed;bedrail;hospital bed Scoot/Bridge [place] (Bed Mobility) supervision required Rwdzco-eo-Cny [place] (Bed Mobility) supervision required Xou-al-Pqvqbu [place] (Bed Mobility) moderate assist (50% patient effort) Comment (Bed Mobility) educated on log roll technique for pain management Row Name 06/05/24 135 Transfer Assessment/Treatment Sit-Stand [place] level (Transfers) minimum assist (75% patient effort) Stand-Sit [place] level(Transfers) minimum assist (75% patient effort) Bip-Vyjaw-Atn Assistive Device (Transfers) walker, rolling Row Name 06/05/24 135 Gait Assessment/Treatment [place] (Gait) minimum assist (75% patient effort) Assistive Device (Gait) walker, rolling Distance in Feet (Gait) 2 ft Comment (Gait) shuffling steps, minimal to no step clearance, slides feet on floor / wiggles feet sideways. Reports walking to bathroom with nurses but with significant effort Row Name 06/05/24 135 Stairs Assessment/Treatment [place] (Stairs) unable to perform Row Name 06/05/24 135 Therapeutic Exercise Comment (Therapeutic Exercise) educated on quad sets, glute sets, ankle pumps Row Name 06/05/24 1350 AM-PAC AM-PAC With Stairs Row Name 06/05/24 1350 IP AM-PAC Basic Mobility '6 Clicks'(With Stairs) Turning in Bed Without Bedrails 3 Lying on Back to Sitting on Edge of Flat Bed 3 Moving Bed to Chair 3 Standing Up from Chair 3 Walk in Room 2 Climbs 3-5 Steps 1 IP Mobility Raw Score 15 CMS 0-100% Score 57.7 % CMS G Code Modifier:Current status ([id number]) CK Standardized T-Scale Score 39.45 Row Name 06/05/24 1356 Clinical Impression Patient/Family Goals Statement To get stronger / go to rehab and then go back home Criteria for Skilled Therapeutic Interventions Met yes;treatment indicated Impairments Found (describe specific impairments) gait, locomotion, and balance;pain;muscle performance Rehab Potential good, to achieve stated therapy goals Therapy Frequency 5 times/wk PT Predicted Duration of Therapy Intervention 10 days PT Anticipated Equipment Needs at Discharge tub bench;raised toilet seat PT Anticipated Discharge Disposition inpatient facility PT - OK to Discharge ? Yes Row Name 06/05/24 1350 Planned Therapy Interventions Planned Therapy Interventions balance training;bed mobility training;gait training Row Name 06/05/24 1350 Plan of Care Review Plan of Care Reviewed With patient Row Name 06/05/24 1350 PT Eval/ Treat- Additional Details Document Type Initial Evaluation PT Date of Initial Eval/Re-Eval 06/05/24 PT Treatment Received On 06/05/24 Patient Effort good Symptoms Noted During/After Treatment increased pain;fatigue PT Goal Summary (all recorded) PT Rehab Goal Summary Row Name 06/05/24 1356 Physical Therapy Goals Bed Mobility Goal Selection (PT) bed mobility, PT goal 1 Transfer Goal Selection (PT) transfer, PT goal 1 Gait Training Goal Selection (PT) gait training, PT goal 1 Stairs Goal Selection (PT) stairs, PT goal 1 Row Name 06/05/24 135 Bed Mobility Goal 1 (PT) Activity (Bed Mobility Goal 1, PT) bed mobility activities, all [place] Level/Cues Needed (Bed Mobility Goal 1, PT) supervision required Assitive Devices (Bed Mobility Goal 1, PT) hospital bed;bed rails Time Frame (Bed Mobility Goal 1, PT) 10 days Row Name 06/05/24 3019 Transfer Goal 1 (PT) Activity (Transfer Goal 1, PT) transfers, all [place] Level/Cues Needed (Transfer Goal 1, PT) supervision required Assitive Devices (Transfer Goal 1, PT) -- LRAD Time Frame (Transfer Goal 1, PT) 10 days Row Name 06/05/24 1350 Gait Training Goal 1 (PT) Activity (Gait Training Goal 1, PT) gait (walking locomotion) [place] Level (Gait Training Goal 1, PT) supervision required Assistive Devices (Gait Training Goal 1, PT) walker, rolling Distance (Gait Goal 1, PT) 25 ft Time Frame (Gait Training Goal 1, PT) 10 days Row Name 06/05/24 1350 Stairs Goal 1 (PT) Activity (Stairs Goal 1, PT) ascending stairs;descending stairs;using handrail, left;using handrail, right [place] Level/Cues Needed (Stairs Goal 1, PT) contact guard assist Assistive Devices (Stairs Goal 1, PT) handrail Number of Stairs (Stairs Goal 1, PT) 5 Time Frame (Stairs Goal 1, PT) 10 days Row Name 06/05/24 1350 Corporate Safety Coordinator Goal (PT) Statement (Mcc Goal, PT) Patient will perform all household mobility without AD or LRAD [place] Level (Corporate Safety Coordinator Goal, PT) independent Time Frame (Corporate Safety Coordinator Goal, PT) 2 months Gregory Harris PT Licensure: PT, MA: [id number] * Plan of Care - Nichole Randolph RN - 06/05/2024 12:53 PM EST A&O x4. Tolerating po well. Ambulated to BR with 1 assist with walker. Continues to c/o lower extremity weakness. CT scan taken this am of abd. Brain MRI at 0430. 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 Oxy 5mg pofor c/o pain with fair effect. Oxy 10mg po given prior to CT scan with good effect. Problem: Fall Injury Risk Goal: Absence of Fall and Fall-Related Injury 06/05/2024 1249 by Nichole Randolph RN Outcome: Ongoing (interventions implemented as appropriate) 06/05/2024 1249 by Nichole Randolph RN Outcome: Ongoing (interventions implemented as appropriate) Problem: Skin Injury Risk Increased Goal: Skin Health and Integrity 06/05/2024 1249 by Nichole Randolph RN Outcome: Ongoing (interventions implemented as appropriate) 06/05/2024 1249 by Nichole Randolph RN Outcome: Ongoing (interventions implemented as appropriate) Problem: Pain Acute Goal: Optimal Pain Control and Function Outcome: Ongoing (interventions implemented as appropriate) Plan of Care Reviewed With: patient * Assessment & Plan Note - Tim Rainey MD - 06/05/2024 9:52 AM EST Associated Problem(s): Anemia Patient with slight but stable anemia, Hgb around 10. Iron studies significant for ferritin of 451,iron concentration 26, iron binding capacity 240, transferrin 192, percent saturation of 11%. Iron studies suggestive of mixed chronic inflammatory and iron deficiency anemia. -Hematology consulted -Venofer IV 5 days * Assessment & Plan Note - Tim Rainey MD - 06/05/2024 7:42 AM EST Associated Problem(s): Left leg weakness See gait instability and patient summary * Assessment & Plan Note - Tim Rainey MD - 06/05/2024 7:42 AM EST Associated Problem(s): Thrombocytosis Patient was significant acute thrombocytosis on labs, [...] pending -Consider further infectious workup (e.g. HIV) * Plan of Care - Oma Velasquez RN - 06/05/2024 6:00 AM EST Plan of Care Summary: Patient is alert and oriented, can be forgetful at times. Pelvic pain managedper MAR. Midline access intact with good blood return. BP improved after 500 ml fluid bolus. MRI not done-pt refused to wait for 20 minutes and desired to be rescheduled for 06/06 morning-provider notified. Pt with low grade temp-provider made aware. No hematuria noted throughout the shift. Plan of care ongoing. Safety maintained. Plan of Care Reviewed With: patient * Brief Progress Note - TERRY Lopez - 06/05/2024 5:22 AM EST Pt seen around 10:30pm after she had both automatic and manual blood pressures of 77-78/43-46. Other vitals at the time remarkable for T 98.6, RR 20, HR 96, SpO2 99% on room air. Arrived at bedside to find pt resting comfortably in her bed. She complained of ongoing groin pain/lower abdominal pain which she said was exacerbated by ambulating to the bathroom earlier in the night. She otherwise stated she felt fine and denied chest pain, shortness of breath, dizziness, nausea/vomiting. Stated she had previously been hypotensive in the high 70s both at home and at other hospitals but has neverbeen symptomatic with these blood pressures. She denied new abdominal pain, fevers/chills, URI sympt oms, dysuria, diarrhea, melena/hematochezia. Per nursing, urine remains yellow with no recurrence of hematuria. Of note, pt had received 20mg oxycodone + 0.5mg klonopin ~8pm. STAT labs including CBC, CMP, lactic were sent and a 500cc LR bolus was hung after these labs were collected. Following completion of the IVF bolus, pt's BP was 104/53 and other vitals remained stable. CMP WNL. CBC essentially stable and with slight drop in H/H from 9.7/30.7 (2/10 am) to 9.1/27.7. Lactic 1.1. [place] hypotension was most likely medication induced and aided by discontinuation of the maintenanceIVF. Discussed with nursing- suggested avoiding the 20mg oxycodone again overnight and using the 5mg oxycodone q3h PRN. Pt was later complaining of 8/10 groin pain for which she was given the 5mg oxycodone and successfully fell asleep. A 1x dose of 975mg tylenol was later given as part of multimodal pain management. As the pt was scheduled for an MRI brain and pelvis at 5:30am, the plan was to give the pt a total of 10mg oxycodone and 0.5mg klonopin as pre-meds and possible a 1x PRN 0.5mg IV dilaudid dose to be used during the MRI if needed. Pt was transferred to [facility] MRI but subsequently declined to proceed with imaging after being informed of a 20 minute delay and due to ongoing pain. She was transferred back to the [facility] and her MRIs were rescheduled to 06/06 at 5am. * Assessment & Plan Note - Tim Rainey MD - 06/04/2024 6:20 PM EST Associated Problem(s): Gait instability Patient is mainly brought to the hospital [...] the last 1 year. MRI spine demonstrating m ultilevel multifactorial degenerative changes most pronounced at C5-C6 and C6-C7 levels where thereis up to moderate to severe left neural foraminal narrowing and mild spinal canal stenosis, howeverthere is no significant neural foraminal or spinal canal stenosis at the thoracic levels and there is no abnormal signal or postcontrast enhancement through the spinal cord. The degenerative changes s een on imaging are not felt to be consistent with the patient's clinical symptoms. -TTE with bubble study - MRI brain with and without contrast - MRI pelvis and proximal lower extremities with contrast (to eval for inflammatory changes or abscess(es) in muscles) - Myositis panel - Serum paraneoplastic panel - Further labs for autoimmune workup including: AMADOU, RF, anti-dsDNA, raymond (SM), ROLLER STAKER, C3, C4, ESR, CRP - Further metabolic testing: aldolase, Vitamin D, Ca, LDH - Can consider electromyography pending some of the aforementioned testing - Neurology following - folate/b12 levels, pending * Assessment & Plan Note - Tim Rainey MD - 06/04/2024 6:20 PM EST Associated Problem(s): Pelvic abscess in female Recently been diagnosed with pelvic abscess, 4 [...] -Continue ceftriaxone and Flagyl -Blood cultures from . V growing Streptococcus intermedius. -MRI pelvis and proximal lower extremities with contrast (to eval for inflammatory changes or abscess(es) in muscles), * Assessment & Plan Note - Tim Rainey MD - 06/04/2024 6:20 PM EST Associated Problem(s): Hematuria Recently diagnosed with PE due to pulmonary [...] continue the Eliquis - Continue close monitoring. * Assessment & Plan Note - Tim Rainey MD - 06/04/2024 6:20 PM EST Associated Problem(s): Thrombocytosis Patient was significant acute thrombocytosis on labs, [...] pending -Consider further infectious workup (e.g. HIV) * Assessment & Plan Note - Tim Rainey MD - 06/04/2024 6:20 PM EST Associated Problem(s): Anemia Patient with slight but stable anemia, Hgb around 10. Iron studies significant for ferritin of 451,iron concentration 26, iron binding capacity 240, transferrin 192, percent saturation of 11%. Iron studies suggestive of mixed chronic inflammatory and iron deficiency anemia. -Hematology consulted -Venofer IV 5 days * Plan of Care - Karla Bedoya RN - 06/04/2024 5:49 PM EST Case Management Continued Stay Review: Pertinent Clinical impacting hospitalization, level of care update, if indicated: Per chart review and MDR pt not med ready for DC. Pt cont with LE weakness and subsequent workup r/t this. Neuro is following. Will need therapy orders for PT recs for DC planning. Discharge Planning: Discharge Barrier: Not medically clear. Discharge Plan: Home with VNA vs STR pending PT recs. CM will cont to follow. Choice list (with star ratings) provided / discussed, if indicated (Y or NA): * Plan of Care - Randa Chung RN - 06/04/2024 5:12 PM EST A&OX4. Able to make needs known. Meds whole. Bilat LE weakness. Stand by assist with walker. Daughter at bedside and very supportive. Daughter helped pt shower. PRN pain meds given with good effect. No skin issues. Midline dressing changed due to it coming off. Plan for MRI of brain and pelvis 0530am. Ambulance worm picker time in for 0430. Pt will need to be premedicated prior to MRI. IV antibiotics continued for pelvic abscess. Hourly rounds complete. Call light within reach. 2230 hypotensive 77/43. Manual complete 78/46. MD notified. Labs sent. LR 500ml bolus given. * Brief Progress Note - Kim Rush DO - 06/04/2024 3:49 PM EST [facility] Neurology Progress Note Reason for consult: 63 y.o. female with a history of HLD, syncope, cognitive impairment, bipolar disorder, for whom neurology is consulted for progressive proximal BLE weakness. Interval events: Further history today- symptoms started on a morning with pain in the L groin but she was able to ambulate and went to work. Pain progressed to the R side by that evening, then was worse on Tuesday morning. She presented to the ED on Tuesday morning. There was no prolonged period of immobilization. Denies numbness, tingling, pain elsewhere. No preceding illnesses. Before that she was feeling completely fine. She was admitted to [facility], had extensive imaging showing groin abscessand found to have bacteremia of unclear origin. Also found to have a DVT/PE of unclear origin and was started on AC. Discharged on IV abx. States she was still in significant pain and had a lot of trouble ambulating at dc to the point where she wasn't able to get around at home. The symptoms that brought her into the hospital have not progressively worsened over time. They have been stable. Aside from this, she notes episodes of dizziness with falls that have been ongoing for years. She had one a couple weeks before presentation without LOC and hit her head requiring stitches. She sees neurology for this, had an extensive work up (reportedly) and was told these episodes were due to stress. Medications: Current Facility-Administered Medications Medication Dose Route Frequency Provider Last Rate Last Admin apixaban (ELIQUIS) tablet 5 mg 5 mg oral q12h REPLACED BY [facility] Juma Hernandez MD 5 mg at 06/04/24 0839 [START ON 06/05/2024] cefTRIAXone (ROCEPHIN) injection 1 g 1 g intravenous q24h REPLACED BY [facility] Dejah Sweeney MD clonazePAM (KlonoPIN) tablet 0.5 mg 0.5 mg oral 3x daily PRN Dejah Sweeney MD 0.5 mg at 06/03/242051 docusate sodium (COLACE) capsule 100 mg 100 mg oral 2x daily Juma Hernandez MD 100 mg at 06/04/24 0839 metroNIDAZOLE (FLAGYL) 500 mg in 0.9% NaCl 100 mL IVPB premix 500 mg intravenous q8h REPLACED BY [facility] Yovany Khan MD 0 mL/hr at 06/01/24 2333 500 mg at 06/04/24 1400 naloxone (NARCAN) injection 0.4 mg 0.4 mg intravenous q2h PRN Juma Hernandez MD naloxone 0.04 mg injection 0.04 mg intravenous q3min PRN Juma Hernandez MD oxyCODONE IR (ROXICODONE) tablet 5 mg 5 mg oral q3h PRN Juma Hernandez MD 5 mg at 06/04/24 1218 Or oxyCODONE IR (ROXICODONE) tablet 20 mg 20 mg oral q6h PRN Juma Hernandez MD 20 mg at 06/04/24 1439 senna (SENOKOT) tablet 17.2 mg 17.2 mg oral Nightly Juma Hernandez MD 17.2 mg at 06/03/242051 sodium chloride 0.9% flush 10 mL 10 mL intravenous See admin instructions Tim Rainey MD And sodium chloride 0.9% flush 10 mL 10 mL intraluminal q12h REPLACED BY [facility] Tim Rainey MD 10 mL at 06/04/24 1000 sodium chloride 0.9% flush 2.5-10 mL 2.5-10 mL intravenous See admin instructions Juma Hernandez MD And sodium chloride 0.9% flush 2.5-10 mL 2.5-10 mL intravenous q12h REPLACED BY [facility] Juma Hernandez MD 10 mL at 06/04/24 0843 traZODone (DESYREL) tablet 150 mg 150 mg oral Nightly uJma Hernandez MD 150 mg at 06/03/24 2311 ROS: as above Vital Signs: BP 94/57 (BP Location: Right arm, Patient Position: Lying) Pulse 84 Temp 37.8 ??C (100 ??F) (Oral) Resp 16 Ht 1.638 m (5' 4.5 ) Wt 68.5 kg (151 lb 0.2 oz) SpO2 95% BMI 25.52 kg/m?? General Medical Exam: General: Clinically well-appearing, comfortable. Significant tenderness to palpation in the midline suprapubic region. No groin tenderness. Neurologic exam: Mental status: alert, oriented to place, month and year. Good fund of knowledge. Speech is clear and fluent. Intact naming of high and low frequency items, intact repetition, able to follow complex commands. CN: PERRL, full visual hair, EOMI Face symmetric with intact sensation Hearing intact Palate symmetric, uvula midline Traps/SCM 5/5 Tongue midline Motor: Normal bulk. No drift. Neck strength flexion/extension 5/5. Strength in all muscle groups ofUE 5/5. In LE- RLE hip flexion 5/5 with encouragement through suprapubic pain, 5/5 in all other muscle groups of the RLE. In the LLE, she has 4+ strength in hip flexion, again with encouragement due to pain. 5/5 in all other muscle groups of LLE. Sensory: intact to LT in b/l UE and LE. Intact to vibration and temperature throughout b/l UE and LE as well. Reflexes: 3+ and symmetric in b/l biceps, brachioradialis, triceps, patella, 2+ achilles. Toes downgoing. Coordination: No dysmetria on finger to nose Gait: not walked Relevant labs Recent Results (from the past 24 hours) Sedimentation Rate Collection Time: 06/03/24 6:19 PM Specimen: Venous, Central Line; Blood Result Value Ref Range Sed Rate 84 (H) <30 mm/Hr mm/Hr Lactate dehydrogenase Collection Time: 06/03/24 6:19 PM Specimen: Venous, Central Line; Blood Result Value Ref Range LDH 188 135 - 225 U/L CBC Auto Differential Collection Time: 06/04/24 3:44 AM Specimen: Venous, Peripheral; Blood Result Value Ref Range WBC 11.6 (H) 3.8 - 10.8 10*3/uL RBC 3.81 3.80 - 5.10 10*6/uL Hemoglobin 10.3 (L) 11.7 - 15.5 g/dL Hematocrit 32.7 (L) 35.0 - 45.0 % MCV 85.8 80.0 - 100.0 fL MCH 27.0 27.0 - 33.0 pg MCHC 31.5 (L) 32.0 - 36.0 g/dL RDW 14.0 11.0 - 15.0 % Platelets 1,166 (HH) 140 - 400 10*3/uL MPV 8.5 7.5 - 12.5 fL nRBC % 0.0 /100 WBCs nRBC # <0.01 <0.01 10*3/uL Basic metabolic panel Collection Time: 06/04/24 3:44 AM Specimen: Venous, Peripheral; Blood Result Value Ref Range NA 138 135 - 145 mmol/L K 4.0 3.5 - 5.3 mmol/L Cl 99 98 - 107 mmol/L CO2 26 22 - 32 mmol/L BUN 10 7 - 23 mg/dL Creatinine 0.71 0.50 - 1.20 mg/dL Glucose 186 (H) 65 - 99 mg/dL Calcium 9.5 8.6 - 10.5 mg/dL Anion Gap 13 5 - 15 eGFR >90 >=60 mL/min/1.73m2 Magnesium Collection Time: 06/04/24 3:44 AM Specimen: Venous, Peripheral; Blood Result Value Ref Range MG 2.0 1.6 - 2.4 mg/dL Raymond (SM) Antibody Collection Time: 06/04/24 3:44 AM Specimen: Venous, Peripheral; Blood Result Value Ref Range Sm Antibody <1.0 NEG <1.0 NEG AI Manual Differential Collection Time: 06/04/24 3:44 AM Specimen: Venous, Peripheral; Blood Result Value Ref Range Neutrophil %, Manual 49 % Lymphocyte %, Manual 40 % Monocyte %, Manual 9 % Eosinophil %, Manual 0 % Basophil %, Manual 1 % Reactive Lymphocyte % 1 0 - 6 % Total Neutrophil #, Manual 5.68 1.50 - 7.80 10*3/uL Total Lymph #, Manual 4.76 (H) 0.85 - 3.90 10*3/uL Monocyte #, Manual 1.04 (H) 0.20 - 0.95 10*3/uL Eosinophil #, Manual 0.00 (L) 0.02 - 0.50 10*3/uL Basophil #, Manual 0.12 0.00 - 0.20 10*3/uL Reactive Lymphocytes # 0.12 10*3/uL Platelet Estimate Increased (A) Adequate RBC Morphology Normal Normal, No clinically significant RBC morphology present (ICSH guidelines, 2015). Total Cells Counted 114 Iron Saturation Collection Time: 06/04/24 3:44 AM Specimen: Venous, Peripheral; Blood Result Value Ref Range Iron Saturation 11 (L) 20 - 50 % Iron 26 (L) 30 - 160 ug/dL Transferrin 192 (L) 200 - 360 mg/dL Total Iron Binding Capacity 240 (L) 255 - 450 ug/dL Ferritin Collection Time: 06/04/24 3:44 AM Specimen: Venous, Peripheral; Blood Result Value Ref Range Ferritin 451.0 (H) 11.0 - 306.0 ng/mL Hepatic Function Panel Collection Time: 06/04/24 3:44 AM Specimen: Venous, Peripheral; Blood Result Value Ref Range Total Protein 8.2 (H) 6.0 - 8.0 g/dL Albumin 3.7 3.5 - 5.2 g/dL Globulin, Total 4.5 (H) 2.1 - 4.2 g/dL Bilirubin, Total 0.4 0.2 - 1.2 mg/dL Bilirubin, Direct 0.2 <=0.4 mg/dL Alkaline Phosphatase 163 (H) 35 - 129 U/L AST 22 10 - 40 U/L ALT 12 10 - 40 U/L Bilirubin, Indirect 0.20 <=0.70 mg/dL A/G Ratio 0.8 (L) 1.5 - 3.0 CBC Auto Differential Collection Time: 06/04/24 9:57 AM Specimen: Venous, Peripheral; Blood Result Value Ref Range WBC 10.2 3.8 - 10.8 10*3/uL RBC 3.48 (L) 3.80 - 5.10 10*6/uL Hemoglobin 9.7 (L) 11.7 - 15.5 g/dL Hematocrit 30.7 (L) 35.0 - 45.0 % MCV 88.2 80.0 - 100.0 fL MCH 27.9 27.0 - 33.0 pg MCHC 31.6 (L) 32.0 - 36.0 g/dL RDW 14.1 11.0 - 15.0 % Platelets 813 (H) 140 - 400 10*3/uL MPV 8.6 7.5 - 12.5 fL nRBC % 0.0 /100 WBCs nRBC # <0.01 <0.01 10*3/uL Manual Differential Collection Time: 06/04/24 9:57 AM Specimen: Venous, Peripheral; Blood Result Value Ref Range Neutrophil %, Manual 67 % Band % 1 0 - 7 % Lymphocyte %, Manual 18 % Monocyte %, Manual 9 % Eosinophil %, Manual 0 % Basophil %, Manual 1 % Reactive Lymphocyte % 4 0 - 6 % Total Neutrophil #, Manual 6.94 1.50 - 7.80 10*3/uL Bands #,Manual 0.10 10*3/uL Total Lymph #, Manual 2.24 0.85 - 3.90 10*3/uL Monocyte #, Manual 0.92 0.20 - 0.95 10*3/uL Eosinophil #, Manual 0.00 (L) 0.02 - 0.50 10*3/uL Basophil #, Manual 0.10 0.00 - 0.20 10*3/uL Reactive Lymphocytes # 0.41 10*3/uL Platelet Estimate Increased (A) Adequate RBC Morphology Normal Normal, No clinically significant RBC morphology present (ICSH guidelines, 2015). Total Cells Counted 114 Imaging: MRI C/T/L Evaluation is degraded by motion artifact on multiple sequences. 1. Multilevel multifactorial degenerative changes most pronounced at C5-C6 and C6-C7 levels where there is up to moderate to severe left neural foraminal narrowing and mild spinal canal stenosis. 2. No significant neural foraminal or spinal canal stenosis at thoracic levels. 3. No abnormal signal or postcontrast enhancement through the spinal cord. CT abdomen IMPRESSION: 1. Segmental pulmonary embolism in the [...] follow-up chest CT in 3 months. (Incidental) Assessment/Plan 63 y.o. female with a history of HLD, syncope, cognitive impairment, bipolar disorder, for whom neurology is consulted for proximal LE weakness. Exam significant for hyperreflexia- does have some degenerative changes on C spine MRI. Other than this, it seems like her weakness is primarily related to significant suprapubic pain on my exam. With encouragement, weakness is slightly better than priorexams which is reassuring, though still some degree of proximal weakness specifically in the proximal LLE. Agree with previous work up recommended, specifically MRI pelvis given possible residual abscess on CT. MRI brain is reasonable but low suspicion for new septic emboli with neg blood cultures.Additionally, would consider further evaluation of suprapubic pain as well as possibly malignancy screening for unprovoked DVT/PE. Further recommendations pending these studies. Kim Rush DO Department of Neurology [facility] * Med Student Consult Note - Leland Fernando - 06/04/2024 10:01 AM EST Associated Order(s): Inpatient consult to Heme/Onc Medical Student Notes should not be used for clinical decision making unless the note has been cosigned by an attending physician. Initial Consult Note Inpatient consult to Heme/Onc Consult performed by: Leland Fernando Consult ordered by: Eliazar Morgan MD Reason for consult: Thrombocytosis HISTORY OF PRESENT ILLNESS: History obtained from: Patient and Medical Record 63 year old female w/ PMHx HLD, bipolar disorder, syncope, and hx lung nodules, recently admitted at [facility] (05/19-05/30) for Streptococcus intermedius bacteremia 2/2 intra-abdominal abscess s/p antibiotics and IR drainage (05/29) with hospital course c/b pelvic DVT and PE discharged on Eliquis who presented on 06/01 with hematuria and LE weakness. Hematology was consulted for uptrending thrombocytosis. 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 Presented with 3 days of b/l hip [...] has wedge resection in in 2022 at [facility] and the pathology was normal. [...] Surgical History: LUNG SEGMENTECTOMY Medications Current Medications: apixaban (ELIQUIS) tablet 5 mg, 5 mg, oral, q12h SERAFIN [START ON 06/05/2024] cefTRIAXone (ROCEPHIN) injection 1 g, 1 g, intravenous, q24h SERAFIN clonazePAM (KlonoPIN) tablet 0.5 mg, 0.5 mg, oral, 3x daily PRN docusate sodium (COLACE) capsule 100 mg, 100 mg, oral, 2x daily metroNIDAZOLE (FLAGYL) 500 mg in 0.9% NaCl 100 mL IVPB premix, 500 mg, intravenous, q8h SERAFIN naloxone (NARCAN) injection 0.4 mg, 0.4 mg, intravenous, q2h PRN naloxone 0.04 mg injection, 0.04 mg, intravenous, q3min PRN oxyCODONE IR (ROXICODONE) tablet 5 mg, 5 mg, oral, q3h PRN OR oxyCODONE IR (ROXICODONE) tablet 20 mg, 20 mg, oral, q6h PRN senna (SENOKOT) tablet 17.2 mg, 17.2 mg, oral, Nightly sodium chloride 0.9% (NS) premix infusion, , intravenous, Continuous IV Midline Catheter Line Care, , , Until discontinued AND sodium chloride 0.9% flush 10 mL, 10 mL, intravenous, See admin instructions AND sodium chloride 0.9% flush 10 mL, 10 mL, intraluminal, q12h SERAFIN IV Peripheral Line Care, , , Until discontinued AND sodium chloride 0.9% flush 2.5-10 mL, 2.5-10 mL, intravenous, See admin instructions AND sodium chloride 0.9% flush 2.5-10 mL, 2.5-10 mL, intravenous, q12h SERAFIN traZODone (DESYREL) tablet 150 mg, 150 mg, oral, Nightly Allergies: Ampicillin Cephalexin Penicillin G Potassium Social History: Tobacco Use Smoking status: Never Smokeless tobacco: Never Substance Use Topics Alcohol use: Never Drug use: Never Family History: Problem Relation Age of Onset Bladder Cancer Paternal Grandmother Breast cancer Maternal Grandmother Paternal Grandmother Graves' disease Brother Paternal Grandmother Hyperlipidemia Mother Liver cancer Paternal Grandfather Lung cancer Maternal Grandfather Ovarian cancer Maternal Grandmother Paternal Great-grandmother Prostate cancer Father Uterine cancer Father's Sister Objective Temp: [36.2 [...] is no abdominal tenderness. Genitourinary: Comments: No huff Musculoskeletal: General: No swelling. Cervical back: No [...] ! Clarity, Urine Clear Cloudy ! Specific [place], Urine 1.005 - 1.030 1.015 pH, Urine [...] Imaging/Other Studies CTA chest with contrast (at [facility] on 05/20/24): 1.Multiple bilateral lower lobe acute [...] MRI pelvis with and without contrast (at [facility] on 05/21/24): IMPRESSION: 1.Findings suspicious for 3.6 cm abscess collection within the left obturator muscle. 2.Urinary bladder wall thickening could represent cystitis, correlation with urinalysis is advised. CT Abd Pelvis W Contrast Addendum Date: 06/01/2024 Addendum: COMMUNICATION: The findings were communicated via [employer] secure chat acknowledged by Dr. Khan at 5:35 PM on 06/01/2024. If this radiology report contains a blank impression section, it is an incomplete radiology report. Please contact the interpreting radiologist or applicable radiology division as soon as possible to obtain the completed interpretation. Workstation ID: [id number] Result Date: 06/04/2024 1. Segmental pulmonary embolism [...] to obtain the completed interpretation. Workstation ID: [id number] Smear Review: Reactive lymphocytes, some ovalocytes, no schistocytes or dysplastic cells Assessment & Plan Principal Problem: Weakness of both lower extremities Active Problems: Hematuria Pelvic abscess in female Gait instability 63F w/ PMHx HLD, bipolar disorder, syncope, and hx lung nodules, recently admitted at [facility] (05/19-05/30) for Streptococcus intermedius bacteremia 2/2 intra- [...] intermedius bacteremia andintra-abdominal abscess s/p IR drainage (05/29) and ongoing antibiotics which is altogether most [...] plan of care with: Fellow and Attending. LELAND FERNANDO MS-4 Cosigned by Sathish Ott MD at 06/06/2024 4:47 AM EST Associated attestation - Satihsh Ott MD - 06/06/2024 4:47 AM EST A Medical Student assisted with the documentation [...] the setting of recent hospitalizatin at [facility] (05/19/24-05/30/24) for same presentation found to have [...] a/p, IgG/M/A, SPEP, sFLC, peripheral flowcytometry r/o CUSTOMER OPERATIONS SPECIALIST, and NGS MPN core panel to exclude MPN though this is unlikely given acuity. Please repeat hemolysis markers hapto, LDH, retic, Billirubin, JACK, if positive would send [facility] flow cytometry last check no hemolysis was [...] for procedures performed during this patient encounter * Assessment & Plan Note - Tim Rainey MD - 06/04/2024 8:03 AM EST Associated Problem(s): Left leg weakness See gait instability and patient summary * Plan of Care - Joy Sierra RN - 06/03/2024 11:49 PM EST 7p-7a 63 y.o. female who was admitted on 06/01/2024 (Hospital Day: 3) due to Weakness of both lower extremities. Pt pleasant and cooperative, Vss overnight Remains afebrile, continues on flagyl/ceftriaxone Denies chest pain and shortness of breath Reports ongoing pelvic pain - continues with oxycodone q6h Klonazepam x1 for anxiety c good effect before bed Oob to BR c RW x1 assist, BLE weakness present, no hematuria noted overnight Awaiting MRI Brain and MRI Pelvis, yet to be scheduled Frequent checks, calling appropriately for assistance, pt educated about increased risk for falls, verbalized understanding Plt increased this morning - responding clinician ordered NS @125/hr continuously Safety maintained overnight * Plan of Care - Chayito Mason RN - 06/03/2024 6:27 PM EST Pleasant and cooperative. Had several visits with family today. MRI of cervical, thoracic and lumbar spine performed this morning. New order for MRI of head and pelvis, no scheduled time yet. Pt 1 assist with RW OOB. Takes meds whole with water. Requests PRN oxycodone for pelvic pain. Uses call light appropriately. * Assessment & Plan Note - Dejah Sweeney MD - 06/03/2024 3:27 PM ESTAssociated Problem(s): Hematuria Recently diagnosed with PE due to pulmonary [...] continue the Eliquis - Continue close monitoring. * Assessment & Plan Note - Dejah Sweeney MD - 06/03/2024 3:22 PM ESTAssociated Problem(s): Gait instability Patient is mainly brought to the hospital [...] for autoimmune workup including: AMADOU, RF, anti-dsDNA, raymond (SM), ROLLER STAKER, C3, C4, ESR, CRP - Further metabolic testing: aldolase, Vitamin D, Ca, LDH - Can consider electromyography pending some of the aforementioned testing - Neurology following * Assessment & Plan Note - Dejah Sweeney MD - 06/03/2024 3:22 PM ESTAssociated Problem(s): Pelvic abscess in female Recently been diagnosed with pelvic abscess, 4 [...] -Continue ceftriaxone and Flagyl -Blood cultures from [facility] growing Streptococcus intermedius. -MRI pelvis and proximal lower extremities with contrast (to eval for inflammatory changes or abscess(es) in muscles), * Brief Progress Note - Fanny Dominguez MD - 06/03/2024 3:00 PM EST Patient not seen today. Her MRI whole spine with and without contrast does not show findings that would explain progressive, proximal BLE weakness of hip flexors and adductors. Streptococcus intermedius bacteremia can cause abscess in deep tissues but muscle involvement is uncommon; however, she could have a post- infectious or immune-mediated myopathy. Furthermore, a low CK does not rule out an autoimmune, inflammatory, or paraneoplastic muscle disorder. Her hyperreflexia may be due to C-spine canal stenosis, although this is mild. For further workup of hyperreflexia with proximal weakness, with concern for central inflammatory or paraneoplastic process, would get MRI brain with and without contrast at this point. Of note, she has bladder thickening and presented with hematuria. Urology team opts for outpatient biopsy for question of malignancy. Here are updated recommendations: - Please continue with TTE with bubble study - MRI brain with and without contrast - MRI pelvis and proximal lower extremities with contrast (to eval for inflammatory changes or abscess(es) in muscles) - Myositis panel - Serum paraneoplastic panel - Further labs for autoimmune workup including: AMADOU, RF, anti-dsDNA, raymond (SM), ROLLER STAKER, C3, C4, ESR, CRP - Further metabolic testing: aldolase, Vitamin D, Ca, LDH - Can consider electromyography pending some of the aforementioned testing Kwasi Dominguez MD Assistant Director Of Plant Operations of Neurology * Assessment & Plan Note - Dejah Sweeney MD - 06/03/2024 8:18 AM ESTAssociated Problem(s): Left leg weakness See gait instability and patient summary * Plan of Care - Rosa Maria Schroeder RN - 06/03/2024 3:55 AM EST Pt A&Ox4, able to make needs known. Tolerated meds whole. Ambulated OOB with s/b assist and RW to bathroom-- voiding spontaneously, no hematuria noted. Continued IV abx. Pt endorsed pelvic pain--PRN oxycodone admin'd per active orders. LUE single lumen PICC patency maintained, flushed w/o difficulty and +blood return. Plan for scheduled MRI scan in AM. Frequent safety and comfort rounding com pleted- patient safety & comfort maintained. Plan of Care Reviewed With: patient Problem: Adult Inpatient Plan of Care Goal: Plan of Care Review Outcome: Ongoing (interventions implemented as appropriate) * Plan of Care - Chayito Mason RN - 06/02/2024 6:27 PM EST A+Ox4. Pleasant and cooperative. Requests PRN oxycodone for lower abd/suprapubic pain. Remains on IV abx. 1 assist to bathroom with RW. Reports lower extremity weakness that started approx 3 weeks ago. Neuro consulted this afternoon and ordered MRI of cervical, thoracic and lumbar spine with and without contrast. Currently scheduled for 06/03/24 at 0710 Scanner A. Single lumen PICC to LUE flushes well with +blood return. Uses call light appropriately. Safety maintained. * Assessment & Plan Note - Bin Fairchild MD - 06/02/2024 5:27 PM ESTAssociated Problem(s): Hematuria Recently diagnosed with PE due to pulmonary [...] to continue the Eliquis Continue close monitoring. * Assessment & Plan Note - Bin Fairchild MD - 06/02/2024 4:45 PM ESTAssociated Problem(s): Pelvic abscess in female Recently been diagnosed with pelvic abscess, 4 [...] Continue ceftriaxone and Flagyl Blood cultures from [facility] growing Streptococcus intermedius. * Assessment & Plan Note - Bin Fairchild MD - 06/02/2024 4:45 PM ESTAssociated Problem(s): Gait instability Patient is mainly brought to the hospital [...] bubble study Follow the progression of disease * Assessment & Plan Note - Bin Fairchild MD - 06/02/2024 4:45 PM ESTAssociated Problem(s): Left leg weakness See gait instability and patient summary * Plan of Care - Rosa Maria Schroeder RN - 06/02/2024 7:26 AM EST Patient arrived from [facility] ED to [facility] 5 at approx 2330. Unit transfer 2nd RN skin check completed. Pt A&Ox4, able to make needs known. VSS. Ambulated OOB with s/b assist and RW to bathroom-- voidingspontaneously, no hematuria noted. Continued IV abx. LUE single lumen PICC patency maintained, flushed w/o difficulty and +blood return. Frequent safety and comfort rounding completed- patient safety& comfort maintained. Plan of Care Reviewed With: patient Progress: no change Problem: Adult Inpatient Plan of Care Goal: Plan of Care Review Outcome: Ongoing (interventions implemented as appropriate) * ED to IP Acute Care Handoff - Sheila Harris RN - 06/01/2024 11:12 PM EST Nursing Handoff - ED to Inpatient This note accurately reflects the patient's condition at the time the note was created and does notcontain all nursing documentation and data. Chief Complaint: Chief Complaint Patient presents with Blood in Urine Admitting Diagnosis: (R31.9) Hematuria (primary encounter diagnosis) Vital Signs: Vital Signs for the past 1.5 hrs: BP Temp Temp src Pulse Resp SpO2 Height Weight Oxygen Therapy 06/01/24 2212 115/67 36.6 ??C (97.8 ??F) Oral 70 18 97 % 1.638 m (5' 4.5 ) 68.5 kg (151 lb 0.2 oz) None (Room air) Assessments and Risk Scores: Cardiac WDL: WDL Pain Score: 5 - Moderate pain Cognitive/Neuro/Behavioral WDL: WDL Chavez Fall Risk Score: (!) 45 Emilio Score: 21 DASA Score (1-3=low, 4-5=mod, 6-7=high risk): 0 Does the patient appear to lack capacity to make the decision to leave AND is physically capable ofleaving: No Patient Lines/Drains/Airways Status Active LDAs Name Placement date Placement time Site Days PICC 06/01/24 Left Cephalic Double Lumen 06/01/24 -- Left Cephalic less than 1 Orders: Activity as tolerated Critical Lab (within the last 2 hours): Special Considerations: Highest activity/mobility achieved this shift: transfer with difficulty bilat lower ext weakness ED RN Contact Number: * Consult to H&P - Lea Horne MD - 06/01/2024 4:28 PM EST History and Physical/ED Consult CONSULTS REQUESTED BY: Yovany Khan MD REASON FOR CONSULT: Gross hematuria CHIEF COMPLAINT: Gross hematuria HISTORY OF PRESENT ILLNESS: History obtained from: Patient, Partner, and Medical Record Dorothy Vázquez is a 63 year old female with history of MDD, anxiety, high cholesterol, and syncopepresenting with gross hematuria, dysuria, suprapubic discomfort, and bilateral leg pain/weakness. Patient was recently hospitalized at [facility] for Streptococcus intermedius bacteremia secondary to L [...] Surgical History: No Surgical History Home Medications: atorvastatin (LIPITOR) 40 mg tablet, TAKE ONE TABLET (40 MG TOTAL) BY MOUTH 1 (ONE) TIME EACH DAY FOR CHOLESTEROL clonazePAM (KlonoPIN) 0.5 mg tablet, Take 0.5 mg by mouth 3 times a day. dextroamphetamine-amphetamine (ADDERALL) 30 mg tablet, Take 1 tablet by mouth 2 times a day. DULoxetine DR (CYMBALTA) 60 mg capsule, Take 120 mg by mouth daily. lamoTRIgine (LaMICtal) 200 mg tablet, Take 200 mg by mouth 2 times a day. mirtazapine (REMERON) 15 mg tablet, Take 15 mg by mouth nightly. propranoloL (INDERAL) 10 mg tablet, Allergies: Ampicillin Cephalexin Penicillin G Potassium Social History: Tobacco Use Smoking status: Never Smokeless tobacco: Never Substance Use Topics Alcohol use: Never Drug use: Never Family History: History reviewed. [...] soft, nondistended. Mild suprapubic discomfort : No huff catheter in place Back: Negative CVA tenderness [...] the ordering or responsible provider via the [facility] system on 06/01/2024 5:05 PM. Receipt of this communication by the responsible provider will be documented in Match Actionable Findings upon receiving acknowledgement if applicable, Message ID [id number]. If this radiology report contains a blank impression section, it is an incomplete radiology report. Please contact the interpreting radiologist or applicable radiology division as soon as possible to obtain the completed interpretation. Workstation ID: [id number] Assessment & Plan Active Problems: No Active Problems: There are no active problems currently on the Problem List. Please update the Problem List and refresh. A: 63 year old female with pmh MDD, anxiety, high cholesterol, and syncope, presenting with gross hematuria x 1 day, dysuria, and suprapubic discomfort. Patient recently hospitalized at [facility] where she had IR drainage of a [...] an anticoagulant and bladder deconditioning/dehydration after long hospitalstay. P: After discussion with attending Dr. Salgado, the recommendations are as follows: - No acute urologic interventions - No indication for huff catheter - Increase hydration - Okay to [...] professionals, when not separately reported Signature: TERRY Wraner MD PGY2 Electronic Signature Cosigned by Kirsty Salgado MD at 06/02/2024 7:36 AM EST Associated attestation - Kirsty Salgado MD - 06/02/2024 7:36 AM EST I reviewed the case with the resident but did not see the patient. I agree with the assessment and plan as documented in the resident's note. * Plan of Care - Hollie Brizuela - 06/01/2024 3:41 PM EST Case Management Note: High risk score of 0 Pertinent Clinical impacting hospitalization. PA / Level of Care Change, if applicable: Chart reviewed [facility] listed as prime SOC 06/01/24 at 1105 pt presented to ED from home with hematuria ED work up on going at this time Patient Assessment: PMHX includes anxiety depression HLD syncope recent admission at [facility] after being found have Streptococcus intermedius bacteremia likely secondary to left abdominal muscle abscess status post IR guided drainage, discharged on PO and IV antibiotics, also found to have PE/DVT discharged on Eliquis Phone call received from [facility] liaison stating they are active with pt however family having difficulty managing as pt having difficulty ambulating / IV antibiotic medication they are requesting rehab upon hospital DC. Attempted to meet pt at the bedside she is CANDICE CM to follow 415 pm met with pt and spouse Patrick at the bedside Confirmed home address on file Pt states since DC home from OSH stay pt has had difficulty ambulating increased pain and unsteady. Pt lives with spouse [address] multilevel pt is staying on the 1st floor, 1/2 bath on the 1st floor. Needing assist of family and also rolling walker. Pt unable to ambulate up stairs to full bath or her bedroom. Prior to OSH admit pt was indep using no DME and working. Pt and spouse requesting ref to [facility]. CM reviewedIRF vs SNF Provided with SNF choice list if IRF not able. At this time pt not medically cleared she is undergoing ER work up. CT pending Supports, HCP, Designated Caregiver, Guardian: Patrick Vázquez Spouse [phone] Initial Discharge Planning: Choice list (with star ratings) provided / discussed, if indicated (Y or NA): Y Clinical update sent to [facility] active for PT services Pt is also active with [facility] for home IV antibx CM to follow hospital course for DCP/needs * ED Continuation of Care - Yovany Khan MD - 06/01/2024 3:16 PM EST ED Continuation of Care 06/01/24 3:16 PM Sign out 63-year-old female with history of MDD, recent admission at [facility] after being found have Streptococcus intermedius bacteremia [...] she had while she was hospitalized at [facility]. This morning started having some suprapubic discomfort, [...] was voiding on her own so no huff placed UA with hematuria Urine is still [...] the hospital ED Course as of 06/01/24 1808 TueJun 01, 2024 1222 ED Attending Note 63 y/o female with recent [facility] admission who presents with difficulty urinating and lower abd pain/suprapubic pain this AM, dysuria and hematuria. Patient bacteremic at [facility]. Also had PE/DVT on eliquis during the visit. Discharged 2 days ago. [CM] 1301 Patient was able to spontaneously void on her own. Given this, will defer 3-way huff at this time. [AP] 1729 CT AP [...] MD [MB] Yovany Khan MD Dorothy Garcia [facility] : 1960 CSN: [id number] Cosigned by Cleveland Napoles MD at 06/11/2024 8:49 AM EST Associated attestation - Cleveland Napoles MD - 06/11/2024 8:49 AM EST Attending to Resident/Fellow - I saw and evaluated the patient that I received in signout from the prior attending. I discussed the case with the previous attending, and discussed the plan with the resident(s)/fellow(s) and agree with the findings and plan as documented by the resident(s)/fellow(s). Alston elements, clarifications and/or exceptions are noted by me. Dorothy Vázquez : 1960 CSN: [id number] documented in this encounter Plan of Treatment Upcoming Encounters Date Type Department Care Team (Late st Contact Info) Description 07/11/2024 9:00 AM EDT Follow-Up [facility] [address] [place] [id number] Inspecting Supervisor: Herman Michael MD [address] [place] [address] Infectious Diseases [place], [place] [id number] Pending Results Name Type Priority Associated Diagnoses Date /Time [facility] Comprehensive Myositis Panel Lab Routine 06/04/2024 3:44 AM EST Scheduled Orders Name Type Priority Associated Diagnoses Orde r Schedule [facility] Comprehensive Myositis Panel Lab Routine 5 AM Round for 1 Occurrences starting 06/04/2024 until 06/04/2024 Iron Saturation Lab Timed until discontinued, 1 completed Ferritin Lab Timed 06/04/2024 unt il discontinued, 1 completed documented as of this encounter Procedures * Due to [place] state law, this organization might not be sharing negative HIV tests. Procedure Name Priority Date/Time Associated Diagnosis Comments CBC AUTO DIFFERENTIAL Routine 06/08/2024 5:49 AM EST MAGNESIUM Routine 06/08/2024 5:49 AM EST BASIC METABOLIC PANEL Routine 06/08/2024 5:49 AM EST [facility] IV GAS CHARGER PICC Routine 3:55 PM EST SEDIMENTATION RATE, AUTOMATED STAT 06/07/2024 3:14 PM EST C-REACTIVE PROTEIN STAT 06/07/2024 3: 14 PM EST XR PELVIS 3+ VW Routine 06/07/2024 1:42 PM EST CBC AUTO DIFFERENTIAL Routine 06/07/2024 5:31 AM EST MAGNESIUM Routine 06/07/2024 5:31 AM EST BASIC METABOLIC PANEL Routine 06/07/2024 5:31 AM EST CBC AUTO DIFFERENTIAL Routine 06/06/2024 7:13 AM EST MAGNESIUM Routine 06/06/2024 7:13 AM EST BASIC METABOLIC PANEL Routine 06/06/2024 7:13 AM EST MRI BRAIN W WO CONTRAST STAT 06/06/19 7:00 AM EST MRI (MSK) PELVIS W WO CONTRAST STAT 06/06/2024 6:[address] CHEST W CONTRAST Routine 06/05/2024 1 2:39 PM EST POCT GLUCOSE Routine 06/05/2024 11:20 AM EST TRANSTHORACIC ECHO (TTE) COMPLETE W/ BUBBLE Routine 06/05/2024 9:39 AM EST POCT GLUCOSE Routine 06/05/2024 7:49 AM EST EXTRA TUBES Routine 06/05/2024 4:52 AM EST RED TOP Routine 06/05/2024 4:52 AM EST NGS MPN CORE DIAGNOSTIC PANEL Routine 06/05/2024 3:49 AM EST VITAMIN B12 Routine 06/05/2024 3:49 AM EST CBC AUTO DIFFERENTIAL Routine 06/05/2024 3:49 AM EST IMMUNOGLOBULINS PANEL (IGG, IGA, IGM) Routine 06/05/2024 3:49 AM EST MAGNESIUM Routine 06/05/2024 3:49 AM EST FOLATE Routine 06/05/2024 3:49 AM EST VITAMIN B12 Routine 06/05/2024 3:49 AM EST BASIC METABOLIC PANEL Routine 06/05/2024 3:49 AM EST CBC AUTO DIFFERENTIAL STAT 06/04/2024 10:41 PM EST LACTIC ACID, PLASMA STAT 06/04/2024 1 0:41 PM EST TYPE AND SCREEN STAT 06/04/2024 10:37 PM EST COMPREHENSIVE METABOLIC PANEL STAT 06/04/2024 10:37 PM EST VON [place] FACTOR ANTIGEN Routine 06/04/2024 11:04 AM EST FACTOR 8 RISTOCETIN COFACTOR Routine 06/04/2024 11:04 AM EST CBC AUTO DIFFERENTIAL Routine 06/04/2024 9:57 AM EST MANUAL DIFFERENTIAL Routine 06/04/2024 9 :57 AM EST IRON, TIBC AND FERRITIN PANEL (5616) Add-On 06/04/2024 3:44 AM EST RAYMOND (SM) ANTIBODY Routine 06/04/2024 3 :44 AM EST IRON SATURATION Add-On 06/04/2024 3:44 AM EST PARANEOPLASTIC ANTIBODY EVALUATION W/REFLEX TO TITER AND LINE BLOT, BASIC Routine 06/04/2024 3:44 AM EST CBC AUTO DIFFERENTIAL Routine 06/04/2024 3:44 AM EST AMADOU SCREEN, IFA, W/REFLEX TO TITER & PATTERN Routine 06/04/2024 3:44 AM EST DNA ANTIBODY, DOUBLE-STRANDED Routine 06/04/2024 3:44 AM EST ALDOLASE Routine 06/04/2024 3:44 AM EST ROLLER STAKER ANTIBODY Routine 06/04/2024 3:44 AM EST VITAMIN D 1,25 DIHYDROXY Routine 06/04/2024 3:44 AM EST MANUAL DIFFERENTIAL Routine 06/04/2024 3 :44 AM EST COMPLEMENT C3 Routine 06/04/2024 3:44 AM EST COMPLEMENT C4 Routine 06/04/2024 3:44 AM EST MAGNESIUM Routine 06/04/2024 3:44 AM EST FERRITIN Add-On 06/04/2024 3:44 AM EST HEPATIC FUNCTION PANEL STAT Add-on 3:44 AM EST BASIC METABOLIC PANEL Routine 06/04/2024 3:44 AM EST SEDIMENTATION RATE, AUTOMATED Routine 06/03/2024 6:19 PM EST RHEUMATOID FACTOR Routine 06/03/2024 6:1 9 PM EST LACTATE DEHYDROGENASE Routine 06/03/2024 6:19 PM EST CBC AUTO DIFFERENTIAL Routine 06/03/2024 11:01 AM EST C-REACTIVE PROTEIN Add-On 06/03/2024 11 :01 AM EST MAGNESIUM Routine 06/03/2024 11:01 AM EST BASIC METABOLIC PANEL Routine 06/03/2024 11:01 AM EST MRI CERVICAL [...] W CONTRAST STAT 06/01/2024 4:23 PM EST EXTRA TUBES Routine 06/01/2024 1:24 PM EST YELLOW TOP Routine 06/01/2024 1:24 PM EST CBC AUTO DIFFERENTIAL STAT 06/01/2024 1:01 PM EST TYPE AND SCREEN STAT 06/01/2024 1:01 PM EST BASIC METABOLIC PANEL STAT 06/01/2024 1:01 PM EST URINALYSIS W/REFLEX TO MICROSCOPIC & CULTURE Routine 06/01/2024 11:09 AM EST JJ TOP, URN Routine 06/01/2024 11:09 AM EST UA/CULTURE REFLEX Routine 06/01/2024 11: 09 AM EST documented in this encounter Results * Due to [place] state law, this organization might not be sharing negative HIV tests. * Magnesium (06/08/2024 5:49 AM EST) MG 1.9 1.6 - 2.4 mg/dL 06/08/2024 6:27 AM EST [facility] Blood Structure of peripheral vein / Unknown Venipuncture / Unknown 06/08/2024 5:49 AM EST 06/08/2024 5:58 AM EST us Eliazar Morgan MD LAB BLOOD ORDERABLES Final Res ult [employer] [facility] [address] [place] [address], * (ABNORMAL) Basic metabolic panel (06/08/2024 5:49 AM EST) NA 142 135 - 145 mmol/L 06/08/2024 6:27 AM EST [facility] K 3.7 3.5 - 5.3 mmol/L 06/08/2024 6:27 AM EST [facility] Cl 103 98 - 107 mmol/L 06/08/2024 6:27 AM EST [facility] CO2 31 22 - 32 mmol/L 06/08/2024 6:27 AM EST [facility] BUN 9 7 - 23 mg/dL 06/08/2024 6:27 AM EST [facility] Creatinine 0.61 0.50 - 1.20 mg/dL 06/08/2024 6:27 AM EST [facility] Glucose 118(H) 65 - 99 mg/dL 06/08/2024 6:27 AM EST [facility] Calcium 8.5(L) 8.6 - 10.5 mg/dL 06/08/2024 6:27 AM EST [facility] Anion Gap 8 5 - 15 06/08/2024 6:27 AM EST [facility] eGFR >90 >=60 mL/min/1. 73m2 06/08/2024 6:27 AM EST [facility] Comment:The estimated glomer ular filtration rate (eGFR) [...] MD LAB BLOOD ORDERABLES Final Res ult [facility] [address] [place] [id number], * (ABNORMAL) CBC Auto Differential (06/08/2024 5:49 AM EST) WBC 8.0 3.8 - 10.8 10*3/uL 06/08/2024 6:08 AM EST [facility] RBC 3.01(L) 3.80 - 5.10 10*6/uL 06/08/2024 6:08 AM EST [facility] Hemoglobin 8.4(L) 11.7 - 15.5 g/dL 06/08/2024 6:08 AM EST [facility] Hematocrit 26.3(L) 35.0 - 45.0 % 06/08/2024 6:08 AM EST [facility] MCV 87.4 80.0 - 100.0 fL 06/08/2024 6:08 AM EST [facility] MCH 27.9 27.0 - 33.0 pg 06/08/2024 6:08 AM EST [facility] MCHC 31.9(L) 32.0 - 36.0 g/dL 06/08/2024 6:08 AM EST [facility] RDW 13.8 11.0 - 15.0 % 06/08/2024 6:08 AM EST [facility] Platelets 678(H) 140 - 400 10*3/uL 06/08/2024 6:08 AM EST [facility] MPV 8.6 7.5 - 12.5 fL 06/08/2024 6:08 AM EST [facility] Neutrophil % 49.8 % 06/08/2024 6:08 AM EST [facility] Immature Grans % 0.4 0.0 - 0.9 % 06/08/2024 6:08 AM EST [facility] Lymphocyte % 31.3 % 06/08/2024 6:08 AM EST [facility] Monocyte % 13.7 % 06/08/2024 6:08 AM EST [facility] Eosinophil % 3.9 % 06/08/2024 6:08 AM EST [facility] Basophil % 0.9 % 06/08/2024 6:08 AM EST [facility] Neutrophil # 3.96 1.50 - 7.80 10*3/uL 06/08/2024 6:08 AM EST [facility] Immature Grans # 0.03 <=0.03 10*3/uL 06/08/2024 6:08 AM EST [facility] Lymphocyte # 2.50 0.85 - 3.90 10*3/uL 06/08/2024 6:08 AM EST [facility] Monocyte # 1.10(H) 0.20 - 0.95 10*3/uL 06/08/2024 6:08 AM EST [facility] Eosinophil # 0.30 0.02 - 0.50 10*3/uL 06/08/2024 6:08 AM EST [facility] Basophil # 0.10 0.00 - 0.20 10*3/uL 06/08/2024 6:08 AM EST [facility] nRBC % 0.0 /100 WBCs 06/08/2024 6:08 AM EST [facility] nRBC # <0.01 <0.01 10*3/uL 06/08/2024 6:08 AM EST [facility] Blood Structure of peripheral vein / Unknown Venipuncture / Unknown 06/08/2024 5:49 AM EST 06/08/2024 5:58 AM EST us Eliazar Morgan MD LAB BLOOD ORDERABLES Final Res ult Performing Organization Address City/State/[facility] Co de Phone Number [facility] [address] [place] [address], [place] * OPERATIONS COORDINATOR PICC and Midline (06/07/2024 3:55 PM EST) Narrative Eliazar Hammond RN - 06/07/2024 3:55 PM EST Eliazar Hammond RN ? 06/07/2024 ??3:56 PM PICC line insertion Date/Time: 06/07/2024 3:55 PM Performed by: Eliazar Hammond RN Provider type: External RN Vendor ??Reason for Insertion: intravenous antibiotics ?Successful placement: yes ?? [place] Protocol ??Patient identity confirmed: ??Name and MRN [...] ??Catheter securement device Device Details ??Catheter Type: ??[email or web address] PowerPICC Sherlock ECG Tip ??Catheter Lumens: ??Single lumen ??Catheter Size (fr): ??4 ??Lot #: ??[id number] ??Catheter Total Length (cm): ??38 ??Catheter External Length (cm): ??0 Post-Procedure Central Line Bundle ??Guidewire Removal Confirmed?: Yes ?All Ports Capped?: Yes ?Verification of Line Placement: ??ECG guidance system ??Dressing Applied: Antimicrobial Post-Procedure Details ??Patient tolerance of procedure: ??Tolerated well, no immediate complications ??Significant events: ??None ??Plan: ??PICC line ready for immediate use ??Handoff Report Given to: ??Zoe Pires RN us Eliazar Morgan MD IV THERAPY ORDERABLES Final Re sult * (ABNORMAL) C-reactive protein (06/07/2024 3:14 PM EST) C Reactive Protein 29.3(H) <=9.9 mg/L 06/07/2024 3:59 PM EST [facility] Blood Structure of peripheral vein / Unknown Venipuncture / Unknown 06/07/2024 3:14 PM EST 06/07/2024 3:23 PM EST us Eliazar Morgan MD LAB BLOOD ORDERABLES Final Res ult Performing Organization Address [facility] Co de Phone Number [facility] [address] [place] [address], * (ABNORMAL) Sedimentation Rate (06/07/2024 3:14 PM EST) Sed Rate 60(H) <30 mm/Hr mm/Hr 06/07/2024 3:32 PM EST [facility] Blood Structure of peripheral vein / Unknown Venipuncture / Unknown 06/07/2024 3:14 PM EST 06/07/2024 3:23 PM EST Eliazar Morgan MD LAB BLOOD ORDERABLES Final Res ult Performing Organization Address [facility] de Phone Number [facility]ITALEdkimoLA[facility] [address] [place] [address], * X-Ray Pelvis 3+ Views (06/07/2024 1:42 [...] obtain the completed interpretation. ? Workstation ID: [id number] Narrative 06/07/2024 5:18 PM EST COMPARISON: MRI of the pelvis from 06/06/2024. Resulting Agency Comment [id number] Procedure Note Eliazar Nieves MD - 06/07/2024 [...] possible to obtain thecompleted interpretation. Workstation ID: [id number] us Eliazar Morgan MD IMG XR PROCEDURES Final Result * Magnesium (06/07/2024 5:31 AM EST) MG 2.1 1.6 - 2.4 mg/dL 06/07/2024 6:23 AM EST [facility] Blood Structure of peripheral vein / Unknown Venipuncture / Unknown 06/07/2024 5:31 AM EST 06/07/2024 5:51 AM EST us Eliazar Morgan MD LAB BLOOD ORDERABLES Final Res ult [facility] [address] [place] [id number], * (ABNORMAL) Basic metabolic panel (06/07/2024 5:31 AM EST) NA 140 135 - 145 mmol/L 06/07/2024 6:23 AM EST [facility] K 4.3 3.5 - 5.3 mmol/L 06/07/2024 6:23 AM EST [facility] Cl 102 98 - 107 mmol/L 06/07/2024 6:23 AM EST [facility] CO2 30 22 - 32 mmol/L 06/07/2024 6:23 AM EST [facility] BUN 9 7 - 23 mg/dL 06/07/2024 6:23 AM EST [facility] Creatinine 0.58 0.50 - 1.20 mg/dL 06/07/2024 6:23 AM EST [facility] Glucose 100(H) 65 - 99 mg/dL 06/07/2024 6:23 AM EST [facility] Calcium 9.0 8.6 - 10.5 mg/dL 06/07/2024 6:23 AM EST [facility] Anion Gap 8 5 - 15 06/07/2024 6:23 AM EST [facility] eGFR >90 >=60 mL/min/1. 73m2 06/07/2024 6:23 AM EST [facility] Comment:The estimated glomer ular filtration rate (eGFR) [...] vein / Unknown Venipuncture / Unknown 06/07/2024 5:31 AM EST 06/07/2024 5:51 AM EST us Eliazar Morgan MD LAB BLOOD ORDERABLES Final Res ult [facility] [address] [place] [address], * (ABNORMAL) CBC Auto Differential (06/07/2024 5:31 AM EST) WBC 7.1 3.8 - 10.8 10*3/uL 06/07/2024 6:04 AM EST [facility] RBC 3.14(L) 3.80 - 5.10 10*6/uL 06/07/2024 6:04 AM EST [facility] Hemoglobin 8.7(L) 11.7 - 15.5 g/dL 06/07/2024 6:04 AM EST [facility] Hematocrit 27.6(L) 35.0 - 45.0 % 06/07/2024 6:04 AM EST [facility] MCV 87.9 80.0 - 100.0 fL 06/07/2024 6:04 AM EST [facility] MCH 27.7 27.0 - 33.0 pg 06/07/2024 6:04 AM EST [facility] MCHC 31.5(L) 32.0 - 36.0 g/dL 06/07/2024 6:04 AM EST [facility] RDW 13.9 11.0 - 15.0 % 06/07/2024 6:04 AM EST [facility] Platelets 749(H) 140 - 400 10*3/uL 06/07/2024 6:04 AM EST [facility] MPV 8.6 7.5 - 12.5 fL 06/07/2024 6:04 AM EST [facility] Neutrophil % 45.2 % 06/07/2024 6:04 AM EST [facility] Immature Grans % 0.3 0.0 - 0.9 % 06/07/2024 6:04 AM EST [facility] Lymphocyte % 38.1 % 06/07/2024 6:04 AM EST [facility] Monocyte % 12.2 % 06/07/2024 6:04 AM EST [facility] Eosinophil % 3.1 % 06/07/2024 6:04 AM EST [facility] Basophil % 1.1 % 06/07/2024 6:04 AM EST [facility] Neutrophil # 3.22 1.50 - 7.80 10*3/uL 06/07/2024 6:04 AM EST [facility] Immature Grans # <0.03 <=0.03 10*3/uL 06/07/2024 6:04 AM EST [facility] Lymphocyte # 2.70 0.85 - 3.90 10*3/uL 06/07/2024 6:04 AM EST [facility] Monocyte # 0.90 0.20 - 0.95 10*3/uL 06/07/2024 6:04 AM EST [facility] Eosinophil # 0.20 0.02 - 0.50 10*3/uL 06/07/2024 6:04 AM EST [facility] Basophil # 0.10 0.00 - 0.20 10*3/uL 06/07/2024 6:04 AM EST [facility] nRBC % 0.0 /100 WBCs 06/07/2024 6:04 AM EST [facility] nRBC # <0.01 <0.01 10*3/uL 06/07/2024 6:04 AM EST [facility] Blood Structure of peripheral vein / Unknown Venipuncture / Unknown 06/07/2024 5:31 AM EST 06/07/2024 5:51 AM EST Eliazar Morgan MD LAB BLOOD ORDERABLES Final Res ult [facility] [address] [place] [address], * Magnesium (06/06/2024 7:13 AM EST) MG 2.3 1.6 - 2.4 mg/dL 06/06/2024 8:01 AM EST [facility] Blood Structure of peripheral vein / Unknown Venipuncture / Unknown 06/06/2024 7:13 AM EST 06/06/2024 7:30 AM EST Eliazar Morgan MD LAB BLOOD ORDERABLES Final Res ult Performing Organization Address [facility] Co de Phone Number [facility] [address] [place] [address], * (ABNORMAL) Basic metabolic panel (06/06/2024 7:13 AM EST) NA 136 135 - 145 mmol/L 06/06/2024 8:04 AM EST [facility] K 4.5 3.5 - 5.3 mmol/L 06/06/2024 8:04 AM EST [facility] Cl 98 98 - 107 mmol/L 06/06/2024 8:04 AM EST [facility] CO2 30 22 - 32 mmol/L 06/06/2024 8:04 AM EST [facility] BUN 10 7 - 23 mg/dL 06/06/2024 8:04 AM EST [facility] Creatinine 0.63 0.50 - 1.20 mg/dL 06/06/2024 8:04 AM EST [facility] Glucose 109(H) 65 - 99 mg/dL 06/06/2024 8:04 AM EST [facility] Calcium 9.1 8.6 - 10.5 mg/dL 06/06/2024 8:04 AM EST [facility] Anion Gap 8 5 - 15 06/06/2024 8:04 AM EST [facility] eGFR >90 >=60 mL/min/1. 73m2 06/06/2024 8:04 AM EST [facility] Comment:The estimated glomer ular filtration rate (eGFR) [...] peripheral vein / Unknown Venipuncture / Unknown 06/06/2024 7:13 AM EST 06/06/2024 7:30 AM EST us Eliazar Morgan MD LAB BLOOD ORDERABLES Final Res ult [facility] [address] [place] [address], * (ABNORMAL) CBC Auto Differential (06/06/2024 7:13 AM EST) WBC 10.0 3.8 - 10.8 10*3/uL 06/06/2024 7:49 AM EST [facility] RBC 3.38(L) 3.80 - 5.10 10*6/uL 06/06/2024 7:49 AM EST [facility] Hemoglobin 9.4(L) 11.7 - 15.5 g/dL 06/06/2024 7:49 AM EST [facility] Hematocrit 30.0(L) 35.0 - 45.0 % 06/06/2024 7:49 AM EST [facility] MCV 88.8 80.0 - 100.0 fL 06/06/2024 7:49 AM EST [facility] MCH 27.8 27.0 - 33.0 pg 06/06/2024 7:49 AM EST [facility] MCHC 31.3(L) 32.0 - 36.0 g/dL 06/06/2024 7:49 AM EST [facility] RDW 13.7 11.0 - 15.0 % 06/06/2024 7:49 AM EST [facility] Platelets 821(H) 140 - 400 10*3/uL 06/06/2024 7:49 AM EST [facility] MPV 8.8 7.5 - 12.5 fL 06/06/2024 7:49 AM EST [facility] Neutrophil % 48.6 % 06/06/2024 7:49 AM EST [facility] Immature Grans % 0.3 0.0 - 0.9 % 06/06/2024 7:49 AM EST [facility] Lymphocyte % 35.1 % 06/06/2024 7:49 AM EST [facility] Monocyte % 13.0 % 06/06/2024 7:49 AM EST [facility] Eosinophil % 2.3 % 06/06/2024 7:49 AM EST [facility] Basophil % 0.7 % 06/06/2024 7:49 AM EST [facility] Neutrophil # 4.85 1.50 - 7.80 10*3/uL 06/06/2024 7:49 AM EST [facility] Immature Grans # 0.03 <=0.03 10*3/uL 06/06/2024 7:49 AM EST [facility] Lymphocyte # 3.50 0.85 - 3.90 10*3/uL 06/06/2024 7:49 AM EST [facility] Monocyte # 1.30(H) 0.20 - 0.95 10*3/uL 06/06/2024 7:49 AM EST [facility] Eosinophil # 0.20 0.02 - 0.50 10*3/uL 06/06/2024 7:49 AM EST [facility] Basophil # 0.10 0.00 - 0.20 10*3/uL 06/06/2024 7:49 AM EST [facility] nRBC % 0.0 /100 WBCs 06/06/2024 7:49 AM EST [facility] nRBC # <0.01 <0.01 10*3/uL 06/06/2024 7:49 AM EST [facility] Blood Structure of peripheral vein / Unknown Venipuncture / Unknown 06/06/2024 7:13 AM EST 06/06/2024 7:30 AM EST us Eliazar Morgan MD LAB BLOOD ORDERABLES Final Res ult [facility] [address] [place] [address], * MRI Brain with and without Contrast [...] obtain the completed interpretation. ? Workstation ID: [id number] Narrative 06/06/2024 9:51 AM EST EXAMINATION: MRI [...] procedure. ??Correlate with history. Resulting Agency Comment [id number] Procedure Note Jose A Padilla MD - [...] possible to obtain thecompleted interpretation. Workstation ID: [id number] us Chelsea Salinas MD IMG MRI PROCEDURES Final Result * MRI ([facility]K) [...] within the left adductor brevis muscle. A(n) [place] actionable finding has been communicated to the ordering or responsible provider via the [facility] system on 06/06/2024 9:29 AM. ??Receipt of this communication by the responsible provider will be documented in [facility] upon receiving acknowledgement if applicable, Message ID [id number]. I, Eliazar Nieves, have reviewed the examination and concur with the findings as reported or so edited. Trainee: ??Rosa Maria Morales If this radiology report contains a blank impression section, it is an incomplete radiology report. ??Please contact the interpreting radiologist or applicable radiology division as soon as possible to obtain the completed interpretation. ? Workstation ID: [id number] Narrative 06/06/2024 9:29 AM EST INDICATION: ??To [...] neurovascular structures appears unremarkable. Resulting Agency Comment [id number] Procedure Note Eliazar Nieves MD - 06/06/2024 [...] largest within the leftadductor brevis muscle. A(n) [place] actionable finding has been communicated to the ordering orresponsible provider via the [facility] system on06/06/2024 9:29 AM. Receipt of this communication by the responsibleprovider will be documented in [facility] uponreceiving acknowledgement if applicable, Message ID [id number]. I, Eliazar Nieves, have reviewed the examination and concur with the findings asreported or so edited. Trainee: Rosa Maria Morales If this radiology report contains a blank impression section, it is anincomplete radiology report. Please contact the interpreting radiologistor applicable radiology division as soon as possible to obtain thecompleted interpretation. Workstation ID: [id number] Chelsea Salinas MD IM MRI PROCEDURES Final [...] the ordering or responsible provider via the [facility] system on 06/05/2024 1:18 PM. ??Receipt of this communication by the responsible provider will be documented in [facility] upon receiving acknowledgement if applicable, Message ID [id number]. If this radiology report contains a blank impression section, it is an incomplete radiology report. ??Please contact the interpreting radiologist or applicable radiology division as soon as possible to obtain the completed interpretation. ? Workstation ID: [id number] Up-to-date CT equipment and radiation dose reduction [...] change in the spine. Resulting Agency Comment [id number] us Eliazar Morgan MD IMAndrea CT PROCEDURES Edited Resul t - Final * (ABNORMAL) POCT Glucose, interfaced (06/05/2024 11:20 AM EST) Glucose, POCT 130(H) 70 - 99 mg/dL 06/05/2024 11:32 AM EST [facility] Comment: The him manager has not determined the efficacy of this test in Critically ill patients. ??[facility] defines Critically ill patients for the purpose [...] POCT ORDERABLES - DEVICE F inal Result [facility] [address] [place] [address], * TRANSTHORACIC ECHO (TTE) COMPLETE W/ BUBBLE [...] 2D 70 % Global longitudinal strain -18.2 [facility] RV TISSUE DOPPLER S' 15.4 cm/s Ascending [...] Doppler. Myocardial deformation imaging was performed using [employer] [place]. During the study the apical, parasternal, subcostal and suprasternal view was captured. Overall the study quality was adequate. Prior Study No prior study available for comparison. STRESS ECHO OVERALL FINDINGS No significant valvular disease identified. Bin Fairchild MD CV ECHO PROCEDURES Final Resul t * (ABNORMAL) POCT Glucose, interfaced (06/05/2024 7:49 AM EST) [facility] Glucose, POCT 111(H) 70 - 99 mg/dL 06/05/2024 8:01 AM EST [facility] Comment: The him manager has not determined the efficacy of this test in Critically ill patients. ??[facility] defines Critically ill patients for the purpose [...] confirmed with lab-based glucose values. Blood 06/05/2024 7:49 AM EST 06/05/2024 8:01 AM EST us Eliazar Morgan MD LAB POCT ORDERABLES - DEVICE F inal Result [facility] [address] [place] [address], [place] * Red Top (06/05/2024 4:52 AM EST) Extra Tube Hold for add-ons. 06/05/2024 9:06 AM EST [facility] Comment:Auto resulted. Blood Structure of peripheral vein / Unknown 06/05/2024 4:52 AM EST 06/05/2024 4:52 AM EST Eliazar Morgan MD LAB BLOOD ORDERABLES Final Res ult Performing Organization Address City/[facility]/ZIP Co de Phone Number [facility] [address] [place] [address], [place] * Folate (06/05/2024 3:49 AM EST) Pathologist [facility] Folate 15.5 4.8 - 24.2 ng/mL 06/05/2024 5:39 AM EST [facility] Blood Implantable venous catheter submitted as specimen / Unknown Venipuncture / Unknown 06/05/2024 3:49 AM EST 06/05/2024 4:20 AM EST Eliazar Morgan MD LAB BLOOD ORDERABLES Final Res ult Performing Organization Address [facility] Co de Phone Number [facility] [address] [place] [address], [place] * (ABNORMAL) Vitamin B12 (06/05/2024 3:49 AM EST) Pathologist [facility] Vitamin B12 1,249(H) 232 - 1,245 pg/mL 06/05/2024 5:39 AM EST [facility] Blood Implantable venous catheter submitted as specimen / Unknown Venipuncture / Unknown 06/05/2024 3:49 AM EST 06/05/2024 4:20 AM EST Eliazar Morgan MD LAB BLOOD ORDERABLES Final Res ult [facility] [address] [place] [address], * Magnesium (06/05/2024 3:49 AM EST) MG 1.8 1.6 - 2.4 mg/dL 06/05/2024 5:39 AM EST [employer] Blood Implantable venous catheter submitted as specimen / Unknown Venipuncture / Unknown 06/05/2024 3:49 AM EST 06/05/2024 4:20 AM EST us Eliazar Morgan MD LAB BLOOD ORDERABLES Final Res ult [facility] [address] [place] [address], * (ABNORMAL) Basic metabolic panel (06/05/2024 3:49 AM EST) NA 137 135 - 145 mmol/L 06/05/2024 5:39 AM EST [facility] K 3.7 3.5 - 5.3 mmol/L 06/05/2024 5:39 AM EST [facility] Cl 99 98 - 107 mmol/L 06/05/2024 5:39 AM EST [facility] CO2 27 22 - 32 mmol/L 06/05/2024 5:39 AM EST [facility] BUN 7 7 - 23 mg/dL 06/05/2024 5:39 AM EST [facility] Creatinine 0.62 0.50 - 1.20 mg/dL 06/05/2024 5:39 AM EST [facility] Glucose 122(H) 65 - 99 mg/dL 06/05/2024 5:39 AM EST [facility] Calcium 9.0 8.6 - 10.5 mg/dL 06/05/2024 5:39 AM EST [facility] Anion Gap 11 5 - 15 06/05/2024 5:39 AM EST [facility] eGFR >90 >=60 mL/min/1. 73m2 06/05/2024 5:39 AM EST [facility] Comment:The estimated glomer ular filtration rate (eGFR) [...] Race in Diagnosing Kidney Disease . Blood Implantable venous catheter submitted as specimen / Unknown Venipuncture / Unknown 06/05/2024 3:49 AM EST 06/05/2024 4:20 AM EST us Eliazar Morgan MD LAB BLOOD ORDERABLES Final Res ult [facility] [address] [place] [address], * (ABNORMAL) CBC Auto Differential (06/05/2024 3:49 AM EST) WBC 9.5 3.8 - 10.8 10*3/uL 06/05/2024 4:28 AM EST [facility] RBC 3.30(L) 3.80 - 5.10 10*6/uL 06/05/2024 4:28 AM EST [facility] Hemoglobin 9.2(L) 11.7 - 15.5 g/dL 06/05/2024 4:28 AM EST [facility] Hematocrit 28.8(L) 35.0 - 45.0 % 06/05/2024 4:28 AM EST [facility] MCV 87.3 80.0 - 100.0 fL 06/05/2024 4:28 AM EST [facility] MCH 27.9 27.0 - 33.0 pg 06/05/2024 4:28 AM EST [facility] MCHC 31.9(L) 32.0 - 36.0 g/dL 06/05/2024 4:28 AM EST [facility] RDW 13.8 11.0 - 15.0 % 06/05/2024 4:28 AM EST [facility] Platelets 830(H) 140 - 400 10*3/uL 06/05/2024 4:28 AM EST [facility] MPV 8.6 7.5 - 12.5 fL 06/05/2024 4:28 AM EST [facility] Neutrophil % 52.7 % 06/05/2024 4:28 AM EST [facility] Immature Grans % 0.3 0.0 - 0.9 % 06/05/2024 4:28 AM EST [facility] Lymphocyte % 32.3 % 06/05/2024 4:28 AM EST [facility] Monocyte % 12.2 % 06/05/2024 4:28 AM EST [facility] Eosinophil % 1.8 % 06/05/2024 4:28 AM EST [facility] Basophil % 0.7 % 06/05/2024 4:28 AM EST [facility] Neutrophil # 4.98 1.50 - 7.80 10*3/uL 06/05/2024 4:28 AM EST [facility] Immature Grans # 0.03 <=0.03 10*3/uL 06/05/2024 4:28 AM EST [facility] Lymphocyte # 3.10 0.85 - 3.90 10*3/uL 06/05/2024 4:28 AM EST [facility] Monocyte # 1.20(H) 0.20 - 0.95 10*3/uL 06/05/2024 4:28 AM EST [facility] Eosinophil # 0.20 0.02 - 0.50 10*3/uL 06/05/2024 4:28 AM EST [facility] Basophil # 0.10 0.00 - 0.20 10*3/uL 06/05/2024 4:28 AM EST [facility] nRBC % 0.0 /100 WBCs 06/05/2024 4:28 AM EST [facility] nRBC # <0.01 <0.01 10*3/uL 06/05/2024 4:28 AM EST [facility] Blood Implantable venous catheter submitted as specimen / Unknown Venipuncture / Unknown 06/05/2024 3:49 AM EST 06/05/2024 4:20 AM EST us Eliazar Morgan MD LAB BLOOD ORDERABLES Final Res ult [employer] [employer] [facility] [address] [place] [address], * MPN Core Diagnostic Panel (JAK2, CALR, MPL) (06/05/2024 3:49 AM EST) Specimens Specimen Number: [id number] Specimen Type: Blood Specimen Source: Venous, Peripheral Linked Case: N/A Collection/Procedur e Date: 06/05/2024 Specimen Description: N/A [facility] MANUAL 5 4:46 PM EST [facility] JAK2 [id number] Mutation Not Detected Not Detected, See Comments [facility] MANUAL 5 4:46 PM EST [facility] CALR EXON 9 Mutation Not Detected Not Detected, See Comments [facility] MANUAL 5 4:46 PM EST [facility] JAK2 EXON 12 Mutation Not Detected Not Detected, See Comments [facility] MANUAL 5 4:46 PM EST [facility] MPL EXON 10 Mutation Not Detected Not Detected, See Comments [facility] MANUAL 5 4:46 PM EST [facility] Interpretation A negative result does NOT [...] in the context of other clinical findings. [facility] MANUAL 5 4:46 PM EST [facility] Clinical History Obturator Abcess, unknown etiology [facility] MANUAL 5 4:46 PM EST [facility] Test Description Intended Use: The Press Ampliseq Custom Panel is designed to detect [...] bead. Sequencing template was loaded onto an Oktopost next generation sequencer and data was analyzed using [employer] Variant Caller and Kickplay Gene software packages using [id number]_2 (Anatoly HG19) as the reference sequence. ION Ampliseq Custom Panel JAK2(V617F) [id number] MPL CALR Contact lab for detail of gene exon/hotspot codons covered in the assay. DNA sequences used as references for this panel of genes can be found at: http://www.ncbi.nlm .nih.gov/refseq/rsg / The mutation nomenclature is based on the convention recommended by the Human Genome Variation Society (http://www.hgvs.or g/mutnomen/). Speech Professor: When appropriate multiplex PCR amplification of 5 [...] is >500X. When appropriate, mutations detected by [employer] sequencing were confirmed as follows. Patient DNA was analyzed using real time PCR. Specific primer sets were used to amplify the gene region of interest and PCR the amplicons were digested with ExoSAP. DNA products were purified from the Partlow sequencing reaction and analyzed using capillary gel [...] variant when testing the tumor component alone. [facility] MANUAL 5 4:46 PM EST [facility] ANAT[facility] PATHOLOG[facility] LAB[facility]AT[facility] References 1. Meg et al. COSMIC: mining complete cancer genomes in the Catalogue of Somatic Mutations in Cancer (COSMIC) Nucleic Acids Research, 2011; 39:945-50. COSMIC Website:http://canc er.jermaine.ac.uk/cos lb 2. Ramona STOUT et al. dbSNP: the NCBI database of genetic variation. Nucleic Acids Res. 2000Apr 25;29(1):308-11. Available from: http://www.ncbi.nlm .nih.gov/SNP/ 3. Zuri [...] molecular comparisons. Leukemia. 2014 Azeem;28(7):1472-7. doi: 10.1038/keiry.2014.3. [facility] MANUAL 5 4:46 PM EST [facility] AN[facility] PATHOLOG[facility] LAB[facility]AT[facility] ASR Disclaimer These tests were [...] other gene mutations not included in the CoreFlow AmpliSeq Myeloid Custom Panel v3. False positive or negative results may occur for reasons that include blood transfusions, a somatic mutation or single nucleotide polymorphism (SNP) at or near the primer binding sites or involvement of a target gene in a chromosome translocation. Moreover, negative results do not preclude the presence of mutations below detection limits of the assay. [facility] MANUAL 5 4:46 PM EST [facility] LAB[facility] Signature . [facility] MANUAL 5 4:46 PM EST [facility] Blood Structure of peripheral vein / Unknown Venipuncture / Unknown 06/05/2024 3:49 AM EST 06/05/2024 4:07 AM EST Eliazar Morgan MD LAB MOLECULAR ORDERABLES Final Result [facility] [address] [place] [id number], * Immunoglobulins Panel (IgG, IgA, IgM) (06/05/2024 3:49 AM EST) Immunoglobulin A 164 70 - 320 mg/dL 06/05/2024 5:11 PM EST [facility] IgG, Serum 1474 600 - 1540 mg/dL 06/05/2024 5:11 PM EST [facility] [place] [facility] Immunoglobulin M 176 50 - 300 mg/dL 06/05/2024 5:11 PM EST [facility] Blood Implantable venous catheter submitted as specimen / Unknown Venipuncture / Unknown 06/05/2024 3:49 AM EST 06/05/2024 4:20 AM EST Narrative [facility] - 06/05/2024 5:11 PM EST [facility] Received Date:[id number] Eliazar Morgan MD LAB BLOOD ORDERABLES Final Res ult [facility] [address], [place] [address], [place] [phone] [facility] [address], [place] [address], [place] [phone] * Lactic Acid, Plasma (06/04/2024 10:41 PM EST) Lactic Acid 1.1 0.5 - 1.9 mmol/L 06/04/2024 11:18 PM EST [facility] Comment: Sepsis Screening: Initial Lactate Level >2.0 mmol/L - Repeat Lactate Level within 3 hours. Initial Lactate Level >4.0 mmol/L - Repeat Lactate Level within 3 hours, Initiate Septic Shock Protocol. Blood Structure of peripheral vein / Unknown Venipuncture / Unknown 06/04/2024 10:41 PM EST 06/04/2024 10:50 PM EST us Marco Antonio STEWART LAB BLOOD ORDERABLES Final Res ult [facility] [address] [place] [address], [place] * (ABNORMAL) CBC Auto Differential (06/04/2024 10:41 PM EST) WBC 10.7 3.8 - 10.8 10*3/uL 06/04/2024 10:51 PM EST [facility] RBC 3.19(L) 3.80 - 5.10 10*6/uL 06/04/2024 10:51 PM EST [facility] Hemoglobin 9.1(L) 11.7 - 15.5 g/dL 06/04/2024 10:51 PM EST [facility] Hematocrit 27.7(L) 35.0 - 45.0 % 06/04/2024 10:51 PM EST [facility] MCV 86.8 80.0 - 100.0 fL 06/04/2024 10:51 PM EST [facility] MCH 28.5 27.0 - 33.0 pg 06/04/2024 10:51 PM EST [facility] MCHC 32.9 32.0 - 36.0 g/dL 06/04/2024 10:51 PM EST [facility] RDW 13.7 11.0 - 15.0 % 06/04/2024 10:51 PM EST [facility] Platelets 803(H) 140 - 400 10*3/uL 06/04/2024 10:51 PM EST [facility] MPV 8.6 7.5 - 12.5 fL 06/04/2024 10:51 PM EST [facility] Neutrophil % 64.4 % 06/04/2024 10:51 PM EST [facility] Immature Grans % 0.5 0.0 - 0.9 % 06/04/2024 10:51 PM EST [facility] Lymphocyte % 21.3 % 06/04/2024 10:51 PM EST [facility] Monocyte % 11.4 % 06/04/2024 10:51 PM EST [facility] Eosinophil % 1.6 % 06/04/2024 10:51 PM EST [facility] Basophil % 0.8 % 06/04/2024 10:51 PM EST [facility] Neutrophil # 6.86 1.50 - 7.80 10*3/uL 06/04/2024 10:51 PM EST [facility] Immature Grans # 0.05(H) <=0.03 10*3/uL 06/04/2024 10:51 PM EST [facility] Lymphocyte # 2.30 0.85 - 3.90 10*3/uL 06/04/2024 10:51 PM EST [facility] Monocyte # 1.20(H) 0.20 - 0.95 10*3/uL 06/04/2024 10:51 PM EST [facility] Eosinophil # 0.20 0.02 - 0.50 10*3/uL 06/04/2024 10:51 PM EST [facility] Basophil # 0.10 0.00 - 0.20 10*3/uL 06/04/2024 10:51 PM EST [facility] nRBC % 0.0 /100 WBCs 06/04/2024 10:51 PM EST [facility] nRBC # <0.01 <0.01 10*3/uL 06/04/2024 10:51 PM EST [facility] Blood Structure of peripheral vein / Unknown Venipuncture / Unknown 06/04/2024 10:41 PM EST 06/04/2024 10:45 PM EST Marco Antonio STEWART LAB BLOOD ORDERABLES Final Res ult [facility] [address] [place] [address], * Type and screen (06/04/2024 10:37 PM EST) ABO Blood Type O 06/04/2024 11:40 PM [...] Edited Result - Final Performing Organization Address City/[facility]/ZIP Co de Phone Number [facility] [address] [place] [address], * (ABNORMAL) Comprehensive metabolic panel (06/04/2024 10:37 PM EST) NA 136 135 - 145 mmol/L 06/04/2024 11:13 PM EST [facility] K 4.0 3.5 - 5.3 mmol/L 06/04/2024 11:13 PM EST [facility] Cl 98 98 - 107 mmol/L 06/04/2024 11:13 PM EST [facility] CO2 28 22 - 32 mmol/L 06/04/2024 11:13 PM EST [facility] Anion Gap 10 5 - 15 06/04/2024 11:13 PM EST [facility] Glucose 115(H) 65 - 99 mg/dL 06/04/2024 11:13 PM EST [facility] Creatinine 0.64 0.50 - 1.20 mg/dL 06/04/2024 11:13 PM EST [facility] Calcium 9.1 8.6 - 10.5 mg/dL 06/04/2024 11:13 PM [facility] Total Protein 7.1 6.0 - 8.0 g/dL 06/04/2024 11:13 PM EST [facility] Albumin 3.2(L) 3.5 - 5.2 g/dL 06/04/2024 11:13 PM EST [facility] Bilirubin, Total 0.3 0.2 - 1.2 mg/dL 06/04/2024 11:13 PM EST [facility] Alkaline Phosphatase 132(H) 35 - 129 U/L 06/04/2024 11:13 PM [facility] AST 19 10 - 40 U/L 06/04/2024 11:13 PM EST [facility] ALT 9(L) 10 - 40 U/L 06/04/2024 11:13 PM EST [facility] BUN 8 7 - 23 mg/dL 06/04/2024 11:13 PM [facility] eGFR >90 >=60 mL/min/1. 73m2 06/04/2024 11:13 PM [facility] Comment:The estimated glomer ular filtration rate (eGFR) is calculated using a new formula developed by the NKF-ASN task force to eliminate race-based correction factors. The new formula uses serum/plasma creatinine, age, and gender to determine eGFR. A value below 60mls/min might indicate kidney disease and will be flagged. For additional information, see Lia valentino al, Am J Kidney Dis. 2021;79(2):268- 288, A Unifying Approach for GFR estimation: Recommendations of the NKF-ASN Task Force on Reassessing the Inclusion of Race in Diagnosing Kidney Disease . Globulin, Total 3.9 2.1 - 4.2 g/dL 06/04/2024 11:13 PM EST [facility] A/G Ratio 0.8(L) 1.5 - 3.0 06/04/2024 11:13 PM EST [facility] Blood Structure of peripheral vein / Unknown Venipuncture / Unknown 06/04/2024 10:37 PM EST 06/04/2024 10:44 PM EST Marco Antonio STEWART LAB BLOOD ORDERABLES Final Res ult [facility] [address] [place] [address], * Von Willebrand Antigen (06/04/2024 11:04 AM EST) Von Willebrand Factor Antigen 111 50 - 217 % 06/06/2024 1:04 PM EST [facility]) Blood Structure of peripheral vein / Unknown Venipuncture / Unknown 06/04/2024 11:04 AM EST 06/04/2024 11:14 AM EST Narrative [facility] - 06/06/2024 1:04 PM EST [facility] Received Date: Eliazar Morgan MD LAB BLOOD ORDERABLES Final Res ult [facility] ([facility]) [address] [place], [place] , [place] * Factor 8 Ristocetin Cofactor (06/04/2024 11:04 AM EST) Ristocetin Cofactor 68 42 - 200 % normal 06/07/2024 3:08 PM EST [facility] ([facility]) Blood Structure of peripheral vein / Unknown Venipuncture / Unknown 06/04/2024 11:04 AM EST 06/04/2024 11:14 AM EST Narrative [facility] - 06/07/2024 3:08 PM EST [facility] Received Date: us Eliazar Morgan MD LAB BLOOD ORDERABLES Final Res ult [facility] ADAM) [address] [place], [place] , [place] * (ABNORMAL) Manual Differential (06/04/2024 9:57 AM EST) Neutrophil %, Manual 67 % 06/04/2024 11:00 AM EST [facility] Band % 1 0 - 7 % 06/04/2024 11:00 AM EST [facility] Lymphocyte %, Manual 18 % 06/04/2024 11:00 AM EST [facility] Monocyte %, Manual 9 % 06/04/2024 11:00 AM EST [facility] Eosinophil %, Manual 0 % 06/04/2024 11:00 AM EST [facility] Basophil %, Manual 1 % 06/04/2024 11:00 AM EST [facility] Reactive Lymphocyte % 4 0 - 6 % 06/04/2024 11:00 AM EST [facility] Total Neutrophil #, Manual 6.94 1.50 - 7.80 10*3/uL 06/04/2024 11:00 AM EST [facility] Bands #,Manual 0.10 10*3/uL 06/04/2024 11:00 AM EST [facility] Total Lymph #, Manual 2.24 0.85 - 3.90 10*3/uL 06/04/2024 11:00 AM EST [facility] Monocyte #, Manual 0.92 0.20 - 0.95 10*3/uL 06/04/2024 11:00 AM EST [facility] Eosinophil #, Manual 0.00(L) 0.02 - 0.50 10*3/uL 06/04/2024 11:00 AM EST [facility] Basophil #, Manual 0.10 0.00 - 0.20 10*3/uL 06/04/2024 11:00 AM EST [facility] Reactive Lymphocytes # 0.41 10*3/uL 06/04/2024 11:00 AM EST [facility] Platelet Estimate Increased (A) Adequate 06/04/2024 11:00 AM EST [facility] RBC Morphology Normal Normal, No clinically significant RBC morphology present (ICSH guidelines, 2015). 06/04/2024 11:00 AM EST [facility] Total Cells Counted 114 06/04/2024 11:00 AM EST [facility] Blood Structure of peripheral vein / Unknown Venipuncture / Unknown 06/04/2024 9:57 AM EST 06/04/2024 10:05 AM EST us Chelsea Salinas MD LAB BLOOD ORDERABLES Final Resul t [facility] [address] [place] [address], * (ABNORMAL) CBC Auto Differential (06/04/2024 9:57 AM EST) WBC 10.2 3.8 - 10.8 10*3/uL 06/04/2024 11:00 AM EST [facility] RBC 3.48(L) 3.80 - 5.10 10*6/uL 06/04/2024 11:00 AM EST [facility] Hemoglobin 9.7(L) 11.7 - 15.5 g/dL 06/04/2024 11:00 AM EST [facility] Hematocrit 30.7(L) 35.0 - 45.0 % 06/04/2024 11:00 AM EST [facility] MCV 88.2 80.0 - 100.0 fL 06/04/2024 11:00 AM EST [facility] MCH 27.9 27.0 - 33.0 pg 06/04/2024 11:00 AM EST [facility] MCHC 31.6(L) 32.0 - 36.0 g/dL 06/04/2024 11:00 AM EST [facility] RDW 14.1 11.0 - 15.0 % 06/04/2024 11:00 AM EST [facility] Platelets 813(H) 140 - 400 10*3/uL 06/04/2024 11:00 AM EST [facility] MPV 8.6 7.5 - 12.5 fL 06/04/2024 11:00 AM EST [facility] nRBC % 0.0 /100 WBCs 06/04/2024 11:00 AM EST [facility] nRBC # <0.01 <0.01 10*3/uL 06/04/2024 11:00 AM EST [facility] Blood Structure of peripheral vein / Unknown Venipuncture / Unknown 06/04/2024 9:57 AM EST 06/04/2024 10:05 AM EST us Chelsea Salinas MD LAB BLOOD ORDERABLES Final Resul t [facility] [address] [place] [address], * (ABNORMAL) Hepatic Function Panel (06/04/2024 3:44 AM EST) Total Protein 8.2(H) 6.0 - 8.0 g/dL 06/04/2024 10:11 AM EST [facility] Albumin 3.7 3.5 - 5.2 g/dL 06/04/2024 10:11 AM EST [facility] Globulin, Total 4.5(H) 2.1 - 4.2 g/dL 06/04/2024 10:11 AM EST [facility] Bilirubin, Total 0.4 0.2 - 1.2 mg/dL 06/04/2024 10:11 AM EST [facility] Bilirubin, Direct 0.2 <=0.4 mg/dL 06/04/2024 10:11 AM EST [facility] Alkaline Phosphatase 163(H) 35 - 129 U/L 06/04/2024 10:11 AM EST [facility] AST 22 10 - 40 U/L 06/04/2024 10:11 AM EST [facility] ALT 12 10 - 40 U/L 06/04/2024 10:11 AM EST [facility] Bilirubin, Indirect 0.20 <=0.70 mg/dL 06/04/2024 10:11 AM EST [facility] A/G Ratio 0.8(L) 1.5 - 3.0 06/04/2024 10:11 AM EST [facility] Blood Structure of peripheral vein / Unknown Venipuncture / Unknown 06/04/2024 3:44 AM EST 06/04/2024 4:03 AM EST us Eliazar Morgan MD LAB BLOOD ORDERABLES Final Res ult [facility] [address] [place] [address], * (ABNORMAL) Ferritin (06/04/2024 3:44 AM EST) Ferritin 451.0(H) 11.0 - 306.0 ng/mL 06/04/2024 8:48 AM EST [facility] Blood Structure of peripheral vein / Unknown Venipuncture / Unknown 06/04/2024 3:44 AM EST 06/04/2024 4:03 AM EST us Chelsea Salinas MD LAB BLOOD ORDERABLES Final Resul t [facility] [address] [place] [address], * (ABNORMAL) Iron Saturation (06/04/2024 3:44 AM EST) Iron Saturation 11(L) 20 - 50 % 8:48 AM EST [facility] Iron 26(L) 30 - 160 ug/dL 06/04/2024 8:48 AM EST [facility] Transferrin 192(L) 200 - 360 mg/dL 06/04/2024 8:48 AM EST [facility] Total Iron Binding Capacity 240(L) 255 - 450 ug/dL 06/04/2024 8:48 AM EST [facility] Blood Structure of peripheral vein / Unknown Venipuncture / Unknown 06/04/2024 3:44 AM EST 06/04/2024 4:03 AM EST us Chelsea Salinas MD LAB BLOOD ORDERABLES Final Resul t [facility] [address] [place] [address], * (ABNORMAL) Manual Differential (06/04/2024 3:44 AM EST) Neutrophil %, Manual 49 % 06/04/2024 4:42 AM EST [facility] Lymphocyte %, Manual 40 % 06/04/2024 4:42 AM EST [facility] Monocyte %, Manual 9 % 06/04/2024 4:42 AM EST [facility] Eosinophil %, Manual 0 % 06/04/2024 4:42 AM EST [facility] Basophil %, Manual 1 % 06/04/2024 4:42 AM EST [facility] Reactive Lymphocyte % 1 0 - 6 % 06/04/2024 4:42 AM EST [facility] Total Neutrophil #, Manual 5.68 1.50 - 7.80 10*3/uL 06/04/2024 4:42 AM EST [facility] Total Lymph #, Manual 4.76(H) 0.85 - 3.90 10*3/uL 06/04/2024 4:42 AM EST [facility] Monocyte #, Manual 1.04(H) 0.20 - 0.95 10*3/uL 06/04/2024 4:42 AM EST [facility] Eosinophil #, Manual 0.00(L) 0.02 - 0.50 10*3/uL 06/04/2024 4:42 AM EST [facility] Basophil #, Manual 0.12 0.00 - 0.20 10*3/uL 06/04/2024 4:42 AM EST [facility] Reactive Lymphocytes # 0.12 10*3/uL 06/04/2024 4:42 AM EST [facility] Platelet Estimate Increased (A) Adequate 06/04/2024 4:42 AM EST [facility] RBC Morphology Normal Normal, No clinically significant RBC morphology present (ICSH guidelines, 2015). 06/04/2024 4:42 AM EST [facility] Total Cells Counted 114 06/04/2024 4:42 AM EST [facility] Blood Structure of peripheral vein / Unknown Venipuncture / Unknown 06/04/2024 3:44 AM EST 06/04/2024 4:03 AM EST us Eliazar Morgan MD LAB BLOOD ORDERABLES Final Res ult [facility] [address] [place] [address], * Magnesium (06/04/2024 3:44 AM EST) MG 2.0 1.6 - 2.4 mg/dL 06/04/2024 4:32 AM EST [facility] Blood Structure of peripheral vein / Unknown Venipuncture / Unknown 06/04/2024 3:44 AM EST 06/04/2024 4:03 AM EST us Eliazar Morgan MD LAB BLOOD ORDERABLES Final Res ult [facility] [address] [place] [address], [place] * (ABNORMAL) Basic metabolic panel (06/04/2024 3:44 AM EST) NA 138 135 - 145 mmol/L 06/04/2024 4:32 AM EST [facility] K 4.0 3.5 - 5.3 mmol/L 06/04/2024 4:32 AM EST [facility] Cl 99 98 - 107 mmol/L 06/04/2024 4:32 AM EST [facility] CO2 26 22 - 32 mmol/L 06/04/2024 4:32 AM EST [facility] BUN 10 7 - 23 mg/dL 06/04/2024 4:32 AM EST [facility] Creatinine 0.71 0.50 - 1.20 mg/dL 06/04/2024 4:32 AM EST [facility] Glucose 186(H) 65 - 99 mg/dL 06/04/2024 4:32 AM EST [facility] Calcium 9.5 8.6 - 10.5 mg/dL 06/04/2024 4:32 AM EST [facility] Anion Gap 13 5 - 15 06/04/2024 4:32 AM EST [facility] eGFR >90 >=60 mL/min/1. 73m2 06/04/2024 4:32 AM EST [facility] Comment:The estimated glomer ular filtration rate (eGFR) [...] AM EST 06/04/2024 4:03 AM EST us Eliazar Morgan MD LAB BLOOD ORDERABLES Final Res ult [facility] [address] [place] [address], [place] * (ABNORMAL) CBC Auto Differential (06/04/2024 3:44 AM EST) WBC 11.6(H) 3.8 - 10.8 10*3/uL 06/04/2024 4:56 AM EST [facility] RBC 3.81 3.80 - 5.10 10*6/uL 06/04/2024 4:56 AM EST [facility] Hemoglobin 10.3(L) 11.7 - 15.5 g/dL 06/04/2024 4:56 AM EST [facility] Hematocrit 32.7(L) 35.0 - 45.0 % 06/04/2024 4:56 AM EST [facility] MCV 85.8 80.0 - 100.0 fL 06/04/2024 4:56 AM EST [facility] MCH 27.0 27.0 - 33.0 pg 06/04/2024 4:56 AM EST [facility] MCHC 31.5(L) 32.0 - 36.0 g/dL 06/04/2024 4:56 AM EST [facility] RDW 14.0 11.0 - 15.0 % 06/04/2024 4:56 AM EST [facility] Platelets 1,166(HH) 140 - 400 10*3/uL 06/04/2024 4:56 AM EST [facility] MPV 8.5 7.5 - 12.5 fL 06/04/2024 4:56 AM EST [facility] nRBC % 0.0 /100 WBCs 06/04/2024 4:56 AM EST [facility] nRBC # <0.01 <0.01 10*3/uL 06/04/2024 4:56 AM EST [facility] Blood Structure of peripheral vein / Unknown Venipuncture / Unknown 06/04/2024 3:44 AM EST 06/04/2024 4:03 AM EST us Eliazar Morgan MD LAB BLOOD ORDERABLES Final Res ult [facility] [address] [place] [address], * (ABNORMAL) Complement C3 (06/04/2024 3:44 AM EST) Complement Component C3C 248(H) 83 - 193 mg/dL 06/05/2024 2:15 PM EST [facility] Blood Structure of peripheral vein / Unknown Venipuncture / Unknown 06/04/2024 3:44 AM EST 06/04/2024 4:02 AM EST Narrative [facility] 06/05/2024 2:15 PM EST [facility] Received Date: Chelsea Salinas MD LAB BLOOD ORDERABLES Final Resul t [address]rd Floor, [place] [address], [place] [phone] [facility] [address] [facility] [address] [facility], [place] [address], [place] [phone] * Complement C4 (06/04/2024 3:44 AM EST) Complement Component C4C 42 15 - 57 mg/dL 06/05/2024 2:15 PM EST [facility] Blood Structure of peripheral vein / Unknown Venipuncture / Unknown 06/04/2024 3:44 AM EST 06/04/2024 4:02 AM EST Narrative [facility] [place] - 06/05/2024 2:15 PM EST [facility] Received Date:[id number] us Chelsea Salinas MD LAB BLOOD ORDERABLES Final Resul t Performing Organization Address City/[facility]/ZIP Co de Phone Number [facility] [address], [place] [address], [place] [phone] [facility] [address], [place] [address], [place] [phone] * ROLLER STAKER Antibody (06/04/2024 3:44 AM EST) ROLLER STAKER Antibody <1.0 NEG <1.0 NEG AI 06/07/2024 7:07 AM EST [facility] Blood Structure of peripheral vein / Unknown Venipuncture / Unknown 06/04/2024 3:44 AM EST 06/04/2024 4:02 AM EST Narrative [facility] [place] - 06/07/2024 7:07 AM EST [facility] Received Date:[id number] us Chelsea Salinas MD LAB BLOOD ORDERABLES Final Resul t [facility] [address], [place] [address], [place] [phone] [facility] [address], [place] [address], [place] [phone] * Raymond (SM) Antibody (06/04/2024 3:44 AM EST) Pathologist [facility] Sm Antibody <1.0 NEG <1.0 NEG AI 06/04/2024 2:23 PM EST [facility] Blood Structure of peripheral vein / Unknown Venipuncture / Unknown 06/04/2024 3:44 AM EST 06/04/2024 4:03 AM EST [facility]ative [facility] 06/04/2024 2:23 PM EST [facility] Received Date: Chelsea Salinas MD LAB BLOOD ORDERABLES Final Resul t [facility] [address] [facility] 3rd Floor, [place] [address], [facility] [address] [facility] 3rd Floor, [place] [address], * DNA Antibody, Double-stranded (06/04/2024 3:44 AM EST) [facility] DNA (Ds) Antibody <1 IU/mL 025 7:07 AM EST [facility] Comment: ? IU/mL ? Interpretation ? < or = 4 ?Negative ? 5-9 ? Indeterminate ? > or = 10 ?? Positive Blood Structure of peripheral vein / Unknown Venipuncture / Unknown 06/04/2024 3:44 AM EST 06/04/2024 4:02 AM EST Narrative [facility] 06/07/2024 7:07 AM EST [facility] Received Date:[id number] Chelsea Salinas MD LAB BLOOD ORDERABLES Final Resul t [facility] [address] [facility] [address] [facility], [place] [address], [facility] [address], [place] [address], [place] [phone] * AMADOU Screen, IFA, w/Reflex to Titer & Pattern (06/04/2024 3:44 AM EST) AMADOU Screen, IFA NEGATIVE NEGATIVE 9:35 AM EST [facility] [employer] [facility] Comment: AMADOU IFA is a first line [...] AC-0: Negative International Consensus on AMADOU Patterns (https://doi.org/10.1515/vtwe-0166-9646) For additional information, please refer to http://education.Vero Analytics/faq/WVN658 (This link is being provided for informational/ educational purposes only.) ?? Blood Structure of peripheral vein / Unknown Venipuncture / Unknown 06/04/2024 3:44 AM EST 06/04/2024 4:02 AM EST Narrative [facility] 06/08/2024 9:35 AM EST [facility] Received Date: Chelsea Salinas MD LAB BLOOD ORDERABLES Final Resul t [facility] [address] [facility] [address] [facility], [place] [address], [place] [phone] [facility] [address], [place] [address], * Paraneoplastic Antibody Evaluation w/Reflex to Titer and Line Blot, Basic, Serum (06/04/2024 3:44 AM EST) Tissue IFA Observation(s) SEE NOTE 06/14/2024 3:40 AM EST [facility] Comment: Staining of HEp2 cells suggests nuclear non-neuronal specific antibodies are present. ?? No fluorescence observed on neuronal tissue. ANNA1 (HU) Ab, IFA NEGATIVE NEGATIVE 2024 3:40 AM EST [facility] ANNA2 (RI) AB, IFA NEGATIVE NEGATIVE 2024 3:40 AM EST [facility] ANNA3 AB, IFA NEGATIVE NEGATIVE 06/14/2024 3:40 AM EST [facility] PCA1 (YO) AB, IFA NEGATIVE NEGATIVE 025 3:40 AM EST [facility] PCA2 Ab, IFA NEGATIVE NEGATIVE 06/14/2024 3:40 AM EST [facility] [facility] SODA CLERK TR (DNER) Ab, IFA NEGATIVE NEGATIVE 06/14/2024 3:40 AM EST [facility] AGNA/SOX1 Ab, IFA NEGATIVE NEGATIVE 025 3:40 AM EST [facility] Amphiphysin Ab, IFA NEGATIVE NEGATIVE 06/14/2024 3:40 AM EST [facility] CRMP5/CV2 AB, IFA NEGATIVE NEGATIVE 025 3:40 AM EST [facility] Comment: The absence of detectable anti-neuronal autoantibodies in this test does not exclude an idiopathic or paraneoplastic autoimmune neurological disorder. Additional testing, including cell-based assays for antibodies to surface antigens, may be indicated. Testing using both CSF and serum increases sensitivity for detection. For additional information, please refer to https://www.Workec.QuantiSense/dur775 (This link is being provided for informational/educational purposes only.) This test was developed and its analytical performance characteristics have been determined by [facility]. It has not been cleared or approved by FDA. This assay has been validated pursuant to the CLIA regulations and is used for clinical purposes. Striated Muscle Ab Screen NEGATIVE NEGATIVE 06/14/2024 3:40 AM EST [facility] Comment: This test was developed and its analytical performance characteristics have been determined by [facility]. It has not been cleared or approved by FDA. This assay has been validated pursuant to the CLIA regulations and is used for clinical purposes. Voltage Gated Calcium Channel (VGCC) Type P/Q Ab <30 <30 pmol/L 06/14/2024 3:40 AM EST [facility] Voltage Gated Potassium Channel (VGKC) Ab <80 <80 pmol/L 06/14/2024 3:40 AM EST [facility] Comment: This test was developed and its analytical performance characteristics have been determined by [employer]. It has not been cleared or approved by FDA. This assay has been validated pursuant to the CLIA regulations and is used for clinical purposes. Acetylcholine Receptor Ganglionic (Alpha 3) Ab <55 <55 pmol/L 06/14/2024 3:40 AM EST [facility] Comment: Reference Ranges for Acetylcholine Receptor Ganglionic Antibody: Negative: ?? <55 pmol/L Borderline: 55-160 pmol/L Positive: ?? >160 pmol/L This test was developed and its analytical performance characteristics have been determined by [facility]. It has not been cleared or approved by FDA. This assay has been validated pursuant to the CLIA regulations and is used for clinical purposes. Voltage Gated Calcium Channel (VGCC) Type N Ab <54 <54 pmol/L 06/14/2024 3:40 AM EST [facility] Comment: This test was developed and its analytical performance characteristics have been determined by [facility]. It has not been cleared or approved by FDA. This assay has been validated pursuant to the CLIA regulations and is used for clinical purposes. Acetylcholine Receptor Binding Antibody <0.30 nmol/L 06/14/2024 3:40 AM EST [facility] Comment: Reference Ranges for Acetylcholine Receptor ??Binding Antibody: Negative: < or =0.30 nmol/L Equivocal: ??0.31-0.49 nmol/L Positive: > or =0.50 nmol/L Blood Structure of peripheral vein / Unknown Venipuncture / Unknown 06/04/2024 3:44 AM EST 06/04/2024 4:03 AM EST Narrative [facility] - 06/14/2024 3:40 AM EST [facility] Received Date: us Chelsea Salinas MD LAB BLOOD ORDERABLES Final Resul t [facility] [address] [facility] 3rd Floor, [place] [address], [place] [phone] [facility] [address] [place] [address], * (ABNORMAL) Vitamin D 1,25 Dihydroxy (06/04/2024 3:44 AM EST) [facility] Vitamin D,1,25 (OH)2,Total 17(L) 18 - 72 pg/mL 06/07/2024 5:16 PM EST [facility] [employer] ([place]) Vitamin D3, 1,25 (OH)2 17 pg/mL 06/07/2024 5:16 PM EST [employer] ([place]) Vitamin D2, 1,25 (OH)2 <8 pg/mL 06/07/2024 5:16 PM EST [employer] ([place]) Comment: Vitamin D3, 1,25(OH)2 indicates both endogenous production and supplementation. Vitamin D2, 1,25(OH)2 is an indicator of exogenous sources, such as diet or supplementation. ??Interpretation and therapy are based on measurement of Vitamin D,1,25(OH)2, Total. This test was developed and its analytical performance characteristics have been determined by [employer] [facility], [place], [place]. It has not been cleared or approved by the FDA. This assay has been validated pursuant to the CLIA regulations and is used for clinical purposes. Blood Structure of peripheral vein / Unknown Venipuncture / Unknown 06/04/2024 3:44 AM EST 06/04/2024 4:02 AM EST Narrative [facility] - 06/07/2024 5:16 PM EST [facility] Received Date:[id number] Chelsea Salinas MD LAB BLOOD ORDERABLES Final Resul t Performing Organization Address [facility] de Phone Number [facility] [address], [place] [address], [employer]) [address] [place], [place] , [place] * Aldolase (06/04/2024 3:44 AM EST) Aldolase 4.7 <=8.1 U/L 06/08/2024 2:5 8 AM EST [employer] ([employer]) Blood Structure of peripheral vein / Unknown Venipuncture / Unknown 06/04/2024 3:44 AM EST 06/04/2024 4:02 AM EST Narrative [facility] - 06/08/2024 2:58 AM EST [facility] Received Date:[id number] Chelsea Salinas MD LAB BLOOD ORDERABLES Final Resul t Performing Organization Address [facility] de Phone Number [facility] [address], [place] [address], [employer]) [address] [place], [place] , [place] * Lactate dehydrogenase (06/03/2024 6:19 PM EST) LDH 188 135 - 225 U/L 06/03/2024 7:06 PM EST [facility] Blood Implantable venous catheter submitted as specimen / Unknown Venipuncture / Unknown 06/03/2024 6:19 PM EST 06/03/2024 6:36 PM EST Chelsea Salinas MD LAB BLOOD ORDERABLES Final Resul t Performing Organization Address City/[facility] Co de Phone Number [facility] LABORATORY [address] [place] [address] * (ABNORMAL) Sedimentation Rate (06/03/2024 6:19 PM EST) Sed Rate 84(H) <30 mm/Hr mm/Hr 06/03/2024 6:54 PM EST [facility]imo[facility] Blood Implantable venous catheter submitted as specimen / Unknown Venipuncture / Unknown 06/03/2024 6:19 PM EST 06/03/2024 6:36 PM EST Chelsea Salinas MD LAB BLOOD ORDERABLES Final Resul t Performing Organization Address [facility] Co de Phone Number [facility]MAEdkimoLA[facility] [address] [place] [address], * Rheumatoid Factor (06/03/2024 6:19 PM EST) Rheumatoid Factor <10 <14 IU/mL 06/04/2024 5:10 PM EST [facility] Blood Implantable venous catheter submitted as specimen / Unknown Venipuncture / Unknown 06/03/2024 6:19 PM EST 06/03/2024 6:36 PM EST Narrative [facility] [place] - 06/04/2024 5:10 PM EST [facility] Received Date:[id number] Chelsea Salinas MD LAB BLOOD ORDERABLES Final Resul t [facility] [place] [address] [facility] 3rd Floor, [place] [address], [place] [phone] [facility] [address] [facility] 3rd Floor, [place] [address], [place] [phone] * (ABNORMAL) C-reactive protein (06/03/2024 11:01 AM EST) Pathologist [facility] C Reactive Protein 59.2(H) <=9.9 mg/L 06/03/2024 4:06 PM EST [facility] Blood Implantable venous catheter submitted as specimen / Unknown Venipuncture / Unknown 06/03/2024 11:01 AM EST 06/03/2024 11:12 AM EST us Chelsea Salinas MD LAB BLOOD ORDERABLES Final Resul t Performing Organization Address [facility] Co de Phone Number [facility] [address] [place] [address], [place] * Magnesium (06/03/2024 11:01 AM EST) Pathologist [facility] MG 2.0 1.6 - 2.4 mg/dL 06/03/2024 11:40 AM EST [facility] Blood Implantable venous catheter submitted as specimen / Unknown Venipuncture / Unknown 06/03/2024 11:01 AM EST 06/03/2024 11:12 AM EST us Eliazar Morgan MD LAB BLOOD ORDERABLES Final Res ult Performing Organization Address [facility] Co de Phone Number [facility] [address] [place] [address], * (ABNORMAL) Basic metabolic panel (06/03/2024 11:01 AM EST) Pathologist [facility] NA 137 135 - 145 mmol/L 06/03/2024 11:40 AM EST [facility] K 4.3 3.5 - 5.3 mmol/L 06/03/2024 11:40 AM EST [facility] Cl 98 98 - 107 mmol/L 06/03/2024 11:40 AM EST [facility] CO2 26 22 - 32 mmol/L 06/03/2024 11:40 AM EST [facility] BUN 11 7 - 23 mg/dL 06/03/2024 11:40 AM EST [facility] Creatinine 0.73 0.50 - 1.20 mg/dL 06/03/2024 11:40 AM EST [facility]ITALEdkimoLA[facility]HE[facility] Glucose 118(H) 65 - 99 mg/dL 06/03/2024 11:40 AM EST [facility]ITALImmediatelyIN [facility] Calcium 9.5 8.6 - 10.5 mg/dL 06/03/2024 11:40 AM EST [facility]ENTERTurtle Creek ApparelIN [facility] Anion Gap 13 5 - 15 06/03/2024 11:40 AM EST [facility] CENTERPiximLAKEHE[facility] eGFR >90 >=60 mL/min/1. 73m2 06/03/2024 11:40 AM EST [facility] LAB[facility] Comment:The estimated glomer ular filtration rate (eGFR) [...] Race in Diagnosing Kidney Disease . Blood Implantable venous catheter submitted as specimen / Unknown Venipuncture / Unknown 06/03/2024 11:01 AM EST 06/03/2024 11:12 AM EST us Eliazar Morgan MD LAB BLOOD ORDERABLES Final Res ult [facility] [address] [place] [address], * (ABNORMAL) CBC Auto Differential (06/03/2024 11:01 AM EST) WBC 11.3(H) 3.8 - 10.8 10*3/uL 06/03/2024 11:18 AM EST [facility] CL[facility] PATHOLOG[facility] LABORATORY RBC 3.59(L) 3.80 - 5.10 10*6/uL 06/03/2024 11:18 AM EST [facility] Hemoglobin 10.1(L) 11.7 - 15.5 g/dL 06/03/2024 11:18 AM EST [facility] Hematocrit 31.2(L) 35.0 - 45.0 % 06/03/2024 11:18 AM EST [facility] MCV 86.9 80.0 - 100.0 fL 06/03/2024 11:18 AM EST [facility] MCH 28.1 27.0 - 33.0 pg 06/03/2024 11:18 AM EST [facility] MCHC 32.4 32.0 - 36.0 g/dL 06/03/2024 11:18 AM EST [facility] RDW 14.0 11.0 - 15.0 % 06/03/2024 11:18 AM EST [facility] Platelets 805(H) 140 - 400 10*3/uL 06/03/2024 11:18 AM EST [facility] MPV 8.5 7.5 - 12.5 fL 06/03/2024 11:18 AM EST [facility] Neutrophil % 61.3 % 06/03/2024 11:18 AM EST [facility] Immature Grans % 0.4 0.0 - 0.9 % 06/03/2024 11:18 AM EST [facility] Lymphocyte % 26.0 % 06/03/2024 11:18 AM EST [facility] Monocyte % 10.6 % 06/03/2024 11:18 AM EST [facility] Eosinophil % 1.1 % 06/03/2024 11:18 AM EST [facility] Basophil % 0.6 % 06/03/2024 11:18 AM EST [facility] Neutrophil # 6.91 1.50 - 7.80 10*3/uL 06/03/2024 11:18 AM EST [facility] Immature Grans # 0.05(H) <=0.03 10*3/uL 06/03/2024 11:18 AM EST [facility] Lymphocyte # 2.90 0.85 - 3.90 10*3/uL 06/03/2024 11:18 AM EST [facility] Monocyte # 1.20(H) 0.20 - 0.95 10*3/uL 06/03/2024 11:18 AM EST [facility] Eosinophil # 0.10 0.02 - 0.50 10*3/uL 06/03/2024 11:18 AM EST [facility] Basophil # 0.10 0.00 - 0.20 10*3/uL 06/03/2024 11:18 AM EST [facility] nRBC % 0.0 /100 WBCs 06/03/2024 11:18 AM EST [facility] nRBC # <0.01 <0.01 10*3/uL 06/03/2024 11:18 AM EST [facility] Blood Implantable venous catheter submitted as specimen / Unknown Venipuncture / Unknown 06/03/2024 11:01 AM EST 06/03/2024 11:12 AM EST us Eliazar Morgan MD LAB BLOOD ORDERABLES Final Res ult [facility] [address] [place] [address], * MRI Cervical Spine W WO Contrast [...] obtain the completed interpretation. ? Workstation ID: [id number] Narrative 06/03/2024 2:11 PM EST EXAMINATION: MRI [...] recent bacteremia COMPARISON: ??None Resulting Agency Comment [id number] Procedure Note Hollis French MD - 06/03/2024 [...] cervical spine is otherwise preserved. Diffuse low I0biaqce intensity is present of osseous structures. This [...] possible to obtain thecompleted interpretation. Workstation ID: [id number] us Bin Fairchild MD IMG MRI PROCEDURES [...] obtain the completed interpretation. ? Workstation ID: [id number] Narrative 06/03/2024 2:11 PM EST EXAMINATION: MRI [...] recent bacteremia COMPARISON: ??None Resulting Agency Comment [id number] Procedure Note Hollis French MD - 06/03/2024 [...] cervical spine is otherwise preserved. Diffuse low R1whsfmq intensity is present of osseous structures. This [...] possible to obtain thecompleted interpretation. Workstation ID: [id number] Bin Fairchild MD IMG MRI PROCEDURES Final [...] obtain the completed interpretation. ? Workstation ID: [id number] Narrative 06/03/2024 12:03 PM EST INDICATION: Proximal [...] tissues: Within normal limits. Resulting Agency Comment [id number] Procedure Note Reyna Ortiz MD - 06/03/2024 [...] possible to obtain thecompleted interpretation. Workstation ID: [id number] us Bin Fairchild MD IM MRI PROCEDURES Final Resul t * Blood Culture, Peripheral #2 (06/02/2024 4:42 PM EST) Culture No growth after 5 days 06/07/2024 8:51 PM EST [facility] Blood Structure of peripheral vein / Unknown Venipuncture / Unknown 06/02/2024 4:42 PM EST 06/02/2024 4:42 PM EST [facility] - 06/07/2024 8:51 PM EST [facility] Received Date: MICRO NUMBER: [id number] SPECIMEN QUALITY: Adequate SOURCE: BLOOD VENOUS, PERIPHERAL STATUS: FINAL COMMENT: Aerobic and anaerobic bottle received. us Bin Fairchild MD LAB MICROBIOLOGY - GENERAL ORD ERABLES Final Result [facility] [address], [place] [address], [place] [phone] [facility] [facility] [address], [place] [address], [place] [phone] * Blood Culture, Peripheral #1 (06/02/2024 4:42 PM EST) Culture No growth after 5 days 06/07/2024 8:51 PM EST [facility] Blood Structure of peripheral vein / Unknown 06/02/2024 4:42 PM EST 06/02/2024 4:42 PM EST Narrative [facility] - 06/07/2024 8:51 PM EST [facility] Received Date: MICRO NUMBER: [id number] SPECIMEN QUALITY: Adequate SOURCE: BLOOD VENOUS, PERIPHERAL STATUS: FINAL COMMENT: Aerobic and anaerobic bottle received. Bin Fairchild MD LAB MICROBIOLOGY - GENERAL ORD ERABLES Final Result Performing Organization Address City/[facility]/ZIP Co de Phone Number [facility] [address] [facility], [place] [address], [place] [phone] [facility] [employer] [facility] [address], [place] [address], [place] [phone] * (ABNORMAL) Creatine Kinase (06/02/2024 12:03 PM EST) CK 35(L) 38 - 206 U/L 06/02/2024 12:40 PM EST [facility] Blood Structure of peripheral vein / Unknown Venipuncture / Unknown 06/02/2024 12:03 PM EST 06/02/2024 12:11 PM EST Bin Fairchild MD LAB BLOOD ORDERABLES Final Res ult [facility] [address] [place] [address], * TSH Reflex Free T4 (06/02/2024 8:13 AM EST) TSH 2.910 0.280 - 3.890 uIU/mL 06/02/2024 12:39 PM EST [facility] Comment: Females: 1st trimester ? 0.150-4.000 ??IU/mL 2nd trimester ?? 0.310-4.170 ?IU/mL 3rd trimester ?0.380-4.150 ?IU/mL Blood Structure of peripheral vein / Unknown Venipuncture / Unknown 06/02/2024 8:13 AM EST 06/02/2024 8:22 AM EST us Bin Fairchild MD LAB BLOOD ORDERABLES Final Res ult [facility] [address] [place] [address], * (ABNORMAL) CBC (06/02/2024 8:13 AM EST) WBC 11.9(H) 3.8 - 10.8 10*3/uL 06/02/2024 8:29 AM EST [facility] RBC 3.57(L) 3.80 - 5.10 10*6/uL 06/02/2024 8:29 AM EST [facility] Hemoglobin 9.8(L) 11.7 - 15.5 g/dL 06/02/2024 8:29 AM EST [facility] Hematocrit 31.3(L) 35.0 - 45.0 % 06/02/2024 8:29 AM EST [facility] MCV 87.7 80.0 - 100.0 fL 06/02/2024 8:29 AM EST [facility] MCH 27.5 27.0 - 33.0 pg 06/02/2024 8:29 AM EST [facility] MCHC 31.3(L) 32.0 - 36.0 g/dL 06/02/2024 8:29 AM EST [facility] RDW 14.4 11.0 - 15.0 % 06/02/2024 8:29 AM EST [facility] Platelets 739(H) 140 - 400 10*3/uL 06/02/2024 8:29 AM EST [facility] MPV 8.4 7.5 - 12.5 fL 06/02/2024 8:29 AM EST [facility] Blood Structure of peripheral vein / Unknown Venipuncture / Unknown 06/02/2024 8:13 AM EST 06/02/2024 8:22 AM EST us Juma Hernandez MD LAB BLOOD ORDERABLES Final R esult [facility] [address] [place] [address], * (ABNORMAL) Comprehensive Metabolic Panel (06/02/2024 8:13 AM EST) NA 139 135 - 145 mmol/L 06/02/2024 8:56 AM EST [facility] K 4.2 3.5 - 5.3 mmol/L 06/02/2024 8:56 AM EST [facility] Cl 104 98 - 107 mmol/L 06/02/2024 8:56 AM EST [facility] CO2 26 22 - 32 mmol/L 06/02/2024 8:56 AM EST [facility] Anion Gap 9 5 - 15 06/02/2024 8:56 AM EST [facility] Glucose 114(H) 65 - 99 mg/dL 06/02/2024 8:56 AM EST [facility] Creatinine 0.77 0.50 - 1.20 mg/dL 06/02/2024 8:56 AM EST [facility] Calcium 9.0 8.6 - 10.5 mg/dL 06/02/2024 8:56 AM EST [facility] Total Protein 7.3 6.0 - 8.0 g/dL 06/02/2024 8:56 AM EST [facility] Albumin 3.3(L) 3.5 - 5.2 g/dL 06/02/2024 8:56 AM EST [facility] Bilirubin, Total <0.2(L) 0.2 - 1.2 mg/dL 06/02/2024 8:56 AM EST [facility] Alkaline Phosphatase 159(H) 35 - 129 U/L 06/02/2024 8:56 AM EST [facility] AST 19 10 - 40 U/L 06/02/2024 8:56 AM EST [facility] ALT 12 10 - 40 U/L 06/02/2024 8:56 AM EST [facility] BUN 10 7 - 23 mg/dL 06/02/2024 8:56 AM EST [facility] eGFR 88 >=60 mL/min/1 .73m2 06/02/2024 8:56 AM EST [facility] Comment:The estimated glomer ular filtration rate (eGFR) [...] in Diagnosing Kidney Disease . Globulin, Total 4.0 2.1 - 4.2 g/dL 06/02/2024 8:56 AM EST [facility] A/G Ratio 0.8(L) 1.5 - 3.0 06/02/2024 8:56 AM EST [facility] Blood Structure of peripheral vein / Unknown Venipuncture / Unknown 06/02/2024 8:13 AM EST 06/02/2024 8:22 AM EST us Juma Hernandez MD LAB BLOOD ORDERABLES Final R esult [facility] LAB[facility] [address] [place] [address], [place] * CT Abd Pelvis W Contrast (06/01/2024 4:23 PM EST) Anatomical Region Laterality Modality Body Computed Tomogra phy 06/01/2024 4:41 PM EST Addenda Addendum by Mirna Haney MD on 06/01/2024 5:47 PM EST COMMUNICATION: The findings were communicated via [employer] secure chat acknowledged by Dr. Khan at 5:35 PM on 06/01/2024. If this radiology report contains a blank impression section, it is an incomplete radiology report. ??Please contact the interpreting radiologist or applicable radiology division as soon as possible to obtain the completed interpretation. ? Workstation ID: [id number] Impressions 06/01/2024 5:13 PM EST 1. Segmental [...] the ordering or responsible provider via the [employer] Findings system on 06/01/2024 5:05 PM. ??Receipt of this communication by the responsible provider will be documented in [facility] upon receiving acknowledgement if applicable, Message ID [id number]. If this radiology report contains a blank impression section, it is an incomplete radiology report. ??Please contact the interpreting radiologist or applicable radiology division as soon as possible to obtain the completed interpretation. ? Workstation ID: [id number] Narrative 06/01/2024 5:13 PM EST COMPARISON: None [...] (series 201, image 145). Resulting Agency Comment [id number] us Luz Fisher MD IMG CT PROCEDURES Edited Result - Final * Yellow Top (06/01/2024 1:24 PM EST) Extra Tube Hold for add-ons. 06/01/2024 6:05 PM EST [facility] Comment:Auto resulted. Urine Urine specimen collection, clean catch / Unknown 06/01/2024 1:24 PM EST 06/01/2024 1:24 PM EST us Luz Fisher MD LAB BLOOD ORDERABLES Sherly l Result Performing Organization Address City/[facility]/ZIP Co de Phone Number [facility] [address] [place] [address], [place] * Type and Screen (06/01/2024 1:01 PM EST) ABO Blood Type O 06/01/2024 2:15 PM EST [facility] RH Type Positive 06/01/2024 2:15 PM EST [facility] Expiration Date/Time 2024-06-04 23:59 06/01/2024 2:15 PM EST [facility] Antibody Screen Negative 06/01/2024 2:15 PM EST [facility] Blood Structure of peripheral vein / Unknown Venipuncture / Unknown 06/01/2024 1:01 PM EST 06/01/2024 1:27 PM EST us Luz Fisher MD LAB BLOOD BANK TEST ORDER JOAN Edited Result - Final [facility] [address] [place] [address], [place] [phone] * (ABNORMAL) Basic Metabolic Panel (If age 70 or younger) (06/01/2024 1:01 PM EST) NA 137 135 - 145 mmol/L 06/01/2024 2:20 PM EST [facility] K 4.3 3.5 - 5.3 mmol/L 06/01/2024 2:20 PM EST [facility] Cl 100 98 - 107 mmol/L 06/01/2024 2:20 PM EST [facility] CO2 26 22 - 32 mmol/L 06/01/2024 2:20 PM EST [facility] BUN 13 7 - 23 mg/dL 06/01/2024 2:20 PM EST [facility] Creatinine 0.72 0.50 - 1.20 mg/dL 06/01/2024 2:20 PM EST [facility] Glucose 111(H) 65 - 99 mg/dL 06/01/2024 2:20 PM EST [facility] Calcium 9.3 8.6 - 10.5 mg/dL 06/01/2024 2:20 PM EST [facility] Anion Gap 11 5 - 15 06/01/2024 2:20 PM EST [facility] eGFR >90 >=60 mL/min/1. 73m2 06/01/2024 2:20 PM EST [facility] Comment:The estimated glomer ular filtration rate (eGFR) [...] peripheral vein / Unknown Venipuncture / Unknown 06/01/2024 1:01 PM EST 06/01/2024 1:21 PM EST us Luz Fisher MD LAB BLOOD ORDERABLES Sherly nasrin Result [facility] [address] [place] [address], [place] * (ABNORMAL) CBC Auto Differential (06/01/2024 1:01 PM EST) WBC 14.1(H) 3.8 - 10.8 10*3/uL 06/01/2024 1:28 PM EST [facility] RBC 3.69(L) 3.80 - 5.10 10*6/uL 06/01/2024 1:28 PM EST [facility] Hemoglobin 10.2(L) 11.7 - 15.5 g/dL 06/01/2024 1:28 PM EST [facility] Hematocrit 31.6(L) 35.0 - 45.0 % 06/01/2024 1:28 PM EST [facility] MCV 85.6 80.0 - 100.0 fL 06/01/2024 1:28 PM EST [facility] MCH 27.6 27.0 - 33.0 pg 06/01/2024 1:28 PM EST [facility] MCHC 32.3 32.0 - 36.0 g/dL 06/01/2024 1:28 PM EST [facility] RDW 14.4 11.0 - 15.0 % 06/01/2024 1:28 PM EST [facility] Platelets 787(H) 140 - 400 10*3/uL 06/01/2024 1:28 PM EST [facility] MPV 8.6 7.5 - 12.5 fL 06/01/2024 1:28 PM EST [facility] Neutrophil % 69.9 % 06/01/2024 1:28 PM EST [facility] Immature Grans % 0.9 0.0 - 0.9 % 06/01/2024 1:28 PM EST [facility] Lymphocyte % 20.5 % 06/01/2024 1:28 PM EST [facility] Monocyte % 7.5 % 06/01/2024 1:28 PM EST [facility] Eosinophil % 0.8 % 06/01/2024 1:28 PM EST [facility] Basophil % 0.4 % 06/01/2024 1:28 PM EST [facility] Neutrophil # 9.86(H) 1.50 - 7.80 10*3/uL 06/01/2024 1:28 PM EST [facility] Immature Grans # 0.12(H) <=0.03 10*3/uL 06/01/2024 1:28 PM EST [facility] Lymphocyte # 2.90 0.85 - 3.90 10*3/uL 06/01/2024 1:28 PM EST [facility] Monocyte # 1.10(H) 0.20 - 0.95 10*3/uL 06/01/2024 1:28 PM EST [facility] Eosinophil # 0.10 0.02 - 0.50 10*3/uL 06/01/2024 1:28 PM EST [facility] Basophil # 0.10 0.00 - 0.20 10*3/uL 06/01/2024 1:28 PM EST [facility] nRBC % 0.0 /100 WBCs 06/01/2024 1:28 PM EST [facility] nRBC # <0.01 <0.01 10*3/uL 06/01/2024 1:28 PM EST [facility] Blood Structure of peripheral vein / Unknown Venipuncture / Unknown 06/01/2024 1:01 PM EST 06/01/2024 1:21 PM EST Luz Fisher MD LAB BLOOD ORDERABLES Sherly l Result [facility] [address] [place] [address], [place] * Jj Top, Urine (06/01/2024 11:09 AM EST) Pathologist [facility] Extra Tube Hold for add-ons. 06/01/2024 4:05 PM EST [facility] Comment:Auto resulted. Urine Urine specimen collection, clean catch / Unknown Non-Blood Collection / Unknown 06/01/2024 11:09 AM EST 06/01/2024 1:23 PM EST Luz Fisher MD LAB URINE ORDERABLES Sherly l Result Performing Organization Address City/[facility]/ZIP Co de Phone Number [facility] [address] [place] [address], [place] * (ABNORMAL) Urinalysis W/Reflex to Microscopic & Culture (06/01/2024 11:09 AM EST) Pathologist [facility] Color, Urine Red(A) Colorless, Light Yellow, Yellow, Dark Yellow 06/01/2024 1:47 PM EST [facility] Clarity, Urine Cloudy(A) Clear 06/01/2024 1:47 PM EST [facility] Specific [place], Urine 1.015 1.005 - 1.030 06/01/2024 1:47 PM EST [facility] pH, Urine 6.0 4.6 - 8.0 06/01/2024 1:47 PM EST [facility] Protein, Urine 2+(A) Negative 06/01/2024 1:47 PM EST [facility] Glucose, Urine Negative Negative 06/01/2024 1:47 PM EST [facility] Ketones, Urine Negative Negative 06/01/2024 1:47 PM EST [facility] Bilirubin, Urine Negative Negative 06/01/2024 1:47 PM EST [facility] Blood, Urine 3+(A) Negative 06/01/2024 1:47 PM EST [facility] Nitrite, Urine Negative Negative 06/01/2024 1:47 PM EST [facility] Urobilinogen, Urine Normal Normal 06/01/2024 1:47 PM EST [facility] Leukocyte Esterase, Urine Negative Negative 06/01/2024 1:47 PM EST [facility] WBC, Urine 0 0 - 2 /HPF 06/01/2024 1:47 PM EST [facility] RBC, Urine >180(H) 0 - 2 /HPF 06/01/2024 1:47 PM EST [facility] Hyaline Casts, Urine 0 0 - 2 /LPF 06/01/2024 1:47 PM EST [facility] Bacteria, Urine None None /HPF /HPF 06/01/2024 1:47 PM EST [facility] Mucus, Urine Few /LPF 06/01/2024 1:47 PM EST [facility] Urine Urine specimen collection, clean catch / Unknown Non-Blood Collection / Unknown 06/01/2024 11:09 AM EST 06/01/2024 1:23 PM EST us Luz Fisher MD LAB URINE ORDERABLES Sherly alexandra Result [facility] [address] [place] [address], documented in this encounter Visit Diagnoses Diagnosis Gait instability- Primary Abnormality of gait Hematuria Hematuria, unspecified Hematuria Hematuria, unspecified Pelvic abscess in female Left leg weakness Muscle weakness (generalized) Thrombocytosis Essential thrombocythemia Anemia Unspecified anemia Pulmonary nodules Other diseases of lung, not elsewhere classified Hyperlipidemia Other and unspecified hyperlipidemia Anxiety Anxiety state, unspecified Osteomyelitis of pelvis ([facility]/HCC) ([facility]) Streptococcal bacteremia documented in this encounter Admitting Diagnoses Diagnosis Hematuria Hematuria, unspecified documented in this encounter Administered Medications Inactive Administered Medications - up to 3 most recent administrations Medication Order MAR Action Action Date Dose Rate Site acetaminophen (TYLENOL) tablet 650 mg 650 mg, oral, Once, On Tue06/04/24 at 1230, 1 dose Given 06/04/2024 12:40 PM EST 650 mg acetaminophen (TYLENOL) tablet 975 mg 975 mg, oral, Once, On Tue06/01/24 at 1615, 1 dose Given 06/01/2024 6:04 PM EST 975 mg acetaminophen (TYLENOL) tablet 975 mg 975 mg, oral, Once, On Tue06/05/24 at 0345, 1 dose Given 06/05/2024 3:42 AM EST 975 mg acetaminophen (TYLENOL) tablet 975 mg 975 mg, oral, Once, On Tue06/05/24 at 1445, 1 dose Given 06/05/2024 2:58 PM EST 975 mg acetaminophen (TYLENOL) tablet 975 mg 975 mg, oral, Every 6 hours PRN, pain, Starting on Tue06/06/24 at 1826, Until Tue06/09/24 at 0048 Given 06/08/2024 4:33 PM EST 975 mg Given 06/08/2024 10:25 AM EST 975 mg Given 06/08/2024 2:07 AM EST 975 mg apixaban (ELIQUIS) tablet 5 mg 5 mg, oral, Every 12 hours scheduled, First dose on Tue06/01/24 at 2220, Until Discontinued, Contraindications: Active pathological bleeding, mechanical valve or moderate to severe mitral stenosis, triple positive antiphospholipid syndrome, /: No contraindications, Indication: Venous Thromboembolism, Is this a new start? Continuation, LFTs within last year? Yes - from O[facility] Given 06/08/2024 8:36 PM EST 5 mg Given 06/08/2024 9:23 AM EST 5 mg Given 06/07/2024 9:18 PM EST 5 mg atorvastatin (LIPITOR) tablet 40 mg 40 mg, oral, Daily, First dose on Tue06/05/24 at 1045, Until Discontinued Given 06/08/2024 9:23 AM EST 40 mg Given 06/07/2024 8:57 AM EST 40 mg Given 06/06/2024 8:23 AM EST 40 mg bisacodyL (DULCOLAX) suppository 10 mg 10 mg, rectal, Daily PRN, constipation, Starting on Tue06/08/24 at 0832, Until 06/09/24 at 0048 Given 06/08/2024 3:29 PM EST 10 mg cefTRIAXone (ROCEPHIN) 2 g in 0.9% NaCl 100 mL Mini-Bag Plus 2 g, intravenous, at 200 mL/hr, Administer over 30 Minutes, Every 24 hours scheduled, First dose (after last modification) on Tue06/08/24 at 0900, 8 doses, Last dose on Tue06/15/24 at 0900, Mini-Bag Plus, Reason for Therapy: Bacterial Infection Documented, Indication: Other, Specify: urine infx New Bag/Syringe 06/08/2024 9:27 AM EST 2 g 200 mL/hr cefTRIAXone (ROCEPHIN) injection 1 g 1 g, intravenous, Administer over 3 Minutes, Every 24 hours scheduled, First dose (after last modification) on Tue06/01/24 at 1730, 5 doses, Last dose on Tue06/05/24 at 0900, Dilute 1 g with 10 mL of sterile water for injection. Administer over 3-5 minutes., Reason for Therapy: Bacterial Infection Documented, Indication: Other, Specify: urine infx Given 06/04/2024 8:41 AM EST 1 g Given 06/03/2024 10:52 AM EST 1 g Given 06/02/2024 9:26 AM EST 1 g cefTRIAXone (ROCEPHIN) injection 1 g 1 g, intravenous, Administer over 3 Minutes, Every 24 hours scheduled, First dose (after last modification) on Tue06/05/24 at 0900, 2 doses, Last dose on Tue06/06/24 at 0900, Dilute 1 g with 10 mL of sterile water for injection. Administer over 3-5 minutes., Reason for Therapy: Bacterial Infection Documented, Indication: Other, Specify: urine infx Given 06/05/2024 9:00 AM EST 1 g cefTRIAXone (ROCEPHIN) injection 1 g 1 g, intravenous, Administer over 3 Minutes, Every 24 hours scheduled, First dose (after last modification) on Tue06/06/24 at 0900, 10 doses, Last dose on Tue06/15/24 at 0900, Dilute 1 g with 10 mL of sterile water for injection. Administer over 3-5 minutes., Reason for Therapy: Bacterial Infection Documented, Indication: Other, Specify: urine infx Given 06/07/2024 8:58 AM EST 1 g Given 06/06/2024 8:39 AM EST 1 g clonazePAM (KlonoPIN) tablet 0.5 mg 0.5 mg, oral, 3 times daily, First dose on Tue06/05/24 at 1400, Until Discontinued, Hazardous Medication ? Reproductive Risk. Use PPE when handling. Given 06/08/2024 8:35 PM EST 0 .5 mg Given 06/08/2024 1:16 PM EST 0.5 mg Given 06/08/2024 9:23 AM EST 0.5 mg clonazePAM (KlonoPIN) tablet 0.5 mg 0.5 mg, oral, 3 times daily PRN, anxiety, Starting on Tue06/03/24 at 1229, Until Tue06/05/24 at 1852, Hazardous Medication ? Reproductive Risk. Use PPE when handling. Given 06/05/2024 10:[address] 0.5 mg Given 06/05/2024 4:27 AM EST 0.5 mg Given 06/04/2024 8:03 PM EST 0.5 mg clonazePAM (KlonoPIN) tablet 0.5 mg 0.5 mg, oral, Once, On Tue06/08/24 at 1800, 1 dose, Hazardous Medication ? Reproductive Risk. Use PPE when handling. Given 06/08/2024 6:19 PM EST 0 .5 mg dextroamphetamine-amphetamine (ADDERALL) tablet 30 mg 30 mg, oral, 2 times daily PRN, ADHD, Starting on Tue06/05/24 at 1900, Until 06/09/24 at 0048 docusate sodium (COLACE) capsule 100 mg 100 mg, oral, 2 times daily, First dose on Tue06/02/24 at 0900, Until Discontinued Given 06/08/2024 4:32 PM EST 100 m g Given 06/08/2024 9:23 AM EST 100 mg Given 06/07/2024 4:09 PM EST [address] (CYMBALTA) capsule 120 mg 120 mg, oral, Daily, First dose on Tue06/06/24 at 0600, Until Discontinued, Do not crush or chew. Given 06/08/2024 5:18 AM EST 120 mg oral Given 06/07/2024 5:43 AM EST 120 mg Given 06/06/2024 7:16 AM EST 120 mg HYDROmorphone PF (DILAUDID) injection 0.8 mg 0.8 mg, intravenous, Once as needed, breakthrough pain, PRIOR TO MRI, Starting on Tue06/05/24 at 0946, 1 dose, Until Tue06/06/24 at 0409, GIVE PRIOR TO MRI Assess pain, sedation, and respiratory rate prior to each opioid administration. Given 06/06/2024 4:09 AM EST 0.8 mg hydrOXYzine HCL (ATARAX) 10 mg tablet Pyxis Override Pull Starting on Tue06/03/24 at 0903, 1 dose, Until Tue06/03/24 at 0915, Created by cabinet override hydrOXYzine HCL (ATARAX) tablet 10 mg 10 mg, oral, Once, On Tue06/03/24 at 0915, 1 dose Given 06/03/2024 9:15 AM EST 10 mg Given 06/03/2024 9:07 AM EST 10 mg iohexoL (OMNIPAQUE) 350 mg iodine/mL contrast 10-200 mL 10-200 mL, intravenous, Once, On Tue06/01/24 at 1615, 1 dose, Imaging Protocol Orders Given 06/01/2024 4:14 PM EST 100 mL iohexoL (OMNIPAQUE) 350 mg iodine/mL contrast 10-200 mL 10-200 mL, intravenous, Once, On Tue06/05/24 at 1230, 1 dose, Imaging Protocol Orders Given 06/05/2024 12:30 PM EST 80 mL iron sucrose (VENOFER) injection 100 mg 100 mg, intravenous, Daily, First dose on Tue06/05/24 at 0900, 5 doses, Last dose on Tue06/09/24 at 0900, Administer by slow IV injection over 5 minutes. Given 06/08/2024 10:25 AM EST 100 mg Given 06/07/2024 9:07 AM EST 100 mg Given 06/06/2024 8:23 AM EST 100 mg ketorolac (TORADOL) injection 15 mg 15 mg, intravenous, Once, On Tue06/03/24 at 0815, 1 dose Given 06/03/2024 9:07 AM EST 15 mg lactated Ringer's (LR) bolus 500 mL 500 mL, intravenous, Once, On Tue06/04/24 at 2245, 1 dose New Bag/Syringe 06/04/2024 10:46 PM EST 500 mL lactated Ringer's (LR) bolus 500 mL 500 mL, intravenous, Once, On Tue06/06/24 at 1400, 1 dose New Bag/Syringe 06/06/2024 2:13 PM EST 500 mL lamoTRIgine (LaMICtal) tablet 200 mg 200 mg, oral, 2 times daily, First dose on Tue06/05/24 at 1045, Until Discontinued Given 06/08/2024 4:33 PM EST 200 mg Given 06/08/2024 9:23 AM EST 200 mg Given 06/07/2024 4:09 PM EST 200 mg lidocaine PF (XYLOCAINE) 1% (10 mg/mL) injection 50 mg 50 mg (5 mL), subcutaneous, Once as needed, PICC line insertion, Starting on Funmilayo 06/07/24 at 1045, Until 06/09/24 at 0048 Given 06/07/2024 3:30 PM EST 50 mg Right Upper Arm magnesium sulfate 2 g in SWFI 50 mL IVPB premix 2 g, intravenous, at 25 mL/hr, Administer over 2 Hours, Once, On Tue06/05/24 at 0945, 1 dose, Total dose = 2 g New Bag/Syringe 06/05/2024 10:20 AM EST 2 g 25 mL/hr metroNIDAZOLE (FLAGYL) 500 mg in 0.9% NaCl 100 mL IVPB premix 500 mg, intravenous, Administer over 60 Minutes, Every 8 hours scheduled, First dose on Tue06/01/24 at 2200, 15 doses, Last dose on Tue06/06/24 at 1400, Premix., Reason for Therapy: Bacterial Infection Documented, Indication: Pneumonia New Bag/Syringe 06/05/2024 1:54 PM EST 500 mg New Bag/Syringe 06/05/2024 5:15 AM EST 500 mg New Bag/Syringe 06/04/2024 8:47 PM EST 500 mg metroNIDAZOLE (FLAGYL) 500 mg in 0.9% NaCl 100 mL IVPB premix 500 mg, intravenous, Administer over 60 Minutes, Every 8 hours scheduled, First dose (after last modification) on Tue06/05/24 at 2200, 30 doses, Last dose on Tue06/15/24 at 1400, Premix., Reason for Therapy: Bacterial Infection Documented, Indication: Pneumonia New Bag/Syringe 06/07/2024 5:43 AM EST 500 mg New Bag/Syringe 06/06/2024 9:12 PM EST 500 mg New Bag/Syringe 06/06/2024 2:16 PM EST 500 mg metroNIDAZOLE (FLAGYL) tablet 500 mg 500 mg, oral, Every 12 hours scheduled, First dose on Tue06/07/24 at 2100, 84 doses, Last dose on Tue07/19/24 at 0900, Reason for Therapy: Bacterial Infection Documented, Indication: Skin or Soft Tissue infection Given 06/08/2024 8:35 PM EST 50 0 mg Given 06/08/2024 9:23 AM EST 500 mg Given 06/07/2024 9:18 PM EST 500 mg morphine injection 4 mg 4 mg, intravenous, Once, On Tue06/01/24 at 2020, 1 dose, Assess pain, sedation, and respiratory rate prior to each opioid administration. Given 06/01/2024 8:20 PM EST 4 mg oxyCODONE IR (ROXICODONE) tablet 10 mg 10 mg, oral, Every 6 hours PRN, Severe pain or 7-10 (on the numeric pain scale), Starting on Tue06/05/24 at 1300, Until Tue06/07/24 at 1436, Assess pain, sedation, and respiratory rate prior to each opioid administration. Given 06/07/2024 1:14 PM EST 10 mg Given 06/06/2024 8:22 AM EST 10 mg Given 06/06/2024 2:08 AM EST 10 mg oxyCODONE IR (ROXICODONE) tablet 20 mg 20 mg, oral, Every 6 hours PRN, Severe pain or 7-10 (on the numeric pain scale), Starting on Tue06/01/24 at 2215, Until Tue06/05/24 at 0946, Assess pain, sedation, and respiratory rate prior to each opioid administration. Given 06/04/2024 8:03 PM EST 20 mg Given 06/04/2024 2:39 PM EST 20 mg Given 06/04/2024 8:38 AM EST 20 mg oxyCODONE IR (ROXICODONE) tablet 5 mg 5 mg, oral, Every 3 hours PRN, Moderate pain or 4-6 (on the numeric pain scale), Starting on Tue06/01/24 at 2215, Until Tue06/05/24 at 0946, Assess pain, sedation, and respiratory rate prior to each opioid administration. Given 06/05/2024 9:42 AM EST 5 mg Given 06/05/2024 1:37 AM EST 5 mg Given 06/04/2024 12:18 PM EST 5 mg oxyCODONE IR (ROXICODONE) tablet 5 mg 5 mg, oral, Once, On Tue06/05/24 at 0500, 1 dose, Assess pain, sedation, and respiratory rate prior to each opioid administration. Given 06/05/2024 4:27 AM EST 5 mg oxyCODONE IR (ROXICODONE) tablet 5 mg 5 mg, oral, Every 3 hours PRN, Moderate pain or 4-6 (on the numeric pain scale), Starting on Tue06/05/24 at 1300, Until Tue06/07/24 at 1436, Assess pain, sedation, and respiratory rate prior to each opioid administration. Given 06/07/2024 9:06 AM EST 5 mg Given 06/07/2024 5:52 AM EST 5 mg Given 06/07/2024 12:53 AM EST 5 mg oxyCODONE IR (ROXICODONE) tablet 5 mg 5 mg, oral, Every 3 hours PRN, Moderate pain or 4-6 (on the numeric pain scale), Starting on Tue06/07/24 at 1435, Until 06/09/24 at 0048, Assess pain, sedation, and respiratory rate prior to each opioid administration. Given 06/08/2024 8:36 PM EST 5 mg Given 06/08/2024 4:32 PM EST 5 mg Given 06/08/2024 1:19 PM EST 5 mg oxyCODONE IR (ROXICODONE) tablet 7.5 mg 7.5 mg, oral, Every 3 hours PRN, Severe pain or 7-10 (on the numeric pain scale), Starting on Tue06/07/24 at 1435, Until 06/09/24 at 0048, Assess pain, sedation, and respiratory rate prior to each opioid administration. Given 06/07/2024 9:18 PM EST 7.5 mg polyethylene glycol 3350 (MIRALAX) packet 17 g 17 g, oral, Daily, First dose on Tue06/08/24 at 0900, Until Discontinued, Dissolve each 17 g packet in 4-8 ounces of water or juice prior to administration. Given 06/08/2024 9:23 AM EST 17 g potassium chloride ER (KLOR-CON) tablet 40 mEq 40 mEq, oral, Once, On Tue06/05/24 at 0945, 1 dose, Do not crush. Given 06/05/2024 10:20 AM EST 40 mEq senna (SENOKOT) tablet 17.2 mg 17.2 mg, oral, Nightly, First dose on Tue06/01/24 at 2220, Until Discontinued Given 06/08/2024 8:35 PM EST 17.2 mg Given 06/07/2024 9:18 PM EST 17.2 mg Given 06/06/2024 9:12 PM EST 17.2 mg sodium chloride 0.9% (NS) premix infusion intravenous, at 125 mL/hr, Continuous, Starting on Tue06/04/24 at 0630, Until Tue06/04/24 at 1429 New Bag/Syringe 06/04/2024 6:30 AM EST 125 mL/hr sodium chloride 0.9% flush 10 mL 10 mL, intraluminal, Every 12 hours scheduled, First dose on Tue06/04/24 at 1000, Until Discontinued, Flush with a pulsatile motion with 10 mL every 12 hours. Given 06/07/2024 9:00 AM EST 10 mL Given 06/06/2024 9:13 PM EST 10 mL Given 06/06/2024 8:23 AM EST 10 mL sodium chloride 0.9% flush 10-30 mL 10-30 mL, intravenous, Daily, First dose on Tue06/07/24 at 1100, Until Discontinued, Flush each lumen with a pulsatile motion with a minimum of 10 mL daily. Please note which lumen(s) have been flushed in comments section. Given 06/07/2024 11:00 AM EST 10 mL sodium chloride 0.9% flush 10-30 mL 10-30 mL, intravenous, See admin instructions, Starting on Tue06/07/24 at 1557, Until 06/09/24 at 0048, Flush each lumen with a pulsatile motion with a minimum of 10 mL before and after use. Please note which lumen(s) have been flushed in comments section. sodium chloride 0.9% flush 10-30 mL 10-30 mL, intravenous, Daily, First dose (after last modification) on Tue06/08/24 at 0900, Until Discontinued, Flush each lumen with a pulsatile motion with a minimum of 10 mL daily. Please note which lumen(s) have been flushed in comments section. Given 06/08/2024 9:30 AM EST 20 mL sodium chloride 0.9% flush 2.5-10 mL 2.5-10 mL, intravenous, See admin instructions, Starting on Tue06/01/24 at 2212, Until 06/09/24 at 0048, Flush each lumen with a pulsatile motion with a minimum of 2.5 mL before and after use. Please note which lumen(s) have been flushed in comments section. sodium chloride 0.9% flush 2.5-10 mL 2.5-10 mL, intravenous, Every 12 hours scheduled, First dose on Tue06/01/24 at 2220, Until Discontinued, Flush each lumen with a pulsatile motion with a minimum of 2.5 mL every 12 hours. Please note which lumen(s) have been flushed in comments section. Given 06/08/2024 8:36 PM EST 10 mL Given 06/08/2024 1:19 PM EST 10 mL Given 06/07/2024 9:20 PM EST 10 mL traZODone (DESYREL) tablet 150 mg 150 mg, oral, Nightly, First dose on Tue06/01/24 at 2220, Until Discontinued Given 06/08/2024 8:36 PM EST 150 mg Given 06/07/2024 9:18 PM EST 150 mg Given 06/06/2024 9:12 PM EST 150 mg documented in this encounter Active and Recently Administered Medications Times are shown in EST. Scheduled Medication Order 06/06/2024 06/07/2024 06/08/2024 apixaban (ELIQUIS) tablet 5 mg 5 mg, oral, Every 12 hours scheduled, First dose on Tue06/01/24 at 2220, Until Discontinued, Contraindications: Active pathological bleeding, mechanical valve or moderate to severe mitral stenosis, triple positive antiphospholipid syndrome, /: No contraindications, Indication: Venous Thromboembolism, Is this a new start? Continuation, LFTs within last year? Yes - from [facility] 822 (Given - Provider: Ekta Howell RN)2111 (Given - Provider: Keysha Orellana RN) 856 (Given - Provider: Randa Chung RN)2117 (Given - Provider: Zoe Pires RN) 922 (Given - Provider: Raudel Snell, MJ)2035 (Given - Provider: Geovanni Shook RN) atorvastatin (LIPITOR) tablet 40 mg 40 mg, oral, Daily, First dose on Tue06/05/24 at 1045, Until Discontinued 822 (Given - Provider: Ekta Howell RN) 856 (Given - Provider: Randa Chung RN) 922 (Given - Provider: Raudel Snell RN) cefTRIAXone (ROCEPHIN) 2 g in 0.9% NaCl 100 mL Mini-Bag Plus 2 g, intravenous, at 200 mL/hr, Administer over 30 Minutes, Every 24 hours scheduled, First dose (after last modification) on Tue06/08/24 at 0900, 8 doses, Last dose on Tue06/15/24 at 0900, Mini-Bag Plus, Reason for Therapy: Bacterial Infection Documented, Indication: Other, Specify: urine infx 0927 (New Bag/Syringe - Provider: Raudel Snell RN) cefTRIAXone (ROCEPHIN) injection 1 g (CANCELED) 1 g, intravenous, Administer over 3 Minutes, Every 24 hours scheduled, First dose (after last modification) on Tue06/06/24 at 0900, 10 doses, Last dose on Tue06/15/24 at 0900, Dilute 1 g with 10 mL of sterile water for injection. Administer over 3-5 minutes., Reason for Therapy: Bacterial Infection Documented, Indication: Other, Specify: urine infx 0839 (Given - Provider: Ekta Howell RN - Comment: ok to give in 100 mL bag per pharmD) 0858 (Given - Provider: Randa Chung RN) clonazePAM (KlonoPIN) tablet 0.5 mg 0.5 mg, oral, 3 times daily, First dose on Tue06/05/24 at 1400, Until Discontinued, Hazardous Medication ? Reproductive Risk. Use PPE when handling. 08 (Given - Provider: Ekta Howell RN)1399 (Not Given - Provider: Ekta Howell RN - Reason: Other - See Comment - Comment: hold per provider d/t low BP)2111 (Given - Provider: Keysha Orellana RN) 0857 (Given - Provider: Randa Chung RN)1400 (Not Given - Provider: Randa Chung RN - Reason: Other - See Comment - Comment: BP to low. per MD to hold)2117 (Given - Provider: Zoe Pires RN) 09 (Given - Provider: Raudel Snell RN)131 (Given - Provider: Raudel Snell RN)2034 (Given - Provider: Geovanni Shook RN) clonazePAM (KlonoPIN) tablet 0.5 mg (COMPLETED) 0.5 mg, oral, Once, On Tue06/08/24 at 1800, 1 dose, Hazardous Medication ? Reproductive Risk. Use PPE when handling. 1818 (Given - Provider: Raudel Snell RN) docusate sodium (COLACE) capsule 100 mg 100 mg, oral, 2 times daily, First dose on Tue06/02/24 at 0900, Until Discontinued 08 (Given - Provider: Ekta Howell RN)165 (Given - Provider: Ekta Howell RN) 0857 (Given - Provider: Randa Chung RN)160 (Given - Provider: Zoe Pires RN) 0923 (Given - Provider: Raudel Snell RN)163 (Given - Provider: Raudel Snell RN) DULoxetine DR (CYMBALTA) capsule 120 mg 120 mg, oral, Daily, First dose on Tue06/06/24 at 0600, Until Discontinued, Do not crush or chew. 0716 (Given - Provider: Keysha Orellana RN) 0543 (Given - Provider: Keysha Orellana RN) 0518 (Given - Provider: Justine Abreu RN) iron sucrose (VENOFER) injection 100 mg 100 mg, intravenous, Daily, First dose on Tue06/05/24 at 0900, 5 doses, Last dose on Tue06/09/24 at 0900, Administer by slow IV injection over 5 minutes. 0823 (Given - Provider: Ekta Howell RN) 0907 (Given - Provider: Randa Chung, RN) 1025 (Given - Provider: Raudel Snell, MJ) lactated Ringer's (LR) bolus 500 mL (COMPLETED) 500 mL, intravenous, Once, On Tue06/06/24 at 1400, 1 dose 1413 (New Bag/Syringe - Provider: Ekta Howell RN)1552 (Stopped - Provider: Ekta Howell RN) lamoTRIgine (LaMICtal) tablet 200 mg 200 mg, oral, 2 times daily, First dose on Tue06/05/24 at 1045, Until Discontinued 0823 (Given - Provider: Ekta Howell RN)1651 (Given - Provider: Ekta Howell RN) 0857 (Given - Provider: Randa Chung, RN)1609 (Given - Provider: Zoe Pires RN) 0923 (Given - Provider: Raudel Snell RN)1633 (Given - Provider: Raudel Snell RN) metroNIDAZOLE (FLAGYL) 500 mg in 0.9% NaCl 100 mL IVPB premix (CANCELED) 500 mg, intravenous, Administer over 60 Minutes, Every 8 hours scheduled, First dose (after last modification) on Tue06/05/24 at 2200, 30 doses, Last dose on Tue06/15/24 at 1400, Premix., Reason for Therapy: Bacterial Infection Documented, Indication: Pneumonia 0717 (New Bag/Syringe - Provider: Keysha Orellana RN)1416 (New Bag/Syringe - Provider: Ekta Howell RN)2112 (New Bag/Syringe - Provider: Keysha Orellana RN) 0543 (New Bag/Syringe - Provider: Keysha Orellana, RN) metroNIDAZOLE (FLAGYL) tablet 500 mg 500 mg, oral, Every 12 hours scheduled, First dose on Tue06/07/24 at 2100, 84 doses, Last dose on Tue07/19/24 at 0900, Reason for Therapy: Bacterial Infection Documented, Indication: Skin or Soft Tissue infection 2117 (Given - Provider: Zoe Pires RN) 09 (Given - Provider: Raudel Snell RN)2035 (Given - Provider: Geovanni Shook RN) polyethylene glycol 3350 (MIRALAX) packet 17 g 17 g, oral, Daily, First dose on Tue06/08/24 at 0900, Until Discontinued, Dissolve each 17 g packet in 4-8 ounces of water or juice prior to administration. 922 (Given - Provider: Raudel Snell RN) senna (SENOKOT) tablet 17.2 mg 17.2 mg, oral, Nightly, First dose on Tue06/01/24 at 2220, Until Discontinued 2111 (Given - Provider: Keysha Orellana RN) 2117 (Given - Provider: Zoe Pires RN) 2034 (Given - Provider: Geovanni Shook RN) sodium chloride 0.9% flush 10 mL (CANCELED)(Linked Group 1) 10 mL, intraluminal, Every 12 hours scheduled, First dose on Tue06/04/24 at 1000, Until Discontinued, Flush with a pulsatile motion with 10 mL every 12 hours. 822 (Given - Provider: Ekta Howell RN)2112 (Given - Provider: Keysha Orellana RN) 899 (Given - Provider: Randa Chung RN) sodium chloride 0.9% flush 10-30 mL (CANCELED) 10-30 mL, intravenous, Daily, First dose on Tue06/07/24 at 1100, Until Discontinued, Flush each lumen with a pulsatile motion with a minimum of 10 mL daily. Please note which lumen(s) have been flushed in comments section. 1100 (Given - Provider: Randa Chung RN) sodium chloride 0.9% flush 10-30 mL(Linked Group 2) 10-30 mL, intravenous, See admin instructions, Starting on Tue06/07/24 at 1557, Until 06/09/24 at 0048, Flush each lumen with a pulsatile motion with a minimum of 10 mL before and after use. Please note which lumen(s) have been flushed in comments section. sodium chloride 0.9% flush 10-30 mL(Linked Group 2) 10-30 mL, intravenous, Daily, First dose (after last modification) on Tue06/08/24 at 0900, Until Discontinued, Flush each lumen with a pulsatile motion with a minimum of 10 mL daily. Please note which lumen(s) have been flushed in comments section. 0930 (Given - Provider: Raudel Snell RN) sodium chloride 0.9% flush 2.5-10 mL(Linked Group 3) 2.5-10 mL, intravenous, See admin instructions, Starting on Tue06/01/24 at 2212, Until 06/09/24 at 0048, Flush each lumen with a pulsatile motion with a minimum of 2.5 mL before and after use. Please note which lumen(s) have been flushed in comments section. sodium chloride 0.9% flush 2.5-10 mL(Linked Group 3) 2.5-10 mL, intravenous, Every 12 hours scheduled, First dose on Tue06/01/24 at 2220, Until Discontinued, Flush each lumen with a pulsatile motion with a minimum of 2.5 mL every 12 hours. Please note which lumen(s) have been flushed in comments section. 0823 (Given - Provider: Ekta Howell RN)2100 (Not Given - Provider: Keysha Orellana RN - Reason: Other - See Comment - Comment: dup order) 0900 (Given - Provider: Randa Chung RN)2119 (Given - Provider: Zoe Pires, MJ) 131 (Given - Provider: Raudel Snell RN)2035 (Given - Provider: Geovanni Shook, MJ) traZODone (DESYREL) tablet 150 mg 150 mg, oral, Nightly, First dose on Tue06/01/24 at 2220, Until Discontinued 2111 (Given - Provider: Keysha Orellana RN) 2117 (Given - Provider: Zoe Pires, MJ) 2035 (Given - Provider: Geovanni Shook, MJ) PRN Medication Order 06/06/2024 06/07/2024 06/08/2024 acetaminophen (TYLENOL) tablet 975 mg 975 mg, oral, Every 6 hours PRN, pain, Starting on Tue06/06/24 at 1826, Until 06/09/24 at 0048 1906 (Not Given - Provider: Ekta Howell RN - Reason: Other - See Comment - Comment: pt sleeping)2111 (Given - Provider: Keysha Orellana, RN) 1609 (Given - Provider: Zoe Pirse, MJ) 0207 (Given - Provider: Justine Abreu RN)1025 (Given - Provider: Raudel Snell, MJ)1633 (Given - Provider: Raudel Snell, MJ) bisacodyL (DULCOLAX) suppository 10 mg 10 mg, rectal, Daily PRN, constipation, Starting on Tue06/08/24 at 0832, Until 06/09/24 at 0048 1529 (Given - Provider: Raudel Snell, MJ) dextroamphetamine-amphe tamine (ADDERALL) tablet 30 mg 30 mg, oral, 2 times daily PRN, ADHD, Starting on Tue06/05/24 at 1900, Until 06/09/24 at 0048 HYDROmorphone PF (DILAUDID) injection 0.8 mg (COMPLETED) 0.8 mg, intravenous, Once as needed, breakthrough pain, PRIOR TO MRI, Starting on Tue06/05/24 at 0946, 1 dose, Until Tue06/06/24 at 0409, GIVE PRIOR TO MRI Assess pain, sedation, and respiratory rate prior to each opioid administration. 0409 (Given - Provider: Keysha Orellana RN) lidocaine PF (XYLOCAINE) 1% (10 mg/mL) injection 50 mg 50 mg (5 mL), subcutaneous, Once as needed, PICC line insertion, Starting on Funmilayo 06/07/24 at 1045, Until 06/09/24 at 0048 1530 (Given - Provider: Eliazar Hammond RN) naloxone (NARCAN) injection 0.4 mg 0.4 mg, intravenous, Every 2 hour PRN, opioid reversal, respiratory depression, Starting on Tue06/01/24 at 2215, Until 06/09/24 at 0048, Complete opioid reversal for respiratory rate 9 or less AND (POSS 4 or RASS -2 or less). Notify provider if naloxone is administered to evaluate the patient to determine if additional naloxone doses are needed and to reevaluate the patient's opioid orders. naloxone 0.04 mg injection 0.04 mg, intravenous, Every 3 minutes as needed, opioid reversal, respiratory depression, Starting on Tue06/01/24 at 2215, Until 06/09/24 at 0048, Partial opioid reversal for respiratory rate 9 or less AND (POSS 3 or RASS -1 or less). Notify provider if naloxone is administered to evaluate the patient to determine if additional naloxone doses are needed and to reevaluate the patient's opioid orders. Draw up 1 mL from 0.4 mg/mL injection and add 9 mL NS for a final concentration of 0.04 mg/mL. oxyCODONE IR (ROXICODONE) tablet 10 mg (CANCELED) 10 mg, oral, Every 6 hours PRN, Severe pain or 7-10 (on the numeric pain scale), Starting on Tue06/05/24 at 1300, Until Funmilayo 06/07/24 at 1436, Assess pain, sedation, and respiratory rate prior to each opioid administration. 0208 (Given - Provider: Keysha Orellana RN)0822 (Given - Provider: Ekta Howell RN) 005 (See Alternative - Provider: Keysha Orellana RN)0552 (See Alternative - Provider: Keysha Orellana RN)0906 (See Alternative - Provider: Randa Chung RN)1314 (Given - Provider: Li Adams RN) oxyCODONE IR (ROXICODONE) tablet 5 mg (CANCELED) 5 mg, oral, Every 3 hours PRN, Moderate pain or 4-6 (on the numeric pain scale), Starting on Tue06/05/24 at 1300, Until Funmilayo 06/07/24 at 1436, Assess pain, sedation, and respiratory rate prior to each opioid administration. 0208 (See Alternative - Provider: Keysha Orellana RN)08 (See Alternative - Provider: Ekta Howell RN) 005 (Given - Provider: Keysha Orellana RN)0552 (Given - Provider: Keysha Orellana RN)0906 (Given - Provider: Randa Chung RN)1314 (See Alternative - Provider: Li Adams, RN) oxyCODONE IR (ROXICODONE) tablet 5 mg(Linked Group 4) 5 mg, oral, Every 3 hours PRN, Moderate pain or 4-6 (on the numeric pain scale), Starting on Funmilayo 06/07/24 at 1435, Until 06/09/24 at 0048, Assess pain, sedation, and respiratory rate prior to each opioid administration. 1609 (Given - Provider: Zoe Pires RN)2117 (See Alternative - Provider: Zoe Pires, RN) 0518 (Given - Provider: Justine Abreu, MJ)0923 (Given - Provider: Raudel Snell RN)131 (Given - Provider: Raudel Snell, MJ)163 (Given - Provider: Raudel Snell, MJ)2035 (Given - Provider: Geovanni Shook, RN) oxyCODONE IR (ROXICODONE) tablet 7.5 mg(Linked Group 4) 7.5 mg, oral, Every 3 hours PRN, Severe pain or 7-10 (on the numeric pain scale), Starting on Funmilayo 06/07/24 at 1435, Until 06/09/24 at 0048, Assess pain, sedation, and respiratory rate prior to each opioid administration. 1609 (See Alternative - Provider: Zoe Pires RN)2117 (Given - Provider: Zoe Pires RN) 05 (See Alternative - Provider: Justine Abreu RN)0923 (See Alternative - Provider: Raudel Snell RN)131 (See Alternative - Provider: Raudel Snell, MJ)163 (See Alternative - Provider: Raudel Snell, MJ)2035 (See Alternative - Provider: Geovanni Shook, MJ) Linked Groups Order Group 1: IV Midline Catheter Line Care (CANCELED) Until discontinued, Starting on Tue06/04/24 at 0946, Until Specified, Blood Draw: May draw labs off line (Trained RNs only) And sodium chloride 0.9% flush 10 mL (CANCELED) 10 mL, intravenous, See admin instructions, Starting on Tue06/04/24 at 0945, Until Funmilayo 06/07/24 at 1643, Flush with a pulsatile motion with 10 mL before and after use. And sodium chloride 0.9% flush 10 mL (CANCELED)Jump to med 10 mL, intraluminal, Every 12 hours scheduled, First dose on Tue06/04/24 at 1000, Until Discontinued, Flush with a pulsatile motion with 10 mL every 12 hours. Group 2: PICC Care (CANCELED) Until discontinued, Starting on Funmilayo 06/07/24 at 1557, Until Specified, Blood Draw: May draw labs off line, Use of Line: New line: Placement verified; Approved for use And Line Associated Bath CHG Bath; Follow him manager's instructions. Provide CHG bath at least one hour after soap and water bath unless a CHG compatible soap was used. (CANCELED) Every morning, First occurrence on Tue06/08/24 at 0800, Bath Type: CHG Bath, CHG General Instructions: Follow him manager's instructions. Provide CHG bath at least one hour after soap and water bath unless a CHG compatible soap was used. And sodium chloride 0.9% flush 10-30 mLJump to med 10-30 mL, intravenous, See admin instructions, Starting on Tue06/07/24 at 1557, Until 06/09/24 at 0048, Flush each lumen with a pulsatile motion with a minimum of 10 mL before and after use. Please note which lumen(s) have been flushed in comments section. And sodium chloride 0.9% flush 10-30 mLJump to med 10-30 mL, intravenous, Daily, First dose (after last modification) on Tue06/08/24 at 0900, Until Discontinued, Flush each lumen with a pulsatile motion with a minimum of 10 mL daily. Please note which lumen(s) have been flushed in comments section. Group 3: IV Peripheral Line Care (CANCELED) Until discontinued, Starting on Tue06/01/24 at 2213, Until Specified, Insert/Replace: 96 hours for non-flexion, sterile IVs, 48 hours for flexion IVs, and 24 hours for non-sterile field IVs, Blood Draw: With insertion only And sodium chloride 0.9% flush 2.5-10 mLJump to med 2.5-10 mL, intravenous, See admin instructions, Starting on Tue06/01/24 at 2212, Until 06/09/24 at 0048, Flush each lumen with a pulsatile motion with a minimum of 2.5 mL before and after use. Please note which lumen(s) have been flushed in comments section. And sodium chloride 0.9% flush 2.5-10 mLJump to med 2.5-10 mL, intravenous, Every 12 hours scheduled, First dose on Tue06/01/24 at 2220, Until Discontinued, Flush each lumen with a pulsatile motion with a minimum of 2.5 mL every 12 hours. Please note which lumen(s) have been flushed in comments section. Group 4: oxyCODONE IR (ROXICODONE) tablet 5 mgJump to med 5 mg, oral, Every 3 hours PRN, Moderate pain or 4-6 (on the numeric pain scale), Starting on Funmilayo 06/07/24 at 1435, Until 06/09/24 at 0048, Assess pain, sedation, and respiratory rate prior to each opioid administration. Or oxyCODONE IR (ROXICODONE) tablet 7.5 mgJump to med 7.5 mg, oral, Every 3 hours PRN, Severe pain or 7-10 (on the numeric pain scale), Starting on Funmilayo 06/07/24 at 1435, Until 06/09/24 at 0048, Assess pain, sedation, and respiratory rate prior to each opioid administration. documented in this encounter Care Teams Operator Electronic Warfare Relationship Specialty Start Date End Date Alfreda Costa [address] [place] [address] PCP - General Internal Medicine 06/01/24 documented as of this encounter
--- OUTSIDE RECORDS SUMMARY | 2024-06-25 19:21 | XMS_ITS | Encounter Summary ---
Demographics Address [address] [place] [address] Mobile Phone Home Phone Preferred Language Lebanese Marital Status Faith Affiliation Unknown Race White Ethnic Group Not or Lati no Author Organization [facility] Address [address] [place] [address] Care Team Providers Care It Assistant Name Role Phone Alfreda Costa Primary Care Provider [phone] Encounter Details Date Type Department Care Team (Late st Contact Info) Description 06/08/2024 Lab Requisition [facility] [address] [place] [address] Unknown, Doctor Unknown Unknown, [place] Social History Tobacco Use Types Packs/Day Years Used Date Smoking Tobacco: Never Assessed Comments Unknown Sex and Gender Information Value Date Recorded Sex Assigned at Female 06/01/2024 11:00 AM EST Legal Sex Female 1:26 AM EDT Gender Identity Not on file Sexual Orientation Not on file documented as of this encounter Plan of Treatment Upcoming Encounters Date Type Department Care Team (Late st Contact Info) Description 07/11/2024 9:00 AM EDT Follow-Up [facility] [address] [place] [address] Shell Mold Bonder: Herman Michael MD [address] [place] [address] [place] [address] documented as of this encounter Procedures * Due to [place] state law, this organization might not be [...] METABOLIC PANEL Routine 06/11/2024 5:00 AM EST HEPATIC FUNCTION PANEL Routine 11:18 AM EST CBC AUTO DIFFERENTIAL Routine 06/09/2024 11:17 AM EST PREALBUMIN Routine 06/09/2024 11:17 AM EST ALBUMIN Routine 06/09/2024 11:16 AM EST BASIC METABOLIC PANEL Routine 06/09/2024 11:16 AM EST documented in this encounter Results * Due to [place] state law, this organization might not be sharing negative HIV tests. * (ABNORMAL) Comprehensive Metabolic Panel (06/18/2024 5:55 AM EST) NA 141 136 - 145 mmol/L 06/18/2024 9:57 AM EST [facility] K 4.5 3.5 - 5.1 mmol/L 06/18/2024 9:57 AM EST [facility] Cl 101 98 - 109 mmol/L 06/18/2024 9:57 AM EST [facility] CO2 32 22 - 32 mmol/L 06/18/2024 9:57 AM EST [facility] Anion Gap 13 >=0 06/18/2024 9:57 AM EST [facility] Glucose 93 60 - 99 mg/dL 06/18/2024 9:57 AM EST [facility] Creatinine 0.70 0.50 - 1.12 mg/dL 06/18/2024 9:57 AM EST [facility] Calcium 9.3 8.4 - 10.4 mg/dL 06/18/2024 9:57 AM [facility] Total Protein 6.4(L) 6.6 - 8.7 g/dL 06/18/2024 9:57 AM [facility] Albumin 3.5 3.5 - 5.0 g/dL 06/18/2024 9:57 AM [facility] Bilirubin, Total 0.1(L) 0.2 - 1.2 mg/dL 06/18/2024 9:57 AM [facility] Alkaline Phosphatase 123 40 - 129 U/L 06/18/2024 9:57 AM [facility] AST 41(H) 0 - 33 U/L 06/18/2024 9:57 AM [facility] ALT 30 <=33 U/L 06/18/2024 9:57 AM [facility] BUN 13 8 - 23 mg/dL 06/18/2024 9:57 AM [facility] eGFR >90 >=60 mL/min/1. 73m2 06/18/2024 9:57 AM [facility] Comment:The estimated glomer ular filtration [...] 2.1 - 4.2 g/dL 06/18/2024 9:57 AM [facility] A/G Ratio 1.2(L) 1.5 - 3.0 06/18/2024 9:57 AM [facility] Blood Structure of peripheral vein / Unknown Venipuncture / Unknown 06/18/2024 5:55 AM EST 06/18/2024 7:40 AM EST Narrative [facility] - 06/18/2024 9:57 AM EST NUR3\S\300\S\A\S\0156\S\S\BED\S\0156 Magdalenajanice Cherryerman DIGITAL HARDWARE DESIGN ENGINEER LAB BLOOD ORDERABLES Final Result [facility] [address] [place] [address] [address] [place] [address], * (ABNORMAL) CBC Auto Differential (06/18/2024 5:55 AM EST) WBC 7.2 4.8 - 10.8 10*3/uL 06/18/2024 9:46 AM EST [facility] RBC 3.67(L) 4.20 - 5.40 10*6/uL 06/18/2024 9:46 AM EST [facility] Hemoglobin 10.2(L) 11.7 - 15.5 g/dL 06/18/2024 9:46 AM EST [facility] Hematocrit 32.7(L) 35.7 - 45.8 % 06/18/2024 9:46 AM EST [facility] MCV 89.1 81.0 - 99.0 fL 06/18/2024 9:46 AM EST [facility] MCH 27.8 26.0 - 34.0 pg 06/18/2024 9:46 AM EST [facility] MCHC 31.2 31.0 - 36.0 g/dL 06/18/2024 9:46 AM EST [facility] RDW 15.2(H) 12.0 - 15.0 % 06/18/2024 9:46 AM EST [facility] RDW Standard Deviation 48.3(H) 36.4 - 46.3 fL 06/18/2024 9:46 AM EST [facility] Platelets 439 140 - 440 10*3/uL 06/18/2024 9:46 AM EST [facility] MPV 8.8(L) 9.4 - 12.3 fL 06/18/2024 9:46 AM [facility] Neutrophil % 42.0(L) 50.0 - 75.0 % 06/18/2024 9:46 AM [facility] Immature Grans % 0.8 0.0 - 0.9 % 06/18/2024 9:46 AM [facility] Lymphocyte % 41.4 20.0 - 44.0 % 06/18/2024 9:46 AM [facility] Monocyte % 9.8 0.0 - 14.0 % 06/18/2024 9:46 AM [facility] Eosinophil % 5.2(H) 0.0 - 5.0 % 06/18/2024 9:46 AM [facility] Basophil % 0.8 0.0 - 2.0 % 06/18/2024 9:46 AM [facility] Neutrophil # 3.03 1.80 - 7.70 10*3/uL 06/18/2024 9:46 AM [facility] Immature Grans # 0.06(H) 0.00 - 0.03 10*3/uL 06/18/2024 9:46 AM [facility] Lymphocyte # 3.00 1.00 - 4.75 10*3/uL 06/18/2024 9:46 AM [facility] Monocyte # 0.70(H) 0.00 - 0.60 10*3/uL 06/18/2024 9:46 AM [facility] Eosinophil # 0.40 0.00 - 0.80 10*3/uL 06/18/2024 9:46 AM [facility] Basophil # 0.10 0.00 - 0.20 10*3/uL 06/18/2024 9:46 AM [facility] nRBC % 0.0 0 - 0 /100 WBCs 06/18/2024 9:46 AM [facility] nRBC # <0.01 0.00 - 0.13 10*3/uL 06/18/2024 9:46 AM EST [facility] Blood Structure of peripheral vein / Unknown Venipuncture / Unknown 06/18/2024 5:55 AM EST 06/18/2024 7:40 AM EST us Doctor Unknown LAB BLOOD ORDERABLES Final Resul t Performing Organization Address City/State/[facility] Co de Phone Number [facility] [address] [facility] [address] [place] [address], * (ABNORMAL) CBC Auto Differential (06/14/2024 6:00 AM EST) WBC 6.1 4.8 - 10.8 10*3/uL 06/14/2024 8:44 AM EST [facility] RBC 3.33(L) 4.20 - 5.40 10*6/uL 06/14/2024 8:44 AM EST [facility] Hemoglobin 9.3(L) 11.7 - 15.5 g/dL 06/14/2024 8:44 AM EST [facility] Hematocrit 28.9(L) 35.7 - 45.8 % 06/14/2024 8:44 AM EST [facility] MCV 86.8 81.0 - 99.0 fL 06/14/2024 8:44 AM EST [facility] MCH 27.9 26.0 - 34.0 pg 06/14/2024 8:44 AM EST [facility] MCHC 32.2 31.0 - 36.0 g/dL 06/14/2024 8:44 AM EST [facility] RDW 14.4 12.0 - 15.0 % 06/14/2024 8:44 AM EST [facility] RDW Standard Deviation 45.1 36.4 - 46.3 fL 06/14/2024 8:44 AM EST [facility] Platelets 470(H) 140 - 440 10*3/uL 06/14/2024 8:44 AM EST [facility] MPV 8.7(L) 9.4 - 12.3 fL 06/14/2024 8:44 AM [facility] Neutrophil % 36.6(L) 50.0 - 75.0 % 06/14/2024 8:44 AM [facility] Immature Grans % 0.5 0.0 - 0.9 % 06/14/2024 8:44 AM [facility] Lymphocyte % 45.6(H) 20.0 - 44.0 % 06/14/2024 8:44 AM [facility] Monocyte % 10.1 0.0 - 14.0 % 06/14/2024 8:44 AM [facility] Eosinophil % 6.4(H) 0.0 - 5.0 % 06/14/2024 8:44 AM [facility] Basophil % 0.8 0.0 - 2.0 % 06/14/2024 8:44 AM [facility] Neutrophil # 2.24 1.80 - 7.70 10*3/uL 06/14/2024 8:44 AM [facility] Immature Grans # 0.03 0.00 - 0.03 10*3/uL 06/14/2024 8:44 AM [facility] Lymphocyte # 2.80 1.00 - 4.75 10*3/uL 06/14/2024 8:44 AM [facility] Monocyte # 0.60 0.00 - 0.60 10*3/uL 06/14/2024 8:44 AM [facility] Eosinophil # 0.40 0.00 - 0.80 10*3/uL 06/14/2024 8:44 AM [facility] Basophil # 0.10 0.00 - 0.20 10*3/uL 06/14/2024 8:44 AM [facility] nRBC % 0.0 0 - 0 /100 WBCs 06/14/2024 8:44 AM [facility] nRBC # <0.01 0.00 - 0.13 10*3/uL 06/14/2024 8:44 AM [facility] Blood Structure of peripheral vein / Unknown Venipuncture / Unknown 06/14/2024 6:00 AM EST 06/14/2024 7:09 AM EST us Doctor Unknown LAB BLOOD ORDERABLES Final Resul t [facility] [address] [place] [address], [place] [phone] * (ABNORMAL) Comprehensive Metabolic Panel (06/14/2024 5:00 AM EST) NA 142 136 - 145 mmol/L 06/14/2024 9:08 AM EST [facility] K 4.2 3.5 - 5.1 mmol/L 06/14/2024 9:08 AM EST [facility] Cl 103 98 - 109 mmol/L 06/14/2024 9:08 AM EST [facility] CO2 32 22 - 32 mmol/L 06/14/2024 9:08 AM EST [facility] Anion Gap 11 >=0 06/14/2024 9:08 AM EST [facility] Glucose 103(H) 60 - 99 mg/dL 06/14/2024 9:08 AM EST [facility] Creatinine 0.66 0.50 - 1.12 mg/dL 06/14/2024 9:08 AM EST [facility] Calcium 8.7 8.4 - 10.4 mg/dL 06/14/2024 9:08 AM EST [facility] Total Protein 6.1(L) 6.6 - 8.7 g/dL 06/14/2024 9:08 AM EST [facility] Albumin 3.2(L) 3.5 - 5.0 g/dL 06/14/2024 9:08 AM EST [facility] Bilirubin, Total 0.1(L) 0.2 - 1.2 mg/dL 06/14/2024 9:08 AM EST [facility] Alkaline Phosphatase 123 40 - 129 U/L 06/14/2024 9:08 AM EST [facility] AST 27 0 - 33 U/L 06/14/2024 9:08 AM EST [facility] ALT 17 <=33 U/L 06/14/2024 9:08 AM EST [facility] BUN 8 8 - 23 mg/dL 06/14/2024 9:08 AM EST [facility] eGFR >90 >=60 mL/min/1. 73m2 06/14/2024 9:08 AM EST [facility] Comment:The estimated glomer ular filtration [...] Globulin, Total 2.9 2.1 - 4.2 g/dL 06/14/2024 9:08 AM EST [facility] A/G Ratio 1.1(L) 1.5 - 3.0 06/14/2024 9:08 AM EST [facility] Blood Structure of peripheral vein / Unknown Venipuncture / Unknown 06/14/2024 5:00 AM EST 06/14/2024 7:09 AM EST Narrative [facility] - 06/14/2024 9:08 AM EST NUR3\S\300\S\A\S\0156\S\S\BED\S\0156 us Magdalena Johnson DIGITAL HARDWARE DESIGN ENGINEER LAB BLOOD ORDERABLES Final Result [facility] [address] [facility] [address] [place] [address], * (ABNORMAL) Basic Metabolic Panel (06/11/2024 5:00 AM EST) NA 136 136 - 145 mmol/L 06/11/2024 9:45 AM EST [facility] K 4.4 3.5 - 5.1 mmol/L 06/11/2024 9:45 AM EST [facility] Cl 97(L) 98 - 109 mmol/L 06/11/2024 9:45 AM EST [facility] CO2 28 22 - 32 mmol/L 06/11/2024 9:45 AM EST [facility] BUN 7(L) 8 - 23 mg/dL 06/11/2024 9:45 AM [facility] Creatinine 0.61 0.50 - 1.12 mg/dL 06/11/2024 9:45 AM [facility] Glucose 106(H) 60 - 99 mg/dL 06/11/2024 9:45 AM EST [facility] Calcium 8.5 8.4 - 10.4 mg/dL 06/11/2024 9:45 AM [facility] Anion Gap 15 >=0 06/11/2024 9:45 AM [facility] eGFR >90 >=60 mL/min/1. 73m2 06/11/2024 9:45 AM EST [facility] Comment:The estimated glomer ular filtration [...] 5:00 AM EST 06/11/2024 7:03 AM EST [facility] - 06/11/2024 9:45 AM EST NUR3\S\300\S\A\S\0156\S\S\BED\S\0156 us Doctor Unknown LAB BLOOD ORDERABLES Final Resul t [facility] [address] [facility] [address] [place] [address], [place] [phone] * (ABNORMAL) CBC Auto Differential (06/11/2024 5:00 AM EST) WBC 6.0 4.8 - 10.8 10*3/uL 06/11/2024 9:41 AM EST [facility] RBC 3.30(L) 4.20 - 5.40 10*6/uL 06/11/2024 9:41 AM EST [facility] Hemoglobin 9.2(L) 11.7 - 15.5 g/dL 06/11/2024 9:41 AM EST [facility] Hematocrit 28.4(L) 35.7 - 45.8 % 06/11/2024 9:41 AM EST [facility] MCV 86.1 81.0 - 99.0 fL 06/11/2024 9:41 AM EST [facility] MCH 27.9 26.0 - 34.0 pg 06/11/2024 9:41 AM EST [facility] MCHC 32.4 31.0 - 36.0 g/dL 06/11/2024 9:41 AM EST [facility] RDW 14.3 12.0 - 15.0 % 06/11/2024 9:41 AM EST [facility] RDW Standard Deviation 43.8 36.4 - 46.3 fL 06/11/2024 9:41 AM EST [facility] Platelets 537(H) 140 - 440 10*3/uL 06/11/2024 9:41 AM EST [facility] MPV 9.2(L) 9.4 - 12.3 fL 06/11/2024 9:41 AM EST [facility] Neutrophil % 60.4 50.0 - 75.0 % 06/11/2024 9:41 AM EST [facility] Immature Grans % 0.7 0.0 - 0.9 % 06/11/2024 9:41 AM EST [facility] Lymphocyte % 20.1 20.0 - 44.0 % 06/11/2024 9:41 AM EST [facility] Monocyte % 12.9 0.0 - 14.0 % 06/11/2024 9:41 AM EST [facility] Eosinophil % 5.4(H) 0.0 - 5.0 % 06/11/2024 9:41 AM EST [facility] Basophil % 0.5 0.0 - 2.0 % 06/11/2024 9:41 AM EST [facility] Neutrophil # 3.61 1.80 - 7.70 10*3/uL 06/11/2024 9:41 AM EST [facility] Immature Grans # 0.04(H) 0.00 - 0.03 10*3/uL 06/11/2024 9:41 AM EST [facility] Lymphocyte # 1.20 1.00 - 4.75 10*3/uL 06/11/2024 9:41 AM EST [facility] Monocyte # 0.80(H) 0.00 - 0.60 10*3/uL 06/11/2024 9:41 AM EST [facility] Eosinophil # 0.30 0.00 - 0.80 10*3/uL 06/11/2024 9:41 AM EST [facility] Basophil # <0.03 0.00 - 0.20 10*3/uL 06/11/2024 9:41 AM EST [facility] nRBC % 0.0 0 - 0 /100 WBCs 06/11/2024 9:41 AM EST [facility] nRBC # <0.01 0.00 - 0.13 10*3/uL 06/11/2024 9:41 AM [facility] Blood Structure of peripheral vein / Unknown 06/11/2024 5:00 AM EST 06/11/2024 7:03 AM EST us Doctor Unknown LAB BLOOD ORDERABLES Final Resul t [facility] [address] [facility] [address] [place] [address], [place] [phone] * (ABNORMAL) Hepatic Function Panel (06/09/2024 11:18 AM EST) Total Protein 7.0 6.6 - 8.7 g/dL 06/09/2024 12:57 PM EST [facility] Albumin 3.3(L) 3.5 - 5.0 g/dL 06/09/2024 12:57 PM EST [facility] Globulin, Total 3.7 2.1 - 4.2 g/dL 06/09/2024 12:57 PM EST [facility] Bilirubin, Total 0.2 0.2 - 1.2 mg/dL 06/09/2024 12:57 PM EST [facility] Bilirubin, Direct 0.1 <=0.3 mg/dL 06/09/2024 12:57 PM EST [facility] Alkaline Phosphatase 127 40 - 129 U/L 06/09/2024 12:57 PM EST [facility] AST 20 0 - 33 U/L 06/09/2024 12:57 PM EST [facility] ALT 9 <=33 U/L 06/09/2024 12:57 PM EST [facility] Bilirubin, Indirect 0.10 <=0.70 mg/dL 06/09/2024 12:57 PM EST [facility] A/G Ratio 0.9(L) 1.5 - 3.0 06/09/2024 12:57 PM EST [facility] Blood Structure of peripheral vein / Unknown 06/09/2024 11:18 AM EST 06/09/2024 12:26 PM EST [facility] - 06/09/2024 12:57 PM EST NUR3\S\300\S\A\S\0156\S\S\BED\S\0156 us Aure Richter MD LAB BLOOD ORDERABLES Sherly l Result Performing Organization Address [facility]/ZIP Co de Phone Number [facility] [address] [address], [place] [phone] * (ABNORMAL) Prealbumin (06/09/2024 11:17 AM EST) Pathologist [facility] Prealbumin 16(L) 20 - 40 mg/dL 06/09/2024 1:16 PM EST [facility] Blood Structure of peripheral vein / Unknown Venipuncture / Unknown 06/09/2024 11:17 AM EST 06/09/2024 11:17 AM EST Narrative [facility] - 06/09/2024 1:16 PM EST NUR3\S\300\S\B\S\0156\S\S\BED\S\0156 us Doctor Unknown LAB BLOOD ORDERABLES Final Resul t Performing Organization Address [facility] Co de Phone Number [facility] [address] [address], [place] [phone] * (ABNORMAL) CBC Auto Differential (06/09/2024 11:17 AM EST) Pathologist [facility] WBC 9.1 4.8 - 10.8 10*3/uL 06/09/2024 12:46 PM EST [facility] RBC 3.15(L) 4.20 - 5.40 10*6/uL 06/09/2024 12:46 PM EST [facility] Hemoglobin 8.8(L) 11.7 - 15.5 g/dL 06/09/2024 12:46 PM EST [facility] Hematocrit 27.8(L) 35.7 - 45.8 % 06/09/2024 12:46 PM EST [facility] MCV 88.3 81.0 - 99.0 fL 06/09/2024 12:46 PM EST [facility] MCH 27.9 26.0 - 34.0 pg 06/09/2024 12:46 PM EST [facility] MCHC 31.7 31.0 - 36.0 g/dL 06/09/2024 12:46 PM EST [facility] RDW 14.0 12.0 - 15.0 % 06/09/2024 12:46 PM EST [facility] RDW Standard Deviation 44.7 36.4 - 46.3 fL 06/09/2024 12:46 PM [facility] Platelets 736(H) 140 - 440 10*3/uL 06/09/2024 12:46 PM [facility] MPV 8.8(L) 9.4 - 12.3 fL 06/09/2024 12:46 PM [facility] Neutrophil % 52.8 50.0 - 75.0 % 06/09/2024 12:46 PM [facility] Immature Grans % 0.3 0.0 - 0.9 % 06/09/2024 12:46 PM [facility] Lymphocyte % 29.2 20.0 - 44.0 % 06/09/2024 12:46 PM [facility] Monocyte % 13.1 0.0 - 14.0 % 06/09/2024 12:46 PM [facility] Eosinophil % 3.8 0.0 - 5.0 % 06/09/2024 12:46 PM [facility] Basophil % 0.8 0.0 - 2.0 % 06/09/2024 12:46 PM [facility] Neutrophil # 4.81 1.80 - 7.70 10*3/uL 06/09/2024 12:46 PM [facility] Immature Grans # 0.03 0.00 - 0.03 10*3/uL 06/09/2024 12:46 PM [facility] Lymphocyte # 2.70 1.00 - 4.75 10*3/uL 06/09/2024 12:46 PM [facility] Monocyte # 1.20(H) 0.00 - 0.60 10*3/uL 06/09/2024 12:46 PM [facility] Eosinophil # 0.40 0.00 - 0.80 10*3/uL 06/09/2024 12:46 PM EST [facility] Basophil # 0.10 0.00 - 0.20 10*3/uL 06/09/2024 12:46 PM EST [facility] nRBC % 0.0 0 - 0 /100 WBCs 06/09/2024 12:46 PM EST [facility] nRBC # <0.01 0.00 - 0.13 10*3/uL 06/09/2024 12:46 PM EST [facility] Blood Structure of peripheral vein / Unknown Venipuncture / Unknown 06/09/2024 11:17 AM EST 06/09/2024 11:17 AM EST Doctor Unknown LAB BLOOD ORDERABLES Final Resul t Performing Organization Address [facility] de Phone Number [address] [address], [place] [phone] * (ABNORMAL) Albumin (06/09/2024 11:16 AM EST) Pathologist [facility] Albumin 3.3(L) 3.5 - 5.0 g/dL 06/09/2024 12:55 PM EST [facility] Blood Structure of peripheral vein / Unknown Venipuncture / Unknown 06/09/2024 11:16 AM EST 06/09/2024 11:16 AM EST Narrative [facility] - 06/09/2024 12:55 PM EST NUR3\S\300\S\B\S\0156\S\S\BED\S\0156 NUR3\S\300\S\B\S\0156\S\S\BED\S\0156 us Doctor Unknown LAB BLOOD ORDERABLES Final Resul t Performing Organization Address [facility]/ZIP Co de Phone Number [facility] [address] [address], [place] [phone] * Basic Metabolic Panel (06/09/2024 11:16 AM EST) NA 139 136 - 145 mmol/L 06/09/2024 12:55 PM [facility] K 4.2 3.5 - 5.1 mmol/L 06/09/2024 12:55 PM [facility] Cl 100 98 - 109 mmol/L 06/09/2024 12:55 PM [facility] CO2 32 22 - 32 mmol/L 06/09/2024 12:55 PM [facility] BUN 8 8 - 23 mg/dL 06/09/2024 12:55 PM [facility] Creatinine 0.67 0.50 - 1.12 mg/dL 06/09/2024 12:55 PM [facility] Glucose 93 60 - 99 mg/dL 06/09/2024 12:55 PM [facility] Calcium 9.1 8.4 - 10.4 mg/dL 06/09/2024 12:55 PM [facility] Anion Gap 11 >=0 06/09/2024 12:55 PM [facility] eGFR >90 >=60 mL/min/1. 73m2 06/09/2024 12:55 PM [facility] Comment:The estimated glomer ular filtration [...] 11:16 AM EST 06/09/2024 11:16 AM EST [facility] - 06/09/2024 12:55 PM EST NUR3\S\300\S\B\S\0156\S\S\BED\S\0156 NUR3\S\300\S\B\S\0156\S\S\BED\S\0156 us Doctor Unknown LAB BLOOD ORDERABLES Final Resul t [facility] [address] [facility] [address] [place] [address], documented in this encounter Visit Diagnoses Not on filedocumented in this encounter Care Teams It Assistant Relationship Specialty Start Date End Date Alfreda Costa [address] [place] [address] PCP - General Internal Medicine 06/01/24 documented as of this encounter
--- OUTSIDE RECORDS SUMMARY | 2024-06-25 19:21 | XMS_ITS | Encounter Summary ---
Demographics Address [address] [place] [address] Mobile Phone Home Phone Email Address Preferred Language Cape Verdean Marital Status Moravian Affiliation Unknown Race White Ethnic Group Unknown Author Organization [facility] Address [address] [place] [address] Support Name Relationship Address Phone Houston Haas Emergency Contact 2 [address] [place] [address] Shana Danielle Emergency Contact [address] [place] [address] Care Team Providers Care Community Relations Assistant Name Role Phone Alfreda Costa DO Primary Care Provider [phone] Leela Nieto CIRCLE SAW OPERATOR Unavailable Unavailable Reason for Visit * Reason Comments Cough Encounter Details Date Type Department Care Team (Late st Contact Info) Description 04/27/2021 Telephone [facility] [address] [place] [phone] Alfreda Costa DO [address] [place] [address] Cough Social History Tobacco Use Types Packs/Day Years [...] encounter Miscellaneous Notes * Telephone Encounter - Zoe Ross - 04/28/2021 9:50 AM EST Spoke to patient and shared message below with her from Dr. Costa. She verbalizes understanding of message and agrees with recommendations. Patient states she is going to schedule an appt at the [facility] clinic that is near her house fortesting. She will call with any persistent/worsening sx's in the meantime. * Telephone Encounter - Shanita England - 04/27/2021 5:23 PM EST Left message to return call on VM #1 - * Telephone Encounter - Alfreda Costa DO - 04/27/2021 5:02 PM EST Pt needs a positive test for flu in order to warrant tamiflu. Can offer a RC visit to test * Telephone Encounter - Shanita England - 04/27/2021 4:25 PM EST Plan/disposition: Message to provider for orders. PLEASE ADVISE-- Patient was DX with COVID on 04/15/21 khushboo home test and PCR at [facility] - Patient was feeling better until last night - started with dry mouth - cough - headache - Looking for Tamiflu - pended - patient wants call back when sent - Disease Management Program Membership: None Chief complaint: Patient, Dorothy Haas 60 y.o. female calling with complaints of cough - headache - dry mouth- is hydrating - Onset: last night Emergent symptoms: denies chest pain, sudden SOB, wheezing, retractions, choking, stridor, drooling, cyanosis, and frothy sputum. Fever: not elevated Travel: No Associated symptoms/ROS: cough- loose and productive- pale yellow LMP: post Pertinent Hx: Patient denies respiratory hx. Have you received a flu shot this year:no New Allergies/CurrentAllergies: Ampicillin, Keflex, and Penicillin [penicillin g potassium] Current home Tx:OTC medication- Acetaminophen and cough suppressant Effectiveness of home Tx: not very effective * Telephone Encounter - Ventura Lanny - 04/27/2021 4:21 PM EST Pt tested positve on 04/15/21.pt cough diarhea,headache. documented in this encounter Plan of Treatment Upcoming Encounters Date Type Department Care Team (Late st Contact Info) Description 06/27/2024 11:00 AM EST Office Visit [facility] 4 [place] [address] Deanne Ibarra PA 4 [place] [address] U 08/16/2024 10:25 AM EDT CPE - Comprehensive Physical Exam [facility] [address] [place] [address] Alfreda Costa DO 4 [place] [address] Physical - [facility] SENT TO [facility] 02/27/2025 1:15 PM EST Radiology [address] [facility] 5 [place] [address] documented as of this encounter Visit Diagnoses Not on filedocumented in this encounter Care Teams Community Relations Assistant Relationship Specialty Start Date End Date Alfreda Costa DO 4 [place] [address] PCP - General Internal Medicine 09/03/19 Leela Nieto NP 4 [place] [address] PCP - Backup PCP Internal Medicine 09/03/19 11/17/22 documented as of this encounter
--- OUTSIDE RECORDS SUMMARY | 2024-06-25 19:22 | XMS_ITS | Encounter Summary ---
Demographics Address [address] [place] [address] Mobile Phone Home Phone Email Address Preferred Language Angolan Marital Status Mandaen Affiliation Unknown Race White Ethnic Group Unknown Author Organization [facility] Address [address] [place] [address] Support Name Relationship Address Phone [place] Haas Emergency Contact 2 04[address] [place] [address] Shana Danielle Emergency Contact [address] [place] [address] Care Team Providers Care Machine Maintenance Repairer Name Role Phone Elizabet Hair MD Primary Care Provider [phone] Marybeth Chacon MD Primary Care Provider Alfreda Costa DO Primary Care Provider [phone] Leela Nieto JOIST SETTER Unavailable Unavailable Encounter Details Date Type Department Care Team (Late st Contact Info) Description 03/31/2018 Orders Only [address] [facility] [address] [place] [phone] Arue Mays MD [address] [place] [phone] Social History Tobacco Use Types Packs/Day Years [...] Description 06/27/2024 11:00 AM EST Office Visit [facility] [address] [facility] [place] [phone] Deanne Ibarra PA 4 [place] [address] HFU 08/16/2024 10:25 AM EDT CPE - Comprehensive Physical Exam [facility] [address] [facility] [place] [phone] Alfreda Costa DO 4 [place] [address] Physical - [facility] SENT TO [facility] 02/27/2025 1:15 PM EST Radiology [address] [facility] 5 [place] [phone] documented as of this encounter Procedures * Due to [place] Trill[employer] law, this organization might not be sharing negative HIV tests. Procedure Name Priority Date/Time Associated Diagnosis Comments ACTIVATED PARTIAL THROMBOPLASTIN TIME (APTT), PLASMA Routine 03/31/2018 9:39 AM EST Easy bruising PROTHROMBIN TIME (PT) (INR), BLOOD Routine 03/31/2018 9:39 AM EST Easy bruising VON WILLEBRAND FACTOR ANTIGEN Routine 03/31/2018 9:39 AM EST Easy bruising CBC INCLUDES DIFFERENTIAL AND PLATELET COUNT Routine 03/31/2018 9:39 AM EST Easy bruising COMPREHENSIVE METABOLIC PANEL WITH GFR Routine 03/31/2018 9:39 AM EST Easy bruising documented in this encounter Results * Due to [place] Trill[employer] law, this organization might not be sharing negative HIV tests. * VON WILLEBRAND FACTOR ANTIGEN (03/31/2018 9:39 AM EST) von Willebrand factor Ag actual/Normal (Platelet Poor Plasma) 90 50 - 217 % [employer] 03/31/2018 9:39 AM EST 03/31/2018 5:45 PM EST Narrative Resulting Agency Comment [id number] Aure Mays MD LABORATORY Final Resu lt Performing Organization Address [facility] de Phone Number [facility] [address] [place] [address] * ACTIVATED PARTIAL THROMBOPLASTIN TIME (APTT), PLASMA (03/31/2018 9:39 AM EST) Thromboplastin Time 27 22 - 34 sec [facility] Comment: This test has not been validated for monitoring unfractionated heparin therapy. For testing that is validated for this type of therapy, please refer to the Heparin Anti-Xa assay (test code 68345). For additional information, please refer to http://[employer].Huxiu.com/faq/HTR241 (This link is being provided for informational/educational purposes only.) 03/31/2018 9:39 AM EST 03/31/2018 5:45 PM EST Narrative Resulting Agency Comment [id number] us Aure Mays MD LAB SAME DAY RESULT Final Result Performing Organization Address [facility] de Phone Number [facility] [address] [place] [address] * PROTHROMBIN TIME (PT) (INR), BLOOD (03/31/2018 9:39 AM EST) INR 0.9 [facility] Comment: Reference Range ? 0.9-1.1 Moderate-intensity Warfarin Therapy 2.0-3.0 Higher-intensity Warfarin Therapy ?? 3.0-4.0 PT 9.7 9.0 - 11.5 sec [facility] Comment: For more information on this test, go to: http://B[employer] Therap[employer].Preventice/faq/JQZ416 03/31/2018 9:39 AM EST 03/31/2018 5:45 PM EST Narrative Resulting Agency Comment [id number] Aure Mays MD LAB SAME DAY RESULT Final Result [facility] [address] [place] [address] * (ABNORMAL) COMPREHENSIVE METABOLIC PANEL WITH GFR (03/31/2018 9:39 AM EST) Glucose 97 65 - 99 mg/dL [facility] Comment:Fasting reference in terval Urea Nitrogen Blood (BUN) 13 7 - 25 mg/dL [facility] Creatinine 0.79 0.50 - 1.05 mg/dL [facility] Comment: For patients >49 years of age, the reference limit for Creatinine is approximately 13% higher for people identified as -Colombian. GFR 84 > OR = 60 mL/min/1 .73m2 [facility] GFR () 98 > OR = 60 mL/min/1 .73m2 [facility] BUN/Creatinine Ratio NOT APPLICABLE 6 - 22 (calc) [facility] Sodium 139 135 - 146 mmol/L [facility] Potassium 4.1 3.5 - 5.3 mmol/L [facility] Chloride 101 98 - 110 mmol/L [facility] Carbon dioxide 29 20 - 32 mmol/L [facility] Calcium 9.0 8.6 - 10.4 mg/dL [facility] Protein Total (Serum) 6.7 6.1 - 8.1 g/dL [facility] Albumin 4.3 3.6 - 5.1 g/dL [facility] Globulin 2.4 1.9 - 3.7 g/dL (calc) [facility] Albumin/Globulin 1.8 1.0 - 2.5 (calc) [facility] Bilirubin Total 0.4 0.2 - 1.2 mg/dL [facility] Alkaline phosphatase 79 33 - 130 U/L [facility] AST (SGOT) 37(H) 10 - 35 U/L [facility] ALT (SGPT) 39(H) 6 - 29 U/L [facility] 03/31/2018 9:39 AM EST 03/31/2018 5:45 PM EST Narrative [facility] - 03/31/2018 9:48 PM EST Please note that this estimated GFR [...] needs for GFR calculation. Resulting Agency Comment [id number] us Aure Mays MD LABORATORY Final Resu lt Performing Organization Address [facility] de Phone Number [facility] [address] [place] [address] * (ABNORMAL) CBC INCLUDES DIFFERENTIAL AND PLATELET COUNT (03/31/2018 9:39 AM EST) WBC 5.6 3.8 - 10.8 Thousand/u L [facility] RBC 4.16 3.80 - 5.10 Million/uL [facility] Hemoglobin 12.0 11.7 - 15.5 g/dL [facility] Hematocrit 36.2 35.0 - 45.0 % [facility] MCV 87.0 80.0 - 100.0 fL [facility] MCH 28.8 27.0 - 33.0 pg [facility] MCHC 33.1 32.0 - 36.0 g/dL [facility] RDW 13.3 11.0 - 15.0 % [facility] PLT 268 140 - 400 Thousand/u L [facility] MPV 10.2 7.5 - 12.5 fL [facility] Neutrophils # 2296 1500 - 7800 cells/uL [facility] Lymphocytes # 2621 850 - 3900 cells/uL [facility] Monocytes # 661 200 - 950 cells/uL [facility] Eosinophils # 11(L) 15 - 500 cells/uL [facility] Basophils # 11 0 - 200 cells/uL [facility] Neutrophils % 41 % [facility] Lymphocytes % 46.8 % [facility] Monocytes % 11.8 % [facility] Eosinophils % 0.2 % [facility] Basophils % 0.2 % [facility] 03/31/2018 9:39 AM EST 03/31/2018 5:45 PM EST Narrative Resulting Agency Comment [id number] us Aure Mays MD LAB SAME DAY RESULT Final Result Performing Organization Address [facility] Co de Phone Number [facility] [address] [place] [address] documented in this encounter Visit Diagnoses Diagnosis Easy bruising Other symptoms involving skin and integumentary tissues documented in this encounter Additional Health Concerns Infection Onset Date Last Indicated Resolved Time COVID-19 Rule-Out 01/05/2021 01/05/2021 01/06/2021 11:16 AM EDT documented as of this encounter Care Teams Machine Maintenance Repairer Relationship Specialty Start Date End Date Elizabet Hair MD PCP - General 02/15/18 08/15/18 Marybeth Chacon MD PCP - General Internal Medicine 08/16/18 09/02/19 Alfreda Costa DO [address] [facility] [place] [address] PCP - General Internal Medicine 09/03/19 Leela Nieto NP 4 [place] [address] PCP - Backup PCP Internal Medicine 09/03/19 11/17/22 documented as of this encounter
--- OUTSIDE RECORDS SUMMARY | 2024-06-25 19:22 | XMS_ITS | Encounter Summary ---
Demographics Address [address] [place] [address] Mobile Phone Home Phone Email Address [email or web address] Preferred Language British Virgin Islander Marital Status Restoration Affiliation Unknown Race White Ethnic Group Unknown Author Organization [facility] Address [address] [place] [address] Support Name Relationship Address Phone Houston Jangain Emergency Contact 2 [address] [place] [address] Shana Danielle Emergency Contact [address] [place] [address] Care Team Providers Care Agricultural Aircraft Pilot Name Role Phone CostaAlfreda Primary Care Provider [phone] Leela Nieto STENO POOL SUPERVISOR Unavailable Unavailable Encounter Details Date Type Department Care Team (Late st Contact Info) Description 04/06/2022 Telephone [facility] [address] [place] [address] Damian Rudolph MD [address] [place] [id number] Social History Tobacco Use Types Packs/Day Years [...] encounter Miscellaneous Notes * Telephone Encounter - Dawn Lee - 05/14/2022 10:[address] booked - called patient and scheduled office visit with Dr. Rudolph. Patient declined sooner appts for the week of 06/07 Future Appointments Date Time Provider Department Phone 05/20/22 1:00 PM [facility] [id number] [facility] [address] [phone] 06/28/22 10:30 AM Damian Rudolph MD [facility] Pul[facility] [address] * Telephone Encounter - Dawn Lee - 05/12/2022 10:06 AM EST Called radi and spoke with Lanny. She is sending the auth dept an email for an update as there are no new notes * Telephone Encounter - Dawn Lee - 05/12/2022 9:37 AM EST Called Radi and held for over 5 minutes - will try again later * Telephone Encounter - Dawn Lee - 05/05/2022 1:40 PM EST Called patient and she states she spoke with someone in radi this morning who is going to be obtaining new auth Please monitor for CT date then schedule office visit with Dr. Rudolph * Telephone Encounter - Dawn Lee - 05/03/2022 2:55 PM EST Called patient and left voicemail to call back. * Telephone Encounter - Dawn Lee - 04/12/2022 9:53 AM EST Called patient and asked about rescheduling Dr. Rudolph and CT scan - pt states she was mistaken because she had a CXR and thought it was the same testing. She was willing to reschedule however not at this time. Patient's dad is in the hospital and she will be giving us a call back after the new year. * Telephone Encounter - Linda Farias - 04/12/2022 8:13 AM EST PSS, please reach out to patient if she would like to move forward with CT and also canceled visit with Dr. Rudolph? And if she does a new CT order will need to be placed as a new auth is needed as previous has now . If moving forward with CT I can place order * Telephone Encounter - Renee Gardner - 04/06/2022 7:02 PM EST Good afternoon i wanted to reach out and let you know we have been unable to reach the patient to schedule the CT Chest I am showing we will remove this order on 04/09/2022.I am also showing unfortunately we are currently booked up until after April..Please verify if insurance will be changing for 2022 so we can obtain an auth if the exam is still needed Thank you and have a great day from [facility] Radiology Scheduling Department documented in this encounter Plan of Treatment Upcoming Encounters Date Type Department Care Team (Late st Contact Info) Description 06/27/2024 11:00 AM EST Office Visit [facility] 4 [place] [address] Deanne Ibarra PA 4 [place] [address] [facility] 08/16/2024 10:25 AM EDT CPE - Comprehensive Physical Exam [facility] [place] [address] Alfreda Costa DO 4 [place] [address] Physical - LETTER SENT TO [facility] 02/27/2025 1:15 PM EST Radiology [facility]. Mammography 5 [place] [address] documented as of this encounter Visit Diagnoses Not on filedocumented in this encounter Care Teams Agricultural Aircraft Pilot Relationship Specialty Start Date End Date Alfreda Costa DO 4 [place] [address] PCP - General Internal Medicine 09/03/19 Leela Nieto NP 4 [place] [address] PCP - Backup PCP Internal Medicine 09/03/19 11/17/22 documented as of this encounter
--- OUTSIDE RECORDS SUMMARY | 2024-06-25 19:22 | XMS_ITS | Encounter Summary ---
Demographics Address [address] [place] [address] Mobile Phone Home Phone Email Address [email or web address] Preferred Language Ugandan Marital Status Caodaism Affiliation Unknown Race White Ethnic Group Unknown Author Organization [facility] Address [address] [place] [address] Support Name Relationship Address Phone [place] Haas Emergency Contact 2 [address] [place] [address] Shana Danielle Emergency Contact [address] [place] [address] Care Team Providers Care Mobile Heavy Equipment Operator Name Role Phone Alfreda Costa Primary Care Provider [phone] Leela Nieto BRIM RAISER Unavailable Unavailable Encounter Details Date Type Department Care Team (Late st Contact Info) Description 07/15/2022 Orders Only [employer] [facility] Clerk [address] [place] [phone] Amie Wade CRNP [address] [place] [address] Social History Tobacco Use Types Packs/Day Years [...] as of this encounter Miscellaneous Notes * Result Encounter Note - Amie Wade CRNP - 07/15/2022 2:35 PM EDT Neg vaginal cultures * Result Encounter Note - Amie Wade CRNP - 07/15/2022 2:35 PM EDT Neg pap and neg hpv. Next pap due in 5 yrs. * Result Encounter Note - Krysta Mccurdy - 07/15/2022 2:35 PM EDT Pt not checking MC. Normal results letter with recommendations sent to pt. On problem list. documented in this encounter Plan of Treatment Upcoming Encounters Date Type Department Care Team (Late st Contact Info) Description 06/27/2024 11:00 AM EST Office Visit [facility] 4 [place] [address] Deanne Ibarra PA [address] [place] [address] HFU 08/16/2024 10:25 AM EDT CPE - Comprehensive Physical Exam [facility] [address] [place] [address] Alfreda Costa DO 4 [place] [address] Physical - [facility] 02/27/2025 1:15 PM EST Radiology [address] [facility] [address] [place] [address] documented as of this encounter Procedures * Due to [place] state law, this organization might not be sharing negative HIV tests. Procedure Name Priority Date/Time Associated Diagnosis Comments BV/VAGINITIS PANELDNA PROBE(AFFIRM) Routine 07/15/2022 2:37 PM EDT Vaginal discharge THINPREP TIS PAP AND HPV RNA, HR E6/E7, TMA Routine 07/15/2022 2:35 PM EDT Screening for malignant neoplasm of cervix documented in this encounter Results * Due to [place] state law, this organization might not be sharing negative HIV tests. * BV/VAGINITIS PANELDNA PROBE(AFFIRM) (07/15/2022 2:37 PM EDT) Trichomonas vaginalis rRNA (Genital) NOT DETECTED NOT DETECTED [facility] Gardnerella vaginalis rRNA (Genital) NOT DETECTED NOT DETECTED [facility] Latha sp rRNA (Vag) NOT DETECTED NOT DETECTED [facility] 07/15/2022 2:37 PM EDT 07/15/2022 10:18 PM EDT Narrative Resulting Agency Comment [id number] us Amie Mauro [facility] Final Resul t Performing Organization Address City/State/[facility] Co de Phone Number [facility] [address] [place] [address] * THINPREP TIS PAP AND HPV RNA, HR E6/E7, TMA (07/15/2022 2:35 PM EDT) Clinical information Postmenopausal [facility] Date last menstrual period POSTMENOPAUSAL [facility] Date of previous PAP smear 07/22/2016 [facility] Date of previous biopsy NONE GIVEN [facility] Specimen source (Cvx/Vag) Cervix [facility] Statement of Adequacy (Cvx/Vag) SATISFACTORY FOR EVALUATION [facility] Cytology, Pap Smear Negative for intraepithelial lesion or malignancy. Atrophic pattern; predominantly parabasal cells [facility] Cytology study comment (Cvx/Vag) This Pap test has been evaluated with computer assisted technology. [facility] It Risk Analyst (Cvx/Vag) NAOMY GREEN(ASCP) CT screening location: [place] [address] [facility] COMMENT SEE NOTE [facility] Comment: EXPLANATORY NOTE: The Pap is [...] MRNA E6/E7 Not Detected Not Detected [facility] Comment: Methodology: Alteration Specialist-Mediated Amplification This assay detects E6/E7 viral messenger RNA (mRNA) from 14 high-risk HPV types (16,18,31,33,35,39,45,51,52,56,58,59,66,68). Cervical sources are required for HPV testing. If a vaginal source from a patient who has had a total hysterectomy with removal of cervix was submitted, please contact the testing laboratory for alternative testing options. For additional information, please refer to http://education.mo9 (moKredit)/faq/LUC798p0 (This link if provided for information/ educational purposes only.) Cervical 07/15/2022 2:35 PM EDT 07/16/2022 5:57 AM EDT Narrative Resulting Agency Comment [id number] us Amie [facility] Final Result Performing Organization Address City/State/[facility] Co de Phone Number [facility] [address] [place] [address] documented in this encounter Visit Diagnoses Diagnosis Screening for malignant neoplasm of cervix Screening for malignant neoplasm of the cervix Vaginal discharge Leukorrhea, not specified as infective documented in this encounter Care Teams Mobile Heavy Equipment Operator Relationship Specialty Start Date End Date Alfreda Costa DO [address] [place] [address] PCP - General Internal Medicine 09/03/19 Leela Nieto NP [address] [place] [address] PCP - Backup PCP Internal Medicine 09/03/19 11/17/22 documented as of this encounter
--- OUTSIDE RECORDS SUMMARY | 2024-06-25 19:22 | XMS_ITS | Encounter Summary ---
Demographics Address [address] [place] [address] Mobile Phone Home Phone Email Address [email or web address] Preferred Language Yemeni Marital Status Pentecostal Affiliation Unknown Race White Ethnic Group Unknown Author Organization [facility] Address [address] [place] [address] Support Name Relationship Address Phone [place] [facility] Emergency Contact 2 [address] [place] [address] Shana Danielle Emergency Contact [address] [place] [address] Care Team Providers Care Supervisor Newspaper Deliveries Name Role Phone IgorAlfreda Primary Care Provider [phone] Reason for Visit * Reason Comments Imaging Request Encounter Details Date Type Department Care Team (Late st Contact Info) Description 02/04/2023 Telephone [facility] Pulmonary [address] [facility] [address] [place] [address] Damian Rudolph MD [address] [place], [place] [id number] Imaging Request Social History Tobacco Use Types Packs/Day Years Used Date Smoking Tobacco: Never Smokeless Tobacco: Never Alcohol Use Standard Drinks/Week Comments Not Currently 1 (1 standard drink = 0.6 oz pure alcohol) occasional, 1 drink per week at the most PHQ-2 Answer Date Recorded PHQ-2 Score 4 08/02/2022 Intimate Partner Violence Answer Date R ecorded [...] encounter Miscellaneous Notes * Telephone Encounter - [place], [place] - 02/04/2023 9:51 AM EDTSummary: Images Requested/[facility] Requested CT Chest done 11/27/22 & CXR's done 11/25/22 @ [facility] via right fax. Currently awaiting images (F) (P) documented in this encounter Plan of Treatment Upcoming Encounters Date Type Department Care Team (Late st Contact Info) Description 06/27/2024 11:00 AM EST Office Visit [facility] [address] [place] [address] Deanne Ibarra PA [address] [place] [address] HFU 08/16/2024 10:25 AM EDT CPE - Comprehensive Physical Exam [facility] [address] [place] [phone] Alfreda Costa DO [address] [place] [address] Physical - [facility] 02/27/2025 1:15 PM EST Radiology [address] [facility] [address] [place] [phone] documented as of this encounter Visit Diagnoses Not on filedocumented in this encounter Care Teams Supervisor Newspaper Deliveries Relationship Specialty Start Date End Date Alfreda Costa DO [address] [place] [address] PCP - General Internal Medicine 09/03/19 documented as of this encounter
--- OUTSIDE RECORDS SUMMARY | 2024-06-25 19:22 | XMS_ITS | Encounter Summary ---
Demographics Address 2 [address] [place] [address] Mobile Phone Home Phone Email Address [email or web address] Preferred Language Cymro Marital Status Pentecostalism Affiliation Unknown Race White Ethnic Group Unknown Author Organization [facility] Address [address] [place] [address] Support Name Relationship Address Phone [place] [facility] Emergency Contact 2 04/[address] [place] [address] Shana Danielle Emergency Contact [address] [place] [address] Care Team Providers Care Tractor Engine Mechanic Name Role Phone Baldo Parmar MD Primary Care Provider Unavaila Ami Ansari-Megan Unavailable Unavailab Elizabet Hawthorne MD Primary Care Provider [phone] Elizabet Hair MD Primary Care Provider [phone] Marybeth Chacon MD Primary Care Provider [phone] Alfreda Costa DO Primary Care Provider [phone] Leela Nieto GUN NUMBERER Unavailable Unavailable Encounter Details Date Type Department Care Team ([facility] Contact Info) Description 04/14/2010 Orders Only [facility] Pre-Admission Testing [address] [facility] [address] [place] [address] Xiao Rivers, ADOLFO Social History Tobacco Use Types Packs/Day Years [...] Encounters Date Type Department Care Team ([facility] Contact Info) Description 06/27/2024 11:00 AM EST Office Visit [facility] [address] [place] [phone] Deanne Ibarra PA [address] [place] [address] HFU 08/16/2024 10:25 AM EDT CPE - Comprehensive Physical Exam [facility] 4 [place] [phone] Alfreda Costa DO 4 [place] [address] Physical - LETTER SENT TO [facility] 02/27/2025 1:15 PM EST Radiology [facility] 5 [place] [phone] documented as of this encounter Procedures * Due to [facility] law, this organization might not be sharing negative HIV tests. Procedure Name Priority Date/Time Associated Diagnosis Comments BASIC METABOLIC PANEL W/GLOMERULAR FILTRATION RATE (EGFR) Routine 04/14/2010 Uncomplicated varicose veins CBC W/O DIFFERENTIAL Routine 04/14/2010 Uncomplicated varicose veins documented in this encounter Results * Due to [facility] law, this organization might not be sharing negative HIV tests. * CBC W/O DIFFERENTIAL (04/14/2010) WHITE BLOOD COUNT 5.9 3.8 - 10.8 THOUS/UL [facility] RBC 4.36 3.80 - 5.10 MIL/UL [facility] Hemoglobin 13.1 11.7 - 15.5 G/DL [facility] HCT (HEMATOCRIT) 38.8 35.0 - 45.0 % [facility] MCV 89.1 80.0 - 100.0 FL [facility] MCH 30.0 27.0 - 33.0 PG [facility] MCHC 33.6 32.0 - 36.0 G/DL [facility] PLATELETS 230 140 - 400 THOUS/UL [facility] RDW 13.9 11.0 - 15.0 % [facility] MPV 9.2 7.5 - 11.5 FL [facility] 04/14/2010 04/14/2010 11: 05 PM EST us Xiao Rivers NP LAB SAME DAY RESULT Final Re sult Performing Organization Address [facility] Co de Phone Number [facility] [address] [place] [address] * (ABNORMAL) BASIC METABOLIC PANEL W/GLOMERULAR FILTRATION RATE (EGFR) (04/14/2010) CALCIUM 8.9 8.6 - 10.2 MG/DL [facility] BUN 10 7 - 25 MG/DL [facility] CREATININE 0.78 0.59 - 1.07 MG/DL [facility] Glucose 116(H) 65 - 99 MG/DL [facility] SODIUM 141 135 - 146 MMOL/L [facility] POTASSIUM 3.6 3.5 - 5.3 MMOL/L [facility] CHLORIDE 105 98 - 110 MMOL/L [facility] CARBON DIOXIDE 26 21 - 33 MMOL/L [facility] GFR > 60 60 AND ABOVE [facility] Comment:UNITS: ML/MIN/1.73 S Q METERS EGFR > 60 60 AND ABOVE [facility] Comment:UNITS: ML/MIN/1.73 S Q METERS 04/14/2010 04/14/2010 11: 05 PM EST Narrative [facility] - 04/15/2010 7:22 AM EST Please note that this estimated [...] with more precise needs for GFR calculation. us Xiao Rivers NP LABORATORY Final Result Performing Organization Address [facility] Co de Phone Number [facility] [address] [place] [address] documented in this encounter Visit Diagnoses Diagnosis Asymptomatic varicose veins documented in this encounter Additional Health Concerns Infection Onset Date Last Indicated Resolved Time COVID-19 Rule-Out 01/05/2021 01/05/2021 01/06/2021 11:16 AM EDT documented as of this encounter Care Teams Tractor Engine Mechanic Relationship Specialty Start Date End Date Baldo Parmar MD PCP - General 05/11/12 12/11/17 Ami Osullivan, TERRY-C PCP - Backup PCP Internal Medicine 06/16/15 11/24/17 Elizabet Hair MD PCP - General Family Medicine 12/12/17 02/14/18 Elizabet Hair MD PCP - General 02/15/18 08/15/18 Marybeth Chacon MD PCP - General Internal Medicine 08/16/18 09/02/19 Alfreda Costa DO [address] [place] [address] PCP - General Internal Medicine 09/03/19 Leela Nieto NP [address] [place] [address] PCP - Backup PCP Internal Medicine 09/03/19 11/17/22 documented as of this encounter
--- OUTSIDE RECORDS SUMMARY | 2024-06-25 19:22 | XMS_ITS | Encounter Summary ---
Demographics Address [address] [place] [address] Mobile Phone Home Phone Email Address Preferred Language Dominican Marital Status Jewish Affiliation Unknown Race White Ethnic Group Unknown Author Organization [facility] Address [address] [place] [address] Support Name Relationship Address Phone [place] [facility] Emergency Contact 2 04[address] [place] [address] Shana Danielle Emergency Contact [address] [facility] [place] [address] Care Team Providers Care Assistant Clinical Director Name Role Phone Baldo Parmar MD Primary Care Provider Unavaila Ami Ansari-Megan Unavailable Unavailab Elizabet Hawthorne MD Primary Care Provider [phone] Elizabet Hair MD Primary Care Provider [phone] Marybeth Chacon MD Primary Care Provider [phone] Alfreda Costa DO Primary Care Provider [phone] Leela Nieto HOSPICE FELLOW Unavailable Unavailable Encounter Details Date Type Department Care Team (Late st Contact Info) Description 02/25/2015 Orders Only [facility] [address] [place] [phone] Baldo Parmar MD Social History Tobacco Use [...] Progress Notes * Roxana Fowler [place] - 02/27/2015 9:27 AM ESTQuick Note: Letter sent * Radha Thomas - 02/27/2015 9:20 AM ESTQuick Note: To KAILASH letter Notes Recorded by Baldo Parmar MD on 02/26/2015 at 4:10 PM The results of this test are normal/ stable and/or acceptable notify patient - there is no need to make any changes in approach - as always if the patient has any questions/problems please let me know - * Baldo Parmar - 02/26/2015 4:10 PM ESTQuick Note: The results of this test are normal/ stable and/or acceptable notify patient - there is no need to make any changes in approach - as always if the patient has any questions/problems please let me know - documented in this encounter Plan of Treatment Upcoming Encounters Date Type Department Care Team (Late st Contact Info) Description 06/27/2024 11:00 AM EST Office Visit [facility] [address] [place] [address] Deanne Ibarra PA [address] [place] [address] [facility] 08/16/2024 10:25 AM EDT CPE - Comprehensive Physical Exam [facility] [address] [place] [address] Alfreda Costa DO [address] [place] [address] Physical - [facility] S[facility] TO [facility] 02/27/2025 1:15 PM EST Radiology [address] [facility] [address] [place] [phone] documented as of this encounter Procedures * Due to [place] state law, this organization might not be sharing negative HIV tests. Procedure Name Priority Date/Time Associated Diagnosis Comments CBC INCLUDES DIFFERENTIAL AND PLATELET COUNT Routine 02/25/2015 1:23 PM EST Tired TSH, 3RD GENERATION Routine 02/25/2015 1 :23 PM EST Tired Family history of hypothyroidism IRON PROFILE (IRON/TIBC), SERUM Routine 02/25/2015 1:23 PM EST Tired HEMOGLOBIN A1C Routine 02/25/2015 1:23 PM EST Tired Family history of diabetes mellitus FERRITIN Routine 02/25/2015 1:23 PM EST Tired BASIC METABOLIC PANEL WITH (GFR) Routine 02/25/2015 1:23 PM EST Tired Family history of diabetes mellitus documented in this encounter Results * Due to [place] law, this organization might not be sharing negative HIV tests. * TSH, 3RD GENERATION (02/25/2015 1:23 PM EST) TSH 1.08 mIU/L [facility] Comment: {TSH {[id number]) ?Reference Range ?> or = 20 Years ??0.40-4.50 ? Ranges ?First trimester ?0.26-2.66 ?Second trimester ?? 0.55-2.73 ?Third trimester ?0.43-2.91 02/25/2015 1:23 PM EST 02/25/2015 7:21 PM EST Narrative Resulting Agency Comment [id number] us Baldo Parmar MD LABORATORY Final Result Performing Organization Address City/State/[facility] Co de Phone Number [facility] [address] [place] [address] * (ABNORMAL) HEMOGLOBIN A1C (02/25/2015 1:23 PM EST) Hemoglobin A1C 5.8(H) <5.7 % of total Hgb [facility] Comment: {HEMOGLOBIN A1c {[id number]) According to ADA guidelines, hemoglobin A1c <7.0% [...] of diabetes for children. Estimated Average Glucose 129 mg/dL (calc) [facility] Comment:{MEAN PLASMA GLUCOSE {[id number]) 02/25/2015 1:23 PM EST 02/25/2015 7:21 PM EST Narrative Resulting Agency Comment [id number] us Baldo Parmar MD LABORATORY Final Result [facility] [address] [place] [address] * BASIC METABOLIC PANEL WITH (GFR) (02/25/2015 1:23 PM EST) Glucose 90 65 - 99 mg/dL [facility] Comment: {GLUCOSE {[id number]) ? Fasting reference interval Urea Nitrogen Blood (BUN) 15 7 - 25 mg/dL [facility] Comment:{UREA NITROGEN (BUN) {[id number]) Creatinine 0.80 0.50 - 1.05 mg/dL [facility] Comment: {CREATININE {[id number]) For patients >49 years of age, the reference limit for Creatinine is approximately 13% higher for people identified as -Austrian. GFR 85 > OR = 60 mL/min/1 .73m2 [facility] Comment:{eGFR NON-AFR. AMERI CAN {[id number]) GFR () 98 > OR = 60 mL/min/1 .73m2 [facility] Comment:{eGFR AMERIC AN {[id number]) BUN/Creatinine Ratio NOT APPLICABLE 6 (calc) [facility] Comment:{BUN/CREATININE RATI O {[id number]) Sodium 140 135 - 146 mmol/L [facility] Comment:{SODIUM {[id number]) Potassium 4.4 3.5 - 5.3 mmol/L [facility] Comment:{POTASSIUM {[id number]) Chloride 106 98 - 110 mmol/L [facility] Comment:{CHLORIDE {[id number]) Carbon dioxide 26 19 - 30 mmol/L [facility] Comment:{CARBON DIOXIDE {[id number]) Calcium 8.7 8.6 - 10.4 mg/dL [facility] Comment:{CALCIUM {[id number]) 02/25/2015 1:23 PM EST 02/25/2015 7:21 PM EST Narrative [facility] - 02/25/2015 10:48 PM EST Please note that this estimated [...] needs for GFR calculation. Resulting Agency Comment [id number] Baldo Parmar MD LABORATORY Final Result [facility] [address] [place] [address] * FERRITIN (02/25/2015 1:23 PM EST) Ferritin 107 10 - 232 ng/mL [facility] Comment:{FERRITIN {[id number]) 02/25/2015 1:23 PM EST 02/25/2015 7:21 PM EST Narrative Resulting Agency Comment [id number] Baldo Parmar MD LABORATORY Final Result [facility] [address] [place] [address] * IRON PROFILE (IRON/TIBC), SERUM (02/25/2015 1:23 PM EST) Iron 74 45 - 160 mcg/dL [facility] Comment:{IRON, TOTAL {[id number]) Iron binding capacity 406 250 - 450 mcg/dL [facility] Comment:{IRON BINDING CAPACI TY {[id number]) Iron saturation 18 11 - 50 % (calc) [facility] Comment:{% SATURATION {[id number]) 02/25/2015 1:23 PM EST 02/25/2015 7:21 PM EST Narrative Resulting Agency Comment [id number] Baldo Parmar MD LABORATORY Final Result Performing Organization Address [facility] Co de Phone Number [facility] [address] [place] [address] * CBC INCLUDES DIFFERENTIAL AND PLATELET COUNT (02/25/2015 1:23 PM EST) Pathologist [facility] WBC 7.0 3.8 - 10.8 Thousand/u L [facility] Comment:{WHITE BLOOD CELL CO UNT {[id number]) RBC 4.48 3.80 - 5.10 Million/uL [facility] Comment:{RED BLOOD CELL COUN T {[id number]) Hemoglobin 12.5 11.7 - 15.5 g/dL [facility] Comment:{HEMOGLOBIN {[id number]) Hematocrit 38.0 35.0 - 45.0 % [facility] Comment:{HEMATOCRIT {[id number]) MCV 85.0 80.0 - 100.0 fL [facility] Comment:{MCV {[id number]) MCH 28.0 27.0 - 33.0 pg [facility] Comment:{MCH {[id number]) MCHC 32.9 32.0 - 36.0 g/dL [facility] Comment:{MCHC {[id number]) RDW 13.8 11.0 - 15.0 % [facility] Comment:{RDW {[id number]) PLT 232 140 - 400 Thousand/u L [facility] Comment:{PLATELET COUNT {[id number]) MPV 8.7 7.5 - 11.5 fL [facility] Comment:{MPV {[id number]) Neutrophils # 3402 1500 - 7800 cells/uL [facility] Comment:{ABSOLUTE NEUTROPHIL S {[id number]) Lymphocytes # 2716 850 - 3900 cells/uL [facility] Comment:{ABSOLUTE LYMPHOCYTE S {[id number]) Monocytes # 623 200 - 950 cells/uL [facility] Comment:{ABSOLUTE MONOCYTES {[id number]) Eosinophils # 231 15 - 500 cells/uL [facility] Comment:{ABSOLUTE EOSINOPHIL S {[id number]) Basophils # 28 0 - 200 cells/uL [facility] Comment:{ABSOLUTE BASOPHILS {[id number]) Neutrophils % 48.6 % [facility] Comment:{NEUTROPHILS {[id number]) Lymphocytes % 38.8 % [facility] Comment:{LYMPHOCYTES {[id number]) Monocytes % 8.9 % [facility] Comment:{MONOCYTES {[id number]) Eosinophils % 3.3 % [facility] Comment:{EOSINOPHILS {[id number]) Basophils % 0.4 % [facility] Comment:{BASOPHILS {[id number]) 02/25/2015 1:23 PM EST 02/25/2015 7:21 PM EST Narrative Resulting Agency Comment [id number] Baldo Parmar MD LAB SAME DAY RESULT Final Resul t [facility] [address] [place] [address] documented in this encounter Visit Diagnoses Diagnosis Tired Other malaise and fatigue Family history of diabetes mellitus Family history of hypothyroidism Family history of other endocrine and metabolic diseases documented in this encounter Additional Health Concerns Infection Onset Date Last Indicated Resolved Time COVID-19 Rule-Out 01/05/2021 01/05/2021 01/06/2021 11:16 AM EDT documented as of this encounter Care Teams Assistant Clinical Director Relationship Specialty Start Date End Date Baldo Parmar MD PCP - General 05/11/12 12/11/17 Ami Osullivan, LAURITAC PCP - Backup PCP Internal Medicine 06/16/15 11/24/17 Elizabet Hair MD PCP - General Family Medicine 12/12/17 02/14/18 Elizabet Hair MD PCP - General 02/15/18 08/15/18 Marybeth Chacon MD PCP - General Internal Medicine 08/16/18 09/02/19 Alfreda Costa DO 4 [facility] [address] PCP - General Internal Medicine 09/03/19 Leela Nieto NP 4 [facility] [place] [address] PCP - Backup PCP Internal Medicine 09/03/19 11/17/22 documented as of this encounter
--- OUTSIDE RECORDS SUMMARY | 2024-06-25 19:22 | XMS_ITS | Encounter Summary ---
Demographics Address [address] [place] [address] Mobile Phone Home Phone Email Address Preferred Language Thai Marital Status Druze Affiliation Unknown Race White Ethnic Group Unknown Author Organization [facility] Address [address] [place] [address] Support Name Relationship Address Phone [place] Haas Emergency Contact 2 04/[address] [place] [address] Shana Danielle Emergency Contact [address] [place] [address] Care Team Providers Care Medical Parasitologist Name Role Phone Baldo Parmar MD Primary Care Provider Unavaila Ami Ansari-Megan Unavailable Unavailab Elizabet Hawthorne MD Primary Care Provider [phone] Elizabet Hair MD Primary Care Provider [phone] Marybeth Chacon MD Primary Care Provider [phone] Alfreda Costa DO Primary Care Provider [phone] Leela Nieto WIPER BLENDER Unavailable Unavailable Encounter Details Date Type Department Care Team ([facility] Contact Info) Description 08/05/2015 Orders Only [facility] Orthopedic Surgery [address] [place] [address] [address] [place] [address] Ramakrishna Avendano MD Social History Tobacco Use Types Packs/Day [...] Description 06/27/2024 11:00 AM EST Office Visit [facility] [address] [place] [phone] Deanne Ibarra PA [address] [place] [address] HFU 08/16/2024 10:25 AM EDT CPE - Comprehensive Physical Exam [facility] [address] [place] [phone] Alfreda Costa DO [address] [place] [address] Physical - [facility] SENT TO [facility] 02/27/2025 1:15 PM EST Radiology [address] [facility] [address] [place] [address] documented as of this encounter Visit Diagnoses Diagnosis Adhesive capsulitis of left shoulder- Primary Adhesive capsulitis of shoulder documented in this encounter Additional Health Concerns Infection Onset Date Last Indicated Resolved Time COVID-19 Rule-Out 01/05/2021 01/05/2021 01/06/2021 11:16 AM EDT documented as of this encounter Care Teams Medical Parasitologist Relationship Specialty Start Date End Date Baldo Parmar MD PCP - General 05/11/12 12/11/17 Ami Osullivan, TERRY-C PCP - Backup PCP Internal Medicine 06/16/15 11/24/17 Elizabet Hair MD PCP - General Family Medicine 12/12/17 02/14/18 Elizabet Hair MD PCP - General 02/15/18 08/15/18 Marybeth Chacon MD PCP - General Internal Medicine 08/16/18 09/02/19 Alfreda Costa DO [address] [place] [address] PCP - General Internal Medicine 09/03/19 Leela Nieto NP [address] [place] [address] PCP - Backup PCP Internal Medicine 09/03/19 11/17/22 documented as of this encounter
--- OUTSIDE RECORDS SUMMARY | 2024-06-25 19:22 | XMS_ITS | Encounter Summary ---
Demographics Address [address] [place] [address] Home Phone Mobile Phone Email Address Preferred Language Liberian Marital Status /Civil Union Sabianist Affiliation Unknown Race White Ethnic Group Not or Lati no Author Organization [facility] Address [phone] [facility] [employer] [place] [address] Care Team Providers Care Oim Architect Name Role Phone Alfreda Costa DO Primary Care Provider [phone] Encounter Details Date Type Department Care Team (Late st Contact Info) Description 11/26/2022 Procedure Pass [facility] [address] [place] [address] Social History Tobacco Use Types Packs/Day Years [...] documented as of this encounter Care Teams Oim Architect Relationship Specialty Start Date End Date Alfreda Costa DO [address] [place] [address] [email or web address] PCP - General Internal Medicine 10/12/22 documented as of this encounter Additional Source Comments The information contained in this document represents components of the legal health record. It is not the complete legal health record.[facility]
--- OUTSIDE RECORDS SUMMARY | 2024-06-25 19:22 | XMS_ITS | Encounter Summary ---
Demographics Address [address] [place] [address] Mobile Phone Home Phone Email Address [email or web address] Preferred Language Andorran Marital Status Zoroastrian Affiliation Unknown Race White Ethnic Group Unknown Author Organization [facility] Address [address] [place] [address] Support Name Relationship Address Phone [place] Emergency Contact 2 [address] [place] [address] Shana Danielle Emergency Contact [address] [facility] [place] [address] Care Team Providers Care Hospital Wellness Coordinator Name Role Phone Marybeth Chacon MD Primary Care Provider Alfreda Costa DO Primary Care Provider [phone] Leela iNeto OTHER SPORTS OFFICIAL Unavailable Unavailable Encounter Details Date Type Department Care Team (Late Contact Info) Description 01/18/2019 Orders Only [facility] [address] [place] [address] Monique Beebe PA [facility] [address] [facility] [place] [address] Social History Tobacco Use Types Packs/Day Years [...] 11:00 AM EST Office Visit [facility] [address] [place] [phone] Deanne Ibarra PA [address] [place] [address] HFU 08/16/2024 10:25 AM EDT CPE - Comprehensive Physical Exam [facility] [address] [place] [phone] Alfreda Costa DO [address] [place] [address] Physical - [facility] 02/27/2025 1:15 PM EST Radiology [facility]. [facility] [address] [place] [phone] documented as of this encounter Procedures * Due to [place] [employer] law, this organization might not be sharing negative HIV tests. Procedure Name Priority Date/Time Associated Diagnosis Comments VENIPUNCTURE Routine 01/18/2019 12:25 PM EDT Hair loss FERRITIN Routine 01/18/2019 12:25 PM EDT Hair loss VITAMIN D, 25-HYDROXY, TOTAL, IMMUNOASSAY Routine 01/18/2019 12:25 PM EDT Hair loss documented in this encounter Results * Due to [place] [employer] law, this organization might not be sharing negative HIV tests. * (ABNORMAL) VITAMIN D, 25-HYDROXY, TOTAL, IMMUNOASSAY (01/18/2019 12:25 PM EDT) Vitamin D, 25-OH, Total 19(L) 30 - 100 ng/mL [employer] Comment: Vitamin D Status ? 25-OH Vitamin D: Deficiency: ?<20 ng/mL Insufficiency: ? 20 - 29 ng/mL Optimal: ? > or = 30 ng/mL For 25-OH Vitamin D testing on patients on D2-supplementation and patients for whom quantitation of D2 and D3 fractions is required, the QuestAssureD(TM) 25-OH VIT D, (D2,D3), LC/MS/MS is recommended: order code 22115 (patients >2yrs). For more information on this test, go to: http://education.MediSens/faq/BHX009 (This link is being provided for informational/educational purposes only.) 01/18/2019 12:2 5 PM EDT 01/18/2019 3:18 PM EDT Narrative Resulting Agency Comment [id number] Monique Novindatony [facility] LABORAT[facility] Final Result Performing Organization Address City/[facility]/ZIP Co de Phone Number [facility] [address] [place] [address] * FERRITIN (01/18/2019 12:25 PM EDT) Pathologist [facility] Ferritin 30 16 - 232 ng/mL [facility] 01/18/2019 12:2 5 PM EDT 01/18/2019 3:18 PM EDT Narrative Resulting Agency Comment [id number] [facility] Final Result Performing Organization Address [facility]/ZIP Co de Phone Number [facility] [address] [place] [address] * AMADOU SCREEN IFA W/REFLEX TO TITER/PATTERN IFA (01/18/2019 12:25 PM EDT) AMADOU IFA NEGATIVE NEGATIVE [facility] Comment: AMADOU IFA is a first line [...] AC-0: Negative International Consensus on AMADOU Patterns (https://doi.org/10.1515/kstj-8245-0672) For additional information, please refer to http://education.Red Blue Voice.AppHarbor/faq/WDJ404 (This link is being provided for informational/ educational purposes only.) 01/18/2019 12:2 5 PM EDT 01/18/2019 3:18 PM EDT Narrative Resulting Agency Comment [id number] Monique [facility] Final Result [facility] [address] [place] [address] documented in this encounter Visit Diagnoses Diagnosis Hair loss Alopecia, unspecified documented in this encounter Additional Health Concerns Infection Onset Date Last Indicated Resolved Time COVID-19 Rule-Out 01/05/2021 01/05/2021 01/06/2021 11:16 AM EDT documented as of this encounter Care Teams Hospital Wellness Coordinator Relationship Specialty Start Date End Date Marybeth Chacon MD PCP - General Internal Medicine 08/16/18 09/02/19 Alfreda Costa DO [address] [place] [address] PCP - General Internal Medicine 09/03/19 Leela Nieto NP [address] [place] [address] PCP - Backup PCP Internal Medicine 09/03/19 11/17/22 documented as of this encounter
--- OUTSIDE RECORDS SUMMARY | 2024-06-25 19:22 | XMS_ITS | Encounter Summary ---
Demographics Address [address] [place] [address] Mobile Phone Home Phone Email Address Preferred Language Cymraes Marital Status Nondenominational Affiliation Unknown Race White Ethnic Group Unknown Author Organization [facility] Address [address] [place] [address] Support Name Relationship Address Phone [place] Emergency Contact 2 [address] [place] [address] Shana Danielle Emergency Contact [address] [place] [address] Care Team Providers Care Tour Production Supervisor Name Role Phone Alfreda Costa DO Primary Care Provider [phone] Leela Nieto COASTAL AND ESTUARY SPECIALIST Unavailable Unavailable Reason for Visit * Reason Comments Denial Error Encounter Details Date Type Department Care Team (Late Contact Info) Description 08/04/2021 Telephone [facility]. [facility] [address] [place] [address] Alfreda Costa DO [address] [place] [address] Denial; Error Social History Tobacco Use Types Packs/Day Years [...] 06/27/2024 11:00 AM EST Office Visit [facility] [address] [place] [address] Deanne Ibarra PA [address] [place] [address] RUST 08/16/2024 10:25 AM EDT CPE - Comprehensive Physical Exam [facility] [address] [place] [address] Alfreda Costa DO [address] [place] [address] Physical - LETTER SENT TO [facility] 02/27/2025 1:15 PM EST Radiology [facility]. [address] [address] documented as of this encounter Visit Diagnoses Not on filedocumented in this encounter Care Teams Tour Production Supervisor Relationship Specialty Start Date End Date Alfreda Costa DO [address] [place] [address] PCP - General Internal Medicine 09/03/19 Leela Nieto NP [address] [place] [address] PCP - Backup PCP Internal Medicine 09/03/19 11/17/22 documented as of this encounter
--- OUTSIDE RECORDS SUMMARY | 2024-06-25 19:22 | XMS_ITS | Encounter Summary ---
Demographics Address [address] [place] [address] Mobile Phone Home Phone Email Address Preferred Language Mauritanian Marital Status Voodoo Affiliation Unknown Race White Ethnic Group Unknown Author Organization [facility] Address [address] [place] [address] Support Name Relationship Address Phone [place] Emergency Contact [address] [place] [address] Shana Danielle Emergency Contact [address] [place] [address] Care Team Providers Care Stoker Erector Name Role Phone CostaAlfreda Primary Care Provider [phone] Reason for Visit * Reason Comments Rehab Plan Of Care Order Encounter Details Date Type Department Care Team (Late st Contact Info) Description 02/06/2024 Orders Only [facility] [address] [place] [phone] Jackelyn Loco, PT [address] [place] [address] Social History Tobacco Use Types Packs/Day Years [...] Description 06/27/2024 11:00 AM EST Office Visit [facility] [address] [place] [address] Deanne Ibarra PA [address] [place] [address] HFU 08/16/2024 10:25 AM EDT CPE - Comprehensive Physical Exam [facility] [address] [place] [phone] Alfreda Costa DO [address] [place] [address] Physical - [facility] SENT TO [facility] 02/27/2025 1:15 PM EST Radiology [facility] [address] [place] [address] documented as of this encounter Visit Diagnoses Diagnosis Unsteady gait-PT Abnormality of gait documented in this encounter Care Teams Stoker Erector Relationship Specialty Start Date End Date Alfreda Costa DO [address] [place] [address] PCP - General Internal Medicine 09/03/19 documented as of this encounter
--- OUTSIDE RECORDS SUMMARY | 2024-06-25 19:22 | XMS_ITS | Encounter Summary ---
Demographics Address [address] [place] [address] Mobile Phone Home Phone Email Address Preferred Language Grenadian Marital Status Jew Affiliation Unknown Race White Ethnic Group Unknown Author Organization [facility] Address [address] [place] [address] Support Name Relationship Address Phone [place] Emergency Contact [address] [place] [address] Shana Danielle Emergency Contact [address] [place] [address] Care Team Providers Care Catalyst Impregnator Name Role Phone IgorAlfreda Primary Care Provider Encounter Details Date Type Department Care Team (Late st Contact Info) Description 08/08/2023 Orders Only [facility] [address] [place] [address] Deanne Ibarra PA [address] [place] [address] Social History Tobacco Use Types Packs/Day Years [...] Miscellaneous Notes * Result Encounter Note - Deanne Ibarra PA - 08/08/2023 11:13 AM EDT Mcm documented in this encounter Plan of Treatment Upcoming Encounters Date Type Department Care Team (Late st Contact Info) Description 06/27/2024 11:00 AM EST Office Visit [facility] [address] [place] [address] Deanne Ibarra PA [address] [place] [address] HFU 08/16/2024 10:25 AM EDT CPE - Comprehensive Physical Exam [facility] [address] [place] [address] Alfreda Costa DO [address] [place] [address] Physical - [facility] 02/27/2025 1:15 PM EST Radiology [facility]. Mammography [address] [place] [phone] documented as of this encounter Procedures * Due to [place] [employer] law, this organization might not be sharing negative HIV tests. Procedure Name Priority Date/Time Associated Diagnosis Comments LIPID PANEL WITH REFLEX TO DIRECT LDL Routine 08/08/2023 11:13 AM EDT Hyperlipidemia, unspecified hyperlipidemia type BASIC METABOLIC PANEL WITH (GFR) Routine 08/08/2023 11:13 AM EDT Hyperlipidemia, unspecified hyperlipidemia type documented in this encounter Results * Due to [employer] law, this organization might not be sharing negative HIV tests. * BASIC METABOLIC PANEL WITH (GFR) (08/08/2023 11:13 AM EDT) Glucose 98 65 - 99 mg/dL [facility] Comment:Fasting reference in terval Urea Nitrogen Blood (BUN) 17 7 - 25 mg/dL [facility] Creatinine 0.80 0.50 - 1.05 mg/dL [facility] EGFR 84 > OR = 60 mL/min/1. 73m2 [facility] BUN/Creatinine Ratio SEE NOTE: 6 - 22 (calc) [facility] Comment: ?? Not Reported: BUN and Creatinine are within ?? reference range. Sodium 138 135 - 146 mmol/L [facility] Potassium 4.6 3.5 - 5.3 mmol/L [facility] Chloride 101 98 - 110 mmol/L [facility] Carbon dioxide 28 20 - 32 mmol/L [facility] Calcium 9.5 8.6 - 10.4 mg/dL [facility] 08/08/2023 11:1 3 AM EDT 08/08/2023 7:11 PM EDT Narrative [facility] - 08/08/2023 10:04 PM EDT Please note that this estimated [...] needs for GFR calculation. Resulting Agency Comment [id number] us Deanne [facility] Final Result [facility] [address] [place] [address] * LIPID PANEL WITH REFLEX TO DIRECT [...] equation in the estimation of LDL-C. Quentin MON et al. JAMEE. 2013;310(19): 0820-0882 (http://education.Tookitaki.com/faq/QVO353) CHOL/HDL Ratio 2.2 <5.0 (calc) [facility] Cholesterol Non-HDL 82 <130 mg/dL (calc) [facility] Comment: For patients with diabetes plus 1 major ASCVD risk factor, treating to a non-HDL-C goal of <100 mg/dL (LDL-C of <70 mg/dL) is considered a therapeutic option. 08/08/2023 11:1 3 AM EDT 08/08/2023 7:11 PM EDT Narrative Resulting Agency Comment [id number] us Deanne [facility] Final Result Performing Organization Address City/State/[facility] Co de Phone Number [facility] [address] [place] [address] documented in this encounter Visit Diagnoses Diagnosis Hyperlipidemia, unspecified hyperlipidemia type documented in this encounter Care Teams Catalyst Impregnator Relationship Specialty Start Date End Date Alfreda Costa DO [address] [place] [address] PCP - General Internal Medicine 09/03/19 documented as of this encounter
--- OUTSIDE RECORDS SUMMARY | 2024-06-25 19:22 | XMS_ITS | Clinical Summary ---
Demographics Address 2 [address] [facility] [place] [address] Mobile Phone Home Phone Preferred Language Yi Marital Status Latter Day Affiliation Unknown Race White Ethnic Group Not or Lati no Author Organization [facility] Address [address] [place] [address] Care Team Providers Care Director Of Food And Nutrition Name Role Phone Alfreda Costa Primary Care Provider [phone] Allergies Active Allergy Reactions Criticality Noted Date Comments Ampicillin Rash 07/06/2006 Cephalexin Rash 07/06/2006 Penicillin G Potassium Rash 07/06/2006 Medications lamoTRIgine (LaMICtal) 200 mg tablet Take 200 mg by mouth 2 times a day. 06/13/[address] (CYMBALTA) 60 mg capsule Take 120 mg by mouth daily. 08/01/19 21 Active dextroamphetam ine-amphetamin e (ADDERALL) 30 mg tablet Take 1 tablet by mouth 2 times a day. 07/02/19 21 Active clonazePAM (KlonoPIN) 0.5 mg tablet Take 0.5 mg by mouth 3 times a day. 09/06/19 21 Active atorvastatin (LIPITOR) 40 mg tablet TAKE ONE TABLET (40 MG TOTAL) BY MOUTH 1 (ONE) TIME EACH DAY FOR CHOLESTEROL 07/19/19 21 Active traZODone (DESYREL) 150 mg tablet Take 150 mg by mouth nightly. Active apixaban (ELIQUIS) 2.5 mg tablet Take 5 mg by mouth every 12 hours. Active 0.9% NaCl 0.9% piggyback 100 mL with cefTRIAXone 2 gram recon soln 2 g Infuse 2 g intravenously every 24 hours for 24 days. 06/09/19 25 2024 Active bisacodyL (DULCOLAX) 10 mg suppository Insert 1 suppository (10 mg total) into the rectum daily as needed for constipation. 06/08/19 25 2024 Active docusate sodium (COLACE) 100 mg capsule Take 1 capsule (100 mg total) by mouth 2 times a day. 06/09/19 25 2024 Active polyethylene glycol 3350 (MIRALAX) 17 gram [...] mg by mouth 2 times daily. 03/29/20 24 Active cefadroxil (DURICEF) 1 gram tablet Take [...] Noted Date Diagnosed Date Osteomyelitis of pelvis (CMS/HCC) 06/07/2024 Assessment & Plan (06/08/2024 8:40 AM [...] [facility] Outpatient ID fellow/DEBBIE: Dr Koko ESTRADA [address] [id number] Please follow-up at the ID clinic: Dr. Sutherland 06/20 @ 9:[email or web address] Assessment & Plan (06/07/2024 5:47 PM [...] Continue ceftriaxone and Flagyl Blood cultures from . V growing Streptococcus intermedius. Gait instability 06/01/2024 Assessment [...] negative SM (moreno): <1.0 negative Anti-dsDNA: negative MAINTENANCE ANALYST: negative C3: elevated C4: negative ESR, CRP: [...] moreno (SM), pending - Anti-dsDNA, negative - MAINTENANCE ANALYST, negative - C3, elevated - C4, negative [...] workup including: AMADOU, RF, anti-dsDNA, moreno (SM), MAINTENANCE ANALYST, C3, C4, ESR, CRP, pending - Further [...] workup including: AMADOU, RF, anti-dsDNA, moreno (SM), MAINTENANCE ANALYST, C3, C4, ESR, CRP, pending - Further [...] workup including: AMADOU, RF, anti-dsDNA, moreno (SM), MAINTENANCE ANALYST, C3, C4, ESR, CRP - Further metabolic [...] workup including: AMADOU, RF, anti-dsDNA, moreno (SM), MAINTENANCE ANALYST, C3, C4, ESR, CRP - Further metabolic [...] bubble study Follow the progression of disease Encounters Date Type Department Care Team Description 06/20/2024 9:30 AM EST Follow-Up [facility] [address] [place] [address] Pressroom Foreman: Herman Michael MD Osteomyelitis of pelvis (CMS/HCC) (HCC) (Primary Dx); Streptococcal bacteremia; Pelvic abscess in female; Antibiotic long-term use 06/08/2024 Lab Requisition [facility] [address] [place] [address] Unknown, Doctor 06/01/2024 11:18 AM EST - 06/08/2024 10:47 PM EST Hospital Encounter [facility] PAV [address] [place] [address] Luz Fisher MD Darling, Chad E, MD Javady, Houman J., MD Dang, Evan N, DO Paudel, Prakash, MD Quarles, Ryan H, MD Lee, Nancy, MD Hematuria (Primary Dx) Discharge Disposition: Inpatient Rehab Facility (IRF) (62) from Last 3 Months Family History Medical History Relation Name Comments Graves' disease Brother Prostate cancer Father Uterine cancer Father's Sister Lung cancer Maternal Grandfather Breast cancer Maternal Grandmother Ovarian cancer Maternal Grandmother Hyperlipidemia Mother Liver cancer Paternal Grandfather Bladder Cancer Paternal Grandmother Breast cancer Paternal Grandmother Graves' disease Paternal Grandmother Ovarian cancer Paternal Great-grandmother Relation Name Status Comments Brother Father Father's Sister Alive Maternal Grandfather Maternal Grandmother Mother Paternal Grandfather Paternal Grandmother Paternal Great-grandmother Alive Social History Tobacco Use Types Packs/Day Years [...] Info) Description 07/11/2024 9:00 AM EDT Follow-Up [facility] [address] [place] [id number] Pressroom Foreman: Herman Michael MD [address] [place] [address] [place] [address] Health Maintenance Due Date Last Done Comments Cologuard 1960 FOBT / Fit Test 1960 Hepatitis C Screening 1960 Sigmoidoscopy 1960 Pneumococcal Vaccine: 50+ Years (1 of 1 - PCV) 2012 COVID-19 Vaccine ( season) 2023 08/08/2023, 04/29/2021, 07/26/2020 Alcohol/Substance Use Screening 04/25/2024 Depression Evaluation 04/25/2024 Social Drivers of Health Annual Screening 04/25/2024 Pap Smear 07/15/2025 07/15/2022, 04/27, 05/18/2010, Additional history exists Mammogram 01/10/2026 01/11/2024, 12/24, 12/08/2015, Additional history exists Cervical Cancer Screening 07/16/2027 HPV and Pap Smear 07/16/2027 07/15/2022, , 05/18/2010, Additional history exists Colon Cancer Screening 06/26/2031 Colonoscopy 06/26/2031 06/25/2021 DTaP,Tdap,and Td Vaccines (4 - Td or Tdap) 05/11/2034 05/11/2024, 06/06/2017, 10/21/2006 Zoster Vaccines Completed 08/03/2021, 04/11/2020 Influenza Vaccine Completed 05/11/2024, , 04/29/2021, Additional history exists RSV Vaccine (60+ years old and patients) Completed 05/11/2024 HIV Screening Completed 06/06/2024 Hepatitis B Vaccines Aged Out No long er eligible based on patient's age to complete this topic Procedures * Due to [place] state law, this organization might not be [...] AUTO DIFFERENTIAL Routine 06/08/2024 5:49 AM EST [facility] IV GAS DESULFURIZER PICC Routine 3:55 PM EST C-REACTIVE PROTEIN [...] EST MRI BRAIN W WO CONTRAST STAT 02/12/20 25 7:00 AM EST MRI (MSK) PELVIS W [...] COMPLEMENT C4 Routine 06/04/2024 3:44 AM EST MAINTENANCE ANALYST ANTIBODY Routine 06/04/2024 3:44 AM EST MORENO [...] to Health Maintenance Results * Due to [place] state law, this organization might not be sharing negative HIV tests. * (ABNORMAL) CBC Auto Differential (06/18/2024 5:55 AM EST) Only the most recent of13 resultswithin the time period is included. WBC 7.2 4.8 - 10.8 10*3/uL 06/18/2024 9:46 AM EST [facility] RBC 3.67(L) 4.20 - 5.40 10*6/uL 06/18/2024 9:46 AM EST [facility] Hemoglobin 10.2(L) 11.7 - 15.5 g/dL 06/18/2024 9:46 AM EST [facility] Hematocrit 32.7(L) 35.7 - 45.8 % 06/18/2024 9:46 AM EST [facility] MCV 89.1 81.0 - 99.0 fL 06/18/2024 9:46 AM EST [facility] MCH 27.8 26.0 - 34.0 pg 06/18/2024 9:46 AM [facility] MCHC 31.2 31.0 - 36.0 g/dL 06/18/2024 9:46 AM [facility] RDW 15.2(H) 12.0 - 15.0 % 06/18/2024 9:46 AM [facility] RDW Standard Deviation 48.3(H) 36.4 - 46.3 fL 06/18/2024 9:46 AM [facility] Platelets 439 140 - 440 10*3/uL 06/18/2024 9:46 AM [facility] MPV 8.8(L) 9.4 - 12.3 fL 06/18/2024 9:46 AM [facility] Neutrophil % 42.0(L) 50.0 - 75.0 % 06/18/2024 9:46 AM EST [facility] Immature Grans % 0.8 0.0 - 0.9 % 06/18/2024 9:46 AM [facility] Lymphocyte % 41.4 20.0 - 44.0 % 06/18/2024 9:46 AM [facility] Monocyte % 9.8 0.0 - 14.0 % 06/18/2024 9:46 AM [facility] Eosinophil % 5.2(H) 0.0 - 5.0 % 06/18/2024 9:46 AM [facility] Basophil % 0.8 0.0 - 2.0 % 06/18/2024 9:46 AM [facility] Neutrophil # 3.03 1.80 - 7.70 10*3/uL 06/18/2024 9:46 AM EST [facility] Immature Grans # 0.06(H) 0.00 - 0.03 10*3/uL 06/18/2024 9:46 AM EST [facility] Lymphocyte # 3.00 1.00 - 4.75 10*3/uL 06/18/2024 9:46 AM EST [facility] Monocyte # 0.70(H) 0.00 - 0.60 10*3/uL 06/18/2024 9:46 AM EST [facility] Eosinophil # 0.40 0.00 - 0.80 10*3/uL 06/18/2024 9:46 AM EST [facility] Basophil # 0.10 0.00 - 0.20 10*3/uL 06/18/2024 9:46 AM EST [facility] nRBC % 0.0 0 - 0 /100 WBCs 06/18/2024 9:46 AM EST [facility] nRBC # <0.01 0.00 - 0.13 10*3/uL 06/18/2024 9:46 AM EST [facility] Blood Structure of peripheral vein / Unknown Venipuncture / Unknown 06/18/2024 5:55 AM EST 06/18/2024 7:40 AM EST us Doctor Unknown LAB BLOOD ORDERABLES Final Resul t Performing Organization Address City/State/[facility] Co de Phone Number [facility] [address] [place] [address] [address] [place] [address], * (ABNORMAL) Comprehensive Metabolic Panel (06/18/2024 5:55 AM EST) Only the most recent of4 resultswithin the time period is included. NA 141 136 - 145 mmol/L 06/18/2024 9:57 AM EST [facility] K 4.5 3.5 - 5.1 mmol/L 06/18/2024 9:57 AM [facility] Cl 101 98 - 109 mmol/L 06/18/2024 9:57 AM [facility] CO2 32 22 - 32 mmol/L 06/18/2024 9:57 AM [facility] Anion Gap 13 >=0 06/18/2024 9:57 AM [facility] Glucose 93 60 - 99 mg/dL 06/18/2024 9:57 AM [facility] Creatinine 0.70 0.50 - 1.12 mg/dL 06/18/2024 9:57 AM [facility] Calcium 9.3 8.4 - 10.4 mg/dL 06/18/2024 9:57 AM [facility] Total Protein 6.4(L) 6.6 - 8.7 g/dL 06/18/2024 9:57 AM [facility] Albumin 3.5 3.5 - 5.0 g/dL 06/18/2024 9:57 AM [facility] Bilirubin, Total 0.1(L) 0.2 - 1.2 mg/dL 06/18/2024 9:57 AM [facility] Alkaline Phosphatase 123 40 - 129 U/L 06/18/2024 9:57 AM [facility] AST 41(H) 0 - 33 U/L 06/18/2024 9:57 AM [facility] ALT 30 <=33 U/L 06/18/2024 9:57 AM [facility] BUN 13 8 - 23 mg/dL 06/18/2024 9:57 AM [facility] eGFR >90 >=60 mL/min/1. 73m2 06/18/2024 9:57 AM [facility] Comment:The estimated glomer ular filtration rate [...] - 4.2 g/dL 06/18/2024 9:57 AM EST [facility] A/G Ratio 1.2(L) 1.5 - 3.0 06/18/2024 9:57 AM EST [facility] Blood Structure of peripheral vein / Unknown Venipuncture / Unknown 06/18/2024 5:55 AM EST 06/18/2024 7:40 AM EST [facility] - 06/18/2024 9:57 AM EST NUR3\S\300\S\A\S\0156\S\S\BED\S\0156 Magdalena Johnson WEATHER CLERK LAB BLOOD ORDERABLES Final Result Performing Organization Address City/State/[facility] Co de Phone Number [facility] [address] [place] [address] [address] [place] [address], * (ABNORMAL) Basic Metabolic Panel (06/11/2024 5:00 AM EST) Only the most recent of9 resultswithin the time period is included. NA 136 136 - 145 mmol/L 06/11/2024 9:45 AM EST [facility] K 4.4 3.5 - 5.1 mmol/L 06/11/2024 9:45 AM EST [facility] Cl 97(L) 98 - 109 mmol/L 06/11/2024 9:45 AM EST [facility] CO2 28 22 - 32 mmol/L 06/11/2024 9:45 AM EST [facility] BUN 7(L) 8 - 23 mg/dL 06/11/2024 9:45 AM EST [facility] Creatinine 0.61 0.50 - 1.12 mg/dL 06/11/2024 9:45 AM EST [facility] Glucose 106(H) 60 - 99 mg/dL 06/11/2024 9:45 AM EST [facility] Calcium 8.5 8.4 - 10.4 mg/dL 06/11/2024 9:45 AM EST [facility] Anion Gap 15 >=0 06/11/2024 9:45 AM EST [facility] eGFR >90 >=60 mL/min/1. 73m2 06/11/2024 9:45 AM EST [facility] Comment:The estimated glomer ular filtration [...] AM EST 06/11/2024 7:03 AM EST Narrative [facility] - 06/11/2024 9:45 AM EST NUR3\S\300\S\A\S\0156\S\S\BED\S\0156 us Doctor Unknown LAB BLOOD ORDERABLES Final Resul t [facility] [address] [place] [address], * (ABNORMAL) Hepatic Function Panel (06/09/2024 11:18 AM EST) Only the most recent of2 resultswithin the time period is included. Total Protein 7.0 6.6 - 8.7 g/dL 06/09/2024 12:57 PM EST [facility] Albumin 3.3(L) 3.5 - 5.0 g/dL 06/09/2024 12:57 PM EST [facility] Globulin, Total 3.7 2.1 - 4.2 g/dL 06/09/2024 12:57 PM EST [facility] Bilirubin, Total 0.2 0.2 - 1.2 mg/dL 06/09/2024 12:57 PM EST [facility] Bilirubin, Direct 0.1 <=0.3 mg/dL 06/09/2024 12:57 PM EST [facility] Alkaline Phosphatase 127 40 - 129 U/L 06/09/2024 12:57 PM EST [facility] AST 20 0 - 33 U/L 06/09/2024 12:57 PM EST [facility] ALT 9 <=33 U/L 06/09/2024 12:57 PM EST [facility] Bilirubin, Indirect 0.10 <=0.70 mg/dL 06/09/2024 12:57 PM EST [facility] A/G Ratio 0.9(L) 1.5 - 3.0 06/09/2024 12:57 PM EST [facility] Blood Structure of peripheral vein / Unknown 06/09/2024 11:18 AM EST 06/09/2024 12:26 PM EST [facility] - 06/09/2024 12:57 PM EST NUR3\S\300\S\A\S\0156\S\S\BED\S\0156 us Aure Richter MD LAB BLOOD ORDERABLES Sherly l Result [facility] [address] [facility] [address] [place] [address], * (ABNORMAL) Prealbumin (06/09/2024 11:17 AM EST) Prealbumin 16(L) 20 - 40 mg/dL 06/09/2024 1:16 PM EST [facility] Blood Structure of peripheral vein / Unknown Venipuncture / Unknown 06/09/2024 11:17 AM EST 06/09/2024 11:17 AM EST Narrative [facility] - 06/09/2024 1:16 PM EST NUR3\S\300\S\B\S\0156\S\S\BED\S\0156 us Doctor Unknown LAB BLOOD ORDERABLES Final Resul t Performing Organization Address [facility] Co de Phone Number [facility] [address] [place] [address], * (ABNORMAL) Albumin (06/09/2024 11:16 AM EST) Albumin 3.3(L) 3.5 - 5.0 g/dL 06/09/2024 12:55 PM EST [facility] Blood Structure of peripheral vein / Unknown Venipuncture / Unknown 06/09/2024 11:16 AM EST 06/09/2024 11:16 AM EST Narrative [facility] - 06/09/2024 12:55 PM EST NUR3\S\300\S\B\S\0156\S\S\BED\S\0156 NUR3\S\300\S\B\S\0156\S\S\BED\S\0156 us Doctor Unknown LAB BLOOD ORDERABLES Final Resul t Performing Organization Address City/[facility]/ZIP Co de Phone Number [facility] [address] [place] [address], * Magnesium (06/08/2024 5:49 AM EST) Only the most recent of6 resultswithin the time period is included. MG 1.9 1.6 - 2.4 mg/dL 06/08/2024 6:27 AM EST [facility] Blood Structure of peripheral vein / Unknown Venipuncture / Unknown 06/08/2024 5:49 AM EST 06/08/2024 5:58 AM EST us Eliazar Morgan MD LAB BLOOD ORDERABLES Final Res ult [facility] [address] [place] [address], [place] * PEDIATRIC CNS PICC and Midline (06/07/2024 3:55 PM EST) Narrative Eliazar Hammond RN - 06/07/2024 3:55 PM EST Eliazar Hammond RN ? 06/07/2024 ??3:56 PM PICC line insertion Date/Time: 06/07/2024 3:55 PM Performed by: Eliazar Hammond RN Provider type: External RN Vendor ??Reason for Insertion: intravenous antibiotics ?Successful placement: yes ?? [place] Protocol ??Patient identity confirmed: ??Name and MRN [...] lumen ??Catheter Size (fr): ??4 ??Lot #: ??[id number] ??Catheter Total Length (cm): ??38 ??Catheter External Length (cm): ??0 Post-Procedure Central Line Bundle ??Guidewire Removal Confirmed?: Yes ?All Ports Capped?: Yes ?Verification of Line Placement: ??ECG guidance system ??Dressing Applied: Antimicrobial Post-Procedure Details ??Patient tolerance of procedure: ??Tolerated well, no immediate complications ??Significant events: ??None ??Plan: ??PICC line ready for immediate use ??Handoff Report Given to: ??Zoe Pires RN Eliazar Morgan MD IV THERAPY ORDERABLES Final Re sult * (ABNORMAL) Sedimentation Rate (06/07/2024 3:14 PM EST) Only the most recent of2 resultswithin the time period is included. Sed Rate 60(H) <30 mm/Hr mm/Hr 06/07/2024 3:32 PM EST [facility] Blood Structure of peripheral vein / Unknown Venipuncture / Unknown 06/07/2024 3:14 PM EST 06/07/2024 3:23 PM EST Eliazar Morgan MD LAB BLOOD ORDERABLES Final Res ult Performing Organization Address [facility] de Phone Number [facility] [address] [place] [id number], * (ABNORMAL) C-reactive protein (06/07/2024 3:14 PM EST) Only the most recent of2 resultswithin the time period is included. C Reactive Protein 29.3(H) <=9.9 mg/L 06/07/2024 3:59 PM EST [facility] Blood Structure of peripheral vein / Unknown Venipuncture / Unknown 06/07/2024 3:14 PM EST 06/07/2024 3:23 PM EST Eliazar Morgan MD LAB BLOOD ORDERABLES Final Res ult Performing Organization Address [facility] Co de Phone Number [facility] [address] [place] [address], [place] * X-Ray Pelvis 3+ Views (06/07/2024 [...] obtain the completed interpretation. ? Workstation ID: [id number] Narrative 06/07/2024 5:18 PM EST COMPARISON: MRI of the pelvis from 06/06/2024. Resulting Agency Comment [id number] Procedure Note Eliazar Nieves MD - 06/07/2024 [...] possible to obtain thecompleted interpretation. Workstation ID: [id number] us Eliazar Morgan MD IMG XR PROCEDURES [...] obtain the completed interpretation. ? Workstation ID: [id number] Narrative 06/06/2024 9:51 AM EST EXAMINATION: MRI [...] procedure. ??Correlate with history. Resulting Agency Comment [id number] Procedure Note Jose A Padilla MD - 02/12/2025 EXAMINATION: MRI brain without and with contrast [...] possible to obtain thecompleted interpretation. Workstation ID: [id number] us Chelsea Salinas MD IMG MRI PROCEDURES [...] within the left adductor brevis muscle. A(n) Manquin actionable finding has been communicated to the ordering or responsible provider via the [facility] system on 06/06/2024 9:29 AM. ??Receipt of this communication by the responsible provider will be documented in [employer] upon receiving acknowledgement if applicable, Message ID [id number]. Eliazar Rizzo, have reviewed the examination and concur with the findings as reported or so edited. Trainee: ??Rosa Maria Morales If this radiology report contains a blank impression section, it is an incomplete radiology report. ??Please contact the interpreting radiologist or applicable radiology division as soon as possible to obtain the completed interpretation. ? Workstation ID: [id number] Narrative 06/06/2024 9:29 AM EST INDICATION: ??To [...] neurovascular structures appears unremarkable. Resulting Agency Comment [id number] Procedure Note Eliazar Nieves MD - 06/06/2024 [...] largest within the leftadductor brevis muscle. A(n) Manquin actionable finding has been communicated to the ordering orresponsible provider via the [employer] system on06/06/2024 9:29 AM. Receipt of this communication by the responsibleprovider will be documented in [employer] uponreceiving acknowledgement if applicable, Message ID [id number]. I, Eliazar Nieves, have reviewed the examination and concur with the findings asreported or so edited. Trainee: Rosa Maria Morales If this radiology report contains a blank impression section, it is anincomplete radiology report. Please contact the interpreting radiologistor applicable radiology division as soon as possible to obtain thecompleted interpretation. Workstation ID: [id number] Chelsea Salinas MD [facility] [place] PROCEDURES Final Result * CT Chest [...] the ordering or responsible provider via the [employer] system on 06/05/2024 1:18 PM. ??Receipt of this communication by the responsible provider will be documented in [employer] upon receiving acknowledgement if applicable, Message ID [id number]. If this radiology report contains a blank impression section, it is an incomplete radiology report. ??Please contact the interpreting radiologist or applicable radiology division as soon as possible to obtain the completed interpretation. ? Workstation ID: [id number] Up-to-date CT equipment and radiation dose reduction [...] change in the spine. Resulting Agency Comment [id number] us Eliazar Morgan MD IMG CT PROCEDURES Edited Resul t - Final * (ABNORMAL) POCT Glucose, interfaced (06/05/2024 11:20 AM EST) Only the most recent of2 resultswithin the time period is included. [facility] Signature Glucose, POCT 130(H) 70 - 99 mg/dL 06/05/2024 11:32 AM EST [facility] Comment: The foot worker has not determined the efficacy of this test in Critically ill patients. ??[facility] defines Critically ill patients for the [...] POCT ORDERABLES - DEVICE F inal Result [facility], POC [address] [place] [address], * TRANSTHORACIC ECHO (TTE) COMPLETE W/ BUBBLE [...] 2D 70 % Global longitudinal strain -18.2 [facility] RV TISSUE DOPPLER S' 15.4 cm/s [...] Doppler. Myocardial deformation imaging was performed using [employer]. During the study the apical, parasternal, subcostal and suprasternal view was captured. Overall the study quality was adequate. Prior Study No prior study available for comparison. STRESS ECHO OVERALL FINDINGS No significant valvular disease identified. Bin Fairchild MD CV ECHO PROCEDURES Final Resul t * Red Top (06/05/2024 4:52 AM EST) Extra Tube Hold for add-ons. 06/05/2024 9:06 AM EST [facility] Comment:Auto resulted. Blood Structure of peripheral vein / Unknown 06/05/2024 4:52 AM EST 06/05/2024 4:52 AM EST Eliazar Morgan MD LAB BLOOD ORDERABLES Final Res ult [facility] [address] [place] [address], * MPN Core Diagnostic Panel (JAK2, CALR, MPL) (06/05/2024 3:49 AM EST) Specimens Specimen Number: [id number] Specimen Type: Blood Specimen Source: Venous, Peripheral Linked Case: N/A Collection/Procedur e Date: 06/05/2024 Specimen Description: N/A [facility] MANUAL 5 4:46 PM EST [facility] LAB[facility] JAK2 [id number] Mutation Not Detected Not Detected, See Comments [employer] MANUAL 5 4:46 PM EST [facility] CALR EXON 9 Mutation Not Detected Not Detected, See Comments [employer] MANUAL 5 4:46 PM EST [facility] JAK2 EXON 12 Mutation Not Detected Not Detected, See Comments [employer] MANUAL 5 4:46 PM EST [facility] PATH[facility] MPL EXON 10 Mutation Not Detected Not Detected, See Comments WorkTouch MANUAL 5 4:46 PM EST In[facility] ANATOMIC PATHOLOGY LABORATORY Interpretation A negative result does [...] in the context of other clinical findings. [facility] MANUAL 5 4:46 PM EST In[facility] ANATOMIC PATHOLOGY LABORATORY Clinical History Obturator Abcess, unknown etiology [facility] MANUAL 5 4:46 PM [facility] ANATOMIC PATHOLOGY LABORATORY Test Description Intended Use: The [...] bead. Sequencing template was loaded onto an [employer]ro next generation sequencer and data was analyzed using [employer] Variant Caller and [employer] Gene software packages using OWFf75_2 (Anatoly HG19) as the reference sequence. ION Ampliseq Custom Panel JAK2(V617F) [id number] MPL CALR Contact lab for detail of gene exon/hotspot codons covered in the assay. DNA sequences used as references for this panel of genes can be found at: http://www.ncbi.nlm .nih.gov/refseq/rsg / The mutation nomenclature is based on the convention recommended by the Human Genome Variation Society (http://www.hgvs.or g/mutnomen/). Irrigationist: When appropriate multiplex PCR amplification of 5 [...] is >500X. When appropriate, mutations detected by Flavorvanilrent sequencing were confirmed as follows. Patient DNA [...] variant when testing the tumor component alone. [facility] MANUAL 5 4:46 PM EST In[facility] PATHOLOGY LABORATORY References 1. Meg valentino al. COSMIC: mining complete cancer genomes in the Catalogue of Somatic Mutations in Cancer (COSMIC) Nucleic Acids Research, 2011; 39:945-50. COSMIC Website:http://canc [employer].slick.ac.uk/cos lb 2. Ramona STOUT et al. dbSNP: [...] molecular comparisons. Leukemia. 2014 Azeem;28(7):1472-7. doi: 10.1038/keiry.2014.3. [facility] MANUAL 5 4:46 PM [facility] PATH[facility] ASR Disclaimer These tests were [...] other gene mutations not included in the Fl[employer]Drive AmpliSeq Myeloid Custom Panel v3. False positive or negative results may occur for reasons that include blood transfusions, a somatic mutation or single nucleotide polymorphism (SNP) at or near the primer binding sites or involvement of a target gene in a chromosome translocation. Moreover, negative results do not preclude the presence of mutations below detection limits of the assay. [employer] MANUAL 5 4:46 PM EST Trip[facility] ANATOMIC PATHOLOGY LABORATORY Signature . [employer] MANUAL 5 4:46 PM EST Tripbirds [facility] ANATOMIC PATHOLOGY LABORATORY Blood Structure of peripheral vein / Unknown Venipuncture / Unknown 06/05/2024 3:49 AM EST 06/05/2024 4:07 AM EST Eliazar Morgan MD LAB MOLECULAR ORDERABLES Final Result WorkTouchFLAskNshare [facility] ANATOMIC PATHOLOGY LABORATORY [address] [place] [address], * Immunoglobulins Panel (IgG, IgA, IgM) (06/05/2024 3:49 AM EST) Immunoglobulin A 164 70 - 320 mg/dL 06/05/2024 5:11 PM EST [facility] IgG, Serum 1474 600 - 1540 mg/dL 06/05/2024 5:11 PM EST [facility] Immunoglobulin M 176 50 - 300 mg/dL 06/05/2024 5:11 PM EST [facility] Blood Implantable venous catheter submitted as specimen / Unknown Venipuncture / Unknown 06/05/2024 3:49 AM EST 06/05/2024 4:20 AM EST Narrative [facility] 06/05/2024 5:11 PM EST [facility] Received Date:[id number] Eliazar Morgan MD LAB BLOOD ORDERABLES Final Res ult [facility] [address] [facility] 3rd Floor, [place] [address], [place] [phone] [facility] [address] [facility] [address], [place] [address], [place] [phone] * Folate (06/05/2024 3:49 AM EST) Folate 15.5 4.8 - 24.2 ng/mL 06/05/2024 5:39 AM EST [facility] LAB[facility] Blood Implantable venous catheter submitted as specimen / Unknown Venipuncture / Unknown 06/05/2024 3:49 AM EST 06/05/2024 4:20 AM EST Eliazar Morgan MD LAB BLOOD ORDERABLES Final Res ult Performing Organization Address [facility]/ZIP Co de Phone Number [facility] CLINICAL PATHOLOGY LABORATORY [address] [place] [address], * (ABNORMAL) Vitamin B12 (06/05/2024 3:49 AM EST) Vitamin B12 1,249(H) 232 - 1,245 pg/mL 06/05/2024 5:39 AM EST [facility] LAB[facility] Blood Implantable venous catheter submitted as specimen / Unknown Venipuncture / Unknown 06/05/2024 3:49 AM EST 06/05/2024 4:20 AM EST us Eliazar Morgan MD LAB BLOOD ORDERABLES Final Res ult [facility] [address] [place] [address], [place] * Lactic Acid, Plasma (06/04/2024 10:41 PM EST) Lactic Acid 1.1 0.5 - 1.9 mmol/L 06/04/2024 11:18 PM EST [facility] CLINICAL PATHOLOGY LABORATORY Comment: Sepsis Screening: Initial [...] ORDERABLES Final Res ult Performing Organization Address [facility] Co de Phone Number [facility]OR[facility] [address] [place] [address], * Type and screen (06/04/2024 10:37 PM [...] Edited Result - Final Performing Organization Address [facility] Co de Phone Number [facility] [address] [place] [address], * Von Willebrand Antigen (06/04/2024 11:04 AM EST) Pathologist [facility] Von Willebrand Factor Antigen 111 50 - 217 % 06/06/2024 1:04 PM EST BARRETT MAZA (ADAM) Blood Structure of peripheral vein / Unknown Venipuncture / Unknown 06/04/2024 11:04 AM EST 06/04/2024 11:14 AM EST Matthew MAZA (ADAM) - 06/06/2024 1:04 PM EST [facility] Received Date:[id number] Eliazar Morgan MD LAB BLOOD ORDERABLES Final Res ult Performing Organization Address City/[facility] Co de Phone Number BARRETT LEE) [address] [place], [place] , [place] * Factor 8 Ristocetin Cofactor (06/04/2024 11:04 AM EST) Pathologist [facility] Ristocetin Cofactor 68 42 - 200 % normal 06/07/2024 3:08 PM EST BARRETT MAZA (ADAM) Blood Structure of peripheral vein / Unknown Venipuncture / Unknown 06/04/2024 11:04 AM EST 06/04/2024 11:14 AM EST Matthew LEE) - 06/07/2024 3:08 PM EST [facility] Received Date:[id number] Eliazar Morgan MD LAB BLOOD ORDERABLES Final Res ult Performing Organization Address City/[facility] Co de Phone Number BARRETT LEE) [address] [place], [place] , [place] * (ABNORMAL) Manual Differential (06/04/2024 9:57 AM EST) Only the most recent of2 resultswithin the time period is included. Pathologist [facility] Neutrophil %, Manual 67 % 06/04/2024 11:00 AM EST [facility] Band % 1 0 - 7 % 06/04/2024 11:00 AM EST [facility] Lymphocyte %, Manual 18 % 06/04/2024 11:00 AM EST [facility] Monocyte %, Manual 9 % 06/04/2024 11:00 AM EST [email or web address] Eosinophil %, Manual 0 % 06/04/2024 11:00 AM EST [email or web address] Basophil %, Manual 1 % 06/04/2024 11:00 AM EST [email or web address] Reactive Lymphocyte % 4 0 - 6 % 06/04/2024 11:00 AM EST [facility] Total Neutrophil #, Manual 6.94 1.50 - 7.80 10*3/uL 06/04/2024 11:00 AM EST [email or web address] Bands #,Manual 0.10 10*3/uL 06/04/2024 11:00 AM EST [facility] Total Lymph #, Manual 2.24 0.85 - 3.90 10*3/uL 06/04/2024 11:00 AM EST [facility] Monocyte #, Manual 0.92 0.20 - 0.95 10*3/uL 06/04/2024 11:00 AM EST [email or web address] Eosinophil #, Manual 0.00(L) 0.02 - 0.50 10*3/uL 06/04/2024 11:00 AM EST [facility] Basophil #, Manual 0.10 0.00 - 0.20 10*3/uL 06/04/2024 11:00 AM EST [employer] [facility] PATH[facility] LABORAT[facility] Reactive Lymphocytes # 0.41 10*3/uL 06/04/2024 11:00 AM EST [facility] Platelet Estimate Increased (A) Adequate 06/04/2024 11:00 AM EST [employer] [facility] LABOR[facility] RBC Morphology Normal Normal, No clinically significant RBC morphology present (ICSH guidelines, 2015). 06/04/2024 11:00 AM EST [facility] PATHOLOG[facility] LABORAT[facility] Total Cells Counted 114 06/04/2024 11:00 AM EST [facility]IN[facility] PATHOLOGY LABORATORY Blood Structure of peripheral vein / Unknown Venipuncture / Unknown 06/04/2024 9:57 AM EST 06/04/2024 10:05 AM EST Chelsea Salinas MD LAB BLOOD ORDERABLES Final Resul t [facility] CLINICAL PATHOLOGY LABORATORY [address] [place] [address], [place] * Moreno (SM) Antibody (06/04/2024 3:44 AM EST) Sm Antibody <1.0 NEG <1.0 NEG AI 06/04/2024 2:23 PM EST [facility] Blood Structure of peripheral vein / Unknown Venipuncture / Unknown 06/04/2024 3:44 AM EST 06/04/2024 4:03 AM EST Narrative [facility] - 06/04/2024 2:23 PM EST [facility] Received Date: Chelsea Salinas MD LAB BLOOD ORDERABLES Final Resul t Performing Organization Address City/[facility]/ZIP Co de Phone Number [facility] [address] [facility] [address], [place] [address], [place] [phone] [facility] [address], [place] [address], [place] [phone] * (ABNORMAL) Iron Saturation (06/04/2024 3:44 AM EST) Iron Saturation 11(L) 20 - 50 % 8:48 AM EST [facility] Iron 26(L) 30 - 160 ug/dL 06/04/2024 8:48 AM EST [facility] Transferrin 192(L) 200 - 360 mg/dL 06/04/2024 8:48 AM EST [facility] Total Iron Binding Capacity 240(L) 255 - 450 ug/dL 06/04/2024 8:48 AM EST [facility] Blood Structure of peripheral vein / Unknown Venipuncture / Unknown 06/04/2024 3:44 AM EST 06/04/2024 4:03 AM EST us Chelsea Salinas MD LAB BLOOD ORDERABLES Final Resul t [facility] CLIN[facility] PATHOLOGY LABORATORY [address] [place] [address], * Paraneoplastic Antibody Evaluation w/Reflex to Titer and Line Blot, Basic, Serum (06/04/2024 3:44 AM EST) Tissue IFA Observation(s) SEE NOTE 06/14/2024 3:40 AM EST [facility] [place] Comment: Staining of HEp2 cells suggests nuclear non-neuronal specific antibodies are present. ?? No fluorescence observed on neuronal tissue. ANNA1 (HU) Ab, IFA NEGATIVE NEGATIVE 2024 3:40 AM EST [facility] ANNA2 (RI) AB, IFA NEGATIVE NEGATIVE 2024 3:40 AM EST [facility] [place] ANNA3 AB, IFA NEGATIVE NEGATIVE 06/14/2024 3:40 AM EST [facility] [place] PCA1 (YO) AB, IFA NEGATIVE NEGATIVE 025 3:40 AM EST [facility] [place] PCA2 Ab, IFA NEGATIVE NEGATIVE 06/14/2024 3:40 AM EST [facility] [place] FISH BIN TENDER TR (DNER) Ab, IFA NEGATIVE NEGATIVE 06/14/2024 3:40 AM EST [facility] [place] AGNA/SOX1 Ab, IFA NEGATIVE NEGATIVE 025 3:40 AM EST [facility] Amphiphysin Ab, IFA NEGATIVE NEGATIVE 06/14/2024 3:40 AM EST [facility] [place] CRMP5/CV2 AB, IFA NEGATIVE NEGATIVE 025 3:40 AM EST [facility] Comment: The absence of detectable anti-neuronal autoantibodies in this test does not exclude an idiopathic or paraneoplastic autoimmune neurological disorder. Additional testing, including cell-based assays for antibodies to surface antigens, may be indicated. Testing using both CSF and serum increases sensitivity for detection. For additional information, please refer to https://www.Sanivation/rxz798 (This link is being provided for informational/educational purposes only.) This test was developed and its analytical performance characteristics have been determined by [employer]. It has not been cleared or approved by FDA. This assay has been validated pursuant to the CLIA regulations and is used for clinical purposes. Striated Muscle Ab Screen NEGATIVE NEGATIVE 06/14/2024 3:40 AM EST [facility] Comment: This test was developed and its analytical performance characteristics have been determined by [employer]. It has not been cleared or approved by FDA. This assay has been validated pursuant to the CLIA regulations and is used for clinical purposes. Voltage Gated Calcium Channel (VGCC) Type P/Q Ab <30 <30 pmol/L 06/14/2024 3:40 AM EST [facility] Voltage Gated Potassium Channel (VGKC) Ab <80 <80 pmol/L 06/14/2024 3:40 AM EST [facility] Comment: This test was developed and its analytical performance characteristics have been determined by [employer]. It has not been cleared or approved by FDA. This assay has been validated pursuant to the CLIA regulations and is used for clinical purposes. Acetylcholine Receptor Ganglionic (Alpha 3) Ab <55 <55 pmol/L 06/14/2024 3:40 AM EST [facility] Comment: Reference Ranges for Acetylcholine Receptor Ganglionic Antibody: Negative: ?? <55 pmol/L Borderline: 55-160 pmol/L Positive: ?? >160 pmol/L This test was developed and its analytical performance characteristics have been determined by [employer]. It has not been cleared or approved by FDA. This assay has been validated pursuant to the CLIA regulations and is used for clinical purposes. Voltage Gated Calcium Channel (VGCC) Type N Ab <54 <54 pmol/L 06/14/2024 3:40 AM EST [facility] Comment: This test was developed and its analytical performance characteristics have been determined by [employer]. It has not been cleared or approved by FDA. This assay has been validated pursuant to the CLIA regulations and is used for clinical purposes. Acetylcholine Receptor Binding Antibody <0.30 nmol/L 06/14/2024 3:40 AM EST [facility] Comment: Reference Ranges for Acetylcholine Receptor ??Binding Antibody: Negative: < or =0.30 nmol/L Equivocal: ??0.31-0.49 nmol/L Positive: > or =0.50 nmol/L Blood Structure of peripheral vein / Unknown Venipuncture / Unknown 06/04/2024 3:44 AM EST 06/04/2024 4:03 AM EST [facility]RETT PERALTA - 06/14/2024 3:40 AM EST [facility] Received Date: us Chelsea Salinas MD LAB BLOOD ORDERABLES Final Resul t [facility] PERALTA [address] [facility] 3[address] Floor, [place] [address], [place] [phone] [facility] [address] [place] [address], [place] [phone] * AMADOU Screen, IFA, w/Reflex to Titer & Pattern (06/04/2024 3:44 AM EST) Pathologist [facility] AMADOU Screen, IFA NEGATIVE NEGATIVE 9:35 AM EST [facility] Comment: AMADOU IFA is a first [...] AC-0: Negative International Consensus on AMADOU Patterns (https://doi.org/10.1515/itxr-6808-0845) For additional information, please refer to http://education.[employer]/faq/AEG426 (This link is being provided for informational/ educational purposes only.) ?? Blood Structure of peripheral vein / Unknown Venipuncture / Unknown 06/04/2024 3:44 AM EST 06/04/2024 4:02 AM EST [facility] - 06/08/2024 9:35 AM EST [facility] Received Date: Chelsea Salinas MD LAB BLOOD ORDERABLES Final Resul t [facility] [address] [facility] [address] Floor, [place] [address], [facility] [address] [facility] [address] Floor, [place] [address], * DNA Antibody, Double-stranded (06/04/2024 3:44 AM EST) DNA (Ds) Antibody <1 IU/mL 025 7:07 AM EST [facility] Comment: ? IU/mL ? Interpretation ? < or = 4 ?Negative ? 5-9 ? Indeterminate ? > or = 10 ?? Positive Blood Structure of peripheral vein / Unknown Venipuncture / Unknown 06/04/2024 3:44 AM EST 06/04/2024 4:02 AM EST Narrative [facility] - 06/07/2024 7:07 AM EST [facility] Received Date:[id number] Chelsea Salinas MD LAB BLOOD ORDERABLES Final Resul t Performing Organization Address [facility]/ZIP Co de Phone Number [facility] [address], [place] [address], [place] [phone] [facility] [address] [facility] [address] [facility], [place] [address], [place] [phone] * Aldolase (06/04/2024 3:44 AM EST) Aldolase 4.7 <=8.1 U/L 06/08/2024 2:5 8 AM EST [employer] ([employer]) Blood Structure of peripheral vein / Unknown Venipuncture / Unknown 06/04/2024 3:44 AM EST 06/04/2024 4:02 AM EST Narrative [facility] - 06/08/2024 2:58 AM EST [facility] Received Date:[id number] us Chelsea Salinas MD LAB BLOOD ORDERABLES Final Resul t Performing Organization Address [facility]/ZIP Co de Phone Number [address], [place] [address], [place] [phone] [facility] [employer] ServiceDARCY ([employer]) [address] [place] [address] , [place] * MAINTENANCE ANALYST Antibody (06/04/2024 3:44 AM EST) MAINTENANCE ANALYST Antibody <1.0 NEG <1.0 NEG AI 06/07/2024 7:07 AM EST [facility] Blood Structure of peripheral vein / Unknown Venipuncture / Unknown 06/04/2024 3:44 AM EST 06/04/2024 4:02 AM EST Narrative [facility] - 06/07/2024 7:07 AM EST [facility] Received Date: Chelsea Salinas MD LAB BLOOD ORDERABLES Final Resul t [facility]RE[facility] PERALTA [address] [facility] [address] Floor, [place] [address], [place] [phone] [facility] [address] [facility] [address], [place] [address], [place] [phone] * (ABNORMAL) Vitamin D 1,25 Dihydroxy (06/04/2024 3:44 AM EST) [facility] Vitamin D,1,25 (OH)2,Total 17(L) 18 - 72 pg/mL 06/07/2024 5:16 PM EST [facility] Vitamin D3, 1,25 (OH)2 17 pg/mL 06/07/2024 5:16 PM EST [facility] Vitamin D2, 1,25 (OH)2 <8 pg/mL 06/07/2024 5:16 PM EST [facility] Comment: Vitamin D3, 1,25(OH)2 indicates both endogenous production and supplementation. Vitamin D2, 1,25(OH)2 is an indicator of exogenous sources, such as diet or supplementation. ??Interpretation and therapy are based on measurement of Vitamin D,1,25(OH)2, Total. This test was developed and its analytical performance characteristics have been determined by [employer] [facility], [place], [place]. It has not been cleared or approved by the FDA. This assay has been validated pursuant to the CLIA regulations and is used for clinical purposes. Blood Structure of peripheral vein / Unknown Venipuncture / Unknown 06/04/2024 3:44 AM EST 06/04/2024 4:02 AM EST Narrative [facility] 06/07/2024 5:16 PM EST [facility] Received Date: Chelsea Salinas MD LAB BLOOD ORDERABLES Final Resul t [facility]RETT PERALTA [address] [facility] [address] Floor, [place] [address], [place] [phone] [facility] ([employer]) [address] [place] [address], [place] * (ABNORMAL) Complement C3 (06/04/2024 3:44 AM EST) Complement Component C3C 248(H) 83 - 193 mg/dL 06/05/2024 2:15 PM EST [facility] Blood Structure of peripheral vein / Unknown Venipuncture / Unknown 06/04/2024 3:44 AM EST 06/04/2024 4:02 AM EST Narrative [facility] - 06/05/2024 2:15 PM EST [facility] Received Date: us Chelsea Salinas MD LAB BLOOD ORDERABLES Final Resul t [facility] [address] [facility] [address] [facility], [place] [address], [place] [phone] [facility] [address] [facility] [address] Floor, [place] [address], [place] [phone] * Complement C4 (06/04/2024 3:44 AM EST) Complement Component C4C 42 15 - 57 mg/dL 06/05/2024 2:15 PM EST [facility] Blood Structure of peripheral vein / Unknown Venipuncture / Unknown 06/04/2024 3:44 AM EST 06/04/2024 4:02 AM EST Narrative [facility] - 06/05/2024 2:15 PM EST [facility] Received Date:[id number] us Chelsea Salinas MD LAB BLOOD ORDERABLES Final Resul t [facility] [address] [facility] [address] Floor, [place] [address], [place] [phone] [address], [place] [address], [place] [phone] * (ABNORMAL) Ferritin (06/04/2024 3:44 AM EST) Ferritin 451.0(H) 11.0 - 306.0 ng/mL 06/04/2024 8:48 AM EST [facility] Blood Structure of peripheral vein / Unknown Venipuncture / Unknown 06/04/2024 3:44 AM EST 06/04/2024 4:03 AM EST Chelsea Salinas MD LAB BLOOD ORDERABLES Final Resul t Performing Organization Address City/[facility]/ZIP Co de Phone Number [facility] [address] [place] [address], * Rheumatoid Factor (06/03/2024 6:19 PM EST) Pathologist [facility] Rheumatoid Factor <10 <14 IU/mL 06/04/2024 5:10 PM EST [facility] Blood Implantable venous catheter submitted as specimen / Unknown Venipuncture / Unknown 06/03/2024 6:19 PM EST 06/03/2024 6:36 PM EST Narrative [facility] 06/04/2024 5:10 PM EST [facility] Received Date: Chelsea Salinas MD LAB BLOOD ORDERABLES Final Resul t Performing Organization Address City/[facility]/ZIP Co de Phone Number [address] [facility], [place] [address], [place] [phone] [address], [place] [address], [place] [phone] * Lactate dehydrogenase (06/03/2024 6:19 PM EST) Pathologist [facility] LDH 188 135 - 225 U/L 06/03/2024 7:06 PM EST [facility] Blood Implantable venous catheter submitted as specimen / Unknown Venipuncture / Unknown 06/03/2024 6:19 PM EST 06/03/2024 6:36 PM EST us Chelsea Salinas MD LAB BLOOD ORDERABLES Final Resul t [facility] [address] [place] [address], [place] * MRI Cervical Spine W WO [...] obtain the completed interpretation. ? Workstation ID: [id number] Narrative 06/03/2024 2:11 PM EST EXAMINATION: MRI [...] recent bacteremia COMPARISON: ??None Resulting Agency Comment [id number] Procedure Note Hollis French MD - 06/03/2024 [...] cervical spine is otherwise preserved. Diffuse low P2lpfefr intensity is present of osseous structures. This [...] possible to obtain thecompleted interpretation. Workstation ID: [id number] us Bin Fairchild MD IM MRI PROCEDURES [...] obtain the completed interpretation. ? Workstation ID: [id number] Narrative 06/03/2024 2:11 PM EST EXAMINATION: MRI [...] recent bacteremia COMPARISON: ??None Resulting Agency Comment [id number] Procedure Note Hollis French MD - 06/03/2024 [...] cervical spine is otherwise preserved. Diffuse low I8qebxkf intensity is present of osseous structures. This [...] possible to obtain thecompleted interpretation. Workstation ID: [id number] Bin Fairchild MD IMG MRI PROCEDURES Final [...] obtain the completed interpretation. ? Workstation ID: [id number] Narrative 06/03/2024 12:03 PM EST INDICATION: Proximal [...] tissues: Within normal limits. Resulting Agency Comment [id number] Procedure Note Reyna Ortiz MD - 06/03/2024 [...] possible to obtain thecompleted interpretation. Workstation ID: [id number] Bin Fairchild MD IMG MRI PROCEDURES Final Resul t * Blood Culture, Peripheral #2 (06/02/2024 4:42 PM EST) Only the most recent of2 resultswithin the time period is included. Culture No growth after 5 days 06/07/2024 8:51 PM EST [facility] Blood Structure of peripheral vein / Unknown Venipuncture / Unknown 06/02/2024 4:42 PM EST 06/02/2024 4:42 PM EST Narrative [facility] - 06/07/2024 8:51 PM EST [facility] Received Date: MICRO NUMBER: [id number] SPECIMEN QUALITY: Adequate SOURCE: BLOOD VENOUS, PERIPHERAL STATUS: FINAL COMMENT: Aerobic and anaerobic bottle received. us Bin Fairchild MD LAB MICROBIOLOGY - GENERAL ORD ERABLES Final Result Performing Organization Address City/[facility]/ZIP Co de Phone Number [facility] [address]rd Floor, [place] [address], [place] [phone] [facility] [address], [place] [address], [place] [phone] * (ABNORMAL) Creatine Kinase (06/02/2024 12:03 PM EST) Pathologist [facility] CK 35(L) 38 - 206 U/L 06/02/2024 12:40 PM EST [facility] Blood Structure of peripheral vein / Unknown Venipuncture / Unknown 06/02/2024 12:03 PM EST 06/02/2024 12:11 PM EST Bin Fairchild MD LAB BLOOD ORDERABLES Final Res ult [facility] [address] [place] [address], * TSH Reflex Free T4 (06/02/2024 8:13 AM EST) Pathologist [facility] TSH 2.910 0.280 - 3.890 uIU/mL 06/02/2024 12:39 PM EST [facility] Comment: Females: 1st trimester ? 0.150-4.000 ??IU/mL 2nd trimester ?? 0.310-4.170 ?IU/mL 3rd trimester ?0.380-4.150 ?IU/mL Blood Structure of peripheral vein / Unknown Venipuncture / Unknown 06/02/2024 8:13 AM EST 06/02/2024 8:22 AM EST us Bin Fairchild MD LAB BLOOD ORDERABLES Final Res ult [facility] [address] [place] [address], * (ABNORMAL) CBC (06/02/2024 8:13 AM EST) WBC 11.9(H) 3.8 - 10.8 10*3/uL 06/02/2024 8:29 AM EST [email or web address] RBC 3.57(L) 3.80 - 5.10 10*6/uL 06/02/2024 8:29 AM EST [facility] Hemoglobin 9.8(L) 11.7 - 15.5 g/dL 06/02/2024 8:29 AM EST [facility] Hematocrit 31.3(L) 35.0 - 45.0 % 06/02/2024 8:29 AM EST [email or web address] MCV 87.7 80.0 - 100.0 fL 06/02/2024 8:29 AM EST [facility] MCH 27.5 27.0 - 33.0 pg 06/02/2024 8:29 AM EST [facility] MCHC 31.3(L) 32.0 - 36.0 g/dL 06/02/2024 8:29 AM EST [email or web address] RDW 14.4 11.0 - 15.0 % 06/02/2024 8:29 AM EST [email or web address] Platelets 739(H) 140 - 400 10*3/uL 06/02/2024 8:29 AM EST [facility] MPV 8.4 7.5 - 12.5 fL 06/02/2024 8:29 AM EST [facility] Blood Structure of peripheral vein / Unknown Venipuncture / Unknown 06/02/2024 8:13 AM EST 06/02/2024 8:22 AM EST us Juma Hernandez MD LAB BLOOD ORDERABLES Final R esult [facility] [address] [place] [address], [place] * CT Abd Pelvis W Contrast (06/01/2024 4:23 PM EST) Anatomical Region Laterality Modality Body Computed Tomogra phy 06/01/2024 4:41 PM EST Addenda Addendum by Mirna Haney MD on 06/01/2024 5:47 PM EST COMMUNICATION: The findings were communicated via [employer] secure chat acknowledged by Dr. Khan at 5:35 PM on 06/01/2024. If this radiology report contains a blank impression section, it is an incomplete radiology report. ??Please contact the interpreting radiologist or applicable radiology division as soon as possible to obtain the completed interpretation. ? Workstation ID: [id number] Impressions 06/01/2024 5:13 PM EST 1. Segmental [...] the ordering or responsible provider via the uBeam Findings system on 06/01/2024 5:05 PM. ??Receipt of this communication by the responsible provider will be documented in [facility] upon receiving acknowledgement if applicable, Message ID [id number]. If this radiology report contains a blank impression section, it is an incomplete radiology report. ??Please contact the interpreting radiologist or applicable radiology division as soon as possible to obtain the completed interpretation. ? Workstation ID: [id number] Narrative 06/01/2024 5:13 PM EST COMPARISON: None [...] (series 201, image 145). Resulting Agency Comment [id number] us Luz Fisher MD IMG CT PROCEDURES Edited Result - Final * Yellow Top (06/01/2024 1:24 PM EST) Extra Tube Hold for add-ons. 06/01/2024 6:05 PM EST [facility] Comment:Auto resulted. Urine Urine specimen collection, clean catch / Unknown 06/01/2024 1:24 PM EST 06/01/2024 1:24 PM EST Luz Fisher MD LAB BLOOD ORDERABLES Sherly l Result Performing Organization Address [facility]/ZIP Co de Phone Number [facility] [address] [place] [address], * Clemente Top, Urine (06/01/2024 11:09 AM EST) Extra Tube Hold for add-ons. 06/01/2024 4:05 PM EST [facility] Comment:Auto resulted. Urine Urine specimen collection, clean catch / Unknown Non-Blood Collection / Unknown 06/01/2024 11:09 AM EST 06/01/2024 1:23 PM EST Luz Fisher MD LAB URINE ORDERABLES Sherly l Result [facility] [address] [place] [address], * (ABNORMAL) Urinalysis W/Reflex to Microscopic & Culture (06/01/2024 11:09 AM EST) Color, Urine Red(A) Colorless, Light Yellow, Yellow, Dark Yellow 06/01/2024 1:47 PM EST [facility] Clarity, Urine Cloudy(A) Clear 06/01/2024 1:47 PM EST [email or web address] Specific [place], Urine 1.015 1.005 - 1.030 06/01/2024 1:47 PM EST [email or web address] pH, Urine 6.0 4.6 - 8.0 06/01/2024 1:47 PM EST [email or web address] Protein, Urine 2+(A) Negative 06/01/2024 1:47 PM EST [email or web address] Glucose, Urine Negative Negative 06/01/2024 1:47 PM EST [email or web address] Ketones, Urine Negative Negative 06/01/2024 1:47 PM EST [email or web address] Bilirubin, Urine Negative Negative 06/01/2024 1:47 PM EST [email or web address] Blood, Urine 3+(A) Negative 06/01/2024 1:47 PM EST [email or web address] Nitrite, Urine Negative Negative 06/01/2024 1:47 PM EST [email or web address] Urobilinogen, Urine Normal Normal 06/01/2024 1:47 PM EST [email or web address] Leukocyte Esterase, Urine Negative Negative 06/01/2024 1:47 PM EST [email or web address] WBC, Urine 0 0 - 2 /HPF 06/01/2024 1:47 PM EST [email or web address] RBC, Urine >180(H) 0 - 2 /HPF 06/01/2024 1:47 PM EST [email or web address] Hyaline Casts, Urine 0 0 - 2 /LPF 06/01/2024 1:47 PM EST [email or web address] Bacteria, Urine None None /HPF /HPF 06/01/2024 1:47 PM EST [email or web address] Mucus, Urine Few /LPF 06/01/2024 1:47 PM EST [email or web address] Urine Urine specimen collection, clean catch / Unknown Non-Blood Collection / Unknown 06/01/2024 11:09 AM EST 06/01/2024 1:23 PM EST us Luz Fisher MD LAB URINE ORDERABLES Sherly nasrin Result [facility] [address] [place] [address], * Pap w/HPV (05/25/2011 9:53 AM EST) Path Procedure HPV (015630) 1 ?? [id number] 1 ?? TPGAS (205841) 1 ?? Edited by: [id number] NANDA ?? [id number] - 1243 BW-SCRPT6 ?? [id number] - 2 [facility] - [facility] Specimen Labeled As: 1 CERVICAL/ENDOCERVI LAVELLE CYTO MATERIAL - Edited by: [id number] GAY [facility] - [facility] Additional Test Information Specimens were tested for high risk HPV using the FDA approved Digene Hybrid ?? Capture II kit, in the Diagnostic Molecular Oncology Lab at [facility] ?? [facility] Care. ??This test can detect [...] abnormality. ??We endorse the recommendations of the [place] Society for ?? Colposcopy and Cervical Pathology [...] complexity clinical laboratory testing. ?? Edited by: [id number] - 1243 BW-SCRPT6 [facility] - [facility] Diagnosis Thinprep Pap Test ? Adequacy: ??Satisfactory for evaluation ? Interpretation: EPITHELIAL CELL ABNORMALITY - SQUAMOUS ? Low Grade Squamous Intraepithelial Lesion ? This Pap test was examined by the ThinPrep Imaging System, [employer], [place], [place]. ?- High risk HPV DNA subtypes: POSITIVE ?? Edited by: [id number] -SCRPT6 ?? [id number] [facility] PATHOLOG[facility] - [facility] Gynecologic Clinical Data Specimen source:, THINPREP (VAGINAL, CERVICAL AND ENDOCERVICAL) [facility] Gynecologic Clinical Data First date of LMP:, 05/17/11 [facility] Pathology Codes Client Order Code:, TPHS3 [facility] Pathology Codes Bill Type:, 3RD [employer] [facility] - [facility] Data Sent To Pathologist SENT TO PATHOLOGIST ON 06/02/11 AT 1250 ?? Edited by: [id number] - 1249 [facility] - [facility] Completed Report CYTOPATH; PASSENGER ELEVATOR OPERATOR PHYSICIAN INT 1 ?? CYTOPATH C/V AUTORESCR SCR 1 [facility] Marker 1 ECA,EPITHELIAL CELL ABNORMALITIES [facility] - [facility] Marker 2 KAYLEN MORAES [facility] Marker 3 LGSIL,CT LGSIL [facility] - [facility] Marker 4 PHPV,POSITIVE HPV [facility] ANATOMIC PATHOLOGY - [facility] Marker 5 RIM,RECEIVED IN MOLECULAR [facility] - [facility] Marker 6 SW,JELLY REAL [facility]ATOM[facility] PATHOLOGY - [facility] Cc Results To OBDULIA CASTROENA OBG [id number] [facility] Signature REPORT SIGNED: REY NEWMAN MD 06/03/11 [facility] Sign Out Audit REY NEWMAN MD [id number] FINAL Y ADD [id number] [facility] Cytology / Unknown 9:53 AM EST 05/27/2011 9:53 AM EST us Immanuel Hogue MD LAB HISTORICAL RESULTS Final R esult [facility] [address] [place] [address], from Last 3 Months or Most Recently Relevant to Health Maintenance Insurance 2 [address] [place] [address] [facility] Advance Directives Documents on File Type Date Recorded Patient Manager Cardiology Expl anation Health Care Proxy 06/08/2024 9:30 AM Patrick Vázquez 10-23 * Full Code (Latest Code Status on File) Date Activated Date Inactivated Comments 06/01/2024 10:16 PM 06/09/2024 12:53 AM * Full Code Date Activated Date Inactivated Comments 06/01/2024 8:17 PM 06/01/2024 10:16 PM Healthcare Agents on File Name Relationship Healthcare Agent Relationshi p Communication Patrick Stgermain Spouse Health Care Agent Care Teams Director Of Food And Nutrition Relationship Specialty Start Date End Date Alfreda Costa [address] [place] [address] PCP - General Internal Medicine 06/01/24
--- OUTSIDE RECORDS SUMMARY | 2024-06-25 19:22 | XMS_ITS | Encounter Summary ---
Demographics Address [address] [place] [address] Mobile Phone Home Phone Email Address Preferred Language Cymro Marital Status Zoroastrianism Affiliation Unknown Race White Ethnic Group Unknown Author Organization [facility] Address [address] [place] [address] Support Name Relationship Address Phone [place] [facility] Emergency Contact 2 [address] [place] [address] Shana Danielle Emergency Contact [address] [place] [address] Care Team Providers Care Qlikview Developer Name Role Phone Elizabet Hair MD Primary Care Provider [phone] Marybeth Chacon MD Primary Care Provider Alfreda Costa DO Primary Care Provider [phone] Leela Nieto MANAGER Unavailable Unavailable Encounter Details Date Type Department Care Team (Late st Contact Info) Description 05/26/2018 Orders Only [address] [facility] [address] [place] [phone] Elizabet Hair MD [facility] Medicine [address] [place] [address] Social History Tobacco Use Types Packs/Day Years [...] as of this encounter Progress Notes * Elizabet Hair MD - 05/29/2018 8:35 AM EST Slightly anemic ( recommend repeat H and H and add b12 and folate, nurse please order), but does not explain symptoms. Iron levels are normal. Inflammatory markers, thyroid, lyme, white count all normal. More likely symptoms are from viral illness, however, it is not far off from your normal. Does not explain your symptoms. If myalgias continue please discuss with your neurologist. documented in this encounter Plan of Treatment Upcoming Encounters Date Type Department Care Team (Late st Contact Info) Description 06/27/2024 11:00 AM EST Office Visit [facility] [address] [place] [address] Deanne Ibarra PA [address] [place] [address] U 08/16/2024 10:25 AM EDT CPE - Comprehensive Physical Exam [facility] [address] [place] [address] Alfreda Costa DO [address] [place] [address] Physical - LETTER SENT TO [facility] 02/27/2025 1:15 PM EST Radiology [facility] [address] [place] [address] documented as of this encounter Procedures * Due to [place] state law, this organization might not be sharing negative HIV tests. Procedure Name Priority Date/Time Associated Diagnosis Comments BORRELIA BURGDORFERI AB (LYME), EIA WITH REFLEX IGG, IGM WB Routine 05/26/2018 3:52 PM EST Myalgia Fatigue, unspecified type Nail pitting C-REACTIVE PROTEIN (CRP) - INFLAMMATION Routine 05/26/2018 3:52 PM EST Myalgia Fatigue, unspecified type Nail pitting ERYTHROCYTE SEDIMENTATION RATE (ESR) Routine 05/26/2018 3:52 PM EST Myalgia Fatigue, unspecified type Nail pitting CBC INCLUDES DIFFERENTIAL AND PLATELET COUNT Routine 05/26/2018 3:52 PM EST Myalgia Fatigue, unspecified type Nail pitting THYROID STIMULATING HORMONE (TSH) WITH FREE T4 REFLEX, SERUM Routine 05/26/2018 3:52 PM EST Myalgia Fatigue, unspecified type Nail pitting IRON PROFILE (IRON/TIBC), SERUM Routine 05/26/2018 3:52 PM EST Myalgia Fatigue, unspecified type Nail pitting FERRITIN Routine 05/26/2018 3:52 PM EST Myalgia Fatigue, unspecified type Nail pitting documented in this encounter Results * Due to [place] state law, this organization might not be sharing negative HIV tests. * THYROID STIMULATING HORMONE (TSH) WITH FREE T4 REFLEX, SERUM (05/26/2018 3:52 PM EST) TSH 0.65 mIU/L [facility] Comment: ?Reference Range ?> or = 20 Years ??0.40-4.50 ? Ranges ?First trimester ?0.26-2.66 ?Second trimester ?? 0.55-2.73 ?Third trimester ?0.43-2.91 05/26/2018 3:52 PM EST 05/26/2018 9:04 PM EST Narrative Resulting Agency Comment [id number] us Elizabet Hair MD LABORATORY Final Res ult [facility] [address] [place] [address] * IRON PROFILE (IRON/TIBC), SERUM (05/26/2018 3:52 PM EST) Iron 74 45 - 160 mcg/dL [facility] Iron binding capacity 388 250 - 450 mcg/dL (calc) [facility] Iron saturation 19 11 - 50 % (calc) [facility] 05/26/2018 3:52 PM EST 05/26/2018 9:04 PM EST Narrative Resulting Agency Comment [id number] us Elizabet Hair MD LABORATORY Final Res ult Performing Organization Address [facility] Co de Phone Number [facility] [address] [place] [address] * FERRITIN (05/26/2018 3:52 PM EST) Pathologist [facility] Ferritin 55 10 - 232 ng/mL [facility] 05/26/2018 3:52 PM EST 05/26/2018 9:04 PM EST Narrative Resulting Agency Comment [id number] us Elizabet Hair MD LABORATORY Final Res ult Performing Organization Address [facility] Co de Phone Number [facility] [address] [place] [address] * C-REACTIVE PROTEIN (CRP) - INFLAMMATION (05/26/2018 3:52 PM EST) Pathologist [facility] C reactive protein 3.2 <8.0 mg/L [facility] 05/26/2018 3:52 PM EST 05/26/2018 9:04 PM EST Narrative Resulting Agency Comment [id number] us Elizabet Hair MD LABORATORY Final Res ult Performing Organization Address [facility] de Phone Number [facility] [address] [place] [address] * BORRELIA BURGDORFERI AB (LYME), EIA WITH REFLEX IGG, IGM WB (05/26/2018 3:52 PM EST) Borrelia burgdorferi Ab <0.90 index [facility] [...] the period when erythema migrans is apparent. 05/26/2018 3:52 PM EST 05/26/2018 9:04 PM EST Narrative Resulting Agency Comment [id number] Elizabet Hair MD LABORATORY Final Res ult Performing Organization Address [facility] Co de Phone Number [facility] [address] [place] [address] * ERYTHROCYTE SEDIMENTATION RATE (ESR), [place] (05/26/2018 3:52 PM EST) Sedimentation Rate [place] (ESR) 17 < OR = 30 mm/h [facility] 05/26/2018 3:52 PM EST 05/26/2018 9:04 PM EST Narrative Resulting Agency Comment [id number] Elizabet Hair MD LAB SAME DAY RESULT Final Result Performing Organization Address [facility] de Phone Number [facility] [address] [place] [address] * (ABNORMAL) CBC INCLUDES DIFFERENTIAL AND PLATELET COUNT (05/26/2018 3:52 PM EST) WBC 7.6 3.8 - 10.8 Thousand/u L [facility] RBC 4.01 3.80 - 5.10 Million/uL [facility] Hemoglobin 11.6(L) 11.7 - 15.5 g/dL [facility] Hematocrit 33.6(L) 35.0 - 45.0 % [facility] MCV 83.8 80.0 - 100.0 fL [facility] MCH 28.9 27.0 - 33.0 pg [facility] MCHC 34.5 32.0 - 36.0 g/dL [facility] RDW 12.8 11.0 - 15.0 % [facility] PLT 335 140 - 400 Thousand/u L [facility] MPV 9.7 7.5 - 12.5 fL [facility] Neutrophils # 4598 1500 - 7800 cells/uL [facility] Lymphocytes # 2265 850 - 3900 cells/uL [facility] Monocytes # 684 200 - 950 cells/uL [facility] Eosinophils # 30 15 - 500 cells/uL [facility] Basophils # 23 0 - 200 cells/uL [facility] Neutrophils % 60.5 % [facility] Lymphocytes % 29.8 % [facility] Monocytes % 9.0 % [facility] Eosinophils % 0.4 % [facility] Basophils % 0.3 % [facility] 05/26/2018 3:52 PM EST 05/26/2018 9:04 PM EST Narrative Resulting Agency Comment [id number] Elizabet Hair MD LAB SAME DAY RESULT Final Result Performing Organization Address City/State/[facility] Co de Phone Number [facility] [address] [place] [address] documented in this encounter Visit Diagnoses Diagnosis Myalgia Mylagia and myositis, unspecified Fatigue, unspecified type Nail pitting Other specified disease of nail documented in this encounter Additional Health Concerns Infection Onset Date Last Indicated Resolved Time COVID-19 Rule-Out 01/05/2021 01/05/2021 01/06/2021 11:16 AM EDT documented as of this encounter Care Teams Qlikview Developer Relationship Specialty Start Date End Date Elizabet Hair MD PCP - General 02/15/18 08/15/18 Marybeth Chacon MD PCP - General Internal Medicine 08/16/18 09/02/19 Alfreda Costa DO [address] [place] [address] PCP - General Internal Medicine 09/03/19 Leela Nieto NP [address] [place] [address] PCP - Backup PCP Internal Medicine 09/03/19 11/17/22 documented as of this encounter
--- OUTSIDE RECORDS SUMMARY | 2024-06-25 19:22 | XMS_ITS | Encounter Summary ---
Demographics Address [address] [place] [address] Mobile Phone Home Phone Email Address Preferred Language Guyanese Marital Status Islam Affiliation Unknown Race White Ethnic Group Unknown Author Organization [facility] Address [address] [place] [address] Support Name Relationship Address Phone [place] Emergency Contact 2 [address] [place] [address] Shana Danielle Emergency Contact [address] [place] [address] Care Team Providers Care Freelance Data Entry Name Role Phone CostaAlfreda Primary Care Provider [phone] Leela Nieto STITCHER STANDARD MACHINE Unavailable Unavailable Reason for Visit * Reason Comments Unable To Schedule The patient has decl ined the scheduling for US SOFT TISSUE HEAD AND NECK FC. The patient call back declined the exam. PER Renee Encounter Details Date Type Department Care Team (Late st Contact Info) Description 08/16/2022 Telephone CALL CENTER [address] [address] Jodie Avilez PA [address] [place] [address] Unable To Schedule (The patient has declined the scheduling for US SOFT TISSUE HEAD AND NECK FC. The patient call back declined the exam. 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 The patient has declined the scheduling for US SOFT TISSUE HEAD AND NECK FC the order will be pull from [facility] . The patient call back declined the exam. PER Renee Thank You Radiology Scheduling Dept documented in this encounter Plan of Treatment Upcoming Encounters Date Type Department Care Team (Late st Contact Info) Description 06/27/2024 11:00 AM EST Office Visit [facility] [address] [place] [address] Deanne Ibarra PA [address] [place] [address] HFU 08/16/2024 10:25 AM EDT CPE - Comprehensive Physical Exam [facility] [address] [place] [phone] Alfreda Costa DO [address] [place] [address] Physical - LETTER SENT TO [facility] 02/27/2025 1:15 PM EST Radiology [facility] [address] [place] [phone] documented as of this encounter Visit Diagnoses Not on filedocumented in this encounter Care Teams Freelance Data Entry Relationship Specialty Start Date End Date Alfreda Costa DO [address] [place] [address] PCP - General Internal Medicine 09/03/19 Leela Nieto NP [address] [place] [address] PCP - Backup PCP Internal Medicine 09/03/19 11/17/22 documented as of this encounter
--- OUTSIDE RECORDS SUMMARY | 2024-06-25 19:22 | XMS_ITS | Encounter Summary ---
Demographics Address [address] [place] [address] Mobile Phone Home Phone Email Address Preferred Language Central African Marital Status Mandaen Affiliation Unknown Race White Ethnic Group Unknown Author Organization [facility] Address [address] [place] [address] Support Name Relationship Address Phone [place] [facility] Emergency Contact 2 [address] [place] [address] Shana Danielle Emergency Contact [address] [place] [address] Care Team Providers Care Special Needs Teacher Name Role Phone Elizabet Hair MD Primary Care Provider [phone] Marybeth Chacon MD Primary Care Provider [phone] Alfreda Costa DO Primary Care Provider [phone] Leela Nieto SPIRAL WEAVER Unavailable Unavailable Encounter Details Date Type Department Care Team (Late st Contact Info) Description 05/26/2018 Orders Only [address] [facility] [address] [place] [phone] Aure Mays MD [address] [place] [phone] Social History Tobacco Use Types Packs/Day Years [...] of this encounter Progress Notes * Alfreda Sloan - 05/29/2018 8:30 AM EST Normal letter sent documented in this encounter Plan of Treatment Upcoming Encounters Date Type Department Care Team (Late st Contact Info) Description 06/27/2024 11:00 AM EST Office Visit [facility] [address] [place] [phone] Deanne Ibarra PA [address] [place] [address] HFU 08/16/2024 10:25 AM EDT CPE - Comprehensive Physical Exam [facility] [address] [place] [phone] Alfreda Costa DO [address] [place] [address] Physical - [facility] 02/27/2025 1:15 PM EST Radiology [address] Mammography [address] [place] [address] documented as of this encounter Procedures * Due to [place] [employer] law, this organization might not be sharing negative HIV tests. Procedure Name Priority Date/Time Associated Diagnosis Comments HEPATITIS B SURFACE ANTIGEN Routine 05/26/2018 3:52 PM EST Elevated liver function tests HEPATITIS C AB WITH REFLEX TO RNA PCR, SERUM Routine 05/26/2018 3:52 PM EST Elevated liver function tests HEPATIC FUNCTION PANEL (ALT,AST,ALK PH,BILI'S,TP,ALB) Routine 05/26/2018 3:52 PM EST Elevated liver function tests documented in this encounter Results * Due to [place] [employer] law, this organization might not be sharing negative HIV tests. * HEPATITIS B SURFACE ANTIGEN (05/26/2018 3:52 PM EST) Hepatitis B virus surface Ag NON-REACTI VE NON-REACT EBEN [facility] 05/26/2018 3:52 PM EST 05/26/2018 9:05 PM EST Narrative Resulting Agency Comment [id number] Elizabet Hair MD LABORATORY Final Res ult Performing Organization Address [facility] Co de Phone Number [facility] [address] [place] [address] * HEPATITIS C AB WITH REFLEX TO RNA PCR, SERUM (05/26/2018 3:52 PM EST) Pathologist [facility] Hepatitis C virus Ab NON-REACTI VE NON-REACT EBEN [facility] Hepatitis C virus Ab Signal/Cutoff 0.02 <1.00 [facility] 05/26/2018 3:52 PM EST 05/26/2018 9:05 PM EST Narrative Resulting Agency Comment [id number] Elizabet Hair MD LABORATORY Final Res ult Performing Organization Address [facility] de Phone Number [facility] [address] [place] [address] * HEPATIC FUNCTION PANEL (ALT,AST,ALK PH,BILI'S,TP,ALB) (05/26/2018 3:52 PM EST) Protein Total (Serum) 6.6 6.1 - 8.1 g/dL [facility] Albumin 4.6 3.6 - 5.1 g/dL [facility] Globulin 2.0 1.9 - 3.7 g/dL (calc) [facility] Albumin/Globulin 2.3 1.0 - 2.5 (calc) [facility] Bilirubin Total 0.5 0.2 - 1.2 mg/dL [facility] Bilirubin Direct 0.1 < OR = 0.2 mg/dL [facility] Bilirubin Indirect 0.4 0.2 - 1.2 mg/dL (calc) [facility] Alkaline phosphatase 70 33 - 130 U/L [facility] AST (SGOT) 28 10 - 35 U/L [facility] ALT (SGPT) 24 6 - 29 U/L [facility] 05/26/2018 3:52 PM EST 05/26/2018 9:05 PM EST Narrative Resulting Agency Comment [id number] Elizabet Hair MD LABORATORY Final Res ult [facility] [address] [place] [address] documented in this encounter Visit Diagnoses Diagnosis Elevated liver function tests Other abnormal blood chemistry documented in this encounter Additional Health Concerns Infection Onset Date Last Indicated Resolved Time COVID-19 Rule-Out 01/05/2021 01/05/2021 01/06/2021 11:16 AM EDT documented as of this encounter Care Teams Special Needs Teacher Relationship Specialty Start Date End Date Elizabet Hair MD PCP - General 02/15/18 08/15/18 Marybeth Chacon MD PCP - General Internal Medicine 08/16/18 09/02/19 Alfreda Costa DO [address] [place] [address] PCP - General Internal Medicine 09/03/19 Leela Nieto NP [address] [place] [address] PCP - Backup PCP Internal Medicine 09/03/19 11/17/22 documented as of this encounter
--- OUTSIDE RECORDS SUMMARY | 2024-06-25 19:22 | XMS_ITS | Encounter Summary ---
Demographics Address [address] [place] [address] Mobile Phone Home Phone Email Address Preferred Language Croatian Marital Status Christian Affiliation Unknown Race White Ethnic Group Unknown Author Organization [facility] Address [address] [place] [address] Support Name Relationship Address Phone [place] Ha[place] Emergency Contact 2 04/[address] [place] [address] Shana Danielle Emergency Contact [address] [place] [address] Care Team Providers Care Manager Mission Name Role Phone Elizabet Hair MD Primary Care Provider [phone] Marybeth Chacon MD Primary Care Provider Alfreda Costa DO Primary Care Provider Leela Nieto KITCHEN HELP HANDYMAN Unavailable Unavailable Encounter Details Date Type Department Care Team (Late st Contact Info) Description 06/14/2018 Orders Only [address] [facility] [address] [place] [phone] Elizabet Hair MD [facility] [address] [facility] [place] [address] Social History Tobacco Use Types Packs/Day Years [...] as of this encounter Progress Notes * Jud Rodriguez NP - 06/15/2018 8:38 AM EST Results letter sent, see letter body for details. documented in this encounter Plan of Treatment Upcoming Encounters Date Type Department Care Team (Late st Contact Info) Description 06/27/2024 11:00 AM EST Office Visit [facility] [address] [place] [address] Deanne Ibarra PA [address] [place] [address] HFU 08/16/2024 10:25 AM EDT CPE - Comprehensive Physical Exam [facility] [address] [place] [phone] Alfreda Costa DO [address] [place] [address] Physical - [facility] SENT [facility] 02/27/2025 1:15 PM EST Radiology [facility] Mammography 5 [place] [phone] documented as of this encounter Procedures * Due to [place] [employer] law, this organization might not be sharing negative HIV tests. Procedure Name Priority Date/Time Associated Diagnosis Comments CBC INCLUDES DIFFERENTIAL AND PLATELET COUNT Routine 06/14/2018 1:59 PM EST Low hemoglobin FOLATE, SERUM Routine 06/14/2018 1:59 PM EST Low hemoglobin VITAMIN B12 (CYANOCOBALAMIN), SERUM Routine 06/14/2018 1:59 PM EST Low hemoglobin documented in this encounter Results * Due to [place] [employer] law, this organization might not be sharing negative HIV tests. * (ABNORMAL) CBC INCLUDES DIFFERENTIAL AND PLATELET COUNT (06/14/2018 1:59 PM EST) WBC 6.8 3.8 - 10.8 Thousand/u L [facility] RBC 4.13 3.80 - 5.10 Million/uL [facility] Hemoglobin 12.1 11.7 - 15.5 g/dL [facility] Hematocrit 35.3 35.0 - 45.0 % [facility] MCV 85.5 80.0 - 100.0 fL [facility] MCH 29.3 27.0 - 33.0 pg [facility] MCHC 34.3 32.0 - 36.0 g/dL [facility] RDW 12.9 11.0 - 15.0 % [facility] PLT 318 140 - 400 Thousand/u L [facility] MPV 9.7 7.5 - 12.5 fL [facility] Neutrophils # 2910 1500 - 7800 cells/uL [facility] Lymphocytes # 3162 850 - 3900 cells/uL [facility] Monocytes # 700 200 - 950 cells/uL [facility] Eosinophils # 7(L) 15 - 500 cells/uL [facility] Basophils # 20 0 - 200 cells/uL [facility] Neutrophils % 42.8 % [facility] Lymphocytes % 46.5 % [facility] Monocytes % 10.3 % [facility] Eosinophils % 0.1 % [facility] Basophils % 0.3 % [facility] 06/14/2018 1:59 PM EST 06/14/2018 6:18 PM EST Narrative Resulting Agency Comment [id number] us Elizabet Hair MD LAB SAME DAY RESULT Final Result [facility] [address] [place] [address] * FOLATE, SERUM (06/14/2018 1:59 PM EST) Folate 14.8 ng/mL [facility] Comment: ? Reference Range ? Low: ? <3.4 ? Borderline: ?3.4-5.4 ? Normal: ?>5.4 06/14/2018 1:59 PM EST 06/14/2018 6:18 PM EST Narrative Resulting Agency Comment [id number] us Elizabet Hair MD LABORATORY Final Res ult Performing Organization Address [facility] Co de Phone Number [facility] [address] [place] [address] * VITAMIN B12 (CYANOCOBALAMIN), SERUM (06/14/2018 1:59 PM EST) Vitamin B12 (Cobalamins) 940 200 - 1100 pg/mL [facility] 06/14/2018 1:59 PM EST 06/14/2018 6:18 PM EST Narrative Resulting Agency Comment [id number] Elizabet Hair MD LABORATORY Final Res ult Performing Organization Address [facility] Co de Phone Number [facility] [address] [place] [address] documented in this encounter Visit Diagnoses Diagnosis Low hemoglobin Anemia, unspecified documented in this encounter Additional Health Concerns Infection Onset Date Last Indicated Resolved Time COVID-19 Rule-Out 01/05/2021 01/05/2021 01/06/2021 11:16 AM EDT documented as of this encounter Care Teams Manager Mission Relationship Specialty Start Date End Date Elizabet Hair MD PCP - General 02/15/18 08/15/18 Marybeth Chacon MD PCP - General Internal Medicine 08/16/18 09/02/19 Alfreda Costa DO [address] [place] [address] PCP - General Internal Medicine 09/03/19 Leela Nieto NP [address] [place] [address] PCP - Backup PCP Internal Medicine 09/03/19 11/17/22 documented as of this encounter
--- OUTSIDE RECORDS SUMMARY | 2024-06-25 19:22 | XMS_ITS | Encounter Summary ---
Demographics Address [address] [place] [address] Mobile Phone Home Phone Email Address [email or web address] Preferred Language Burmese Marital Status Anabaptist Affiliation Unknown Race White Ethnic Group Unknown Author Organization [facility] Address [address] [place] [address] Support Name Relationship Address Phone [place] Ha[place] Emergency Contact 2 [address] [place] [address] Shana Danielle Emergency Contact [address] [place] [address] Care Team Providers Care General Ii Farmworker Name Role Phone CostaAlfreda Primary Care Provider Leela Nieto EDUCATION COORDINATOR Unavailable Unavailable Reason for Visit * Reason Comments Imaging Study Encounter Details Date Type Department Care Team (Late st Contact Info) Description 08/02/2022 Telephone CALL CENTER [facility] [address] [place] [address] Ramakrishna Whitt MD [address] [place] [address] Imaging Study Social History Tobacco Use Types Packs/Day Years [...] encounter Miscellaneous Notes * Telephone Encounter - Julienne Martínez RN - 08/02/2022 12:08 PM EDT Pt wants all new referrals placed for all three tests. MRI, MRA of head/MRA cartiods. All orders resent today. Co-signed for MD. * Telephone Encounter - Merrill Bowman - 08/02/2022 11:40 AM EDT pt requests to cx MRI's was advised referal exp 08/03/22 pt requests new auth and follow up after Tuesday. We will remove the order on 10/02/2022 Thank you [facility] Radiology documented in this encounter Plan of Treatment Upcoming Encounters Date Type Department Care Team (Late st Contact Info) Description 06/27/2024 11:00 AM EST Office Visit [facility] 4 [place] [address] Deanne Ibarra PA [address] [place] [address] HFU 08/16/2024 10:25 AM EDT CPE - Comprehensive Physical Exam [facility] [address] [place] [phone] Alfreda Costa DO [address] [place] [address] Physical - LETTER SENT [facility] 02/27/2025 1:15 PM EST Radiology [address] [phone] documented as of this encounter Visit Diagnoses Diagnosis TIA (transient ischemic attack) Unspecified transient cerebral ischemia documented in this encounter Care Teams General Ii Farmworker Relationship Specialty Start Date End Date Alfreda Costa DO [address] [place] [address] PCP - General Internal Medicine 09/03/19 Leela Nieto NP [address] [place] [address] PCP - Backup PCP Internal Medicine 09/03/19 11/17/22 documented as of this encounter
--- OUTSIDE RECORDS SUMMARY | 2024-06-25 19:23 | XMS_ITS | Encounter Summary ---
Demographics Address [address] [place] [address] Mobile Phone Home Phone Email Address Preferred Language Scottish Marital Status Hoahaoism Affiliation Unknown Race White Ethnic Group Unknown Author Organization [facility] Address [address] [place] [address] Support Name Relationship Address Phone [place] Haas Emergency Contact 2 [address] [place] [address] Shana Danielle Emergency Contact [address] [facility] [place] [address] Care Team Providers Care Hogshead Stock Clerk Name Role Phone Marybeth Chacon MD Primary Care Provider Alfreda Costa DO Primary Care Provider [phone] Leela Nieto BORE MILL OPERATOR Unavailable Unavailable Encounter Details Date Type Department Care Team (Late Contact Info) Description 03/01/[address] [facility] Orthopedic Surgery [address] [facility] [address] [place] [address] Ramakrishna Avendano MD Social History [...] Description 06/27/2024 11:00 AM EST Office Visit [facility] [address] [place] [phone] Deanne Ibarra PA [address] [place] [address] [facility] 08/16/2024 10:25 AM EDT CPE - Comprehensive Physical Exam [facility] [address] [place] [phone] Alfreda Costa DO [address] [place] [address] Physical - [facility] 02/27/2025 1:15 PM EST Radiology [facility] Mammography 5 [place] [address] documented as of this encounter Results * Due to [place] state law, this organization might not be sharing negative HIV tests. * XRAY SHOULDER COMPLETE MIN 2 VWS- RIGHT (DX: SHOULDER PAIN *NO INJURY* M25.511/ 719.41) FC (03/05/2019 2:24 PM EST) Anatomical Region Laterality Modality UPPER EXTREMITY Radiographic [place] 03/05/2019 7:29 PM EST Narrative 03/05/2019 7:29 PM EST 3 views right shoulder Comparison: MRI dated 12/27/2017 Findings: No fractures or dislocations. No significant arthritic change. No radiopaque foreign body. Normal visualized right chest. Impression: 1. ??Unremarkable right shoulder Procedure Note Greg Farias MD - 03/05/2019 3 views right shoulder Comparison: MRI dated 12/27/2017 Findings: No fractures or dislocations. No significant arthritic change. No radiopaque foreign body. Normal visualized right chest. Impression: 1. Unremarkable right shoulder Ramakrishna Avendano MD IMG XRAY NO CONTRAST ORDERABLES Final Result documented in this encounter Visit Diagnoses Diagnosis Pain Generalized pain Pain Generalized pain documented in this encounter Additional Health Concerns Infection Onset Date Last Indicated Resolved Time COVID-19 Rule-Out 01/05/2021 01/05/2021 01/06/2021 11:16 AM EDT documented as of this encounter Care Teams Hogshead Stock Clerk Relationship Specialty Start Date End Date Marybeth Chacon MD PCP - General Internal Medicine 08/16/18 09/02/19 Alfreda Costa DO [address] [place] [address] PCP - General Internal Medicine 09/03/19 Leela Nieto NP [address] [place] [address] PCP - Backup PCP Internal Medicine 09/03/19 11/17/22 documented as of this encounter
--- OUTSIDE RECORDS SUMMARY | 2024-06-25 19:23 | XMS_ITS | Encounter Summary ---
Demographics Address [address] [place] [address] Mobile Phone Home Phone Email Address [email or web address] Preferred Language South African Marital Status Gnosticist Affiliation Unknown Race White Ethnic Group Unknown Author Organization [facility] Address [address] [place] [address] Support Name Relationship Address Phone [place] Ha[place] Emergency Contact 2 [address] [place] [address] Shana Danielle Emergency Contact [address] [place] [address] Care Team Providers Care Analytical Manager Name Role Phone Marybeth Chacon MD Primary Care Provider [phone] Alfreda Costa DO Primary Care Provider [phone] Leela Nieto REGULATORY AFFAIRS CONSULTANT Unavailable Unavailable Encounter Details Date Type Department Care Team (Late Contact Info) Description 04/30/2019 Orders Only [facility] Orthopedic Surgery [address] [facility] [address] [place] [address] Carrington Ashley PA [address] [facility] [address] [place] [address] Social History Tobacco Use Types Packs/Day Years [...] Description 06/27/2024 11:00 AM EST Office Visit [facility] 4 [place] [address] Deanne Ibarra PA [address] [place] [address] HFU 08/16/2024 10:25 AM EDT CPE - Comprehensive Physical Exam [facility] 4 [place] [phone] Alfreda Costa DO 4 [place] [address] Physical - LETTER SENT TO [facility] 02/27/2025 1:15 PM EST Radiology [address] [facility] [facility] [address] [place] [address] documented as of this encounter Visit Diagnoses Diagnosis Bilateral hip pain Pain in joint, pelvic region and thigh documented in this encounter Additional Health Concerns Infection Onset Date Last Indicated Resolved Time COVID-19 Rule-Out 01/05/2021 01/05/2021 01/06/2021 11:16 AM EDT documented as of this encounter Care Teams Analytical Manager Relationship Specialty Start Date End Date Marybeth Chacon MD PCP - General Internal Medicine 08/16/18 09/02/19 Alfreda Costa DO 4 [place] [address] PCP - General Internal Medicine 09/03/19 Leela Nieto NP [address] [place] [address] PCP - Backup PCP Internal Medicine 09/03/19 11/17/22 documented as of this encounter
--- OUTSIDE RECORDS SUMMARY | 2024-06-25 19:23 | XMS_ITS | Encounter Summary ---
Demographics Address [address] [place] [address] Mobile Phone Home Phone Email Address Preferred Language Mosotho Marital Status Methodist Affiliation Unknown Race White Ethnic Group Unknown Author Organization [facility] Address [address] [place] [address] Support Name Relationship Address Phone [place] Haas Emergency Contact [address] [place] [address] Shana Danielle Emergency Contact [address] [place] [address] Care Team Providers Care Accounting Officer Name Role Phone Baldo Parmar MD Primary Care Provider Unavaila Ami Ansari-Megan Unavailable Unavailab Elizabet Hawthorne MD Primary Care Provider [phone] Elizabet Hair MD Primary Care Provider [phone] Marybeth Chacon MD Primary Care Provider [phone] Alfreda Costa DO Primary Care Provider [phone] Leela Nieto NAIL FEEDER Unavailable Unavailable Encounter Details Date Type Department Care Team (Late st Contact Info) Description 06/25/2014 Orders Only [facility] [address] [place] [phone] Karo Veronica NP Social History Tobacco Use Types Packs/Day [...] as of this encounter Progress Notes * Karo Veronica - 07/01/2014 7:46 AM EDTQuick Note: Nipple discharge positive for staph, patient penicillin allergic, will treat with bactrim ds 800-160 mg twice daily x 10 days. Patient should keep mammo/ultrasound appointment documented in this encounter Plan of Treatment Upcoming Encounters Date Type Department Care Team ([facility] st Contact Info) Description 06/27/2024 11:00 AM EST Office Visit [facility] 4 [place] [address] Deanne Ibarra PA 4 [place] [address] HFU 08/16/2024 10:25 AM EDT CPE - Comprehensive Physical Exam [facility] 4 [place] [phone] Alfreda Cotsa DO 4 [place] [address] Physical - [facility] 02/27/2025 1:15 PM EST Radiology [facility]. Mammography 5 [place] [phone] documented as of this encounter Procedures * Due to [facility] law, this organization might not be sharing negative HIV tests. Procedure Name Priority Date/Time Associated Diagnosis Comments CULTURE,AEROBIC WOUND,SUPERFICIAL Routine 06/25/2014 4:54 PM EST Nipple discharge in female documented in this encounter Results * Due to [place] state law, this organization might not be sharing negative HIV tests. * CULTURE, WOUND, SUPERFICIAL (06/25/2014 4:54 PM EST) Bacteria culture SEE NOTE [facility] Comment: {CULTURE, AEROBIC BACTERIA {[id number]) ??CULTURE, AEROBIC BACTERIA ??MICRO NUMBER: ?[id number] ??TEST STATUS: ? FINAL ??SPECIMEN SOURCE: ?? NOT GIVEN ??SPECIMEN QUALITY: ??ADEQUATE ??RESULT: ?Heavy growth of Staphylococcus epidermidis ??COMMENT: ? Skin irina also present. ?S.epidermidis ?INT ?? RUBY ?? AMOX/CLAVULANATE ? S ? AMP/SULBACTAM ?S ? CIPROFLOXACIN ?I ? 2 ?? CLINDAMYCIN ?R ? >=8 ?? ERYTHROMYCIN ? R ? >=8 ?? GENTAMICIN ? S ? <=0.5 ?? LEVOFLOXACIN ? R ? 4 ?? MOXIFLOXACIN ? I ? 1 ?? OXACILLIN ?S ? <=0.25 1 ?? TETRACYCLINE ? S ? <=1 ?? TRIMETHOPRIM/SULFA ? S ? <=10 ?? VANCOMYCIN ? S ? 2 S=Susceptible ??I=Intermediate ??R=Resistant ??* = Not Tested NR = Not Reported ??NN = See Therapy Comments THERAPY COMMENTS ?Note 1: ?Oxacillin-susceptible staphylococci are ?susceptible to other penicillinase-stable ?penicillins (e.g. Methicillin, Nafcillin), beta- ?lactam/beta-lactamase inhibitor combinations, and ?cephems with staphylococcal indications, including ?Cefazolin. 06/25/2014 4:54 PM EST 06/25/2014 9:29 PM EST Narrative Resulting Agency Comment [id number] Karo Veronica NAIL FEEDER LABORATORY Final Result [facility] [address] [place] [address] documented in this encounter Visit Diagnoses Diagnosis Nipple discharge in female Other sign and symptom in breast documented in this encounter Additional Health Concerns Infection Onset Date Last Indicated Resolved Time COVID-19 Rule-Out 01/05/2021 01/05/2021 01/06/2021 11:16 AM EDT documented as of this encounter Care Teams Accounting Officer Relationship Specialty Start Date End Date Baldo Parmar MD PCP - General 05/11/12 12/11/17 Ami Osullivan, JARAD PCP - Backup PCP Internal Medicine 06/16/15 11/24/17 Elizabet Hair MD PCP - General Family Medicine 12/12/17 02/14/18 Elizabet Hair MD PCP - General 02/15/18 08/15/18 Marybeth Chacon MD PCP - General Internal Medicine 08/16/18 09/02/19 Alfreda Costa DO [address] [place] [address] PCP - General Internal Medicine 09/03/19 Leela Nieto NP 4 [place] [address] PCP - Backup PCP Internal Medicine 09/03/19 11/17/22 documented as of this encounter
--- OUTSIDE RECORDS SUMMARY | 2024-06-25 19:23 | XMS_ITS | Encounter Summary ---
Demographics Address [address] [place] [address] Mobile Phone Home Phone Email Address [email or web address] Preferred Language Saudi Arabian Marital Status Christian Affiliation Unknown Race White Ethnic Group Unknown Author Organization [facility] Address [address] [place] [address] Support Name Relationship Address Phone [place] Emergency Contact 2 [address] [place] [address] Shana Danielle Emergency Contact [address] [place] [address] Care Team Providers Care Celery Cutter Name Role Phone Marybeth Chacon MD Primary Care Provider [phone] Alfreda Costa DO Primary Care Provider [phone] Leela Nieto ENDOCRINOLOGY NURSE Unavailable Unavailable Encounter Details Date Type Department Care Team (Late st Contact Info) Description 08/23/2018 Orders Only [facility] 4 [place] [phone] Jodie Avilez PA 4 [place] [address] Social History Tobacco Use Types Packs/Day Years [...] as of this encounter Progress Notes * Jodie Avilez PA - 08/24/2018 8:00 AM EDT TM * Jodie Avilez PA - 08/24/2018 7:58 AM EDT MyChart. documented in this encounter Plan of Treatment Upcoming Encounters Date Type Department Care Team (Late st Contact Info) Description 06/27/2024 11:00 AM EST Office Visit [facility] 4 [place] [address] Deanne Ibarra PA 4 [place] [address] HFU 08/16/2024 10:25 AM EDT CPE - Comprehensive Physical Exam [facility] 4 [place] [address] Alfreda Costa DO 4 [place] [address] Physical - [facility] SENT TO [facility] 02/27/2025 1:15 PM EST Radiology [facility] [address] [place] [address] documented as of this encounter Procedures * Due to [place] state law, this organization might not be sharing negative HIV tests. Procedure Name Priority Date/Time Associated Diagnosis Comments CBC INCLUDES DIFFERENTIAL AND PLATELET COUNT Routine 08/23/2018 3:09 PM EDT Recurrent syncope THYROID STIMULATING HORMONE (TSH) WITH FREE T4 REFLEX, SERUM Routine 08/23/2018 3:09 PM EDT Recurrent syncope HEPATIC FUNCTION PANEL (ALT,AST,ALK PH,BILI'S,TP,ALB) Routine 08/23/2018 3:09 PM EDT Recurrent syncope BASIC METABOLIC PANEL WITH (GFR) Routine 08/23/2018 3:09 PM EDT Recurrent syncope documented in this encounter Results * Due to [place] state law, this organization might not be sharing negative HIV tests. * ALANINE AMINOTRANSFERASE (ALT), SERUM (10/23/2018 2:53 PM EDT) ALT (SGPT) 16 6 - 29 U/L [facility] 10/23/2018 2:53 PM EDT 10/23/2018 8:01 PM EDT Narrative Resulting Agency Comment [id number] [facility] SAME DAY RESULT Final Re sult Performing Organization Address City/[facility]/ZIP Co de Phone Number [facility] [address] [place] [address] * THYROID STIMULATING HORMONE (TSH) WITH FREE T4 REFLEX, SERUM (08/23/2018 3:09 PM EDT) TSH 0.81 0.40 - 4.50 mIU/L [facility] 08/23/2018 3:09 PM EDT 08/24/2018 12:56 AM EDT Narrative Resulting Agency Comment [id number] [facility] Final Result Performing Organization Address [facility] Co de Phone Number [facility] [address] [place] [address] * (ABNORMAL) HEPATIC FUNCTION PANEL (ALT,AST,ALK PH,BILI'S,TP,ALB) (08/23/2018 3:09 PM EDT) Protein Total (Serum) 6.4 6.1 - 8.1 g/dL [facility] Albumin 4.5 3.6 - 5.1 g/dL [facility] Globulin 1.9 1.9 - 3.7 g/dL (calc) [facility] Albumin/Globulin 2.4 1.0 - 2.5 (calc) [facility] Bilirubin Total 0.2 0.2 - 1.2 mg/dL [facility] Bilirubin Direct 0.0 < OR = 0.2 mg/dL [facility] Bilirubin Indirect 0.2 0.2 - 1.2 mg/dL (calc) [facility] Alkaline phosphatase 108 33 - 130 U/L [facility] AST (SGOT) 35 10 - 35 U/L [facility] ALT (SGPT) 43(H) 6 - 29 U/L [facility] 08/23/2018 3:09 PM EDT 08/24/2018 12:56 AM EDT Narrative Resulting Agency Comment [id number] [facility] Final Result [facility] [address] [place] [address] * (ABNORMAL) BASIC METABOLIC PANEL WITH (GFR) (08/23/2018 3:09 PM EDT) Glucose 112(H) 65 - 99 mg/dL [facility] Comment: ? Fasting reference interval For someone without known diabetes, a glucose value between 100 and 125 mg/dL is consistent with prediabetes and should be confirmed with a follow-up test. Urea Nitrogen Blood (BUN) 19 7 - 25 mg/dL [facility] Creatinine 0.73 0.50 - 1.05 mg/dL [facility] Comment: For patients >49 years of age, the reference limit for Creatinine is approximately 13% higher for people identified as -Albanian. EGFR 92 > OR = 60 mL/min/1 .73m2 [facility] GFR () 107 > OR = 60 mL/min/1 .73m2 [facility] BUN/Creatinine Ratio NOT APPLICABLE 6 - 22 (calc) [facility] Sodium 137 135 - 146 mmol/L [facility] Potassium 4.5 3.5 - 5.3 mmol/L [facility] Chloride 100 98 - 110 mmol/L [facility] Carbon dioxide 30 20 - 32 mmol/L [facility] Calcium 9.3 8.6 - 10.4 mg/dL [facility] 08/23/2018 3:09 PM EDT 08/24/2018 12:56 AM EDT Narrative [facility] - 08/24/2018 4:34 AM EDT Please note that this estimated [...] needs for GFR calculation. Resulting Agency Comment [id number] [facility] Final Result Performing Organization Address [facility] Co de Phone Number [facility] [address] [place] [address] * CBC INCLUDES DIFFERENTIAL AND PLATELET COUNT (08/23/2018 3:09 PM EDT) WBC 6.6 3.8 - 10.8 Thousand/u L [facility] RBC 4.25 3.80 - 5.10 Million/uL [facility] Hemoglobin 12.0 11.7 - 15.5 g/dL [facility] Hematocrit 36.0 35.0 - 45.0 % [facility] MCV 84.7 80.0 - 100.0 fL [facility] MCH 28.2 27.0 - 33.0 pg [facility] MCHC 33.3 32.0 - 36.0 g/dL [facility] RDW 12.9 11.0 - 15.0 % [facility] PLT 284 140 - 400 Thousand/u L [facility] MPV 9.7 7.5 - 12.5 fL [facility] Neutrophils # 3280 1500 - 7800 cells/uL [facility] Lymphocytes # 2614 850 - 3900 cells/uL [facility] Monocytes # 667 200 - 950 cells/uL [facility] Eosinophils # 20 15 - 500 cells/uL [facility] Basophils # 20 0 - 200 cells/uL [facility] Neutrophils % 49.7 % [facility] Lymphocytes % 39.6 % [facility] Monocytes % 10.1 % [facility] Eosinophils % 0.3 % [facility] Basophils % 0.3 % [facility] 08/23/2018 3:09 PM EDT 08/24/2018 12:56 AM EDT Narrative Resulting Agency Comment [id number] [facility] SAME DAY RESULT Final Re sult Performing Organization Address [facility] Co de Phone Number [facility] [address] [place] [address] documented in this encounter Visit Diagnoses Diagnosis Recurrent syncope Elevated ALT measurement Nonspecific elevation of levels of transaminase or lactic acid dehydrogenase (LDH) documented in this encounter Additional Health Concerns Infection Onset Date Last Indicated Resolved Time COVID-19 Rule-Out 01/05/2021 01/05/2021 01/06/2021 11:16 AM EDT documented as of this encounter Care Teams Celery Cutter Relationship Specialty Start Date End Date Marybeth Chacon MD PCP - General Internal Medicine 08/16/18 09/02/19 Alfreda Costa DO [address] [facility] [place] [address] PCP - General Internal Medicine 09/03/19 Leela Nieto NP [address] [place] [address] PCP - Backup PCP Internal Medicine 09/03/19 11/17/22 documented as of this encounter
--- OUTSIDE RECORDS SUMMARY | 2024-06-25 19:23 | XMS_ITS | Encounter Summary ---
Demographics Address [address] [place] [address] Mobile Phone Home Phone Email Address Preferred Language Bolivian Marital Status Bahai Affiliation Unknown Race White Ethnic Group Unknown Author Organization [facility] Address [address] [place] [address] Support Name Relationship Address Phone [place] Emergency Contact 2 [address] [place] [address] Shana Danielle Emergency Contact [address] [place] [address] Care Team Providers Care Hematology Technologist Name Role Phone Alfreda Costa DO Primary Care Provider [phone] Encounter Details Date Type Department Care Team (Late st Contact Info) Description 02/16/2024 Orders Only [facility] 4 [place] [address] Alfreda Costa DO 4 [place] [address] Medications Social History Tobacco Use Types Packs/Day Years [...] Upcoming Encounters Date Type Department Care Team ([facility] st Contact Info) Description 06/27/2024 11:00 AM EST Office Visit [facility] 4 [place] [address] Deanne Ibarra PA 4 [place] [address] HFU 08/16/2024 10:25 AM EDT CPE - Comprehensive Physical Exam [facility] 4 [place] [phone] Alfreda Costa DO 4 [place] [address] Physical - [facility] 02/27/2025 1:15 PM EST Radiology [facility]. Mammography 5 [place] [phone] documented as of this encounter Procedures * Due to [place] state law, this organization might not be sharing negative HIV tests. Procedure Name Priority Date/Time Associated Diagnosis Comments MEASLES IGG AB (RUBEOLA) Routine 02/16/2024 11:33 AM EDT Need for mmrvnge-lqiyo-edpgx la (MMR) vaccine RUBELLA ANTIBODY IGG, SERUM Routine 02/16/2024 11:33 AM EDT Need for nqqyvsg-eoand-wdwpc la (MMR) vaccine MUMPS VIRUS ANTIBODY, IGG, SERUM Routine 02/16/2024 11:33 AM EDT Need for jylzuld-vwipd-dihms la (MMR) vaccine SJOGRENS SYNDROME ANTIBODIES (SSA AND SSB) Routine 02/16/2024 11:33 AM EDT Dry mouth ERYTHROCYTE SEDIMENTATION RATE (ESR) Routine 02/16/2024 11:33 AM EDT Arthralgia, unspecified joint documented in this encounter Results * Due to [place] state law, this organization might not be sharing negative HIV tests. * MUMPS VIRUS ANTIBODY, IGG, SERUM (02/16/2024 11:33 AM EDT) Mumps virus Ab.IgG 16.30 AU/mL [facility] Comment: AU/mL ? Interpretation ------- ? <9.00 ? Not consistent with immunity 9.00-10.99 ?Equivocal >10.99 ?Consistent with immunity The presence of mumps IgG antibody suggests immunization or past or current infection with mumps virus. 02/16/2024 11:3 3 AM EDT 02/17/2024 12:25 AM EDT Narrative Resulting Agency Comment [id number] Alfreda Costa DO LABORATORY Final Result [facility] [address] [place] [address] * MEASLES IGG AB (RUBEOLA) (02/16/2024 11:33 AM EDT) Measles virus Ab.IgG 88.70 AU/mL [facility] Comment: AU/mL ?Interpretation ----- ? <13.50 ? Not consistent with immunity 13.50-16.49 ?Equivocal >16.49 ? Consistent with immunity The presence of measles IgG suggests immunization or past or current infection with measles virus. For additional information, please refer to http://[facility].newBrandAnalytics/faq/EHC032 (This link is being provided for informational/ educational purposes only.) 02/16/2024 11:3 3 AM EDT 02/17/2024 12:25 AM EDT Narrative Resulting Agency Comment [id number] Alfreda Costa DO LABORATORY Final Result Performing Organization Address [facility] de Phone Number [facility] [address] [place] [address] * RUBELLA ANTIBODY IGG, SERUM (02/16/2024 11:33 AM EDT) Rubella virus Ab.IgG 4.68 Index [facility] Comment: ?Index ?Interpretation ?----- ?<0.90 ?Not consistent with immunity ?0.90-0.99 ?Equivocal ?> or = 1.00 ?Consistent with immunity The presence of rubella IgG antibody suggests immunization or past or current infection with rubella virus. 02/16/2024 11:3 3 AM EDT 02/17/2024 12:25 AM EDT Narrative Resulting Agency Comment [id number] Alfreda Costa DO LABORATORY Final Result Performing Organization Address [facility] de Phone Number [facility] [address] [place] [address] * SJOGRENS SYNDROME ANTIBODIES (SSA AND SSB) (02/16/2024 11:33 AM EDT) Sjogrens syndrome-A extractable nuclear Ab <1.0 NEG <1.0 NEG AI [facility] Sjogrens syndrome-B extractable nuclear Ab <1.0 NEG <1.0 NEG AI [facility] 02/16/2024 11:3 3 AM EDT 02/17/2024 12:25 AM EDT Narrative Resulting Agency Comment [id number] Alfreda Costa DO LABORATORY Final Result [facility] [address] [place] [address] * ERYTHROCYTE SEDIMENTATION RATE (ESR), WESTERGREN (02/16/2024 11:33 AM EDT) Sedimentation Rate [place] (ESR) 2 < OR = 30 mm/h [facility] 02/16/2024 11:3 3 AM EDT 02/17/2024 12:25 AM EDT Narrative Resulting Agency Comment [id number] Alfreda Costa DO LAB SAME DAY RESULT Final Result Performing Organization Address City/[facility] Co de Phone Number [facility] [address] [place] [address] documented in this encounter Visit Diagnoses Diagnosis Arthralgia, unspecified joint Dry mouth Disturbance of salivary secretion Need for mgwcdhw-wstru-bcwxghm (MMR) vaccine Need for prophylactic vaccination with adbbdhg-ypkrw-xoeyrbk (MMR) vaccine documented in this encounter Care Teams Hematology Technologist Relationship Specialty Start Date End Date Alfreda Costa DO [address] [place] [address] PCP - General Internal Medicine 09/03/19 documented as of this encounter
--- OUTSIDE RECORDS SUMMARY | 2024-06-25 19:23 | XMS_ITS | Encounter Summary ---
Demographics Address [address] [place] [address] Mobile Phone Home Phone Email Address Preferred Language Citizen Of [place] Marital Status Confucianist Affiliation Unknown Race White Ethnic Group Unknown Author Organization [facility] Address [address] [place] [address] Support Name Relationship Address Phone [place] Ha[place] Emergency Contact 2 [address] [place] [address] Shana Danielle Emergency Contact [address] [place] [address] Care Team Providers Care Brass Plater Name Role Phone Baldo Parmar MD Primary Care Provider Unavaila Ami Ansari-C Unavailable Unavailab Elizabet Hawthorne MD Primary Care Provider [phone] Elizabet Hair MD Primary Care Provider [phone] Marybeth Chacon MD Primary Care Provider [phone] Alfreda Costa DO Primary Care Provider [phone] Leela Nieto DEVELOPMENT INTERN Unavailable Unavailable Encounter Details Date Type Department Care Team ([facility] Contact Info) Description 05/15/2015 Orders Only [facility] [address] [place] [phone] Baldo Parmar MD Social History Tobacco Use [...] Description 06/27/2024 11:00 AM EST Office Visit [facility] 4 [place] [phone] Deanne Ibarra PA 4 [place] [address] HFU 08/16/2024 10:25 AM EDT CPE - Comprehensive Physical Exam [facility] 4 [place] [phone] Alfreda Costa DO 4 [place] [address] Physical - LETTER SENT [facility] 02/27/2025 1:15 PM EST Radiology [address] [facility] [facility]amm[facility] 5 [place] [address] documented as of this encounter Visit Diagnoses Diagnosis Nail problem- Primary Unspecified disease of nail documented in this encounter Additional Health Concerns Infection Onset Date Last Indicated Resolved Time COVID-19 Rule-Out 01/05/2021 01/05/2021 01/06/2021 11:16 AM EDT documented as of this encounter Care Teams Brass Plater Relationship Specialty Start Date End Date Baldo Parmar MD PCP - General 05/11/12 12/11/17 Ami Osullivan PA-C PCP - Backup PCP Internal Medicine 06/16/15 11/24/17 Elizabet Hair MD PCP - General Family Medicine 12/12/17 02/14/18 Elizabet Hair MD PCP - General 02/15/18 08/15/18 Marybeth Chacon MD PCP - General Internal Medicine 08/16/18 09/02/19 Alfreda Costa DO [address] [place] [address] PCP - General Internal Medicine 09/03/19 Leela Nieto NP [address] [place] [address] PCP - Backup PCP Internal Medicine 09/03/19 11/17/22 documented as of this encounter
--- OUTSIDE RECORDS SUMMARY | 2024-06-25 19:23 | XMS_ITS | Encounter Summary ---
Demographics Address [address] [place] [address] Mobile Phone Home Phone Email Address Preferred Language Zimbabwean Marital Status Christianity Affiliation Unknown Race White Ethnic Group Unknown Author Organization [facility] Address [address] [place] [address] Support Name Relationship Address Phone [place] Haas Emergency Contact 2 04[address] [place] [address] Shana Danielle Emergency Contact [address] [place] [address] Care Team Providers Care Production Support Analyst Name Role Phone Marybeth Chacon MD Primary Care Provider Alfreda Costa DO Primary Care Provider [phone] Leela Nieto CINDER PIT CRANE OPERATOR Unavailable Unavailable Encounter Details Date Type Department Care Team (Late st Contact Info) Description 08/23/2018 Orders Only [address] [facility] [address] [place] [address] Elizabet Hair MD [facility] [address] [place] [address] Social History Tobacco Use Types Packs/Day Years [...] as of this encounter Progress Notes * Marybeth Chacon MD - 08/25/2018 10:39 AM EDT Patient notified via my chart. documented in this encounter Plan of Treatment Upcoming Encounters Date Type Department Care Team (Late st Contact Info) Description 06/27/2024 11:00 AM EST Office Visit [facility] 4 [place] [address] Deanne Ibarra PA 4 [place] [address] HFU 08/16/2024 10:25 AM EDT CPE - Comprehensive Physical Exam [facility] 4 [place] [phone] Alfreda Costa DO 4 [place] [address] Physical [facility] 02/27/2025 1:15 PM EST Radiology [address] Mammography 5 [place] [address] documented as of this encounter Procedures * Due to [place] law, this organization might not be sharing negative HIV tests. Procedure Name Priority Date/Time Associated Diagnosis Comments LIPID PANEL WITH REFLEX TO DIRECT LDL Routine 08/23/2018 3:09 PM EDT Pure hypercholesterolemia documented in this encounter Results * Due to [place] law, this organization might not be sharing negative HIV tests. * (ABNORMAL) LIPID PANEL WITH REFLEX TO DIRECT LDL (08/23/2018 3:09 PM EDT) Cholesterol 187 <200 mg/dL [facility] HDL Cholesterol 66 >50 mg/dL [facility] Triglyceride 199(H) <150 mg/dL [facility] LDL Cholesterol 91 mg/dL (calc) [facility] Comment: Reference range: [...] LDL-C. Quentin SS et al. JAMEE. 2013;310(19): 9942-4964 (http://education.Insportant/faq/UPB302) CHOL/HDL Ratio 2.8 <5.0 (calc) [facility] Cholesterol Non-HDL 121 <130 mg/dL (calc) [facility] Comment: For patients with diabetes plus 1 major ASCVD risk factor, treating to a non-HDL-C goal of <100 mg/dL (LDL-C of <70 mg/dL) is considered a therapeutic option. 08/23/2018 3:09 PM EDT 08/24/2018 12:57 AM EDT Narrative Resulting Agency Comment [id number] us Elizabet Hair MD LABORATORY Final Res ult Performing Organization Address City/State/[facility] Co de Phone Number [facility] [address] [place] [address] documented in this encounter Visit Diagnoses Diagnosis Pure hypercholesterolemia documented in this encounter Additional Health Concerns Infection Onset Date Last Indicated Resolved Time COVID-19 Rule-Out 01/05/2021 01/05/2021 01/06/2021 11:16 AM EDT documented as of this encounter Care Teams Production Support Analyst Relationship Specialty Start Date End Date Marybeth Chacon MD PCP - General Internal Medicine 08/16/18 09/02/19 Alfreda Costa DO [address] [place] [address] PCP - General Internal Medicine 09/03/19 Leela Nieto NP [address] [place] [address] PCP - Backup PCP Internal Medicine 09/03/19 11/17/22 documented as of this encounter
--- OUTSIDE RECORDS SUMMARY | 2024-06-25 19:23 | XMS_ITS | Encounter Summary ---
Demographics Address [address] [place] [address] Mobile Phone Home Phone Email Address Preferred Language Panamanian Marital Status Yazidi Affiliation Unknown Race White Ethnic Group Unknown Author Organization [facility] Address [address] [place] [address] Support Name Relationship Address Phone [place] Haas Emergency Contact 2 [address] [place] [address] Shana Danielle Emergency Contact [address] [place] [address] Care Team Providers Care Pens And Pencils Dipper Name Role Phone Baldo Parmar MD Primary Care Provider Unavaila Ami Ansari-Megan Unavailable Unavailab Elizabet Hawthorne MD Primary Care Provider [phone] Elizabet Hair MD Primary Care Provider [phone] Marybeth Chacon MD Primary Care Provider [phone] Alfreda Costa DO Primary Care Provider [phone] Leela Nieto HIGH SCHOOL LIBRARIAN Unavailable Unavailable Encounter Details Date Type Department Care Team ([facility] Contact Info) Description 06/12/2015 Orders Only [facility] Orth[facility] Surgery [address] [place] [address] [address] [place] [address] Ramakrishna Avendano MD Social History [...] Description 06/27/2024 11:00 AM EST Office Visit [facility] 4 [place] [phone] Deanne Ibarra PA 4 [place] [address] HFU 08/16/2024 10:25 AM EDT CPE - Comprehensive Physical Exam [facility] [address] [place] [phone] Alfreda Costa DO 4 [place] [address] Physical - LETTER SENT TO [facility] 02/27/2025 1:15 PM EST Radiology [address] Mammography 5 [place] [address] documented as of this encounter Visit Diagnoses Diagnosis Adhesive capsulitis of left shoulder- Primary Adhesive capsulitis of shoulder documented in this encounter Additional Health Concerns Infection Onset Date Last Indicated Resolved Time COVID-19 Rule-Out 01/05/2021 01/05/2021 01/06/2021 11:16 AM EDT documented as of this encounter Care Teams Pens And Pencils Dipper Relationship Specialty Start Date End Date Baldo Parmar MD PCP - General 05/11/12 12/11/17 Ami Osullivan, TERRY-C PCP - Backup PCP Internal Medicine 06/16/15 11/24/17 Elizabet Hair MD PCP - General Family Medicine 12/12/17 02/14/18 Elizabet Hair MD PCP - General 02/15/18 08/15/18 Marybeth Chacon MD PCP - General Internal Medicine 08/16/18 09/02/19 Alfreda Costa DO [address] [place] [address] PCP - General Internal Medicine 09/03/19 Leela Nieto NP [address] [place] [address] PCP - Backup PCP Internal Medicine 09/03/19 11/17/22 documented as of this encounter
--- OUTSIDE RECORDS SUMMARY | 2024-06-25 19:23 | XMS_ITS | Encounter Summary ---
Demographics Address [address] [place] [address] Mobile Phone Home Phone Email Address [email or web address] Preferred Language Austrian Marital Status Druze Affiliation Unknown Race White Ethnic Group Unknown Author Organization [facility] Address [address] [place] [address] Support Name Relationship Address Phone [place] [facility] Emergency Contact 2 [address] [place] [address] Shana Danielle Emergency Contact [address] [place] [address] Care Team Providers Care Database Analyst Name Role Phone Baldo Parmar MD Primary Care Provider Unavaila Ami Ansari-Megan Unavailable Unavailab Elizabet Hawthorne MD Primary Care Provider [phone] Elizabet Hair MD Primary Care Provider [phone] Marybeth Chacon MD Primary Care Provider [phone] Alfreda Costa DO Primary Care Provider [phone] Leela Nieto SERGEANT MISSILE CREWMAN Unavailable Unavailable Encounter Details Date Type Department Care Team ([facility] Contact Info) Description 09/04/2007 Orders Only [facility] [address] [place] [phone] Baldo Parmar MD Social History Tobacco Use [...] Upcoming Encounters Date Type Department Care Team ([facility] Contact Info) Description 06/27/2024 11:00 AM EST Office Visit [facility] [address] [place] [phone] Deanne Ibarra PA [address] [place] [address] HFU 08/16/2024 10:25 AM EDT CPE - Comprehensive Physical Exam [facility] 4 [place] [phone] Alfreda Costa DO 4 [place] [address] Physical [facility] 02/27/2025 1:15 PM EST Radiology [facility] [address] [place] [phone] documented as of this encounter Procedures * Due to [place] [employer] law, this organization might not be sharing negative HIV tests. Procedure Name Priority Date/Time Associated Diagnosis Comments CARDIAC RISK/LIPID PROFILE I Routine 09/04/2007 HEALTH MAINTENANCE EXAMINATION documented in this encounter Results * Due to [place] [employer] law, this organization might not be sharing negative HIV tests. * (ABNORMAL) CARDIAC RISK/LIPID PROFILE I (09/04/2007) CHOLESTEROL, TOTAL 182 125 - 200 MG/DL [facility] (CLIA# [id number]) TRIGLYCERIDES 45 30 - 149 MG/DL [facility] (CLIA# [id number]) HDL-CHOLESTEROL 81(H) 40 - 77 MG/DL [facility] (CLIA# [id number]) LDL-CHOLESTEROL 92 62 - 130 MG/DL [facility] (CLIA# [id number]) Comment: RISK CATEGORY: ??LDL-CHOLESTEROL GOAL CHD AND CHD RISK EQUIVALENTS: ??<100 MULTIPLE (2+) FACTORS: ??<130 ZERO TO ONE RISK FACTOR: ??<160 CHD RELATIVE RISK RATIO (TOTAL/HDL) 2.25 0.0 - 5.0 [facility] (CLIA# [id number]) Comment:(< .25 X AVERAGE) 09/04/2007 09/04/2007 5:4 6 PM EDT Baldo Parmar MD LABORATORY Final Result [facility] (CLIA# [id number]) [address] [place] [address] documented in this encounter Visit Diagnoses Diagnosis HEALTH MAINTENANCE EXAMINATION Unspecified general medical examination documented in this encounter Additional Health Concerns Infection Onset Date Last Indicated Resolved Time COVID-19 Rule-Out 01/05/2021 01/05/2021 01/06/2021 11:16 AM EDT documented as of this encounter Care Teams Database Analyst Relationship Specialty Start Date End Date Baldo Parmar MD PCP - General 05/11/12 12/11/17 Ami Osullivan PA-C PCP - Backup PCP Internal Medicine 06/16/15 11/24/17 Elizabet Hair MD PCP - General Family Medicine 12/12/17 02/14/18 Elizabet Hair MD PCP - General 02/15/18 08/15/18 Marybeth Chacon MD PCP - General Internal Medicine 08/16/18 09/02/19 Alfreda Costa DO [address] [place] [address] PCP - General Internal Medicine 09/03/19 Leela Nieto NP [address] [place] [address] PCP - Backup PCP Internal Medicine 09/03/19 11/17/22 documented as of this encounter
--- OUTSIDE RECORDS SUMMARY | 2024-06-25 19:23 | XMS_ITS | Encounter Summary ---
Demographics Address [address] [place] [address] Mobile Phone Home Phone Email Address Preferred Language Dominican Marital Status Anabaptism Affiliation Unknown Race White Ethnic Group Unknown Author Organization [facility] Address [address] [place] [address] Support Name Relationship Address Phone [place] Emergency Contact 2 [address] [place] [address] Shana Danielle Emergency Contact [address] [facility] [address] Care Team Providers Care Hat Marker Name Role Phone Baldo Parmar MD Primary Care Provider Unavaila Ami Ansari-Megan Unavailable Unavailab Elizabet Hawthorne MD Primary Care Provider [phone] Elizabet Hair MD Primary Care Provider [phone] Marybeth Chacon MD Primary Care Provider [phone] Alfreda Costa DO Primary Care Provider [phone] Leela Nieto THREADER Unavailable Unavailable Encounter Details Date Type Department Care Team (Late st Contact Info) Description 05/18/2007 Orders Only [facility] [address] [place] [phone] Amirah Deal, ADOLFO [facility] [address] [place] [address] Social History Tobacco Use Types Packs/Day Years [...] Description 06/27/2024 11:00 AM EST Office Visit [facility] [address] [place] [address] Deanne Ibarra PA 4 [place] [address] HFU 08/16/2024 10:25 AM EDT CPE - Comprehensive Physical Exam [facility] 4 [place] [phone] Alfreda Costa DO 4 [place] [address] Physical - LETTER SENT TO [facility] 02/27/2025 1:15 PM EST Radiology [facility]. Mammography [address] [place] [phone] documented as of this encounter Procedures * Due to [place] [employer] law, this organization might not be sharing negative HIV tests. Procedure Name Priority Date/Time Associated Diagnosis Comments VITAMIN B6 Routine 05/18/2007 Abnormal Weight Loss COMP METABOLIC PANEL Routine 05/18/2007 Abnormal Weight Loss CBC 5 PART DIFF Routine 05/18/2007 Abnormal Weight Loss THYROID CASCADE Routine 05/18/2007 Abnormal Weight Loss PREALBUMIN Routine 05/18/2007 Abnormal Weight Loss IRON/TIBC Routine 05/18/2007 Abnormal Weight Loss VITAMIN B12 Routine 05/18/2007 Abnormal Weight Loss URINALYSIS, COMPLETE (DIP & MICRO) Routine 05/18/2007 Abnormal Weight Loss documented in this encounter Results * Due to [place] [employer] law, this organization might not be sharing negative HIV tests. * PREALBUMIN (05/18/2007) PREALBUMIN 30 17 - 34 MG/DL [facility] (CLIA# [id number]) 05/18/2007 05/18/2007 9:2 9 PM EST us Amirah Deal THREADER LABORATORY Final Resul t Performing Organization Address City/[facility]/ZIP Co de Phone Number [facility] (CLIA# [id number]) [address] [place] [address] * THYROID CASCADE (05/18/2007) TSH, THYROTROPIN 0.69 0.40 - 4.50 UIU/ML [facility] (CLIA# [id number]) 05/18/2007 05/18/2007 9:2 9 PM EST us Amirah Deal THREADER LABORATORY Final Resul t Performing Organization Address [facility] Co de Phone Number [facility] (CLIA# [id number]) [address] [place] [address] * IRON/TIBC (05/18/2007) IRON 131 35 - 175 UG/DL [facility] (CLIA# [id number]) TIBC (IRON BINDING CAPACITY) 344 250 - 450 MCG/DL [facility] (CLIA# [id number]) IRON SATURATION % 38 15 - 50 % [facility] (CLIA# [id number]) 05/18/2007 05/18/2007 9:2 9 PM EST us Amirahzehra Barrientosombe THREADER LABORATORY Final Resul t Performing Organization Address City/[facility]/ZIP Co de Phone Number [facility] (CLIA# [id number]) [address] [place] [address] * (ABNORMAL) VITAMIN B6 (05/18/2007) VITAMIN B6 (PYRIDOXINE) 34(H) 2.1 - 21.7 NG/ML [facility] (CLIA# [id number]) Comment: THIS ANALYTE WAS TESTED USING AN EXTRACTION, VANESA METHOD. REFERENCE RANGES DO APPLY. CONVERSION FACTOR: ??NANOGRAMS/ML X 4.046 = NANOMOLES/L 05/18/2007 05/18/2007 9:2 9 PM EST Amirah Deal THREADER LABORATORY Final Resul t Performing Organization Address [facility] Co de Phone Number [facility] (CLIA# [id number]) [address] [place] [address] * VITAMIN B12 (05/18/2007) [facility] VITB12 688 200 - 1100 PG/ML [facility] (CLIA# [id number]) 05/18/2007 05/18/2007 9:2 9 PM EST Amirah Deal THREADER LABORATORY Final Resul t Performing Organization Address [facility] de Phone Number [facility] (CLIA# [id number]) [address] [place] [address] * (ABNORMAL) URINALYSIS, COMPLETE (DIP & MICRO) (05/18/2007) [facility] COLOR (URINE) YELLOW YELLOW [facility] (CLIA# [id number]) APPEARANCE (URINE) CLOUDY(A) CLEAR [facility] (CLIA# [id number]) SPECIFIC GRAVITY 1.011 1.001 - 1.035 [facility] (CLIA# [id number]) PH (URINE) 6.0 5.0 - 8.0 [facility] (CLIA# [id number]) PROTEIN (URINE) NEG NEG [facility] (CLIA# [id number]) GLUCOSE (URINE) NEG NEG [facility] (CLIA# [id number]) Ketones (Urine) NEG NEG [facility] (CLIA# [id number]) BILIRUBIN (URINE) NEG NEG [facility] (CLIA# [id number]) BLOOD (URINE) NEG NEG [facility] (CLIA# [id number]) WBC (URINE) TRACE(A) NEG [facility] (CLIA# [id number]) NITRITE (URINE) NEG NEG FC [facility] (CLIA# [id number]) WBC (URINE) 10-20(A) 0-4/HPF [facility] (CLIA# [id number]) RBC (Urine Sed) 0 0-3/HPF [facility] (CLIA# [id number]) EPITHELIAL CELLS.SQUAMOUS (URINE SED) 6-10(A) 0-5/HPF [facility] (CLIA# [id number]) EPITHELIAL CELLS.TRANSITIO NAL (URINE SED) 0 0-5/HPF [facility] (CLIA# [id number]) EPITHELIAL CELLS.RENAL (URINE SED) 0 0-3/HPF [facility] (CLIA# [id number]) BACTERIA (URINE) NONE SEEN NONE SEEN [facility] (CLIA# [id number]) 05/18/2007 05/18/2007 9:2 9 PM EST Amirah Deal THREADER LAB SAME DAY RESULT Final R esult [facility] (CLIA# [id number]) [address] [place] [address] * CBC 5 PART DIFF (05/18/2007) WHITE BLOOD COUNT 7.6 3.8 - 10.8 THOUS/UL [facility] (CLIA# [id number]) RBC 4.42 3.80 - 5.10 MIL/UL [facility] (CLIA# [id number]) Hemoglobin 13.6 11.7 - 15.5 G/DL [facility] (CLIA# [id number]) HCT (HEMATOCRIT) 39.2 35.0 - 45.0 % [facility] (CLIA# [id number]) MCV 88.7 80.0 - 100.0 FL [facility] (CLIA# [id number]) MCH 30.8 27.0 - 33.0 PG [facility] (CLIA# [id number]) MCHC 34.7 32.0 - 36.0 G/DL [facility] (CLIA# [id number]) BAND % 0 0 - 5 % [facility] (CLIA# [id number]) NEUTROPHIL % 65 48 - 75 % [facility] (CLIA# [id number]) LYMPHOCYTE % 24 17 - 40 % [facility] (CLIA# [id number]) MONOCYTE % 10 0 - 14 % [facility] (CLIA# [id number]) EOSINOPHIL % 1 0 - 5 % [facility] (CLIA# [id number]) BASOPHIL % 0 0 - 3 % [facility] (CLIA# [id number]) ATYPICAL LYMPHOCYTE % 0 0 - 5 % [facility] (CLIA# [id number]) PLATELETS 275 140 - 400 THOUS/UL [facility] (CLIA# [id number]) BANDS # 0 0 - 750 CELLS/MCL [facility] (CLIA# [id number]) NEUTROPHILS # 4940 1500 - 7800 CELLS/MCL [facility] (CLIA# [id number]) LYMPHOCYTES # 1824 850 - 3900 CELLS/MCL [facility] (CLIA# [id number]) MONOCYTES # 760 200 - 950 CELLS/MCL [facility] (CLIA# [id number]) EOSINOPHILS # 76 15 - 550 CELLS/MCL [facility] (CLIA# [id number]) BASOPHILS # 0 0 - 200 CELLS/MCL [facility] (CLIA# [id number]) ATYPICAL LYMPHOCYTES # 0 0 - 200 /UL [facility] (CLIA# [id number]) RDW 13.0 11.0 - 15.0 % [facility] (CLIA# [id number]) MPV 8.5 7.5 - 11.5 FL [facility] (CLIA# [id number]) 05/18/2007 05/18/2007 9:2 9 PM EST us Amirah Deal THREADER LAB SAME DAY RESULT Final R esult [facility] (CLIA# [id number]) [address] [place] [address] * (ABNORMAL) COMP METABOLIC PANEL (05/18/2007) CALCIUM 9.6 8.6 - 10.2 MG/DL [facility] (CLIA# [id number]) BUN 14 7 - 25 MG/DL [facility] (CLIA# [id number]) CREATININE 0.87 0.50-1.30/ 1.20 MG/DL [facility] (CLIA# [id number]) BUN/Creatinine Ratio 16 6 - 25 [facility] (CLIA# [id number]) Total Protein 6.7 6.2 - 8.3 G/DL [facility] (CLIA# [id number]) ALBUMIN 4.3 3.5 - 4.9 G/DL [facility] (CLIA# [id number]) GLOBULIN 2.4 2.2 - 3.9 G/DL [facility] (CLIA# [id number]) ALBUMIN/GLOBULIN RATIO 1.8 1.0 - 2.1 [facility] (CLIA# [id number]) BILIRUBIN TOTAL 0.5 0.2 - 1.2 MG/DL [facility] (CLIA# [id number]) Glucose 100(H) 65 - 99 MG/DL [facility] (CLIA# [id number]) ALKALINE PHOSPHATASE 59 33 - 115 U/L [facility] (CLIA# [id number]) AST (SGOT) 20 10 - 35 U/L [facility] (CLIA# [id number]) ALT (SGPT) 16 6 - 40 U/L [facility] (CLIA# [id number]) SODIUM 141 135 - 146 MMOL/L [facility] (CLIA# [id number]) POTASSIUM 4.2 3.5 - 5.3 MMOL/L [facility] (CLIA# [id number]) CHLORIDE 103 98 - 110 MMOL/L [facility] (CLIA# [id number]) CARBON DIOXIDE 28 21 - 33 MMOL/L [facility] (CLIA# [id number]) 05/18/2007 05/18/2007 9:2 9 PM EST us Amirah Deal THREAD[facility] LABORATORY Final Resul t [facility] (CLIA# [id number]) [address] [place] [address] documented in this encounter Visit Diagnoses Diagnosis Abnormal weight loss Loss of weight documented in this encounter Additional Health Concerns Infection Onset Date Last Indicated Resolved Time COVID-19 Rule-Out 01/05/2021 01/05/2021 01/06/2021 11:16 AM EDT documented as of this encounter Care Teams Hat Marker Relationship Specialty Start Date End Date Baldo Parmar MD PCP - General 05/11/12 12/11/17 Ami Osullivan PA-C PCP - Backup PCP Internal Medicine 06/16/15 11/24/17 Elizabet Hair MD PCP - General Family Medicine 12/12/17 02/14/18 Elizabet Hair MD PCP - General 02/15/18 08/15/18 Marybeth Chacon MD PCP - General Internal Medicine 08/16/18 09/02/19 Alfreda Costa DO [address] [place] [address] PCP - General Internal Medicine 09/03/19 Leela Nieto NP [address] [place] [address] PCP - Backup PCP Internal Medicine 09/03/19 11/17/22 documented as of this encounter
--- OUTSIDE RECORDS SUMMARY | 2024-06-25 19:23 | XMS_ITS | Clinical Summary ---
Demographics Address [address] [place] [address] Home Phone Mobile Phone Email Address Preferred Language Unknown Marital Status Unknown Congregational Affiliation Unknown Race White Ethnic Group Not or Lati no Author Organization [facility] [employer] Address [address] [facility] [address] Care Team Providers Care Therapist Rrt Name Role Phone Unavailable Primary Care Provider Unavailabl e Social History Tobacco Use Types Packs/Day Years Used Date Smoking Tobacco: Never Assessed Comments Unknown Sex and Gender Information Value Date Recorded Sex Assigned at Not on file Legal Sex Female 3:54 AM EST Gender Identity Not on file Sexual Orientation Not on file Plan of Treatment Health Maintenance Due Date Last Done Comments Colorectal Cancer: COLONOSCO PY Screening every 10 yrs (or Modifier) 1962 Depression: Screening Annual ly using PHQ-2/9 in Adults 18 yrs or above (or HM Modifier)([facility]) 1980 Hepatitis C Virus Infection in Adolescents and Adults: Screening (or Modifier) ([facility]) 1980 SDAR Screening Reminder: Vanessa campuzano for all adults ([facility]) 1980 Tobacco Smoking Cessation: i n Adults excluding Women: Behavioral and Pharmacotherapy Interventions ([facility]) 1980 DTaP/Tdap/Td Vaccines ([facility]) (1 - Tdap) 1981 Cervical Cancer Screenin 1-65 yrs of age (or Modifier) 07/09/1983 Cervical Cancer Screening: P ap every 3 yrs pts age 21-65 07/09/1983 Cervical Cancer: Pap Screeni ng with Modifier timing ([facility]) 07/09/1983 Cervical Cancer: hrHPV alone or with cotesting Pap for Pts 30-65yrs screening every 5yrs ([facility]) 07/09/1983 Colorectal Cancer Screening 45 -75 Yrs (or HM Modifier) 07/09/2007 Colorectal Cancer: FLEXIBLE SIGMOIDOSCOPY Screening every 5 yrs 07/09/2007 Colorectal Cancer: Fecal Immunochemical Test (FIT) Annually [facility] 07/09/2007 Colorectal Cancer: High-sens itivity gFOBT Screening Annually [facility] 07/09/2007 Colorectal Cancer: Stool Col oguard Screening every 3 yrs 07/09/2007 Colorectal Cancer:CT Colonog dorys Screening every 5 yrs 07/09/2007 Lipid Screening: Every 5 yrs for Women aged 45+ (or HM Modifier) ([facility]) 2008 Breast Cancer: Screening Vanessa ually age 50-74 yrs (or HM Modifier)([facility]) 2012 Zoster/Shingles Vaccine Seri es Screening: Adults aged 18+ yrs (or HM Modifiers)([facility]) (2 of 2) 06/06/2020 04/11/2020 Flu Vaccination: Yearly for ages 18mos through 64 years (or Modifier)([facility]) 11/24/2023 04/11/2020 COVID-19 Vaccine Screening: Initial Series and Booster Status ([facility]) ( season) 2023 07/26/2020 RSV Vaccines (1 - 1-dose 75+ series) 2037 Pneumococcal Vaccination Scr eening: Pts 0-19 & 19-64 yrs of age ([facility]) Aged Out No longer eligible b ased on patient's age to complete this topic Medical Devices Not on file Insurance 2 04/[address] [place] [address] [facility]
--- OUTSIDE RECORDS SUMMARY | 2024-06-25 19:23 | XMS_ITS | Encounter Summary ---
Demographics Address [address] [place] [address] Mobile Phone Home Phone Email Address Preferred Language Taiwanese Marital Status Spiritism Affiliation Unknown Race White Ethnic Group Unknown Author Organization [facility] Address [address] [place] [address] Support Name Relationship Address Phone [place] Ha[facility] Emergency Contact 2 04/[address] [place] [address] Shana Danielle Emergency Contact [address] [place] [address] Care Team Providers Care Clay Preparation Supervisor Name Role Phone Baldo Parmar MD Primary Care Provider Unavaila Ami Ansari-Megan Unavailable Unavailab Elizabet Hawthorne MD Primary Care Provider [phone] Elizabet Hair MD Primary Care Provider [phone] Marybeth Chacon MD Primary Care Provider [phone] Alfreda Costa DO Primary Care Provider Leela Nieto HEALTH CLAIMS EXAMINER Unavailable Unavailable Encounter Details Date Type Department Care Team ([facility] Contact Info) Description 06/12/2015 Orders Only [facility] Orthopedic Surgery [address] [place] [address] [address] [place] [address] Ramakrishna Avendano MD Social History [...] Description 06/27/2024 11:00 AM EST Office Visit [facility] [address] [place] [phone] Deanne Ibarra PA [address] [place] [address] HFU 08/16/2024 10:25 AM EDT CPE - Comprehensive Physical Exam [facility] [address] [place] [phone] Alfreda Costa DO [address] [place] [address] Physical - LETTER SENT TO [facility] 02/27/2025 1:15 PM EST Radiology [facility] [address] [place] [address] documented as of this encounter Visit Diagnoses Diagnosis Adhesive capsulitis of left shoulder- Primary Adhesive capsulitis of shoulder documented in this encounter Additional Health Concerns Infection Onset Date Last Indicated Resolved Time COVID-19 Rule-Out 01/05/2021 01/05/2021 01/06/2021 11:16 AM EDT documented as of this encounter Care Teams Clay Preparation Supervisor Relationship Specialty Start Date End Date Baldo Parmar MD PCP - General 05/11/12 12/11/17 Ami Osullivan, TERRY-C PCP - Backup PCP Internal Medicine 06/16/15 11/24/17 Elizabet Hair MD PCP - General Family Medicine 12/12/17 02/14/18 Elizabet Hair MD PCP - General 02/15/18 08/15/18 Marybeth Chacon MD PCP - General Internal Medicine 08/16/18 09/02/19 Alfreda Costa DO [address] [place] [address] PCP - General Internal Medicine 09/03/19 Leela Nieto NP [address] [place] [address] PCP - Backup PCP Internal Medicine 09/03/19 11/17/22 documented as of this encounter
--- OUTSIDE RECORDS SUMMARY | 2024-06-25 19:23 | XMS_ITS | Encounter Summary ---
Demographics Address [address] [place] [address] Mobile Phone Home Phone Email Address Preferred Language Finnish Marital Status Anglican Affiliation Unknown Race White Ethnic Group Unknown Author Organization [facility] Address [address] [place] [address] Support Name Relationship Address Phone [place] [facility] Emergency Contact 2 04/[address] [place] [address] Shana Danielle Emergency Contact [address] [place] [address] Care Team Providers Care Gasoline Pump Mechanic Name Role Phone Baldo Parmar MD Primary Care Provider Unavaila Ami Ansari-Megan Unavailable Unavailab Elizabet Hawthorne MD Primary Care Provider [phone] Elizabet Hair MD Primary Care Provider [phone] Marybeth Chacon MD Primary Care Provider [phone] Alfreda Costa DO Primary Care Provider [phone] Leela Nieto SUPERVISOR LENS GENERATING Unavailable Unavailable Encounter Details Date Type Department Care Team ([facility] Contact Info) Description 07/24/2015 Orders Only [facility] Orthopedic Surgery [address] [facility] [address] [place] [address] Ramakrishna Avendano MD Social History [...] Description 06/27/2024 11:00 AM EST Office Visit [facility] 4 [place] [phone] Deanne Ibarra PA [address] [place] [address] HFU 08/16/2024 10:25 AM EDT CPE - Comprehensive Physical Exam [facility] [address] [place] [phone] Alfreda Costa DO [address] [place] [address] Physical - [facility] 02/27/2025 1:15 PM EST Radiology [facility] 5 [place] [address] documented as of this encounter Visit Diagnoses Diagnosis Adhesive capsulitis of left shoulder- Primary Adhesive capsulitis of shoulder documented in this encounter Additional Health Concerns Infection Onset Date Last Indicated Resolved Time COVID-19 Rule-Out 01/05/2021 01/05/2021 01/06/2021 11:16 AM EDT documented as of this encounter Care Teams Gasoline Pump Mechanic Relationship Specialty Start Date End Date Baldo Parmar MD PCP - General 05/11/12 12/11/17 Ami Osullivan, TERRY-C PCP - Backup PCP Internal Medicine 06/16/15 11/24/17 Elizabet Hair MD PCP - General Family Medicine 12/12/17 02/14/18 Elizabet Hair MD PCP - General 02/15/18 08/15/18 Marybeth Chacon MD PCP - General Internal Medicine 08/16/18 09/02/19 Alfreda Costa DO [address] [place] [address] PCP - General Internal Medicine 09/03/19 Leela Nieto NP [address] [place] [address] PCP - Backup PCP Internal Medicine 09/03/19 11/17/22 documented as of this encounter
--- OUTSIDE RECORDS SUMMARY | 2024-06-25 19:23 | XMS_ITS | Encounter Summary ---
Demographics Address [address] [place] [address] Mobile Phone Home Phone Email Address Preferred Language Slovak Marital Status Adventist Affiliation Unknown Race White Ethnic Group Unknown Author Organization [facility] Address [address] [place] [address] Support Name Relationship Address Phone [place] Haas Emergency Contact [address] [place] [address] Shana Danielle Emergency Contact [address] [place] [address] Care Team Providers Care Superior Court Judge Name Role Phone Baldo Parmar MD Primary Care Provider Unavaila ble Ami Osullivan-C Unavailable Unavailab Elizabet Hawthorne MD Primary Care Provider [phone] Elizabet Hair MD Primary Care Provider [phone] Marybeth Chacon MD Primary Care Provider [phone] Alfreda Costa DO Primary Care Provider [phone] Leela Nieto DOCUMENT ADVISOR Unavailable Unavailable Encounter Details Date Type Department Care Team (Late Contact Info) Description 09/04/2007 Orders Only [facility] [address] [place] [phone] Ami Osullivan, PA-C Social History Tobacco Use [...] Description 06/27/2024 11:00 AM EST Office [facility] [address] [facility] [phone] Deanne Ibarra PA 4 [place] [address] HFU 08/16/2024 10:25 AM EDT CPE - Comprehensive Physical Exam [facility] [address] [place] [phone] Alfreda Costa DO [address] [place] [address] Physical - LETTER SENT TO [facility] 02/27/2025 1:15 PM EST Radiology [facility]. Mammography [address] [place] [phone] documented as of this encounter Procedures * Due to [place] [employer] law, this organization might not be sharing negative HIV tests. Procedure Name Priority Date/Time Associated Diagnosis Comments CARDIAC RISK/LIPID PROFILE I Routine 09/04/2007 BASIC METABOLIC PANEL Routine 09/04/2007 FATIGUE LYME DISEASE PANEL W/WB REFLEX Routine 09/04/2007 FATIGUE RPR Routine 09/04/2007 FATIGUE CBC 5 PART DIFF Routine 09/04/2007 FATIGUE TSH, THYROTROPIN Routine 09/04/2007 FATIGUE documented in this encounter Results * Due to [place] [employer] law, this organization might not be sharing negative HIV tests. * (ABNORMAL) CARDIAC RISK/LIPID PROFILE I (09/04/2007) CHOLESTEROL, TOTAL 182 125 - 200 MG/DL [facility] (CLIA# [id number]) TRIGLYCERIDES 45 30 - 149 MG/DL [facility] (CLIA# [id number]) HDL-CHOLESTEROL 81(H) 40 - 77 MG/DL [facility] (CLIA# [id number]) LDL-CHOLESTEROL 92 62 - 130 MG/DL [facility] (CLIA# [id number]) Comment: RISK CATEGORY: ??LDL-CHOLESTEROL GOAL CHD AND CHD RISK EQUIVALENTS: ??<100 MULTIPLE (2+) FACTORS: ??<130 ZERO TO ONE RISK FACTOR: ??<160 CHD RELATIVE RISK RATIO (TOTAL/HDL) 2.25 0.0 - 5.0 [facility] (CLIA# [id number]) Comment:(< .25 X AVERAGE) 09/04/2007 09/04/2007 5:4 6 PM EDT IgnitAdhelene Guzman Shi PA-C LABORATORY Final Resu lt [facility] (CLIA# [id number]) [address] [place] [address] * RPR (09/04/2007) RPR NON-REACTIV E NON-REACTI VE [facility] (CLIA# [id number]) 09/04/2007 09/04/2007 5:4 6 PM EDT WriteReader ApS C Shi PA-C LABORATORY Final Resu lt Performing Organization Address City/[facility]/ZIP Co de Phone Number [facility] (CLIA# [id number]) [address] [place] [address] * LYME DISEASE PANEL W/WB REFLEX (09/04/2007) LYME (B. BURGDORFERI) AB SCREEN NEGATIVE [facility] (CLIA# [id number]) Comment: < OR = 0.90 ?? NEGATIVE 0.91 - 1.09 ?? EQUIVOCAL > OR = 1.10 ?? POSTIVE LYME EIA SCREEN IS REFLEXED TO WESTERN BLOT IF POSITIVE. 09/04/2007 09/04/2007 5:4 6 PM EDT WriteReader ApS C Shi PA-C LABORATORY Final Resu lt [facility] (CLIA# [id number]) [address] [place] [address] * TSH (THYROTROPIN) (09/04/2007) Pathologist [facility] TSH, THYROTROPIN 0.56 0.40 - 4.50 UIU/ML [facility] (CLIA# [id number]) 09/04/2007 09/04/2007 5:4 6 PM EDT [employer] C Shi PA-C LABORATORY Final Resu lt Performing Organization Address [facility]/ZIP Co de Phone Number [facility] (CLIA# [id number]) [address] [place] [address] * CBC 5 PART DIFF (09/04/2007) Pathologist [facility] WHITE BLOOD COUNT 6.1 3.8 - 10.8 THOUS/UL [facility] (CLIA# [id number]) RBC 4.55 3.80 - 5.10 MIL/UL [facility] (CLIA# [id number]) Hemoglobin 13.6 11.7 - 15.5 G/DL [facility] (CLIA# [id number]) HCT (HEMATOCRIT) 40.1 35.0 - 45.0 % [facility] (CLIA# [id number]) MCV 88.1 80.0 - 100.0 FL [facility] (CLIA# [id number]) MCH 29.9 27.0 - 33.0 PG [facility] (CLIA# [id number]) MCHC 34.0 32.0 - 36.0 G/DL [facility] (CLIA# [id number]) BAND % 0 0 - 5 % [facility] (CLIA# [id number]) NEUTROPHIL % 60 48 - 75 % [facility] (CLIA# [id number]) LYMPHOCYTE % 29 17 - 40 % [facility] (CLIA# [id number]) MONOCYTE % 10 0 - 14 % [facility] (CLIA# [id number]) EOSINOPHIL % 1 0 - 5 % [facility] (CLIA# [id number]) BASOPHIL % 0 0 - 3 % [facility] (CLIA# [id number]) ATYPICAL LYMPHOCYTE % 0 0 - 5 % [facility] (CLIA# [id number]) PLATELETS 287 140 - 400 THOUS/UL [facility] (CLIA# [id number]) BANDS # 0 0 - 750 CELLS/MCL [facility] (CLIA# [id number]) NEUTROPHILS # 3660 1500 - 7800 CELLS/MCL [facility] (CLIA# [id number]) LYMPHOCYTES # 1769 850 - 3900 CELLS/MCL [facility] (CLIA# [id number]) MONOCYTES # 610 200 - 950 CELLS/MCL [facility] (CLIA# [id number]) EOSINOPHILS # 61 15 - 550 CELLS/MCL [facility] (CLIA# [id number]) BASOPHILS # 0 0 - 200 CELLS/MCL [facility] (CLIA# [id number]) ATYPICAL LYMPHOCYTES # 0 0 - 200 CELLS/MCL [facility] (CLIA# [id number]) RDW 13.7 11.0 - 15.0 % [facility] (CLIA# [id number]) MPV 8.8 7.5 - 11.5 FL [facility] (CLIA# [id number]) 09/04/2007 09/04/2007 5:4 6 PM EDT us Ami Osullivan PA-C LAB SAME DAY RESULT Final Result [facility] (CLIA# [id number]) [address] [place] [address] * BASIC METABOLIC PANEL (09/04/2007) CALCIUM 9.9 8.6 - 10.2 MG/DL [facility] (CLIA# [id number]) BUN 16 7 - 25 MG/DL [facility] (CLIA# [id number]) CREATININE 0.77 0.50-1.30/ 1.20 MG/DL [facility] (CLIA# [id number]) Glucose 91 65 - 99 MG/DL [facility] (CLIA# [id number]) SODIUM 141 135 - 146 MMOL/L [facility] (CLIA# [id number]) POTASSIUM 4.1 3.5 - 5.3 MMOL/L [facility] (CLIA# [id number]) CHLORIDE 103 98 - 110 MMOL/L [facility] (CLIA# [id number]) CARBON DIOXIDE 26 21 - 33 MMOL/L [facility] (CLIA# [id number]) 09/04/2007 09/04/2007 5:4 6 PM EDT Ami Osullivan PA-C LAB SAME DAY RESULT Final Result [facility] (CLIA# [id number]) [address] [place] [address] documented in this encounter Visit Diagnoses Diagnosis FATIGUE Other malaise and fatigue documented in this encounter Additional Health Concerns Infection Onset Date Last Indicated Resolved Time COVID-19 Rule-Out 01/05/2021 01/05/2021 01/06/2021 11:16 AM EDT documented as of this encounter Care Teams Superior Court Judge Relationship Specialty Start Date End Date Baldo Parmar MD PCP - General 05/11/12 12/11/17 Ami Osullivan PA-C PCP - Backup PCP Internal Medicine 06/16/15 11/24/17 Elizabet Hair MD PCP - General Family Medicine 12/12/17 02/14/18 Elizabet Hair MD PCP - General 02/15/18 08/15/18 Marybeth Chacon MD PCP - General Internal Medicine 08/16/18 09/02/19 Alfreda Costa DO [address] [place] [address] PCP - General Internal Medicine 09/03/19 Leela Nieto NP [address] [place] [address] PCP - Backup PCP Internal Medicine 09/03/19 11/17/22 documented as of this encounter
--- OUTSIDE RECORDS SUMMARY | 2024-06-25 19:23 | XMS_ITS | Encounter Summary ---
Demographics Address [address] [place] [address] Mobile Phone Home Phone Email Address Preferred Language Montserratian Marital Status Alevism Affiliation Unknown Race White Ethnic Group Unknown Author Organization [facility] Address [address] [place] [address] Support Name Relationship Address Phone [place] Haas Emergency Contact 2 [address] [place] [address] Shana Danielle Emergency Contact [address] [place] [address] Care Team Providers Care Video Network Engineer Name Role Phone Baldo Parmar MD Primary Care Provider Unavaila Ami Ansari-C Unavailable Unavailab Elizabet Hawthorne MD Primary Care Provider [phone] Elizabet Hair MD Primary Care Provider [phone] Marybeth Chacon MD Primary Care Provider [phone] Alfreda Costa DO Primary Care Provider [phone] Leela Nieto CUSTOM TAILOR APPRENTICE Unavailable Unavailable Encounter Details Date Type Department Care Team ([facility] Contact Info) Description 07/05/2008 Orders Only [facility] [address] [place] [phone] Davida James PA Social History Tobacco Use Types Packs/Day [...] Upcoming Encounters Date Type Department Care Team ([facility] Contact Info) Description 06/27/2024 11:00 AM EST Office Visit [facility] [address] [place] [phone] Deanne Ibarra PA [address] [place] [address] HFU 08/16/2024 10:25 AM EDT CPE - Comprehensive Physical Exam [facility] [address] [place] [phone] Alfreda Costa DO [address] [place] [address] Physical - [facility] 02/27/2025 1:15 PM EST Radiology [facility] [address] [place] [phone] documented as of this encounter Procedures * Due to [employer] [place] law, this organization might not be sharing negative HIV tests. Procedure Name Priority Date/Time Associated Diagnosis Comments CULTURE, THROAT Routine 07/05/2008 Rash and Nonspecific Skin Eruption documented in this encounter Results * Due to [place] [employer] law, this organization might not be sharing negative HIV tests. * CULTURE, THROAT (07/05/2008) Result(s) SEE TEXT Comment: SOURCE: THROAT NORMAL OROPHARYNGEAL MADAY 07/05/2008 07/05/2008 8:5 1 PM EDT [facility] Final Result documented in this encounter Visit Diagnoses Diagnosis Rash and nonspecific skin eruption Rash and other nonspecific skin eruption documented in this encounter Additional Health Concerns Infection Onset Date Last Indicated Resolved Time COVID-19 Rule-Out 01/05/2021 01/05/2021 01/06/2021 11:16 AM EDT documented as of this encounter Care Teams Video Network Engineer Relationship Specialty Start Date End Date Baldo Parmar MD PCP - General 05/11/12 12/11/17 Ami Osullivan PA-C PCP - Backup PCP Internal Medicine 06/16/15 11/24/17 Elizabet Hair MD PCP - General Family Medicine 12/12/17 02/14/18 Elizabet Hair MD PCP - General 02/15/18 08/15/18 Marybeth Chacon MD PCP - General Internal Medicine 08/16/18 09/02/19 Alfreda Costa DO [address] [place] [address] PCP - General Internal Medicine 09/03/19 Leela Nieto NP 4 [place] [address] PCP - Backup PCP Internal Medicine 09/03/19 11/17/22 documented as of this encounter
--- OUTSIDE RECORDS SUMMARY | 2024-06-25 19:23 | XMS_ITS | Encounter Summary ---
Demographics Address [address] [place] [address] Mobile Phone Home Phone Email Address [email or web address] Preferred Language Mexican Marital Status Islam Affiliation Unknown Race White Ethnic Group Unknown Author Organization [facility] Address [address] [place] [address] Support Name Relationship Address Phone [place] Haas Emergency Contact 2 [address] [place] [address] Shana Danielle Emergency Contact [address] [place] [address] Care Team Providers Care Capacity Planning Engineer Name Role Phone Baldo Parmar MD Primary Care Provider Unavaila Ami Ansari-Megan Unavailable Unavailab Elizabet Hawthorne MD Primary Care Provider [phone] Elizabet Hair MD Primary Care Provider [phone] Marybeth Chacon MD Primary Care Provider [phone] Alfreda Costa DO Primary Care Provider [phone] Leela Nieto HOUSEKEEPING/LAUNDRY SUPERVISOR Unavailable Unavailable Encounter Details Date Type Department Care Team ([facility] Contact Info) Description 05/29/2015 Orders Only [facility] Orthopedic Surgery [address] [facility] [address] [place] [address] Ramakrishna Avendano MD Social History [...] Description 06/27/2024 11:00 AM EST Office Visit [facility] [address] [place] [phone] Deanne Ibarra PA [address] [place] [address] HFU 08/16/2024 10:25 AM EDT CPE - Comprehensive Physical Exam [facility] [address] [place] [phone] Alfreda Costa DO [address] [place] [address] Physical - LETTER SENT TO [facility] 02/27/2025 1:15 PM EST Radiology [address] Mammography [address] [place] [address] documented as of this encounter Visit Diagnoses Diagnosis Adhesive capsulitis of left shoulder- Primary Adhesive capsulitis of shoulder documented in this encounter Additional Health Concerns Infection Onset Date Last Indicated Resolved Time COVID-19 Rule-Out 01/05/2021 01/05/2021 01/06/2021 11:16 AM EDT documented as of this encounter Care Teams Capacity Planning Engineer Relationship Specialty Start Date End Date Baldo Parmar MD PCP - General 05/11/12 12/11/17 Ami Osullivan, TERRY-C PCP - Backup PCP Internal Medicine 06/16/15 11/24/17 Elizabet Hair MD PCP - General Family Medicine 12/12/17 02/14/18 Elizabet Hair MD PCP - General 02/15/18 08/15/18 Marybeth Chacon MD PCP - General Internal Medicine 08/16/18 09/02/19 Alfreda Costa DO [address] [place] [address] PCP - General Internal Medicine 09/03/19 Leela Nieto NP [address] [place] [address] PCP - Backup PCP Internal Medicine 09/03/19 11/17/22 documented as of this encounter
--- OUTSIDE RECORDS SUMMARY | 2024-06-25 19:23 | XMS_ITS | Encounter Summary ---
Demographics Address [address] [place] [address] Mobile Phone Home Phone Email Address [email or web address] Preferred Language Jamaican Marital Status Mosque Affiliation Unknown Race White Ethnic Group Unknown Author Organization [facility] Address [address] [place] [address] Support Name Relationship Address Phone [place] Haas Emergency Contact 2 [address] [place] [address] Shana Danielle Emergency Contact [address] [place] [address] Care Team Providers Care Business Solution Analyst Name Role Phone Marybeth Chacon MD Primary Care Provider Alfreda Costa DO Primary Care Provider Leela Nieto COIN COLLECTOR Unavailable Unavailable Reason for Visit * Reason Comments No Show Encounter Details Date Type Department Care Team (Late st Contact Info) Description 10/12/2018 Telephone [facility] [address] [place] [phone] Yovany Eid MD No Show Social History Tobacco Use Types Packs/Day Years [...] encounter Miscellaneous Notes * Telephone Encounter - Joi Lackey - 10/12/2018 12:10 PM EDT This patient no showed her colonoscopy appointment today 10/12/[address] Eid. She has no showedmultiple appointments in the past and per Dr. Eid she will not be rescheduled. documented in this encounter Plan of Treatment Upcoming Encounters Date Type Department Care Team (Late st Contact Info) Description 06/27/2024 11:00 AM EST Office Visit [facility] [address] [place] [phone] Deanne Ibarra PA [address] [place] [address] HFU 08/16/2024 10:25 AM EDT CPE - Comprehensive Physical Exam [facility] [address] [place] [phone] Alfreda Costa DO [address] [place] [address] Physical - LETTER SENT TO [facility] 02/27/2025 1:15 PM EST Radiology [facility] [address] [place] [address] documented as of this encounter Visit Diagnoses Not on filedocumented in this encounter Additional Health Concerns Infection Onset Date Last Indicated Resolved Time COVID-19 Rule-Out 01/05/2021 01/05/2021 01/06/2021 11:16 AM EDT documented as of this encounter Care Teams Business Solution Analyst Relationship Specialty Start Date End Date Marybeth Chacon MD PCP - General Internal Medicine 08/16/18 09/02/19 Alfreda Costa DO [address] [place] [address] PCP - General Internal Medicine 09/03/19 Leela Nieto NP [address] [place] [address] PCP - Backup PCP Internal Medicine 09/03/19 11/17/22 documented as of this encounter
--- OUTSIDE RECORDS SUMMARY | 2024-06-25 19:23 | XMS_ITS | Encounter Summary ---
Demographics Address [address] [place] [address] Mobile Phone Home Phone Email Address [email or web address] Preferred Language Micronesian Marital Status Hinduism Affiliation Unknown Race White Ethnic Group Unknown Author Organization [facility] Address [address] [place] [address] Support Name Relationship Address Phone [place] Ha[facility] Emergency Contact 2 [address] [place] [address] Shana Danielle Emergency Contact [address] [place] [address] Care Team Providers Care Degreaser Operator Name Role Phone Baldo Parmar MD Primary Care Provider Unavaila Ami Ansari-Megan Unavailable Unavailab Elizabet Hawthorne MD Primary Care Provider [phone] Elizabet Hair MD Primary Care Provider [phone] Marybeth Chacon MD Primary Care Provider [phone] Alfreda Costa DO Primary Care Provider [phone] Leela Nieto AIRCRAFT ENGINE CYLINDER MECHANIC Unavailable Unavailable Encounter Details Date Type Department Care Team (Late st Contact Info) Description 10/03/2014 Orders Only [facility] [address] [place] [phone] Baldo Parmar MD Social History Tobacco Use [...] encounter Progress Notes * Alfreda Regan - 10/07/2014 5:03 PM EDTQuick Note: Letter sent * Nichole Delatorre - 10/07/2014 3:46 PM EDTQuick Note: Letter normal urine test , no infection * Baldo Parmar - 10/07/2014 8:38 AM EDTQuick Note: The results of this test are normal/ stable and/or acceptable notify patient - there is no need to make any changes in approach - as always if the patient has any questions/problems please let me know - * Roxana Fowler MA - 10/04/2014 9:19 AM EDTQuick Note: Letter sent * Roxana Fowler MA - 10/04/2014 9:18 AM EDTQuick Note: Letter sent * Nancy Marie - 10/04/2014 8:59 AM EDTQuick Note: Please send letter, The results of this test are normal/ stable * Baldo Parmar - 10/04/2014 7:49 AM EDTQuick Note: The results of this [...] Description 06/27/2024 11:00 AM EST Office Visit [facility] [address] [place] [phone] Deanne Ibarra PA [address] [place] [address] U 08/16/2024 10:25 AM EDT CPE - Comprehensive Physical Exam [facility] [address] [place] [phone] Alfreda Costa DO [address] [place] [address] Physical - LETTER SENT TO [facility] 02/27/2025 1:15 PM EST Radiology [facility]. Mammography [address] [place] [address] documented as of this encounter Procedures * Due to [facility] law, this organization might not be sharing negative HIV tests. Procedure Name Priority Date/Time Associated Diagnosis Comments URINALYSIS, DIP ONLY STAT (All results called to provider) 10/03/2014 1:10 PM EDT Urinary frequency CULTURE, URINE, ROUTINE Routine 10/03/2014 1:06 PM EDT Urinary frequency URINALYSIS, MICROSCOPIC Routine 10/03/2014 1:06 PM EDT Urinary frequency LIPID PANEL WITH REFLEX TO DIRECT LDL Routine 10/03/2014 1:06 PM EDT Elevated cholesterol documented in this encounter Results * Due to [place] law, this organization might not be sharing negative HIV tests. * (ABNORMAL) URINALYSIS, DIP ONLY ( SITE STAT ONLY) (10/03/2014 1:10 PM EDT) COLOR (URINE) STRAW [facility] (CLIA# [id number]) APPEARANCE (URINE) CLEAR [facility] (CLIA# [id number]) SPECIFIC GRAVITY 1.005 1.001 - 1.035 [facility] (CLIA# [id number]) PH (URINE) 7.0 5.0 - 8.0 [facility] (CLIA# [id number]) PROTEIN (URINE) NEGATIVE Neg [facility] (CLIA# [id number]) GLUCOSE (URINE) NEGATIVE Neg [facility] (CLIA# [id number]) Ketones (Urine) NEGATIVE Neg [facility] (CLIA# [id number]) BILIRUBIN (URINE) NEGATIVE Neg [facility] (CLIA# [id number]) BLOOD (URINE) NEGATIVE Neg [facility] (CLIA# [id number]) WBC (URINE) 1+(A) Neg [facility] (CLIA# [id number]) NITRITE (URINE) NEGATIVE Neg [facility] (CLIA# [id number]) Urine specimen obtained by clean catch procedure (specimen) 10/03/2014 1:10 PM EDT Narrative [facility] (CLIA# [id number]) - 10/03/2014 1:16 PM EDT Micro and culture already ordered per provider. us Baldo Parmar MD LAB SAME DAY RESULT Final Resul t [facility] (CLIA# [id number]) [address] [place] [address] * CULTURE, URINE, ROUTINE (10/03/2014 1:06 PM EDT) Bacteria culture (Urine) SEE NOTE [facility] Comment: {CULTURE, URINE, ROUTINE {[id number]) ??CULTURE, URINE, ROUTINE ??MICRO NUMBER: ?[id number] ??TEST STATUS: ? FINAL ??SPECIMEN SOURCE: ?? URINE ??SPECIMEN QUALITY: ??ADEQUATE ??RESULT: ?Multiple organisms present, each less than 10,000 ? CFU/mL. These organisms, commonly found on ? external and internal genitalia, are considered ? to be colonizers. No further testing performed. 10/03/2014 1:06 PM EDT 10/03/2014 10:22 PM EDT Narrative Resulting Agency Comment [id number] Baldo Parmar MD LABORATORY Final Result Performing Organization Address [facility] de Phone Number [facility] [address] [place] [address] * URINALYSIS, MICROSCOPIC (10/03/2014 1:06 PM EDT) WBC (Urine) 0-5 < OR = 5 /HPF [facility] Comment:{WBC {[id number]) RBC (Urine Sed) NONE SEEN < OR = 2 /HPF [facility] Comment:{RBC {[id number]) Epithelial cells.squamous (Urine sed) 0-5 < OR = 5 /HPF [facility] Comment:{SQUAMOUS EPITHELIAL CELLS {[id number]) Bacteria (Urine) NONE SEEN NONE SEEN /HPF [facility] Comment:{BACTERIA {[id number]) Hyaline casts (Urine sed) NONE SEEN NONE SEEN /LPF [facility] Comment:{HYALINE CAST {[id number]) 10/03/2014 1:06 PM EDT 10/03/2014 10:22 PM EDT Narrative Resulting Agency Comment [id number] Baldo Parmar MD LAB SAME DAY RESULT Final Resul t Performing Organization Address [facility] de Phone Number [facility] [address] [place] [address] * (ABNORMAL) LIPID PANEL WITH REFLEX TO DIRECT LDL (10/03/2014 1:06 PM EDT) Cholesterol 229(H) 125 - 200 mg/dL [facility] Comment:{CHOLESTEROL, TOTAL {[id number]) HDL Cholesterol 69 > OR = 46 mg/dL [facility] Comment:{HDL CHOLESTEROL {[id number]) Triglyceride 153(H) <150 mg/dL [facility] Comment:{TRIGLYCERIDES {[id number]) LDL Cholesterol 129 <130 mg/dL (calc) [facility] Comment: {LDL-CHOLESTEROL {[id number]) Desirable range <100 mg/dL for patients with CHD or diabetes and <70 mg/dL for diabetic patients with known heart disease. CHOL/HDL Ratio 3.3 < OR = 5.0 (calc) [facility] Comment:{CHOL/HDLC RATIO {[id number]) Cholesterol Non-HDL 160(H) mg/dL (calc) [facility] Comment: {NON HDL CHOLESTEROL {[id number]) Target for non-HDL cholesterol is 30 mg/dL higher than LDL cholesterol target. 10/03/2014 1:06 PM EDT 10/03/2014 10:22 PM EDT Narrative Resulting Agency Comment [id number] Baldo Parmar MD LABORATORY Final Result Performing Organization Address City/State/[facility] Co de Phone Number [facility] [address] [place] [phone] documented in this encounter Visit Diagnoses Diagnosis Elevated cholesterol Pure hypercholesterolemia Urinary frequency documented in this encounter Additional Health Concerns Infection Onset Date Last Indicated Resolved Time COVID-19 Rule-Out 01/05/2021 01/05/2021 01/06/2021 11:16 AM EDT documented as of this encounter Care Teams Degreaser Operator Relationship Specialty Start Date End Date Baldo Parmar MD PCP - General 05/11/12 12/11/17 Ami Osullivan PA-C PCP - Backup PCP Internal Medicine 06/16/15 11/24/17 Elizabet Hair MD PCP - General Family Medicine 12/12/17 02/14/18 Elizabet Hair MD PCP - General 02/15/18 08/15/18 Marybeth Chacon MD PCP - General Internal Medicine 08/16/18 09/02/19 Alfreda Costa DO [address] [place] [address] PCP - General Internal Medicine 09/03/19 Leela Nieto NP [address] [place] [address] PCP - Backup PCP Internal Medicine 09/03/19 11/17/22 documented as of this encounter
--- OUTSIDE RECORDS SUMMARY | 2024-06-25 19:23 | XMS_ITS | Encounter Summary ---
Demographics Address [address] [place] [address] Mobile Phone Home Phone Email Address Preferred Language Malagasy Marital Status Presybeterian Affiliation Unknown Race White Ethnic Group Unknown Author Organization [facility] Address [address] [place] [address] Support Name Relationship Address Phone [place] Ha[place] Emergency Contact [address] [place] [address] Shana Danielle Emergency Contact [address] [facility] [place] [address] Care Team Providers Care Flatwork Assembler Name Role Phone Baldo Parmar MD Primary Care Provider Unavaila Ami Ansari-Megan Unavailable Unavailab Elizabet Hawthorne MD Primary Care Provider [phone] Elizabet Hair MD Primary Care Provider [phone] Marybeth Chacon MD Primary Care Provider [phone] Alfreda Costa DO Primary Care Provider [phone] Leela Nieto COORDINATOR [employer] Unavailable Unavailable Encounter Details Date Type Department Care Team ([facility] Contact Info) Description 02/20/2010 Orders Only [facility] [address] [place] [phone] Baldo Parmar MD Social History Tobacco Use [...] Upcoming Encounters Date Type Department Care Team ([facility] Contact Info) Description 06/27/2024 11:00 AM EST Office Visit [facility] [address] [place] [phone] Deanne Ibarra PA [address] [place] [address] HFU 08/16/2024 10:25 AM EDT CPE - Comprehensive Physical Exam [facility] [address] [place] [phone] Alfreda Costa DO [address] [place] [address] Physical - LETTER SENT TO [facility] 02/27/2025 1:15 PM EST Radiology [facility] [address] [place] [phone] documented as of this encounter Visit Diagnoses Not on filedocumented in this encounter Additional Health Concerns Infection Onset Date Last Indicated Resolved Time COVID-19 Rule-Out 01/05/2021 01/05/2021 01/06/2021 11:16 AM EDT documented as of this encounter Care Teams Flatwork Assembler Relationship Specialty Start Date End Date Baldo Parmar MD PCP - General 05/11/12 12/11/17 Ami Osullivan, JARAD PCP - Backup PCP Internal Medicine 06/16/15 11/24/17 Elizabet Hair MD PCP - General Family Medicine 12/12/17 02/14/18 Elizabet Hair MD PCP - General 02/15/18 08/15/18 Marybeth Chacon MD PCP - General Internal Medicine 08/16/18 09/02/19 Alfreda Costa DO [address] [place] [address] PCP - General Internal Medicine 09/03/19 Leela Nieto NP [address] [place] [address] PCP - Backup PCP Internal Medicine 09/03/19 11/17/22 documented as of this encounter
--- OUTSIDE RECORDS SUMMARY | 2024-06-25 19:23 | XMS_ITS | Encounter Summary ---
Demographics Address [address] [place] [address] Mobile Phone Home Phone Email Address Preferred Language Kosovan Marital Status Jain Affiliation Unknown Race White Ethnic Group Unknown Author Organization [facility] Address [address] [place] [address] Support Name Relationship Address Phone [place] Haas Emergency Contact [address] [place] [address] Shana Danielle Emergency Contact [address] [place] [address] Care Team Providers Care Capability Lead Name Role Phone Baldo Parmar MD Primary Care Provider Unavaila ble Ami Osullivan-C Unavailable Unavailab Elizabet Hawthorne MD Primary Care Provider [phone] Elizabet Hair MD Primary Care Provider [phone] Marybeth Chacon MD Primary Care Provider [phone] Alfreda Costa DO Primary Care Provider Leela Nieto COOK ROAST Unavailable Unavailable Encounter Details Date Type Department Care Team (Late Contact Info) Description 09/07/2007 Orders Only [facility] [address] [place] [phone] Ami Osullivan, PA-C Social History Tobacco Use [...] EST Office Visit [facility] [address] [place] [phone] Deanne Ibarra PA [address] [place] [address] HFU 08/16/2024 10:25 AM EDT CPE - Comprehensive Physical Exam [facility] [address] [place] [phone] Alfreda Costa DO [address] [place] [address] Physical - [facility] SENT TO [facility] 02/27/2025 1:15 PM EST Radiology [facility] [address] [place] [phone] documented as of this encounter Visit Diagnoses Diagnosis ABNORMAL CLINICAL FINDING- Primary Other abnormal clinical finding documented in this encounter Additional Health Concerns Infection Onset Date Last Indicated Resolved Time COVID-19 Rule-Out 01/05/2021 01/05/2021 01/06/2021 11:16 AM EDT documented as of this encounter Care Teams Capability Lead Relationship Specialty Start Date End Date Baldo Parmar MD PCP - General 05/11/12 12/11/17 Ami Osullivan PA-C PCP - Backup PCP Internal Medicine 06/16/15 11/24/17 Elizabet Hair MD PCP - General Family Medicine 12/12/17 02/14/18 Elizabet Hair MD PCP - General 02/15/18 08/15/18 Marybeth Chacon MD PCP - General Internal Medicine 08/16/18 09/02/19 Alfreda Costa DO [address] [place] [address] PCP - General Internal Medicine 09/03/19 Leela Nieto NP [address] [place] [address] PCP - Backup PCP Internal Medicine 09/03/19 11/17/22 documented as of this encounter
--- OUTSIDE RECORDS SUMMARY | 2024-06-25 19:23 | XMS_ITS | Encounter Summary ---
Demographics Address [address] [place] [address] Mobile Phone Home Phone Email Address [email or web address] Preferred Language Namibian Marital Status Protestant Affiliation Unknown Race White Ethnic Group Unknown Author Organization [facility] Address [address] [place] [address] Support Name Relationship Address Phone [place] Paz Germain Emergency Contact [address] [place] [address] Shana Danielle Emergency Contact [address] [place] [address] Care Team Providers Care Insole Filler Name Role Phone Baldo Parmar MD Primary Care Provider Unavaila Ami Ansari-C Unavailable Unavailab Elizabet Hawthorne MD Primary Care Provider [phone] Elizabet Hair MD Primary Care Provider [phone] Marybeth Chacon MD Primary Care Provider [phone] Alfreda Costa DO Primary Care Provider [phone] Leela Nieto SPORTS WRITER Unavailable Unavailable Encounter Details Date Type Department Care Team (Late st Contact Info) Description 05/08/2014 Orders Only [facility] Endocrinology [address] [place] [phone] Marcy David MD [facility] [address] [address] Social History Tobacco Use Types Packs/Day Years [...] Description 06/27/2024 11:00 AM EST Office Visit [facility] [address] [place] [address] Deanne Ibarra PA [address] [place] [address] HFU 08/16/2024 10:25 AM EDT CPE - Comprehensive Physical Exam [facility] [address] [place] [phone] Alfreda Costa DO [address] [place] [address] Physical - LETTER SENT TO [facility] 02/27/2025 1:15 PM EST Radiology [facility]. Mammography [address] [place] [address] documented as of this encounter Visit Diagnoses Diagnosis Thyroid nodule- Primary Nontoxic uninodular goiter documented in this encounter Additional Health Concerns Infection Onset Date Last Indicated Resolved Time COVID-19 Rule-Out 01/05/2021 01/05/2021 01/06/2021 11:16 AM EDT documented as of this encounter Care Teams Insole Filler Relationship Specialty Start Date End Date Baldo Parmar MD PCP - General 05/11/12 12/11/17 Ami Osullivan PA-C PCP - Backup PCP Internal Medicine 06/16/15 11/24/17 Elizabet Hair MD PCP - General Family Medicine 12/12/17 02/14/18 Elizabet Hair MD PCP - General 02/15/18 08/15/18 Marybeth Chacon MD PCP - General Internal Medicine 08/16/18 09/02/19 Alfreda Costa DO 4 [place] [address] PCP - General Internal Medicine 09/03/19 Leela Nieto NP [address] [place] [address] PCP - Backup PCP Internal Medicine 09/03/19 11/17/22 documented as of this encounter
--- OUTSIDE RECORDS SUMMARY | 2024-06-25 19:23 | XMS_ITS | Encounter Summary ---
Demographics Address [address] [place] [address] Mobile Phone Home Phone Email Address Preferred Language Sammarinese Marital Status Spiritism Affiliation Unknown Race White Ethnic Group Unknown Author Organization [facility] Address [address] [place] [address] Support Name Relationship Address Phone [place] Haas Emergency Contact [address] [place] [address] Shana Danielle Emergency Contact [address] [place] [address] Care Team Providers Care Nurse Aide Name Role Phone Marybeth Chacon MD Primary Care Provider [phone] Alfreda Costa DO Primary Care Provider [phone] Leela Nieto FACILITY TECHNICIAN Unavailable Unavailable Encounter Details Date Type Department Care Team (Late st Contact Info) Description 10/23/2018 Orders Only [facility] [address] [place] [phone] Joide Avilez PA [address] [place] [address] Social History Tobacco Use Types Packs/Day Years [...] Progress Notes * Jodie Avilez PA - 10/24/2018 9:46 AM EDT Kassandrat. documented in this encounter Plan of Treatment Upcoming Encounters Date Type Department Care Team (Late st Contact Info) Description 06/27/2024 11:00 AM EST Office Visit [facility] [address] [place] [phone] Deanne Ibarra PA [address] [place] [address] HFU 08/16/2024 10:25 AM EDT CPE - Comprehensive Physical Exam [facility] [address] [place] [phone] Alfreda Costa DO [address] [place] [address] Physical - LETTER SENT TO [facility] 02/27/2025 1:15 PM EST Radiology [facility] [address] [place] [address] documented as of this encounter Procedures * Due to [place] state law, this organization might not be sharing negative HIV tests. Procedure Name Priority Date/Time Associated Diagnosis Comments ALANINE AMINOTRANSFERASE (ALT), SERUM Routine 10/23/2018 2:53 PM EDT Elevated ALT measurement documented in this encounter Results * Due to [place] state law, this organization might not be sharing negative HIV tests. * ALANINE AMINOTRANSFERASE (ALT), SERUM (10/23/2018 2:53 PM EDT) ALT (SGPT) 16 6 - 29 U/L [facility] 10/23/2018 2:53 PM EDT 10/23/2018 8:01 PM EDT Narrative Resulting Agency Comment [id number] us Jodie [facility] SAME DAY RESULT Final Re sult [facility] [address] [place] [address] documented in this encounter Visit Diagnoses Diagnosis Elevated ALT measurement Nonspecific elevation of levels of transaminase or lactic acid dehydrogenase (LDH) documented in this encounter Additional Health Concerns Infection Onset Date Last Indicated Resolved Time COVID-19 Rule-Out 01/05/2021 01/05/2021 01/06/2021 11:16 AM EDT documented as of this encounter Care Teams Nurse Aide Relationship Specialty Start Date End Date Marybeth Chacon MD PCP - General Internal Medicine 08/16/18 09/02/19 Alfreda Costa DO 4 [place] [address] PCP - General Internal Medicine 09/03/19 Leela Nieto NP [address] [place] [address] PCP - Backup PCP Internal Medicine 09/03/19 11/17/22 documented as of this encounter
--- OUTSIDE RECORDS SUMMARY | 2024-06-25 19:24 | XMS_ITS | Encounter Summary ---
Demographics Address [address] [place] [address] Mobile Phone Home Phone Email Address Preferred Language Beninese Marital Status Denominational Affiliation Unknown Race White Ethnic Group Unknown Author Organization [facility] Address [address] [place] [address] Support Name Relationship Address Phone [place] Haas Emergency Contact [address] [place] [address] Shana Danielle Emergency Contact [address] [facility] [place] [address] Care Team Providers Care Radio Repair Teacher Name Role Phone Baldo Parmar MD Primary Care Provider Unavaila ble Ami Osullivan-C Unavailable Unavailab Elizabet Hawthorne MD Primary Care Provider [phone] Elizabet Hair MD Primary Care Provider [phone] Marybeth Chacon MD Primary Care Provider [phone] Alfreda Costa DO Primary Care Provider Leela Nieto REINFORCING BAR SETTER Unavailable Unavailable Encounter Details Date Type Department Care Team (Late st Contact Info) Description 10/03/2014 Orders Only [facility] [address] [place] [phone] Ami Osullivan, PA-C Social History Tobacco Use [...] Progress Notes * Roxana Fowler MA - 10/04/2014 9:20 AM EDTQuick Note: Letter sent * Nancy Marie - 10/04/2014 8:58 AM EDTQuick Note: Please send letter,This pt's selected labs/tests are normal/stable * Tricia Thompson NP - 10/04/2014 8:38 AM EDTQuick Note: This pt's selected labs/tests are normal/stable/or as expected for given condition. Please send theappropriate labs letter. As always, if there is any question or concern from the pt please ask. Thank you, Tricia Thompson NP-Megan documented in this encounter Plan of Treatment Upcoming Encounters Date Type Department Care Team (Late st Contact Info) Description 06/27/2024 11:00 AM EST Office Visit [facility] [address] [place] [address] Deanne Ibarra PA [address] [place] [address] [facility] [[email or web address]] 08/16/2024 10:25 AM EDT CPE - Comprehensive Physical Exam [facility] [address] [place] [address] Alfreda Costa DO 4 [place] [address] Physical - LETTER SENT TO [facility] 02/27/2025 1:15 PM EST Radiology [address] Mammography [address] [place] [address] documented as of this encounter Procedures * Due to [place] state law, this organization might not be sharing negative HIV tests. Procedure Name Priority Date/Time Associated Diagnosis Comments CBC INCLUDES DIFFERENTIAL AND PLATELET COUNT Routine 10/03/2014 1:06 PM EDT Screening for other disorders of blood and blood-forming organs ALBUMIN (MICROALBUMIN), RANDOM URINE, WITH CREATININE Routine 10/03/2014 1:06 PM EDT Elevated cholesterol Blood glucose abnormal documented in this encounter Results * Due to [place] state law, this organization might not be sharing negative HIV tests. * CBC INCLUDES DIFFERENTIAL AND PLATELET COUNT (10/03/2014 1:06 PM EDT) WBC 7.2 3.8 - 10.8 Thousand/u L [facility] Comment:{WHITE BLOOD CELL CO UNT {[id number]) RBC 4.47 3.80 - 5.10 Million/uL [facility] Comment:{RED BLOOD CELL COUN T {[id number]) Hemoglobin 12.8 11.7 - 15.5 g/dL [facility] Comment:{HEMOGLOBIN {[id number]) Hematocrit 37.6 35.0 - 45.0 % [facility] Comment:{HEMATOCRIT {[id number]) MCV 84.1 80.0 - 100.0 fL [facility] Comment:{MCV {[id number]) MCH 28.7 27.0 - 33.0 pg [facility] Comment:{MCH {[id number]) MCHC 34.1 32.0 - 36.0 g/dL [facility] Comment:{MCHC {[id number]) RDW 14.0 11.0 - 15.0 % [facility] Comment:{RDW {[id number]) PLT 254 140 - 400 Thousand/u L [facility] Comment:{PLATELET COUNT {[id number]) MPV 8.3 7.5 - 11.5 fL [facility] Comment:{MPV {[id number]) Neutrophils # 3370 1500 - 7800 cells/uL [facility] Comment:{ABSOLUTE NEUTROPHIL S {[id number]) Lymphocytes # 3096 850 - 3900 cells/uL [facility] Comment:{ABSOLUTE LYMPHOCYTE S {[id number]) Monocytes # 554 200 - 950 cells/uL [facility] Comment:{ABSOLUTE MONOCYTES {[id number]) Eosinophils # 144 15 - 500 cells/uL [facility] Comment:{ABSOLUTE EOSINOPHIL S {[id number]) Basophils # 36 0 - 200 cells/uL [facility] Comment:{ABSOLUTE BASOPHILS {[id number]) Neutrophils % 46.8 % [facility] Comment:{NEUTROPHILS {[id number]) Lymphocytes % 43.0 % [facility] Comment:{LYMPHOCYTES {[id number]) Monocytes % 7.7 % [facility] Comment:{MONOCYTES {[id number]) Eosinophils % 2.0 % [facility] Comment:{EOSINOPHILS {[id number]) Basophils % 0.5 % [facility] Comment:{BASOPHILS {[id number]) 10/03/2014 1:06 PM EDT 10/03/2014 10:23 PM EDT Narrative Resulting Agency Comment [id number] Ami Osullivan PA-C LAB SAME DAY RESULT Final Result [facility] [address] [place] [address] * ALBUMIN (MICROALBUMIN), RANDOM URINE, WITH CREATININE (10/03/2014 1:06 PM EDT) Creatinine (Urine) 26 20 - 320 mg/dL [facility] Comment:{CREATININE, RANDOM URINE {[id number]) Albumin (Urine) <0.2 mg/dL [facility] Comment: {MICROALBUMIN {[id number]) Reference Range Not established Albumin/Creatinine (Urine) NOTE <30 mcg/mg creat [facility] Comment: {MICROALBUMIN/CREATININE RATIO, RANDOM URINE {[id number]) The microalbumin value is less than 0.2 mg/dL therefore we are unable to calculate excretion and/or creatinine ratio. The ADA defines abnormalities in albumin excretion as follows: Category ? Result (mcg/mg creatinine) Normal ?<30 Microalbuminuria ? 30-299 Clinical albuminuria ?? > OR = 300 The ADA recommends that at least two of three specimens collected within a 3-6 month period be abnormal before considering a patient to be within a diagnostic category. 10/03/2014 1:06 PM EDT 10/03/2014 10:23 PM EDT Narrative Resulting Agency Comment [id number] Ami Osullivan PA-C LABORATORY Final Resu lt [facility] [address] [place] [address] documented in this encounter Visit Diagnoses Diagnosis Elevated cholesterol Pure hypercholesterolemia Blood glucose abnormal Other abnormal glucose Screening for other disorders of blood and blood-forming organs Screen for colon cancer Special screening for malignant neoplasms, colon documented in this encounter Additional Health Concerns Infection Onset Date Last Indicated Resolved Time COVID-19 Rule-Out 01/05/2021 01/05/2021 01/06/2021 11:16 AM EDT documented as of this encounter Care Teams Radio Repair Teacher Relationship Specialty Start Date End Date Baldo Parmar MD PCP - General 05/11/12 12/11/17 Ami Osullivan PA-C PCP - Backup PCP Internal Medicine 06/16/15 11/24/17 Elizabet Hair MD PCP - General Family Medicine 12/12/17 02/14/18 Elizabet Hair MD PCP - General 02/15/18 08/15/18 Marybeth Chacon MD PCP - General Internal Medicine 08/16/18 09/02/19 Alfreda Costa DO [address] [place] [address] PCP - General Internal Medicine 09/03/19 Leela Nieto NP [address] [place] [address] PCP - Backup PCP Internal Medicine 09/03/19 11/17/22 documented as of this encounter
--- OUTSIDE RECORDS SUMMARY | 2024-06-25 19:24 | XMS_ITS | Encounter Summary ---
Demographics Address [address] [place] [address] Mobile Phone Home Phone Email Address Preferred Language Tanzanian Marital Status Mormonism Affiliation Unknown Race White Ethnic Group Unknown Author Organization [facility] Address [address] [place] [address] Support Name Relationship Address Phone [place] Haas Emergency Contact 2 [address] [place] [address] Shana Danielle Emergency Contact [address] [facility] [place] [address] Care Team Providers Care Sat Tutor Name Role Phone Baldo Parmar MD Primary Care Provider Unavaila Ami Ansari-Megan Unavailable Unavailab Elizabet Hawthorne MD Primary Care Provider [phone] Elizabet Hair MD Primary Care Provider [phone] Marybeth Chacon MD Primary Care Provider [phone] Alfreda Costa DO Primary Care Provider [phone] PATROL COMMANDER Unavailable Unavailable Encounter Details Date Type Department Care Team ([facility] Contact Info) Description 09/16/2009 Orders Only [facility] [address] [place] [phone] Baldo Parmar MD Social History Tobacco Use [...] Upcoming Encounters Date Type Department Care Team ([facility] Contact Info) Description 06/27/2024 11:00 AM EST Office Visit [facility] [address] [place] [phone] Deanne Ibarra PA [address] [place] [address] HFU 08/16/2024 10:25 AM EDT CPE - Comprehensive Physical Exam [facility] [address] [place] [phone] Alfreda Costa DO [address] [place] [address] Physical - LETTER SENT TO [facility] 02/27/2025 1:15 PM EST Radiology [facility] [address] [place] [phone] Scheduled Orders Name Type Priority Associated Diagnoses Orde r Schedule CYTOLOGY URINE Lab Routine Abnormal clinical finding Ordered: 09/16/2009 documented as of this encounter Visit Diagnoses Diagnosis Abnormal clinical finding- Primary Other abnormal clinical finding documented in this encounter Additional Health Concerns Infection Onset Date Last Indicated Resolved Time COVID-19 Rule-Out 01/05/2021 01/05/2021 01/06/2021 11:16 AM EDT documented as of this encounter Care Teams Sat Tutor Relationship Specialty Start Date End Date Baldo Parmar MD PCP - General 05/11/12 12/11/17 Ami Osullivan, PATellyC PCP - Backup PCP Internal Medicine 06/16/15 11/24/17 Elizabet Hair MD PCP - General Family Medicine 12/12/17 02/14/18 Elizabet Hair MD PCP - General 02/15/18 08/15/18 Marybeth Chacon MD PCP - General Internal Medicine 08/16/18 09/02/19 Alfreda Costa DO [address] [place] [address] PCP - General Internal Medicine 09/03/19 Leela Nieto NP [address] [place] [address] PCP - Backup PCP Internal Medicine 09/03/19 11/17/22 documented as of this encounter
--- OUTSIDE RECORDS SUMMARY | 2024-06-25 19:24 | XMS_ITS | Encounter Summary ---
Demographics Address [address] [place] [address] Mobile Phone Home Phone Email Address Preferred Language Japanese Marital Status Hoahaoism Affiliation Unknown Race White Ethnic Group Unknown Author Organization [facility] Address [address] [place] [address] Support Name Relationship Address Phone [place] Haas Emergency Contact 2 [address] [place] [address] Shana Danielle Emergency Contact [address] [place] [address] Care Team Providers Care Refractory Repairer Name Role Phone Baldo Parmar MD Primary Care Provider Unavaila Ami Ansari-Megan Unavailable Unavailab Elizabet Hawthorne MD Primary Care Provider [phone] Elizabet Hair MD Primary Care Provider [phone] Marybeth Chacon MD Primary Care Provider [phone] Alfreda Costa DO Primary Care Provider [phone] Leela Nieto GENERAL ENGINEERING TEACHER Unavailable Unavailable Encounter Details Date Type Department Care Team (Late st Contact Info) Description 11/12/2009 Orders Only [facility] [address] [place] [phone] Baldo Parmar MD Social History Tobacco Use [...] encounter Progress Notes * Alfreda Regan - 11/17/2009 3:33 PM EDTQuick Note: Letter sent * Radha Thomas - 11/17/2009 1:44 PM EDTQuick Note: TO KAILASH FOR LETTER * Baldo Parmar - 11/16/2009 3:49 PM EDTQuick Note: The results of this test are normal/ stable and/or acceptable notify patient - there is no need to make any changes in approach - as always if the patient has any questions/problems please let me know - * Maria Eugenia Lyons - 11/14/2009 9:24 AM EDTQuick Note: . * Maria Eugenia Lyons - 11/13/2009 9:26 AM EDTQuick Note: Holding for final and ov 11/14 documented in this encounter Plan of Treatment Upcoming Encounters Date Type Department Care Team (Late st Contact Info) Description 06/27/2024 11:00 AM EST Office Visit [facility] [address] [place] [phone] Deanne Ibarra PA [address] [place] [address] U 08/16/2024 10:25 AM EDT CPE - Comprehensive Physical Exam [facility] [address] [place] [phone] Alfreda Costa DO [address] [place] [address] Physical - LETTER SENT TO [facility] 02/27/2025 1:15 PM EST Radiology [facility] Mammography [address] [place] [address] documented as of this encounter Procedures * Due to [place] state law, this organization might not be sharing negative HIV tests. Procedure Name Priority Date/Time Associated Diagnosis Comments BASIC METABOLIC PANEL W/GLOMERULAR FILTRATION RATE (EGFR) Routine 11/12/2009 Screening for hypertension CULTURE, URINE Routine 11/12/2009 CBC 5 PART DIFF Routine 11/12/2009 Screening for other and unspecified deficiency anemia ALANINE AMINOTRANSFERASE (ALT), SERUM Routine 11/12/2009 Screening for lipoid disorders TSH, THYROTROPIN Routine 11/12/2009 Screening for thyroid disorder URINALYSIS,C&S IF INDICATED Routine 11/12/2009 Screening for malignant neoplasm of the bladder documented in this encounter Results * Due to [place] state law, this organization might not be sharing negative HIV tests. * CULTURE, URINE (11/12/2009) URINE CULTURE CLEAN VOID SEE TEXT [facility] Comment: SOURCE: URINE NO GROWTH 11/12/2009 11/12/2009 3:5 8 PM EDT Narrative [facility] - 11/13/2009 5:48 PM EDT Report Comments: ADELINA 11-14-2009 us Baldo Parmar MD LABORATORY Final Result Performing Organization Address City/State/[facility] Co de Phone Number [facility] [address] [place] [address] * ALANINE AMINOTRANSFERASE (ALT), SERUM (11/12/2009) ALT (SGPT) 11 6 - 40 U/L [facility] 11/12/2009 11/12/2009 3:5 8 PM EDT Narrative [facility] - 11/12/2009 11:35 PM EDT Report Comments: ADELINA 11-14-2009 us Baldo Parmar MD LAB SAME DAY RESULT Final Resul t Performing Organization Address [facility] de Phone Number [facility] [address] [place] [address] * (ABNORMAL) URINALYSIS,C&S IF INDICATED (11/12/2009) COLOR (URINE) YELLOW YELLOW [facility] APPEARANCE (URINE) CLOUDY(A) CLEAR [facility] SPECIFIC GRAVITY 1.026 1.001 - 1.035 [facility] PH (URINE) 6.0 5.0 - 8.0 [facility] PROTEIN (URINE) NEG NEG [facility] GLUCOSE (URINE) NEG NEG [facility] Ketones (Urine) NEG NEG [facility] BILIRUBIN (URINE) NEG NEG [facility] BLOOD (URINE) NEG NEG [facility] WBC (URINE) TRACE(A) NEG [facility] NITRITE (URINE) NEG NEG [facility] WBC (URINE) 0-5 0-4/HPF [facility] RBC (Urine Sed) 0 0-3/HPF [facility] EPITHELIAL CELLS.SQUAMOUS (URINE SED) 10-20(A) 0-5/HPF [facility] EPITHELIAL CELLS.TRANSITI ONAL (URINE SED) 0 0-5/HPF [facility] EPITHELIAL CELLS.RENAL (URINE SED) 0 0-3/HPF [facility] BACTERIA (URINE) FEW(A) NONE SEEN [facility] 11/12/2009 11/12/2009 3:5 8 PM EDT Narrative [facility] - 11/13/2009 4:27 AM EDT Report Comments: ADELINA 11-14-2009 Baldo Parmar MD LABORATORY Final Result Performing Organization Address [facility] de Phone Number [facility] [address] [place] [address] * TSH (THYROTROPIN) (11/12/2009) TSH, THYROTROPIN 1.060 0.40 - 4.50 UIU/ML [facility] 11/12/2009 11/12/2009 3:5 8 PM EDT Narrative [facility] - 11/13/2009 3:12 AM EDT Report Comments: ADELINA 11-14-2009 Baldo Parmar MD LABORATORY Final Result Performing Organization Address [facility] Co de Phone Number [facility] [address] [place] [address] * BASIC METABOLIC PANEL W/GLOMERULAR FILTRATION RATE (EGFR) (11/12/2009) [facility] CALCIUM 8.9 8.6 - 10.2 MG/DL [facility] BUN 13 7 - 25 MG/DL [facility] CREATININE 0.89 0.59 - 1.07 MG/DL [facility] Glucose 81 65 - 99 MG/DL [facility] SODIUM 140 135 - 146 MMOL/L [facility] POTASSIUM 3.8 3.5 - 5.3 MMOL/L [facility] CHLORIDE 106 98 - 110 MMOL/L [facility] CARBON DIOXIDE 24 21 - 33 MMOL/L [facility] GFR > 60 60 AND ABOVE [facility] Comment:UNITS: ML/MIN/1.73 S Q METERS EGFR > 60 60 AND ABOVE [facility] Comment:UNITS: ML/MIN/1.73 S Q METERS 11/12/2009 11/12/2009 3:5 8 PM EDT Narrative [facility] - 11/12/2009 11:35 PM EDT Please note that this estimated [...] with more precise needs for GFR calculation. Report Comments: OV 11-14-2009 Baldo Parmar MD LABORATORY Final Result [facility] [address] [place] [address] * CBC 5 PART DIFF (11/12/2009) [facility] WHITE BLOOD COUNT 6.1 3.8 - 10.8 THOUS/UL [facility] RBC 4.18 3.80 - 5.10 MIL/UL [facility] Hemoglobin 12.8 11.7 - 15.5 G/DL [facility] HCT (HEMATOCRIT) 37.5 35.0 - 45.0 % [facility] MCV 89.6 80.0 - 100.0 FL [facility] MCH 30.6 27.0 - 33.0 PG [facility] MCHC 34.2 32.0 - 36.0 G/DL [facility] BAND % 0 0 - 5 % [facility] NEUTROPHIL % 56 48 - 75 % [facility] LYMPHOCYTE % 34 17 - 40 % [facility] MONOCYTE % 8 0 - 14 % [facility] EOSINOPHIL % 2 0 - 5 % [facility] BASOPHIL % 0 0 - 3 % [facility] ATYPICAL LYMPHOCYTE % 0 0 - 5 % [facility] PLATELETS 233 140 - 400 THOUS/UL [facility] BANDS # 0 0 - 750 CELLS/MCL [facility] NEUTROPHILS # 3416 1500 - 7800 CELLS/MCL [facility] LYMPHOCYTES # 2074 850 - 3900 CELLS/MCL [facility] MONOCYTES # 488 200 - 950 CELLS/MCL [facility] EOSINOPHILS # 122 15 - 550 CELLS/MCL [facility] BASOPHILS # 0 0 - 200 CELLS/MCL [facility] ATYPICAL LYMPHOCYTES # 0 0 - 200 CELLS/MCL [facility] RDW 13.6 11.0 - 15.0 % [facility] MPV 8.1 7.5 - 11.5 FL [facility] 11/12/2009 11/12/2009 3:5 8 PM EDT Narrative [facility] - 11/12/2009 7:59 PM EDT Report Comments: OV 11-14-2009 us Baldo Parmar MD LAB SAME DAY RESULT Final Resul t [facility] [address] [place] [address] documented in this encounter Visit Diagnoses Diagnosis Screening for other and unspecified deficiency anemia Screening for hypertension Screening for thyroid disorder Screening for malignant neoplasm of the bladder Screening for lipoid disorders documented in this encounter Additional Health Concerns Infection Onset Date Last Indicated Resolved Time COVID-19 Rule-Out 01/05/2021 01/05/2021 01/06/2021 11:16 AM EDT documented as of this encounter Care Teams Refractory Repairer Relationship Specialty Start Date End Date Baldo Parmar MD PCP - General 05/11/12 12/11/17 Ami Osullivan PA-C PCP - Backup PCP Internal Medicine 06/16/15 11/24/17 Elizabet Hair MD PCP - General Family Medicine 12/12/17 02/14/18 Elizabet Hair MD PCP - General 02/15/18 08/15/18 Marybeth Chacon MD PCP - General Internal Medicine 08/16/18 09/02/19 Alfreda Costa DO [address] [place] [address] PCP - General Internal Medicine 09/03/19 Leela Nieto NP [address] [place] [address] PCP - Backup PCP Internal Medicine 09/03/19 11/17/22 documented as of this encounter
--- OUTSIDE RECORDS SUMMARY | 2024-06-25 19:24 | XMS_ITS | Encounter Summary ---
Demographics Address [address] [place] [address] Mobile Phone Home Phone Email Address Preferred Language Salvadorean Marital Status Mormonism Affiliation Unknown Race White Ethnic Group Unknown Author Organization [facility] Address [address] [place] [address] Support Name Relationship Address Phone [place] Haas Emergency Contact 2 [address] [place] [address] Shana Danielle Emergency Contact [address] [facility] [place] [address] Care Team Providers Care General Manager In Training Name Role Phone Baldo Parmar MD Primary Care Provider Unavaila Ami Ansari-Megan Unavailable Unavailab Elizabet Hawthorne MD Primary Care Provider [phone] Elizabet Hair MD Primary Care Provider [phone] Marybeth Chacon MD Primary Care Provider [phone] Alfreda Costa DO Primary Care Provider [phone] Leela Nieto MUSIC INDUSTRY INTERN Unavailable Unavailable Encounter Details Date Type Department Care Team ([facility] Contact Info) Description 01/26/2008 Orders Only [facility] [address] [place] [phone] Baldo Parmar MD Social History Tobacco Use [...] Encounters Date Type Department Care Team ([facility] Contact Info) Description 06/27/2024 11:00 AM EST Office Visit [facility] [address] [place] [phone] Deanne Ibarra PA [address] [place] [address] HFU 08/16/2024 10:25 AM EDT CPE - Comprehensive Physical Exam [facility] [address] [place] [phone] Alfreda Costa DO [address] [place] [address] Physical - LETTER SENT TO [facility] 02/27/2025 1:15 PM EST Radiology [facility] [address] [place] [phone] documented as of this encounter Visit Diagnoses Not on filedocumented in this encounter Additional Health Concerns Infection Onset Date Last Indicated Resolved Time COVID-19 Rule-Out 01/05/2021 01/05/2021 01/06/2021 11:16 AM EDT documented as of this encounter Care Teams General Manager In Training Relationship Specialty Start Date End Date Baldo Parmar MD PCP - General 05/11/12 12/11/17 Ami Osullivan, JARAD PCP - Backup PCP Internal Medicine 06/16/15 11/24/17 Elizabet Hair MD PCP - General Family Medicine 12/12/17 02/14/18 Elizabet Hair MD PCP - General 02/15/18 08/15/18 Marybeth Chacon MD PCP - General Internal Medicine 08/16/18 09/02/19 Alfreda Costa DO [address] [place] [address] PCP - General Internal Medicine 09/03/19 Leela Nieto NP [address] [place] [address] PCP - Backup PCP Internal Medicine 09/03/19 11/17/22 documented as of this encounter
--- OUTSIDE RECORDS SUMMARY | 2024-06-25 19:24 | XMS_ITS | Encounter Summary ---
Demographics Address [address] [place] [address] Mobile Phone Home Phone Email Address Preferred Language Belarusian Marital Status Yazidism Affiliation Unknown Race White Ethnic Group Unknown Author Organization [facility] Address [address] [place] [address] Support Name Relationship Address Phone [place] Haas Emergency Contact 2 [address] [place] [address] Shana Danielle Emergency Contact [address] [place] [address] Care Team Providers Care Logging Equipment Mechanic Name Role Phone Baldo Parmar MD Primary Care Provider Unavaila Ami Ansari-Megan Unavailable Unavailab Elizabet Hawthorne MD Primary Care Provider [phone] Elizabet Hair MD Primary Care Provider [phone] Marybeth Chacon MD Primary Care Provider [phone] Alfreda Costa DO Primary Care Provider [phone] Leela Nieto COUNTER CLERK Unavailable Unavailable Encounter Details Date Type Department Care Team (Late st Contact Info) Description 05/21/2009 Orders Only [facility] [address] [place] [phone] Baldo Parmar MD Social History Tobacco Use [...] as of this encounter Progress Notes * Maria Eugenia Lyons - 05/22/2009 9:58 AM ESTQuick Note: . * Maria Eugenia Lyons - 05/22/2009 7:02 AM ESTQuick Note: Holding for final documented in this encounter Plan of Treatment Upcoming Encounters Date Type Department Care Team (Late st Contact Info) Description 06/27/2024 11:00 AM EST Office Visit [facility] [address] [place] [phone] Deanne Ibarra PA [address] [place] [address] HFU 08/16/2024 10:25 AM EDT CPE - Comprehensive Physical Exam [facility] [address] [place] [phone] Alfreda Costa DO [address] [place] [address] Physical - LETTER SENT TO [facility] 02/27/2025 1:15 PM EST Radiology [facility]. Mammography [address] [place] [address] documented as of this encounter Procedures * Due to [place] law, this organization might not be sharing negative HIV tests. Procedure Name Priority Date/Time Associated Diagnosis Comments LYME DISEASE PANEL W/WB REFLEX Routine 05/21/2009 Screening for eye condition Malaise and fatigue CBC 5 PART DIFF Routine 05/21/2009 Screening for eye condition Malaise and fatigue ALANINE AMINOTRANSFERASE (ALT), SERUM Routine 05/21/2009 Screening for eye condition Malaise and fatigue TSH, THYROTROPIN Routine 05/21/2009 Screening for eye condition Malaise and fatigue documented in this encounter Results * Due to [place] law, this organization might not be sharing negative HIV tests. * LYME DISEASE PANEL W/WB REFLEX (05/21/2009) Pathologist [facility] LYME (B. BURGDORFERI) AB SCREEN NEGATIVE [facility] Comment: < OR = 0.90 ?? NEGATIVE 0.91 - 1.09 ?? EQUIVOCAL > OR = 1.10 ?? POSTIVE LYME EIA SCREEN IS REFLEXED TO WESTERN BLOT IF POSITIVE. 05/21/2009 05/21/2009 7:3 7 PM EST Baldo Parmar MD LABORATORY Final Result Performing Organization Address [facility] de Phone Number [facility] [address] [place] [address] * ALANINE AMINOTRANSFERASE (ALT), SERUM (05/21/2009) Pathologist [facility] ALT (SGPT) 8 6 - 40 U/L [facility] 05/21/2009 05/21/2009 7:3 7 PM EST Baldo Parmar MD LAB SAME DAY RESULT Final Resul t Performing Organization Address [facility] de Phone Number [facility] [address] [place] [address] * TSH (THYROTROPIN) (05/21/2009) Pathologist [facility] TSH, THYROTROPIN 0.61 0.40 - 4.50 UIU/ML [facility] 05/21/2009 05/21/2009 7:3 7 PM EST Baldo Parmar MD LABORATORY Final Result Performing Organization Address [facility] de Phone Number [facility] [address] [place] [address] * CBC 5 PART DIFF (05/21/2009) Pathologist [facility] WHITE BLOOD COUNT 7.0 3.8 - 10.8 THOUS/UL [facility] RBC 4.43 3.80 - 5.10 MIL/UL [facility] Hemoglobin 13.2 11.7 - 15.5 G/DL [facility] HCT (HEMATOCRIT) 39.0 35.0 - 45.0 % [facility] MCV 88.0 80.0 - 100.0 FL [facility] MCH 29.8 27.0 - 33.0 PG [facility] MCHC 33.9 32.0 - 36.0 G/DL [facility] BAND % 0 0 - 5 % [facility] NEUTROPHIL % 51 48 - 75 % [facility] LYMPHOCYTE % 35 17 - 40 % [facility] MONOCYTE % 10 0 - 14 % [facility] EOSINOPHIL % 3 0 - 5 % [facility] BASOPHIL % 1 0 - 3 % [facility] ATYPICAL LYMPHOCYTE % 0 0 - 5 % [facility] PLATELETS 221 140 - 400 THOUS/UL [facility] BANDS # 0 0 - 750 CELLS/MCL [facility] NEUTROPHILS # 3570 1500 - 7800 CELLS/MCL [facility] LYMPHOCYTES # 2450 850 - 3900 CELLS/MCL [facility] MONOCYTES # 700 200 - 950 CELLS/MCL [facility] EOSINOPHILS # 210 15 - 550 CELLS/MCL [facility] BASOPHILS # 70 0 - 200 CELLS/MCL [facility] ATYPICAL LYMPHOCYTES # 0 0 - 200 CELLS/MCL [facility] RDW 13.4 11.0 - 15.0 % [facility] MPV 9.0 7.5 - 11.5 FL [facility] 05/21/2009 05/21/2009 7:3 7 PM EST us Baldo Parmar MD LAB SAME DAY RESULT Final Resul t [facility] [address] [place] [address] documented in this encounter Visit Diagnoses Diagnosis Screening for eye condition Screening for other eye conditions Malaise and fatigue Other malaise and fatigue documented in this encounter Additional Health Concerns Infection Onset Date Last Indicated Resolved Time COVID-19 Rule-Out 01/05/2021 01/05/2021 01/06/2021 11:16 AM EDT documented as of this encounter Care Teams Logging Equipment Mechanic Relationship Specialty Start Date End Date Baldo Parmar MD PCP - General 05/11/12 12/11/17 Ami Osullivan, LAURITAC PCP - Backup PCP Internal Medicine 06/16/15 11/24/17 Elizabet Hair MD PCP - General Family Medicine 12/12/17 02/14/18 Elizabet Hair MD PCP - General 02/15/18 08/15/18 Marybeth Chacon MD PCP - General Internal Medicine 08/16/18 09/02/19 Alfreda Costa DO [address] [facility] [place] [address] PCP - General Internal Medicine 09/03/19 Leela Nieto NP [address] [facility] [place] [address] PCP - Backup PCP Internal Medicine 09/03/19 11/17/22 documented as of this encounter
--- OUTSIDE RECORDS SUMMARY | 2024-06-25 19:24 | XMS_ITS | Encounter Summary ---
Demographics Address [address] [place] [address] Mobile Phone Home Phone Email Address Preferred Language Belizean Marital Status Jehovah'S Witness Affiliation Unknown Race White Ethnic Group Unknown Author Organization [facility] Address [address] [place] [address] Support Name Relationship Address Phone [place] Ha[place] Emergency Contact [address] [place] [address] Shana Danielle Emergency Contact [address] [place] [address] Care Team Providers Care Balloon Maker Name Role Phone Baldo Parmar MD Primary Care Provider Unavaila Ami Ansari-C Unavailable Unavailab Elizabet Hawthorne MD Primary Care Provider [phone] Elizabet Hair MD Primary Care Provider [phone] Marybeth Chacon MD Primary Care Provider [phone] Alfreda Costa DO Primary Care Provider [phone] Leela Nieto COD CLERK Unavailable Unavailable Encounter Details Date Type Department Care Team ([facility] Contact Info) Description 06/28/2014 Orders Only [facility] [address] [place] [phone] Baldo Parmar MD Social History Tobacco Use [...] Description 06/27/2024 11:00 AM EST Office Visit [facility] [address] [place] [phone] Deanne Ibarra PA [address] [place] [address] HFU 08/16/2024 10:25 AM EDT CPE - Comprehensive Physical Exam [facility] [address] [place] [phone] Alfreda Costa DO [address] [place] [address] Physical - LETTER SENT TO [facility] 02/27/2025 1:15 PM EST Radiology [address] Mammography [address] [place] [address] documented as of this encounter Visit Diagnoses Diagnosis Acute back pain- Primary Backache, unspecified documented in this encounter Additional Health Concerns Infection Onset Date Last Indicated Resolved Time COVID-19 Rule-Out 01/05/2021 01/05/2021 01/06/2021 11:16 AM EDT documented as of this encounter Care Teams Balloon Maker Relationship Specialty Start Date End Date Baldo Parmar MD PCP - General 05/11/12 12/11/17 Ami Osullivan PA-C PCP - Backup PCP Internal Medicine 06/16/15 11/24/17 Elizabet Hair MD PCP - General Family Medicine 12/12/17 02/14/18 Elizabet Hair MD PCP - General 02/15/18 08/15/18 Marybeth Chacon MD PCP - General Internal Medicine 08/16/18 09/02/19 Alfreda Costa DO [address] [place] [address] PCP - General Internal Medicine 09/03/19 Leela Nieto NP [address] [place] [address] PCP - Backup PCP Internal Medicine 09/03/19 11/17/22 documented as of this encounter
--- OUTSIDE RECORDS SUMMARY | 2024-06-25 19:24 | XMS_ITS | Encounter Summary ---
Demographics Address [address] [place] [address] Mobile Phone Home Phone Email Address [email or web address] Preferred Language Israeli Marital Status Jehovah'S Witness Affiliation Unknown Race White Ethnic Group Unknown Author Organization [facility] Address [address] [place] [address] Support Name Relationship Address Phone [place] Haas Emergency Contact 2 [address] [place] [address] Shana Danielle Emergency Contact [address] [place] [address] Care Team Providers Care Biometrics Analyst Name Role Phone Baldo Parmar MD Primary Care Provider Unavaila ble Ami Osullivan-C Unavailable Unavailab Elizabet Hawthorne MD Primary Care Provider [phone] Elizabet Hair MD Primary Care Provider [phone] Marybeth Chacon MD Primary Care Provider [phone] Alfreda Costa DO Primary Care Provider [phone] Leela Nieto CAR TRIMMER Unavailable Unavailable Encounter Details Date Type Department Care Team (Late st Contact Info) Description 09/15/2009 Orders Only [facility] [address] [place] [phone] Ami Osullivan, PA-C Social History Tobacco Use [...] as of this encounter Progress Notes * Columba Booth RN - 09/23/2009 12:01 PM EDTQuick Note: Pt is aware of urines and the comment below is re: her pelvic u/s. Pt cont w/lower pelvic pain and has been in contact w/her design printer balloon Dr Hogue who is ordering labs. * Columba Booth RN - 09/23/2009 11:53 AM EDTQuick Note: Pt is aware. Send order for 6wk f/u to pss after your review. * Maria Eugenia Lyons - 09/18/2009 4:24 PM EDTQuick Note: . * Maria Eugenia Lyons - 09/17/2009 9:07 AM EDTQuick Note: . * Maria Eugenia Lyons - 09/16/2009 9:10 AM EDTQuick Note: Holding for final documented in this encounter Plan of Treatment Upcoming Encounters Date Type Department Care Team (Late st Contact Info) Description 06/27/2024 11:00 AM EST Office Visit [facility] [address] [place] [phone] Deanne Ibarra PA [address] [place] [address] HFU 08/16/2024 10:25 AM EDT CPE - Comprehensive Physical Exam [facility] [address] [place] [phone] Alfreda Costa DO [address] [place] [address] Physical - LETTER SENT TO [facility] 02/27/2025 1:15 PM EST Radiology [address] Mammography [address] [facility] [place] [address] documented as of this encounter Procedures * Due to [place] [employer] law, this organization might not be sharing negative HIV tests. Procedure Name Priority Date/Time Associated Diagnosis Comments NON-GYNECOLOGICAL CYTOLOGY Routine 09/16/2009 3:20 PM EDT URINALYSIS, DIP ONLY ( SITE STAT ONLY) STAT (All results called to provider) 09/15/2009 1:10 PM EDT Pelvic pain in female UTI (urinary tract infection) CULTURE, URINE Routine 09/15/2009 Pelvic pain in female UTI (urinary tract infection) URINALYSIS,MICROS COPIC ONLY Routine 09/15/2009 Pelvic pain in female UTI (urinary tract infection) documented in this encounter Results * Due to [place] state law, this organization might not be sharing negative HIV tests. * NON-GYNECOLOGICAL CYTOLOGY (09/16/2009 3:20 PM EDT) NON-GYNECOLOGICA L CYTOLOGY SEE TEXT [facility] Comment: ? NON-GYNECOLOGICAL CYTOLOGY ?SOURCE: ??URINE ?CLINICAL HISTORY: ??ADDITIONAL INFORMATION ? VOID ?RESULT: ??NO MALIGNANT CELLS ?INTERPRETATION: ??SQUAMOUS CELLS, TRANSITIONAL CELLS ? AND INFLAMMATORY CELLS ? PRIMARILY SQUAMOUS CELLS PRESENT. ?COMMENTS: ??30 ML. OF CLOUDY, LIGHT YELLOW ? FLUID, RECEIVED IN ALCOHOL ? AND PROCESSED BY THE THINPREP ? METHOD. ? PATHOLOGIST: ??MORGAN DAVIS M.D. ? *SIGNATURE ON FILE* ? RESULT DATE: ??09/18/2009 ?TECHNOLOGIST: ??KG 09/16/2009 3:20 PM EDT 09/17/2009 5:25 AM EDT Narrative [facility] - 09/18/2009 2:28 PM EDT Report Comments: 30 ML. OF CLOUDY, LIGHT YELLOW FLUID, RECEIVED IN ALCOHOL AND PROCESSED BY THE THINPREP METHOD. us Ami Osullivan PA-C PATHOLOGY-INTERFACED Final Result Performing Organization Address City/State/[facility] Co de Phone Number [facility] [address] [place] [address] * (ABNORMAL) URINALYSIS, DIP ONLY ( SITE STAT ONLY) (09/15/2009 1:10 PM EDT) COLOR (URINE) YELLOW [facility] (CLIA# [id number]) APPEARANCE (URINE) CLEAR [facility] (CLIA# [id number]) SPECIFIC GRAVITY 1.025 1.001 - 1.035 [facility] (CLIA# [id number]) PH (URINE) 6.5 5.0 - 8.0 [facility] (CLIA# [id number]) PROTEIN (URINE) NEGATIVE Neg - Neg [facility] (CLIA# [id number]) GLUCOSE (URINE) NEGATIVE Neg - Neg [facility] (CLIA# [id number]) Ketones (Urine) NEGATIVE Neg - Neg [facility] (CLIA# [id number]) BILIRUBIN (URINE) NEGATIVE Neg - Neg [facility] (CLIA# [id number]) BLOOD (URINE) 1+(A) Neg - Neg [facility] (CLIA# [id number]) WBC (URINE) TRACE(A) Neg - Neg [facility] (CLIA# [id number]) NITRITE (URINE) NEGATIVE Neg - Neg [facility] (CLIA# [id number]) Urine specimen (specimen) 09/15/2009 1:10 PM EDT Narrative [facility] (CLIA# [id number]) - 09/15/2009 1:12 PM EDT Micro and culture already ordered per provider. [facility] SAME DAY RESULT Final Result Performing Organization Address [facility] de Phone Number [facility] ([facility]# [id number]) [address] [place] [address] * URINALYSIS,MICROSCOPIC ONLY (09/15/2009) WBC (URINE) 0 0-4/HPF [facility] RBC (Urine Sed) 0 0-3/HPF [facility] EPITHELIAL CELLS.SQUAMOUS (URINE SED) 0 0-5/HPF [facility] EPITHELIAL CELLS.TRANSITIO NAL (URINE SED) 0 0-5/HPF [facility] EPITHELIAL CELLS.RENAL (URINE SED) 0 0-3/HPF [facility] BACTERIA (URINE) NONE SEEN NONE SEEN [facility] 09/15/2009 09/15/2009 10: 10 PM EDT [facility] SAME DAY RESULT Final Result Performing Organization Address [facility]/ZIP Co de Phone Number [facility] [address] [place] [address] * CULTURE, URINE (09/15/2009) URINE CULTURE CLEAN VOID SEE TEXT [facility] Comment: SOURCE: URINE MULTIPLE ORGANISMS, EACH <10,000 CFU/ML. MAY REPRESENT NORMAL MADAY CONTAMINATION FROM EXTERNAL GENITALIA. NO FURTHER TESTING. 09/15/2009 09/15/2009 10: 10 PM EDT Ami Osullivan PA-C LABORATORY Final Resu lt [facility] [address] [place] [address] documented in this encounter Visit Diagnoses Diagnosis Pelvic pain in female Unspecified symptom associated with female genital organs UTI (urinary tract infection) Urinary tract infection, site not specified documented in this encounter Additional Health Concerns Infection Onset Date Last Indicated Resolved Time COVID-19 Rule-Out 01/05/2021 01/05/2021 01/06/2021 11:16 AM EDT documented as of this encounter Care Teams Biometrics Analyst Relationship Specialty Start Date End Date Baldo Parmar MD PCP - General 05/11/12 12/11/17 Ami Osullivan PA-C PCP - Backup PCP Internal Medicine 06/16/15 11/24/17 Elizabet Hair MD PCP - General Family Medicine 12/12/17 02/14/18 Elizabet Hair MD PCP - General 02/15/18 08/15/18 Marybeth Chacon MD PCP - General Internal Medicine 08/16/18 09/02/19 Alfreda Costa DO [address] [place] [address] PCP - General Internal Medicine 09/03/19 Leela Nieto NP [address] [place] [address] PCP - Backup PCP Internal Medicine 09/03/19 11/17/22 documented as of this encounter
== END 2024-06-25 18:10 | disposition home or self-care (01) ==
LOC: HO.LNP 18:09
DX: R78.81 Bacteremia (principal); D72.829 Elevated white blood cell count, unspecified
CPT/HCPCS: 80053; 82248; 85025; 85652; 86140